=== PATIENT | female | born 1980 | race African-American/Black ===

== ENCOUNTER 2022-06-15 09:20 | Inpatient (IN) | payer BC, OTHER ==
[2022-06-15] MEDS ORDERED: ALBUTEROL 2.5 MG/3 ML NEB SOL ONE ×2 (09:37→11:26)
[2022-06-15] MEDS ORDERED: IPRATROPIUM BROM 0.5MG/2.5ML ONE (09:37)
[2022-06-15] MEDS ORDERED: MAGNESIUM SULFATE 1 gm IVPB 1 GM/100 ML BAG IV ONE (09:37)
[2022-06-15] MEDS ORDERED: METHYLPREDNISOLONE 125 MG INJ ONE (09:37)
--- OUTSIDE RECORDS SUMMARY | 2022-06-15 09:41 | XMS REPORT | Continuity of Care Document ---
:1980 Author Organization [facility] t Address [address] [place] [address] Care Team Providers Name Role Phone CHICHI SAUCEDO Primary Care Physician Unavailable CLARITA PEREZ Attending Clinician Unavailable Paola Crawford DO Attending Clinician Torey Zapata MD Attending Clinician Clarita Perez DO Attending Clinician PAOLA MEDEIROS Attending Clinician Unavailable Paola Navarrete Attending Clinician Andres Cortez Attending Clinician [phone] Roberto Hannon DO Attending Clinician Therapy, [facility] Covid Infusion Attending Clinician Unavailable Renetta Meza NP Attending Clinician RENETTA MEZA Attending Clinician Unavailable Doctor Unassigned, [place] Attending Clinician Unavailable Amber Romero Attending Clinician UNKNOWN, ATTENDING Attending Clinician Unavailable Unknown, Attending Attending Clinician Unavailable Stephen Ernst MD Attending Clinician Radiology Attending Clinician Unavailable RADIOLOGY Attending Clinician Unavailable 2, [facility] Attending Clinician Unavailable Anastacio Sibley MD Attending Clinician ANASTACIO SIBLEY Attending Clinician Unavailable ANASTACIO SIBLEY Attending Clinician Unavailable Lauren Hancock Attending Clinician CLARITA PEREZ Admitting Clinician Unavailable Clarita Perez DO Admitting Clinician RENETTA MEZA Admitting Clinician Unavailable MYA SYED Admitting Clinician Unavailable Payers Payer Name Policy Type Policy Number Effective Date Expiration Date John mortensen [facility] [id number] 2017 00:00:00 [facility] Problems Condition Condition Condition Status Onset Resolution Last Treating Co mments Source Name Details Category Date Date Treatment Clinician Date Asthma Asthma Disease Active 2020-06 Univers attacks attacks 1-21 ity of lasting lasting 00:00: [place] more than more than 00 [facility] 24 hours 24 hours Branch Obstructiv Obstructiv Disease Active U nivers e sleep e sleep 1-09 ity of apnea apnea 00:00: [place] syndrome syndrome 00 Medica l Branch Menorrhagi Menorrhagi Disease Active U nivers a with a with 7-31 ity of regular regular 00:00: [place] cycle cycle 00 Medical Branch Thyroid Thyroid Disease Active Univers nodule nodule 2-09 ity of 00:00: [place] 00 [facility] Branch Allergic Allergic Disease Active Unive rs rhinitis rhinitis 1-11 ity of 00:00: [place] 00 [facility] Branch Crohn's Crohn's Disease Active Univers disease of disease of 1-05 it y of small small 00:00: [place] intestine intestine 00 [facility] Branch Impaired Impaired Disease Active Unive rs fasting fasting 1-05 ity of glucose glucose 00:00: [place] 00 [facility] Branch Chiari I Chiari I Disease Active Unive rs malformati malformati 4-08 it y of on on 00:00: [place] 00 [facility] Branch 348.4 - 348.4 - Diagnosis Active 2013-01-04 Memoria COMPRESSIO COMPRESSIO 5-03 21:42:00 l N OF N OF 00:01: [place] Active 00 10/27/2012 OPID [place] STICHES STICHES Diagnosis Active 2011-062012-04-19 [facility] DRAINING DRAINING 0-17 16:30:00 l Active 00:00: [place] 04/12/2012 00 [facility] LEAKING LEAKING Diagnosis Active 2011-062012-04-05 Memoria FROM FROM 0-10 13:44:00 l SURGERY SURGERY 00:00: [place] SITE SITE 00 Active 04/05/2012 [facility] WOUND LEAK WOUND Diagnosis Active 2011-062012-04-06 Memoria LEAK 0-10 14:39:00 l Active 00:00: [place] 04/05/2012 00 [facility] CHIARI CHIARI Diagnosis Active 2012-03-28 Ny moria MALFORMATI MALFORMATI 9 09:43:00 l ON ON Active 00:00: [place] 02/29/2012 00 [facility] Asthma - Asthma - Problem Active 2012-12-06 Memoria currently currently 20:19:21 l dormant dormant [place] Active Problem 12/06/2012 [facility] SONIYA Fajardo Hiatal Hiatal Problem Active 2012-12-06 Mem oria hernia hernia 20:19:21 l Active [place] Problem 12/06/2012 [facility] SONIYA Fajardo Pain Pain Problem Active 2012-12-06 Memor ia Active 20:19:21 l Problem [place] 12/06/2012 [facility] SONIYA Fajardo COMPRESSIO COMPRESSI Diagnosis Active 2012-03-28 Memoria N OF BRAIN ON OF 09:43:00 l BRAIN [place] Active [facility] WOUND WOUND Diagnosis Active 2012-04-06 [place] DISRUPTION DISRUPTION 14:39:00 l NOS NOS Active Fly n [facility] CEREBROSPI CEREBROSP Diagnosis Active 2012-04-19 Memoria NAL INAL 16:30:00 l RHINORRHEA RHINORRHEA He rmann Active [facility] History of Past Illness Condition Condition Condition Status Onset Resolution Last Treating Co mments Source Name Details Category Date Date Treatment Clinician Date Headache Headache Problem 2016-11-15 2016-11-15 Memoria 11/12/201611-12 04:03:18 04:03:18 l 05:00: Fly [place] 7 Storm[facility] 00 [facility] Allergies, Adverse Reactions, Alerts Allergy Allergy Status Severity Reaction(s) Onset Inactive Treating Comm ents Source Name Type Date Date Clinician PSEUDOEP DRUG Active Anaphylaxis 2020-06 Uni vers HEDRINE- 07-17 ity of GUAIFENE 00:00: [place] SIN 00 Medical Branch Pseudoep Propensi Active Anaphylaxis 2020-06 U nivers hedrine- ty to 07-17 ity of Guaifene adverse 00:00: [place] sin reaction 00 Medical s Branch NO KNOWN Drug Active Univers ALLERGIE Class ity of S [facility] Social History Social Habit Start Date Stop Date Quantity Comments Source Exposure to Not sure [facility] SARS-CoV-2 [facility] (event) Branch Alcohol intake 2021-05-17 2021-05-17 Current University of 00:00:00 00:00:00 non-drinker of [facility] alcohol [place] (finding) Tobacco use and 2017-01-24 2017-01-24 Never used Universit y of exposure 00:00:00 00:00:00 [facility] Sex [birth year] Universit y of 00:00:00 00:00:00 [facility] Smoking Status Start Date Stop Date Source Social History [facility] Medications Ordered Filled Start Stop Current Ordering Indication Dosage Frequency Signature Comments Components Source Medication Medication Date Date Medication? Clinician (SIG) Name Name Ariane- 2020-06 Yes 1{capsu Take 1 U nivers Acetaminoph 07-19 le} capsule by it y of en-Caff 17:50: mouth as [place] (FIORICET) 46 needed. Medica l 50-300-40 Branch mg per capsule hydroxychlo 2020-06 Yes 400mg Take 400 U nivers roquine 1-23 mg by ity of sulfate 17:50: mouth. [place] (HYDROXYCHL 46 Medical OROQUINE Branch ORAL) SULFASALAZI 2020-06 Yes 200mg Take 200 U nivers NE ORAL 1-23 mg by ity of 17:50: mouth 2 [place] 46 (two) Medical times Branch daily. 2 tab SULFADIAZIN 2020-06 Take by Un anupama E ORAL 07-19 mouth. ity of 11:04: 00:00 [place] 23 :00 Medical Branch methylpredn 2020-06- No 4mg Take 4 mg Univers isolone 1-23 11-23 by mouth ity of (METHYLPRED 11:04: 00:00 as needed [place] ORAL) 23 :00 for Other Medical (for flare Branch ups). codeine-gua 2020-06 Yes 10mL Take 10 mL Univers ifenesin 23 by mouth ity of 10-100 mg/5 00:00: every 6 Maninder as mL oral 00 (six) Medical solution hours as Branch needed for Cough. Indication s: cough ipratropium 2020-06 Yes [id number] 3mL Inhale 3 Univers -albuteroL 1-23 mL every 4 ity of 0.5 mg-3 00:00: (four) [place] mg(2.5 mg 00 hours as Medica l base)/3 mL needed for Bra [facility] nebulizer Wheezing. solution sodium 2020-06 Yes [id number] 2{spray Use 2 Un anupama chloride 07-19 } Sprays in ity of 0.65 % 00:00: each [place] nasal spray 00 nostril as Me dical needed Branch (Nasal congestion ). predniSONE 2020-06- No [id number] Take 4 Univers 10 mg 07-19 12-06 tablets by ity of tablet 00:00: 05:59 mouth [place] 00 :00 daily for Medical 3 days, Branch THEN 3 tablets daily for 3 days, THEN 2 tablets daily for 3 days, THEN 1 tablet daily for 3 days. codeine-gua 2020-06 Yes 10mL 10 mL, Univ ers ifenesin 07-18 Oral, ity of (ROBITUSSIN 21:58: Q6HPRN, Maninder as AC) 10-100 32 Starting Medic al mg/5 mL on Tue Branch oral 05/18/21 solution 10 at 1558, mL Until Discontinu ed, Routine, Cough ketorolac 2020-06 Yes 30mg 30 mg, Univer s (TORADOL) 22 Intramuscu ity of injection 21:58: lar, [place] 30 mg 00 Q6HPRN, 4 Medical doses, Branch Starting on Tue05/18/21 at 1558, Until Discontinu ed, Routine, Pain (scale 4-6)
Fa culty member approving Restricted medication : TOREY ZAPATA hydrOXYchlo 2020-06 Yes 400mg 400 mg, Un anupama roQUINE 07-18 Oral, ity of (PLAQUENIL) 15:00: DAILY, [place] tablet 400 00 First dose Med ical mg on Tue Branch 05/18/21 at 0900, Until Discontinu ed
Roberta cation: Rheumatic disorder enoxaparin 2020-06 Yes 40mg 40 mg, Unive rs (LOVENOX) 07-18 Subcutaneo ity of injection 15:00: [place], [place]ILY, [place] 40 mg 00 First dose Medical on Tue Branch 05/18/21 at 0900, Until Discontinu ed, Routine sulfaSALAzi 2020-06 Yes 500mg 500 mg, Un anupama ne 07-18 Oral, BID, ity of (AZULFIDINE 14:00: First dose [place] ) tablet 00 on [facility] Medical 500 mg 05/18/21 Branch at 0800, Until Discontinu ed ondansetron 2020-06 Yes 4mg 4 mg, Slow Univers (ZOFRAN 07-18 IV Push, ity of (PF)) 07:11: Q6HPRN, [place] injection 4 05 Starting Medi jaya mg on Tue Branch 05/18/21 at 0111, Until Discontinu ed, Routine, Nausea and Vomiting (N/V) ALPRAZolam 2020-06 Yes .25mg 0.25 mg, Un anupama (XANAX) 07-18 Oral, ity of tablet 0.25 06:56: QHSPRN, Maninder as mg 18 Starting Medical on Tue Branch 05/18/21 at 0056, Until Discontinu ed, Routine, Insomnia azithromyci 2020-06 Yes 500mg 500 mg, IV Univers n 07-18 Piggyback, ity of (ZITHROMAX) 06:15: Q24H ABX, [place] 500 mg in 00 First dose Medi jaya NaCl 0.9% on Tue (NS) 250 mL 05/18/21 VIAL-MATE at 0015, IV Until piggyback Discontinu ed, Administer over 60 Minutes, 250 mL
Reas on for Anti-Infec tive: Empiric Therapy for Suspected Infection< br>Empiric Therapy Site: Respirator y
Durat ion of therapy: 72 hours methylpredn 2020-06 Yes 60mg 60 mg, Univ ers isolone sod 07-18 Slow IV ity o f succ 06:00: Push, Q6H, [place] (SOLU-MEDRO 00 First dose Me dical L) on Mon Branch injection 05/18/21 60 mg at 0000, Until Discontinu ed, Routine butalbital- 2020-06 Yes 1{tbl} 1 tablet, Univers acetaminoph 07-18 Oral, ity of en-caff 04:13: Q6HPRN, Adriel (ESGIC) 37 Starting Medical 50-325-40 on Sun Branch mg tablet 1 05/17/21 tablet at 2213, Until Discontinu ed, baig benzonatate 2020-06 Yes 100mg 100 mg, Un anupama (TESSALON 07-18 Oral, ity of PERLES) 04:13: TIDPRN, [place] capsule 100 12 Starting Medi jaya mg on Sun Branch 05/17/21 at 2213, Until Discontinu ed, Routine, Cough albuterol 2020-06 Yes 2.5mg 2.5 mg, Univ ers (PROVENTIL) 07-18 Inhalation it y of 2.5 mg /3 01:00: , Q4H, [place] mL (0.083 00 First dose Medi jaya %) (after Branch nebulizer last solution modificati 2.5 mg on) on 05/17/21 at 1900, Until Discontinu ed, HONG budesonide 2020-06 Yes .5mg 0.5 mg, [facility] ers (PULMICORT 07-18 Inhalation ity of RESPULE) 01:00: , BID, [place] nebulizer 00 First dose Medi jaya solution on Sun Branch 0.5 mg 05/17/21 at 1900, Until Discontinu ed, Routine
biology faculty member approving Restricted medication : TOREY ZAPATA ipratropium 2020-06 3mL 3 mL, Univ ers -albuteroL 07-18 Inhalation it y of (DUONEB) 00:46: 00:45 , Q2HPRN, Maninder as 0.5 mg-3 51 :51 Starting Medical mg(2.5 mg on Sun Branch base)/3 mL 05/17/21 nebulizer at 1846, solution 3 Until Mon mL 05/18/21 at 1845, Routine, Wheezing, Shortness of Breath acetaminoph 2020-06 Yes 650mg 650 mg, Un anupama en 07-18 Oral, ity of (TYLENOL) 00:46: Q6HPRN, [place]riel tablet 650 20 Starting Medic al mg on Sun Branch 05/17/21 at 1846, Until Discontinu ed, Routine, Pain (scale 1-3) albuterol 2020-06 No 5mg 5 mg, Univer s (PROVENTIL) 07-17 Inhalation i ty of 2.5 mg /3 23:45: 22:36 , ONCE, 1 [place] mL (0.083 00 :00 dose, On Medica l %) Sun Branch nebulizer 05/17/21 solution 5 at 1745, mg STAT magnesium 2020-06 No 2g 2 g, IV Univ ers sulfate in 07-17 Piggyback, it y of water 2 22:45: 23:06 ONCE, 1 [place] gram/50 mL 00 :00 dose, On Medic al (4 %) Sun Branch infusion 2 05/17/21 g at 1645, Routine albuterol 2020-06 No 5mg 5 mg, Univer s (PROVENTIL) 07-17 Inhalation i ty of 2.5 mg /3 22:30: 21:37 , ONCE, 1 [place] mL (0.083 00 :00 dose, On Medica l %) Sun Branch nebulizer 05/17/21 solution 5 at 1630, mg HONG methylpredn 2020-06 No [id number] 125mg Univers isolone sod 07-17 ity of succ 22:00: 21:36 [place] (SOLU-MEDRO 00 :00 Medical L) Branch injection 125 mg methylpredn 2020-06- No [id number] 125mg 125 mg, Univers isolone sod 07-17 Intramuscu i ty of succ 22:00: 21:36 lar, ONCE, [place] (SOLU-MEDRO 00 :00 1 dose, On Me dical L) Sun Branch injection 05/17/21 125 mg at 1600, Routine methylpredn 2020-06- No [id number] 125mg Univers isolone sod 07-17 ity of succ 22:00: 21:36 [place] (SOLU-MEDRO 00 :00 Medical L) Branch injection 125 mg bamlanivima 2020- No 700mg 700 mg, IV Univers b (EUA) 700 07-29 Infusion, it y of mg in NaCl 19:00: 20:10 ONCE, Tue [place] 0.9% (NS) 00 :00 07/29/20 at Medic al 270 mL 1300, For Branch infusion 1 dose
Ad event sales assistant as an IV infusion over 60 minutes through a PVC infusion set containing a 0.2 or 0.22 micron in-line polyethers ulfone filter.&nb sp; S low or stop infusion and treat as appropriat e if an infusion-r elated reaction occurs. Dilu toño infusion solution should be administer ed immediatel y. If immediate administra tion is not possible, store diluted bamlanivim ab infusion solution for up to 24 hours refrigerat ed at 2?C to 8?C (36?F to 46?F) or up to 7 hours at 20?C to 25?C (68?F to 77?F) including infusion time.<b r> bamlanivima 2020- No 700mg 700 mg, IV Univers b (EUA) 700 07-29 Infusion, it y of mg in NaCl 19:00: 20:10 ONCE, Tue [place] 0.9% (NS) 00 :00 07/29/20 at Medic al 270 mL 1300, For Branch infusion 1 dose
Ad event sales assistant as an IV infusion over 60 minutes through a PVC infusion set containing a 0.2 or 0.22 micron in-line polyethers ulfone filter.&nb sp; S low or stop infusion and treat as appropriat e if an infusion-r elated reaction occurs. Dilu toño infusion solution should be administer ed immediatel y. If immediate administra tion is not possible, store diluted bamlanivim ab infusion solution for up to 24 hours refrigerat ed at 2?C to 8?C (36?F to 46?F) or up to 7 hours at 20?C to 25?C (68?F to 77?F) including infusion time.<b r> NaCl 0.9% 2020- No 500mL at 999 Univ ers (NS) bolus 1-28 01-29 mL/hr, 500 it y of infusion 22:45: 00:45 mL, IV [place] 500 mL 00 :00 Infusion, Medical ONCE, 1 Branch dose, [place] 07/24/20 at 1645, STAT diphenhydrA 2020- No 25mg 25 mg, Uni vers MINE 07-24 Slow IV ity of (BENADRYL) 22:45: 22:03 Push, [place] injection 00 :00 ONCE, 1 Medical 25 mg dose, [facility] Branch 07/24/20 at 1645, STAT metoclopram 2020- No 10mg 10 mg, Uni vers joanna HCl 07-24 Slow IV ity of (REGLAN) 22:45: 22:03 Push, [place] injection 00 :00 ONCE, 1 Medical 10 mg dose, [facility] Branch 07/24/20 at 1645, HONG ketorolac 2020- No 30mg 30 mg, Unive rs (TORADOL) 07-24 Slow IV ity of injection 22:45: 22:03 Push, [place] 30 mg 00 :00 ONCE, 1 Medical dose, [facility] Branch 07/24/20 at 1645, Routine
biology faculty member approving Restricted medication : RENETTA MEZA ondansetron 2020- No 4mg Take 4 mg Univers (ZOFRAN) 4 07-24 by mouth ity of mg tablet 21:24: 00:00 every 8 [place] 45 :00 (eight) Medical hours as Branch needed. methocarbam 2020- No 500mg Take 500 Univers ol 07-24 mg by ity of (ROBAXIN) 21:24: 00:00 mouth as Man[place] as 500 mg 39 :00 needed. Medical tablet Branch acetaminoph 2020- No 1{tbl} Take 1 U nivers en-codeine 07-24 tablet by ity of 300-30 mg 21:24: 00:00 mouth [place] tablet 20 :00 every 4 Medical (four) Branch hours as needed. albuterol Yes [id number] 2{puff} Inhale 2-4 Univers 90 07-24 Puffs ity of mcg/actuati 00:00: every 4 [place] as on inhaler 00 (four) Medical hours as Branch needed for Wheezing or Shortness of Breath. benzonatate 2020-0 Yes [id number] 100mg Take 1 Univers 100 mg 1-28 capsule by ity of capsule 00:00: mouth 3 (three) Medical times Branch daily as needed for Cough. dexAMETHaso 2020-0 Yes [id number] 4mg Take 1 Univers ne 4 mg 1-28 tablet by ity of tablet 00:00: mouth [place] 00 daily. Medical Branch albuterol 2020-0 Yes [id number] 2{puff} Inhale 2-4 Univers 90 1-28 Puffs ity of mcg/actuati 00:00: every 4 Maninder as on inhaler 00 (four) Medical hours as Branch needed for Wheezing or Shortness of Breath. benzonatate 2020-0 Yes [id number] 100mg Take 1 Univers 100 mg 1-28 capsule by ity of capsule 00:00: mouth 3 (three) Medical times Branch daily as needed for Cough. dexAMETHaso 2020-0 Yes [id number] 4mg Take 1 Univers ne 4 mg 1-28 tablet by ity of tablet 00:00: mouth [place] 00 daily. Medical Branch albuterol 2020-0 Yes [id number] 2{puff} Inhale 2-4 Univers 90 1-28 Puffs ity of mcg/actuati 00:00: every 4 Maninder as on inhaler 00 (four) Medical hours as Branch needed for Wheezing or Shortness of Breath. benzonatate 2020-0 Yes [id number] 100mg Take 1 Univers 100 mg 1-28 capsule by ity of capsule 00:00: mouth 3 (three) Medical times Branch daily as needed for Cough. dexAMETHaso 2020-0 Yes [id number] 4mg Take 1 Univers ne 4 mg 1-28 tablet by ity of tablet 00:00: mouth [place] 00 daily. Medical Branch albuterol 2020-0 Yes [id number] 2{puff} Inhale 2-4 Univers 90 1-28 Puffs ity of mcg/actuati 00:00: every 4 Man[place] as on inhaler 00 (four) Medical hours as Branch needed for Wheezing or Shortness of Breath. benzonatate 2020-0 Yes [id number] 100mg Take 1 Univers 100 mg 1-28 capsule by ity of capsule 00:00: mouth 3 (three) Medical times Branch daily as needed for Cough. dexAMETHaso Yes [id number] 4mg Take 1 Univers ne 4 mg 1-28 tablet by ity of tablet 00:00: mouth [place] 00 daily. Medical Branch albuterol Yes [id number] 2{puff} Inhale 2-4 Univers 90 1-28 Puffs ity of mcg/actuati 00:00: every 4 Maninder as on inhaler 00 (four) Medical hours as Branch needed for Wheezing or Shortness of Breath. benzonatate Yes [id number] 100mg Take 1 Univers 100 mg 1-28 capsule by ity of capsule 00:00: mouth 3 (three) Medical times Branch daily as needed for Cough. dexAMETHaso Yes [id number] 4mg Take 1 Univers ne 4 mg 1-28 tablet by ity of tablet 00:00: mouth [place] 00 daily. Medical Branch benzonatate Yes [id number] 100mg Take 1 Univers 100 mg 1-28 capsule by ity of capsule 00:00: mouth 3 (three) Medical times Branch daily as needed for Cough. albuterol 2020- No [id number] 2{puff} Inhale 2-4 Univers 90 1-28 11-21 Puffs ity of mcg/actuati 00:00: 00:00 every 4 [place] on inhaler 00 :00 (four) Medical hours as Branch needed for Wheezing or Shortness of Breath. dexAMETHaso 2020- No [id number] 4mg Take 1 Univers ne 4 mg 1-28 11-21 tablet by ity of tablet 00:00: 00:00 mouth [place] 00 :00 daily. Medical Branch ketorolac 2020- No 30mg Univers (TORADOL) 07-06 ity of injection 00:30: 23:37 [place] 30 mg 00 :00 Medical Branch ketorolac 2020- No 30mg 30 mg, Unive rs (TORADOL) 07-06 Intramuscu ity of injection 00:30: 23:37 lar, ONCE, [place] 30 mg 00 :00 1 dose, Medical 1/9/21 Branch at 1830, Routine
biology faculty member approving Restricted medication : AMBER ZAVALETA Butalbital- Yes 1{capsu Take 1 U nivers Acetaminoph 1-09 le} capsule by it y of en-Caff 21:15: mouth as [place] (FIORICET) 51 needed. Medica l 50-300-40 Branch mg per capsule SULFADIAZIN 0 Yes Take by Uni vers E ORAL 1-09 mouth. ity of 21:15: [address] SULFASALAZI 0 Yes Take by Uni vers NE ORAL 1-09 mouth. ity of 21:15: [address] Butalbital- Yes 1{capsu Take 1 U nivers Acetaminoph 1-09 le} capsule by it y of en-Caff 21:15: mouth as [place] (FIORICET) 51 needed. Medica l 50-300-40 Branch mg per capsule SULFADIAZIN 0 Yes Take by Uni vers E ORAL 1-09 mouth. ity of 21:15: [address] SULFASALAZI 0 Yes Take by Uni vers NE ORAL 1-09 mouth. ity of 21:15: [address] Butalbital- 0 Yes 1{capsu Take 1 U nivers Acetaminoph 1-09 le} capsule by it y of en-Caff 21:15: mouth as [place] (FIORICET) 51 needed. Medica l 50-300-40 Branch mg per capsule SULFADIAZIN 0 Yes Take by Uni vers E ORAL 1-09 mouth. ity of 21:15: [address] SULFASALAZI 0 Yes Take by Uni vers NE ORAL 1-09 mouth. ity of 21:15: [address] Butalbital- 0 Yes 1{capsu Take 1 U nivers Acetaminoph 1-09 le} capsule by it y of en-Caff 21:15: mouth as [place] (FIORICET) 51 needed. Medica l 50-300-40 Branch mg per capsule SULFADIAZIN 2020-0 Yes Take by Uni vers E ORAL 1-09 mouth. ity of 21:15: [address] SULFASALAZI 0 Yes Take by Uni vers NE ORAL 1-09 mouth. ity of 21:15: [place] [address] Medical Branch Butalbital- 2020-0 Yes 1{capsu Take 1 U nivers Acetaminoph 07-05 le} capsule by it y of en-Caff 21:15: mouth as [place] (FIORICET) 51 needed. Medica l 50-300-40 Branch mg per capsule SULFADIAZIN 2020-0 Yes Take by Uni vers E ORAL -09 mouth. ity of 21:15: [place] [address] Medical Branch SULFASALAZI 2020-0 Yes Take by Uni vers NE ORAL -09 mouth. ity of 21:15: [place] [address] Medical Branch Butalbital- 2020-0 Yes 1{capsu Take 1 U nivers Acetaminoph 07-05 le} capsule by it y of en-Caff 21:15: mouth as [place] (FIORICET) 51 needed. Medica l 50-300-40 Branch mg per capsule SULFADIAZIN 2020-0 Yes Take by Uni vers E ORAL -09 mouth. ity of 21:15: [place] [address] Medical Branch SULFASALAZI 2020-0 Yes Take by Uni vers NE ORAL - mouth. ity of 21:15: [place] [address] Medical Branch Butalbital- 0 Yes 1{capsu Take 1 U nivers Acetaminoph 07-05 le} capsule by it y of en-Caff 21:15: mouth as [place] (FIORICET) 51 needed. Medica l 50-300-40 Branch mg per capsule SULFADIAZIN 2020-0 Yes Take by Uni vers E ORAL -09 mouth. ity of 21:15: [place] [address] Medical Branch SULFASALAZI 2020-0 Yes Take by Uni vers NE ORAL -09 mouth. ity of 21:15: [place] [address] Medical Branch hydroxychlo 2020-0 Yes Take by Uni vers roquine -09 mouth. ity of sulfate 21:14: [place] (HYDROXYCHL 52 Medical OROQUINE Branch ORAL) hydroxychlo 2020-0 Yes Take by Uni vers roquine 1-09 mouth. ity of sulfate 21:14: [place] (HYDROXYCHL 52 Medical OROQUINE Branch ORAL) hydroxychlo 2020-0 Yes Take by Uni vers roquine 1-09 mouth. ity of sulfate 21:14: [place] (HYDROXYCHL 52 Medical OROQUINE Branch ORAL) hydroxychlo 0 Yes Take by Uni vers roquine 1-09 mouth. ity of sulfate 21:14: [place] (HYDROXYCHL 52 Medical OROQUINE Branch ORAL) hydroxychlo 0 Yes Take by Uni vers roquine 1-09 mouth. ity of sulfate 21:14: [place] (HYDROXYCHL 52 Medical OROQUINE Branch ORAL) hydroxychlo 0 Yes Take by Uni vers roquine -09 mouth. ity of sulfate 21:14: [place] (HYDROXYCHL 52 Medical OROQUINE Branch ORAL) hydroxychlo 0 Yes Take by Uni vers roquine 1-09 mouth. ity of sulfate 21:14: [place] (HYDROXYCHL 52 Medical OROQUINE Branch ORAL) Butalbital- Yes 1{capsu Take 1 U nivers Acetaminoph 07-05 le} capsule by it y of en-Caff 15:15: mouth as [place] (FIORICET) needed. Medica l 50-300-40 Branch mg per capsule SULFADIAZIN Yes Take by Uni vers E ORAL - mouth. ity of 15:15: [place] [address] Medical Branch SULFASALAZI Yes Take by Uni vers NE ORAL - mouth. ity of 15:15: [place] [address] Medical Branch hydroxychlo Yes Take by Uni vers roquine -09 mouth. ity of sulfate 15:14: [place] (HYDROXYCHL 52 Medical OROQUINE Branch ORAL) azelastine- 2019-1 Yes SPRAY 1 Uni vers fluticasone 0-23 SPRAY IEN ity of 137-50 00:00: BID [place] mcg/spray 00 Medical nasal spray Branch azelastine- 2020-1 Yes SPRAY 1 Uni vers fluticasone 0-23 SPRAY IEN ity of 137-50 00:00: BID [place] mcg/spray 00 Medical nasal spray Branch azelastine- 2020-1 Yes SPRAY 1 Uni vers fluticasone 0-23 SPRAY IEN ity of 137-50 00:00: BID [place] mcg/spray 00 Medical nasal spray Branch azelastine- 2020-1 Yes SPRAY 1 Uni vers fluticasone 0-23 SPRAY IEN ity of 137-50 00:00: BID [place] mcg/spray 00 Medical nasal spray Branch azelastine- 2020-1 Yes SPRAY 1 Uni vers fluticasone 0-23 SPRAY IEN ity of 137-50 00:00: BID [place] mcg/spray 00 Medical nasal spray Branch azelastine- 2020-1 Yes SPRAY 1 Uni vers fluticasone 0-23 SPRAY IEN ity of 137-50 00:00: BID [place] mcg/spray 00 Medical nasal spray Branch azelastine- 2020-1 Yes SPRAY 1 Uni vers fluticasone 0-23 SPRAY IEN ity of 137-50 00:00: BID [place] mcg/spray 00 Medical nasal spray Branch azelastine- 2020-1 Yes SPRAY 1 Uni vers fluticasone 0-23 SPRAY IEN ity of 137-50 00:00: BID [place] mcg/spray 00 Medical nasal spray Branch azelastine- 2020-1 Yes SPRAY 1 Uni vers fluticasone 0-23 SPRAY IEN ity of 137-50 00:00: BID [place] mcg/spray 00 Medical nasal spray Branch diphenhydrA 2020- No 25mg 25 mg, [facility] vers MINE 11-11 Slow IV ity of (BENADRYL) 05:30: 04:28 [place], [place] injection 00 :00 ONCE, 1 Medical 25 mg dose, [facility] 11/12/19 at 0030, STAT famotidine 2019- No 20mg 20 mg, Univ ers (PEPCID 11-11 Slow IV ity of (PF)) 04:30: 03:29 [place], [place] injection 00 :00 ONCE, 1 Medical 20 mg dose, [facility] 11/11/19 at 2330, Routine methylpredn 2020- No 125mg 125 mg, IV [facility] isolone sod 11-11 Piggyback, i ty of succ 04:30: 03:30 ONCE, 1 [place] (SOLU-MEDRO 00 :00 dose, [facility]) 11/11/19 at Branch injection 2330, STAT 125 mg EPINEPHrine 2020- No .3mg 0.3 mg, [facility] [place] 1:1,000 (1 11-11 Intramuscu it y of mg/mL) 04:30: 03:23 [place] (ADRENALIN[place] 00 :00 1 dose, Medic al injection [facility] 0.3 mg 11/11/19 at 2330, STAT predniSONE 2020-0 Yes [id number] Take 40mg [facility] 20 mg 5-18 by mouth ity of tablet 00:00: daily for [place] 00 two days. Medical Branch predniSONE 2020-0 Yes [id number] Take 40mg [facility] 20 mg 5-18 by mouth ity of tablet 00:00: daily for [place] two days. Medical Branch predniSONE 2020-0 Yes [id number] Take 40mg [facility] 20 mg 5-18 by mouth ity of tablet 00:00: daily for [place] two days. Medical Branch predniSONE 2020-0 Yes [id number] Take 40mg [facility] 20 mg 5-18 by mouth ity of tablet 00:00: daily for [place] two days. Medical Branch predniSONE 2020-0 Yes [id number] Take 40mg [facility] 20 mg 5-18 by mouth ity of tablet 00:00: daily for [place] two days. Medical Branch predniSONE 2020-0 Yes [id number] Take 40mg [facility] 20 mg 5-18 by mouth ity of tablet 00:00: daily for [place] two days. Medical Branch predniSONE 2020-0 Yes [id number] Take 40mg [facility] 20 mg 5-18 by mouth ity of tablet 00:00: daily for [place] two days. Medical Branch predniSONE 2020-0 Yes [id number] Take 40mg [facility] 20 mg 5-18 by mouth ity of tablet 00:00: daily for [place] two days. Medical Branch predniSONE 2020-0 Yes [id number] Take 40mg [facility] 20 mg 5-18 by mouth ity of tablet 00:00: daily for [place] two days. Medical Branch predniSONE 2020-0 1- No [id number] Take 40mg [facility] 20 mg 5-18 11-21 by mouth ity of tablet 00:00: 00:00 daily for [place] 00 :00 two days. Medical Branch EPINEPHrine 2020-0 2020- No [id number] .3mg 0.3 mL by [facility] (EPIPEN) 5-18 05-19 Intramuscu ity of 0.3 mg/0.3 00:00: 04:59 lar route [place] mL 00 :00 once now Medical injection for 1 Branch dose. predniSONE 2020-0 Yes [id number] 2 PO q d. [facility] 10 mg 2-10 [id number] ity of tablet 00:00: [place] 00 Medical Branch predniSONE 2020-0 Yes [id number] 2 PO q d. [facility] 10 mg 2-10 [id number] ity of tablet 00:00: [place] 00 Medical Branch predniSONE 2020-0 Yes [id number] 2 PO q d. [facility] 10 mg 2-10 [id number] ity of tablet 00:00: [place] 00 Medical Branch predniSONE 2020-0 Yes [id number] 2 PO q d. [facility] 10 mg 2-10 [id number] ity of tablet 00:00: [place] 00 Medical Branch predniSONE 2020-0 Yes [id number] 2 PO q d. [facility] 10 mg 2-10 [id number] ity of tablet 00:00: [place] 00 Medical Branch predniSONE 2020-0 Yes [id number] 2 PO q d. [facility] 10 mg 2-10 [id number] ity of tablet 00:00: [place] 00 Medical Branch predniSONE 2020-0 Yes [id number] 2 PO q d. [facility] 10 mg 2-10 [id number] ity of tablet 00:00: [place] 00 Medical Branch predniSONE 2020-0 Yes [id number] 2 PO q d. [facility] 10 mg 2-10 [id number] ity of tablet 00:00: [place] 00 Medical Branch predniSONE 2020-0 Yes [id number] 2 PO q d. [facility] 10 mg 2-10 [id number] ity of tablet 00:00: [place] 00 Medical Branch predniSONE 2020-0 Yes [id number] 2 PO q d. [facility] 10 mg 2-10 [id number] ity of tablet 00:00: [place] 00 Medical Branch predniSONE 2020-0 Yes [id number] 2 PO q d. [facility] 10 mg 2-10 [id number] ity of tablet 00:00: [place] 00 Medical Branch predniSONE 2020-0 Yes [id number] 2 PO q d. [facility] 10 mg 2-10 [id number] ity of tablet 00:00: [place] 00 Medical Branch predniSONE 2020-0 Yes [id number] 2 PO q d. [facility] 10 mg 2-10 [id number] ity of tablet 00:00: [place] 00 Medical Branch predniSONE 2020-0 2020- No [id number] 2 PO q d. [facility] 10 mg 2-10 05-18 [id number] ity of tablet 00:00: 00:00 [place] 00 :00 Medical Branch ondansetron 2019-0 Yes 4mg Take 4 mg U nivers (ZOFRAN) 4 4-16 by mouth ity o f mg tablet 13:28: every 8 [place] 06 (eight) Medical hours as Branch needed. acetaminoph 2019-0 Yes 1{tbl} Take 1 [facility] [place] en-codeine 4-16 tablet by ity of 300-30 mg 13:28: mouth [place] tablet 06 every 4 Medical (four) Branch hours as needed. Butalbital- 2019-0 Yes 1{capsu Take 1 U nivers Acetaminoph 4-16 le} capsule by it y of en-Caff 13:28: mouth as [place] (FIORICET) 06 needed. Medica l 50-300-40 Branch mg per capsule methocarbam 2019-0 Yes 500mg Take 500 U nivers ol 4-16 mg by ity of (ROBAXIN) 13:28: mouth as [place] 500 mg 06 needed. Medical tablet Branch ondansetron 2019-0 Yes 4mg Take 4 mg U nivers (ZOFRAN) 4 4-16 by mouth ity o f mg tablet 13:28: every 8 [place] 06 (eight) Medical hours as Branch needed. ondansetron 2019-0 Yes 4mg Take 4 mg U nivers (ZOFRAN) 4 4-16 by mouth ity o f mg tablet 13:28: every 8 [place] 06 (eight) Medical hours as Branch needed. acetaminoph 2019-0 Yes 1{tbl} Take 1 [facility] [place] en-codeine 4-16 tablet by ity of 300-30 mg 13:28: mouth [place] tablet 06 every 4 Medical (four) Branch hours as needed. Butalbital- 2019-0 Yes 1{capsu Take 1 U nivers Acetaminoph 4-16 le} capsule by it y of en-Caff 13:28: mouth as [place] (FIORICET) 06 needed. Medica l 50-300-40 Branch mg per capsule methocarbam 2019-0 Yes 500mg Take 500 U nivers ol 4-16 mg by ity of (ROBAXIN) 13:28: mouth as [place] 500 mg 06 needed. Medical tablet Branch acetaminoph 2019-0 Yes 1{tbl} Take 1 [facility] [place] en-codeine 4-16 tablet by ity of 300-30 mg 13:28: mouth [place] tablet 06 every 4 Medical (four) Branch hours as needed. ondansetron 2019-0 Yes 4mg Take 4 mg U nivers (ZOFRAN) 4 4-16 by mouth ity o f mg tablet 13:28: every 8 [place] 06 (eight) Medical hours as Branch needed. acetaminoph 2019-0 Yes 1{tbl} Take 1 [facility] [place] en-codeine 4-16 tablet by ity of 300-30 mg 13:28: mouth [place] tablet 06 every 4 Medical (four) Branch hours as needed. Butalbital- 2019-0 Yes 1{capsu Take 1 U nivers Acetaminoph 4-16 le} capsule by it y of en-Caff 13:28: mouth as [place] (FIORICET) 06 needed. Medica l 50-300-40 Branch mg per capsule methocarbam [id number] Yes 500mg Take 500 U nivers ol 4-16 mg by ity of (ROBAXIN) 13:28: mouth as [place] 500 mg 06 needed. Medical tablet Branch ondansetron 2019-0 Yes 4mg Take 4 mg U nivers (ZOFRAN) 4 4-16 by mouth ity o f mg tablet 13:28: every 8 [place] 06 (eight) Medical hours as Branch needed. acetaminoph 2019-0 Yes 1{tbl} Take 1 [facility] [place] en-codeine 4-16 tablet by ity of 300-30 mg 13:28: mouth [place] tablet 06 every 4 Medical (four) Branch hours as needed. Butalbital- 0 Yes 1{capsu Take 1 U nivers Acetaminoph 4-16 le} capsule by it y of en-Caff 13:28: mouth as [place] (FIORICET) 06 needed. Medica l 50-300-40 Branch mg per capsule methocarbam [id number] Yes 500mg Take 500 U nivers ol 4-16 mg by ity of (ROBAXIN) 13:28: mouth as [place] 500 mg 06 needed. Medical tablet Branch ondansetron 2019-0 Yes 4mg Take 4 mg U nivers (ZOFRAN) 4 4-16 by mouth ity o f mg tablet 13:28: every 8 [place] 06 (eight) Medical hours as Branch needed. acetaminoph 2019-0 Yes 1{tbl} Take 1 [facility] [place] en-codeine 4-16 tablet by ity of 300-30 mg 13:28: mouth [place] tablet 06 every 4 Medical (four) Branch hours as needed. Butalbital- 2019-0 Yes 1{capsu Take 1 U nivers Acetaminoph 4-16 le} capsule by it y of en-Caff 13:28: mouth as [place] (FIORICET) 06 needed. Medica l 50-300-40 Branch mg per capsule Butalbital- 2019-0 Yes 1{capsu Take 1 U nivers Acetaminoph 4-16 le} capsule by it y of en-Caff 13:28: mouth as [place] (FIORICET) 06 needed. Medica l 50-300-40 Branch mg per capsule methocarbam [id number] Yes 500mg Take 500 U nivers ol 4-16 mg by ity of (ROBAXIN) 13:28: mouth as [place] 500 mg 06 needed. Medical tablet Branch methocarbam 20190 Yes 500mg Take 500 U nivers ol 4-16 mg by ity of (ROBAXIN) 13:28: mouth as [place] 500 mg 06 needed. Medical tablet Branch ondansetron 0 Yes 4mg Take 4 mg U nivers (ZOFRAN) 4 4-16 by mouth ity o f mg tablet 13:28: every 8 [place] 06 (eight) Medical hours as Branch needed. acetaminoph 2018-0 Yes 1{tbl} Take 1 Un [place] en-codeine 4-16 tablet by ity of 300-30 mg 13:28: mouth [place] tablet 06 every 4 Medical (four) Branch hours as needed. Butalbital- Yes 1{capsu Take 1 U nivers Acetaminoph 4-16 le} capsule by it y of en-Caff 13:28: mouth as [place] (FIORICET) 06 needed. Medica l 50-300-40 Branch mg per capsule methocarbam 20190 Yes 500mg Take 500 U nivers ol 4-16 mg by ity of (ROBAXIN) 13:28: mouth as [place] 500 mg 06 needed. Medical tablet Branch ondansetron 2019-0 Yes 4mg Take 4 mg U nivers (ZOFRAN) 4 4-16 by mouth ity o f mg tablet 13:28: every 8 [place] 06 (eight) Medical hours as Branch needed. acetaminoph 2019-0 Yes 1{tbl} Take 1 [facility] [place] en-codeine 4-16 tablet by ity of 300-30 mg 13:28: mouth [place] tablet 06 every 4 Medical (four) Branch hours as needed. Butalbital- 2018-0 Yes 1{capsu Take 1 U nivers Acetaminoph 4-16 le} capsule by it y of en-Caff 13:28: mouth as [place] (FIORICET) 06 needed. Medica l 50-300-40 Branch mg per capsule methocarbam 2019-0 Yes 500mg Take 500 U nivers ol 4-16 mg by ity of (ROBAXIN) 13:28: mouth as [place] 500 mg 06 needed. Medical tablet Branch ondansetron 2019-0 Yes 4mg Take 4 mg U nivers (ZOFRAN) 4 4-16 by mouth ity o f mg tablet 13:28: every 8 [place] 06 (eight) Medical hours as Branch needed. acetaminoph 2019-0 Yes 1{tbl} Take 1 [facility] [place] en-codeine 4-16 tablet by ity of 300-30 mg 13:28: mouth [place] tablet 06 every 4 Medical (four) Branch hours as needed. methocarbam 2019-0 Yes 500mg Take 500 U nivers ol 4-16 mg by ity of (ROBAXIN) 13:28: mouth as [place] 500 mg 06 needed. Medical tablet Branch ondansetron 2019-0 Yes 4mg Take 4 mg U nivers (ZOFRAN) 4 4-16 by mouth ity o f mg tablet 13:28: every 8 [place] 06 (eight) Medical hours as Branch needed. ondansetron 2019-0 Yes 4mg Take 4 mg U nivers (ZOFRAN) 4 4-16 by mouth ity o f mg tablet 13:28: every 8 [place] 06 (eight) Medical hours as Branch needed. acetaminoph 2019-0 Yes 1{tbl} Take 1 Un [place] en-codeine 4-16 tablet by ity of 300-30 mg 13:28: mouth [place] tablet 06 every 4 Medical (four) Branch hours as needed. acetaminoph 2019-0 Yes 1{tbl} Take 1 Un [place] en-codeine 4-16 tablet by ity of 300-30 mg 13:28: mouth [place] tablet 06 every 4 Medical (four) Branch hours as needed. methocarbam 2019-0 Yes 500mg Take 500 U nivers ol 4-16 mg by ity of (ROBAXIN) 13:28: mouth as [place] 500 mg 06 needed. Medical tablet Branch ondansetron 2019-0 Yes 4mg Take 4 mg U nivers (ZOFRAN) 4 4-16 by mouth ity o f mg tablet 13:28: every 8 [place] 06 (eight) Medical hours as Branch needed. acetaminoph 2019-0 Yes 1{tbl} Take 1 Un [place] en-codeine 4-16 tablet by ity of 300-30 mg 13:28: mouth [place] tablet 06 every 4 Medical (four) Branch hours as needed. methocarbam 2019-0 Yes 500mg Take 500 U nivers ol 4-16 mg by ity of (ROBAXIN) 13:28: mouth as [place] 500 mg 06 needed. Medical tablet Branch Butalbital- 20190 Yes 1{capsu Take 1 U nivers Acetaminoph 4-16 le} capsule by it y of en-Caff 13:28: mouth as [place] (FIORICET) 06 needed. Medica l 50-300-40 Branch mg per capsule methocarbam 2019-0 Yes 500mg Take 500 U nivers ol 4-16 mg by ity of (ROBAXIN) 13:28: mouth as [place] 500 mg 06 needed. Medical tablet Branch ondansetron 2018-0 Yes 4mg Take 4 mg U nivers (ZOFRAN) 4 4-16 by mouth ity o f mg tablet 13:28: every 8 [place] 06 (eight) Medical hours as Branch needed. acetaminoph 2018-0 Yes 1{tbl} Take 1 Un [place] en-codeine 4-16 tablet by ity of 300-30 mg 13:28: mouth [place] tablet 06 every 4 Medical (four) Branch hours as needed. Butalbital- 0 Yes 1{capsu Take 1 U nivers Acetaminoph 4-16 le} capsule by it y of en-Caff 13:28: mouth as [place] (FIORICET) 06 needed. Medica l 50-300-40 Branch mg per capsule methocarbam 2019-0 Yes 500mg Take 500 U nivers ol 4-16 mg by ity of (ROBAXIN) 13:28: mouth as [place] 500 mg 06 needed. Medical tablet Branch ondansetron 2019-0 Yes 4mg Take 4 mg U nivers (ZOFRAN) 4 4-16 by mouth ity o f mg tablet 13:28: every 8 [place] 06 (eight) Medical hours as Branch needed. acetaminoph 2019-0 Yes 1{tbl} Take 1 Un [place] en-codeine 4-16 tablet by ity of 300-30 mg 13:28: mouth [place] tablet 06 every 4 Medical (four) Branch hours as needed. Butalbital- 2019-0 Yes 1{capsu Take 1 U nivers Acetaminoph 4-16 le} capsule by it y of en-Caff 13:28: mouth as [place] (FIORICET) 06 needed. Medica l 50-300-40 Branch mg per capsule methocarbam 20190 Yes 500mg Take 500 U nivers ol 4-16 mg by ity of (ROBAXIN) 13:28: mouth as [place] 500 mg 06 needed. Medical tablet Branch ondansetron 2019-0 Yes 4mg Take 4 mg U nivers (ZOFRAN) 4 4-16 by mouth ity o f mg tablet 13:28: every 8 [place] 06 (eight) Medical hours as Branch needed. acetaminoph 2019-0 Yes 1{tbl} Take 1 Un [place] en-codeine 4-16 tablet by ity of 300-30 mg 13:28: mouth [place] tablet 06 every 4 Medical (four) Branch hours as needed. Butalbital- 0 Yes 1{capsu Take 1 U nivers Acetaminoph 4-16 le} capsule by it y of en-Caff 13:28: mouth as [place] (FIORICET) 06 needed. Medica l 50-300-40 Branch mg per capsule methocarbam 20190 Yes 500mg Take 500 U nivers ol 4-16 mg by ity of (ROBAXIN) 13:28: mouth as [place] 500 mg 06 needed. Medical tablet Branch ondansetron 2019-0 Yes 4mg Take 4 mg U nivers (ZOFRAN) 4 4-16 by mouth ity o f mg tablet 13:28: every 8 [place] 06 (eight) Medical hours as Branch needed. acetaminoph 2019-0 Yes 1{tbl} Take 1 [facility] [place] en-codeine 4-16 tablet by ity of 300-30 mg 13:28: mouth [place] tablet 06 every 4 Medical (four) Branch hours as needed. Butalbital- 2019-0 Yes 1{capsu Take 1 U nivers Acetaminoph 4-16 le} capsule by it y of en-Caff 13:28: mouth as [place] (FIORICET) 06 needed. Medica l 50-300-40 Branch mg per capsule methocarbam Yes 500mg Take 500 U nivers ol 4-16 mg by ity of (ROBAXIN) 13:28: mouth as [place] 500 mg 06 needed. Medical tablet Branch ondansetron Yes 4mg Take 4 mg U nivers (ZOFRAN) 4 4-16 by mouth ity o f mg tablet 13:28: every 8 [place] 06 (eight) Medical hours as Branch needed. acetaminoph Yes 1{tbl} Take 1 [facility] [place] en-codeine 4-16 tablet by ity of 300-30 mg 13:28: mouth [place] tablet 06 every 4 Medical (four) Branch hours as needed. Butalbital- Yes 1{capsu Take 1 U nivers Acetaminoph 4-16 le} capsule by it y of en-Caff 13:28: mouth as [place] (FIORICET) 06 needed. Medica l 50-300-40 Branch mg per capsule methocarbam Yes 500mg Take 500 U nivers ol 4-16 mg by ity of (ROBAXIN) 13:28: mouth as [place] 500 mg 06 needed. Medical tablet Branch ondansetron 2017-06 Yes 4mg Take 1 Univ ers (ZOFRAN) 4 2-18 tablet by ity of mg tablet 00:00: mouth [place] 00 every 8 Medical (eight) Branch hours as needed for Nausea and Vomiting (N/V). traMADOL 2017-06 Yes 50mg Take 1 [facility] (ULTRAM) 50 2-18 tablet by ity of mg tablet 00:00: mouth [place] 00 every 6 Medical (six) Branch hours as needed for Pain (scale 7-10). ondansetron 2017-06 Yes 4mg Take 1 Univ ers (ZOFRAN) 4 2-18 tablet by ity of mg tablet 00:00: mouth [place] 00 every 8 Medical (eight) Branch hours as needed for Nausea and Vomiting (N/V). traMADOL 2017- Yes 50mg Take 1 [facility] (ULTRAM) 50 2-18 tablet by ity of mg tablet 00:00: mouth [place] 00 every 6 Medical (six) Branch hours as needed for Pain (scale 7-10). ondansetron 2018- Yes 4mg Take 1 Univ ers (ZOFRAN) 4 2-18 tablet by ity of mg tablet 00:00: mouth [place] 00 every 8 Medical (eight) Branch hours as needed for Nausea and Vomiting (N/V). traMADOL 2017- Yes 50mg Take 1 [facility] (ULTRAM) 50 2-18 tablet by ity of mg tablet 00:00: mouth [place] 00 every 6 Medical (six) Branch hours as needed for Pain (scale 7-10). ondansetron 2017- Yes 4mg Take 1 Univ ers (ZOFRAN) 4 2-18 tablet by ity of mg tablet 00:00: mouth [place] 00 every 8 Medical (eight) Branch hours as needed for Nausea and Vomiting (N/V). ondansetron 2017- Yes 4mg Take 1 Univ ers (ZOFRAN) 4 2-18 tablet by ity of mg tablet 00:00: mouth [place] 00 every 8 Medical (eight) Branch hours as needed for Nausea and Vomiting (N/V). traMADOL 2017- Yes 50mg Take 1 [facility] (ULTRAM) 50 2-18 tablet by ity of mg tablet 00:00: mouth [place] 00 every 6 Medical (six) Branch hours as needed for Pain (scale 7-10). traMADOL 2017- Yes 50mg Take 1 [facility] (ULTRAM) 50 2-18 tablet by ity of mg tablet 00:00: mouth [place] 00 every 6 Medical (six) Branch hours as needed for Pain (scale 7-10). ondansetron 2017- Yes 4mg Take 1 Univ ers (ZOFRAN) 4 2-18 tablet by ity of mg tablet 00:00: mouth [place] 00 every 8 Medical (eight) Branch hours as needed for Nausea and Vomiting (N/V). traMADOL 2017- Yes 50mg Take 1 [facility] (ULTRAM) 50 2-18 tablet by ity of mg tablet 00:00: mouth [place] 00 every 6 Medical (six) Branch hours as needed for Pain (scale 7-10). ondansetron 2017- Yes 4mg Take 1 Univ ers (ZOFRAN) 4 2-18 tablet by ity of mg tablet 00:00: mouth [place] 00 every 8 Medical (eight) Branch hours as needed for Nausea and Vomiting (N/V). traMADOL 2017- Yes 50mg Take 1 [facility] (ULTRAM) 50 2-18 tablet by ity of mg tablet 00:00: mouth [place] 00 every 6 Medical (six) Branch hours as needed for Pain (scale 7-10). ondansetron 2018- Yes 4mg Take 1 Univ ers (ZOFRAN) 4 2-18 tablet by ity of mg tablet 00:00: mouth [place] 00 every 8 Medical (eight) Branch hours as needed for Nausea and Vomiting (N/V). traMADOL 2017- Yes 50mg Take 1 [facility] (ULTRAM) 50 2-18 tablet by ity of mg tablet 00:00: mouth [place] 00 every 6 Medical (six) Branch hours as needed for Pain (scale 7-10). ondansetron 2017- Yes 4mg Take 1 Univ ers (ZOFRAN) 4 2-18 tablet by ity of mg tablet 00:00: mouth [place] 00 every 8 Medical (eight) Branch hours as needed for Nausea and Vomiting (N/V). traMADOL 2017- Yes 50mg Take 1 [facility] (ULTRAM) 50 2-18 tablet by ity of mg tablet 00:00: mouth [place] 00 every 6 Medical (six) Branch hours as needed for Pain (scale 7-10). ondansetron 2017- Yes 4mg Take 1 Univ ers (ZOFRAN) 4 2-18 tablet by ity of mg tablet 00:00: mouth [place] 00 every 8 Medical (eight) Branch hours as needed for Nausea and Vomiting (N/V). traMADOL 2017- Yes 50mg Take 1 [facility] (ULTRAM) 50 2-18 tablet by ity of mg tablet 00:00: mouth [place] 00 every 6 Medical (six) Branch hours as needed for Pain (scale 7-10). ondansetron 2018- Yes 4mg Take 1 Univ ers (ZOFRAN) 4 2-18 tablet by ity of mg tablet 00:00: mouth [place] 00 every 8 Medical (eight) Branch hours as needed for Nausea and Vomiting (N/V). ondansetron 2018- Yes 4mg Take 1 Univ ers (ZOFRAN) 4 2-18 tablet by ity of mg tablet 00:00: mouth [place] 00 every 8 Medical (eight) Branch hours as needed for Nausea and Vomiting (N/V). traMADOL 2017- Yes 50mg Take 1 [facility] (ULTRAM) 50 2-18 tablet by ity of mg tablet 00:00: mouth [place] 00 every 6 Medical (six) Branch hours as needed for Pain (scale 7-10). traMADOL 2017- Yes 50mg Take 1 [facility] (ULTRAM) 50 2-18 tablet by ity of mg tablet 00:00: mouth [place] 00 every 6 Medical (six) Branch hours as needed for Pain (scale 7-10). traMADOL 2017- Yes 50mg Take 1 [facility] (ULTRAM) 50 2-18 tablet by ity of mg tablet 00:00: mouth [place] 00 every 6 Medical (six) Branch hours as needed for Pain (scale 7-10). traMADOL 2017- Yes 50mg Take 1 [facility] (ULTRAM) 50 2-18 tablet by ity of mg tablet 00:00: mouth [place] 00 every 6 Medical (six) Branch hours as needed for Pain (scale 7-10). traMADOL 2017- Yes 50mg Take 1 [facility] (ULTRAM) 50 2-18 tablet by ity of mg tablet 00:00: mouth [place] 00 every 6 Medical (six) Branch hours as needed for Pain (scale 7-10). traMADOL 2017-06 Yes 50mg Take 1 [facility] (ULTRAM) 50 2-18 tablet by ity of mg tablet 00:00: mouth [place] 00 every 6 Medical (six) Branch hours as needed for Pain (scale 7-10). ondansetron 2017-06 Yes 4mg Take 1 Univ ers (ZOFRAN) 4 2-18 tablet by ity of mg tablet 00:00: mouth [place] 00 every 8 Medical (eight) Branch hours as needed for Nausea and Vomiting (N/V). traMADOL 2017- Yes 50mg Take 1 [facility] (ULTRAM) 50 2-18 tablet by ity of mg tablet 00:00: mouth [place] 00 every 6 Medical (six) Branch hours as needed for Pain (scale 7-10). traMADOL 2017- Yes 50mg Take 1 [facility] (ULTRAM) 50 2-18 tablet by ity of mg tablet 00:00: mouth [place] 00 every 6 Medical (six) Branch hours as needed for Pain (scale 7-10). traMADOL 2018- Yes 50mg Take 1 [facility] (ULTRAM) 50 2-18 tablet by ity of mg tablet 00:00: mouth [place] 00 every 6 Medical (six) Branch hours as needed for Pain (scale 7-10). ondansetron 2017- Yes 4mg Take 1 Univ ers (ZOFRAN) 4 2-18 tablet by ity of mg tablet 00:00: mouth [place] 00 every 8 Medical (eight) Branch hours as needed for Nausea and Vomiting (N/V). traMADOL 2017-06 Yes 50mg Take 1 [facility] (ULTRAM) 50 2-18 tablet by ity of mg tablet 00:00: mouth [place] 00 every 6 Medical (six) Branch hours as needed for Pain (scale 7-10). ondansetron 2017-06 Yes 4mg Take 1 Univ ers (ZOFRAN) 4 2-18 tablet by ity of mg tablet 00:00: mouth [place] 00 every 8 Medical (eight) Branch hours as needed for Nausea and Vomiting (N/V). traMADOL 2017-06 Yes 50mg Take 1 [facility] (ULTRAM) 50 2-18 tablet by ity of mg tablet 00:00: mouth [place] 00 every 6 Medical (six) Branch hours as needed for Pain (scale 7-10). ondansetron 2017-06 Yes 4mg Take 1 Univ ers (ZOFRAN) 4 2-18 tablet by ity of mg tablet 00:00: mouth [place] 00 every 8 Medical (eight) Branch hours as needed for Nausea and Vomiting (N/V). traMADOL 2017-06 Yes 50mg Take 1 [facility] (ULTRAM) 50 2-18 tablet by ity of mg tablet 00:00: mouth [place] 00 every 6 Medical (six) Branch hours as needed for Pain (scale 7-10). ondansetron 2017-06 Yes 4mg Take 1 Univ ers (ZOFRAN) 4 2-18 tablet by ity of mg tablet 00:00: mouth [place] 00 every 8 Medical (eight) Branch hours as needed for Nausea and Vomiting (N/V). traMADOL 2017-06 Yes 50mg Take 1 [facility] (ULTRAM) 50 2-18 tablet by ity of mg tablet 00:00: mouth [place] 00 every 6 Medical (six) Branch hours as needed for Pain (scale 7-10). ondansetron 2017-06 No 4mg Take 1 Uni vers (ZOFRAN) 4 2-18 -28 tablet by ity of mg tablet 00:00: 00:00 mouth [place] 00 :00 every 8 Medical (eight) Branch hours as needed for Nausea and Vomiting (N/V). albuterol Yes [id number] 2{puff} Inhale 2 [facility] 90 1-13 Puffs ity of mcg/actuati 00:00: every 6 [place] as on inhaler 00 (six) Medical hours as Branch needed for Wheezing or Shortness of Breath. albuterol Yes [id number] 2.5mg Inhale 3 [facility] 2.5 mg /3 1-13 mL every 4 ity of mL (0.083 00:00: (four) [place] %) 00 hours as Medical nebulizer needed for Bran ch solution Wheezing or Shortness of Breath. albuterol Yes [id number] 2{puff} Inhale 2 [facility] 90 1-13 Puffs ity of mcg/actuati 00:00: every 6 [place] as on inhaler 00 (six) Medical hours as Branch needed for Wheezing or Shortness of Breath. albuterol Yes [id number] 2.5mg Inhale 3 [facility] 2.5 mg /3 1-13 mL every 4 ity of mL (0.083 00:00: (four) [place] %) 00 hours as Medical nebulizer needed for Bran ch solution Wheezing or Shortness of Breath. albuterol Yes [id number] 2{puff} Inhale 2 [facility] 90 1-13 Puffs ity of mcg/actuati 00:00: every 6 [place] as on inhaler 00 (six) Medical hours as Branch needed for Wheezing or Shortness of Breath. albuterol Yes [id number] 2.5mg Inhale 3 [facility] 2.5 mg /3 1-13 mL every 4 ity of mL (0.083 00:00: (four) [place] %) 00 hours as Medical nebulizer needed for Bran ch solution Wheezing or Shortness of Breath. albuterol Yes [id number] 2{puff} Inhale 2 [facility] 90 1-13 Puffs ity of mcg/actuati 00:00: every 6 [place] as on inhaler 00 (six) Medical hours as Branch needed for Wheezing or Shortness of Breath. albuterol Yes [id number] 2.5mg Inhale 3 [facility] 2.5 mg /3 1-13 mL every 4 ity of mL (0.083 00:00: (four) [place] %) 00 hours as Medical nebulizer needed for Bran ch solution Wheezing or Shortness of Breath. albuterol Yes [id number] 2{puff} Inhale 2 [facility] 90 1-13 Puffs ity of mcg/actuati 00:00: every 6 [place] as on inhaler 00 (six) Medical hours as Branch needed for Wheezing or Shortness of Breath. albuterol Yes [id number] 2.5mg Inhale 3 [facility] 2.5 mg /3 1-13 mL every 4 ity of mL (0.083 00:00: (four) [place] %) 00 hours as Medical nebulizer needed for Bran ch solution Wheezing or Shortness of Breath. albuterol Yes [id number] 2{puff} Inhale 2 [facility] 90 1-13 Puffs ity of mcg/actuati 00:00: every 6 [place] as on inhaler 00 (six) Medical hours as Branch needed for Wheezing or Shortness of Breath. albuterol Yes [id number] 2.5mg Inhale 3 [facility] 2.5 mg /3 1-13 mL every 4 ity of mL (0.083 00:00: (four) [place] %) 00 hours as Medical nebulizer needed for Bran ch solution Wheezing or Shortness of Breath. albuterol Yes [id number] 2{puff} Inhale 2 Univers 90 1-13 Puffs ity of mcg/actuati 00:00: every 6 Maninder as on inhaler 00 (six) Medical hours as Branch needed for Wheezing or Shortness of Breath. albuterol Yes [id number] 2.5mg Inhale 3 [facility] 2.5 mg /3 1-13 mL every 4 ity of mL (0.083 00:00: (four) [place] %) 00 hours as Medical nebulizer needed for Bran ch solution Wheezing or Shortness of Breath. albuterol Yes [id number] 2{puff} Inhale 2 Univers 90 1-13 Puffs ity of mcg/actuati 00:00: every 6 Maninder as on inhaler 00 (six) Medical hours as Branch needed for Wheezing or Shortness of Breath. albuterol Yes [id number] 2.5mg Inhale 3 [facility] 2.5 mg /3 1-13 mL every 4 ity of mL (0.083 00:00: (four) [place] %) 00 hours as Medical nebulizer needed for Bran ch solution Wheezing or Shortness of Breath. albuterol 2017- Yes [id number] 2{puff} Inhale 2 Univers 90 1-13 Puffs ity of mcg/actuati 00:00: every 6 Maninder as on inhaler 00 (six) Medical hours as Branch needed for Wheezing or Shortness of Breath. albuterol 2017- Yes [id number] 2.5mg Inhale 3 [facility] 2.5 mg /3 1-13 mL every 4 ity of mL (0.083 00:00: (four) [place] %) 00 hours as Medical nebulizer needed for Bran ch solution Wheezing or Shortness of Breath. albuterol 2017- Yes [id number] 2{puff} Inhale 2 Univers 90 1-13 Puffs ity of mcg/actuati 00:00: every 6 Maninder as on inhaler 00 (six) Medical hours as Branch needed for Wheezing or Shortness of Breath. albuterol 2017- Yes [id number] 2.5mg Inhale 3 [facility] 2.5 mg /3 1-13 mL every 4 ity of mL (0.083 00:00: (four) [place] %) 00 hours as Medical nebulizer needed for Bran ch solution Wheezing or Shortness of Breath. albuterol 2017- Yes [id number] 2{puff} Inhale 2 [facility] 90 1-13 Puffs ity of mcg/actuati 00:00: every 6 Maninder as on inhaler 00 (six) Medical hours as Branch needed for Wheezing or Shortness of Breath. albuterol 2017- Yes [id number] 2.5mg Inhale 3 [facility] 2.5 mg /3 1-13 mL every 4 ity of mL (0.083 00:00: (four) [place] %) 00 hours as Medical nebulizer needed for Bran ch solution Wheezing or Shortness of Breath. albuterol 2017- Yes [id number] 2{puff} Inhale 2 [facility] 90 1-13 Puffs ity of mcg/actuati 00:00: every 6 Maninder as on inhaler 00 (six) Medical hours as Branch needed for Wheezing or Shortness of Breath. albuterol 2017- Yes [id number] 2.5mg Inhale 3 [facility] 2.5 mg /3 1-13 mL every 4 ity of mL (0.083 00:00: (four) [place] %) 00 hours as Medical nebulizer needed for Bran ch solution Wheezing or Shortness of Breath. albuterol 2017- Yes [id number] 2{puff} Inhale 2 [facility] 90 1-13 Puffs ity of mcg/actuati 00:00: every 6 Maninder as on inhaler 00 (six) Medical hours as Branch needed for Wheezing or Shortness of Breath. albuterol 2017- Yes [id number] 2.5mg Inhale 3 [facility] 2.5 mg /3 1-13 mL every 4 ity of mL (0.083 00:00: (four) [place] %) 00 hours as Medical nebulizer needed for Bran ch solution Wheezing or Shortness of Breath. albuterol 2017- Yes [id number] 2.5mg Inhale 3 [facility] 2.5 mg /3 1-13 mL every 4 ity of mL (0.083 00:00: (four) [place] %) 00 hours as Medical nebulizer needed for Bran ch solution Wheezing or Shortness of Breath. albuterol 2017- Yes [id number] 2{puff} Inhale 2 [facility] 90 1-13 Puffs ity of mcg/actuati 00:00: every 6 Maninder as on inhaler 00 (six) Medical hours as Branch needed for Wheezing or Shortness of Breath. albuterol Yes [id number] 2{puff} Inhale 2 [facility] 90 1-13 Puffs ity of mcg/actuati 00:00: every 6 Maninder as on inhaler 00 (six) Medical hours as Branch needed for Wheezing or Shortness of Breath. albuterol Yes [id number] 2.5mg Inhale 3 [facility] 2.5 mg /3 1-13 mL every 4 ity of mL (0.083 00:00: (four) [place] %) 00 hours as Medical nebulizer needed for Bran ch solution Wheezing or Shortness of Breath. albuterol Yes [id number] 2{puff} Inhale 2 [facility] 90 1-13 Puffs ity of mcg/actuati 00:00: every 6 Maninder as on inhaler 00 (six) Medical hours as Branch needed for Wheezing or Shortness of Breath. albuterol 2017- Yes [id number] 2.5mg Inhale 3 [facility] 2.5 mg /3 1-13 mL every 4 ity of mL (0.083 00:00: (four) [place] %) 00 hours as Medical nebulizer needed for Bran ch solution Wheezing or Shortness of Breath. albuterol Yes [id number] 2{puff} Inhale 2 Univers 90 1-13 Puffs ity of mcg/actuati 00:00: every 6 Maninder as on inhaler 00 (six) Medical hours as Branch needed for Wheezing or Shortness of Breath. albuterol Yes [id number] 2.5mg Inhale 3 [facility] 2.5 mg /3 1-13 mL every 4 ity of mL (0.083 00:00: (four) [place] %) 00 hours as Medical nebulizer needed for Bran ch solution Wheezing or Shortness of Breath. albuterol Yes [id number] 2{puff} Inhale 2 Univers 90 1-13 Puffs ity of mcg/actuati 00:00: every 6 Mnainder as on inhaler 00 (six) Medical hours as Branch needed for Wheezing or Shortness of Breath. albuterol Yes [id number] 2.5mg Inhale 3 [facility] 2.5 mg /3 1-13 mL every 4 ity of mL (0.083 00:00: (four) [place] %) 00 hours as Medical nebulizer needed for Bran ch solution Wheezing or Shortness of Breath. albuterol Yes [id number] 2{puff} Inhale 2 [facility] 90 1-13 Puffs ity of mcg/actuati 00:00: every 6 Maninder as on inhaler 00 (six) Medical hours as Branch needed for Wheezing or Shortness of Breath. albuterol Yes [id number] 2.5mg Inhale 3 [facility] 2.5 mg /3 1-13 mL every 4 ity of mL (0.083 00:00: (four) [place] %) 00 hours as Medical nebulizer needed for Bran ch solution Wheezing or Shortness of Breath. albuterol Yes [id number] 2{puff} Inhale 2 [facility] 90 1-13 Puffs ity of mcg/actuati 00:00: every 6 Maninder as on inhaler 00 (six) Medical hours as Branch needed for Wheezing or Shortness of Breath. albuterol Yes [id number] 2.5mg Inhale 3 [facility] 2.5 mg /3 1-13 mL every 4 ity of mL (0.083 00:00: (four) [place] %) 00 hours as Medical nebulizer needed for Bran ch solution Wheezing or Shortness of Breath. albuterol Yes [id number] 2{puff} Inhale 2 [facility] 90 1-13 Puffs ity of mcg/actuati 00:00: every 6 Maninder as on inhaler 00 (six) Medical hours as Branch needed for Wheezing or Shortness of Breath. albuterol Yes [id number] 2.5mg Inhale 3 Univers 2.5 mg /3 1-13 mL every 4 ity of mL (0.083 00:00: (four) [place] %) 00 hours as Medical nebulizer needed for Bran ch solution Wheezing or Shortness of Breath. albuterol Yes [id number] 2{puff} Inhale 2 [facility] 90 1-13 Puffs ity of mcg/actuati 00:00: every 6 Maninder as on inhaler 00 (six) Medical hours as Branch needed for Wheezing or Shortness of Breath. albuterol Yes [id number] 2.5mg Inhale 3 [facility] 2.5 mg /3 1-13 mL every 4 ity of mL (0.083 00:00: (four) [place] %) 00 hours as Medical nebulizer needed for Bran ch solution Wheezing or Shortness of Breath. albuterol Yes [id number] 2{puff} Inhale 2 [facility] 90 1-13 Puffs ity of mcg/actuati 00:00: every 6 Maninder as on inhaler 00 (six) Medical hours as Branch needed for Wheezing or Shortness of Breath. albuterol Yes [id number] 2.5mg Inhale 3 [facility] 2.5 mg /3 1-13 mL every 4 ity of mL (0.083 00:00: (four) [place] %) 00 hours as Medical nebulizer needed for Bran ch solution Wheezing or Shortness of Breath. Acetaminoph Yes 1 cap, PO, Memoria en 300 MG / 5-19 TID, PRN l butalbital 21:34: Headache, He rmann 50 MG / 00 Do not Caffeine 40 exceed 6 MG / capsules Codeine in 24 Phosphate hours, X 5 30 MG Oral day, # 15 Capsule cap, 0 [Fioricet Refill(s) with Codeine] Acetaminoph 2017- Yes 1 cap, PO, Memoria en 300 MG / 5-19 TID, PRN l butalbital 21:34: Headache, He rmann 50 MG / 00 Do not Caffeine 40 exceed 6 MG / capsules Codeine in 24 Phosphate hours, X 5 30 MG Oral day, # 15 Capsule cap, 0 [Fioricet Refill(s) with Codeine] Reglan 2017-0 No 10 mg, Memoria 5-19 Route: l 19:07: IVP, Drug Irvin 00 form: INJ, ONCE, kg, Priority: STAT, Start date: 11/12/16 14:07:00 CDT, Stop date: 11/12/16 14:07:00 CDT Benadryl 2017-0 No 25 mg, Memoria 5-19 Route: l 19:07: IVP, ONCE, Irvin 00 kg, Priority: STAT, Start date: 11/12/16 14:07:00 CDT, Stop date: 11/12/16 14:07:00 CDT Reglan 2017-0 No 10 mg, Memoria 5 Route: l 19:07: IVP, Drug [place] 00 form: INJ, ONCE, kg, Priority: STAT, Start date: 11/12/16 14:07:00 CDT, Stop date: 11/12/16 14:07:00 CDT Benadryl 2017-0 No 25 mg, Memoria 5-19 Route: l 19:07: IVP, ONCE, Irvin 00 kg, Priority: STAT, Start date: 11/12/16 14:07:00 CDT, Stop date: 11/12/16 14:07:00 CDT Sodium 2017-0 No 1,000 mL, Memori a Chloride 5-19 1,000 l 0.154 19:06: ml/hr, Irvin MEQ/ML 00 Infuse Injectable Over: 1 Solution hr, Route: IV, ONCE, Priority: STAT, kg, Start date: 11/12/16 14:06:00 CDT, Duration: 1 doses or times, Stop date: 11/12/16 14:06:00 CDT Sodium 2017-0 No 1,000 mL, Memori a Chloride 5-19 1,000 l 0.154 19:06: ml/hr, Irvin MEQ/ML 00 Infuse Injectable Over: 1 Solution hr, Route: IV, ONCE, Priority: STAT, kg, Start date: 11/12/16 14:06:00 CDT, Duration: 1 doses or times, Stop date: 11/12/16 14:06:00 CDT dexamethaso 2011-06 No Mike 1 mg, 1 Me moria ne 0-25 Neil tab, l 02:00: Abdunnur Route: PO, Her leon 00 Drug form: TAB, Q12H, Dosing Weight 95.455, kg, Start date: 04/19/12 21:00:00, Duration: 30 day, Stop date: 05/19/12 9:00:00 dexamethaso 2011-06 No Mike 1 mg, 1 Me moria ne 0-25 Neil tab, l 02:00: Abdunnur Route: PO, Her leon 00 Drug form: TAB, Q12H, Dosing Weight 95.455, kg, Start date: 04/19/12 21:00:00, Duration: 30 day, Stop date: 05/19/12 9:00:00 lidocaine 2011-06 No Paola Route: Phong tali 1% 0-24 Prince Saunders SUB-Q, l injectable 16:22: Drug Form: H ermann solution 00 INJ, Dosing Weight 95.455, kg, ONCE, Start date: 04/19/12 11:22:00, Stop date: 04/19/12 11:22:00 lidocaine 2011-06 No Paola Route: Phong tali 1% 0-24 Prince Saunders SUB-Q, l injectable 16:22: Drug Form: H ermann solution 00 INJ, Dosing Weight 95.455, kg, ONCE, Start date: 04/19/12 11:22:00, Stop date: 04/19/12 11:22:00 docusate 2011-06 Yes Mike 100 mg, 0, Me moria sodium 100 0-23 Neil PO, BID, l mg oral 15:09: Abdunnur 20 cap, Her leon capsule 08 Substituti on Allowed docusate 2011-06 Yes Mike 100 mg, 0, Me moria sodium 100 0-23 Neil PO, BID, l mg oral 15:09: Abdunnur 20 cap, Her leon capsule 08 Substituti on Allowed Valium 10 2011-06 Yes Mike 10 mg, 1 Mem oria mg oral 0-23 Neil tab, PO, l tablet 15:09: Abdunnur TID, PRN, He rmann 05 60 tab, muscle spasm, Substituti on Allowed, TAB Valium 10 2011-06 Yes Mike 10 mg, 1 Mem oria mg oral 0-23 Neil tab, PO, l tablet 15:09: Abdunnur TID, PRN, He rmann 05 60 tab, muscle spasm, Substituti on Allowed, TAB Dexter 2011-06 Yes Mike 1 tab, PO, Memor ia 10/325 oral 0-23 Neil Q4H, PRN, l tablet 15:08: Abdunnur 30 tab, 2, H ermann 58 2, as needed for pain, Substituti on Allowed, Maintenanc e, TAB Dexter 2011-06 Yes Mike 1 tab, PO, Memor ia 10/325 oral 0-23 Neil Q4H, PRN, l tablet 15:08: Abdunnur 30 tab, 2, H ermann 58 2, as needed for pain, Substituti on Allowed, Maintenanc e, TAB dexamethaso 2011-06 No Mike 1 mg, 1 Me moria ne 0-23 Neil tab, l 14:00: Abdunnur Route: PO, Her leon 00 Drug form: TAB, QID, Dosing Weight 95.455, kg, Start date: 04/18/12 9:00:00, Duration: 30 day, Stop date: 05/17/12 21:00:00 dexamethaso 2011-06 No Mike 1 mg, 1 Me moria ne 0-23 Neil tab, l 14:00: Abdunnur Route: PO, Her leon 00 Drug form: TAB, QID, Dosing Weight 95.455, kg, Start date: 04/18/12 9:00:00, Duration: 30 day, Stop date: 05/17/12 21:00:00 Sodium 2011- No Mike 250 mL, Memoria Chloride 0-22 Neil Rate: On l 0.9% 11:56: Abdunnur call for Luci nn (titrate) 00 use with 250 mL blood product administra tion, Dosing Weight 95.455, kg, Route: IV, Total Volume: 250, Duration: 1 doses or times, Stop date: 04/18/12 6:55:00, Replace Every: 24 hr Sodium 2011-06 No Mike 250 mL, Memoria Chloride 0-22 Neil Rate: On l 0.9% 11:56: Abdunnur call for Luci nn (titrate) 00 use with 250 mL blood product administra tion, Dosing Weight 95.455, kg, Route: IV, Total Volume: 250, Duration: 1 doses or times, Stop date: 04/18/12 6:55:00, Replace Every: 24 hr NS 1,000 mL 2011-06 No Mike 1,000 mL, Memoria 0-22 Neil Rate: 150 l 11:55: Abdunnur ml/hr, [place] 00 Infuse over: 6.7 hr, Route: IV, kg, Total Volume: 1,000, Start date: 04/17/12 6:55:00, Duration: 30 day, Stop date: 05/17/12 6:54:00 NS 1,000 mL 2011-06 No Mike 1,000 mL, Memoria 0-22 Neil Rate: 150 l 11:55: Abdunnur ml/hr, Irvin 00 Infuse over: 6.7 hr, Route: IV, kg, Total Volume: 1,000, Start date: 04/17/12 6:55:00, Duration: 30 day, Stop date: 05/17/12 6:54:00 Dextrose 2011-06 No Neil 25 gm, 50 Me moria 50% Syringe 0-21 Ping-Villegas mL, Route: l 21:26: Lo IVP, Drug [place] 00 Form: INJ, Dosing Weight 95.455, kg, PRN, PRN Abnormal Lab Result, Start date: 04/16/12 16:26:00, Duration: 30 day, Stop date: 05/16/12 15:25:00 insulin 2011-06 No Neil 3 unit, Memor ia regular 0-21 Ping-Villegas 0.03 mL, l human 21:26: Lo Route: [place] recombinant 00 SUB-Q, 100 Drug form: units/mL SOLN, PRN, injectable Dosing solution Weight 95.455, kg, PRN Abnormal Lab Result, Start date: 04/16/12 16:26:00, Duration: 30 day, Stop date: 05/16/12 15:25:00 Dextrose 2011-06 No Neil 25 gm, 50 Me moria 50% Syringe 0-21 Ping-Villegas mL, Route: l 21:26: Lo IVP, Drug Irvin 00 Form: INJ, Dosing Weight 95.455, kg, PRN, PRN Abnormal Lab Result, Start date: 04/16/12 16:26:00, Duration: 30 day, Stop date: 05/16/12 15:25:00 insulin 2011-06 No Neil 3 unit, Memor ia regular 0-21 Ping-Villegas 0.03 mL, l human 21:26: Lo Route: [place] recombinant 00 SUB-Q, 100 Drug form: units/mL SOLN, PRN, injectable Dosing solution Weight 95.455, kg, PRN Abnormal Lab Result, Start date: 04/16/12 16:26:00, Duration: 30 day, Stop date: 05/16/12 15:25:00 vancomycin 2011-06 No Mike 1.25 gm, Me moria + Sodium 0-20 Neil Route: IV, l Chloride 14:30: Abdunnur ABXQ8H, He rmann 0.9% IV 250 00 Dosing mL Weight 95.455, kg, Start date: 04/15/12 9:30:00, Duration: 30 day, Stop date: 05/15/12 1:30:00 vancomycin 2011-06 No Mike 1.25 gm, Me moria + Sodium 0-20 Neil Route: IV, l Chloride 14:30: Abdunnur ABXQ8H, He rmann 0.9% IV 250 00 Dosing mL Weight 95.455, kg, Start date: 04/15/12 9:30:00, Duration: 30 day, Stop date: 05/15/12 1:30:00 Citrate of 2011-06 No Teresa 300 ml, Me moria Magnesia 0-19 Shaun Route: PO, l 18:30: Raymond Drug Form: Herm janine 00 LIQ, Dosing Weight 95.455, kg, ONCE, Start date: 04/14/12 13:30:00, Stop date: 04/14/12 13:30:00 Citrate of 2011-06 No Teresa 300 ml, Me moria Magnesia 0-19 Shaun Route: PO, l 18:30: Raymond Drug Form: Herm janine 00 LIQ, Dosing Weight 95.455, kg, ONCE, Start date: 04/14/12 13:30:00, Stop date: 04/14/12 13:30:00 Dilaudid 2011-06 No Saint-Aaro 0.5 mg, Memoria 0-19 n Chris 0.25 mL, l 05:50: Route: IV, [place] 00 Drug form: INJ, Q3H, Dosing Weight 95.455, kg, PRN Pain, Start date: 04/14/12 0:50:00, Duration: 30 day, Stop date: 05/14/12 0:49:00 Dilaudid 2011-06 No Saint-Aaro 0.5 mg, Memoria 0-19 n Chris 0.25 mL, l 05:50: Route: IV, [place] Drug form: INJ, Q3H, Dosing Weight 95.455, kg, PRN Pain, Start date: 04/14/12 0:50:00, Duration: 30 day, Stop date: 05/14/12 0:49:00 Fle 2011-06 No Teresa 1 supp, Memoria Glycerin 0-19 Shaun Route: CT, l Suppositori 03:13: Raymond Drug Form: Irvin es Adult 00 SUPP, Dosing Weight 95.455, kg, Daily, PRN as needed for constipati on, Start date: 04/13/12 22:13:00, Stop date: 05/13/12 22:12:00 Fleet 2011-06 No Teresa 1 supp, Memoria Glycerin 0-19 Shaun Route: CT, l Suppositori 03:13: Raymond Drug Form: [place] es Adult 00 SUPP, Dosing Weight 95.455, kg, Daily, PRN as needed for constipati on, Start date: 04/13/12 22:13:00, Stop date: 05/13/12 22:12:00 magnesium 2011-06 No Teresa 300 ml, Mem oria citrate 0-19 Shaun Route: PO, l 03:11: Raymond Drug Form: Herm janine 00 LIQ, Dosing Weight 95.455, kg, ONCE, Start date: 04/13/12 22:11:00, Stop date: 04/13/12 22:11:00 magnesium 2011-06 No Teresa 300 ml, Mem oria citrate 0-19 Shaun Route: PO, l 03:11: Raymond Drug Form: Herm janine 00 LIQ, Dosing Weight 95.455, kg, ONCE, Start date: 04/13/12 22:11:00, Stop date: 04/13/12 22:11:00 docusate 2011-06 No Teresa 100 mg, 1 Me moria 0-19 Shaun cap, l 03:10: Raymond Route: PO, Herm janine 00 Drug form: CAP, BID, Dosing Weight 95.455, kg, PRN Constipati on, Start date: 04/13/12 22:10:00, Duration: 30 day, Stop date: 05/13/12 22:09:00 docusate 2011-06 No Teresa 100 mg, 1 Me moria 0-19 Shaun cap, l 03:10: Raymond Route: PO, Herm janine 00 Drug form: CAP, BID, Dosing Weight 95.455, kg, PRN Constipati on, Start date: 04/13/12 22:10:00, Duration: 30 day, Stop date: 05/13/12 22:09:00 heparin 2011-06 No Mike 5,000 Memoria 0-18 Neil unit, 1 l 21:00: Abdunnur mL, Route: Her leon 00 SUB-Q, Drug form: INJ, Q8H, Dosing Weight 95.455, kg, Start date: 04/13/12 16:00:00, Duration: 30 day, Stop date: 05/13/12 8:00:00 heparin 2011-06 No Mike 5,000 Memoria 0-18 Neil unit, 1 l 21:00: Abdunnur mL, Route: Her leon 00 SUB-Q, Drug form: INJ, Q8H, Dosing Weight 95.455, kg, Start date: 04/13/12 16:00:00, Duration: 30 day, Stop date: 05/13/12 8:00:00 Valium 2011-06 No Mike 10 mg, 2 Memori a 0-18 Neil tab, l 19:38: Abdunnur Route: PO, Her leon 00 Drug form: TAB, TID, Dosing Weight 95.455, kg, PRN Muscle Spasms, Start date: 04/13/12 14:38:00, Duration: 30 day, Stop date: 05/13/12 14:37:00 Valium 2011-06 No Mike 10 mg, 2 Memori a 0-18 Neil tab, l 19:38: Abdunnur Route: PO, Her leon 00 Drug form: TAB, TID, Dosing Weight 95.455, kg, PRN Muscle Spasms, Start date: 04/13/12 14:38:00, Duration: 30 day, Stop date: 05/13/12 14:37:00 senna 8.6 2011-06 No Teresa 8.6 mg, 1 M emoria mg oral 0-18 Shaun tab, l tablet 14:00: Raymond Route: PO, He rm 00 Drug Form: TAB, Dosing Weight 95.455, kg, BID, Start date: 04/13/12 9:00:00, Duration: 30 day, Stop date: 05/12/12 17:00:00 Pepcid 20 2011-06 No Mike 20 mg, 1 Mem oria mg oral 0-18 Neil tab, l tablet 14:00: Abdunnur Route: PO, H ermann 00 Drug form: TAB, Q12H, Dosing Weight 95.455, kg, Start date: 04/13/12 9:00:00, Duration: 30 day, Stop date: 05/12/12 21:00:00 senna 8.6 2011-06 No Teresa 8.6 mg, 1 M emoria mg oral 0-18 Shaun tab, l tablet 14:00: Raymond Route: PO, He rmann 00 Drug Form: TAB, Dosing Weight 95.455, kg, BID, Start date: 04/13/12 9:00:00, Duration: 30 day, Stop date: 05/12/12 17:00:00 Pepcid 20 2011-06 No Mike 20 mg, 1 Mem oria mg oral 0-18 Neil tab, l tablet 14:00: Abdunnur Route: PO, H ermann 00 Drug form: TAB, Q12H, Dosing Weight 95.455, kg, Start date: 04/13/12 9:00:00, Duration: 30 day, Stop date: 05/12/12 21:00:00 dexamethaso 2011-06 No Mike 4 mg, 1 Me moria ne 0-18 Neil tab, l 11:00: Abdunnur Route: PO, Her leon 00 Drug form: TAB, Q6H, Dosing Weight 95.455, kg, Start date: 04/13/12 6:00:00, Duration: 30 day, Stop date: 05/12/12 22:00:00 dexamethaso 2011-06 No Mike 4 mg, 1 Me moria ne 0-18 Neil tab, l 11:00: Abdunnur Route: PO, Her leon 00 Drug form: TAB, Q6H, Dosing Weight 95.455, kg, Start date: 04/13/12 6:00:00, Duration: 30 day, Stop date: 05/12/12 22:00:00 vancomycin 2011-06 No Neil 1 gm, Phong tali 0-18 Ping-Villegas Route: l 08:43: Lo IVPB, Drug Irvin 00 form: INJ, Q12H, Dosing Weight 95.455, kg, Priority: STAT, Start date: 04/13/12 3:43:00, Duration: 30 day, Stop date: 05/12/12 21:00:00 cefepime 2011-06 No Mike 2 gm, Memoria 0-18 Neil Route: l 08:43: Abdunnur IVPB, Drug Her leon 00 form: INJ, [id number], Dosing Weight 95.455, kg, (CrCl 30 - 49 ml/min, 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), Priority: STAT, Start date: 04/13/12 3:43:00, Stop date: 05/12/12 15:43:00 vancomycin 2011-06 No Neil 1 gm, Phong tali 0-18 Ping-Villegas Route: l 08:43: Lo IVPB, Drug [place] 00 form: INJ, Q12H, Dosing Weight 95.455, kg, Priority: STAT, Start date: 04/13/12 3:43:00, Duration: 30 day, Stop date: 05/12/12 21:00:00 cefepime 2011-06 No Mike 2 gm, Memoria 0-18 Neil Route: l 08:43: Abdunnur IVPB, Drug Her leon 00 form: INJ, [id number], Dosing Weight 95.455, kg, (CrCl 30 - 49 ml/min, 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), Priority: STAT, Start date: 04/13/12 3:43:00, Stop date: 05/12/12 15:43:00 lidocaine 2011-06 No -Aaro 20 mL, Memoria 1% 0-18 n Chris Route: l 02:12: SUB-Q, [place] 00 Drug Form: INJ, Dosing Weight 95.455, kg, ONCE, Start date: 04/12/12 21:12:00, Stop date: 04/12/12 21:12:00 FENTanyl - 2011-06 No [facility] 50 M [facility] one time 0-18 n Chris microgram, l ICU bolus 02:12: 1 mL, Irvin dose 00 Route: IVP, Drug form: INJ, ONCE, Dosing Weight 95.455, kg, Start date: 04/12/12 21:12:00, Stop date: 04/12/12 21:12:00 lidocaine 2011-06 No -Therono 20 mL, Memoria 1% 0-18 n Chris Route: l 02:12: SUB-Q, Irvin 00 Drug Form: INJ, Dosing Weight 95.455, kg, ONCE, Start date: 04/12/12 21:12:00, Stop date: 04/12/12 21:12:00 FENTanyl - 2011-06 No Jin 50 M [facility] one time 0-18 n Chris microgram, l ICU bolus 02:12: 1 mL, Bramwell dose 00 Route: IVP, Drug form: INJ, ONCE, Dosing Weight 95.455, kg, Start date: 04/12/12 21:12:00, Stop date: 04/12/12 21:12:00 Ancef 2011-06 No -Therono 2 gm, 100 M [facility] 0-18 n Chris mL, Route: l 02:11: IVPB, Drug [place] 00 form: INJ, ONCE, Dosing Weight 95.455, kg, Start date: 04/12/12 21:11:00, Duration: 1 doses or times, Stop date: 04/12/12 21:11:00 Ancef 2011-06 No Saint-[facility]aro 2 gm, 100 M [facility] [place] 0[place] n Chris mL, Route: l 02:11: IVPB, Drug Irvin 00 form: INJ, ONCE, Dosing Weight 95.455, kg, Start date: 04/12/12 21:11:00, Duration: 1 doses or times, Stop date: 04/12/12 21:11:00 Saline 2011-06 No Etresa 5 ml, Memoria Flush 0.9% 0-18 Shaun Route: l 02:00: Raymond IVP, Drug Luci nn 00 Form: INJ, Dosing Weight 95.455, kg, Q12H, Start date: 04/12/12 21:00:00, Duration: 30 day, Stop date: 05/12/12 9:00:00 docusate 2011-06 No Saint-Aaro 100 mg, 1 Memoria 0-18 n Chris cap, l 02:00: Route: PO, Irvin 00 Drug form: CAP, Q12H, Dosing Weight 95.455, kg, Start date: 04/12/12 21:00:00, Duration: 30 day, Stop date: 05/12/12 9:00:00 Saline 2011-06 No Teresa 5 ml, Memoria Flush 0.9% 0-18 Shaun Route: l 02:00: Raymond IVP, Drug Luci nn 00 Form: INJ, Dosing Weight 95.455, kg, Q12H, Start date: 04/12/12 21:00:00, Duration: 30 day, Stop date: 05/12/12 9:00:00 docusate 2011-06 No Saint-Aaro 100 mg, 1 Memoria 0-18 n Chris cap, l 02:00: Route: PO, Irvin 00 Drug form: CAP, Q12H, Dosing Weight 95.455, kg, Start date: 04/12/12 21:00:00, Duration: 30 day, Stop date: 05/12/12 9:00:00 chlorhexidi 2011-06 No Saint-Aaro 15 mL, Memoria ne topical 0-18 n Chris Route: l 0.12% 01:00: Swab [place] liquid 00 Mouth, Q4H, Drug form: LIQ, Start date: 04/12/12 20:00:00, Duration: 30 day, Stop date: 05/12/12 16:00:00 chlorhexidi 2011-06 No [facility] 15 mL, Memoria ne topical 0-18 n Chris Route: l 0.12% 01:00: Swab Irvin liquid 00 Mouth, Q4H, Drug form: LIQ, Start date: 04/12/12 20:00:00, Duration: 30 day, Stop date: 05/12/12 16:00:00 Zofran 2011-06 No [facility] 4 mg, 2 Me moria 0-18 n Chris mL, Route: l 00:47: IVP, Drug [place] 00 form: INJ, Q8H, Dosing Weight 95.455, kg, PRN Nausea, Start date: 04/12/12 19:47:00, Duration: 30 day, Stop date: 05/12/12 19:46:00 Zofran 2011-06 No [facility] 4 mg, 2 Me moria 0-18 n Chris mL, Route: l 00:47: IVP, Drug [place] 00 form: INJ, Q8H, Dosing Weight 95.455, kg, PRN Nausea, Start date: 04/12/12 19:47:00, Duration: 30 day, Stop date: 05/12/12 19:46:00 Valium 10 2011-06 No 10 mg, 1 Phong tali mg oral 0-17 tab, PO, l tablet 23:29: TID, PRN, Fly n 12 muscle spasm, Substituti on Allowed, TAB Valium 10 2011-06 No 10 mg, 1 Phong tali mg oral 0-17 tab, PO, l tablet 23:29: TID, PRN, Fly n 12 muscle spasm, Substituti on Allowed, TAB Dexter 2011-06 No 1 tab, PO, Memori a 10/325 oral 0-17 Q4H, PRN, l tablet 23:29: 24 tab, [place] 03 for pain, Substituti on Allowed, Maintenanc e Dexter 2011-06 No 1 tab, PO, Memori a 10/325 oral 0-17 Q4H, PRN, l tablet 23:29: 24 tab, Irvin 03 for pain, Substituti on Allowed, Maintenanc e Dexter 2011-06 No Teresa 1 tab, Memoria 10/325 oral 0-17 Shaun Route: PO, l tablet 22:54: Raymond Drug Form: He rmann 00 TAB, Dosing Weight 95.455, kg, Q4H, PRN as needed for pain, Start date: 04/12/12 17:54:00, Duration: 30 day, Stop date: 05/12/12 17:53:00 Zofran 2011-06 No Teresa 8 mg, 4 Memori a 0-17 Shaun mL, Route: l 22:54: Raymond IV, Drug Fly n 00 form: INJ, Q8H, Dosing Weight 95.455, kg, PRN as needed for nausea/vom iting, Start date: 04/12/12 17:54:00, Duration: 30 day, Stop date: 05/12/12 17:53:00 Dexter 2011-06 No Teresa 1 tab, Memoria 10/325 oral 0-17 Shaun Route: PO, l tablet 22:54: Raymond Drug Form: He rmann 00 TAB, Dosing Weight 95.455, kg, Q4H, PRN as needed for pain, Start date: 04/12/12 17:54:00, Duration: 30 day, Stop date: 05/12/12 17:53:00 Zofran 2011-06 No Teresa 8 mg, 4 Memori a 0-17 Shaun mL, Route: l 22:54: Raymond IV, Drug Fly n 00 form: INJ, Q8H, Dosing Weight 95.455, kg, PRN as needed for nausea/vom iting, Start date: 04/12/12 17:54:00, Duration: 30 day, Stop date: 05/12/12 17:53:00 morphine 2011-06 No [place] 1 mg, 0.5 Memoria Sulfate 0-17 n Chris mL, Route: l 22:53: IV, Drug Bramwell 00 form: INJ, Q2H, Dosing Weight 95.455, kg, PRN as needed for pain, Start date: 04/12/12 17:53:00, Duration: 30 day, Stop date: 05/12/12 17:52:00 morphine 2011-06 No [place] 1 mg, 0.5 Memoria Sulfate 0-17 n Chris mL, Route: l 22:53: IV, Drug Irvin 00 form: INJ, Q2H, Dosing Weight 95.455, kg, PRN as needed for pain, Start date: 04/12/12 17:53:00, Duration: 30 day, Stop date: 05/12/12 17:52:00 Saline 2011- No Teresa 5 ml, Memoria Flush 0.9% 0-17 Shaun Route: l 22:49: Raymond IVP, Drug Luci nn 00 Form: INJ, Dosing Weight 95.455, kg, PRN, PRN Line Flush, Start date: 04/12/12 17:49:00, Duration: 30 day, Stop date: 05/12/12 16:48:00 Saline 2011-06 No Teresa 5 ml, Memoria Flush 0.9% 0-17 Shaun Route: l 22:49: Raymond IVP, Drug Luci nn 00 Form: INJ, Dosing Weight 95.455, kg, PRN, PRN Line Flush, Start date: 04/12/12 17:49:00, Duration: 30 day, Stop date: 05/12/12 16:48:00 vancomycin 2011-06 No Wilmer 1 gm, Phong tali 0-11 Chaitanya Route: l 11:00: Rios IVPB, Drug Fly n 00 form: INJ, [id number], Dosing Weight 97.727, kg, Start date: 04/06/12 6:00:00, Duration: 30 day, Stop date: 05/05/12 18:00:00 vancomycin 2011-06 No Wilmer 1 gm, Phong tali 0-11 Chaitanya Route: l 11:00: Rios IVPB, Drug Fly n 00 form: INJ, [id number], Dosing Weight 97.727, kg, Start date: 04/06/12 6:00:00, Duration: 30 day, Stop date: 05/05/12 18:00:00 Saline 2011-06 No Wilmer 5 ml, Memoria Flush 0.9% 0-11 Chaitanya Route: l 02:00: Gabriel IVP, Drug Irvin 00 Form: INJ, Dosing Weight 97.727, kg, Q12H, Start date: 04/05/12 21:00:00, Duration: 30 day, Stop date: 05/05/12 9:00:00 docusate 2011-06 No Wilmer 100 mg, 1 Me moria sodium 100 0-11 Chaitanya cap, l mg oral 02:00: Gabriel Route: PO, Her leon capsule 00 Drug form: CAP, Q12H, Dosing Weight 97.727, kg, Start date: 04/05/12 21:00:00, Duration: 30 day, Stop date: 05/05/12 9:00:00 famotidine 2011-06 No Wilmer 20 mg, 2 M emoria 0-11 Tavares mL, Route: l 02:00: Gabriel IVP, Drug Bramwell form: INJ, Q12H, Dosing Weight 97.727, kg, Start date: 04/05/12 21:00:00, Duration: 30 day, Stop date: 05/05/12 9:00:00 Saline 2011-06 No Wilmer 5 ml, Memoria Flush 0.9% 0-11 Tavares Route: l 02:00: Gabriel IVP, Drug Bramwell Form: INJ, Dosing Weight 97.727, kg, Q12H, Start date: 04/05/12 21:00:00, Duration: 30 day, Stop date: 05/05/12 9:00:00 docusate 2011-06 No Wilmer 100 mg, 1 Me moria sodium 100 0-11 Chaitanya cap, l mg oral 02:00: Gabriel Route: PO, Her leon capsule 00 Drug form: CAP, Q12H, Dosing Weight 97.727, kg, Start date: 04/05/12 21:00:00, Duration: 30 day, Stop date: 05/05/12 9:00:00 famotidine 2011-06 No Wilmer 20 mg, 2 M emoria 0-11 Tavares mL, Route: l 02:00: Gabriel IVP, Drug Bramwell 00 form: INJ, Q12H, Dosing Weight 97.727, kg, Start date: 04/05/12 21:00:00, Duration: 30 day, Stop date: 05/05/12 9:00:00 morphine 2011-06 No Kip De 2 mg, Mem oria Sulfate 0-10 [place] Route: l 22:04: IVP, ONCE, Bramwell Dosing Weight 97.727, kg, Start date: 04/05/12 17:04:00, Stop date: 04/05/12 17:04:00 morphine 2011-06 No Kip De 2 mg, Mem oria Sulfate 0-10 [place] Route: l 22:04: IVP, ONCE, Irvin 00 Dosing Weight 97.727, kg, Start date: 04/05/12 17:04:00, Stop date: 04/05/12 17:04:00 Valium 2011-06 No Wilmer 10 mg, 1 Memor ia 0-10 Tavares tab, l 19:31: Gabriel Route: PO, Fly n 00 Drug form: TAB, TID, Dosing Weight 97.727, kg, PRN Muscle Spasms, Start date: 04/05/12 14:31:00, Duration: 30 day, Stop date: 05/05/12 14:30:00 Valium 2011-06 No Wilmer 10 mg, 1 Memor ia 0-10 Tavares tab, l 19:31: Gabriel Route: PO, Fly n 00 Drug form: TAB, TID, Dosing Weight 97.727, kg, PRN Muscle Spasms, Start date: 04/05/12 14:31:00, Duration: 30 day, Stop date: 05/05/12 14:30:00 vancomycin 2011-06 No Wilmer 1 gm, Phong tali 0-10 Chaitanya Route: l 19:00: Rios IVPB, Bramwell 00 [id number], Dosing Weight 97.727, kg, For 65 - 90kg, Start date: 04/05/12 14:00:00, Duration: 30 day, Stop date: 05/04/12 14:00:00 cefepime 2011-06 No Wilmer 1 gm, Memori a 0-10 Chaitanya Route: l 19:00: Rios IVPB, Drug Fly n 00 form: INJ, [id number], Dosing Weight 97.727, kg, (CrCl >/= 50 ml/min), Start date: 04/05/12 14:00:00, Duration: 30 day, Stop date: 05/05/12 6:00:00 vancomycin 2011-06 No Wilmer 1 gm, Phong tali 0-10 Chaitanya Route: l 19:00: Rios IVPB, Bramwell 00 [id number], Dosing Weight 97.727, kg, For 65 - 90kg, Start date: 04/05/12 14:00:00, Duration: 30 day, Stop date: 05/04/12 14:00:00 cefepime 2011-06 No Wilmer 1 gm, Memori a 0-10 Chaitanya Route: l 19:00: Rios IVPB, Drug Fly n 00 form: INJ, [id number], Dosing Weight 97.727, kg, (CrCl >/= 50 ml/min), Start date: 04/05/12 14:00:00, Duration: 30 day, Stop date: 05/05/12 6:00:00 Saline 2011-06 No Wilmer 5 ml, Memoria Flush 0.9% 0-10 Tavares Route: l 18:37: Gabriel IVP, Drug Irvin 00 Form: INJ, Dosing Weight 97.727, kg, PRN, PRN Line Flush, Start date: 04/05/12 13:37:00, Duration: 30 day, Stop date: 05/05/12 12:36:00 ondansetron 2011-06 No Wilmer 4 mg, 2 M emoria 0-10 Tavares mL, Route: l 18:37: Gabriel IVP, Drug Irvin 00 form: INJ, Q8H, Dosing Weight 97.727, kg, PRN Nausea & Vomiting, Start date: 04/05/12 13:37:00, Duration: 30 day, Stop date: 05/05/12 13:36:00 vancomycin 2011-06 No Wilmer 2 gm, Phong tali + Sodium 0-10 Tavares Route: l Chloride 18:37: Gabriel IVPB, Irvin 0.9% IV 500 00 ONCE, mL Dosing Weight 97.727, kg, For 70 - 90kg., Start date: 04/05/12 13:37:00, Stop date: 04/05/12 13:37:00 labetalol 2011-06 No Wilmer 10 mg, 2 Me moria 0-10 Tavares mL, Route: l 18:37: Gabriel IVP, Drug Bramwell 00 form: INJ, Q15Min, Dosing Weight 97.727, kg, PRN Hypertensi on, Start date: 04/05/12 13:37:00, Duration: 3 doses or times, Stop date: 04/15/12 0:00:00 morphine 2011-06 No Wilmer 2 mg, 1 Phong tali Sulfate 0-10 Tavares mL, Route: l 18:37: Gabriel IVP, Drug Bramwell 00 form: INJ, Q1H, Dosing Weight 97.727, kg, PRN Pain Score 7-10, Start date: 04/05/12 13:37:00, Duration: 30 day, Stop date: 05/05/12 12:36:00 Saline 2011-06 No Wilmer 5 ml, Memoria Flush 0.9% 0-10 Tavares Route: l 18:37: Gabriel IVP, Drug Irvin 00 Form: INJ, Dosing Weight 97.727, kg, PRN, PRN Line Flush, Start date: 04/05/12 13:37:00, Duration: 30 day, Stop date: 05/05/12 12:36:00 ondansetron 2011-06 No Wilmer 4 mg, 2 M emoria 0-10 Tavares mL, Route: l 18:37: Gabriel IVP, Drug Irvin 00 form: INJ, Q8H, Dosing Weight 97.727, kg, PRN Nausea & Vomiting, Start date: 04/05/12 13:37:00, Duration: 30 day, Stop date: 05/05/12 13:36:00 vancomycin 2011-06 No Wilmer 2 gm, Phong tali + Sodium 0-10 Tavares Route: l Chloride 18:37: Gabriel IVPB, Bramwell 0.9% IV 500 00 ONCE, mL Dosing Weight 97.727, kg, For 70 - 90kg., Start date: 04/05/12 13:37:00, Stop date: 04/05/12 13:37:00 labetalol 2011-06 No Wilmer 10 mg, 2 Me moria 0-10 Tavares mL, Route: l 18:37: Gabriel IVP, Drug Irvin 00 form: INJ, Q15Min, Dosing Weight 97.727, kg, PRN Hypertensi on, Start date: 04/05/12 13:37:00, Duration: 3 doses or times, Stop date: 04/15/12 0:00:00 morphine 2011-06 No Wilmer 2 mg, 1 Phong tali Sulfate 0-10 Tavares mL, Route: l 18:37: Gabriel IVP, Drug Irvin 00 form: INJ, Q1H, Dosing Weight 97.727, kg, PRN Pain Score 7-10, Start date: 04/05/12 13:37:00, Duration: 30 day, Stop date: 05/05/12 12:36:00 lidocaine 2011-06 No Wilmer 20 mL, Phong tali 1% 0-10 Tavares Route: l injectable 18:36: Gabriel SUB-Q, Herm janine solution 00 Drug Form: INJ, Dosing Weight 97.727, kg, ONCE, Start date: 04/05/12 13:36:00, Stop date: 04/05/12 13:36:00 lidocaine 2011- No Wilmer 20 mL, Phong tali 1% 0-10 Tavares Route: l injectable 18:36: Rios SUB-Q, Herm janine solution 00 Drug Form: INJ, Dosing Weight 97.727, kg, ONCE, Start date: 04/05/12 13:36:00, Stop date: 04/05/12 13:36:00 dexamethaso 2011-06 No Mike 1 mg, 1 Me moria ne 0-03 Neil tab, l 23:00: Abdunnur Route: PO, Her leon 00 Drug form: TAB, Q12H, Dosing Weight 96.364, kg, Start date: 03/29/12 18:00:00, Duration: 2 doses or times, Stop date: 03/30/12 6:00:00 dexamethaso 2011-06 No Mike 1 mg, 1 Me moria ne 0-03 Neil tab, l 23:00: Abdunnur Route: PO, Her leon 00 Drug form: TAB, Q12H, Dosing Weight 96.364, kg, Start date: 03/29/12 18:00:00, Duration: 2 doses or times, Stop date: 03/30/12 6:00:00 Valium 10 2011-06 Yes Mike 10 mg, 1 Mem oria mg oral 0-03 Neil tab, PO, l tablet 11:35: Abdunnur TID, PRN, He rmann 48 60 tab, muscle spasm, Substituti on Allowed, TAB Valium 10 2011-06 Yes Mike 10 mg, 1 Mem oria mg oral 0-03 Neil tab, PO, l tablet 11:35: Abdunnur TID, PRN, He rmann 48 60 tab, muscle spasm, Substituti on Allowed, TAB magnesium 2011-06 Yes Mike 300 ml, Phong tali citrate 0-03 Neil Route: PO, l 11:06: Abdunnur Drug Form: Her leno 00 LIQ, Dosing Weight 96.364, kg, ONCE, Start date: 03/29/12 6:06:00, Stop date: 03/29/12 6:06:00 magnesium 2011-06 Yes Mike 300 ml, Phong tali citrate 0-03 Neil Route: PO, l 11:06: Abdunnur Drug Form: Her leon 00 LIQ, Dosing Weight 96.364, kg, ONCE, Start date: 03/29/12 6:06:00, Stop date: 03/29/12 6:06:00 Toradol 2011-06 No Mike 10 mg, 1 Me moria mg oral 0-03 Neil tab, l tablet 11:00: Abdunnur Route: PO, H ermann 00 Drug form: TAB, Q6H, Dosing Weight 96.364, kg, Start date: 03/29/12 6:00:00, Duration: 4 day, Stop date: 04/02/12 0:00:00 Toradol 10 2011-06 No Mike 10 mg, 1 Me moria mg oral 0-03 Neil tab, l tablet 11:00: Abdunnur Route: PO, H ermann 00 Drug form: TAB, Q6H, Dosing Weight 96.364, kg, Start date: 03/29/12 6:00:00, Duration: 4 day, Stop date: 04/02/12 0:00:00 Dilaudid 2011-06 No Mike 1 mg, 0.5 Mem oria 0-03 Neil mL, Route: l 10:56: Abdunnur IV, Drug Luci nn 00 form: INJ, ONCE, Dosing Weight 96.364, kg, Priority: STAT, Start date: 03/29/12 5:56:00, Stop date: 03/29/12 5:56:00 Dilaudid 2011-06 No Mike 1 mg, 0.5 Mem oria 0-03 Neil mL, Route: l 10:56: Abdunnur IV, Drug Luci nn 00 form: INJ, ONCE, Dosing Weight 96.364, kg, Priority: STAT, Start date: 03/29/12 5:56:00, Stop date: 03/29/12 5:56:00 heparin 2011-06 No Mike 5,000 Memoria 0-02 Neil unit, 1 l 21:00: Abdunnur mL, Route: Her leon 00 SUB-Q, Drug form: INJ, Q8H, Dosing Weight 96.364, kg, Start date: 03/28/12 16:00:00, Duration: 30 day, Stop date: 04/27/12 8:00:00 heparin 2011-06 No Mike 5,000 Memoria 0-02 Neil unit, 1 l 21:00: Abdunnur mL, Route: Her leon 00 SUB-Q, Drug form: INJ, Q8H, Dosing Weight 96.364, kg, Start date: 03/28/12 16:00:00, Duration: 30 day, Stop date: 04/27/12 8:00:00 dexamethaso 2011-06 No Mike 2 mg, 1 Me moria ne 0-02 Neil tab, l 17:00: Abdunnur Route: PO, Her leon 00 Drug form: TAB, Q6H, Dosing Weight 96.364, kg, Start date: 03/28/12 12:00:00, Duration: 4 doses or times, Stop date: 03/29/12 6:00:00 dexamethaso 2011-06 No Mike 2 mg, 1 Me moria ne 0-02 Neil tab, l 17:00: Abdunnur Route: PO, Her leon 00 Drug form: TAB, Q6H, Dosing Weight 96.364, kg, Start date: 03/28/12 12:00:00, Duration: 4 doses or times, Stop date: 03/29/12 6:00:00 influenza 2011-06 No SYSTEM 0.5 ml, Mem oria virus 0-02 SYSTEM Route: IM, l vaccine, 14:00: Drug Form: Her leon inactivated 00 INJ, Start date: 03/28/12 9:00:00, Stop date: 03/28/12 9:00:00 influenza 2011-06 No SYSTEM 0.5 ml, Mem oria virus 0-02 SYSTEM Route: IM, l vaccine, 14:00: Drug Form: Her leon inactivated 00 INJ, Start date: 03/28/12 9:00:00, Stop date: 03/28/12 9:00:00 docusate 2011-06 Yes Mike 100 mg, 0, Me moria sodium 100 0-02 Neil PO, BID, l mg oral 10:42: Abdunnur 20 cap, Her leon capsule 06 Substituti on Allowed docusate 2011-06 Yes Mike 100 mg, 0, Me moria sodium 100 0-02 Neil PO, BID, l mg oral 10:42: Abdunnur 20 cap, Her leon capsule 06 Substituti on Allowed Dexter 2011-06 Yes Mike 1 tab, PO, Memor ia 10/325 oral 0-02 Neil Q4H, PRN, l tablet 10:42: Abdunnur 30 tab, 2, H ermann 03 2, as needed for pain, Substituti on Allowed, Maintenanc e, TAB Dexter 2011-06 Yes Mike 1 tab, PO, Memor ia 10/325 oral 0-02 Neil Q4H, PRN, l tablet 10:42: Abdunnur 30 tab, 2, H ermann 03 2, as needed for pain, Substituti on Allowed, Maintenanc e, TAB labetalol 2011-06 No Kip 20 mg, 4 Me moria 0-01 Demetrius mL, Route: l 21:23: Jesus IVP, Drug Her leon 00 form: INJ, Q10Min, Dosing Weight 96.364, kg, PRN Other -See Comment, Start date: 03/27/12 16:23:00, Duration: 30 day, Stop date: 04/26/12 16:22:00 labetalol 2011-06 No Kip 20 mg, 4 Me moria 0-01 Demetrius mL, Route: l 21:23: Jesus IVP, Drug Her leon 00 form: INJ, Q10Min, Dosing Weight 96.364, kg, PRN Other -See Comment, Start date: 03/27/12 16:23:00, Duration: 30 day, Stop date: 04/26/12 16:22:00 NS 1,000 mL 2011-06 No Mike 1,000 mL, Memoria 0-01 Neil Rate: 75 l 20:21: Abdunnur ml/hr, Bram[place] 00 Infuse over: 13.3 hr, Route: IV, kg, Total Volume: 1,000, Start date: 03/27/12 15:21:00, Duration: 30 day, Stop date: 04/26/12 15:20:00 NS 1,000 mL 2011-06 No Mike 1,000 mL, Memoria 0-01 Neil Rate: 75 l 20:21: Abdunnur ml/hr, Bram[place] 00 Infuse over: 13.3 hr, Route: IV, kg, Total Volume: 1,000, Start date: 03/27/12 15:21:00, Duration: 30 day, Stop date: 04/26/12 15:20:00 hydrALAZINE 2011-06 No Kip 10 mg, Me moria 0-01 Demetrius Route: PO, l 20:11: Jesus Drug form: He rmann 00 TAB, Q6H, Dosing Weight 96.364, kg, PRN, Start date: 03/27/12 15:11:00, Duration: 30 day, Stop date: 04/26/12 15:10:00, SBP>150, HR<60 hydrALAZINE 2011-06 No Kip 10 mg, Me moria 0-01 Demetrius Route: PO, l 20:11: Jesus Drug form: He rmann 00 TAB, Q6H, Dosing Weight 96.364, kg, PRN, Start date: 03/27/12 15:11:00, Duration: 30 day, Stop date: 04/26/12 15:10:00, SBP>150, HR<60 labetalol 2011-06 No Kip 19.2728 Mem oria 0-01 Demetrius mg, Route: l 20:10: Jesus IVP, Drug Her leon 00 form: INJ, Q10Min, Dosing Weight 96.364, kg, PRN Other -See Comment, Start date: 03/27/12 15:10:00, Duration: 30 day, Stop date: 04/26/12 15:09:00 labetalol 2011-06 No Kip 19.2728 Mem oria 0-01 Demetrius mg, Route: l 20:10: Jesus IVP, Drug Her leon 00 form: INJ, Q10Min, Dosing Weight 96.364, kg, PRN Other -See Comment, Start date: 03/27/12 15:10:00, Duration: 30 day, Stop date: 04/26/12 15:09:00 dexamethaso 2011-06 No Mike 4 mg, 1 Me moria ne 0-01 Neil tab, l 17:00: Abdunnur Route: PO, Her leon 00 Drug form: TAB, Q6H, Dosing Weight 96.364, kg, Start date: 03/27/12 12:00:00, Duration: 4 doses or times, Stop date: 03/28/12 6:00:00 dexamethaso 2011-06 No Mike 4 mg, 1 Me moria ne 0-01 Neil tab, l 17:00: Abdunnur Route: PO, Drug form: TAB, Q6H, Dosing Weight 96.364, kg, Start date: 03/27/12 12:00:00, Duration: 4 doses or times, Stop date: 03/28/12 6:00:00 hydromorpho 2011-06 No Marcella 0.5 mg, Memoria ne 0-01 F Gomez 0.25 mL, l 16:05: Route: Irvin IVP, Drug form: INJ, Q5Min, Dosing Weight 96.364, kg, PRN Pain Score 4-6, Start date: 03/27/12 11:05:00, Duration: 5 doses or times, Stop date: 03/28/12 0:00:00 flumazenil 2011-06 No Marcella 0.2 mg, 2 Memoria 0-01 F Gomez mL, Route: l 16:05: IVP, Drug form: INJ, PRN, Dosing Weight 96.364, kg, PRN Benzodiaze pine Reversal, Initial dose, Start date: 03/27/12 11:05:00, Duration: 30 day, Stop date: 04/26/12 11:04:00 naloxone 2011-06 No Marcella 0.04 mg, Memoria 0-01 F Gomez 0.1 mL, l 16:05: Route: Irvin 00 IVP, Drug form: INJ, Q2MIN, Dosing Weight 96.364, kg, PRN Narcotic Reversal, Start date: 03/27/12 11:05:00, Duration: 8 doses or times, Stop date: 03/28/12 0:00:00 ondansetron 2011-06 No Marcella 4 mg, 2 Memoria 0-01 F Gomez mL, Route: l 16:05: IVP, Drug form: INJ, ONCE, Dosing Weight 96.364, kg, PRN Nausea & Vomiting, Start date: 03/27/12 11:05:00 hydromorpho 2011-06 No Marcella 0.5 mg, Memoria ne 0-01 F Gomez 0.25 mL, l 16:05: Route: Irvin IVP, Drug form: INJ, Q5Min, Dosing Weight 96.364, kg, PRN Pain Score 4-6, Start date: 03/27/12 11:05:00, Duration: 5 doses or times, Stop date: 03/28/12 0:00:00 flumazenil 2011- No Marcella 0.2 mg, 2 Memoria 0-01 F Gomez mL, Route: l 16:05: IVP, Drug Bram[place] 00 form: INJ, PRN, Dosing Weight 96.364, kg, PRN Benzodiaze pine Reversal, Initial dose, Start date: 03/27/12 11:05:00, Duration: 30 day, Stop date: 04/26/12 11:04:00 naloxone 2011-06 No Marcella 0.04 mg, Memoria 0-01 F Gomez 0.1 mL, l 16:05: Route: Irvin 00 IVP, Drug form: INJ, Q2MIN, Dosing Weight 96.364, kg, PRN Narcotic Reversal, Start date: 03/27/12 11:05:00, Duration: 8 doses or times, Stop date: 03/28/12 0:00:00 ondansetron 2011-06 No Marcella 4 mg, 2 Memoria 0-01 F Gomez mL, Route: l 16:05: IVP, Drug Bramwell 00 form: INJ, ONCE, Dosing Weight 96.364, kg, PRN Nausea & Vomiting, Start date: 03/27/12 11:05:00 Saline 2011-06 No Mike 5 ml, Memoria Flush 0.9% 0-01 Neil Route: l 14:00: Abdunnur IVP, Drug Herm janine 00 Form: INJ, Dosing Weight 96.364, kg, Q12H, Start date: 03/27/12 9:00:00, Duration: 30 day, Stop date: 04/25/12 21:00:00 docusate 2011-06 No Mike 100 mg, 1 Mem oria sodium 100 0-01 Neil cap, l mg oral 14:00: Abdunnur Route: PO, Irvin capsule 00 Drug form: CAP, Q12H, Dosing Weight 96.364, kg, Start date: 03/27/12 9:00:00, Duration: 30 day, Stop date: 04/25/12 21:00:00 senna 2011-06 No Mike 8.6 mg, 1 Memori a 0-01 Neil tab, l 14:00: Abdunnur Route: PO, Her leon 00 Drug Form: TAB, Dosing Weight 96.364, kg, Q12H, Start date: 03/27/12 9:00:00, Duration: 30 day, Stop date: 04/25/12 21:00:00 Saline 2011- No Mike 5 ml, Memoria Flush 0.9% 0-01 Neil Route: l 14:00: Abdunnur IVP, Drug Herm janine 00 Form: INJ, Dosing Weight 96.364, kg, Q12H, Start date: 03/27/12 9:00:00, Duration: 30 day, Stop date: 04/25/12 21:00:00 docusate 2011-06 No Mike 100 mg, 1 Mem oria sodium 100 0-01 Neil cap, l mg oral 14:00: Abdunnur Route: PO, Irvin capsule 00 Drug form: CAP, Q12H, Dosing Weight 96.364, kg, Start date: 03/27/12 9:00:00, Duration: 30 day, Stop date: 04/25/12 21:00:00 senna 2011-06 No Mike 8.6 mg, 1 Memori a 0-01 Neil tab, l 14:00: Abdunnur Route: PO, Her leon 00 Drug Form: TAB, Dosing Weight 96.364, kg, Q12H, Start date: 03/27/12 9:00:00, Duration: 30 day, Stop date: 04/25/12 21:00:00 cefazolin + 2011-06 No Mike 2 gm, Phong tali Sodium 0-01 Neil Route: l Chloride 13:00: Abdunnur IVPB, Drug Bram[place] 0.9% IV 100 00 form: INJ, mL Q8H, Dosing Weight 96.364, kg, Start date: 03/27/12 8:00:00, Duration: 3 doses or times, Stop date: 03/28/12 0:00:00 diazepam 2011- No Mike 5 mg, 1 Memor ia 0-01 Neil tab, l 13:00: Abdunnur Route: PO, Her leon 00 Drug form: TAB, Q8H, Dosing Weight 96.364, kg, Start date: 03/27/12 8:00:00, Duration: 30 day, Stop date: 04/26/12 0:00:00 Percocet 2011-06 No Asma 1 tab, Memoria 5/325 oral 0-01 Zakaria Route: PO, l tablet 13:00: Drug Form: Luci nn 00 TAB, Dosing Weight 96.364, kg, Q4H, Start date: 03/27/12 8:00:00, Duration: 30 day, Stop date: 04/26/12 4:00:00 cefazolin + 2011-06 No Mike 2 gm, Phong tali Sodium 0-01 Neil Route: l Chloride 13:00: Abdunnur IVPB, Drug Bram[place] 0.9% IV 100 00 form: INJ, mL Q8H, Dosing Weight 96.364, kg, Start date: 03/27/12 8:00:00, Duration: 3 doses or times, Stop date: 03/28/12 0:00:00 diazepam 2011-06 No Mike 5 mg, 1 Memor ia 0-01 Neil tab, l 13:00: Abdunnur Route: PO, Her leon 00 Drug form: TAB, Q8H, Dosing Weight 96.364, kg, Start date: 03/27/12 8:00:00, Duration: 30 day, Stop date: 04/26/12 0:00:00 Percocet 2011-06 No Asma 1 tab, Memoria 5/325 oral 0-01 Zakaria Route: PO, l tablet 13:00: Drug Form: Luci nn 00 TAB, Dosing Weight 96.364, kg, Q4H, Start date: 03/27/12 8:00:00, Duration: 30 day, Stop date: 04/26/12 4:00:00 insulin 2011-06 No Mike 7 unit, Memori a regular 0-01 Neil 0.07 mL, l human 11:08: Abdunnur Route: Fly n recombinant 00 SUB-Q, 100 Drug form: units/mL SOLN, PRN, injectable Dosing solution Weight 96.364, kg, PRN Abnormal Lab Result, Start date: 03/27/12 6:08:00, Duration: 30 day, Stop date: 04/26/12 6:07:00 Saline 2011-06 No Mike 5 ml, Memoria Flush 0.9% 0-01 Neil Route: l 11:08: Abdunnur IVP, Drug Herm janine 00 Form: INJ, Dosing Weight 96.364, kg, PRN, PRN Line Flush, Start date: 03/27/12 6:08:00, Duration: 30 day, Stop date: 04/26/12 6:07:00 ondansetron 2011-06 No Mike 4 mg, 2 Me moria 0-01 Neil mL, Route: l 11:08: Abdunnur IVP, Drug Herm janine 00 form: INJ, Q8H, Dosing Weight 96.364, kg, PRN Nausea & Vomiting, Start date: 03/27/12 6:08:00, Duration: 30 day, Stop date: 04/26/12 6:07:00 promethazin 2011-06 No Mike 12.5 mg, M emoria e 0-01 Neil 0.5 mL, l 11:08: Abdunnur Route: Irvin 00 IVPB, Drug form: INJ, Q6H, Dosing Weight 96.364, kg, PRN Nausea & Vomiting, Start date: 03/27/12 6:08:00, Duration: 30 day, Stop date: 04/26/12 6:07:00 Sodium 2011-06 No Mike 1,000 mL, Memor ia Chloride 0-01 Neil Rate: 75 l 0.9% IV 11:08: Abdunnur ml/hr, Herm janine 1,000 mL 00 Infuse over: 13.3 hr, Route: IV, kg, Total Volume: 1,000, Start date: 03/27/12 6:08:00, Duration: 30 day, Stop date: 04/26/12 6:07:00 Pepcid 20 2011-06 No Mike 20 mg, 1 Mem oria mg oral 0-01 Neil tab, l tablet 11:08: Abdunnur Route: PO, H ermann 00 Drug form: TAB, Q12H, Dosing Weight 96.364, kg, Start date: 03/27/12 6:08:00, Duration: 30 day, Stop date: 04/25/12 21:00:00 Dilaudid 2011-06 No Mike 1 mg, 0.5 Mem oria 0-01 Neil mL, Route: l 11:08: Abdunnur IV, Drug Luci nn 00 form: INJ, Q3H, Dosing Weight 96.364, kg, PRN Pain Score 6-10, Start date: 03/27/12 6:08:00, Duration: 30 day, Stop date: 04/26/12 6:07:00 Percocet 2011-06 No Mike 1 tab, Memori a 5/325 oral 0-01 Neil Route: PO, l tablet 11:08: Abdunnur Drug Form: H ermann 00 TAB, Dosing Weight 96.364, kg, Q4H, PRN Pain Score 1-5, Start date: 03/27/12 6:08:00, Duration: 30 day, Stop date: 04/26/12 6:07:00 Dextrose 2011-06 No Mike 6.25 gm, Phong tali 50% Syringe 0-01 Neil 12.5 mL, l 11:08: Abdunnur Route: Irvin 00 IVP, Drug Form: INJ, Dosing Weight 96.364, kg, PRN, PRN Abnormal Lab Result, Start date: 03/27/12 6:08:00, Duration: 30 day, Stop date: 04/26/12 6:07:00 Saline 2011-06 No Mike 5 ml, Memoria Flush 0.9% 0-01 Neil Route: l 11:08: Abdunnur IVP, Drug Herm janine 00 Form: INJ, Dosing Weight 96.364, kg, PRN, PRN Line Flush, Start date: 03/27/12 6:08:00, Duration: 30 day, Stop date: 04/26/12 6:07:00 ondansetron 2011-06 No Mike 4 mg, 2 Me moria 0-01 Neil mL, Route: l 11:08: Abdunnur IVP, Drug Herm janine 00 form: INJ, Q8H, Dosing Weight 96.364, kg, PRN Nausea & Vomiting, Start date: 03/27/12 6:08:00, Duration: 30 day, Stop date: 04/26/12 6:07:00 promethazin 2011-06 No Mike 12.5 mg, M emoria e 0-01 Neil 0.5 mL, l 11:08: Abdunnur Route: Bramwell 00 IVPB, Drug form: INJ, Q6H, Dosing Weight 96.364, kg, PRN Nausea & Vomiting, Start date: 03/27/12 6:08:00, Duration: 30 day, Stop date: 04/26/12 6:07:00 Sodium 2011-06 No Mike 1,000 mL, Memor ia Chloride 0-01 Neil Rate: 75 l 0.9% IV 11:08: Abdunnur ml/hr, Herm janine 1,000 mL 00 Infuse over: 13.3 hr, Route: IV, kg, Total Volume: 1,000, Start date: 03/27/12 6:08:00, Duration: 30 day, Stop date: 04/26/12 6:07:00 Pepcid 20 2011-06 No Mike 20 mg, 1 Mem oria mg oral 0-01 Neil tab, l tablet 11:08: Abdunnur Route: PO, H ermann 00 Drug form: TAB, Q12H, Dosing Weight 96.364, kg, Start date: 03/27/12 6:08:00, Duration: 30 day, Stop date: 04/25/12 21:00:00 Dilaudid 2011-06 No Mike 1 mg, 0.5 Mem oria 0-01 Neil mL, Route: l 11:08: Abdunnur IV, Drug Luci nn 00 form: INJ, Q3H, Dosing Weight 96.364, kg, PRN Pain Score 6-10, Start date: 03/27/12 6:08:00, Duration: 30 day, Stop date: 04/26/12 6:07:00 Percocet 2011-06 No Mike 1 tab, Memori a 5/325 oral 0-01 Neil Route: PO, l tablet 11:08: Abdunnur Drug Form: H ermann 00 TAB, Dosing Weight 96.364, kg, Q4H, PRN Pain Score 1-5, Start date: 03/27/12 6:08:00, Duration: 30 day, Stop date: 04/26/12 6:07:00 Dextrose 2011-06 No Mike 6.25 gm, Phong tali 50% Syringe 0-01 Neil 12.5 mL, l 11:08: Abdunnur Route: Bramwell 00 IVP, Drug Form: INJ, Dosing Weight 96.364, kg, PRN, PRN Abnormal Lab Result, Start date: 03/27/12 6:08:00, Duration: 30 day, Stop date: 04/26/12 6:07:00 insulin 2011-06 No Mike 7 unit, Memori a regular 0-01 Neil 0.07 mL, l human 11:08: Abdunnur Route: Fly n recombinant 00 SUB-Q, 100 Drug form: units/mL SOLN, PRN, injectable Dosing solution Weight 96.364, kg, PRN Abnormal Lab Result, Start date: 03/27/12 6:08:00, Duration: 30 day, Stop date: 04/26/12 6:07:00 Lactated 2011-06 No Mike 1,000 mL, Mem oria Ringers 0-01 Neil Rate: 70 l Injection 10:00: Abdunnur ml/hr, He rmann IV 1,000 mL 00 Infuse over: 14.3 hr, Route: IV, kg, Total Volume: 1,000, Start date: 03/27/12 5:00:00, Duration: 1 doses or times, Stop date: 03/27/12 19:17:00 Lactated 2011-06 No Mike 1,000 mL, Mem oria Ringers 0-01 Neil Rate: 70 l Injection 10:00: Abdunnur ml/hr, He rmann IV 1,000 mL 00 Infuse over: 14.3 hr, Route: IV, kg, Total Volume: 1,000, Start date: 03/27/12 5:00:00, Duration: 1 doses or times, Stop date: 03/27/12 19:17:00 cefazolin 2011-06 No Mike 2 gm, 100 Me moria 0-01 Neil mL, Route: l 06:00: Abdunnur IVPB, Drug Her leon 00 form: INJ, PRE OP, Start date: 03/27/12 1:00:00, Duration: 1 doses or times, Stop date: 03/28/12 0:00:00 cefazolin 2011-06 No Mike 2 gm, 100 Me moria 0-01 Neil mL, Route: l 06:00: Abdunnur IVPB, Drug Her leon 00 form: INJ, PRE OP, Start date: 03/27/12 1:00:00, Duration: 1 doses or times, Stop date: 03/28/12 0:00:00 Vicodin No 1 tab, PO, Phong tali 5/500 oral 9-25 Q4H, PRN, l tablet 19:55: for pain, Fly n 48 Substituti on Allowed, Maintenanc e, TAB Vicodin 2012-0 No 1 tab, PO, Phong tali 5/500 oral 9-25 Q4H, PRN, l tablet 19:55: for pain, Fly n 48 Substituti on Allowed, Maintenanc e, TAB Immunizations Ordered Immunization Filled Immunization Date Status Commen ts Source Name Name influenza virus 2012-03-28 Completed [facility] vaccine, inactivated 12:40:00 Herm janine influenza virus 2012-03-28 Completed [facility] vaccine, inactivated 12:40:00 Herm janine Vital Signs Vital Name Observation Time Observation Value Comments Source Systolic blood 2021-05-19 22:01:00 124 mm[Hg] [facility] Diastolic blood 2021-05-19 22:01:00 71 mm[Hg] [facility] Heart rate 2021-05-19 22:01:00 114 /min [facility] Body temperature 2021-05-19 22:01:00 36.78 Evelyn [facility] Respiratory rate 2021-05-19 22:01:00 18 /min [facility] Oxygen saturation in 2021-05-19 22:01:00 97 /min [facility] Arterial blood by [facility] Pulse oximetry Branch Body weight 2021-05-18 01:41:00 97.523 kg [facility] BMI 2021-05-18 01:41:00 39.32 kg/m2 [facility] Body height 2021-05-17 21:25:00 157.5 cm [facility] Systolic blood 2021-05-17 20:57:00 148 mm[Hg] [facility] Diastolic blood 2021-05-17 20:57:00 93 mm[Hg] [facility] Heart rate 2021-05-17 20:57:00 123 /min [facility] Body temperature 2021-05-17 20:57:00 36.28 Evelyn [facility] Respiratory rate 2021-05-17 20:57:00 32 /min [facility] Body height 2021-05-17 20:57:00 157.5 cm [facility] Body weight 2021-05-17 20:57:00 104.327 kg [facility] [place] [facility] BMI 2021-05-17 20:57:00 42.07 kg/m2 [facility] Oxygen saturation in 2021-05-17 20:57:00 92 /min [facility] Arterial blood by [facility] Pulse oximetry Branch Systolic blood 2020-07-29 20:28:00 132 mm[Hg] [facility]iver [facility] Diastolic blood 2020-07-29 20:28:00 80 mm[Hg] [facility]ive [facility] Heart rate 2020-07-29 20:28:00 100 /min [facility] [place] [facility] Body temperature 2020-07-29 20:28:00 36.17 Evelyn [facility] [place] [facility] Respiratory rate 2020-07-29 20:28:00 22 /min [facility] [place] [facility] Oxygen saturation in 2020-07-29 20:28:00 98 /min [facility] Arterial blood by [facility] Pulse oximetry Branch Body weight 2020-07-29 18:21:00 98.431 kg [facility] BMI 2020-07-29 18:21:00 39.69 kg/m2 [facility] [place] [facility] Systolic blood 2020-07-24 20:27:00 118 mm[Hg] [facility] Diastolic blood 2020-07-24 20:27:00 72 mm[Hg] [facility] Heart rate 2020-07-24 20:27:00 106 /min [facility] Body temperature 2020-07-24 20:27:00 36.72 Evelyn [facility] [place] [facility] Respiratory rate 2020-07-24 20:27:00 26 /min [facility] [place] [facility] Body height 2020-07-24 20:27:00 157.5 cm [facility] Body weight 2020-07-24 20:27:00 98.431 kg [facility] BMI 2020-07-24 20:27:00 39.69 kg/m2 [facility] [place] [facility] Oxygen saturation in 2020-07-24 20:27:00 100 /min University of Arterial blood by [facility] Pulse oximetry Branch Systolic blood 2020-07-05 21:11:00 112 mm[Hg] [facility] [place] [facility] Diastolic blood 2020-07-05 21:11:00 77 mm[Hg] [facility] [place] [facility] Heart rate 2020-07-05 21:11:00 98 /min [facility] [place] [facility] Body temperature 2020-07-05 21:11:00 36.5 Evelyn [facility] [place] [facility] Respiratory rate 2020-07-05 21:11:00 20 /min [facility] [place] [facility] Body height 2020-07-05 21:11:00 157.5 cm [facility] [place] [facility] Body weight 2020-07-05 21:11:00 100.245 kg [facility] [place] [facility] BMI 2020-07-05 21:11:00 40.42 kg/m2 [facility] [place] [facility] Oxygen saturation in 2020-07-05 21:11:00 98 /min [facility] of Arterial blood by [facility] Pulse oximetry Branch Systolic blood 2019-11-12 05:00:00 106 mm[Hg] [facility] [place] [facility] Diastolic blood 2019-11-12 05:00:00 47 mm[Hg] [facility] [place] [facility] Heart rate 2019-11-12 05:00:00 89 /min [facility] [place] [facility] Respiratory rate 2019-11-12 05:00:00 16 /min [facility] [place] [facility] Oxygen saturation in 2019-11-12 05:00:00 96 /min [facility] of Arterial blood by [facility] Pulse oximetry Branch Body weight 2019-11-12 03:24:00 117.935 kg [facility] [place] [facility] BMI 2019-11-12 03:24:00 47.55 kg/m2 [facility] [place] [facility] Systolic blood 2019-11-12 05:00:00 106 mm[Hg] [facility] [place] [facility] Diastolic blood 2019-11-12 05:00:00 47 mm[Hg] [facility] [place] [facility] Heart rate 2019-11-12 05:00:00 89 /min [facility] [place] [facility] Respiratory rate 2019-11-12 05:00:00 16 /min [facility] Oxygen saturation in 2019-11-12 05:00:00 96 /min [facility] Arterial blood by [facility] Pulse oximetry Branch Body weight 2019-11-12 03:24:00 117.935 kg [facility] BMI 2019-11-12 03:24:00 47.55 kg/m2 [facility] Systolic (mm Hg) 2016-11-12 21:42:00 Phong [facility] [place] Diastolic (mm Hg) 2016-11-12 21:42:00 Mem orial [facility] Heart Rate 2016-11-12 21:42:00 [facility] Systolic (mm Hg) 2016-11-12 21:23:00 Phong rial [facility] Diastolic (mm Hg) 2016-11-12 21:23:00 Mem orial [place] Heart Rate 2016-11-12 21:23:00 [facility] Weight 2016-11-12 19:15:00 [facility] Temperature Oral (F) 2016-11-12 19:15:00 98.1 F [facility] Systolic (mm Hg) 2016-11-12 19:15:00 Phong rial [place] Diastolic (mm Hg) 2016-11-12 19:15:00 Mem o[facility] [place] Respitory Rate 2016-11-12 19:15:00 Memori [facility] [place] Heart Rate 2016-11-12 19:15:00 [facility] Respitory Rate 2012-04-20 12:45:00 Memori al [facility] Heart Rate 2012-04-20 12:45:00 [facility] Systolic (mm Hg) 2012-04-20 12:45:00 Phong [facility] [place] Diastolic (mm Hg) 2012-04-20 12:45:00 Mem [facility] [place] Temperature Oral (F) 2012-04-20 12:45:00 98.4 F [facility] Diastolic (mm Hg) 2012-04-20 07:59:00 Mem orial [place] Systolic (mm Hg) 2012-04-20 07:59:00 Phong rial [place] Respitory Rate 2012-04-20 07:59:00 Memori al [facility] Systolic (mm Hg) 2012-04-20 04:32:00 Phong [facility] [place] Respitory Rate 2012-04-20 04:32:00 Memori [facility] [place] Diastolic (mm Hg) 2012-04-20 04:32:00 Mem orial [place] Temperature Oral (F) 2012-04-20 04:32:00 99.5 F [facility] Heart Rate 2012-04-19 21:35:00 [facility] Temperature Oral (F) 2012-04-19 21:35:00 97.1 F [facility] Weight 2012-04-12 22:15:00 [facility] Height 2012-04-12 22:15:00 157.48 cm [facility] Temperature Oral (F) 2012-04-06 12:00:00 97.8 F [facility] Respitory Rate 2012-04-06 12:00:00 Memori [facility] [place] Heart Rate 2012-04-06 12:00:00 [facility] Diastolic (mm Hg) 2012-04-06 12:00:00 Mem orial [place] Systolic (mm Hg) 2012-04-06 12:00:00 Phong rial [place] Heart Rate 2012-04-06 09:51:00 [facility] Diastolic (mm Hg) 2012-04-06 09:51:00 Mem o[facility] [place] Systolic (mm Hg) 2012-04-06 09:51:00 Phong rial [place] Respitory Rate 2012-04-06 09:51:00 Memori al [place] Temperature Oral (F) 2012-04-06 09:51:00 97.8 F [facility] Heart Rate 2012-04-06 04:00:00 [facility] Temperature Oral (F) 2012-04-06 04:00:00 96.9 F [facility] Systolic (mm Hg) 2012-04-06 04:00:00 Phong rial [place] Diastolic (mm Hg) 2012-04-06 04:00:00 Mem orial [place] Respitory Rate 2012-04-06 04:00:00 Memori [facility] [place] Weight 2012-04-05 16:44:00 [facility] Height 2012-04-05 16:44:00 157.48 cm [facility] Diastolic (mm Hg) 2012-03-29 13:22:00 Mem orial [facility] Heart Rate 2012-03-29 13:22:00 [facility] Systolic (mm Hg) 2012-03-29 13:22:00 Phong rial [place] Respitory Rate 2012-03-29 13:22:00 Memori al [place] Temperature Oral (F) 2012-03-29 13:22:00 96.8 F [facility] Temperature Oral (F) 2012-03-29 09:39:00 98.6 F [facility] Respitory Rate 2012-03-29 09:39:00 Memori al [place] Systolic (mm Hg) 2012-03-29 09:39:00 Phong rial [place] Diastolic (mm Hg) 2012-03-29 09:39:00 Mem orial [place] Heart Rate 2012-03-29 09:39:00 [facility] Diastolic (mm Hg) 2012-03-29 05:20:00 Mem o[facility] [place] Systolic (mm Hg) 2012-03-29 05:20:00 Phong rial [place] Temperature Oral (F) 2012-03-29 05:20:00 98.6 F [facility] Respitory Rate 2012-03-29 05:20:00 Memori al [place] Heart Rate 2012-03-29 05:20:00 [facility] Weight 2012-03-22 13:20:00 [facility] Height 2012-03-22 13:20:00 157.48 cm [facility] Procedures Procedure Date / Time Performing Clinician Source Performed BASIC METABOLIC PANEL 2021-05-18 10:46:00 [facility] Torey [facility] (NA, K, CL, CO2, GLUCOSE, Medica l Branch BUN, CREATININE, [place]) CBC WITH DIFF 2021-05-18 10:46:00 [facility] RESPIRATORY PANEL BY PCR 2021-05-18 04:59:[address] [facility] XR CHEST 1 VW 2021-05-17 21:45:56 Paola Crawford [facility] COMP. METABOLIC PANEL 2021-05-17 21:34:00 Paola Crawford [facility] ([id number]) [facility] Branch CBC WITH DIFF 2021-05-17 21:34:00 Paola Crawford [facility] COVID-19 (ID NOW RAPID 2021-05-17 21:34:00 Paola Crawford [facility] TESTING) Medical Branch LAB ONLY COVID 2021-05-17 21:34:00 Paola Crawford [facility] INTERPRETATION Medical Branch CONSENT/REFUSAL FOR 2021-05-17 21:27:54 Doctor [facility] DIAGNOSIS AND TREATMENT [place] [facility] XR CHEST 1 VW 2020-07-24 22:37:10 Renetta Meza [facility] BASIC METABOLIC PANEL 2020-07-24 22:01:00 Renetta Meza [facility] (NA, K, CL, CO2, GLUCOSE, Medica l Branch BUN, CREATININE, CA) CBC WITH DIFF 2020-07-24 22:01:00 Renetta Meza [facility] D-DIMER 2020-07-24 22:01:00 Renetta Meza [facility] ADC,CLC OR LCC ONLY - 2020-07-24 21:55:00 Renetta Meza [facility] INFLUENZA A & B DIRECT Medical [place] ANTIGEN POCT TEST 2020-07-24 21:55:00 Renetta Meza [facility] NOTICE OF PRIVACY 2020-07-24 20:19:40 Doctor Patricia, [facility] PRACTICES [place] [facility] CONSENT/REFUSAL FOR 2020-07-24 20:19:28 Doctor [facility] DIAGNOSIS AND TREATMENT [facility] XR FOOT <3 VW RIGHT 2020-07-05 23:12:53 Amber Zavaleta [facility] Medical Branch XR KNEE 3 VW LEFT 2019-09-13 16:20:00 Mya Syed [facility] XR LUMBAR SPINE 2 VW 2019-09-13 16:20:00 Mya Syed [facility] Medical [place] ASSIGNMENT OF BENEFITS 2019-09-13 15:19:29 Doctor Patricia, [facility] [place] [facility] AGREEMENTS AUTHORIZATIONS 2019-08-22 06:01:00 Doctor Patricia, [facility] AND IRREVOCABLE [place] ASSIGNMENTS (FORM 2000) AGREEMENTS AUTHORIZATIONS 2019-08-07 06:01:00 Doctor Patricia, [facility] AND IRREVOCABLE [place] ASSIGNMENTS (FORM 2001) Cranial decompression [facility] Encounters Start End Encounter Admission Attending Care Care Encounter Source Date/Time Date/Time Type Type Clinicians Facility Department ID 2022-06-15 OD BIJU IVY [id number] Ny moria 09:30:06 00 yaron Bryan 2021-07-28 OD BIJU IVY [id number] Ny moria 20:52:01 00 yaron Bryan 2021-04-23 Emergency [facility] [id number] Univers 21:16:01 ity [facility] 2021-05-17 2021-05-19 Outpatient X [facility] [id number] Univers 15:33:00 17:50:00 CLARITA lowry [facility] 2021-05-17 2021-05-19 Emergency Paola Crawford [facility] 1.2.8 40.114 [id number] Univers 15:33:00 17:50:00 Torey Zapata [id number] ity of Clarita Perez 4.2.7.2.686 [facility] [id number] [facility] [address] [place] 2021-05-17 2021-05-17 Outpatient R ADELIA [facility] [id number] Univers 14:45:00 15:02:52 PAOLA ramos [facility] 2021-05-17 2021-05-17 Nurse Paola Medeiros [facility] 1.2.840 .114 [id number] Univers 14:42:50 15:02:52 Visit Aleena [facility] 350.1.1 3.10 Nay[place] 4.2.7.2.686 Maninder as TUNG?BLEA [phone] [facility] [address] [place] MEDICAL OFFICE BUILDING 2020-09-15 2020-09-15 Patient Parvez [facility] 1.2.840.114 [id number] Univers 00:00:00 00:00:00 Outreach Roberto WILSON [id number] i ty of [facility] [id number] Felix MARQUEZ [id number] [address] 2020-07-29 2020-07-29 Nurse Therapy, [facility] Covid Infusion [facility] 1.2.840.114 [id number] Univers 08:22:15 18:54:25 Visit Drever, Renetta G SPECIALTY [id number] ity [id number] [id number] Ny vianca CRAVEN 0[address] [facility] 2020-07-29 2020-07-29 Outpatient R SUSANA, [facility] [id number] Univers 13:00:00 13:00:00 RENETTA ity [facility] 2020-07-24 2020-07-24 Emergency [facility] [id number] Univers 14:33:00 18:47:00 Renetta Freedton [id number] ity [place] [id number] [facility] 084 Branch 2020-07-24 2020-07-24 Emergency [facility] [id number] Univers 14:33:00 18:47:00 [facility] 2020-07-24 2020-07-24 Orders Doctor MCKEON 1.2.840.114 [id number] Univers 00:00:00 00:00:00 Only Unassigned, DIDIER [id number] ity of [facility] 4.2.7.2.686 Maninder as [phone] [facility] 009 Branch 2020-07-05 2020-07-05 Hospital Bret Zavaleta 1.2.840.114 [id number] Univers 15:51:19 23:59:00 Encounter Amber Diaz Pediatric [id number] ity of [place] [id number] [facility] Primary 808 Branch Care [facility] 2020-07-05 2020-07-05 Outpatient R UNKNOWN, [facility] [id number] Univers 16:15:00 16:15:00 ATTENDING itwally [facility] 2020-07-05 2020-07-05 Urgent Amber Zavaleta 1.2.840.114 [id number] Univers 15:03:33 15:18:33 Care Unknown, Attending Pediatric 350.1.13. 10 ity of [place] [id number] [facility] Primary [address] [place] [address] 2019-11-11 2019-11-12 Emergency Sujata, TRAUMA [id number] 22:23:46 02:31:00 Stephen Thacker CENTER 350.1.13.10 4.2.7.2.686 [id number] 014 2019-11-11 2019-11-12 Emergency Sujata, TRAUMA 1.2.215.938 [id number] Univers 22:23:46 02:31:00 Stephen Thacker CENTER [id number]2.7.[address] [facility] [id number] [address] 2019-09-13 2019-09-13 [facility] Radiology [place] 1.2.840.114 [id number] 10:25:00 23:59:00 Encounter [place] 350.1.13.10 [place] 4.2.7.2.686 [place] [id number] 2019-09-13 2019-09-13 [facility] Radiology [place] 1.2.840.114 [id number] Univers 10:25:00 23:59:00 Encounter [place] 350.1.13.10 ity of [place] 4.2.7.2.686 [facility] [id number] [address] 2019-09-13 2019-09-13 Outpatient R RADIOLOGY [facility] RAD [id number] Univers 10:24:31 10:24:00 ity of [facility] 2019-09-13 2019-09-13 Hospital Radiology [facility] 1.2.840.114 [id number] 10:24:00 10:24:00 Encounter [place] 350.1.13.10 [place] 4.2.7.2.686 [place] [id number] 807 2019-09-13 2019-09-13 [facility] Radiology [place] 1.2.840.114 [id number] Univers 10:24:00 10:24:00 Encounter [place] 350.1.13.10 ity of [place] 4.2.7.2.686 [facility] [id number] [address] 2019-09-13 2019-09-13 Orders Doctor LINDA 1.2.840.114 [id number] 00:00:00 00:00:00 Only Unassigned, DIDIER 350.1.13.10 [facility] 4.2.7.2.686 [id number] 2019-09-13 2019-09-13 Orders Doctor LINDA 1.2.840.114 [id number] Univers 00:00:00 00:00:00 Only Unassigned, DIDIER 350.1.13.10 ity [facility] 4.2.7.2.686 Maninder as [phone] [address] 2019-08-22 2019-08-22 Net Developer With Wcf 2, Adc Lab [facility] 1.2.840.114 [id number] Univers 15:01:15 15:16:15 Visit Anastacio Sibley 350.1.13 .10 it[place] [phone] [facility] 353 [facility] 2019-08-22 2019-08-22 Outpatient R ANASTACIO SIBLEY [facility] [id number] Univers 15:15:00 15:15:00 ANASTACIO SIBLEY itwally [facility] 2019-08-22 2019-08-22 Orders Doctor MCKEON 1.2.840.114 [id number] 00:00:00 00:00:00 Only Unassigned, DIDIER 350.1.13.10 [facility] 4.2.7.2.686 [id number] 2019-08-22 2019-08-22 Orders Doctor MCKEON 1.2.840.114 [id number] Univers 00:00:00 00:00:00 Only Unassigned, DIDIER 350.1.13.10 ity of [facility] 4.2.7.2.686 Maninder as [phone] [address] 2019-08-20 2019-08-20 Telephone Toñito [facility] 1.2.840.114 [id number] Univers 00:00:00 00:00:00 Anastacio Saldana 350.1.13.10 [place] [id number] [facility] 092 [facility] 2019-08-20 2019-08-20 Telephone Toñito [facility] 1.2.840.114 [id number] 00:00:00 00:00:00 Anastacio Zachary Sald[place] 350.1.13.10 [place] 4.2.7.2.686 Professio [id number] [facility] [address] [place] [address] 2019-08-08 2019-08-08 Telephone Toñito [facility] 1.2.840.114 [id number] Univers 00:00:00 00:00:00 Anastacio Zachary Shana 350.1.13.10 [place] [phone] [facility] 092 [facility] 2019-08-07 2019-08-07 Net Developer With Wcf 2, Adc Lab [facility] 1.2.840.114 [id number] Univers 11:16:18 11:31:18 Visit Toñito Anastacio Saldana 350.1.13 .10 ity of [place] 4[place]2.7.2.[place] [id number] [address] 2019-08-07 2019-08-07 Telephone Toñito [facility] 1.2.840.114 [id number] Univers 00:00:00 00:00:00 Anastacio Zachary Saldana 350.1.13.10 [place].2.[place] [id number] [facility] 092 [facility] 2019-08-07 2019-08-07 Orders Doctor LINDA 1.2.840.114 [id number] Univers 00:00:00 00:00:00 Only Unassigned, DIDIER 350.1.13.10 ity of [place] [facility] 4.2.7.2.686 Maninder as [phone] [address] 2019-08-06 2019-08-06 Net Developer With Wcf 2, Adc Lab [facility] 1.2.840.114 [id number] Univers 10:13:46 10:28:46 Visit ToñitoAnastacio 350.1.13 .10 [place]2.[place].2.[place] [phone] [address] 2019-08-06 2019-08-06 Letter Toñito [facility] 1.2.840.114 [id number] [facility] 00:00:00 00:00:00 (Out) Anastacio Saldana 350.1.13.10 [facility] [place] 4.2.7.2.686 Felix Arndtlaura [phone] Ny dical [facility] 092 [facility] 2016-11-12 2016-11-12 Emergency nullFlavo [facility] [id number] Memoria 18:43:00 21:48:00 [place] 00 [facility] 2016-11-12 2016-11-12 [facility] [id number] Memoria 18:43:00 21:48:00 [place] 00 [facility] 2016-11-12 2016-11-12 Outpatient Marcel[facility] [id number] 13:43:00 16:48:00 Lauren 00 Tasneem Ruiz 2012-04-12 2012-04-20 Inpatient nullFlavo [facility] [id number] Memoria 17:50:00 11:11:00 r Medical 02 [facility] 2012-04-12 2012-04-20 Inpatient nullFlavo [facility] [place] [id number] Memoria 17:50:00 11:11:00 r Medical 02 [facility] 2012-04-05 2012-04-06 OU nullFlavo [facility] [place] [id number] Memoria 13:36:00 10:45:00 r Medical 01 [facility] 2012-04-05 2012-04-06 OU nullFlavo [facility] [place] [id number] Memoria 13:36:00 10:45:00 r Medical 01 [facility] 2012-03-27 2012-03-29 Inpatient nullFlavo [facility] [place] [id number] Memoria 05:18:00 11:00:00 r Medical 00 [facility] 2012-03-27 2012-03-29 Inpatient nullFlavo [facility] [place] [id number] Memoria 05:18:00 11:00:00 r Medical 00 [facility] Results Test Description Test Time Test Comments Results Result Comments Source Basic Metabolic Panel (NA, K, CL, CO2, GLUCOSE, BUN, 2021-04 11:15:54 CREATININE, CA) Test Item Value Reference Range Interpretation Comme nts NA (test code = 7536105331) 137 mmol/L 135-145 K (test code = 0333390642) 4.4 mmol/L 3.5-5.0 CL (test code = 4031782323) 104 mmol/L 98-108 CO2 TOTAL (test code = 2926719130) 24 mmol/L 23-31 AGAP (test code = 4123862902) 2-16 BUN (test code = 8248315822) 8 mg/dL 7-23 GLUCOSE (test code = 2671837153) 184 mg/dL 70-110 H CREATININE (test code = 0.70 mg/dL 0.50-1.04 6779773603) CALCIUM (test code = 8201514318) 8.9 mg/dL 8.6-10.6 eGFR (test code = 3143099194) mL/min/1.73m2 GRAYSON (test code = GRAYSON) Association of Glomerular Filtration Rate (GFR) and Staging of Kidney Disease* + +-------- + ------+| GFR (mL/min/1.73 m2) ?| With Kidney Damage ?| ?Without Kidney Damage+ +-- + +| ?>90 ?| ?Stage one ?| ? Normal ?+ +------- + -------+| ?60-89 ?| ?Stage two ?| ? Decreased GFR ? + +-------- + ------+| ?30-59 ?| ?Stage three ?| ? Stage three ? + +-------- + ------+| ?15-29 ?| ?Stage four ? | ? Stage four ?+ +------- + -------+| ?<15 (or dialysis) ? ?| ?Stage five ? | ? Stage five ?+ +------- + -------+ *Each stage assumes the associated GFR level has been in effect for at least three months. ?Stages 1 to 5, with or without kidney disease, indicate chronic kidney disease. Notes: Determination of stages one and two (with eGFR >59mL/min/1.73 m2) requires estimation of kidney damage for at least three months as defined by structural or functional abnormalities of the kidney, manifested by either:Pathological abnormalities or Markers of kidney damage (including abnormalities in the composition of the blood or urine or abnormalities in imaging tests). Lab Interpretation (test code = Abnormal 44001-9) [facility] with [id number] 10:58:09 Test Item Value Reference Range Interpretation Comments WBC (test code = See_Comment [Automated 6690-2) message] The system which generated this result transmit toño reference range : 4.30 - 11.10 10*3/?L. The reference range was not used to interpret this result as normal/abnormal . RBC (test code = See_Comment [Automated 789-8) message] The system which generated this result transmit toño reference range : 3.93 - 5.25 10*6/?L. The reference range was not used to interpret this result as normal/abnormal . HGB (test code = 11.0 g/dL 11.6-15.0 L 718-7) HCT (test code = 35.7 % 35.7-45.2 4544-3) MCV (test code = 76.9 fL 80.6-95.5 L 787-2) MCH (test code = 23.7 pg 25.9-32.8 L 785-6) MCHC (test code = 30.8 g/dL 31.6-35.1 L 786-4) RDW-SD (test code = 44.3 fL 39.0-49.9 72584-3) RDW-CV (test code = 15.9 % 12.0-15.5 H 788-0) PLT (test code = See_Comment [Automated 777-3) message] The system which generated this result transmit toño reference range : 166 - 358 10*3/ ?L. The reference range was not u sed to interpret th is result as normal/abnormal . MPV (test code = 10.1 fL 9.5-12.9 95623-7) NRBC/100 WBC (test See_Comment [Automat ed code = 0539189140) message] The system which generated this result transmit toño reference range : 0.0 - 10.0 /100 WBCs. The reference range was not used to interpret this result as normal/abnormal . NRBC x10^3 (test code <0.01 See_Comment [Auto mated = 2739817259) message] The system which generated this result transmit toño reference range : 10*3/?L. The reference range was not used to interpret this result as normal/abnormal . GRAN MAT (NEUT) % 95.3 % (test code = 770-8) IMM GRAN % (test code 0.30 % = 9186666728) LYMPH % (test code = 3.5 % 736-9) MONO % (test code = 0.7 % 5905-5) EOS % (test code = 0.0 % 713-8) BASO % (test code = 0.2 % 706-2) GRAN MAT x10^3(ANC) 10.39 10*3/uL 1.88-7.09 H (test code = 5558845046) IMM GRAN x10^3 (test 0.03 10*3/uL 0.00-0.06 code = 2141846653) LYMPH x10^3 (test code 0.38 10*3/uL 1.32-3.29 L = 731-0) MONO x10^3 (test code 0.08 10*3/uL 0.33-0.92 L = 742-7) EOS x10^3 (test code = <0.03 0.03-0.39 L 711-2) BASO x10^3 (test code <0.03 0.01-0.07 = 704-7) Lab Interpretation Abnormal (test code = 11558-3) [facility]. METABOLIC PANEL (36670)2021-05-17 21:58:35 Test Item Value Reference Range Interpretation Comments NA (test code = 137 mmol/L 135-145 7187994093) K (test code = 3.9 mmol/L 3.5-5.0 0621066097) CL (test code = 103 mmol/L 98-108 6786616486) CO2 TOTAL (test code = 29 mmol/L 23-31 7664109024) AGAP (test code = 2-16 1566247294) BUN (test code = 7 mg/dL 7-23 7288185612) GLUCOSE (test code = 139 mg/dL 70-110 H 2415512620) CREATININE (test code = 0.82 mg/dL 0.50-1.04 6687411216) TOTAL BILI (test code = 0.3 mg/dL 0.1-1.9 5013623470) CALCIUM (test code = 9.0 mg/dL 8.6-10.6 6208368733) T PROTEIN (test code = 6.7 g/dL 6.3-8.2 8304805525) ALBUMIN (test code = 3.8 g/dL 3.5-5.0 2865510754) ALK PHOS (test code = 68 U/L 34-122 3282481292) ALTv (test code = 17 U/L 5-35 1742-6) AST(SGOT) (test code = 22 U/L 13-40 4032807747) eGFR (test code = mL/min/1.73m2 3465875424) GRAYSON (test code = GRAYSON) Association of Glomerular Filtration Rate (GFR) and Staging of Kidney Disease* + --+ --+ ------+| GFR (mL/min/1.73 m2) ?| With Kidney Damage ?| ?Without Kidney Damage+ --------+ --------+ +| ?>90 ?| ?Stage one ?| ? Normal ?+ ---+ ---+ -------+| ?60-89 ?| ?Stage two ?| ? Decreased GFR ? + --+ --+ ------+| ?30-59 ?| ?Stage three ?| ? Stage three ? + --+ --+ ------+| ?15-29 ?| ?Stage four ? | ? Stage four ?+ ---+ ---+ -------+| ?<15 (or dialysis) ? ?| ?Stage five ? | ? Stage five ?+ ---+ ---+ -------+ *Each stage assumes the associated GFR level has been in effect for at least three months. ?Stages 1 to 5, with or without kidney disease, indicate chronic kidney disease. Notes: Determination of stages one and two (with eGFR >59mL/min/1.73 m2) requires estimation of kidney damage for at least three months as defined by structural or functional abnormalities of the kidney, manifested by either:Pathological abnormalities or Markers of kidney damage (including abnormalities in the composition of the blood or urine or abnormalities in imaging tests). Lab Interpretation Abnormal (test code = 57471-2) [facility] WITH [id number] 21:43:54 Test Item Value Reference Range Interpretation Comments WBC (test code = See_Comment [Automated 9690-2) message] The sy stem which generated this result transmitted reference range : 4.30 - 11.10 10*3/?L. The reference range was not used to interpret this result as normal/abnormal . RBC (test code = See_Comment [Automated 789-8) message] The sy stem which generated this result transmitted reference range : 3.93 - 5.25 10*6/?L. The reference range was not used to interpret this result as normal/abnormal . HGB (test code = 11.1 g/dL 11.6-15.0 L 718-7) HCT (test code = 36.5 % 35.7-45.2 4544-3) MCV (test code = 77.3 fL 80.6-95.5 L 787-2) MCH (test code = 23.5 pg 25.9-32.8 L 785-6) MCHC (test code = 30.4 g/dL 31.6-35.1 L 786-4) RDW-SD (test code = 44.0 fL 39.0-49.9 65733-5) RDW-CV (test code = 15.8 % 12.0-15.5 H 788-0) PLT (test code = See_Comment [Automated 777-3) message] The sy stem which generated this result transmitted reference range : 166 - 358 10*3/ ?L. The reference r nan was not used to interpret this result as normal/abnormal . MPV (test code = 9.7 fL 9.5-12.9 76563-6) NRBC/100 WBC (test See_Comment [Automat ed code = 3881779303) message] The system which generated this result transmitted reference range : 0.0 - 10.0 /100 WBCs. The refer ence range was not u sed to interpret th is result as normal/abnormal . NRBC x10^3 (test code <0.01 See_Comment [Auto mated = 1219509960) message] The s ystem which generated this result transmitted reference range : 10*3/?L. The reference range was not used to interpret this result as normal/abnormal . GRAN MAT (NEUT) % 64.1 % (test code = 770-8) IMM GRAN % (test code 0.30 % = 2664629557) LYMPH % (test code = 21.7 % 736-9) MONO % (test code = 6.5 % 5905-5) EOS % (test code = 6.8 % 713-8) BASO % (test code = 0.6 % 706-2) GRAN MAT x10^3(ANC) 4.61 10*3/uL 1.88-7.09 (test code = 4431300192) IMM GRAN x10^3 (test <0.03 0.00-0.06 code = 5152820889) LYMPH x10^3 (test code 1.56 10*3/uL 1.32-3.29 = 731-0) MONO x10^3 (test code 0.47 10*3/uL 0.33-0.92 = 742-7) EOS x10^3 (test code = 0.49 10*3/uL 0.03-0.39 H 711-2) BASO x10^3 (test code 0.04 10*3/uL 0.01-0.07 = 704-7) Lab Interpretation Abnormal (test code = 47263-7) [facility] [id number] 00:07:25Impression: No acute abnormalities evident. RL: 460 End of Report Ordering Physician: TORIBIO MEZA History: ?Short of breath Technique: Chest, single view Comparison: None Findings: ? The lungs are clear. No pleural effusions are evident. Heart size isnormal. The superior mediastinal silhouette is unremarkable for age. Noacute bony abnormalities are evident. [facility], Radiant Results Inft User - 07/24/2020 6:08 PM CSTOrdering Physician:RENETTA MEZAHistory: Short of breathTechnique: Chest, single viewComparison: NoneFindings: The lungs are clear. No pleural effusions are evident. Heart size isnormal. The superior mediastinal silhouette is unremarkable for age. Noacute bony abnormalities are evident.IMPRESSIONImpression:No acute abnormalities evident.RL: 460End of Report [facility]-KFBPU1881-47-03 22:48:00 Test Item Value Reference Interpretation Comments Range D-DIMER (test code = <0.27 See_Comment [Autom ated 0778667432) message] The system which generated this result transmitted reference range : <0.41 ?g/mL (FEU). The reference range was not used to interpret this result as normal/abnormal . GRAYSON (test code = This test may be GRAYSON) used in conjunction with a clinical pretest probability (PTP) assessment model to exclude venous thromboembolism (VTE) in patients suspected of deep venous thrombosis (DVT) and pulmonary embolism (PE) A D-Dimer value less than 0.50 ?g/ml (FEU) has a negative predicative value of 96 to 100% (95% CI)and 97 to 100% (95% CI) as an aid in the diagnosis of deep vein thrombosis (DVT) and pulmonary embolism when there is low or moderate pretest probability of PE or DVT. D-Dimer values are expressed in initial fibrinogen equivalent units (FEU)" The assay results should be used with other information, including the clinical context, in forming a diagnosis. Lab Interpretation Normal (test code = 10756-3) [facility] (NA, K, CL, CO2, GLUCOSE, BUN, CREATININE, CA)2020-07-24 22:44:00 Test Item Value Reference Range Interpretation Comments NA (test code = 136 mmol/L 135-145 2181969742) K (test code = 4.2 mmol/L 3.5-5 6359731460) CL (test code = 100 mmol/L 98-108 4327092176) CO2 TOTAL (test code = 29 mmol/L 23-31 3418094292) AGAP (test code = 2-16 4493470029) BUN (test code = 12 mg/dL 7-23 4294954170) GLUCOSE (test code = 89 mg/dL 70-110 1956136771) CREATININE (test code 0.84 mg/dL 0.5-1.04 = 8069930624) CALCIUM (test code = 9.2 mg/dL 8.6-10.6 6590123689) eGFR Calculation mL/min/1.73m2 (Non-) (test code = 1663301465) eGFR Calculation mL/min/1.73m2 () (test code = 8020415000) GRAYSON (test code = GRAYSON) Association of Glomerular Filtration Rate (GFR) and Staging of Kidney Disease* + -+ + ---+| GFR (mL/min/1.73 m2) ?| With Kidney Damage ?| ?Without Kidney Damage+ -------+ ------+ ---------+| ?>90 ?| ?Stage one ?| ? Normal ?+ --+ -+ ----+| ?60-89 ?| ?Stage two ?| ? Decreased GFR ? + -+ + ---+| ?30-59 ?| ?Stage three ?| ? Stage three ? + -+ + ---+| ?15-29 ?| ?Stage four ? | ? Stage four ?+ --+ -+ ----+| ?<15 (or dialysis) ? ?| ?Stage five ? | ? Stage five ?+ --+ -+ ----+ *Each stage assumes the associated GFR level has been in effect for at least three months. ?Stages 1 to 5, with or without kidney disease, indicate chronic kidney disease. Notes: Determination of stages one and two (with eGFR >59mL/min/1.73 m2) requires estimation of kidney damage for at least three months as defined by structural or functional abnormalities of the kidney, manifested by either:Pathological abnormalities or Markers of kidney damage (including abnormalities in the composition of the blood or urine or abnormalities in imaging tests). [facility] OR [facility] ONLY - INFLUENZA A & B DIRECT [id number] 22:41:00 Test Item Value Reference Range Interpretation Comments Influenza A (test code = 51021-5) Negative Negative Influenza B (test code = 17480-0) Negative Negative Lab Interpretation (test code = Normal 72607-5) [facility] WITH [id number] 22:28:00 Test Item Value Reference Range Interpretation Comments WBC (test code = See_Comment [Automated 7924-2) message] The sy stem which generated this result transmitted reference range : 4.30 - 11.10 10*3/?L. The reference range was not used to interpret this result as normal/abnormal . RBC (test code = See_Comment [Automated 692-8) message] The sy stem which generated this result transmitted reference range : 3.93 - 5.25 10*6/?L. The reference range was not used to interpret this result as normal/abnormal . HGB (test code = 11.2 g/dL 11.6-15 L 718-7) HCT (test code = 36.9 % 35.7-45.2 4544-3) MCV (test code = 79.0 fL 80.6-95.5 L 787-2) MCH (test code = 24.0 pg 25.9-32.8 L 785-6) MCHC (test code = 30.4 g/dL 31.6-35.1 L 786-4) RDW-SD (test code = 45.0 fL 39-49.9 89252-7) RDW-CV (test code = 15.9 % 12-15.5 H 788-0) PLT (test code = See_Comment [Automated 777-3) message] The sy stem which generated this result transmitted reference range : 166 - 358 10*3/ ?L. The reference r nan was not used to interpret this result as normal/abnormal . MPV (test code = 10.5 fL 9.5-12.9 97726-5) NRBC/100 WBC (test See_Comment [Automat ed code = 4867649331) message] The system which generated this result transmitted reference range : 0.0 - 10.0 /100 WBCs. The refer ence range was not u sed to interpret th is result as normal/abnormal . NRBC x10^3 (test code <0.01 See_Comment [Auto mated = 6661443561) message] The s ystem which generated this result transmitted reference range : 10*3/?L. The reference range was not used to interpret this result as normal/abnormal . GRAN MAT (NEUT) % 52.0 % (test code = 770-8) IMM GRAN % (test code 0.30 % = 9990106405) LYMPH % (test code = 29.1 % 736-9) MONO % (test code = 8.0 % 5905-5) EOS % (test code = 9.6 % 713-8) BASO % (test code = 1.0 % 706-2) GRAN MAT x10^3(ANC) 2.97 10*3/uL 1.88-7.09 (test code = 3131254453) IMM GRAN x10^3 (test <0.03 0-0.06 code = 7685304524) LYMPH x10^3 (test code 1.67 10*3/uL 1.32-3.29 = 731-0) MONO x10^3 (test code 0.46 10*3/uL 0.33-0.92 = 742-7) EOS x10^3 (test code = 0.55 10*3/uL 0.03-0.39 H 711-2) BASO x10^3 (test code 0.06 10*3/uL 0.01-0.07 = 704-7) Lab Interpretation Abnormal (test code = 47319-6) [id number] 21:55:00 Test Item Value Reference Range Interpretation Comments POCT PREG (test code = 1605) negative On board controls acceptable with present C Line (test code = 3574) POCT PREG LOT # (test code = 3575) [id number] POCT PREG TEST DATE (test 02/24/22 code = 3576) Lab Interpretation (test code = Normal 22194-3) [facility] VW [id number] 16:39:25HISTORY: ?Pain. FINDINGS: AP, lateral, oblique views of left knee showed no acute fractureor dislocation. No significant changes of arthritis or aggressive bonelesions seen. No significant knee joint effusion. CONCLUSIONS: Normal study. [facility], Radiant Results Inft User - 09/13/2019 11:40 AM CDTHISTORY:Pain.FINDINGS: AP, lateral, oblique views of left knee showed no acute fractureor dislocation. No significant changes of arthritis or aggressive bonelesions seen. No significant knee joint effusion.CONCLUSIONS: Normal study.[facility] LUM[facility] 2 EH2006-09-23 16:38:38HISTORY: ?Low back pain. FINDINGS: AP and lateral views of the lumbar spines partially sacralizedL5.4 lumbar vertebral bodies showed no compression fracture ordislocation. No significant narrowing of the disc spaces or degenerativechanges detected. CONCLUSIONS: No fracture. [facility], Radiant Results InftUser - 09/13/2019 11:39 AM CDTHISTORY: Low back pain.FINDINGS: AP and lateral views of the lumbar spines partially sacralizedL5. 4 lumbar vertebral bodies showed no compression fracture ordislocation. No significant narrowing of the disc spaces or degenerativechanges detected.CONCLUSIONS: No fracture.[facility]2017-05-19 19:39:00 Test Item Value Reference Range Interpretation Comments Globulin (test code = Globulin) 4.2 2.7-4.2 [place] [id number] 19:39:00 Test Item Value Reference Range Interpretation Comments A/G Ratio (test code = A/G Ratio) 0.9 0.7-1.6 [place] [address]-05-19 19:39:00 Test Item Value Reference Range Interpretation Comments B/C Ratio (test code = B/C Ratio) 10 6-25 [place] [address]-05-19 19:39:00 Test Item Value Reference Range Interpretation Comments AGAP (test code = AGAP) 12.7 10.0-20.0 [place] 148647-05-19 19:39:00 Test Item Value Reference Range Interpretation Comments AST (test code = AST) 12 See_Comment [Auto mated message] The system which ge nerated this result transmit toño reference range : <=37. The reference range was not used to interpr et this result as alistair l/abnormal. [facility]2017-05-19 19:39:00 Test Item Value Reference Range Interpretation Comments Alk Phos (test code = Alk Phos) 94 39-136 [facility]2017-05-19 19:39:00 Test Item Value Reference Range Interpretation Comments Bili Total (test code = Bili Total) 0.3 0.2-1.3 [place] 148647-05-19 19:39:00 Test Item Value Reference Range Interpretation Comments eGFR (test code = eGFR) 72 [place] 148647-05-19 19:39:00 Test Item Value Reference Range Interpretation Comments Albumin Lvl (test code = Albumin Lvl) 3.6 3.5-5.0 [place] 148647-05-19 19:39:00 Test Item Value Reference Range Interpretation Comments ALT (test code = ALT) 28 See_Comment [Auto mated message] The system which ge nerated this result transmit toño reference range : <=65. The reference range was not used to interpr et this result as alistair l/abnormal. [facility]2017-05-19 19:39:00 Test Item Value Reference Range Interpretation Comments CO2 (test code = CO2) 29 24-32 [place] 148647-05-19 19:39:00 Test Item Value Reference Range Interpretation Comments Sodium Lvl (test code = Sodium Lvl) 140 135-145 [facility]2017-05-19 19:39:00 Test Item Value Reference Range Interpretation Comments Chloride Lvl (test code = Chloride Lvl) 102 95-109 [facility]2017-05-19 19:39:00 Test Item Value Reference Range Interpretation Comments Potassium Lvl (test code = Potassium 3.7 3.5-5.1 Lvl) [place] 148647-05-19 19:39:00 Test Item Value Reference Range Interpretation Comments BUN (test code = BUN) 10 7-22 [facility]2017-05-19 19:39:00 Test Item Value Reference Range Interpretation Comments Creatinine Lvl (test code = Creatinine 1.02 0.50-1.40 Lvl) [facility]2017-05-19 19:39:00 Test Item Value Reference Range Interpretation Comments Calcium Lvl (test code = Calcium Lvl) 9.2 8.5-10.5 [facility]2017-05-19 19:39:00 Test Item Value Reference Range Interpretation Comments Total Protein (test code = Total 7.8 6.4-8.4 Protein) [facility]2017-05-19 19:39:00 Test Item Value Reference Range Interpretation Comments Glucose Lvl (test code = Glucose Lvl) 137 70-99 [facility]XMKMXNSG4906[facility]77-31 19:39:00 Test Item Value Reference Range Interpretation Comments MCV (test code = MCV) 70.6 80.0-98.0 [facility]OulrjuwWWQSZTDPZB5800-02-93 19:39:00 Test Item Value Reference Range Interpretation Comments MCH (test code = MCH) 22.0 pg 27.0-31.0 [facility]EnapbqqYBVLTJYFRL3904-22-40 19:39:00 Test Item Value Reference Range Interpretation Comments Hct (test code = Hct) 37.5 36.0-48.0 [facility] HospitalIbrsoutRRYMLPSZJB2185-91-03 19:39:00 Test Item Value Reference Range Interpretation Comments MCHC (test code = MCHC) 31.2 32.0-36.0 [facility] HospitalIraorquDHBYNLWHRN3933-35-98 19:39:00 Test Item Value Reference Range Interpretation Comments RDW (test code = RDW) 16.6 11.5-14.5 [facility] HospitalTlohqdiCHSEZDWTCG3012-06-46 19:39:00 Test Item Value Reference Range Interpretation Comments RBC (test code = RBC) 5.31 4.20-5.40 [facility] HospitalXzcxcoxKPJWBWJSAF4900-21-62 19:39:00 Test Item Value Reference Range Interpretation Comments Hgb (test code = Hgb) 11.7 12.0-16.0 [facility] HospitalKvxpucfCDPVHZVDGK6485-65-57 19:39:00 Test Item Value Reference Range Interpretation Comments WBC (test code = WBC) 5.7 3.7-10.4 [facility] HospitalTrwupkeBHATIGPOIJ6208-06-47 19:39:00 Test Item Value Reference Range Interpretation Comments Platelet (test code = Platelet) 361 133-450 [facility] HospitalXlepwuyWWGDMXCNPV8563-40-16 19:39:00 Test Item Value Reference Range Interpretation Comments MPV (test code = MPV) 8.2 7.4-10.4 [facility] HospitalQzomcbgAVPFUGOBOI3249-63-00 19:39:00 Test Item Value Reference Range Interpretation Comments Monocytes # (test code 0.3 See_Comment [Aut omated message] The = Monocytes #) system which generated this result tra nsmitted reference range : <=0.8. The reference r nan was not used to int erpret this result as normal/abnormal . [facility] HospitalOjwjqsvVVNWZAMHUF6543-84-60 19:39:00 Test Item Value Reference Range Interpretation Comments Eosinophils # (test code 0.4 See_Comment [A utomated message] The = Eosinophils #) system whic h generated this result tra nsmitted reference range : <=0.5. The reference r nan was not used to int erpret this result as normal/abnormal . [facility] HospitalCtatjoySTGVNKMFHI1317-05-79 19:39:00 Test Item Value Reference Range Interpretation Comments Basophils # (test code 0.1 See_Comment [Aut omated message] The = Basophils #) system which generated this result tra nsmitted reference range : <=0.2. The reference r nan was not used to int erpret this result as normal/abnormal . [facility] HospitalUuhsohiKRVBBTQJBL4049-31-77 19:39:00 Test Item Value Reference Range Interpretation Comments Microcyte (test code = 2+ *ABN*(11/12/16 Microcyte) 2:39 PM) [facility] HospitalDxeloehDKCVNKGSJF7539-17-29 19:39:00 Test Item Value Reference Range Interpretation Comments Eosinophils (test code = 6.3 See_Comment [A utomated message] The Eosinophils) system which ge nerated this result tra nsmitted reference range : <=4.0. The reference r nan was not used to int erpret this result as normal/abnormal . [facility] HospitalGgkviqqTDMNRBPZKI6240-82-81 19:39:00 Test Item Value Reference Range Interpretation Comments Monocytes (test code = Monocytes) 6.0 2.0-12.0 [facility] HospitalKfbifuiJBSQRKBDFZ7348-68-09 19:39:00 Test Item Value Reference Range Interpretation Comments Basophils (test code = 1.3 See_Comment [Aut omated message] The Basophils) system which ge nerated this result tra nsmitted reference range : <=1.0. The reference r nan was not used to int erpret this result as normal/abnormal . [facility] HospitalSwewxxsDTKJVYTUAB9274-32-86 19:39:00 Test Item Value Reference Range Interpretation Comments Lymphocytes (test code = Lymphocytes) 30.6 20.0-40.0 [facility] HospitalLtowqeiGQOOQWSHVU6642-02-84 19:39:00 Test Item Value Reference Range Interpretation Comments Segs-Bands # (test code = Segs-Bands #) 3.2 1.5-8.1 [facility] HospitalFcnvhijTSCTHABIUM5267-73-83 19:39:00 Test Item Value Reference Range Interpretation Comments Lymphocytes # (test code = Lymphocytes 1.7 1.0-5.5 #) [facility] HospitalJdcfjvsIYJGGDKDJR0186-25-47 19:39:00 Test Item Value Reference Range Interpretation Comments Segs (test code = Segs) 55.8 45.0-75.0 [facility] YRZQE7911-19-56 19:39:00 Test Item Value Reference Range Interpretation Comments UA Mucus (test code = UA Mucus) Few /LPF [facility] AND [id number] 19:39:00 Test Item Value Reference Range Interpretation Comments UA Bacteria (test code = UA Occasional /HPF Bacteria) [facility] AND UVLXL9120-35-26 19:39:00 Test Item Value Reference Range Interpretation Comments UA RBC (test code = 3 See_Comment [Automa toño message] The UA RBC) system which ge nerated this result transmit toño reference range : <=2. The reference range was not used to interpr et this result as alistair l/abnormal. [facility] AND [id number] 19:39:00 Test Item Value Reference Range Interpretation Comments UA WBC (test code = 1 See_Comment [Automa toño message] The UA WBC) system which ge nerated this result transmit toño reference range : <=5. The reference range was not used to interpr et this result as alistair l/abnormal. [facility] AND CUCWO8561-72-01 19:39:00 Test Item Value Reference Range Interpretation Comments UA Urobilinogen (test code = UA <=1.0 mg/dL 0.1-1.0 Urobilinogen) [facility] AND [id number] 19:39:00 Test Item Value Reference Range Interpretation Comments UA Protein (test code = UA Negative mg/dL Protein) [facility] AND [id number] 19:39:00 Test Item Value Reference Range Interpretation Comments UA pH (test code = UA pH) 5.0 5.0-8.0 [facility] AND [id number] 19:39:00 Test Item Value Reference Range Interpretation Comments UA Spec Grav (test code = UA Spec Grav) 1.028 [facility] AND [id number] 19:39:00 Test Item Value Reference Range Interpretation Comments UA Color (test code = Yellow *NA*(11/12/16 UA Color) 2:39 PM) [facility] AND [id number] 19:39:00 Test Item Value Reference Range Interpretation Comments UA Turbidity (test code Slight *ABN*(11/12/16 = UA Turbidity) 2:39 PM) [facility] AND [id number] 19:39:00 Test Item Value Reference Range Interpretation Comments UA Sq Epi (test code = UA Sq Epi) Many /LPF [facility] AND [id number] 19:39:00 Test Item Value Reference Range Interpretation Comments UA Leuk Est (test Negative (11/12/16 2:39 code = UA Leuk Est) PM) [facility] AND [id number] 19:39:00 Test Item Value Reference Range Interpretation Comments UA Nitrite (test code Negative (11/12/16 2:39 = UA Nitrite) PM) [facility] AND [id number] 19:39:00 Test Item Value Reference Range Interpretation Comments UA Blood (test code = Negative (11/12/16 2:39 UA Blood) PM) [facility] AND [id number] 19:39:00 Test Item Value Reference Range Interpretation Comments UA Ketones (test code = UA Negative mg/dL Ketones) [facility] AND [id number] 19:39:00 Test Item Value Reference Range Interpretation Comments UA Glucose (test code = UA Negative mg/dL Glucose) [facility] AND [id number] 19:39:00 Test Item Value Reference Range Interpretation Comments UA Bili (test code = Negative *NA*(11/12/16 UA Bili) 2:39 PM) [facility]2017-05-19 19:39:00 Test Item Value Reference Range Interpretation Comments Globulin (test code = Globulin) 4.2 2.7-4.2 [facility]2017-05-19 19:39:00 Test Item Value Reference Range Interpretation Comments A/G Ratio (test code = A/G Ratio) 0.9 0.7-1.6 [facility]2017-05-19 19:39:00 Test Item Value Reference Range Interpretation Comments B/C Ratio (test code = B/C Ratio) 10 6-25 [facility]2017-05-19 19:39:00 Test Item Value Reference Range Interpretation Comments AGAP (test code = AGAP) 12.7 10.0-20.0 [facility]2017-05-19 19:39:00 Test Item Value Reference Range Interpretation Comments AST (test code = AST) 12 See_Comment [Auto mated message] The system which ge nerated this result transmit toño reference range : <=37. The reference range was not used to interpr et this result as alistair l/abnormal. [facility]2017-05-19 19:39:00 Test Item Value Reference Range Interpretation Comments Alk Phos (test code = Alk Phos) 94 39-136 [facility]2017-05-19 19:39:00 Test Item Value Reference Range Interpretation Comments Bili Total (test code = Bili Total) 0.3 0.2-1.3 [facility]2017-05-19 19:39:00 Test Item Value Reference Range Interpretation Comments eGFR (test code = eGFR) 72 [facility]2017-05-19 19:39:00 Test Item Value Reference Range Interpretation Comments Albumin Lvl (test code = Albumin Lvl) 3.6 3.5-5.0 [facility]2017-05-19 19:39:00 Test Item Value Reference Range Interpretation Comments ALT (test code = ALT) 28 See_Comment [Auto mated message] The system which ge nerated this result transmit toño reference range : <=65. The reference range was not used to interpr et this result as alistair l/abnormal. [facility]2017-05-19 19:39:00 Test Item Value Reference Range Interpretation Comments CO2 (test code = CO2) 29 24-32 [facility]2017-05-19 19:39:00 Test Item Value Reference Range Interpretation Comments Sodium Lvl (test code = Sodium Lvl) 140 135-145 [facility]2017-05-19 19:39:00 Test Item Value Reference Range Interpretation Comments Chloride Lvl (test code = Chloride Lvl) 102 95-109 [facility]2017-05-19 19:39:00 Test Item Value Reference Range Interpretation Comments Potassium Lvl (test code = Potassium 3.7 3.5-5.1 Lvl) [facility]2017-05-19 19:39:00 Test Item Value Reference Range Interpretation Comments BUN (test code = BUN) 10 7-22 [facility]2017-05-19 19:39:00 Test Item Value Reference Range Interpretation Comments Creatinine Lvl (test code = Creatinine 1.02 0.50-1.40 Lvl) [facility]2017-05-19 19:39:00 Test Item Value Reference Range Interpretation Comments Calcium Lvl (test code = Calcium Lvl) 9.2 8.5-10.5 [facility]2017-05-19 19:39:00 Test Item Value Reference Range Interpretation Comments Total Protein (test code = Total 7.8 6.4-8.4 Protein) [facility]2017-05-19 19:39:00 Test Item Value Reference Range Interpretation Comments Glucose Lvl (test code = Glucose Lvl) 137 70-99 [id number] 19:39:00 Test Item Value Reference Range Interpretation Comments MCV (test code = MCV) 70.6 80.0-98.0 [facility]ShgqkcoBWAVCVBTMD8864-07-10 19:39:00 Test Item Value Reference Range Interpretation Comments MCH (test code = MCH) 22.0 pg 27.0-31.0 [facility] HospitalFwqqdelBFKBDCBEAI7838-14-55 19:39:00 Test Item Value Reference Range Interpretation Comments Hct (test code = Hct) 37.5 36.0-48.0 [id number] 19:39:00 Test Item Value Reference Range Interpretation Comments MCHC (test code = MCHC) 31.2 32.0-36.0 [id number] 19:39:00 Test Item Value Reference Range Interpretation Comments RDW (test code = RDW) 16.6 11.5-14.5 [facility] Ho[id number] 19:39:00 Test Item Value Reference Range Interpretation Comments RBC (test code = RBC) 5.31 4.20-5.40 [facility] Hos[id number] 19:39:00 Test Item Value Reference Range Interpretation Comments Hgb (test code = Hgb) 11.7 12.0-16.0 [facility] Hospit[id number] 19:39:00 Test Item Value Reference Range Interpretation Comments WBC (test code = WBC) 5.7 3.7-10.4 [facility] Ho[id number] 19:39:00 Test Item Value Reference Range Interpretation Comments Platelet (test code = Platelet) 361 133-450 [facility] HospitalDysfllbFMDQHHNGFU4084-76-04 19:39:00 Test Item Value Reference Range Interpretation Comments MPV (test code = MPV) 8.2 7.4-10.4 [facility] Ho[id number] 19:39:00 Test Item Value Reference Range Interpretation Comments Monocytes # (test code 0.3 See_Comment [Aut omated message] The = Monocytes #) system which generated this result tra nsmitted reference range : <=0.8. The reference r nan was not used to int erpret this result as normal/abnormal . [facility] Ho[id number] 19:39:00 Test Item Value Reference Range Interpretation Comments Eosinophils # (test code 0.4 See_Comment [A utomated message] The = Eosinophils #) system whic h generated this result tra nsmitted reference range : <=0.5. The reference r nan was not used to int erpret this result as normal/abnormal . [facility] H[id number] 19:39:00 Test Item Value Reference Range Interpretation Comments Basophils # (test code 0.1 See_Comment [Aut omated message] The = Basophils #) system which generated this result tra nsmitted reference range : <=0.2. The reference r nan was not used to int erpret this result as normal/abnormal . [facility] HospitalZubxkbcVPKCTHLWUY8338-07-75 19:39:00 Test Item Value Reference Range Interpretation Comments Microcyte (test code = 2+ *ABN*(11/12/16 Microcyte) 2:39 PM) [facility] H[id number] 19:39:00 Test Item Value Reference Range Interpretation Comments Eosinophils (test code = 6.3 See_Comment [A utomated message] The Eosinophils) system which ge nerated this result tra nsmitted reference range : <=4.0. The reference r nan was not used to int erpret this result as normal/abnormal . [facility] HospitalRqyxrxbEKOGOKLCVO0627-05-52 19:39:00 Test Item Value Reference Range Interpretation Comments Monocytes (test code = Monocytes) 6.0 2.0-12.0 [facility] Hos[id number] 19:39:00 Test Item Value Reference Range Interpretation Comments Basophils (test code = 1.3 See_Comment [Aut omated message] The Basophils) system which ge nerated this result tra nsmitted reference range : <=1.0. The reference r nan was not used to int erpret this result as normal/abnormal . [facility] Hos[id number] 19:39:00 Test Item Value Reference Range Interpretation Comments Lymphocytes (test code = Lymphocytes) 30.6 20.0-40.0 [facility] H[id number] 19:39:00 Test Item Value Reference Range Interpretation Comments Segs-Bands # (test code = Segs-Bands #) 3.2 1.5-8.1 [facility] Ho[id number] 19:39:00 Test Item Value Reference Range Interpretation Comments Lymphocytes # (test code = Lymphocytes 1.7 1.0-5.5 #) [facility] HospitalSxpwxloVGAWWRDPUM9513-34-10 19:39:00 Test Item Value Reference Range Interpretation Comments Segs (test code = Segs) 55.8 45.0-75.0 [facility] AND [id number] 19:39:00 Test Item Value Reference Range Interpretation Comments UA Mucus (test code = UA Mucus) Few /LPF [facility] AND [id number] 19:39:00 Test Item Value Reference Range Interpretation Comments UA Bacteria (test code = UA Occasional /HPF Bacteria) [facility] AND [id number] 19:39:00 Test Item Value Reference Range Interpretation Comments UA RBC (test code = 3 See_Comment [Automa toño message] The UA RBC) system which ge nerated this result transmit toño reference range : <=2. The reference range was not used to interpr et this result as alistair l/abnormal. [facility] AND [id number] 19:39:00 Test Item Value Reference Range Interpretation Comments UA WBC (test code = 1 See_Comment [Automa toño message] The UA WBC) system which ge nerated this result transmit toño reference range : <=5. The reference range was not used to interpr et this result as alistair l/abnormal. [facility] AND [id number] 19:39:00 Test Item Value Reference Range Interpretation Comments UA Urobilinogen (test code = UA <=1.0 mg/dL 0.1-1.0 Urobilinogen) [facility] AND [id number] 19:39:00 Test Item Value Reference Range Interpretation Comments UA Protein (test code = UA Negative mg/dL Protein) [facility] AND [id number] 19:39:00 Test Item Value Reference Range Interpretation Comments UA pH (test code = UA pH) 5.0 5.0-8.0 [facility] AND [id number] 19:39:00 Test Item Value Reference Range Interpretation Comments UA Spec Grav (test code = UA Spec Grav) 1.028 [facility] AND [id number] 19:39:00 Test Item Value Reference Range Interpretation Comments UA Color (test code = Yellow *NA*(11/12/16 UA Color) 2:39 PM) [facility] AND [id number] 19:39:00 Test Item Value Reference Range Interpretation Comments UA Turbidity (test code Slight *ABN*(11/12/16 = UA Turbidity) 2:39 PM) [facility] AND [id number] 19:39:00 Test Item Value Reference Range Interpretation Comments UA Sq Epi (test code = UA Sq Epi) Many /LPF [facility] AND [id number] 19:39:00 Test Item Value Reference Range Interpretation Comments UA Leuk Est (test Negative (11/12/16 2:39 code = UA Leuk Est) PM) [facility] AND [id number] 19:39:00 Test Item Value Reference Range Interpretation Comments UA Nitrite (test code Negative (11/12/16 2:39 = UA Nitrite) PM) [facility] AND [id number] 19:39:00 Test Item Value Reference Range Interpretation Comments UA Blood (test code = Negative (11/12/16 2:39 UA Blood) PM) [facility] AND [id number] 19:39:00 Test Item Value Reference Range Interpretation Comments UA Ketones (test code = UA Negative mg/dL Ketones) [facility] AND [id number] 19:39:00 Test Item Value Reference Range Interpretation Comments UA Glucose (test code = UA Negative mg/dL Glucose) [facility] AND [id number] 19:39:00 Test Item Value Reference Range Interpretation Comments UA Bili (test code = Negative *NA*(11/12/16 UA Bili) 2:39 PM) [facility] [id number] 11:29:00 Test Item Value Reference Range Interpretation Comments Gluc POC Lifscn (test code = Gluc POC 111 70-99 H Lifscn) [facility] GLUCOSE [id number] 11:29:00 Test Item Value Reference Range Interpretation Comments Gluc POC Lifscn (test code = Gluc POC 111 70-99 H Lifscn) [facility] GLUCOSE [id number] 02:06:00 Test Item Value Reference Range Interpretation Comments Gluc POC Lifscn (test code = Gluc POC 139 70-99 H Lifscn) [facility] GLUCOSE [id number] 02:06:00 Test Item Value Reference Range Interpretation Comments Gluc POC Lifscn (test code = Gluc POC 139 70-99 H Lifscn) [facility] GLUCOSE [id number] 20:18:00 Test Item Value Reference Range Interpretation Comments Comment1 (test code = Comment1) Notify RN/MD [facility] GLUCOSE [id number] 20:18:00 Test Item Value Reference Range Interpretation Comments Gluc POC Lifscn (test code = Gluc POC 135 70-99 H Lifscn) [facility] GLUCOSE [id number] 20:18:00 Test Item Value Reference Range Interpretation Comments Comment1 (test code = Comment1) Notify RN/MD [facility] GLUCOSE [id number] 20:18:00 Test Item Value Reference Range Interpretation Comments Gluc POC Lifscn (test code = Gluc POC 135 70-99 H Lifscn) [facility] GLUCOSE [id number] 17:44:00 Test Item Value Reference Range Interpretation Comments Comment1 (test code = Comment1) Notify RN/MD [facility] GLUCOSE [id number] 17:44:00 Test Item Value Reference Range Interpretation Comments Comment1 (test code = Comment1) [id number] 17:30:00 Test Item Value Reference Range Interpretation Comments Monocyte CSF (test code = Monocyte CSF) 7 15-[address] [facility] [id number] 17:30:00 Test Item Value Reference Range Interpretation Comments Eos CSF (test code = Eos CSF) [address] [facility] [id number] 17:30:00 Test Item Value Reference Range Interpretation Comments RBC CSF (test code = 44 See_Comment H [Autom ated message] The RBC CSF) system which ge nerated this result transmit toño reference range : <=0. The reference range was not used to interpr et this result as alistair l/abnormal. [id number] 17:30:00 Test Item Value Reference Range Interpretation Comments Lymph CSF (test code = Lymph CSF) 9 40-80 L [id number] 17:30:00 Test Item Value Reference Range Interpretation Comments Segs CSF (test code = 79 See_Comment H [Auto mated message] The Segs CSF) system which ge nerated this result transmit toño reference range : <=6. The reference range was not used to interpr et this result as alistair l/abnormal. [id number] 17:30:00 Test Item Value Reference Range Interpretation Comments Tube Num CSF (test xxxxxxx (04/19/2012 N code = Tube Num CSF) 12:30:00) [facility] [id number] 17:30:00 Test Item Value Reference Range Interpretation Comments Supernat CSF (test Colorless (04/19/2012 N code = Supernat CSF) 12:30:00) [facility] [id number] 17:30:00 Test Item Value Reference Range Interpretation Comments Color CSF (test code Colorless (04/19/2012 N = Color CSF) 12:30:00) [facility] [id number] 17:30:00 Test Item Value Reference Range Interpretation Comments Clarity CSF (test code Slight A = Clarity CSF) *ABN*(04/19/2012 12:30:00) [id number] 17:30:00 Test Item Value Reference Range Interpretation Comments WBC CSF (test code = 288 See_Comment H [Autom ated message] The WBC CSF) system which ge nerated this result transmit toño reference range : <=5. The reference range was not used to interpr et this result as alistair l/abnormal. [id number] 17:30:00 Test Item Value Reference Range Interpretation Comments Glucose CSF (test code = Glucose CSF) 27 45-80 L [id number] 17:30:00 Test Item Value Reference Range Interpretation Comments Protein CSF (test code = Protein CSF) 68 15-[address] [facility] [id number] 17:30:00 Test Item Value Reference Range Interpretation Comments Monocyte CSF (test code = Monocyte CSF) 7 15-45 L [facility]2012-10-24 17:30:00 Test Item Value Reference Range Interpretation Comments Eos CSF (test code = Eos CSF) 5 [facility]2012-10-24 17:30:00 Test Item Value Reference Range Interpretation Comments RBC CSF (test code = 44 See_Comment H [Autom ated message] The RBC CSF) system which ge nerated this result transmit toño reference range : <=0. The reference range was not used to interpr et this result as alistair l/abnormal. [facility] [id number] 17:30:00 Test Item Value Reference Range Interpretation Comments Lymph CSF (test code = Lymph CSF) 9 40-80 L [facility]2012-10-24 17:30:00 Test Item Value Reference Range Interpretation Comments Segs CSF (test code = 79 See_Comment H [Auto mated message] The Segs CSF) system which ge nerated this result transmit toño reference range : <=6. The reference range was not used to interpr et this result as alistair l/abnormal. [facility] [id number] 17:30:00 Test Item Value Reference Range Interpretation Comments Tube Num CSF (test xxxxxxx (04/19/2012 N code = Tube Num CSF) 12:30:00) [facility]2012-10-24 17:30:00 Test Item Value Reference Range Interpretation Comments Supernat CSF (test Colorless (04/19/2012 N code = Supernat CSF) 12:30:00) [facility]2012-10-24 17:30:00 Test Item Value Reference Range Interpretation Comments Color CSF (test code Colorless (04/19/2012 N = Color CSF) 12:30:00) [facility] [id number] 17:30:00 Test Item Value Reference Range Interpretation Comments Clarity CSF (test code Slight A = Clarity CSF) *ABN*(04/19/2012 12:30:00) [facility] [id number] 17:30:00 Test Item Value Reference Range Interpretation Comments WBC CSF (test code = 288 See_Comment H [Autom ated message] The WBC CSF) system which ge nerated this result transmit toño reference range : <=5. The reference range was not used to interpr et this result as alistair l/abnormal. [facility]2012-10-24 17:30:00 Test Item Value Reference Range Interpretation Comments Glucose CSF (test code = Glucose CSF) 27 45-80 L [facility]2012-10-24 17:30:00 Test Item Value Reference Range Interpretation Comments Protein CSF (test code = Protein CSF) 68 15-45 H [facility] GLUCOSE [id number] 12:52:00 Test Item Value Reference Range Interpretation Comments Comment1 (test code = Comment1) Notify RN/MD [facility] GLUCOSE [id number] 12:52:00 Test Item Value Reference Range Interpretation Comments Comment1 (test code = Comment1) Notify RN/MD [facility]2012-10-23 10:00:00 Test Item Value Reference Range Interpretation Comments WBC CSF (test code = 250 See_Comment H [Autom ated message] The WBC CSF) system which ge nerated this result transmit toño reference range : <=5. The reference range was not used to interpr et this result as alistair l/abnormal. [facility]2012-10-23 10:00:00 Test Item Value Reference Range Interpretation Comments RBC CSF (test code = 360 See_Comment H [Autom ated message] The RBC CSF) system which ge nerated this result transmit toño reference range : <=0. The reference range was not used to interpr et this result as alistair l/abnormal. [facility]2012-10-23 10:00:00 Test Item Value Reference Range Interpretation Comments Segs CSF (test code = 69 See_Comment H [Auto mated message] The Segs CSF) system which ge nerated this result transmit toño reference range : <=6. The reference range was not used to interpr et this result as alistair l/abnormal. [facility]2012-10-23 10:00:00 Test Item Value Reference Range Interpretation Comments Clarity CSF (test code Slight A = Clarity CSF) *ABN*(04/18/2012 05:00:00) [facility]2012-10-23 10:00:00 Test Item Value Reference Range Interpretation Comments Tube Num CSF (test xxxxxxx (04/18/2012 N code = Tube Num CSF) 05:00:00) [facility] [id number] 10:00:00 Test Item Value Reference Range Interpretation Comments Color CSF (test code Xanthoch A = Color CSF) 3*ABN*(04/18/2012 05:00:00) [facility]2012-10-23 10:00:00 Test Item Value Reference Range Interpretation Comments Protein CSF (test code = Protein CSF) 96 15-45 H [facility]2012-10-23 10:00:00 Test Item Value Reference Range Interpretation Comments Glucose CSF (test code = Glucose CSF) 40 45-80 L [facility]2012-10-23 10:00:00 Test Item Value Reference Range Interpretation Comments Monocyte CSF (test code = Monocyte CSF) 13 15-45 L [facility]2012-10-23 10:00:00 Test Item Value Reference Range Interpretation Comments Eos CSF (test code = Eos CSF) 1 [facility]2012-10-23 10:00:00 Test Item Value Reference Range Interpretation Comments Lymph CSF (test code = Lymph CSF) 17 40-[address] [facility] [id number] 10:00:00 Test Item Value Reference Range Interpretation Comments Supernat CSF (test code Xanthoch A = Supernat CSF) 4*ABN*(04/18/2012 05:00:00) [facility] [id number] 10:00:00 Test Item Value Reference Range Interpretation Comments WBC CSF (test code = 250 See_Comment H [Autom ated message] The WBC CSF) system which ge nerated this result transmit toño reference range : <=5. The reference range was not used to interpr et this result as alistair l/abnormal. [facility] [id number] 10:00:00 Test Item Value Reference Range Interpretation Comments RBC CSF (test code = 360 See_Comment H [Autom ated message] The RBC CSF) system which ge nerated this result transmit toño reference range : <=0. The reference range was not used to interpr et this result as alistair l/abnormal. [facility] [id number] 10:00:00 Test Item Value Reference Range Interpretation Comments Segs CSF (test code = 69 See_Comment H [Auto mated message] The Segs CSF) system which ge nerated this result transmit toño reference range : <=6. The reference range was not used to interpr et this result as alistair l/abnormal. [facility]2012-10-23 10:00:00 Test Item Value Reference Range Interpretation Comments Clarity CSF (test code Slight A = Clarity CSF) *ABN*(04/18/2012 05:00:00) [facility]2012-10-23 10:00:00 Test Item Value Reference Range Interpretation Comments Tube Num CSF (test xxxxxxx (04/18/2012 N code = Tube Num CSF) 05:00:00) [facility]2012-10-23 10:00:00 Test Item Value Reference Range Interpretation Comments Color CSF (test code Xanthoch A = Color CSF) 3*ABN*(04/18/2012 05:00:00) [facility]2012-10-23 10:00:00 Test Item Value Reference Range Interpretation Comments Protein CSF (test code = Protein CSF) 96 15-45 H [facility]2012-10-23 10:00:00 Test Item Value Reference Range Interpretation Comments Glucose CSF (test code = Glucose CSF) 40 45-80 L [facility]2012-10-23 10:00:00 Test Item Value Reference Range Interpretation Comments Monocyte CSF (test code = Monocyte CSF) 13 15-45 L [facility]2012-10-23 10:00:00 Test Item Value Reference Range Interpretation Comments Eos CSF (test code = Eos CSF) 1 [facility]2012-10-23 10:00:00 Test Item Value Reference Range Interpretation Comments Lymph CSF (test code = Lymph CSF) 17 40-80 L [facility]2012-10-23 10:00:00 Test Item Value Reference Range Interpretation Comments Supernat CSF (test code Xanthoch A = Supernat CSF) 4*ABN*(04/18/2012 05:00:00) [facility]jglqbjUDRIZUMIWR3420-62-65 12:35:00 Test Item Value Reference Range Interpretation Comments PTT (test code = PTT) 29.0 s 22.9-35.8 N [facility]GzfwlfsJUUQDZJJFH9602-43-88 12:35:00 Test Item Value Reference Range Interpretation Comments PT (test code = PT) 14.1 s 12.0-14.7 N [facility] WczbzcoVRVGUZZWWJ4226-25-01 12:35:00 Test Item Value Reference Range Interpretation Comments INR (test code = INR) 1.07 0.85-1.17 N [facility] SbsqvalCCDPLTXSUJ9606-54-74 12:35:00 Test Item Value Reference Range Interpretation Comments PTT (test code = PTT) 29.0 s 22.9-35.8 N [facility] NegsqdcKQODBTDJKO4781-66-82 12:35:00 Test Item Value Reference Range Interpretation Comments PT (test code = PT) 14.1 s 12.0-14.7 N [facility] OzdkqlePUVVWQVOZL6363-93-09 12:35:00 Test Item Value Reference Range Interpretation Comments INR (test code = INR) 1.07 0.85-1.17 N [facility] [employer] [id number] 12:30:00 Test Item Value Reference Range Interpretation Comments Antibody Scrn (test Negative (04/17/2012 N code = Antibody Scrn) 07:30:00) [employer] [id number] 12:30:00 Test Item Value Reference Range Interpretation Comments ABO/Rh (test code = ABO/Rh) A NEG [employer] [id number] 12:30:00 Test Item Value Reference Range Interpretation Comments Antibody Scrn (test Negative (04/17/2012 N code = Antibody Scrn) 07:30:00) [employer] [id number] 12:30:00 Test Item Value Reference Range Interpretation Comments ABO/Rh (test code = ABO/Rh) A NEG [facility] [employer]2012-10-22 11:25:00 Test Item Value Reference Range Interpretation Comments Glucose CSF (test code = Glucose CSF) 99 45-80 H [employer]2012-10-22 11:25:00 Test Item Value Reference Range Interpretation Comments Lymph CSF (test code = Lymph CSF) 77 40-80 N [employer]2012-10-22 11:25:00 Test Item Value Reference Range Interpretation Comments Monocyte CSF (test code = Monocyte CSF) 13 15-45 L [facility] [employer]2012-10-22 11:25:00 Test Item Value Reference Range Interpretation Comments Segs CSF (test code = 8 See_Comment H [Auto mated message] The Segs CSF) system which ge nerated this result transmit toño reference range : <=6. The reference range was not used to interpr et this result as alistair l/abnormal. [facility] [id number] 11:25:00 Test Item Value Reference Range Interpretation Comments Eos CSF (test code = Eos CSF) [address] [facility] [id number] 11:25:00 Test Item Value Reference Range Interpretation Comments Color CSF (test code Colorless (04/17/2012 N = Color CSF) 06:25:00) [facility] [id number] 11:25:00 Test Item Value Reference Range Interpretation Comments RBC CSF (test code = 22 See_Comment H [Autom ated message] The RBC CSF) system which ge nerated this result transmit toño reference range : <=0. The reference range was not used to interpr et this result as alistair l/abnormal. [facility] [id number] 11:25:00 Test Item Value Reference Range Interpretation Comments Clarity CSF (test code = Clear (04/17/2012 N Clarity CSF) 06:25:00) [facility] [id number] 11:25:00 Test Item Value Reference Range Interpretation Comments Supernat CSF (test Colorless (04/17/2012 N code = Supernat CSF) 06:25:00) [facility] [id number] 11:25:00 Test Item Value Reference Range Interpretation Comments WBC CSF (test code = 105 See_Comment H [Autom ated message] The WBC CSF) system which ge nerated this result transmit toño reference range : <=5. The reference range was not used to interpr et this result as alistair l/abnormal. [facility] [id number] 11:25:00 Test Item Value Reference Range Interpretation Comments Tube Num CSF (test xxxxxxx (04/17/2012 N code = Tube Num CSF) 06:25:00) [facility] [id number] 11:25:00 Test Item Value Reference Range Interpretation Comments Protein CSF (test code = Protein CSF) 58 15-[address] [facility] [id number] 11:25:00 Test Item Value Reference Range Interpretation Comments Glucose CSF (test code = Glucose CSF) 99 45-[address] [facility] [id number] 11:25:00 Test Item Value Reference Range Interpretation Comments Lymph CSF (test code = Lymph CSF) 77 40-80 N [facility]2012-10-22 11:25:00 Test Item Value Reference Range Interpretation Comments Monocyte CSF (test code = Monocyte CSF) 13 15-45 L [facility]2012-10-22 11:25:00 Test Item Value Reference Range Interpretation Comments Segs CSF (test code = 8 See_Comment H [Auto mated message] The Segs CSF) system which ge nerated this result transmit toño reference range : <=6. The reference range was not used to interpr et this result as alistair l/abnormal. [facility] [id number] 11:25:00 Test Item Value Reference Range Interpretation Comments Eos CSF (test code = Eos CSF) 2 [facility]2012-10-22 11:25:00 Test Item Value Reference Range Interpretation Comments Color CSF (test code Colorless (04/17/2012 N = Color CSF) 06:25:00) [facility] [id number] 11:25:00 Test Item Value Reference Range Interpretation Comments RBC CSF (test code = 22 See_Comment H [Autom ated message] The RBC CSF) system which ge nerated this result transmit toño reference range : <=0. The reference range was not used to interpr et this result as alistair l/abnormal. [facility]2012-10-22 11:25:00 Test Item Value Reference Range Interpretation Comments Clarity CSF (test code = Clear (04/17/2012 N Clarity CSF) 06:25:00) [facility]2012-10-22 11:25:00 Test Item Value Reference Range Interpretation Comments Supernat CSF (test Colorless (04/17/2012 N code = Supernat CSF) 06:25:00) [facility] [id number] 11:25:00 Test Item Value Reference Range Interpretation Comments WBC CSF (test code = 105 See_Comment H [Autom ated message] The WBC CSF) system which ge nerated this result transmit toño reference range : <=5. The reference range was not used to interpr et this result as alistair l/abnormal. [facility]HomeMFCDSN2810-[facility] 11:25:00 Test Item Value Reference Range Interpretation Comments Tube Num CSF (test xxxxxxx (04/17/2012 N code = Tube Num CSF) 06:25:00) [facility]man[facility] [id number] 11:25:00 Test Item Value Reference Range Interpretation Comments Protein CSF (test code = Protein CSF) 58 15-45 H [facility]manXoamzzsZMYNLJAXW6150-01-05 05:01:00 Test Item Value Reference Range Interpretation Comments Sodium Lvl (test code = Sodium Lvl) 137 135-145 N [facility]manIxiccbgAWULXRWZG0473-09-66 05:01:00 Test Item Value Reference Range Interpretation Comments Creatinine Lvl (test code = Creatinine 0.9 0.5-1.4 N Lvl) [facility]DvfnncbWHITSQCRD8315-53-97 05:01:00 Test Item Value Reference Range Interpretation Comments Potassium Lvl (test code = Potassium 4.8 3.5-5.1 N Lvl) [facility]iscoHyeoarpBUGDHXINZ9413-18-99 05:01:00 Test Item Value Reference Range Interpretation Comments Sodium Lvl (test code = Sodium Lvl) 137 135-145 N [facility] FriscoXrfygmsEUFCSAVST1201-88-09 05:01:00 Test Item Value Reference Range Interpretation Comments Creatinine Lvl (test code = Creatinine 0.9 0.5-1.4 N Lvl) [facility] SouthDfixcqrMISCIUQGB0074-68-38 05:01:00 Test Item Value Reference Range Interpretation Comments Potassium Lvl (test code = Potassium 4.8 3.5-5.1 N Lvl) [facility]manKhyxbiaCPWXZYGMV7582-57-99 05:01:00 Test Item Value Reference Range Interpretation Comments Glucose Lvl (test code = Glucose Lvl) 249 70-99 H [facility] SouthKwzfxmqXBCZIEAGY7793-94-19 05:01:00 Test Item Value Reference Range Interpretation Comments BUN (test code = BUN) 12 7-22 N [facility] SouthLkiovkvYRLIYHAYA0871-59-53 05:01:00 Test Item Value Reference Range Interpretation Comments eGFR (test code = eGFR) 99 [facility] SouthJukwdxrQDYJVKRWM4007-76-93 05:01:00 Test Item Value Reference Range Interpretation Comments AGAP (test code = AGAP) 14.8 10.0-20.0 N [facility] SouthDhznyxqOLLDGFYFM1527-21-13 05:01:00 Test Item Value Reference Range Interpretation Comments Calcium Lvl (test code = Calcium Lvl) 8.6 8.5-10.5 N [facility] SouthIktafpnLZCTTNFFD2898-31-59 05:01:00 Test Item Value Reference Range Interpretation Comments CO2 (test code = CO2) 26 24-32 N [facility] SouthNivaljfYLOWENYAW6478-26-04 05:01:00 Test Item Value Reference Range Interpretation Comments Chloride Lvl (test code = Chloride Lvl) 101 95-109 N [facility] SouthHosskawMFAHZXCFW6028-54-53 05:01:00 Test Item Value Reference Range Interpretation Comments Glucose Lvl (test code = Glucose Lvl) 249 70-99 H [facility] SouthXfhqgnvQNBOGUXGG1178-52-54 05:01:00 Test Item Value Reference Range Interpretation Comments BUN (test code = BUN) 12 7-22 N [facility] SouthCkwlbkgPXGPVBSGG5196-76-75 05:01:00 Test Item Value Reference Range Interpretation Comments eGFR (test code = eGFR) 99 [facility] SouthYhixebiLOKAJQMYE5184-73-61 05:01:00 Test Item Value Reference Range Interpretation Comments AGAP (test code = AGAP) 14.8 10.0-20.0 N [facility] SouthEouwlhlAAPSYCUUR2264-61-73 05:01:00 Test Item Value Reference Range Interpretation Comments Calcium Lvl (test code = Calcium Lvl) 8.6 8.5-10.5 N [facility] SouthMqgqdubODVMTXZAM0739-26-28 05:01:00 Test Item Value Reference Range Interpretation Comments CO2 (test code = CO2) 26 24-32 N [facility] SouthBafsatoHZFBAXNGJ3395-13-57 05:01:00 Test Item Value Reference Range Interpretation Comments Chloride Lvl (test code = Chloride Lvl) 101 95-109 N [facility] SouthIogsdzjJYSMWANJV0748-30-54 22:30:00 Test Item Value Reference Range Interpretation Comments Vanco Tr TND (test code = Vanco Tr TND) 1730 [facility] SouthBfsmxamUCXYXOMDC9568-18-56 22:30:00 Test Item Value Reference Range Interpretation Comments Vanco Tr (test code = Vanco Tr) 18.4 [facility] SouthYzhntsgEPJKNCREJ0275-68-18 22:30:00 Test Item Value Reference Range Interpretation Comments Vanco Tr TND (test code = Vanco Tr TND) 1730 [facility] SouthNrvnppwWHENDWOIG8274-20-92 22:30:00 Test Item Value Reference Range Interpretation Comments Vanco Tr (test code = Vanco Tr) 18.4 [facility] SouthPgjararHISLYBFMC8218-59-65 05:26:00 Test Item Value Reference Range Interpretation Comments eGFR (test code = eGFR) 99 [facility] SouthIuopihyYODFKWFYT3321-50-13 05:26:00 Test Item Value Reference Range Interpretation Comments AGAP (test code = AGAP) 12.8 10.0-20.0 N [facility] SouthTrimpdtCZAIMZMOJ2396-26-32 05:26:00 Test Item Value Reference Range Interpretation Comments Calcium Lvl (test code = Calcium Lvl) 8.9 8.5-10.5 N [facility] SouthUbvoarfHLLJLYAHI1734-88-28 05:26:00 Test Item Value Reference Range Interpretation Comments CO2 (test code = CO2) 28 24-32 N [facility] SouthPymdervNKJUOGMVO7102-81-57 05:26:00 Test Item Value Reference Range Interpretation Comments Sodium Lvl (test code = Sodium Lvl) 138 135-145 N [facility] SouthSyqjylgIWSEYBIVL0020-84-18 05:26:00 Test Item Value Reference Range Interpretation Comments Chloride Lvl (test code = Chloride Lvl) 102 95-109 N [facility] SouthQtqgyizDUDDSQJPH4354-05-96 05:26:00 Test Item Value Reference Range Interpretation Comments Potassium Lvl (test code = Potassium 4.8 3.5-5.1 N Lvl) [facility] SouthKcjuecmMVCIVTWDS8939-86-06 05:26:00 Test Item Value Reference Range Interpretation Comments Glucose Lvl (test code = Glucose Lvl) 230 70-99 H [facility] SouthZublxsfCBKQWMHEE6866-10-99 05:26:00 Test Item Value Reference Range Interpretation Comments BUN (test code = BUN) 13 7-22 N [facility] SouthHusjehuJCREUKLQK7567-21-32 05:26:00 Test Item Value Reference Range Interpretation Comments Creatinine Lvl (test code = Creatinine 0.9 0.5-1.4 N Lvl) [facility] HospitalYpxctoeHDBQSNJRCV5771-34-28 05:26:00 Test Item Value Reference Range Interpretation Comments Hgb (test code = Hgb) 10.8 12.0-16.0 L [facility] HospitalSlxbfznLLDBVOPTDK4686-11-53 05:26:00 Test Item Value Reference Range Interpretation Comments WBC (test code = WBC) 8.8 3.7-10.4 N [facility] HospitalGqzcfogHIPIXZFDPD4243-13-35 05:26:00 Test Item Value Reference Range Interpretation Comments RBC (test code = RBC) 4.31 4.20-5.40 N [facility] HospitalWralcjhJCFMSZJONG5578-58-55 05:26:00 Test Item Value Reference Range Interpretation Comments MCHC (test code = MCHC) 31.8 32.0-36.0 L [facility] HospitalVplcdlePNOCETBLXP9261-47-54 05:26:00 Test Item Value Reference Range Interpretation Comments RDW (test code = RDW) 15.5 11.5-14.5 H [facility] HospitalSjjkyyyZPRAYBDVRI6094-00-31 05:26:00 Test Item Value Reference Range Interpretation Comments Platelet (test code = Platelet) 303 133-450 N [facility] HospitalSzzuxkrBWAZRDCKWN3784-55-54 05:26:00 Test Item Value Reference Range Interpretation Comments MPV (test code = MPV) 9.3 7.4-10.4 N [facility] HospitalXzhwibzTHXSHKXOVF3996-07-18 05:26:00 Test Item Value Reference Range Interpretation Comments Hct (test code = Hct) 33.9 36.0-48.0 L [facility] HospitalUipujrvEUOKUMQIFF7355-53-05 05:26:00 Test Item Value Reference Range Interpretation Comments MCV (test code = MCV) 78.6 81.0-99.0 L [facility] HospitalQipqmmkZFXOIXKHPQ0787-98-65 05:26:00 Test Item Value Reference Range Interpretation Comments MCH (test code = MCH) 25.0 pg 27.0-31.0 L [facility] HospitalPiuxkqoPGSUYSHQDE1817-56-76 05:26:00 Test Item Value Reference Range Interpretation Comments Basophils # (test code 0.0 See_Comment N [Aut omated message] The = Basophils #) system which generated this result tra nsmitted reference range : <=0.2. The reference r nan was not used to int erpret this result as normal/abnormal . [facility] HospitalPynkiwcQYESPJJLEM1187-93-14 05:26:00 Test Item Value Reference Range Interpretation Comments Microcyte (test code = 1+ *ABN*(04/16/2012 A [employer]) 00:26:00) [facility] HospitalFhcgfpjJFTAKKYDFL7940-13-28 05:26:00 Test Item Value Reference Range Interpretation Comments Monocytes # (test code 0.4 See_Comment N [Aut omated message] The = Monocytes #) system which generated this result tra nsmitted reference range : <=0.8. The reference r nan was not used to int erpret this result as normal/abnormal . [facility] HospitalMrbtqycKKAFTWPUQU7977-21-27 05:26:00 Test Item Value Reference Range Interpretation Comments Eosinophils # (test code 0.0 See_Comment N [A utomated message] The = Eosinophils #) system whic h generated this result tra nsmitted reference range : <=0.5. The reference r nan was not used to int erpret this result as normal/abnormal . [facility] HospitalUsutvkmDOYXGYITLF0817-98-48 05:26:00 Test Item Value Reference Range Interpretation Comments Eosinophils (test code = 0.1 See_Comment N [A utomated message] The Eosinophils) system which ge nerated this result tra nsmitted reference range : <=4.0. The reference r nan was not used to int erpret this result as normal/abnormal . [facility] HospitalNjwtzhbJDSJHIIWUE1325-83-62 05:26:00 Test Item Value Reference Range Interpretation Comments Basophils (test code = 0.0 See_Comment N [Aut omated message] The Basophils) system which ge nerated this result tra nsmitted reference range : <=1.0. The reference r nan was not used to int erpret this result as normal/abnormal . [facility] HospitalZtvnxqeANXMICYZHL9625-08-85 05:26:00 Test Item Value Reference Range Interpretation Comments Segs-Bands # (test code = Segs-Bands #) 7.3 1.5-8.1 N [facility] HospitalZvmonhsKVUPQUXRIR7183-27-05 05:26:00 Test Item Value Reference Range Interpretation Comments Lymphocytes # (test code = Lymphocytes 1.2 1.0-5.5 N #) [facility] HospitalRoyjtenGZYJCBYSJC8702-49-18 05:26:00 Test Item Value Reference Range Interpretation Comments Lymphocytes (test code = Lymphocytes) 13.4 20.0-40.0 L [facility] HospitalUtjtnobQOTPRYYNJQ7395-46-08 05:26:00 Test Item Value Reference Range Interpretation Comments Monocytes (test code = Monocytes) 4.1 2.0-12.0 N [facility] HospitalLixixvtMBAKLGFDTB1442-49-82 05:26:00 Test Item Value Reference Range Interpretation Comments Segs (test code = Segs) 82.4 45.0-75.0 H [facility] SouthOmgypryVZFXPDJIV4121-65-22 05:26:00 Test Item Value Reference Range Interpretation Comments eGFR (test code = eGFR) 99 [facility] SouthArghzaaYZMCYPAZP6541-41-54 05:26:00 Test Item Value Reference Range Interpretation Comments AGAP (test code = AGAP) 12.8 10.0-20.0 N [facility] SouthNdpeowkYEBQETBFU2391-75-30 05:26:00 Test Item Value Reference Range Interpretation Comments Calcium Lvl (test code = Calcium Lvl) 8.9 8.5-10.5 N [facility] SouthNzevddtZWBWIYIZN1932-43-01 05:26:00 Test Item Value Reference Range Interpretation Comments CO2 (test code = CO2) 28 24-32 N [facility] SouthNbmsajtGMEZCPLOA5002-70-54 05:26:00 Test Item Value Reference Range Interpretation Comments Sodium Lvl (test code = Sodium Lvl) 138 135-145 N [facility] SouthEicqdfpEWWMTTCMF9023-51-11 05:26:00 Test Item Value Reference Range Interpretation Comments Chloride Lvl (test code = Chloride Lvl) 102 95-109 N [facility] SouthAzgotwwARWQSTYEW8234-42-66 05:26:00 Test Item Value Reference Range Interpretation Comments Potassium Lvl (test code = Potassium 4.8 3.5-5.1 N Lvl) [facility] SouthQeggeycOUYXFHJEU6955-90-29 05:26:00 Test Item Value Reference Range Interpretation Comments Glucose Lvl (test code = Glucose Lvl) 230 70-99 H [facility] SouthBaiuxqgZRGHLWHUH5877-27-16 05:26:00 Test Item Value Reference Range Interpretation Comments BUN (test code = BUN) 13 7-22 N [facility] SouthRpdrgtrQEDVDKOMM6031-15-28 05:26:00 Test Item Value Reference Range Interpretation Comments Creatinine Lvl (test code = Creatinine 0.9 0.5-1.4 N Lvl) [facility] HospitalFdigtysRHKECHOYTT0649-99-53 05:26:00 Test Item Value Reference Range Interpretation Comments Hgb (test code = Hgb) 10.8 12.0-16.0 L [facility] HospitalSmpqxiwMHQYDKUESP7970-00-32 05:26:00 Test Item Value Reference Range Interpretation Comments WBC (test code = WBC) 8.8 3.7-10.4 N [facility] HospitalQilspvzBQVPFTQTMP2332-57-40 05:26:00 Test Item Value Reference Range Interpretation Comments RBC (test code = RBC) 4.31 4.20-5.40 N [facility] HospitalYatunsaTARIMCEHEK5619-00-65 05:26:00 Test Item Value Reference Range Interpretation Comments MCHC (test code = MCHC) 31.8 32.0-36.0 L [facility] HospitalQcoylytSINLTTWVJH7472-32-54 05:26:00 Test Item Value Reference Range Interpretation Comments RDW (test code = RDW) 15.5 11.5-14.5 H [facility] HospitalKejxufcAWLZXNRJBC7961-02-90 05:26:00 Test Item Value Reference Range Interpretation Comments Platelet (test code = Platelet) 303 133-450 N [facility] HospitalCruiawgABRNPCMROG3594-30-18 05:26:00 Test Item Value Reference Range Interpretation Comments MPV (test code = MPV) 9.3 7.4-10.4 N [facility] HospitalLmvfhzsQVMLDQYZOG6000-27-97 05:26:00 Test Item Value Reference Range Interpretation Comments Hct (test code = Hct) 33.9 36.0-48.0 L [facility] HospitalSuuiuwbOTBBBDGGFQ4876-39-45 05:26:00 Test Item Value Reference Range Interpretation Comments MCV (test code = MCV) 78.6 81.0-99.0 L [facility] HospitalFqyclfiTPGUXFUEID9327-87-50 05:26:00 Test Item Value Reference Range Interpretation Comments MCH (test code = MCH) 25.0 pg 27.0-31.0 L [facility] HospitalHqyrqtdKGUPHXFTPE9098-73-53 05:26:00 Test Item Value Reference Range Interpretation Comments Basophils # (test code 0.0 See_Comment N [Aut omated message] The = Basophils #) system which generated this result tra nsmitted reference range : <=0.2. The reference r nan was not used to int erpret this result as normal/abnormal . [facility] HospitalCqzrblnKBSEHOMJYZ3001-98-47 05:26:00 Test Item Value Reference Range Interpretation Comments Microcyte (test code = 1+ *ABN*(04/16/2012 A Microcyte) 00:26:00) [facility] HospitalGyqoxwyWBRKMGWDGY1329-77-00 05:26:00 Test Item Value Reference Range Interpretation Comments Monocytes # (test code 0.4 See_Comment N [Aut omated message] The = Monocytes #) system which generated this result tra nsmitted reference range : <=0.8. The reference r nan was not used to int erpret this result as normal/abnormal . [facility] HospitalIjktuwpXMCRXNKGFY6983-38-82 05:26:00 Test Item Value Reference Range Interpretation Comments Eosinophils # (test code 0.0 See_Comment N [A utomated message] The = Eosinophils #) system whic h generated this result tra nsmitted reference range : <=0.5. The reference r nan was not used to int erpret this result as normal/abnormal . [facility] HospitalDaeawwaNTVQUCLNDM8146-41-02 05:26:00 Test Item Value Reference Range Interpretation Comments Eosinophils (test code = 0.1 See_Comment N [A utomated message] The Eosinophils) system which ge nerated this result tra nsmitted reference range : <=4.0. The reference r nan was not used to int erpret this result as normal/abnormal . [facility] HospitalUlyazptKRHXQTVHIB7634-43-55 05:26:00 Test Item Value Reference Range Interpretation Comments Basophils (test code = 0.0 See_Comment N [Aut omated message] The Basophils) system which ge nerated this result tra nsmitted reference range : <=1.0. The reference r nan was not used to int erpret this result as normal/abnormal . [facility] HospitalKzqteemGUMRPWRQWS1057-67-16 05:26:00 Test Item Value Reference Range Interpretation Comments Segs-Bands # (test code = Segs-Bands #) 7.3 1.5-8.1 N [facility] HospitalAaqfnmfSGIEDLOFIX5628-34-77 05:26:00 Test Item Value Reference Range Interpretation Comments Lymphocytes # (test code = Lymphocytes 1.2 1.0-5.5 N #) [facility] HospitalOlasngkNDIXABJSRQ9148-08-42 05:26:00 Test Item Value Reference Range Interpretation Comments Lymphocytes (test code = Lymphocytes) 13.4 20.0-40.0 L [facility] HospitalIyuzwikCZCRUKLWPF8962-31-18 05:26:00 Test Item Value Reference Range Interpretation Comments Monocytes (test code = Monocytes) 4.1 2.0-12.0 N [facility] HospitalCeumdrsHAXFBWCDFH4334-36-57 05:26:00 Test Item Value Reference Range Interpretation Comments Segs (test code = Segs) 82.4 45.0-75.0 H [facility] SouthMjigfsuPCVZPABQQ4356-96-30 08:06:00 Test Item Value Reference Range Interpretation Comments eGFR (test code = eGFR) 114 [facility] SouthYzkccmsEONMJXZRK8623-00-53 08:06:00 Test Item Value Reference Range Interpretation Comments CO2 (test code = CO2) 27 24-32 N [facility] SouthApbdfzyPMXZFYWBG5887-48-14 08:06:00 Test Item Value Reference Range Interpretation Comments Potassium Lvl (test code = Potassium 4.9 3.5-5.1 N Lvl) [facility]CelicwyBFGGHKJCU3297-19-40 08:06:00 Test Item Value Reference Range Interpretation Comments Calcium Lvl (test code = Calcium Lvl) 8.9 8.5-10.5 N [facility] SouthYmfjhmlGDXNZIWME5468-06-24 08:06:00 Test Item Value Reference Range Interpretation Comments Chloride Lvl (test code = Chloride Lvl) 103 95-109 N [facility] SouthTaaiurdZNCMTOJIB6814-43-82 08:06:00 Test Item Value Reference Range Interpretation Comments Glucose Lvl (test code = Glucose Lvl) 159 70-99 H [facility] SouthRbmniufNSJDFSRDA4183-68-95 08:06:00 Test Item Value Reference Range Interpretation Comments BUN (test code = BUN) 11 7-22 N [facility] SouthAprvxrvBZSLCAHOV8909-30-44 08:06:00 Test Item Value Reference Range Interpretation Comments Creatinine Lvl (test code = Creatinine 0.8 0.5-1.4 N Lvl) [facility] SouthStmtvqlHXNZBHGBH8200-12-76 08:06:00 Test Item Value Reference Range Interpretation Comments Sodium Lvl (test code = Sodium Lvl) 138 135-145 N [facility] SouthOtoazwqKQVSJPEHS9875-45-88 08:06:00 Test Item Value Reference Range Interpretation Comments AGAP (test code = AGAP) 12.9 10.0-20.0 N [facility] HospitalLbxcxvyPIHJXAOZQX5130-64-17 08:06:00 Test Item Value Reference Range Interpretation Comments MPV (test code = MPV) 9.6 7.4-10.4 N [facility] HospitalRvodhaiMGVHBWGOFT6664-83-36 08:06:00 Test Item Value Reference Range Interpretation Comments WBC (test code = WBC) 8.4 3.7-10.4 N [facility] HospitalQvbitirWQYYBXHTQU3427-99-14 08:06:00 Test Item Value Reference Range Interpretation Comments Platelet (test code = Platelet) 304 133-450 N [facility] HospitalPemnryoKNOKIFFUOF8623-99-14 08:06:00 Test Item Value Reference Range Interpretation Comments Hct (test code = Hct) 33.8 36.0-48.0 L [facility] HospitalNyzhsgzIXKWVOIUKC4072-62-55 08:06:00 Test Item Value Reference Range Interpretation Comments Hgb (test code = Hgb) 10.9 12.0-16.0 L [facility] HospitalLksqxglERTHUNSAFL0638-63-80 08:06:00 Test Item Value Reference Range Interpretation Comments RBC (test code = RBC) 4.28 4.20-5.40 N [facility] HospitalAtdearyNDNANZHJXS5136-47-40 08:06:00 Test Item Value Reference Range Interpretation Comments RDW (test code = RDW) 15.5 11.5-14.5 H [facility] HospitalPhbnoqpXZJDBILMMR1283-71-28 08:06:00 Test Item Value Reference Range Interpretation Comments MCHC (test code = MCHC) 32.2 32.0-36.0 N [facility] HospitalLqxghxoQKSTIBDSMB9991-11-96 08:06:00 Test Item Value Reference Range Interpretation Comments MCH (test code = MCH) 25.4 pg 27.0-31.0 L [facility] HospitalUyhqxvrKEPBBJPWOO1218-64-36 08:06:00 Test Item Value Reference Range Interpretation Comments MCV (test code = MCV) 79.0 81.0-99.0 L [facility] HospitalCsuopauJOICDARSAJ5938-73-03 08:06:00 Test Item Value Reference Range Interpretation Comments Segs-Bands # (test code = Segs-Bands #) 7.5 1.5-8.1 N [facility] HospitalQuunwdkQOVOWRGYCS4665-19-11 08:06:00 Test Item Value Reference Range Interpretation Comments Basophils (test code = 0.7 See_Comment N [Aut omated message] The Basophils) system which ge nerated this result tra nsmitted reference range : <=1.0. The reference r nan was not used to int erpret this result as normal/abnormal . [facility] HospitalRthsrqtGXYURPBKEV2877-46-14 08:06:00 Test Item Value Reference Range Interpretation Comments Lymphocytes # (test code = Lymphocytes 0.7 1.0-5.5 L #) [facility] HospitalFbqucztIUMABVZRNM6028-87-20 08:06:00 Test Item Value Reference Range Interpretation Comments Monocytes # (test code 0.2 See_Comment N [Aut omated message] The = Monocytes #) system which generated this result tra nsmitted reference range : <=0.8. The reference r nan was not used to int erpret this result as normal/abnormal . [facility] HospitalQvckwmeELOPQVRJDE9055-40-52 08:06:00 Test Item Value Reference Range Interpretation Comments Eosinophils # (test code 0.0 See_Comment N [A utomated message] The = Eosinophils #) system whic h generated this result tra nsmitted reference range : <=0.5. The reference r nan was not used to int erpret this result as normal/abnormal . [facility] HospitalChjoolzLENUAHLAFH0217-96-08 08:06:00 Test Item Value Reference Range Interpretation Comments Basophils # (test code 0.1 See_Comment N [Aut omated message] The = Basophils #) system which generated this result tra nsmitted reference range : <=0.2. The reference r nan was not used to int erpret this result as normal/abnormal . [facility] HospitalWppwxycSIBHLPYGCA2593-65-64 08:06:00 Test Item Value Reference Range Interpretation Comments Eosinophils (test code = 0.0 See_Comment N [A utomated message] The Eosinophils) system which ge nerated this result tra nsmitted reference range : <=4.0. The reference r nan was not used to int erpret this result as normal/abnormal . [facility] HospitalBqbrggyUOPDVNNVNO1312-08-68 08:06:00 Test Item Value Reference Range Interpretation Comments Monocytes (test code = Monocytes) 2.4 2.0-12.0 N [facility] HospitalXarlfkzDVXIBUAYDF8267-33-32 08:06:00 Test Item Value Reference Range Interpretation Comments Lymphocytes (test code = Lymphocytes) 7.8 20.0-40.0 L [facility] HospitalToqpscvAESKMHFPEK7511-10-98 08:06:00 Test Item Value Reference Range Interpretation Comments Segs (test code = Segs) 89.1 45.0-75.0 H [facility] SouthMxipkeyJUOKSRMUI2507-00-78 08:06:00 Test Item Value Reference Range Interpretation Comments eGFR (test code = eGFR) 114 [facility] SouthIpxpphkORFXDDNTF7077-76-20 08:06:00 Test Item Value Reference Range Interpretation Comments CO2 (test code = CO2) 27 24-32 N [facility] SouthComzhmkTZPEUJWQE9021-64-24 08:06:00 Test Item Value Reference Range Interpretation Comments Potassium Lvl (test code = Potassium 4.9 3.5-5.1 N Lvl) [facility] SouthLvkbgfwVXGRTPKJV1188-24-96 08:06:00 Test Item Value Reference Range Interpretation Comments Calcium Lvl (test code = Calcium Lvl) 8.9 8.5-10.5 N [facility] SouthKcfzaahQBQGEZEGM5628-47-37 08:06:00 Test Item Value Reference Range Interpretation Comments Chloride Lvl (test code = Chloride Lvl) 103 95-109 N [facility] SouthHxexdpkSWVMUYXTH2188-38-26 08:06:00 Test Item Value Reference Range Interpretation Comments Glucose Lvl (test code = Glucose Lvl) 159 70-99 H [facility] SouthEixvscyCIYAJTRYV4520-42-41 08:06:00 Test Item Value Reference Range Interpretation Comments BUN (test code = BUN) 11 7-22 N [facility] SouthQnlyuvpDLEALZJTE2442-63-17 08:06:00 Test Item Value Reference Range Interpretation Comments Creatinine Lvl (test code = Creatinine 0.8 0.5-1.4 N Lvl) [facility] SouthOlponkaCNTONHTPW5880-98-27 08:06:00 Test Item Value Reference Range Interpretation Comments Sodium Lvl (test code = Sodium Lvl) 138 135-145 N [facility] SouthRmdfjrhCYXVKQUJB1645-53-26 08:06:00 Test Item Value Reference Range Interpretation Comments AGAP (test code = AGAP) 12.9 10.0-20.0 N [facility] HospitalWcxjgdiLQTXCHWHVG4971-19-53 08:06:00 Test Item Value Reference Range Interpretation Comments MPV (test code = MPV) 9.6 7.4-10.4 N [facility] HospitalFoypasjVVYHTSZAXX9191-93-79 08:06:00 Test Item Value Reference Range Interpretation Comments WBC (test code = WBC) 8.4 3.7-10.4 N [facility] HospitalAtxpcawJWBSXZNOHO9887-09-09 08:06:00 Test Item Value Reference Range Interpretation Comments Platelet (test code = Platelet) 304 133-450 N [facility] HospitalUbsrqdrHRAETACPHB4752-23-97 08:06:00 Test Item Value Reference Range Interpretation Comments Hct (test code = Hct) 33.8 36.0-48.0 L [facility] HospitalZjetqfaMEVYQVWVBM9258-77-62 08:06:00 Test Item Value Reference Range Interpretation Comments Hgb (test code = Hgb) 10.9 12.0-16.0 L [facility] HospitalRxuxnjxGDDYQWUMLP0479-84-90 08:06:00 Test Item Value Reference Range Interpretation Comments RBC (test code = RBC) 4.28 4.20-5.40 N [facility] HospitalUmbxyiaYUZYQXGZPP7985-88-08 08:06:00 Test Item Value Reference Range Interpretation Comments RDW (test code = RDW) 15.5 11.5-14.5 H [facility] HospitalPrhacqfEVELHHXNWP3994-04-58 08:06:00 Test Item Value Reference Range Interpretation Comments MCHC (test code = MCHC) 32.2 32.0-36.0 N [facility] HospitalFzbejshBTIOFVBWXW1849-79-53 08:06:00 Test Item Value Reference Range Interpretation Comments MCH (test code = MCH) 25.4 pg 27.0-31.0 L [facility] HospitalDrwfgzlNXGUPZJFIN9176-76-62 08:06:00 Test Item Value Reference Range Interpretation Comments MCV (test code = MCV) 79.0 81.0-99.0 L [facility] HospitalVcznonrISOSOLXKOV9019-71-56 08:06:00 Test Item Value Reference Range Interpretation Comments Segs-Bands # (test code = Segs-Bands #) 7.5 1.5-8.1 N [facility] HospitalDqzixqxSKHQEPKYDF8149-46-57 08:06:00 Test Item Value Reference Range Interpretation Comments Basophils (test code = 0.7 See_Comment N [Aut omated message] The Basophils) system which ge nerated this result tra nsmitted reference range : <=1.0. The reference r nan was not used to int erpret this result as normal/abnormal . [facility] HospitalWfimotcNWVQZYKQQY2615-63-53 08:06:00 Test Item Value Reference Range Interpretation Comments Lymphocytes # (test code = Lymphocytes 0.7 1.0-5.5 L #) [facility] HospitalEhsopwrLZZWLYMBVQ7272-03-76 08:06:00 Test Item Value Reference Range Interpretation Comments Monocytes # (test code 0.2 See_Comment N [Aut omated message] The = Monocytes #) system which generated this result tra nsmitted reference range : <=0.8. The reference r nan was not used to int erpret this result as normal/abnormal . [facility] HospitalFfebvfhGBSRRAPMQP1834-11-35 08:06:00 Test Item Value Reference Range Interpretation Comments Eosinophils # (test code 0.0 See_Comment N [A utomated message] The = Eosinophils #) system whic h generated this result tra nsmitted reference range : <=0.5. The reference r nan was not used to int erpret this result as normal/abnormal . [facility] HospitalGpayapnKQASJKVQOQ5997-48-31 08:06:00 Test Item Value Reference Range Interpretation Comments Basophils # (test code 0.1 See_Comment N [Aut omated message] The = Basophils #) system which generated this result tra nsmitted reference range : <=0.2. The reference r nan was not used to int erpret this result as normal/abnormal . [facility] HospitalVvhobjvUYRYLKLRIP1979-67-79 08:06:00 Test Item Value Reference Range Interpretation Comments Eosinophils (test code = 0.0 See_Comment N [A utomated message] The Eosinophils) system which ge nerated this result tra nsmitted reference range : <=4.0. The reference r nan was not used to int erpret this result as normal/abnormal . [facility] HospitalUqltjytXGLDUFUTIC3370-39-99 08:06:00 Test Item Value Reference Range Interpretation Comments Monocytes (test code = Monocytes) 2.4 2.0-12.0 N [facility] HospitalZjwnhbvZJOZQXOZIE5724-72-79 08:06:00 Test Item Value Reference Range Interpretation Comments Lymphocytes (test code = Lymphocytes) 7.8 20.0-40.0 L [facility] HospitalQwyakglKEBAXQANQN9536-89-83 08:06:00 Test Item Value Reference Range Interpretation Comments Segs (test code = Segs) 89.1 45.0-75.0 H [facility] SouthYybegatFFICAEFQF8164-08-51 02:41:00 Test Item Value Reference Range Interpretation Comments Vanco Tr (test code = Vanco Tr) 7.1 [facility] SouthQhodzkuTJRSXGLTO7904-74-46 02:41:00 Test Item Value Reference Range Interpretation Comments Vanco Tr TND (test code = Vanco Tr TND) * [facility] SouthCjxeytgRGZDMDJMG8445-94-69 02:41:00 Test Item Value Reference Range Interpretation Comments Vanco Tr (test code = Vanco Tr) 7.1 [facility] SouthNgchjczHRFRKGWQZ4323-87-81 02:41:00 Test Item Value Reference Range Interpretation Comments Vanco Tr TND (test code = Vanco Tr TND) * [facility]YowgjotJlguhxloyerf5205-56-86 08:15:00 Test Item Value Reference Range Interpretation Comments Culture: CSF w/Gram Stain (test code = Culture: CSF w/Gram Stain) [facility] CenterJntegbeFhhmlbkhkvqu8185-37-52 08:15:00 Test Item Value Reference Range Interpretation Comments Culture: CSF w/Gram Stain (test code = Culture: CSF w/Gram Stain) [facility] HospitalVdlskwhQKKUJYVFGP8358-38-04 00:00:00 Test Item Value Reference Range Interpretation Comments INR (test code = INR) 0.97 0.85-1.17 N [facility] HospitalBuodxazNRIHXLIMJB3610-43-63 00:00:00 Test Item Value Reference Range Interpretation Comments PTT (test code = PTT) 33.2 s 22.9-35.8 N [facility] HospitalGcdmztfUZZLVSBNSI3207-29-90 00:00:00 Test Item Value Reference Range Interpretation Comments PT (test code = PT) 13.1 s 12.0-14.7 N [facility] HospitalMclcarzOEAXOKFWUM2586-85-91 00:00:00 Test Item Value Reference Range Interpretation Comments WBC (test code = WBC) 6.5 3.7-10.4 N [facility] HospitalYmtoszjGPNWRMGZEM0356-42-33 00:00:00 Test Item Value Reference Range Interpretation Comments RBC (test code = RBC) 4.68 4.20-5.40 N [facility] HospitalNrrlqctHSBUAFXRDN3046-88-72 00:00:00 Test Item Value Reference Range Interpretation Comments Hct (test code = Hct) 36.6 36.0-48.0 N [facility] HospitalHzsuyocKJMDVFXQOP8426-87-46 00:00:00 Test Item Value Reference Range Interpretation Comments Hgb (test code = Hgb) 11.7 12.0-16.0 L [facility] HospitalKsbnkgmOVHIBKDBBL9180-77-66 00:00:00 Test Item Value Reference Range Interpretation Comments MCH (test code = MCH) 25.0 pg 27.0-31.0 L [facility] HospitalTmaujltCHPOEQUIPZ9195-99-96 00:00:00 Test Item Value Reference Range Interpretation Comments MCV (test code = MCV) 78.3 81.0-99.0 L [facility] HospitalMnodpihYRGPQPCDYC1452-69-04 00:00:00 Test Item Value Reference Range Interpretation Comments MCHC (test code = MCHC) 31.9 32.0-36.0 L [facility] HospitalJslpycpNIWQGNZUEW7582-93-64 00:00:00 Test Item Value Reference Range Interpretation Comments RDW (test code = RDW) 14.3 11.5-14.5 N [facility] HospitalKiaofmsHIGOMOLNKP1522-50-76 00:00:00 Test Item Value Reference Range Interpretation Comments MPV (test code = MPV) 8.3 7.4-10.4 N [facility] HospitalHtqegpyQBONDUFDIC0505-75-75 00:00:00 Test Item Value Reference Range Interpretation Comments Platelet (test code = Platelet) 278 133-450 N [facility] HospitalYqrdfulMSARFVESBK2051-73-34 00:00:00 Test Item Value Reference Range Interpretation Comments Segs-Bands # (test code = Segs-Bands #) 4.1 1.5-8.1 N [facility] HospitalVvxjwxuSYEQAZQEQX8849-63-98 00:00:00 Test Item Value Reference Range Interpretation Comments Lymphocytes # (test code = Lymphocytes 1.4 1.0-5.5 N #) [facility] HospitalChkmdwpLZILPGYCZQ6024-70-50 00:00:00 Test Item Value Reference Range Interpretation Comments Monocytes (test code = Monocytes) 8.0 2.0-12.0 N [facility] HospitalPrkudmzAZPMQYFZID6464-94-46 00:00:00 Test Item Value Reference Range Interpretation Comments Eosinophils (test code = 6.0 See_Comment H [A utomated message] The Eosinophils) system which ge nerated this result tra nsmitted reference range : <=4.0. The reference r nan was not used to int erpret this result as normal/abnormal . [facility] HospitalOfplxgbWSUWHPNDDT7507-56-60 00:00:00 Test Item Value Reference Range Interpretation Comments Lymphocytes (test code = Lymphocytes) 22.0 20.0-40.0 N [facility] HospitalLspxgboBDCHDHNARQ7634-34-28 00:00:00 Test Item Value Reference Range Interpretation Comments Segs (test code = Segs) 63.0 45.0-75.0 N [facility] HospitalGubyojtKBHNCSWPPK8626-58-81 00:00:00 Test Item Value Reference Range Interpretation Comments Bands (test code = 0.0 See_Comment N [Automat ed message] The Bands) system which ge nerated this result transmit toño reference range : <=11.0. The reference r nan was not used to interpr et this result as alistair l/abnormal. [facility] HospitalPjabcuqJDTMYBPGVH5420-85-66 00:00:00 Test Item Value Reference Range Interpretation Comments Eosinophils # (test code 0.4 See_Comment N [A utomated message] The = Eosinophils #) system whic h generated this result tra nsmitted reference range : <=0.5. The reference r nan was not used to int erpret this result as normal/abnormal . [facility] HospitalZwdtweuKWBMBIVIVR8867-43-78 00:00:00 Test Item Value Reference Range Interpretation Comments Monocytes # (test code 0.5 See_Comment N [Aut omated message] The = Monocytes #) system which generated this result tra nsmitted reference range : <=0.8. The reference r nan was not used to int erpret this result as normal/abnormal . [facility] HospitalLpojzajMEITWXPDPA8464-49-30 00:00:00 Test Item Value Reference Range Interpretation Comments Basophils # (test code 0.1 See_Comment N [Aut omated message] The = Basophils #) system which generated this result tra nsmitted reference range : <=0.2. The reference r nan was not used to int erpret this result as normal/abnormal . [facility] HospitalPvvmoyjDCMMOICXCH3496-06-25 00:00:00 Test Item Value Reference Range Interpretation Comments Anisocyte (test code = 1+ *ABN*(04/12/2012 A Anisocyte) 19:00:00) [facility] HospitalKavsfncARRBVOBZSH1060-08-88 00:00:00 Test Item Value Reference Range Interpretation Comments Microcyte (test code = 1+ *ABN*(04/12/2012 A Microcyte) 19:00:00) [facility] HospitalKiwgpskOIKYJEFAMR8741-72-30 00:00:00 Test Item Value Reference Range Interpretation Comments Plt Morph (test code = Normal (04/12/2012 N Plt Morph) 19:00:00) [facility] HospitalRsgiqbtTFNHBPGDXF6957-62-65 00:00:00 Test Item Value Reference Range Interpretation Comments Atypical Lymphs (test code = Atypical 0.0 N Lymphs) [facility] HospitalDtotsknMNMQMEMHOQ5154-82-01 00:00:00 Test Item Value Reference Range Interpretation Comments Basophils (test code = 1.0 See_Comment N [Aut omated message] The Basophils) system which ge nerated this result tra nsmitted reference range : <=1.0. The reference r nan was not used to int erpret this result as normal/abnormal . [facility] HospitalChtnbwtCGYNYEFGHE6063-20-24 00:00:00 Test Item Value Reference Range Interpretation Comments Hypochrom (test code = Slight (04/12/2012 N Hypochrom) 19:00:00) [facility] HospitalKyvjpsoFBSGMHJXAM7913-98-41 00:00:00 Test Item Value Reference Range Interpretation Comments Polychrom (test code = Slight (04/12/2012 N Polychrom) 19:00:00) [facility] HospitalAgwrjcqIUOGADUMLS9070-33-73 00:00:00 Test Item Value Reference Range Interpretation Comments INR (test code = INR) 0.97 0.85-1.17 N [facility] HospitalFzkyrwcSJZIMKDHGC1090-44-12 00:00:00 Test Item Value Reference Range Interpretation Comments PTT (test code = PTT) 33.2 s 22.9-35.8 N [facility] HospitalPshhxxgSGUTBDTIWU5878-35-77 00:00:00 Test Item Value Reference Range Interpretation Comments PT (test code = PT) 13.1 s 12.0-14.7 N [facility] HospitalDkmoqwaXOZDBPJSWV5652-77-91 00:00:00 Test Item Value Reference Range Interpretation Comments WBC (test code = WBC) 6.5 3.7-10.4 N [facility] HospitalBpvfxhkXTGSOENKWO0574-39-88 00:00:00 Test Item Value Reference Range Interpretation Comments RBC (test code = RBC) 4.68 4.20-5.40 N [facility] HospitalWwqbeuuTQWALKQVCE6436-74-00 00:00:00 Test Item Value Reference Range Interpretation Comments Hct (test code = Hct) 36.6 36.0-48.0 N [facility] HospitalUjumnwaVTYMYLYBDI0408-60-84 00:00:00 Test Item Value Reference Range Interpretation Comments Hgb (test code = Hgb) 11.7 12.0-16.0 L [facility] HospitalOvcgpkjIJNKBZMYZX6294-88-85 00:00:00 Test Item Value Reference Range Interpretation Comments MCH (test code = MCH) 25.0 pg 27.0-31.0 L [facility] HospitalDsvottdTPQHRSSPKV5639-33-27 00:00:00 Test Item Value Reference Range Interpretation Comments MCV (test code = MCV) 78.3 81.0-99.0 L [facility] HospitalVdhgeiqUPZDFWMFBS3179-68-14 00:00:00 Test Item Value Reference Range Interpretation Comments MCHC (test code = MCHC) 31.9 32.0-36.0 L [facility] HospitalAekhdrcWICHLZHPOA1410-94-26 00:00:00 Test Item Value Reference Range Interpretation Comments RDW (test code = RDW) 14.3 11.5-14.5 N [facility] HospitalEruvvdkEAKPLJXXYQ8355-81-72 00:00:00 Test Item Value Reference Range Interpretation Comments MPV (test code = MPV) 8.3 7.4-10.4 N [facility] HospitalEkynxabOWZSATAXJC7741-66-63 00:00:00 Test Item Value Reference Range Interpretation Comments Platelet (test code = Platelet) 278 133-450 N [facility] HospitalBuhdlfbHJBMYHMNLR2397-31-49 00:00:00 Test Item Value Reference Range Interpretation Comments Segs-Bands # (test code = Segs-Bands #) 4.1 1.5-8.1 N [facility] HospitalCjeisqpKFCFJVIEDF6052-02-62 00:00:00 Test Item Value Reference Range Interpretation Comments Lymphocytes # (test code = Lymphocytes 1.4 1.0-5.5 N #) [facility] HospitalZsntylzDHESOARDJK6179-09-94 00:00:00 Test Item Value Reference Range Interpretation Comments Monocytes (test code = Monocytes) 8.0 2.0-12.0 N [facility] HospitalEpugbkhXPZATADSQP9926-45-95 00:00:00 Test Item Value Reference Range Interpretation Comments Eosinophils (test code = 6.0 See_Comment H [A utomated message] The Eosinophils) system which ge nerated this result tra nsmitted reference range : <=4.0. The reference r nan was not used to int erpret this result as normal/abnormal . [facility] HospitalGamhfslSFJVKKNWGJ9401-03-31 00:00:00 Test Item Value Reference Range Interpretation Comments Lymphocytes (test code = Lymphocytes) 22.0 20.0-40.0 N [facility] HospitalYuhihlrISTOYNZSZI6642-05-32 00:00:00 Test Item Value Reference Range Interpretation Comments Segs (test code = Segs) 63.0 45.0-75.0 N [facility] HospitalUyjarzrRMSCMZXHHD7011-04-36 00:00:00 Test Item Value Reference Range Interpretation Comments Bands (test code = 0.0 See_Comment N [Automat ed message] The Bands) system which ge nerated this result transmit toño reference range : <=11.0. The reference r nan was not used to interpr et this result as alistair l/abnormal. [facility] HospitalXzvskfzFQRJCRGHQR4986-05-67 00:00:00 Test Item Value Reference Range Interpretation Comments Eosinophils # (test code 0.4 See_Comment N [A utomated message] The = Eosinophils #) system whic h generated this result tra nsmitted reference range : <=0.5. The reference r nan was not used to int erpret this result as normal/abnormal . [facility] HospitalTxkfmzeXAGAXJEZVZ6859-07-37 00:00:00 Test Item Value Reference Range Interpretation Comments Monocytes # (test code 0.5 See_Comment N [Aut omated message] The = Monocytes #) system which generated this result tra nsmitted reference range : <=0.8. The reference r nan was not used to int erpret this result as normal/abnormal . [facility] HospitalRubsfouQUHGTJJHGK1414-12-31 00:00:00 Test Item Value Reference Range Interpretation Comments Basophils # (test code 0.1 See_Comment N [Aut omated message] The = Basophils #) system which generated this result tra nsmitted reference range : <=0.2. The reference r nan was not used to int erpret this result as normal/abnormal . [facility] HospitalCkfpnlbYJILNWRRIF4265-49-22 00:00:00 Test Item Value Reference Range Interpretation Comments Anisocyte (test code = 1+ *ABN*(04/12/2012 A Anisocyte) 19:00:00) [facility] HospitalYuwkdkjIVQFUGXWHY9061-98-19 00:00:00 Test Item Value Reference Range Interpretation Comments Microcyte (test code = 1+ *ABN*(04/12/2012 A Microcyte) 19:00:00) [facility] HospitalItydcjhZJUINZEXJA1273-43-41 00:00:00 Test Item Value Reference Range Interpretation Comments Plt Morph (test code = Normal (04/12/2012 N Plt Morph) 19:00:00) [facility] HospitalBqciddaBYIADDRDTZ8164-71-36 00:00:00 Test Item Value Reference Range Interpretation Comments Atypical Lymphs (test code = Atypical 0.0 N Lymphs) [facility]NhllaxlSZKWSRNMYB0933-44-79 00:00:00 Test Item Value Reference Range Interpretation Comments Basophils (test code = 1.0 See_Comment N [Aut omated message] The Basophils) system which ge nerated this result tra nsmitted reference range : <=1.0. The reference r nan was not used to int erpret this result as normal/abnormal . [facility] HospitalEmkgggbUDITDZEKZS3361-64-12 00:00:00 Test Item Value Reference Range Interpretation Comments Hypochrom (test code = Slight (04/12/2012 N Hypochrom) 19:00:00) [facility] HospitalOtwzwiuKRAWCAGWCK0583-36-11 00:00:00 Test Item Value Reference Range Interpretation Comments Polychrom (test code = Slight (04/12/2012 N Polychrom) 19:00:00) [facility]UyaoxmbNDYNLVFNQ6608-35-75 18:50:00 Test Item Value Reference Range Interpretation Comments AGAP (test code = AGAP) 11.3 10.0-20.0 N [facility] SouthFimclniBQHDPFBLX1419-25-62 18:50:00 Test Item Value Reference Range Interpretation Comments eGFR (test code = eGFR) 87 [facility] SouthLyjordyKHHOLWWAM5576-61-06 18:50:00 Test Item Value Reference Range Interpretation Comments Chloride Lvl (test code = Chloride Lvl) 102 95-109 N [facility] SouthNgbqlepCUEGOWUBF3074-69-71 18:50:00 Test Item Value Reference Range Interpretation Comments Sodium Lvl (test code = Sodium Lvl) 139 135-145 N [facility] SouthLgjgpzmNPVABDWSZ0461-77-52 18:50:00 Test Item Value Reference Range Interpretation Comments Potassium Lvl (test code = Potassium 4.3 3.5-5.1 N Lvl) [facility] SouthYgfdaydGBCUEXCEK4382-68-99 18:50:00 Test Item Value Reference Range Interpretation Comments BUN (test code = BUN) 10 7-22 N [facility] SouthJwrhnbmTPTYQMFDL8791-84-59 18:50:00 Test Item Value Reference Range Interpretation Comments Creatinine Lvl (test code = Creatinine 1.0 0.5-1.4 N Lvl) [facility] SouthHbdwtrbEXYOMYYTN0539-24-31 18:50:00 Test Item Value Reference Range Interpretation Comments Glucose Lvl (test code = Glucose Lvl) 113 70-99 H [facility] SouthXxyruamSJTUGVAXE5056-95-67 18:50:00 Test Item Value Reference Range Interpretation Comments CO2 (test code = CO2) 30 24-32 N [facility] SouthDzlopynXPJIWTCVJ0030-71-00 18:50:00 Test Item Value Reference Range Interpretation Comments Calcium Lvl (test code = Calcium Lvl) 9.1 8.5-10.5 N [facility] HospitalRhghxlqUTYQFAKEUH7996-00-05 18:50:00 Test Item Value Reference Range Interpretation Comments INR (test code = INR) 0.97 0.85-1.17 N [facility] HospitalXdvroyfEVMKXGMFNU3111-11-90 18:50:00 Test Item Value Reference Range Interpretation Comments PT (test code = PT) 13.1 s 12.0-14.7 N [facility] HospitalXzxowxiZUUSCQDCBX0480-07-16 18:50:00 Test Item Value Reference Range Interpretation Comments PTT (test code = PTT) 33.1 s 22.9-35.8 N [facility] HospitalKtmwfsxSQUWXCGLOO7634-31-66 18:50:00 Test Item Value Reference Range Interpretation Comments Hgb (test code = Hgb) 11.8 12.0-16.0 L [facility] HospitalBkvtoclARNUJHMBSZ8255-02-98 18:50:00 Test Item Value Reference Range Interpretation Comments Hct (test code = Hct) 36.4 36.0-48.0 N [facility] HospitalGnrjsrfAQMNHWORHU6092-69-80 18:50:00 Test Item Value Reference Range Interpretation Comments RBC (test code = RBC) 4.70 4.20-5.40 N [facility] HospitalLliwsxeZBGPNFSTZZ2838-62-64 18:50:00 Test Item Value Reference Range Interpretation Comments WBC (test code = WBC) 5.1 3.7-10.4 N [facility] HospitalPqztzzcCYZVWAJMUV5488-38-59 18:50:00 Test Item Value Reference Range Interpretation Comments Platelet (test code = Platelet) 301 133-450 N [facility] HospitalWshterjUBCPGBDPAH3565-21-51 18:50:00 Test Item Value Reference Range Interpretation Comments MPV (test code = MPV) 8.5 7.4-10.4 N [facility] HospitalNwhgzzcEQNQDEZVAO3197-39-22 18:50:00 Test Item Value Reference Range Interpretation Comments MCHC (test code = MCHC) 32.5 32.0-36.0 N [facility] HospitalQpwhxirONXASSRIRF7708-75-46 18:50:00 Test Item Value Reference Range Interpretation Comments MCH (test code = MCH) 25.1 pg 27.0-31.0 L [facility] HospitalZwcjssrAXKVBYJZOE8688-46-43 18:50:00 Test Item Value Reference Range Interpretation Comments RDW (test code = RDW) 14.4 11.5-14.5 N [facility] HospitalWmyhcepWKMGZXLGUW1214-07-40 18:50:00 Test Item Value Reference Range Interpretation Comments MCV (test code = MCV) 77.4 81.0-99.0 L [facility] HospitalJvmaqezTTIAPZHDUN7790-53-14 18:50:00 Test Item Value Reference Range Interpretation Comments Basophils # (test code 0.0 See_Comment N [Aut omated message] The = Basophils #) system which generated this result tra nsmitted reference range : <=0.2. The reference r nan was not used to int erpret this result as normal/abnormal . [facility] HospitalMtmzfwtMABRYDTNZI6401-95-21 18:50:00 Test Item Value Reference Range Interpretation Comments Elliptocyte (test code = Slight A Elliptocyte) *ABN*(04/05/2012 13:50:00) [facility] HospitalDofoureVWXWOOVEYF0516-71-81 18:50:00 Test Item Value Reference Range Interpretation Comments Microcyte (test code = 1+ *ABN*(04/05/2012 A Microcyte) 13:50:00) [facility] HospitalJbkyojaQCCDOXPTLB8785-42-85 18:50:00 Test Item Value Reference Range Interpretation Comments Monocytes # (test code 0.2 See_Comment N [Aut omated message] The = Monocytes #) system which generated this result tra nsmitted reference range : <=0.8. The reference r nan was not used to int erpret this result as normal/abnormal . [facility] HospitalHikxhcvSCYAZWSVNH3762-81-02 18:50:00 Test Item Value Reference Range Interpretation Comments Eosinophils # (test code 0.3 See_Comment N [A utomated message] The = Eosinophils #) system whic h generated this result tra nsmitted reference range : <=0.5. The reference r nan was not used to int erpret this result as normal/abnormal . [facility] HospitalBdkjybuUILPHKKWYS0251-23-07 18:50:00 Test Item Value Reference Range Interpretation Comments Eosinophils (test code = 5.6 See_Comment H [A utomated message] The Eosinophils) system which ge nerated this result tra nsmitted reference range : <=4.0. The reference r nan was not used to int erpret this result as normal/abnormal . [facility] HospitalGsjhunrDKYDAGFBPN3426-50-96 18:50:00 Test Item Value Reference Range Interpretation Comments Plt Morph (test code = Normal (04/05/2012 N Plt Morph) 13:50:00) [facility] HospitalZznvjpvJUZBZMUGBC5987-88-52 18:50:00 Test Item Value Reference Range Interpretation Comments Basophils (test code = 0.7 See_Comment N [Aut omated message] The Basophils) system which ge nerated this result tra nsmitted reference range : <=1.0. The reference r nan was not used to int erpret this result as normal/abnormal . [facility] HospitalOrmbhqcDYDPVICBON9820-95-80 18:50:00 Test Item Value Reference Range Interpretation Comments Segs-Bands # (test code = Segs-Bands #) 3.7 1.5-8.1 N [facility] HospitalQfoxdbdJUASFGUCCI5816-14-23 18:50:00 Test Item Value Reference Range Interpretation Comments Lymphocytes # (test code = Lymphocytes 0.9 1.0-5.5 L #) [facility] HospitalRopnlrjYELDMWBFHG3911-37-09 18:50:00 Test Item Value Reference Range Interpretation Comments Segs (test code = Segs) 72.7 45.0-75.0 N [facility] HospitalSgvqtwnEZKPNBUWYC5501-79-97 18:50:00 Test Item Value Reference Range Interpretation Comments Lymphocytes (test code = Lymphocytes) 17.4 20.0-40.0 L [facility] HospitalMvyovauBHMTFRNQZL6475-28-51 18:50:00 Test Item Value Reference Range Interpretation Comments Monocytes (test code = Monocytes) 3.6 2.0-12.0 N [facility] SouthEzcdajrHPFKKEMOS8232-32-36 18:50:00 Test Item Value Reference Range Interpretation Comments AGAP (test code = AGAP) 11.3 10.0-20.0 N [facility] SouthSbpesmsPRHVTHZSK1180-71-48 18:50:00 Test Item Value Reference Range Interpretation Comments eGFR (test code = eGFR) 87 [facility] SouthCxlfnacFVKANZKSH9858-65-41 18:50:00 Test Item Value Reference Range Interpretation Comments Chloride Lvl (test code = Chloride Lvl) 102 95-109 N [facility] SouthLgfzzpySGBBDWGDJ8101-49-43 18:50:00 Test Item Value Reference Range Interpretation Comments Sodium Lvl (test code = Sodium Lvl) 139 135-145 N [facility] SouthAbmolmoBWISMCFNS2828-26-70 18:50:00 Test Item Value Reference Range Interpretation Comments Potassium Lvl (test code = Potassium 4.3 3.5-5.1 N Lvl) [facility] SouthWugtjnoDSZACABUD7253-22-26 18:50:00 Test Item Value Reference Range Interpretation Comments BUN (test code = BUN) 10 7-22 N [facility] SouthDgfpycvDQVEAJFSR9180-19-69 18:50:00 Test Item Value Reference Range Interpretation Comments Creatinine Lvl (test code = Creatinine 1.0 0.5-1.4 N Lvl) [facility] SouthAzoygdpFRQGBJWEI9239-31-99 18:50:00 Test Item Value Reference Range Interpretation Comments Glucose Lvl (test code = Glucose Lvl) 113 70-99 H [facility] SouthQyxerhbPSDKFZEJA8204-54-39 18:50:00 Test Item Value Reference Range Interpretation Comments CO2 (test code = CO2) 30 24-32 N [facility] SouthJyajrbfBFCHCVNSX0486-42-84 18:50:00 Test Item Value Reference Range Interpretation Comments Calcium Lvl (test code = Calcium Lvl) 9.1 8.5-10.5 N [facility] HospitalVztpdvcLHMUBTWLEQ5413-26-89 18:50:00 Test Item Value Reference Range Interpretation Comments INR (test code = INR) 0.97 0.85-1.17 N [facility] HospitalZtfywlhJLFEIGPWWZ5296-93-39 18:50:00 Test Item Value Reference Range Interpretation Comments PT (test code = PT) 13.1 s 12.0-14.7 N [facility] HospitalUzhfopuJEXKZWIYWQ2560-62-67 18:50:00 Test Item Value Reference Range Interpretation Comments PTT (test code = PTT) 33.1 s 22.9-35.8 N [facility] HospitalPyupmfsZMQWPZBTDV3961-76-78 18:50:00 Test Item Value Reference Range Interpretation Comments Hgb (test code = Hgb) 11.8 12.0-16.0 L [facility] HospitalBjwwfgxGFQMRPVPXX9188-99-59 18:50:00 Test Item Value Reference Range Interpretation Comments Hct (test code = Hct) 36.4 36.0-48.0 N [facility] HospitalIeftwtkIWKVTXYKPA9334-92-07 18:50:00 Test Item Value Reference Range Interpretation Comments RBC (test code = RBC) 4.70 4.20-5.40 N [facility] HospitalTkwllxiQNHPYSUHJO7359-97-29 18:50:00 Test Item Value Reference Range Interpretation Comments WBC (test code = WBC) 5.1 3.7-10.4 N [facility] HospitalKcezragANESSWJTDL3393-65-28 18:50:00 Test Item Value Reference Range Interpretation Comments Platelet (test code = Platelet) 301 133-450 N [facility] HospitalPluisoaVIBTBVXFRR6755-16-83 18:50:00 Test Item Value Reference Range Interpretation Comments MPV (test code = MPV) 8.5 7.4-10.4 N [facility] HospitalTgxxpxqFLVEXKDZZW9815-49-46 18:50:00 Test Item Value Reference Range Interpretation Comments MCHC (test code = MCHC) 32.5 32.0-36.0 N [facility] HospitalYrohycpUDAGWANUPD6648-36-15 18:50:00 Test Item Value Reference Range Interpretation Comments MCH (test code = MCH) 25.1 pg 27.0-31.0 L [facility] HospitalBjhsklyYSVHCVVOKF6395-51-21 18:50:00 Test Item Value Reference Range Interpretation Comments RDW (test code = RDW) 14.4 11.5-14.5 N [facility] HospitalUmyphqsWLIQXFGHTH8201-26-28 18:50:00 Test Item Value Reference Range Interpretation Comments MCV (test code = MCV) 77.4 81.0-99.0 L [facility] HospitalYpnuuzgUGYNRSQWZG1506-47-17 18:50:00 Test Item Value Reference Range Interpretation Comments Basophils # (test code 0.0 See_Comment N [Aut omated message] The = Basophils #) system which generated this result tra nsmitted reference range : <=0.2. The reference r nan was not used to int erpret this result as normal/abnormal . [facility] HospitalAulpazhCWRTDFLRIG7966-35-23 18:50:00 Test Item Value Reference Range Interpretation Comments Elliptocyte (test code = Slight A Elliptocyte) *ABN*(04/05/2012 13:50:00) [facility] HospitalVdfvmetOVFTJMLTXP3975-00-44 18:50:00 Test Item Value Reference Range Interpretation Comments Microcyte (test code = 1+ *ABN*(04/05/2012 A Microcyte) 13:50:00) [facility] HospitalMdbtihnKLSIGRTRIX8005-98-26 18:50:00 Test Item Value Reference Range Interpretation Comments Monocytes # (test code 0.2 See_Comment N [Aut omated message] The = Monocytes #) system which generated this result tra nsmitted reference range : <=0.8. The reference r nan was not used to int erpret this result as normal/abnormal . [facility] HospitalSzydeehMXZONNIKYG1830-20-76 18:50:00 Test Item Value Reference Range Interpretation Comments Eosinophils # (test code 0.3 See_Comment N [A utomated message] The = Eosinophils #) system whic h generated this result tra nsmitted reference range : <=0.5. The reference r nan was not used to int erpret this result as normal/abnormal . [facility] HospitalXntogvbCAAMZGUDYL1260-85-13 18:50:00 Test Item Value Reference Range Interpretation Comments Eosinophils (test code = 5.6 See_Comment H [A utomated message] The Eosinophils) system which ge nerated this result tra nsmitted reference range : <=4.0. The reference r nan was not used to int erpret this result as normal/abnormal . [facility] HospitalEgtdqnrFUIHHLDCFJ1039-14-35 18:50:00 Test Item Value Reference Range Interpretation Comments Plt Morph (test code = Normal (04/05/2012 N Plt Morph) 13:50:00) [facility] HospitalDoiawqhCAQRQUIRCL8602-26-85 18:50:00 Test Item Value Reference Range Interpretation Comments Basophils (test code = 0.7 See_Comment N [Aut omated message] The Basophils) system which ge nerated this result tra nsmitted reference range : <=1.0. The reference r nan was not used to int erpret this result as normal/abnormal . [facility] HospitalXchuxozMPRPBIYLYS9038-30-49 18:50:00 Test Item Value Reference Range Interpretation Comments Segs-Bands # (test code = Segs-Bands #) 3.7 1.5-8.1 N [facility] HospitalSethgyqSSZECEEZOJ5373-85-65 18:50:00 Test Item Value Reference Range Interpretation Comments Lymphocytes # (test code = Lymphocytes 0.9 1.0-5.5 L #) [facility] HospitalFzpxahoDROFPVJCTX5976-05-23 18:50:00 Test Item Value Reference Range Interpretation Comments Segs (test code = Segs) 72.7 45.0-75.0 N [facility] HospitalUjlehbuXZPHFGFZGT5251-78-73 18:50:00 Test Item Value Reference Range Interpretation Comments Lymphocytes (test code = Lymphocytes) 17.4 20.0-40.0 L [facility] HospitalXcbqeopGWCZLLVSWN3110-21-32 18:50:00 Test Item Value Reference Range Interpretation Comments Monocytes (test code = Monocytes) 3.6 2.0-12.0 N [facility]EnpfplvGFJFFCEKGX5524-90-00 17:53:00 Test Item Value Reference Range Interpretation Comments CDC-HIV 1/2 Ab (test Negative *NA*(04/05/2012 code = CDC-HIV 1/2 12:53:00) Ab) [facility] CenterVzsvquwWDBTMIHHJY9897-92-92 17:53:00 Test Item Value Reference Range Interpretation Comments CDC-HIV 1/2 Ab (test Negative *NA*(04/05/2012 code = CDC-HIV 1/2 12:53:00) Ab) [facility] GLUCOSE ZNHGNRD4373-49-75 11:21:00 Test Item Value Reference Range Interpretation Comments Gluc POC Lifscn (test code = Gluc POC 143 70-99 H Lifscn) [facility] GLUCOSE XBKXNRE9810-65-79 11:21:00 Test Item Value Reference Range Interpretation Comments Gluc POC Lifscn (test code = Gluc POC 143 70-99 H Lifscn) [facility] GLUCOSE RULZZLT0061-27-12 02:00:00 Test Item Value Reference Range Interpretation Comments Gluc POC Lifscn (test code = Gluc POC 151 70-99 H Lifscn) [facility] GLUCOSE JPXRKKB1341-81-06 02:00:00 Test Item Value Reference Range Interpretation Comments Gluc POC Lifscn (test code = Gluc POC 151 70-99 H Lifscn) [facility] GLUCOSE WHUMFDQ3506-90-78 16:07:00 Test Item Value Reference Range Interpretation Comments Gluc POC Lifscn (test code = Gluc POC 136 70-99 H Lifscn) [facility] GLUCOSE LQFXYFS8055-56-79 16:07:00 Test Item Value Reference Range Interpretation Comments Gluc POC Lifscn (test code = Gluc POC 136 70-99 H Lifscn) [facility] GLUCOSE RZSLDYV0674-58-68 09:21:00 Test Item Value Reference Range Interpretation Comments Comment1 (test code = Comment1) Notify RN/ [facility] GLUCOSE [id number] 09:21:00 Test Item Value Reference Range Interpretation Comments Comment1 (test code = Comment1) Not[facility] RN/ [facility]YyjnrosOVCMHSNKE4093-32-93 07:39:00 Test Item Value Reference Range Interpretation Comments Ca Norm mgdL (test code = Ca Norm mgdL) 4.76 4.65-5.20 N [facility] SouthXrdhoilQFMAGJNCS0912-26-82 07:39:00 Test Item Value Reference Range Interpretation Comments Ca Ion mgdL (test code = Ca Ion mgdL) 4.60 4.65-5.20 L [facility] SouthHegzjxsGHDJIYTSG1798-89-13 07:39:00 Test Item Value Reference Range Interpretation Comments Ca Ion (test code = Ca Ion) 1.15 1.16-1.30 L [facility] SouthIulbctkOIRPSZTHG7584-06-82 07:39:00 Test Item Value Reference Range Interpretation Comments Ca Norm (test code = Ca Norm) 1.19 1.16-1.30 N [facility] SouthHamjuglTRLFXKQDK4617-62-95 07:39:00 Test Item Value Reference Range Interpretation Comments Phosphorus (test code = Phosphorus) 2.8 2.5-4.5 N [facility] SouthPqfdazsLNRMYDBBF3615-46-00 07:39:00 Test Item Value Reference Range Interpretation Comments Magnesium Lvl (test code = Magnesium 1.6 1.8-2.4 L Lvl) [facility] SouthDnhvpycELCSMETIY7064-88-11 07:39:00 Test Item Value Reference Range Interpretation Comments AGAP (test code = AGAP) 15.9 10.0-20.0 N [facility] SouthGvqhipyKFVCHUYPR4971-84-80 07:39:00 Test Item Value Reference Range Interpretation Comments Calcium Lvl (test code = Calcium Lvl) 7.9 8.5-10.5 L [facility] SouthMnrxpjgLDIKDMJZQ9977-38-70 07:39:00 Test Item Value Reference Range Interpretation Comments Potassium Lvl (test code = Potassium 4.9 3.5-5.1 N Lvl) [facility] SouthBpbjtgnBYVPUFIGY0437-26-35 07:39:00 Test Item Value Reference Range Interpretation Comments Sodium Lvl (test code = Sodium Lvl) 139 135-145 N [facility] SouthPfaqehgNBVBNJABH6515-74-12 07:39:00 Test Item Value Reference Range Interpretation Comments Creatinine Lvl (test code = Creatinine 0.9 0.5-1.4 N Lvl) [facility] SouthHmcsbsuWPXYIWXON7932-91-83 07:39:00 Test Item Value Reference Range Interpretation Comments Chloride Lvl (test code = Chloride Lvl) 106 95-109 N [facility] SouthWrzzefbQHPNELBZL6933-95-80 07:39:00 Test Item Value Reference Range Interpretation Comments CO2 (test code = CO2) 22 24-32 L [facility] SouthDrwubmcJTPBNCFAZ0679-46-33 07:39:00 Test Item Value Reference Range Interpretation Comments Glucose Lvl (test code = Glucose Lvl) 127 70-99 H [facility] SouthPdtznaeHCSTLFLGG6482-99-66 07:39:00 Test Item Value Reference Range Interpretation Comments BUN (test code = BUN) 8 7-22 N [facility] HospitalOakjynuTQRQZTRXIT1936-98-78 07:39:00 Test Item Value Reference Range Interpretation Comments Monocytes # (test code 0.1 See_Comment N [Aut omated message] The = Monocytes #) system which generated this result tra nsmitted reference range : <=0.8. The reference r nan was not used to int erpret this result as normal/abnormal . [facility] HospitalFiwqknvMRJDSQFQDW8717-46-85 07:39:00 Test Item Value Reference Range Interpretation Comments Eosinophils # (test code 0.0 See_Comment N [A utomated message] The = Eosinophils #) system whic h generated this result tra nsmitted reference range : <=0.5. The reference r nan was not used to int erpret this result as normal/abnormal . [facility] HospitalHezglqgULZUUXOMMP2721-32-69 07:39:00 Test Item Value Reference Range Interpretation Comments Basophils # (test code 0.0 See_Comment N [Aut omated message] The = Basophils #) system which generated this result tra nsmitted reference range : <=0.2. The reference r nan was not used to int erpret this result as normal/abnormal . [facility] HospitalBaxxkzqMODSGRNNQW2583-06-25 07:39:00 Test Item Value Reference Range Interpretation Comments Microcyte (test code = 1+ *ABN*(03/28/2012 A Microcyte) 02:39:00) [facility] HospitalXvxoqqiFHXEFLWJIP8259-89-02 07:39:00 Test Item Value Reference Range Interpretation Comments Lymphocytes # (test code = Lymphocytes 0.5 1.0-5.5 L #) [facility] HospitalEstamwnSEXBCRKZVH8154-90-76 07:39:00 Test Item Value Reference Range Interpretation Comments Monocytes (test code = Monocytes) 1.3 2.0-12.0 L [facility] HospitalCvudpkvOMVHUHSBZG9150-62-34 07:39:00 Test Item Value Reference Range Interpretation Comments Eosinophils (test code = 0.1 See_Comment N [A utomated message] The Eosinophils) system which ge nerated this result tra nsmitted reference range : <=4.0. The reference r nan was not used to int erpret this result as normal/abnormal . [facility] HospitalXyvcamlGTTBWOZACI2167-25-22 07:39:00 Test Item Value Reference Range Interpretation Comments Basophils (test code = 0.0 See_Comment N [Aut omated message] The Basophils) system which ge nerated this result tra nsmitted reference range : <=1.0. The reference r nan was not used to int erpret this result as normal/abnormal . [facility] HospitalTeqfbqdZLFPXAGGFC0399-70-58 07:39:00 Test Item Value Reference Range Interpretation Comments Segs-Bands # (test code = Segs-Bands #) 7.4 1.5-8.1 N [facility] HospitalOrozrllMHHGLBRQNF1641-67-61 07:39:00 Test Item Value Reference Range Interpretation Comments Segs (test code = Segs) 92.3 45.0-75.0 H [facility] HospitalUlpuazvQFQTBGSLSG9094-91-08 07:39:00 Test Item Value Reference Range Interpretation Comments Lymphocytes (test code = Lymphocytes) 6.3 20.0-40.0 L [facility] HospitalNbzpxzoFRJFYBIQMM3675-00-46 07:39:00 Test Item Value Reference Range Interpretation Comments PTT (test code = PTT) 29.3 s 22.9-35.8 N [facility] HospitalAvndffpDZMJXHBQNO0739-19-93 07:39:00 Test Item Value Reference Range Interpretation Comments PT (test code = PT) 14.7 s 12.0-14.7 N [facility] HospitalJtpzyluHEHNAYQTPT7585-41-01 07:39:00 Test Item Value Reference Range Interpretation Comments INR (test code = INR) 1.13 0.85-1.17 N [facility] HospitalPvqmnknYLFKTIXTLS0504-74-44 07:39:00 Test Item Value Reference Range Interpretation Comments MCV (test code = MCV) 78.8 81.0-99.0 L [facility] HospitalVqnugcdLQWQTUQVOF6302-51-11 07:39:00 Test Item Value Reference Range Interpretation Comments MCH (test code = MCH) 25.4 pg 27.0-31.0 L [facility] HospitalOoxnnjdQRGNPXFRVD2474-13-99 07:39:00 Test Item Value Reference Range Interpretation Comments MCHC (test code = MCHC) 32.3 32.0-36.0 N [facility] HospitalXfjskzjPSGROBHRLP1486-99-38 07:39:00 Test Item Value Reference Range Interpretation Comments RDW (test code = RDW) 15.7 11.5-14.5 H [facility] HospitalYrnttfdBCHDSRZHHB8205-57-28 07:39:00 Test Item Value Reference Range Interpretation Comments Platelet (test code = Platelet) 288 133-450 N [facility] HospitalMhklhbhBAFWYLKEDZ0067-85-06 07:39:00 Test Item Value Reference Range Interpretation Comments MPV (test code = MPV) 9.4 7.4-10.4 N [facility] HospitalMacjomlVLEBXMCFJZ2025-49-43 07:39:00 Test Item Value Reference Range Interpretation Comments Hct (test code = Hct) 33.0 36.0-48.0 L [facility] HospitalEcvzfikNVHBYYNJVY5410-01-60 07:39:00 Test Item Value Reference Range Interpretation Comments WBC (test code = WBC) 8.0 3.7-10.4 N [facility] HospitalYgoakrnBQAXASXTSD1614-37-01 07:39:00 Test Item Value Reference Range Interpretation Comments RBC (test code = RBC) 4.19 4.20-5.40 L [facility] HospitalZjmxcgeBEYPCUTEEV8291-31-23 07:39:00 Test Item Value Reference Range Interpretation Comments Hgb (test code = Hgb) 10.6 12.0-16.0 L [facility]BiaxoslLFQVUBRBT1121-21-04 07:39:00 Test Item Value Reference Range Interpretation Comments Ca Norm mgdL (test code = Ca Norm mgdL) 4.76 4.65-5.20 N [facility] SouthNpvnegrSYTPIBIJZ2521-43-23 07:39:00 Test Item Value Reference Range Interpretation Comments Ca Ion mgdL (test code = Ca Ion mgdL) 4.60 4.65-5.20 L [facility] SouthWcskcelXAGWQQSCP5853-44-89 07:39:00 Test Item Value Reference Range Interpretation Comments Ca Ion (test code = Ca Ion) 1.15 1.16-1.30 L [facility] SouthFnbsswnVZMPFHGOI6270-65-51 07:39:00 Test Item Value Reference Range Interpretation Comments Ca Norm (test code = Ca Norm) 1.19 1.16-1.30 N [facility] SouthEatszlsCQJBNIYMJ5683-21-51 07:39:00 Test Item Value Reference Range Interpretation Comments Phosphorus (test code = Phosphorus) 2.8 2.5-4.5 N [facility] SouthFrshpfuNMNHGNQKW9501-68-91 07:39:00 Test Item Value Reference Range Interpretation Comments Magnesium Lvl (test code = Magnesium 1.6 1.8-2.4 L Lvl) [facility] SouthXkeebtbBEDVEBGWL2827-46-50 07:39:00 Test Item Value Reference Range Interpretation Comments AGAP (test code = AGAP) 15.9 10.0-20.0 N [facility] SouthZoeuaccGMCGWMZWQ7001-88-20 07:39:00 Test Item Value Reference Range Interpretation Comments Calcium Lvl (test code = Calcium Lvl) 7.9 8.5-10.5 L [facility] SouthJtffihbFMDJOQWKY9504-31-90 07:39:00 Test Item Value Reference Range Interpretation Comments Potassium Lvl (test code = Potassium 4.9 3.5-5.1 N Lvl) [facility] SouthJozuzbvXUQXOBSWP5914-76-17 07:39:00 Test Item Value Reference Range Interpretation Comments Sodium Lvl (test code = Sodium Lvl) 139 135-145 N [facility] SouthSgiknmxEOMBOEXTG6607-00-81 07:39:00 Test Item Value Reference Range Interpretation Comments Creatinine Lvl (test code = Creatinine 0.9 0.5-1.4 N Lvl) [facility] SouthLlfwdnyQTUFJESPL4104-84-90 07:39:00 Test Item Value Reference Range Interpretation Comments Chloride Lvl (test code = Chloride Lvl) 106 95-109 N [facility] SouthIgwrnnzMAXPWEVOX7804-14-51 07:39:00 Test Item Value Reference Range Interpretation Comments CO2 (test code = CO2) 22 24-32 L [facility] SouthMqgjgzoVJIEGCRCX0371-55-90 07:39:00 Test Item Value Reference Range Interpretation Comments Glucose Lvl (test code = Glucose Lvl) 127 70-99 H [facility] SouthRwdcbcdKBRMXAEOT0524-55-70 07:39:00 Test Item Value Reference Range Interpretation Comments BUN (test code = BUN) 8 7-22 N [facility] HospitalAgysxrsXREUAVHHJP2397-71-35 07:39:00 Test Item Value Reference Range Interpretation Comments Monocytes # (test code 0.1 See_Comment N [Aut omated message] The = Monocytes #) system which generated this result tra nsmitted reference range : <=0.8. The reference r nan was not used to int erpret this result as normal/abnormal . [facility] HospitalAmrvsqvCKTNCXCMXG4684-51-28 07:39:00 Test Item Value Reference Range Interpretation Comments Eosinophils # (test code 0.0 See_Comment N [A utomated message] The = Eosinophils #) system whic h generated this result tra nsmitted reference range : <=0.5. The reference r nan was not used to int erpret this result as normal/abnormal . [facility] HospitalJqpzdidAUVFYQPESX2204-39-17 07:39:00 Test Item Value Reference Range Interpretation Comments Basophils # (test code 0.0 See_Comment N [Aut omated message] The = Basophils #) system which generated this result tra nsmitted reference range : <=0.2. The reference r nan was not used to int erpret this result as normal/abnormal . [facility] HospitalAkaxlbhZZHDTXDROG0674-61-66 07:39:00 Test Item Value Reference Range Interpretation Comments Microcyte (test code = 1+ *ABN*(03/28/2012 A Microcyte) 02:39:00) [facility] HospitalEoutqxaHPESQNZTMH1340-34-33 07:39:00 Test Item Value Reference Range Interpretation Comments Lymphocytes # (test code = Lymphocytes 0.5 1.0-5.5 L #) [facility] HospitalGxfvjyxXMUTMQJJVT3672-95-16 07:39:00 Test Item Value Reference Range Interpretation Comments Monocytes (test code = Monocytes) 1.3 2.0-12.0 L [facility] HospitalMcurjgqZROWWUBHPP3478-81-06 07:39:00 Test Item Value Reference Range Interpretation Comments Eosinophils (test code = 0.1 See_Comment N [A utomated message] The Eosinophils) system which ge nerated this result tra nsmitted reference range : <=4.0. The reference r nan was not used to int erpret this result as normal/abnormal . [facility] HospitalApclcksSDEBUYZCFE2179-41-68 07:39:00 Test Item Value Reference Range Interpretation Comments Basophils (test code = 0.0 See_Comment N [Aut omated message] The Basophils) system which ge nerated this result tra nsmitted reference range : <=1.0. The reference r nan was not used to int erpret this result as normal/abnormal . [facility] HospitalGnoflnqNVBDIVLUNY2816-27-82 07:39:00 Test Item Value Reference Range Interpretation Comments Segs-Bands # (test code = Segs-Bands #) 7.4 1.5-8.1 N [facility] HospitalNurqmbuZJYOIVHEVU6411-11-66 07:39:00 Test Item Value Reference Range Interpretation Comments Segs (test code = Segs) 92.3 45.0-75.0 H [facility] HospitalAyzuteyZEGBJJSGCT7760-50-66 07:39:00 Test Item Value Reference Range Interpretation Comments Lymphocytes (test code = Lymphocytes) 6.3 20.0-40.0 L [facility] HospitalXvhlowiFHUREUAGUW4843-30-34 07:39:00 Test Item Value Reference Range Interpretation Comments PTT (test code = PTT) 29.3 s 22.9-35.8 N [facility] HospitalSlaggkdTSZSBKSSEX4822-73-46 07:39:00 Test Item Value Reference Range Interpretation Comments PT (test code = PT) 14.7 s 12.0-14.7 N [facility] HospitalLlvcntfUGVLYAYPQD7132-62-26 07:39:00 Test Item Value Reference Range Interpretation Comments INR (test code = INR) 1.13 0.85-1.17 N [facility] HospitalLgbrzwvJCJNTHIZHZ7271-31-05 07:39:00 Test Item Value Reference Range Interpretation Comments MCV (test code = MCV) 78.8 81.0-99.0 L [facility] HospitalUmupfnoMJNJKRLQBO5172-69-42 07:39:00 Test Item Value Reference Range Interpretation Comments MCH (test code = MCH) 25.4 pg 27.0-31.0 L [facility] HospitalOxwdydxSIUYSSTPAO1967-45-28 07:39:00 Test Item Value Reference Range Interpretation Comments MCHC (test code = MCHC) 32.3 32.0-36.0 N [facility] HospitalWufhgjkZYJPTYEBRB5447-54-97 07:39:00 Test Item Value Reference Range Interpretation Comments RDW (test code = RDW) 15.7 11.5-14.5 H [facility] HospitalFssjdjaPGSIZDFDLL5503-84-80 07:39:00 Test Item Value Reference Range Interpretation Comments Platelet (test code = Platelet) 288 133-450 N [facility] HospitalIvoxlijWQQYCMGRJC0032-43-33 07:39:00 Test Item Value Reference Range Interpretation Comments MPV (test code = MPV) 9.4 7.4-10.4 N [facility] HospitalAbkuqxrVWBZPLVZUU9629-21-00 07:39:00 Test Item Value Reference Range Interpretation Comments Hct (test code = Hct) 33.0 36.0-48.0 L [facility] HospitalPgrvqtcEUXYGAARXU3748-21-64 07:39:00 Test Item Value Reference Range Interpretation Comments WBC (test code = WBC) 8.0 3.7-10.4 N [facility] HospitalRgsxklgHFFGPUANIW7780-42-52 07:39:00 Test Item Value Reference Range Interpretation Comments RBC (test code = RBC) 4.19 4.20-5.40 L [facility] HospitalIyweifzHCDZWDGFIR1814-59-24 07:39:00 Test Item Value Reference Range Interpretation Comments Hgb (test code = Hgb) 10.6 12.0-16.0 L [facility] GLUCOSE DAMXADZ3833-22-67 04:52:00 Test Item Value Reference Range Interpretation Comments Comment1 (test code = Comment1) Notify NAILA/ [facility] GLUCOSE CRVZXMR6260-78-11 04:52:00 Test Item Value Reference Range Interpretation Comments Comment1 (test code = Comment1) Notify NAILA/ [facility] GLUCOSE EWAFUKJ2876-83-32 00:39:00 Test Item Value Reference Range Interpretation Comments Comment1 (test code = Comment1) Notify NAILA/ [facility] GLUCOSE RAYLVHP7166-40-18 00:39:00 Test Item Value Reference Range Interpretation Comments Comment1 (test code = Comment1) Notify NAILA/ [facility] SouthLbqfqifYZWOKNLDG0360-71-63 13:59:00 Test Item Value Reference Range Interpretation Comments POC A Glu (test code = POC A Glu) 97 70-99 N [facility] SouthUoxwosmMISVNSVGX2176-41-90 13:59:00 Test Item Value Reference Range Interpretation Comments POC A LA (test code = POC A LA) 0.6 0.5-2.2 N [facility] SouthZsiosdtUQBWDZWIN2538-48-87 13:59:00 Test Item Value Reference Range Interpretation Comments POC A HCO3 (test code = POC A HCO3) 28 22-26 H [facility] SouthCcwxtimHZXGDDTHA1652-32-07 13:59:00 Test Item Value Reference Range Interpretation Comments POC A PCO2 (test code = POC A PCO2) 40 35-45 N [facility] SouthPoqvnndPWRCKDACI1818-80-25 13:59:00 Test Item Value Reference Range Interpretation Comments POC A O2 Sat (test code = POC A O2 Sat) 100.0 95.0-100.0 N [facility] SouthYosdtocFCTWRQWTG9319-21-06 13:59:00 Test Item Value Reference Range Interpretation Comments POC A BE (test code = 4 See_Comment H [Auto mated message] The POC A BE) system which ge nerated this result transmit toño reference range : <=2. The reference range was not used to interpr et this result as alistair l/abnormal. [facility] SouthBdegbsaJATUJRTFH9195-94-95 13:59:00 Test Item Value Reference Range Interpretation Comments POC A Ca Ion (test code = POC A Ca Ion) 1.08 1.16-1.30 L [facility] SouthGxqzqulGGJQANHJA3421-95-43 13:59:00 Test Item Value Reference Range Interpretation Comments POC A K (test code = POC A K) 4.4 3.5-5.1 N [facility] SouthWbjxsquAYAZIVTWW3681-78-04 13:59:00 Test Item Value Reference Range Interpretation Comments POC A Source (test code = POC A Source) ART [facility] SouthJpfykguTHDYFROJU4334-44-69 13:59:00 Test Item Value Reference Range Interpretation Comments POC A Temp (test code = POC A Temp) 37.0 [facility] SouthAhpsldrAFJTCFGQJ2608-86-26 13:59:00 Test Item Value Reference Range Interpretation Comments POC A Na (test code = POC A Na) 134 135-145 L [facility] SouthYnkmpwwPVBRBICPT4115-14-02 13:59:00 Test Item Value Reference Range Interpretation Comments POC A Hct (test code = POC A Hct) 34.0 36.0-48.0 L [facility] SouthXzynsivRTWWDIJJK1067-84-77 13:59:00 Test Item Value Reference Range Interpretation Comments POC A PO2 (test code = POC A PO2) 317 80-100 H [facility] SouthLckyhdiUZEKTXWSI1720-20-38 13:59:00 Test Item Value Reference Range Interpretation Comments POC A pH (test code = POC A pH) 7.45 7.35-7.45 N [facility] SouthPbybitvGHVSNPERQ7941-23-38 13:59:00 Test Item Value Reference Range Interpretation Comments POC A Glu (test code = POC A Glu) 97 70-99 N [facility] SouthQokoxezYCERSZIZC9744-30-16 13:59:00 Test Item Value Reference Range Interpretation Comments POC A LA (test code = POC A LA) 0.6 0.5-2.2 N [facility] SouthEnnoavgBPOTUZOLS6919-28-14 13:59:00 Test Item Value Reference Range Interpretation Comments POC A HCO3 (test code = POC A HCO3) 28 22-26 H [facility] SouthEfmomnfIKCHFBUCE8345-86-73 13:59:00 Test Item Value Reference Range Interpretation Comments POC A PCO2 (test code = POC A PCO2) 40 35-45 N [facility] SouthGoetdonIMKPSWKFC9441-43-40 13:59:00 Test Item Value Reference Range Interpretation Comments POC A O2 Sat (test code = POC A O2 Sat) 100.0 95.0-100.0 N [facility] SouthJhtmimeMGBBSKJOI9839-75-58 13:59:00 Test Item Value Reference Range Interpretation Comments POC A BE (test code = 4 See_Comment H [Auto mated message] The POC A BE) system which ge nerated this result transmit toño reference range : <=2. The reference range was not used to interpr et this result as alistair l/abnormal. [facility] SouthAxkxvloHZDXQGTZQ9944-04-64 13:59:00 Test Item Value Reference Range Interpretation Comments POC A Ca Ion (test code = POC A Ca Ion) 1.08 1.16-1.30 L [facility] SouthCyhodxrLVFLUDCLE7155-30-31 13:59:00 Test Item Value Reference Range Interpretation Comments POC A K (test code = POC A K) 4.4 3.5-5.1 N [facility] SouthFewaceeLCNTMEMJO6465-20-60 13:59:00 Test Item Value Reference Range Interpretation Comments POC A Source (test code = POC A Source) ART [facility] SouthSugzbvgJKJRBTRJH7448-72-23 13:59:00 Test Item Value Reference Range Interpretation Comments POC A Temp (test code = POC A Temp) 37.0 [facility] QewgkcwVDQRXBZTQ3216-82-79 13:59:00 Test Item Value Reference Range Interpretation Comments POC A Na (test code = POC A Na) 134 135-145 L [facility] BkmkmsuPGPZSTQUI3501-91-11 13:59:00 Test Item Value Reference Range Interpretation Comments POC A Hct (test code = POC A Hct) 34.0 36.0-48.0 L [facility] MsromjlEJMGDAMGE2369-50-62 13:59:00 Test Item Value Reference Range Interpretation Comments POC A PO2 (test code = POC A PO2) 317 80-100 H [facility] FowpoatZMQILDUMF2868-68-50 13:59:00 Test Item Value Reference Range Interpretation Comments POC A pH (test code = POC A pH) 7.45 7.35-7.45 N [facility] [employer] KRPLLDL7449-14-40 11:15:00 Test Item Value Reference Range Interpretation Comments Antibody Scrn (test Negative (03/27/2012 N code = Antibody Scrn) 06:15:00) [facility] [employer] LYMXLFJ3702-03-57 11:15:00 Test Item Value Reference Range Interpretation Comments ABO/Rh (test code = ABO/Rh) A NEG [facility] [employer] KORTDGF3021-29-04 11:15:00 Test Item Value Reference Range Interpretation Comments Antibody Scrn (test Negative (03/27/2012 N code = Antibody Scrn) 06:15:00) [facility] [employer] EDINKTD2196-92-20 11:15:00 Test Item Value Reference Range Interpretation Comments ABO/Rh (test code = ABO/Rh) A NEG [facility] VeifgduDJHTJSQHH0261-46-12 10:39:00 Test Item Value Reference Range Interpretation Comments U Preg (test code = U Negative (03/27/2012 N Preg) 05:39:00) [facility] DtfyqciVZMAYLQAD1229-21-23 10:39:00 Test Item Value Reference Range Interpretation Comments U Preg (test code = U Negative (03/27/2012 N Preg) 05:39:00) [facility]FQDEDWTCV8069-44-86 19:55:00 Test Item Value Reference Range Interpretation Comments AGAP (test code = AGAP) 14.5 10.0-20.0 N [facility] UnderjuJHPEEZJNL8789-74-98 19:55:00 Test Item Value Reference Range Interpretation Comments BUN (test code = BUN) 9 7-22 N [facility] SouthQlqoquaCOFYEDQCG5890-23-29 19:55:00 Test Item Value Reference Range Interpretation Comments Glucose Lvl (test code = Glucose Lvl) 83 70-99 N [facility] SouthQantbrrLOSRTFBVT3120-46-14 19:55:00 Test Item Value Reference Range Interpretation Comments Creatinine Lvl (test code = Creatinine 1.1 0.5-1.4 N Lvl) [facility] SouthRcinrleHXQSTKYUN3599-97-73 19:55:00 Test Item Value Reference Range Interpretation Comments Potassium Lvl (test code = Potassium 4.5 3.5-5.1 N Lvl) [facility] SouthLnyobmpCDMVPQRHU9460-58-79 19:55:00 Test Item Value Reference Range Interpretation Comments Sodium Lvl (test code = Sodium Lvl) 143 135-145 N [facility] SouthYdfkpneKGNLDAEZZ2120-47-54 19:55:00 Test Item Value Reference Range Interpretation Comments Chloride Lvl (test code = Chloride Lvl) 104 95-109 N [facility] SouthOzafrvuPEFVGZPSJ1472-77-73 19:55:00 Test Item Value Reference Range Interpretation Comments Calcium Lvl (test code = Calcium Lvl) 9.2 8.5-10.5 N [facility] SouthNyfxpztETJNRBVWW1102-47-46 19:55:00 Test Item Value Reference Range Interpretation Comments CO2 (test code = CO2) 29 24-32 N [facility] HospitalQigllbmEMHWVSKLUT4885-31-91 19:55:00 Test Item Value Reference Range Interpretation Comments Platelet (test code = Platelet) 286 133-450 N [facility] HospitalTffmnvmAMJCMIDQED3770-23-93 19:55:00 Test Item Value Reference Range Interpretation Comments MPV (test code = MPV) 8.9 7.4-10.4 N [facility] HospitalLqwshfxMGJKZQVAHR3602-17-67 19:55:00 Test Item Value Reference Range Interpretation Comments MCHC (test code = MCHC) 31.3 32.0-36.0 L [facility] HospitalJtvbgrzTGNURKUVQZ0578-65-84 19:55:00 Test Item Value Reference Range Interpretation Comments MCH (test code = MCH) 24.8 pg 27.0-31.0 L [facility] HospitalSenxcmmXEWXIOHJJP3045-12-24 19:55:00 Test Item Value Reference Range Interpretation Comments Hct (test code = Hct) 39.3 36.0-48.0 N [facility] HospitalGrxzcpeBYKRCILDQC8957-04-02 19:55:00 Test Item Value Reference Range Interpretation Comments Hgb (test code = Hgb) 12.3 12.0-16.0 N [facility] HospitalRkppvetRRBPUXGHPC9929-61-39 19:55:00 Test Item Value Reference Range Interpretation Comments MCV (test code = MCV) 79.2 81.0-99.0 L [facility] HospitalFgtvwvwRCNPLXDBEK0944-27-99 19:55:00 Test Item Value Reference Range Interpretation Comments RDW (test code = RDW) 15.7 11.5-14.5 H [facility] HospitalUiulabzGWVBZBCKVH4141-43-81 19:55:00 Test Item Value Reference Range Interpretation Comments WBC (test code = WBC) 5.8 3.7-10.4 N [facility] HospitalTbwoksqTZFXIOIPYU6259-74-96 19:55:00 Test Item Value Reference Range Interpretation Comments RBC (test code = RBC) 4.96 4.20-5.40 N [facility] HospitalQxnfignTRSOQCIFXU3170-93-85 19:55:00 Test Item Value Reference Range Interpretation Comments INR (test code = INR) 1.10 0.85-1.17 N [facility] HospitalAcgizmwONYSDXBIHI4606-75-18 19:55:00 Test Item Value Reference Range Interpretation Comments PT (test code = PT) 14.4 s 12.0-14.7 N [facility] HospitalXglpbpqPPYLVSIYBY2701-61-10 19:55:00 Test Item Value Reference Range Interpretation Comments PTT (test code = PTT) 32.3 s 22.9-35.8 N [facility] HospitalLdhgknxJUADWESPJA1758-14-87 19:55:00 Test Item Value Reference Range Interpretation Comments Segs-Bands # (test code = Segs-Bands #) 3.2 1.5-8.1 N [facility] HospitalKbuikonDUFAUEBMVT6354-18-14 19:55:00 Test Item Value Reference Range Interpretation Comments Basophils (test code = 0.9 See_Comment N [Aut omated message] The Basophils) system which ge nerated this result tra nsmitted reference range : <=1.0. The reference r nan was not used to int erpret this result as normal/abnormal . [facility] HospitalMirvzqnWIBEKFGYIL5549-62-17 19:55:00 Test Item Value Reference Range Interpretation Comments Eosinophils # (test code 0.3 See_Comment N [A utomated message] The = Eosinophils #) system whic h generated this result tra nsmitted reference range : <=0.5. The reference r nan was not used to int erpret this result as normal/abnormal . [facility] HospitalNjpcobnGKUPZXBBDP2113-68-80 19:55:00 Test Item Value Reference Range Interpretation Comments Basophils # (test code 0.1 See_Comment N [Aut omated message] The = Basophils #) system which generated this result tra nsmitted reference range : <=0.2. The reference r nan was not used to int erpret this result as normal/abnormal . [facility] HospitalTonqhmxFBVVIWYAWT5279-93-77 19:55:00 Test Item Value Reference Range Interpretation Comments Lymphocytes # (test code = Lymphocytes 1.8 1.0-5.5 N #) [facility] HospitalMjphamgNNSXFFCBQB6076-03-11 19:55:00 Test Item Value Reference Range Interpretation Comments Monocytes # (test code 0.4 See_Comment N [Aut omated message] The = Monocytes #) system which generated this result tra nsmitted reference range : <=0.8. The reference r nan was not used to int erpret this result as normal/abnormal . [facility] HospitalBvuzqchKSCDOTETYN9059-20-99 19:55:00 Test Item Value Reference Range Interpretation Comments Segs (test code = Segs) 55.4 45.0-75.0 N [facility] HospitalKjchuunJDMAHZJJWK6587-46-52 19:55:00 Test Item Value Reference Range Interpretation Comments Monocytes (test code = Monocytes) 7.2 2.0-12.0 N [facility] HospitalSkcsznyEJDPFPKOLR9116-91-22 19:55:00 Test Item Value Reference Range Interpretation Comments Lymphocytes (test code = Lymphocytes) 30.5 20.0-40.0 N [facility] HospitalMzrgjrnQGZBFOMMXB1995-53-57 19:55:00 Test Item Value Reference Range Interpretation Comments Eosinophils (test code = 6.0 See_Comment H [A utomated message] The Eosinophils) system which ge nerated this result tra nsmitted reference range : <=4.0. The reference r nan was not used to int erpret this result as normal/abnormal . [facility] SouthNtrcgayQQBSWQECW9925-20-98 19:55:00 Test Item Value Reference Range Interpretation Comments AGAP (test code = AGAP) 14.5 10.0-20.0 N [facility] SouthIypjcshNLEVNNOPB1824-19-03 19:55:00 Test Item Value Reference Range Interpretation Comments BUN (test code = BUN) 9 7-22 N [facility] SouthAxifiigLKZJGSDTR1124-38-82 19:55:00 Test Item Value Reference Range Interpretation Comments Glucose Lvl (test code = Glucose Lvl) 83 70-99 N [facility] SouthQmwxymbBPTNSVTXI9286-39-86 19:55:00 Test Item Value Reference Range Interpretation Comments Creatinine Lvl (test code = Creatinine 1.1 0.5-1.4 N Lvl) [facility] SouthCobomyxDERMKWDEI2446-04-20 19:55:00 Test Item Value Reference Range Interpretation Comments Potassium Lvl (test code = Potassium 4.5 3.5-5.1 N Lvl) [facility] SouthQgkcwswICWRPFPVB5032-24-34 19:55:00 Test Item Value Reference Range Interpretation Comments Sodium Lvl (test code = Sodium Lvl) 143 135-145 N [facility] SouthCykypriQJFFTSKML3304-49-98 19:55:00 Test Item Value Reference Range Interpretation Comments Chloride Lvl (test code = Chloride Lvl) 104 95-109 N [facility] SouthSsqrktrOYUTIDOTK1019-37-46 19:55:00 Test Item Value Reference Range Interpretation Comments Calcium Lvl (test code = Calcium Lvl) 9.2 8.5-10.5 N [facility] SouthLdcorniFRJLSNYGE6369-23-53 19:55:00 Test Item Value Reference Range Interpretation Comments CO2 (test code = CO2) 29 24-32 N [facility] HospitalQvxlyvpHCKPVTXOQH0925-82-19 19:55:00 Test Item Value Reference Range Interpretation Comments Platelet (test code = Platelet) 286 133-450 N [facility] HospitalYmmiyjzMHWPUTGMRW5977-76-58 19:55:00 Test Item Value Reference Range Interpretation Comments MPV (test code = MPV) 8.9 7.4-10.4 N [facility] HospitalVnvuuomIJXKTZEEBB2294-82-65 19:55:00 Test Item Value Reference Range Interpretation Comments MCHC (test code = MCHC) 31.3 32.0-36.0 L [facility] HospitalXoepdpdNOUPGDPHIV7990-26-66 19:55:00 Test Item Value Reference Range Interpretation Comments MCH (test code = MCH) 24.8 pg 27.0-31.0 L [facility] HospitalNywremtHVXJQYNZML5924-99-10 19:55:00 Test Item Value Reference Range Interpretation Comments Hct (test code = Hct) 39.3 36.0-48.0 N [facility] HospitalEtvlalmCQDRZZUYLZ2781-49-10 19:55:00 Test Item Value Reference Range Interpretation Comments Hgb (test code = Hgb) 12.3 12.0-16.0 [id number] 19:55:00 Test Item Value Reference Range Interpretation Comments MCV (test code = MCV) 79.2 81.0-99.0 L [id number] 19:55:00 Test Item Value Reference Range Interpretation Comments RDW (test code = RDW) 15.7 11.5-14.5 H [facility] H[id number] 19:55:00 Test Item Value Reference Range Interpretation Comments WBC (test code = WBC) 5.8 3.7-10.4 N [facility] H[id number] 19:55:00 Test Item Value Reference Range Interpretation Comments RBC (test code = RBC) 4.96 4.20-5.40 N [facility] H[id number] 19:55:00 Test Item Value Reference Range Interpretation Comments INR (test code = INR) 1.10 0.85-1.17 N [facility] Hospit[id number] 19:55:00 Test Item Value Reference Range Interpretation Comments PT (test code = PT) 14.4 s 12.0-14.7 N [facility] H[id number] 19:55:00 Test Item Value Reference Range Interpretation Comments PTT (test code = PTT) 32.3 s 22.9-35.8 N [facility] H[id number] 19:55:00 Test Item Value Reference Range Interpretation Comments Segs-Bands # (test code = Segs-Bands #) 3.2 1.5-8.1 N [facility] H[id number] 19:55:00 Test Item Value Reference Range Interpretation Comments Basophils (test code = 0.9 See_Comment N [Aut omated message] The Basophils) system which ge nerated this result tra nsmitted reference range : <=1.0. The reference r nan was not used to int erpret this result as normal/abnormal . [facility] Hos[id number] 19:55:00 Test Item Value Reference Range Interpretation Comments Eosinophils # (test code 0.3 See_Comment N [A utomated message] The = Eosinophils #) system whic h generated this result tra nsmitted reference range : <=0.5. The reference r nan was not used to int erpret this result as normal/abnormal . [facility] H[id number] 19:55:00 Test Item Value Reference Range Interpretation Comments Basophils # (test code 0.1 See_Comment N [Aut omated message] The = Basophils #) system which generated this result tra nsmitted reference range : <=0.2. The reference r nan was not used to int erpret this result as normal/abnormal . [facility] H[id number] 19:55:00 Test Item Value Reference Range Interpretation Comments Lymphocytes # (test code = Lymphocytes 1.8 1.0-5.5 N #) [facility] H[id number] 19:55:00 Test Item Value Reference Range Interpretation Comments Monocytes # (test code 0.4 See_Comment N [Aut omated message] The = Monocytes #) system which generated this result tra nsmitted reference range : <=0.8. The reference r nan was not used to int erpret this result as normal/abnormal . [facility] Hospit[id number] 19:55:00 Test Item Value Reference Range Interpretation Comments Segs (test code = Segs) 55.4 45.0-75.0 N [facility] Hospit[id number] 19:55:00 Test Item Value Reference Range Interpretation Comments Monocytes (test code = Monocytes) 7.2 2.0-12.0 N [facility] H[id number] 19:55:00 Test Item Value Reference Range Interpretation Comments Lymphocytes (test code = Lymphocytes) 30.5 20.0-40.0 N [facility] H[id number] 19:55:00 Test Item Value Reference Range Interpretation Comments Eosinophils (test code = 6.0 See_Comment H [A utomated message] The Eosinophils) system which ge nerated this result tra nsmitted reference range : <=4.0. The reference r nan was not used to int erpret this result as normal/abnormal . [facility]
[2022-06-15 10:14] LABS: Absolute Lymphocytes (CBC) 1.4 K/uL (0.7-4.9); Hematocrit 35.1 % (36.0-45.0); Lymphocytes % 17.9 % (15.3-44.8); MPV 7.8 fL (7.6-11.3); RBC Red Blood Cell Count 4.95 M/uL (3.86-4.86)
[2022-06-15 10:24] LABS: Magnesium 1.9 mg/dL (1.6-2.4); Potassium 4.2 mmol/L (3.5-5.1); Troponin High Sensitivity 18.4 pg/mL (<58.9)
[2022-06-15] MEDS ORDERED: DIPHENHYDRAMINE 50 MG/ML VIAL ONE (10:46)
--- NOTE | 2022-06-15 11:11 | RAD REPORT ---
EXAM DESCRIPTION: [facility] Single View06/15/2022 10:09 am CLINICAL HISTORY: Shortness of breath COMPARISON: 2010 FINDINGS: The lungs appear clear of acute infiltrate. The heart is normal size IMPRESSION: No acute abnormalities displayed
--- NOTE | 2022-06-15 11:21 | EDPHYS ---
Physician Documentation [facility] Name: Blaze Aragon Age: 41 yrs Sex: Female : 1980 Arrival Date: 06/15/2022 Time: 09:21 Bed 6 Private MD: Hilario Camarena ED Physician Alf Mora HPI: 06/15 09:33 This 41 yrs old Black Female presents to ER via Wheelchair with complaints of Shortness ms3 Of Breath. 09:33 The patient has shortness of breath at rest. Onset: The symptoms/episode began/occurred ms3 1 week(s) ago. Duration: The symptoms are continuous, and are steadily getting worse. The patient's shortness of breath is aggravated by exertion, is alleviated by nothing. Associated signs and symptoms: Pertinent positives: non-productive cough, Pertinent negatives: chest pain, diaphoresis, dizziness, fever, vomiting. Severity of symptoms: At their worst the symptoms were severe today, in the emergency department the symptoms are unchanged. Historical: - Allergies: 09:31 No Known Allergies; iw - PMHx: 09:31 Asthma; Chiari malformation; connective tissue disorder; iw - Immunization history:: Client reports receiving the 2nd dose of the Covid vaccine, Flu vaccine is not up to date. - Social history:: Smoking status: Patient denies any tobacco usage or history of. ROS: 09:33 Constitutional: Negative for fever, and chills. Neck: Negative for injury, pain, and ms3 swelling, Cardiovascular: Negative for chest pain, and palpitations. 09:33 MS/Extremity: Negative for injury and deformity, Skin: Negative for injury, rash, and discoloration. 09:33 Respiratory: Positive for shortness of breath. 09:33 All other systems are negative. Exam: 09:33 Constitutional: This is a well developed, well nourished patient who is awake, alert, ms3 and in no acute distress. Head/Face: Normocephalic, atraumatic. Neck: Trachea midline, no cervical lymphadenopathy. Supple, full range of motion without nuchal rigidity, or vertebral point tenderness. No Meningismus. Chest/axilla: Normal chest wall appearance and motion. Nontender with no deformity. Cardiovascular: Regular rate and rhythm with a normal S1 and S2. No gallops, murmurs, or rubs. Normal PMI, no JVD. No pulse deficits. Abdomen/GI: Soft, non-tender, with normal bowel sounds. No distension or tympany. No guarding or rebound. No evidence of tenderness throughout. 09:33 Respiratory: moderate respiratory distress is noted, Respirations: labored breathing, that is moderate, Breath sounds: wheezing: expiratory that is moderate, is heard diffusely, Respiratory rate: 30 09:44 ECG was reviewed by the Attending Physician. ms3 Vital Signs: 09:30 BP 137 / 82; Pulse 124; Resp 30 S; Temp 97.9(O); Pulse Ox 99% on R/A; iw 10:36 BP 137 / 72; Pulse 114; Resp 27 S; Pulse Ox 99% on R/A; kc6 12:34 BP 176 / 81; Pulse 90; Resp 20 S; Pulse Ox 93% on R/A; Pain 0/10; kc6 13:37 BP 135 / 75; Pulse 117; Resp 19 S; Temp 97.8(O); Pulse Ox 90% on R/A; Pain 0/10; kc6 MDM: 09:32 Patient medically screened. ms3 09:33 Differential diagnosis: asthma, pneumonia, reactive airway disease. ms3 11:21 Data reviewed: vital signs, nurses notes, lab test result(s), EKG, radiologic studies, ms3 and as a result, I will admit patient. Counseling: I had a detailed discussion with the patient and/or guardian regarding: the historical points, exam findings, and any diagnostic results supporting the discharge/admit diagnosis, lab results, radiology results, the need for further work-up and treatment in the hospital. ED course: Discussed case with Hospitalist and Dr Sumner accepts patient. Patient with continued wheezing and SOB. RA O2 saturation 98% at this time. . 06/15 09:33 Order name: Basic Metabolic Panel; Complete Time: 10:25 ms3 06/15 09:33 Order name: CBC with Diff; Complete Time: 13:33 ms3 06/15 09:33 Order name: Magnesium; Complete Time: 10:25 ms3 06/15 09:33 Order name: NT PRO-BNP; Complete Time: 10:25 ms3 06/15 09:33 Order name: Troponin HS; Complete Time: 10:25 ms3 06/15 10:36 Order name: SARS RAPID; Complete Time: 11:52 ms3 06/15 09:33 Order name: XRAY Chest (1 view); Complete Time: 11:18 ms3 06/15 09:33 Order name: EKG; Complete Time: 09:33 ms3 06/15 12:02 Order name: CBC Smear Scan; Complete Time: 13:33 EDMS 06/15 09:33 Order name: Cardiac monitoring; Complete Time: 09:43 ms3 06/15 09:33 Order name: EKG - Nurse/Tech; Complete Time: 09:43 ms3 06/15 09:33 Order name: IV Saline Lock; Complete Time: 09:33 ms3 06/15 09:33 Order name: Labs collected and sent; Complete Time: 09:33 ms3 06/15 09:33 Order name: O2 Per Protocol; Complete Time: 09:41 ms3 06/15 09:33 Order name: O2 Sat Monitoring; Complete Time: 09:41 ms3 06/15 13:21 Order name: CONS Physician Consult EDMS EC:44 Rate is 123 beats/min. Rhythm is regular. QRS [place] is Normal. MI interval is normal. ms3 QRS interval is normal. Clinical impression: Sinus tachycardia. Interpreted by me. Reviewed by me. Administered Medications: 09:41 Drug: Albuterol - atroVENT (ipratropium) (3:1) (2.5 mg - 0.5 mg) 3 ml Route: Nebulizer; ld1 11:28 Follow up: Response: No adverse reaction; Wheezing unchanged kc6 09:41 Drug: SOLU-Medrol (methylPrednisoLONE) 125 mg Route: IVP; Site: right antecubital; ld1 11:28 Follow up: Response: No adverse reaction kc6 09:41 Drug: Magnesium Sulfate 1 grams Route: IVPB; Infused Over: 1 hrs; Site: right wrist; ld1 11:28 Follow up: Response: No adverse reaction; IV Status: Completed infusion kc6 10:50 Drug: Benadryl (diphenhydrAMINE) 25 mg Route: IVP; Site: right antecubital; kc6 11:28 Follow up: Response: No adverse reaction kc6 11:28 Drug: Albuterol 2.5 mg Route: Inhalation; kc6 Disposition: 11:21 Critical Care:. ms3 Disposition Summary: 06/15/22 11:20 Hospitalization Ordered Hospitalization Status: Inpatient Admission ms3 Provider: Matt Sumner ms3 Location: Telemetry/MedSurg (Inpatient) ms3 Condition: Stable ms3 Problem: new ms3 Symptoms: are unchanged ms3 Bed/Room Type: Standard ms3 Room Assignment: 221(06/15/22 13:26) dw Diagnosis - Unspecified asthma with (acute) exacerbation ms3 - Tachypnea, not elsewhere classified ms3 - Elevated blood-pressure reading, without diagnosis of hypertension ms3 Forms: - Medication Reconciliation Form ms3 - SBAR form ms3 Critical care time excluding procedures: 11:21 Critical care time: Bedside Care: 35 minutes, Consultation: 10 minutes, Family ms3 Intervention: 10 minutes. Total time: 55 minutes Signatures: Dispatcher [employer] Susan Anderson RN Nicolasa Palm RN Alf Yeboah, DO ms3 Johanne Macias RN RN ld1 Ciara Martinez RN RN kc6 Corrections: (The following items were deleted from the chart) 13:26 11:20 ms3 dw
--- NOTE | 2022-06-15 11:21 | ER ---
Nurse's Notes [facility] Name: Blaze Aragon Age: 41 yrs Sex: Female : 1980 Arrival Date: 06/15/2022 Time: 09:21 Bed 6 Private MD: Hilario Camarena Diagnosis: Unspecified asthma with (acute) exacerbation;Tachypnea, not elsewhere classified;Elevated blood-pressure reading, without diagnosis of hypertension Presentation: 06/15 09:28 Chief complaint: Patient states: all night, hx of asthma, has been doing her iw breathing treatments every couple hours, no improvement , c/o pain in her ribs and cough/congestion, had a cold two weeks ago. Coronavirus screen: Client presents with at least one sign or symptom that may indicate coronavirus-19. Ebola Screen: Patient negative for fever greater than or equal to 101.5 degrees Fahrenheit, and additional compatible Ebola Virus Disease symptoms Patient denies exposure to infectious person. Patient denies travel to an Ebola-affected area in the 21 days before illness onset. No symptoms or risks identified at this time. Initial Sepsis Screen: Does the patient meet any 2 criteria? No. Patient's initial sepsis screen is negative. Does the patient have a suspected source of infection? No. Patient's initial sepsis screen is negative. Risk Assessment: Do you want to hurt yourself or someone else? Patient reports no desire to harm self or others. Onset of symptoms was June 15, 2022. 09:28 Method Of Arrival: Wheelchair iw 09:28 Acuity: INDU 3 iw Triage Assessment: 09:49 Respiratory: kc6 14:01 Respiratory: Onset: The symptoms/episode began/occurred yesterday. kc6 Historical: - Allergies: 09:31 No Known Allergies; iw - PMHx: :31 Asthma; Chiari malformation; connective tissue disorder; iw - Immunization history:: Client reports receiving the 2nd dose of the Covid vaccine, Flu vaccine is not up to date. - Social history:: Smoking status: Patient denies any tobacco usage or history of. Screenin:45 [facility] ED Fall Risk Assessment (Adult) History of falling in the last 3 months, kc6 including since admission No falls in past 3 months (0 pts) Confusion or Disorientation No (0 pts) Intoxicated or Sedated No (0 pts) Impaired Gait No (0 pts) Mobility Assist Device Used No (0 pt) Altered Elimination No (0 pt) Score/Fall Risk Level 0 - 2 = Low Risk. Abuse screen: Denies threats or abuse. Denies injuries from another. Nutritional screening: No deficits noted. Tuberculosis screening: No symptoms or risk factors identified. Assessment: 09:46 General: Appears distressed, uncomfortable, Behavior is calm, cooperative, appropriate kc6 for age. Pain: Denies pain. Neuro: Fajardo Agitation-Sedation Scale (RASS): 0 - Alert and Calm Level of Consciousness is awake, alert, obeys commands, Oriented to person, place, time, situation, Appropriate for age. Cardiovascular: Heart tones S1 S2 present Capillary refill < 3 seconds Rhythm is sinus rhythm with PACs. Respiratory: Reports shortness of breath cough that is productive, labored breathing Airway is patent Trachea midline Respiratory effort is even, labored, Respiratory pattern is symmetrical, tachypnea Breath sounds with wheezes bilaterally. GI: No signs and/or symptoms were reported involving the gastrointestinal system. : No signs and/or symptoms were reported regarding the genitourinary system. EENT: No signs and/or symptoms were reported regarding the EENT system. Derm: No signs and/or symptoms reported regarding the dermatologic system. Skin is intact, Skin is pink, warm \T\ dry. Musculoskeletal: No signs and/or symptoms reported regarding the musculoskeletal system. Circulation, motion, and sensation intact. Capillary refill < 3 seconds, Range of motion: intact in all extremities. 10:36 Reassessment: Patient appears in no apparent distress at this time. No changes from kc6 previously documented assessment. Patient and/or family updated on plan of care and expected duration. Pain level reassessed. Patient is alert, oriented x 3, equal unlabored respirations, skin warm/dry/pink. Patient denies pain at this time. 11:13 Reassessment: Patient appears in no apparent distress at this time. No changes from kc6 previously documented assessment. Patient and/or family updated on plan of care and expected duration. Pain level reassessed. Patient is alert, oriented x 3, equal unlabored respirations, skin warm/dry/pink. expiratory wheezes audible without stethescope. Patient denies pain at this time. 12:13 Reassessment: Patient appears in no apparent distress at this time. No changes from kc6 previously documented assessment. Patient and/or family updated on plan of care and expected duration. Pain level reassessed. Patient is alert, oriented x 3, equal unlabored respirations, skin warm/dry/pink. Patient denies pain at this time. 13:13 Reassessment: Patient appears in no apparent distress at this time. No changes from kc6 previously documented assessment. Patient and/or family updated on plan of care and expected duration. Pain level reassessed. Patient is alert, oriented x 3, equal unlabored respirations, skin warm/dry/pink. attempted to call report to second floor. stated the nurse is at lunch and will call me back in 15min. Patient denies pain at this time. Vital Signs: 09:30 BP 137 / 82; Pulse 124; Resp 30 S; Temp 97.9(O); Pulse Ox 99% on R/A; iw 10:36 BP 137 / 72; Pulse 114; Resp 27 S; Pulse Ox 99% on R/A; kc6 12:34 BP 176 / 81; Pulse 90; Resp 20 S; Pulse Ox 93% on R/A; Pain 0/10; kc6 13:37 BP 135 / 75; Pulse 117; Resp 19 S; Temp 97.8(O); Pulse Ox 90% on R/A; Pain 0/10; kc6 ED Course: 09:21 Patient arrived in ED. mr 09:21 Hilario Camarena MD is Private Physician. mr 09:28 Alf Mora DO is Attending Physician. ms3 09:30 Triage completed. iw 09:31 Arm band placed on. iw 09:33 Inserted saline lock: 20 gauge in right antecubital area, using aseptic technique. ld1 Blood collected. 09:34 Ciara Martinez, NAILA is Primary Nurse. kc6 09:47 Patient has correct armband on for positive identification. Placed in gown. Bed in low kc6 position. Call light in reach. Side rails up X2. 10:11 XRAY Chest (1 view) In Process Unspecified. EDMS 11:20 Matt Sumner MD is Hospitalizing Provider. ms3 14:00 No provider procedures requiring assistance completed. Patient admitted, IV remains in kc6 place. Administered Medications: 09:41 Drug: Albuterol - atroVENT (ipratropium) (3:1) (2.5 mg - 0.5 mg) 3 ml Route: Nebulizer; ld1 11:28 Follow up: Response: No adverse reaction; Wheezing unchanged kc6 09:41 Drug: SOLU-Medrol (methylPrednisoLONE) 125 mg Route: IVP; Site: right antecubital; ld1 11:28 Follow up: Response: No adverse reaction kc6 09:41 Drug: Magnesium Sulfate 1 grams Route: IVPB; Infused Over: 1 hrs; Site: right wrist; ld1 11:28 Follow up: Response: No adverse reaction; IV Status: Completed infusion kc6 10:50 Drug: Benadryl (diphenhydrAMINE) 25 mg Route: IVP; Site: right antecubital; kc6 11:28 Follow up: Response: No adverse reaction kc6 11:28 Drug: Albuterol 2.5 mg Route: Inhalation; kc6 Medication: 14:01 VIS not applicable for this client. kc6 Outcome: 11:20 Decision to Hospitalize by Provider. ms3 14:00 Admitted to Med/surg accompanied by tech, family with patient, via wheelchair, room kc6 221, with oxygen, with chart, Report called to NAILA Bazan 14:00 Condition: stable 14:00 Instructed on the need for admit. 14:38 Patient left the ED. jd3 Signatures: Dispatcher [employer] Johana Husain Irene RN Nahun Garcia RN RN jd3 Alf Mora DO DO ms3 Johanne Macias RN RN ld1 Ciara Martinez RN RN kc6 Corrections: (The following items were deleted from the chart) 09:41 09:30 BP 137 / 82; Pulse 124bpm; Resp 30bpm; Spontaneous; Pulse Ox 99% RA; iw iw
[2022-06-15 11:44] LABS: SARS-CoV-2 Antigen Rapid Res Negative (Negative)
[2022-06-15 12:02] LABS: Anisocytosis SLIGHT; Blood Morphology Comment NOTED (NOT SEEN); Hypochromasia 1+; Platelet Estimate ADEQ; Poikilocytosis SLIGHT; White Blood Cell Scan OK (OK)
[2022-06-15] MEDS ORDERED: ACETAMINOPHEN 325 MG TABLET PO PRN (13:20)
[2022-06-15] MEDS ORDERED: ONDANSETRON 4 MG/2 ML VIAL IV PRN (13:22)
--- NOTE | 2022-06-15 13:55 | P.HP ---
Certification for Inpatient Patient admitted to: Inpatient With expected LOS: >2 Midnights Patient will require the following post-hospital care: None Practitioner: I am a practitioner with admitting privileges, knowledge of patient current condition, hospital course, and medical plan of care. Services: Services provided to patient in accordance with Admission requirements found in Title 42 Section 412.3 of the Code of Federal Regulations Patient History Date of Service: 06/15/22 Reason for admission: SOB History of Present Illness: Patient is a 41-year-old female with a past medical history significant for asthma, Chiari malformation, connective tissue disorder, morbid obesity who presents with complaint of shortness of breath that has been ongoing for the past 3 weeks but became worse yesterday Patient reported associated signs and symptoms of cough, chest tightness and wheezing. Patient denies any other signs and symptoms. Symptoms are aggravated by exertion and relieved by nothing.. Patient decided to present to the hospital due to worsening symptoms. Allergies No Known Allergies Allergy (Unverified 06/15/22 13:35) - Past Medical/Surgical History -: Asthma -: Chiari malformation. -: Connective tissue disease. -: Morbid obesity Past Surgical History: Reviewed- Non-Contributory - Family History Family History: Reviewed- Non-Contributory - Social History Smoking Status: Never smoker Alcohol use: No CD- Drugs: No Caffeine use: Yes Place of Residence: Home (We will) Review of Systems General: Unremarkable Eyes: Unremarkable ENT: Unremarkable Respiratory: Cough, Shortness of Breath, SOB with Excertion, Wheezing, Other (Chest tightness) Cardiovascular: Unremarkable Gastrointestinal: Unremarkable Genitourinary: Unremarkable Integumentary: Unremarkable Lymphatics: Unremarkable Physical Examination - Physical Exam General: Alert, In no apparent distress, Oriented x3 HEENT: Atraumatic, PERRLA, Mucous membr. moist/pink, EOMI, Sclerae nonicteric Neck: Supple, 2+ carotid pulse no bruit, No LAD, Without JVD or thyroid abnormality Respiratory: Diminished, Expiratory wheezes, Inspiratory wheezes Cardiovascular: No edema, Regular rate/rhythm, Normal S1 S2 Capillary refill: <2 Seconds Gastrointestinal: Normal bowel sounds, Non-distended, Tenderness Musculoskeletal: No clubbing, No swelling, No contractures, No tenderness Integumentary: No rashes, No breakdown, No significant lesion, No erythema, No warmth Neurological: Normal speech, Normal tone, Normal affect Lymphatics: No axilla or inguinal lymphadenopathy - Studies Laboratory Data (last 24 hrs) 06/15/22 09:43: WBC 7.90, Hgb 10.9 L, Hct 35.1 L, Plt Count 342 06/15/22 09:43: Sodium 136, Potassium 4.2, BUN 11, Creatinine 1.02, Glucose 199 H, Magnesium 1.9 Assessment and Plan - Plan --Severe persistent asthma with exacerbation. Pulmonology consulted. Patient placed on steroids, neb treatment with albuterol\Atrovent. Continue O2 therapy. We will further recommendation from physicist acoustics. CTA PE protocol to rule out PE. Continue supportive care --History of Chiari malformation\connective tissue disorder. Continue sup portive care. --Morbid obesity. Likely secondary to excess calories and sedentary lifestyle. Patient counseled on weight reduction, diet and excise therapy. --Anemia of chronic disease. H&H stable. Continue to monitor hemoglobin and transfuse if less than 7.0. --Prediabetes. Patient counseled on diet and excise therapy. --CKD 2. Stable. Continue to monitor renal functions. --UTI POA. Patient placed on antibiotics. Urine cultures pending. --DVT prophylaxis with Lovenox subQ.- Discharge Plan: Home Plan to discharge in: Greater than 2 days - Advance Directives Does patient have a Living Will: No Does patient have a Durable POA for Healthcare: No - Code Status/Comfort Care Code Status Assessed: Yes Physician Review: Patient Assessed, Agree with Above Assessment and Plan Critical Care: No
[2022-06-15] MEDS: IPRATROPIUM BROM 0.5MG/2.5ML NEB SCH ×2 (14:49→20:40)
[2022-06-15] MEDS: ALBUTEROL 2.5 MG/3 ML NEB SOL NEB SCH ×2 (14:49→20:00)
--- NOTE | 2022-06-15 15:14 | EKG ---
Test Date: 2022-06-15 Test Time: 09:39:56 Yard Person: JUSTINA MEASUREMENT RESULTS: Intervals: Rate: 123 WV: 136 QRSD: 70 QT: 282 QTc: 403 [place]: P: 74 WV: 136 QRS: 72 T: -5 INTERPRETIVE STATEMENTS: Sinus tachycardia with occasional premature ventricular complexes Nonspecific T wave abnormality Abnormal ECG Compared to ECG 08/12/2010 11:23:35 Ventricular premature complex(es) now present T-wave abnormality now present Sinus rhythm no longer present Electronically Signed On 06-15-22 15:14:18 DOUBLE BACK OPERATOR by De Slaughter
[2022-06-15 15:38] VITALS: BMI 40.9
[2022-06-15 15:54] LABS: Phosphorus 1.7 mg/dL (2.5-4.9); Thyroid Stimulating Hormone 0.607 uIU/mL (0.358-3.740)
[2022-06-15] MEDS: METHYLPREDNISOLONE 40 MG INJ IV SCH (16:58)
[2022-06-15] MEDS: HYDROCODONE/APAP 5/325 MG TAB PO PRN (16:58)
[2022-06-15 17:55] LABS: Specific Gravity 1.029 (1.005-1.030); Urine Bacteria None Seen /HPF (<20); Urine Bilirubin NEGATIVE (Negative); Urine Blood Negative (Negative); Urine Clarity Clear (Clear); Urine Color Light-Yellow (Yellow); Urine Glucose 4+ (Over) (Negative); Urine Protein TRACE (Negative); Urine Urobilinogen Normal (Normal)
[2022-06-15] MEDS ORDERED: CEFTRIAXONE 1000 MG/VIAL ONE (21:14)
[2022-06-15] MEDS: ENOXAPARIN 40 MG/0.4 ML SQ SCH (21:16)
[2022-06-15] MEDS ORDERED: NA CHLORIDE 0.9% 100 ML ONE (21:16)
[2022-06-15] MEDS: CEFTRIAXONE 1,000 MG in NA CHLORIDE 0.9% 50 ML IVPB SCH (21:17)
[2022-06-15] MEDS: BENZONATATE 100 MG CAP PO PRN (22:06)
[2022-06-16] MEDS: METHYLPREDNISOLONE 40 MG INJ IV SCH ×3 (01:11→17:00)
[2022-06-16] MEDS: ALBUTEROL 2.5 MG/3 ML NEB SOL NEB SCH ×4 (02:15→21:15)
[2022-06-16] MEDS: IPRATROPIUM BROM 0.5MG/2.5ML NEB SCH ×4 (02:15→21:15)
[2022-06-16 03:59] LABS: Absolute Lymphocytes (CBC) 0.5 K/uL (0.7-4.9); Lymphocytes % 3.7 % (15.3-44.8); MCV 70.6 fL (80-100); MPV 8.3 fL (7.6-11.3); RBC Red Blood Cell Count 4.82 M/uL (3.86-4.86)
[2022-06-16 04:08] LABS: Potassium 4.8 mmol/L (3.5-5.1)
[2022-06-16 04:38] LABS: Phosphorus 2.3 mg/dL (2.5-4.9)
[2022-06-16 05:07] LABS: Blood Morphology Comment NOT SEEN (NOT SEEN); Platelet Estimate ADEQ
[2022-06-16] MEDS: POTASS/SODIUM PHOSPHATE 1 PKT POWD.PACK PO SCH ×3 (06:53→09:22)
[2022-06-16] MEDS ORDERED: INFLUENZA VACCINE (for 6+ mo) 0.5 ML DOSE IMVAC ONE (08:00)
[2022-06-16] MEDS: ENOXAPARIN 40 MG/0.4 ML SQ SCH (09:21)
[2022-06-16] MEDS: ASPIRIN 81 MG CHEWABLE TABLET PO SCH (09:22)
[2022-06-16 15:12] LABS: RBC Red Blood Cell Count 5.11 M/uL (3.86-4.86)
[2022-06-16] MEDS: CETIRIZINE HCL 5 MG TABLET PO SCH (16:59)
[2022-06-16] MEDS: SOD FERRIC GLUC COMPLX/SUCROSE 125 MG in NA CHLORIDE 0.9% 100 ML IV SCH (16:59)
[2022-06-16] MEDS: CEFTRIAXONE 1,000 MG in NA CHLORIDE 0.9% 50 ML IVPB SCH (17:00)
[2022-06-16] MEDS: FLUTICASONE 50MCG NASAL SPRAY NAS SCH (17:00)
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
[2022-06-16] MEDS: SULFASALAZINE 500 MG E.C. TAB PO SCH (20:12)
[2022-06-16] MEDS: HYDROCODONE/APAP 5/325 MG TAB PO PRN (20:13)
[2022-06-16] MEDS: DULOXETINE 30 MG CAP PO SCH (20:13)
[2022-06-16] MEDS: BENZONATATE 100 MG CAP PO PRN (20:13)
[2022-06-16] MEDS: HYDROXYCHLOROQUINE 200MG TAB PO SCH (20:56)
[2022-06-16] MEDS: HYDROXYZINE HCL 10 MG PO SCH (20:57)
[2022-06-17] MEDS: METHYLPREDNISOLONE 40 MG INJ IV SCH ×2 (00:07→09:52)
[2022-06-17] MEDS: IPRATROPIUM BROM 0.5MG/2.5ML NEB SCH ×4 (02:10→19:30)
[2022-06-17] MEDS: ALBUTEROL 2.5 MG/3 ML NEB SOL NEB SCH ×4 (02:10→19:30)
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
[2022-06-17] MEDS: FLUTICASONE 50MCG NASAL SPRAY NAS SCH ×2 (08:47→22:32)
[2022-06-17] MEDS: POTASS/SODIUM PHOSPHATE 1 PKT POWD.PACK PO SCH ×3 (08:48→10:44)
[2022-06-17] MEDS: MONTELUKAST 10 MG TAB PO SCH (08:49)
[2022-06-17] MEDS: CETIRIZINE HCL 5 MG TABLET PO SCH (08:49)
[2022-06-17] MEDS: DULOXETINE 30 MG CAP PO SCH ×2 (08:49→22:33)
[2022-06-17] MEDS: ASPIRIN 81 MG CHEWABLE TABLET PO SCH (08:49)
[2022-06-17] MEDS: SULFASALAZINE 500 MG E.C. TAB PO SCH ×2 (08:50→22:34)
[2022-06-17] MEDS: ENOXAPARIN 40 MG/0.4 ML SQ SCH (08:50)
[2022-06-17] MEDS: HYDROXYCHLOROQUINE 200MG TAB PO SCH ×2 (08:50→22:34)
[2022-06-17] MEDS: SOD FERRIC GLUC COMPLX/SUCROSE 125 MG in NA CHLORIDE 0.9% 100 ML IV SCH (10:44)
[2022-06-17 11:28] LABS: Hematocrit 33.9 % (36.0-45.0); Lymphocytes % 5.4 % (15.3-44.8); MCV 70.4 fL (80-100); MPV 7.7 fL (7.6-11.3); RBC Red Blood Cell Count 4.81 M/uL (3.86-4.86)
[2022-06-17] MEDS: BENZONATATE 100 MG CAP PO PRN ×2 (12:28→22:33)
--- NOTE | 2022-06-17 13:41 | P.CNS ---
Date of Consult: 06/17/22 Reason for Consult: Asthma exacerbation Chief Complaint: SOB History of Present Illness: Patient is 41 years of age has been sick for about 3 weeks history of asthma mated with cough shortness of breath hypoxemia wheezing prior to this she has had asthma mostly exercise-induced using short acting bronchodilators on a as needed basis usually asthma is aggravated by cold weather less of dyspnea on exertion is not feeling any better Allergies No Known Allergies Allergy (Unverified 06/15/22 13:35) Home Medications: Duloxetine HCl [Cymbalta] 30 mg PO BID 06/16/22 Hydroxychloroquine [Plaquenil*] 200 mg PO BID 06/16/22 Hydroxyzine HCl [Atarax] 10 mg PO BEDTIME 06/16/22 Montelukast Sodium [Singulair] 10 mg PO DAILY 06/16/22 sulfaSALAzine [Azulfidine] 3 tab PO BID 06/16/22 - Past Medical/Surgical History Diabetic: No -: Asthma -: Chiari malformation. -: Connective tissue disease. -: Morbid obesity -: X2 -: fibroma -: decompression/ revision surgery - Social History Alcohol use: No CD- Drugs: No Caffeine use: Yes Place of Residence: Home (We will) Review of Systems 10-point ROS is otherwise unremarkable Physical Examination Temp Pulse Resp BP Pulse Ox 97.1 F 100 H 16 108/52 L 96 06/17/22 12:00 06/17/22 12:00 06/17/22 12:00 06/17/22 12:00 06/17/22 12:00 General: Alert, In no apparent distress Neck: Supple, JVD not distended Respiratory: Clear to auscultation bilaterally, Normal air movement Cardiovascular: No edema, Regular rate/rhythm, Normal S1 S2 Gastrointestinal: Normal bowel sounds, Soft and benign - Problems (1) Asthma exacerbation Current Visit: Yes Status: Acute Plan: Patient is 41 years of age with a history of mild intermittent asthma precipitated by cold weather and exertion she does use a short acting bronchodilator on a as needed basis has been sick for about 3 weeks nocturnal sleep disturbance associated with significant desat. To the hospital she is currently stable and experiencing desaturation on mild exertion globe changer to p.o. Zithromax for his anti-inflammatory properties globe changer to p.o. prednisone new with bronchodilators of also added Dulera evaluate daily room air saturation possible discharge tomorrow Qualifiers: Asthma severity: severe
[2022-06-17] MEDS: DULERA 200/5 (MOMETASONE/FORMOTEROL) INHALER IH SCH ×2 (14:23→22:33)
[2022-06-17] MEDS: AZITHROMYCIN 250 MG TAB PO SCH (14:24)
[2022-06-17] MEDS: HYDROXYZINE HCL 10 MG PO SCH (21:00)
[2022-06-17] MEDS: predniSONE 20 MG TAB PO SCH (22:33)
[2022-06-17] MEDS: HYDROCODONE/APAP 5/325 MG TAB PO PRN (22:34)
[2022-06-18] MEDS: IPRATROPIUM BROM 0.5MG/2.5ML NEB SCH ×2 (00:20→08:15)
[2022-06-18] MEDS: ALBUTEROL 2.5 MG/3 ML NEB SOL NEB SCH ×2 (00:20→08:15)
[2022-06-18 00:56] VITALS: TEMP 97
[2022-06-18 03:59] LABS: Absolute Lymphocytes (CBC) 1.4 K/uL (0.7-4.9); Lymphocytes % 9.2 % (15.3-44.8); MCV 70.5 fL (80-100); MPV 8.2 fL (7.6-11.3); RBC Red Blood Cell Count 4.69 M/uL (3.86-4.86)
[2022-06-18 04:12] LABS: C-Reactive Protein 4.23 mg/L (<3.00); Potassium 5.2 mmol/L (3.5-5.1)
--- NOTE | 2022-06-18 07:45 | RAD REPORT ---
EXAM DESCRIPTION: RAD - Chest Single View - 06/18/2022 5:24 am CLINICAL HISTORY: SOB COMPARISON: Chest Single View dated 06/15/2022; CHEST SINGLE VIEW dated 06/13/2011; CHEST PA AND LAT 2 VIEW dated 06/12/2008; CHEST PA AND LAT 2 VIEW dated 04/08/2004 FINDINGS: Lines: None. Lungs: No evidence of edema or pneumonia. Pleural: No significant pleural effusions or pneumothorax. Cardiac: The heart size is within normal limits. Mediastinum: Within normal limits. Bones: No acute fractures. Other: None IMPRESSION: No acute cardiopulmonary disease.
[2022-06-18 08:14] VITALS: BP 138/66
[2022-06-18] MEDS: DULERA 200/5 (MOMETASONE/FORMOTEROL) INHALER IH SCH (08:45)
[2022-06-18] MEDS: FLUTICASONE 50MCG NASAL SPRAY NAS SCH (08:45)
[2022-06-18] MEDS: SULFASALAZINE 500 MG E.C. TAB PO SCH (08:46)
[2022-06-18] MEDS: HYDROXYCHLOROQUINE 200MG TAB PO SCH (08:46)
[2022-06-18] MEDS: ENOXAPARIN 40 MG/0.4 ML SQ SCH (08:47)
[2022-06-18] MEDS: CETIRIZINE HCL 5 MG TABLET PO SCH (08:47)
[2022-06-18] MEDS: DULOXETINE 30 MG CAP PO SCH (08:47)
[2022-06-18] MEDS: ASPIRIN 81 MG CHEWABLE TABLET PO SCH (08:47)
[2022-06-18] MEDS: AZITHROMYCIN 250 MG TAB PO SCH (08:47)
[2022-06-18] MEDS: predniSONE 20 MG TAB PO SCH (08:47)
[2022-06-18] MEDS: MONTELUKAST 10 MG TAB PO SCH (08:47)
[2022-06-18] MEDS ORDERED: INFLUENZA VACCINE (for 6+ mo) 0.5 ML DOSE IMVAC ONE (09:00)
[2022-06-18 09:30] VITALS: O2SAT 95
--- NOTE | 2022-06-28 23:16 | P.DS ---
Admission Date: 06/15/22 Discharge Date: 06/18/22 Disposition: ROUTINE DISCHARGE Discharge Condition: GOOD Reason for Admission: VLADIMIR Consultations: Nikko Lu Brief History of Present Illness: 41-year-old female with a past medical history significant for asthma, Chiari malformation, connective tissue disorder, morbid obesity who presents with complaint of shortness of breath that has been ongoing for the past 3 weeks but became worse yesterday Patient reported associated signs and symptoms of cough, chest tightness and wheezing. Patient denies any other signs and symptoms. Symptoms are aggravated by exertion and relieved by nothing.. Patient decided to present to the hospital due to worsening symptoms. Hospital Course: Problem List Acute hypoxemic respiratory failure secondary to severe persistent asthma with exacerbation History of Chiari malformation, connective tissue disorder/autoimmune disorder Morbid obesity Anemia chronic disease, iron deficiency Prediabetic Improved with nebulizer treatments and steroids. Pulmonology evaluated the patient. CTA was negative for PE. Slept well with CPAP, which she was previously treated with for ANIYAH, however her home machine broke. Pulmonology started patient on a maintenance inhaler, and nebulizer medications and machine were prescribed. She was also noted to have iron deficiency anemia and received a few doses of IV iron while she was hospitalized. Discussed consideration for colonoscopy. Follow up with PCP to further discuss. She also reported heavy periods and GI issues which may contribute to lack of absorption. Vital Signs/Physical Exam: Temp Pulse Resp BP Pulse Ox 97.0 F 84 20 138/66 98 06/18/22 08:00 06/18/22 08:00 06/18/22 08:00 06/18/22 08:00 06/18/22 08:00 Physical exam GEN: Alert, oriented HEENT: Normal conjunctiva, sclera anicteric CV: intermittent sinus tachycardia, no edema Pulm: non-labored respirations; on room air ABD: Soft, nontender, nondistended Neuro: Normal speech, normal affect Laboratory Data at Discharge: WBC 15.00 K/uL (4.3-10.9) H 06/18/22 03:27 Hgb 10.3 g/dL (12.0-15.0) L 06/18/22 03:27 Hct 33.0 % (36.0-45.0) L 06/18/22 03:27 Plt Count 334 K/uL (152-406) 06/18/22 03:27 Sodium 133 mmol/L (136-145) L 06/18/22 03:27 Potassium 5.2 mmol/L (3.5-5.1) H 06/18/22 03:27 BUN 18 mg/dL (7-18) 06/18/22 03:27 Creatinine 1.02 mg/dL (0.55-1.02) 06/18/22 03:27 Glucose 287 mg/dL (74-106) H 06/18/22 03:27 Phosphorus 2.3 mg/dL (2.5-4.9) L 06/16/22 02:55 Magnesium 2.0 mg/dL (1.6-2.4) 06/15/22 14:56 Triglycerides 33 mg/dL (<150) 06/16/22 02:55 Cholesterol 174 mg/dL (<200) 06/16/22 02:55 HDL Cholesterol 74 mg/dL (40-60) H 06/16/22 02:55 Cholesterol/HDL Ratio 2.35 06/16/22 02:55 Home Medications: Duloxetine HCl [Cymbalta] 30 mg PO BID 06/16/22 Hydroxychloroquine [Plaquenil*] 200 mg PO BID 06/16/22 Hydroxyzine HCl [Atarax] 10 mg PO BEDTIME 06/16/22 Montelukast Sodium [Singulair] 10 mg PO DAILY 06/16/22 sulfaSALAzine [Azulfidine] 3 tab PO BID 06/16/22 Albuterol Neb [Proventil 0.083% Neb Soln] 1 vial IH Q8H PRN 30 Days #60 vial 06/18/22 Azithromycin 250 mg PO DAILY 4 Days #4 tab 06/18/22 Ipratropium Neb [Atrovent*] 1 vial IH Q8H PRN 30 Days #60 vial 06/18/22 Nebulizer [Truneb Nebulizer] 1 each MC DAILY PRN 90 Days #1 unit 06/18/22 predniSONE [Prednisone*] 20 mg PO SEECOM 7 Days #10 tab 06/18/22 New Medications: Ipratropium Neb [Atrovent*] 1 vial IH Q8H PRN 30 Days #60 vial PRN Reason: Shortness Of Breath Azithromycin 250 mg PO DAILY 4 Days #4 tab predniSONE [Prednisone*] 20 mg PO SEECOM 7 Days #10 tab Albuterol Neb [Proventil 0.083% Neb Soln] 1 vial IH Q8H PRN 30 Days #60 vial PRN Reason: Shortness Of Breath Nebulizer [Truneb Nebulizer] 1 each MC DAILY PRN 90 Days #1 unit PRN Reason: Shortness Of Breath Followup: Hilario Camarena MD [Primary Care Provider] - Time spent managing pt's care (in minutes): 45
== END 2022-06-18 10:57 | disposition home or self-care (01) | DRG 202 ==
LOC: ER 09:20 → ERHOLD 13:16 → 2ND 14:00
PROVIDERS: ADMIT Hospitalist; ATTEND Hospitalist
PROC: 5A09457 Assistance with Respiratory Ventilation, 24-96 Consecutive Hours, Continuous Positive Airway Pressure (ICD-10-PCS; principal; 2022-06-15)
DX: J45.51 Severe persistent asthma with (acute) exacerbation (principal); J96.01 Acute respiratory failure with hypoxia; Z68.41 Body mass index [BMI] 40.0-44.9, adult; N39.0 Urinary tract infection, site not specified; E66.01 Morbid (severe) obesity due to excess calories; D63.8 Anemia in other chronic diseases classified elsewhere; D50.9 Iron deficiency anemia, unspecified; N18.2 Chronic kidney disease, stage 2 (mild); D63.1 Anemia in chronic kidney disease; R73.03 Prediabetes; Z23 Encounter for immunization; Z79.52 Long term (current) use of systemic steroids; Z79.899 Other long term (current) drug therapy; Z20.822 Contact with and (suspected) exposure to COVID-19
CPT/HCPCS: 36415; 71045; 80048; 80061; 81001; 82607; 83036; 83540; 83735; 83880; 84100; 84145; 84439; 84443; 84466; 84484; 85025; 85044; 86140; 87811; 90471; 93005; 94640; 94660; 94760; 96365; 96366; 96375; 99285; J1200; J1650; J2916; J2920; J2930; J3475; J3535; J7512; J7613; J7644; Q0144; Q2035

== ENCOUNTER 2022-07-02 20:23 | Emergency (ER) | payer OTHER ==
--- OUTSIDE RECORDS SUMMARY | 2022-07-02 20:50 | XMS REPORT | Continuity of Care Document ---
:1980 Author Organization [facility] t Address [address] [place] [address] Care Team Providers Name Role Phone EBEN GUERRERO JR Primary Care Physician Unavailable UNKNOWN, ATTENDING Attending Clinician Unavailable CLARITA PEREZ Attending Clinician Unavailable Paola Crawford DO Attending Clinician Torey Zapata MD Attending Clinician Clarita Perez DO Attending Clinician PAOLA MEDEIROS Attending Clinician Unavailable Paola Naavrrete Attending Clinician Andres Cortez Attending Clinician Roberto Hannon DO Attending Clinician Therapy, [facility] Covid Infusion Attending Clinician Unavailable Renetta Meza NP Attending Clinician RENETTA MEZA Attending Clinician Unavailable Doctor Unassigned, [place] Attending Clinician Unavailable Amber Romero Attending Clinician Unknown, Attending Attending Clinician Unavailable Stephen Ernst [...] Number Effective Date Expiration Date John mortensen [facility] [id number] 2017 00:00:00 SELECT Problems Condition Condition Condition Status Onset Resolution Last Treating Co mments Source Name Details Category Date Date Treatment Clinician Date Asthma Asthma Disease Active 2020-06 Univers attacks attacks 1-21 ity of lasting lasting 00:00: [place] more than more than 00 [facility] 24 hours 24 hours Branch Obstructiv [...] nodule 2-09 ity of 00:00: [place] 00 [facility] Branch Allergic Allergic Disease Active Unive rs rhinitis rhinitis 1-11 ity of 00:00: [place] 00 [facility] Branch Crohn's Crohn's Disease Active Univers disease of disease of 1-05 it y of small small 00:00: [place] intestine intestine 00 [facility] Branch Impaired Impaired Disease Active Unive rs fasting fasting 1-05 ity of glucose glucose 00:00: [place] 00 [facility] Branch Chiari I Chiari I Disease Active Unive rs malformati malformati 4-08 it y of on on 00:00: [place] 00 [facility] Branch 348.4 - 348.4 - Diagnosis Active 2013-01-04 Memoria COMPRESSIO COMPRESSIO 5-03 21:42:00 l N OF N OF 00:01: [place] Active 00 10/27/2012 OPID [place] STICHES STICHES Diagnosis Active 2011-062012-04-19 Memoria DRAINING DRAINING 0-17 16:30:00 l Active 00:00: [place] 04/12/2012 00 [facility] LEAKING LEAKING Diagnosis Active 2011-062012-04-05 Memoria FROM FROM 0-10 13:44:00 l SURGERY SURGERY 00:00: [place] SITE SITE 00 Active 04/05/2012 [facility] WOUND LEAK WOUND Diagnosis Active 2011-062012-04-06 Memoria LEAK 0-10 14:39:00 l Active 00:00: [place] 04/05/2012 00 [facility] CHIARI CHIARI Diagnosis Active 2012-03-28 Ne moria MALFORMATI MALFORMATI 9- 09:43:00 l ON ON Active 00:00: [place] 02/29/2012 00 [facility] Asthma - Asthma - Problem Active 2012-12-06 Memoria currently currently 20:19:21 l dormant dormant [place] Active Problem 12/06/2012 [facility] SONIYA Fajardo Hiatal Hiatal Problem Active 2012-12-06 Mem oria hernia hernia 20:19:21 l Active [place] Problem 12/06/2012 [facility] SONIYA Fajardo Pain Pain Problem Active 2012-12-06 Memor ia Active 20:19:21 l Problem Irvin 12/06/2012 [facility] SONIYA Fajardo COMPRESSIO COMPRESSI Diagnosis Active 2012-03-28 Memoria N OF BRAIN ON OF 09:43:00 l BRAIN [place] Active [facility] WOUND WOUND Diagnosis Active 2012-04-06 Ne moria DISRUPTION DISRUPTION 14:39:00 l NOS NOS Active Fly n [facility] CEREBROSPI CEREBROSP Diagnosis Active 2012-04-19 Memoria NAL INAL 16:30:00 l RHINORRHEA RHINORRHEA He rmann Active [facility] History of Past Illness Condition Condition Condition Status Onset Resolution Last Treating Co mments Source Name Details Category Date Date Treatment Clinician Date Headache Headache Problem 2016-11-15 2016-11-15 Memoria 11/12/201611-12 04:03:18 04:03:18 l 11/15/2016 05:00: Fly plunkett Stormy 00 [facility] Allergies, Adverse Reactions, Alerts [...] Active Univers ALLERGIE Class ity of S [facility] [place] Social History Social Habit Start Date Stop Date Quantity Comments Source Exposure to Not sure [facility] SARS-CoV-2 [facility] (event) Branch Alcohol intake 2021-05-17 2021-05-17 Current University of 00:00:00 00:00:00 non-drinker of [facility] alcohol [place] (finding) Tobacco use and 2017-01-24 2017-01-24 Never used Universit y of exposure 00:00:00 00:00:00 [facility] [place] Sex Ass[birth year] At [birth year] Universit y of 00:00:00 00:00:00 [facility] [place] Smoking Status Start Date Stop Date Source Social History [facility] Medications Ordered Filled Start Stop Current Ordering Indication Dosage Frequency Signature Comments Components Source Medication Medication Date Date Medication? Clinician (SIG) Name Name Ariane- 2020-06 Yes 1{capsu Take 1 U nivers Acetaminoph 07-19 le} capsule by it y of en-Caff 17:50: mouth as [place] (FIORICET) 46 needed. Medica l 50-300-40 Branch mg per capsule hydroxychlo 2020-06 Yes 400mg Take 400 U nivers roquine 1-23 mg by ity of sulfate 17:50: mouth. [place] (HYDROXYCHL 46 Medical OROQUINE Branch ORAL) SULFASALAZI 2020-06 Yes 200mg Take 200 U nivers NE ORAL 1-23 mg by ity of 17:50: mouth 2 [place] 46 (two) Medical times Branch daily. 2 tab SULFADIAZIN 2020-06- Take by Un anupama E ORAL 07-19 [...] Cough. Indication s: cough ipratropium 2020-06 Yes [id number] 3mL Inhale 3 Univers -albuteroL 1-23 mL every 4 ity of 0.5 mg-3 00:00: (four) [place] mg(2.5 mg 00 hours as Medica l base)/3 mL needed for [facility] nebulizer Wheezing. solution sodium 2020-06 Yes [id number] 2{spray Use 2 Un anupama chloride 07-19 } Sprays in ity of 0.65 % 00:00: each [place] nasal spray 00 nostril as Me dical needed Branch (Nasal congestion ). predniSONE 2020-06- No [id number] Take 4 Univers 10 mg 07-19 12-06 [...] First dose [place] ) tablet [address] [facility] Medical 500 mg 05/18/21 Branch at 0800, Until Discontinu ed ondansetron 2020-06 Yes 4mg 4 mg, Slow Univers (ZOFRAN 07-18 IV Push, ity of (PF)) 07:11: Q6HPRN, [place] injection 4 05 Starting Medi jaya mg [...] dose Medi jaya NaCl 0.9% on Tue Branch (NS) 250 mL 05/18/21 VIAL-MATE at 0015, [...] 07-18 Oral, ity of PERLES) 04:13: TIDPRN, [place] capsule 100 12 Starting Medi jaya mg on Sun Branch 05/17/21 at 2213, Until Discontinu ed, Routine, Cough albuterol 2020-06 Yes 2.5mg 2.5 mg, Univ ers (PROVENTIL) 07-18 Inhalation it y of 2.5 mg /3 01:00: , Q4H, [place] mL (0.083 00 First dose Medi jaya %) (after Branch nebulizer last solution modificati 2.5 mg on) on 05/17/21 at 1900, Until Discontinu ed, HONG budesonide 2020-06 Yes .5mg 0.5 mg, [facility] ers (PULMICORT 07-18 Inhalation ity of RESPULE) 01:00: , BID, [place] nebulizer 00 First dose Medi jaya solution on Sun Branch 0.5 mg 05/17/21 at 1900, Until Discontinu ed, Routine
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 Restricted medication : TOREY ZAPATA ipratropium 2020-06 3mL 3 mL, Univ ers -albuteroL 07-1823 Inhalation it y of (DUONEB) 00:46: 00:45 [...] at 1630, mg HONG methylpredn 2020-06 No [id number] 125mg Univers isolone sod 07-17 ity of succ 22:00: 21:36 [place] (SOLU-MEDRO 00 :00 Medical L) Branch injection 125 mg methylpredn 2020-06- No [id number] 125mg 125 mg, Univers isolone sod 07-17 Intramuscu i ty of succ 22:00: 21:36 lar, ONCE, [place] (SOLU-MEDRO 00 :00 1 dose, On Me dical L) Sun Branch injection 05/17/21 125 mg at 1600, Routine methylpredn 2020-06- No [id number] 125mg Univers isolone sod 07-17 ity of succ 22:00: 21:36 [place] (SOLU-MEDRO 00 :00 Medical L) Branch injection 125 mg bamlanivima 2020- No 700mg 700 mg, IV Univers b (EUA) 700 07-29 Infusion, it y of mg in NaCl 19:00: 20:10 ONCE, [place] 0.9% (NS) 00 :00 07/29/20 at Medic al 270 mL 1300, For Branch infusion 1 dose
Ad director of materials as an IV infusion over 60 minutes [...] 1300, For Branch infusion 1 dose
Ad director of materials as an IV infusion over 60 minutes [...] :00 Infusion, Medical ONCE, 1 Branch dose, [facility] 07/24/20 at 1645, STAT diphenhydrA 2020- No 25mg 25 mg, Uni vers MINE 07-24 Slow IV ity of (BENADRYL) 22:45: 22:03 Push, [place] injection 00 :00 ONCE, 1 Medical 25 mg dose, [facility] Branch 07/24/20 at 1645, STAT metoclopram 2020- No 10mg 10 mg, Uni vers joanna HCl 07-24 Slow IV ity of (REGLAN) 22:45: 22:03 Push, [place] injection 00 :00 ONCE, 1 Medical 10 mg dose, [facility] Branch 07/24/20 at 1645, HONG ketorolac 2020- No 30mg 30 mg, Unive rs (TORADOL) 07-24 Slow IV ity of injection 22:45: 22:03 Push, [place] 30 mg 00 :00 ONCE, 1 Medical dose, [facility] Branch 07/24/20 at 1645, Routine
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 albuterol Yes [id number] 2{puff} Inhale 2-4 Univers 90 07-24 Puffs ity of mcg/actuati 00:00: every 4 Maninder as on inhaler 00 (four) Medical hours as Branch needed for Wheezing or Shortness of Breath. benzonatate 2020-0 Yes [id number] 100mg Take 1 Univers 100 mg 1-28 capsule by ity of capsule 00:00: mouth 3 (three) Medical times Branch daily as needed for Cough. dexAMETHaso 2020-0 Yes [id number] 4mg Take 1 Univers ne 4 mg 1-28 tablet by ity of tablet 00:00: mouth [place] 00 daily. Medical Branch albuterol 2020-0 Yes [id number] 2{puff} Inhale 2-4 Univers 90 1-28 Puffs ity of mcg/actuati 00:00: every 4 Maninder as on inhaler 00 (four) Medical hours as Branch needed for Wheezing or Shortness of Breath. benzonatate 2020-0 Yes [id number] 100mg Take 1 Univers 100 mg 1-28 capsule by ity of capsule 00:00: mouth 3 (three) Medical times Branch daily as needed for Cough. dexAMETHaso 2020-0 Yes [id number] 4mg Take 1 Univers ne 4 mg 1-28 tablet by ity of tablet 00:00: mouth [place] 00 daily. Medical Branch albuterol 2020-0 Yes [id number] 2{puff} Inhale 2-4 Univers 90 1-28 Puffs ity of mcg/actuati 00:00: every 4 Maninder as on inhaler 00 (four) Medical hours as Branch needed for Wheezing or Shortness of Breath. benzonatate 2020-0 Yes [id number] 100mg Take 1 Univers 100 mg 1-28 capsule by ity of capsule 00:00: mouth 3 (three) Medical times Branch daily as needed for Cough. dexAMETHaso 2020-0 Yes [id number] 4mg Take 1 Univers ne 4 mg 1-28 tablet by ity of tablet 00:00: mouth [place] 00 daily. Medical Branch albuterol 2020-0 Yes [id number] 2{puff} Inhale 2-4 Univers 90 1-28 Puffs ity of mcg/actuati 00:00: every 4 Maninder as on inhaler 00 (four) Medical hours as Branch needed for Wheezing or Shortness of Breath. benzonatate 2020-0 Yes [id number] 100mg Take 1 Univers 100 mg 1-28 capsule by ity of capsule 00:00: mouth 3 (three) Medical times Branch daily as needed for Cough. dexAMETHaso Yes [id number] 4mg Take 1 Univers ne 4 mg 1-28 tablet by ity of tablet 00:00: mouth [place] 00 daily. Medical Branch albuterol Yes [id number] 2{puff} Inhale 2-4 Univers 90 1-28 Puffs ity of mcg/actuati 00:00: every 4 Maninder as on inhaler 00 (four) Medical hours as Branch needed for Wheezing or Shortness of Breath. benzonatate Yes [id number] 100mg Take 1 Univers 100 mg 1-28 capsule by ity of capsule 00:00: mouth 3 00 (three) Medical times Branch daily as needed for Cough. dexAMETHaso Yes [id number] 4mg Take 1 Univers ne 4 mg 1-28 tablet by ity of tablet 00:00: mouth [place] 00 daily. Medical Branch benzonatate Yes [id number] 100mg Take 1 Univers 100 mg 1-28 capsule by ity of capsule 00:00: mouth 3 (three) Medical times Branch daily as needed for Cough. albuterol 2020- No [id number] 2{puff} Inhale 2-4 Univers 90 1-28 11-21 Puffs ity of mcg/actuati 00:00: 00:00 every 4 [place] on inhaler 00 :00 (four) Medical hours as Branch needed for Wheezing or Shortness of Breath. dexAMETHaso 2020- No [id number] 4mg Take 1 Univers ne 4 mg [...] 30 mg 00 :00 1 dose, Medical 07/05/20 Branch at 1830, Routine
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 Medica l 50-300-40 Branch mg per capsule SULFADIAZIN 0 Yes Take by Uni vers E ORAL 1-09 mouth. ity of 21:15: [address] SULFASALAZI 0 Yes Take by Uni vers NE ORAL 1-09 mouth. ity of 21:15: [address] Butalbital- Yes 1{capsu Take 1 U nivers Acetaminoph 1-09 le} capsule by it y of en-Caff 21:15: mouth as [place] (FIORICET) 51 needed. Medica l 50-300-40 Branch mg per capsule SULFADIAZIN 0 Yes Take by Uni vers E ORAL 1-09 mouth. ity of 21:15: [address] SULFASALAZI 0 Yes Take by Uni vers NE ORAL 1-09 mouth. ity of 21:15: [address] Butalbital- 0 Yes 1{capsu Take 1 U nivers Acetaminoph 1-09 le} capsule by it y of en-Caff 21:15: mouth as [place] (FIORICET) 51 needed. Medica l 50-300-40 Branch mg per capsule SULFADIAZIN 0 Yes Take by Uni vers E ORAL 1-09 mouth. ity of 21:15: [address] SULFASALAZI 0 Yes Take by Uni vers NE ORAL 1-09 mouth. ity of 21:15: [address] Butalbital- 0 Yes 1{capsu Take 1 U nivers Acetaminoph 1-09 le} capsule by it y of en-Caff 21:15: mouth as [place] (FIORICET) 51 needed. Medica l 50-300-40 Branch mg per capsule SULFADIAZIN 2020-0 Yes Take by Uni vers E ORAL 1-09 mouth. ity of 21:15: [address] SULFASALAZI 0 Yes Take by Uni vers NE ORAL 1-09 mouth. ity of 21:15: [place] [address] Medical Branch Butalbital- 2020-0 Yes 1{capsu Take 1 U nivers Acetaminoph 07-05 le} capsule by it y of en-Caff 21:15: mouth as [place] (FIORICET) 51 needed. Medica l 50-300-40 Branch mg per capsule SULFADIAZIN 2020-0 Yes Take by Uni vers E ORAL -09 mouth. ity of 21:15: [place] [address] Medical Branch SULFASALAZI 2020-0 Yes Take by Uni vers NE ORAL -09 mouth. ity of 21:15: [place] [address] Medical Branch Butalbital- 2020-0 Yes 1{capsu Take 1 U nivers Acetaminoph 07-05 le} capsule by it y of en-Caff 21:15: mouth as [place] (FIORICET) 51 needed. Medica l 50-300-40 Branch mg per capsule SULFADIAZIN 2020-0 Yes Take by Uni vers E ORAL -09 mouth. ity of 21:15: [place] [address] Medical Branch SULFASALAZI 2020-0 Yes Take by Uni vers NE ORAL - mouth. ity of 21:15: [place] [address] Medical Branch Butalbital- 0 Yes 1{capsu Take 1 U nivers Acetaminoph 07-05 le} capsule by it y of en-Caff 21:15: mouth as [place] (FIORICET) 51 needed. Medica l 50-300-40 Branch mg per capsule SULFADIAZIN 2020-0 Yes Take by Uni vers E ORAL -09 mouth. ity of 21:15: [place] [address] Medical Branch SULFASALAZI 2020-0 Yes Take by Uni vers NE ORAL -09 mouth. ity of 21:15: [place] [address] Medical Branch hydroxychlo 2020-0 Yes Take by Uni vers roquine -09 mouth. ity of sulfate 21:14: [place] (HYDROXYCHL 52 Medical OROQUINE Branch ORAL) hydroxychlo 2020-0 Yes Take by Uni vers roquine -09 mouth. ity of sulfate 21:14: [place] (HYDROXYCHL 52 Medical OROQUINE Branch ORAL) hydroxychlo 2020-0 Yes Take by Uni vers roquine -09 mouth. ity of sulfate 21:14: [place] (HYDROXYCHL 52 Medical OROQUINE Branch ORAL) hydroxychlo 0 Yes Take by Uni vers roquine 1-09 mouth. ity of sulfate 21:14: [place] (HYDROXYCHL 52 Medical OROQUINE Branch ORAL) hydroxychlo 0 Yes Take by Uni vers roquine -09 mouth. ity of sulfate 21:14: [place] (HYDROXYCHL 52 Medical OROQUINE Branch ORAL) hydroxychlo 0 Yes Take by Uni vers roquine -09 mouth. ity of sulfate 21:14: [place] (HYDROXYCHL 52 Medical OROQUINE Branch ORAL) hydroxychlo 0 Yes Take by Uni vers roquine -09 mouth. ity of sulfate 21:14: [place] (HYDROXYCHL 52 Medical OROQUINE Branch ORAL) Butalbital- Yes 1{capsu Take 1 U nivers Acetaminoph 07-05 le} capsule by it y of en-Caff 15:15: mouth as [place] (FIORICET) needed. Medica l 50-300-40 Branch mg per capsule SULFADIAZIN Yes Take by Uni vers E ORAL 07-05 mouth. ity of 15:15: [place] [address] Medical Branch SULFASALAZI Yes Take by Uni vers NE ORAL - mouth. ity of 15:15: [place] [address] Medical Branch hydroxychlo Yes Take by Uni vers roquine -09 mouth. ity of sulfate 15:14: [place] (HYDROXYCHL 52 Medical OROQUINE Branch ORAL) azelastine- [...] mcg/spray 00 Medical nasal spray Branch diphenhydrA 0 2020- No 25mg 25 mg, Uni vers MINE 11-11 Slow IV ity of (BENADRYL) 05:30: 04:28 Push, [place] injection 00 :00 ONCE, 1 Medical 25 mg dose, [facility] 11/12/19 at 0030, STAT famotidine 2020- No 20mg 20 mg, Univ ers (PEPCID 11-11 Slow IV ity of (PF)) 04:30: 03:29 Push, [place] injection 00 :00 ONCE, 1 Medical 20 mg dose, [facility] 11/11/19 at 2330, Routine methylpredn 0 2020- No 125mg 125 mg, IV Univers isolone sod 11-11 Piggyback, i ty of succ 04:30: 03:30 ONCE, 1 [place] (SOLU-MEDRO 00 :00 dose, Sun Med ical L) 11/11/19 at Branch injection 2330, STAT 125 mg EPINEPHrine 0 2020- No .3mg 0.3 mg, Un anupama 1:1,000 (1 11-11 Intramuscu it y of mg/mL) 04:30: 03:23 [place], ONCE, [place] (ADRENALIN) 00 :00 1 dose, Medic al injection [facility] 0.3 mg 11/11/19 at 2330, STAT predniSONE 2020-0 Yes [id number] Take 40mg Univers 20 mg 5-18 by mouth ity of tablet 00:00: daily for [place] 00 two days. Medical Branch predniSONE 2020-0 Yes [id number] Take 40mg Univers 20 mg 5-18 by mouth ity of tablet 00:00: daily for [place] 00 two days. Medical Branch predniSONE 2020-0 Yes [id number] Take 40mg Univers 20 mg 5-18 by mouth ity of tablet 00:00: daily for [place] two days. Medical Branch predniSONE 2020-0 Yes [id number] Take 40mg Univers 20 mg 5-18 by mouth ity of tablet 00:00: daily for [place] 00 two days. Medical Branch predniSONE 2020-0 Yes [id number] Take 40mg Univers 20 mg 5-18 by mouth ity of tablet 00:00: daily for [place] two days. Medical Branch predniSONE 2020-0 Yes [id number] Take 40mg Univers 20 mg 5-18 by mouth ity of tablet 00:00: daily for [place] two days. Medical Branch predniSONE 2020-0 Yes [id number] Take 40mg Univers 20 mg 5-18 by mouth ity of tablet 00:00: daily for [place] two days. Medical Branch predniSONE 2020-0 Yes [id number] Take 40mg Univers 20 mg 5-18 by mouth ity of tablet 00:00: daily for [place] two days. Medical Branch predniSONE 2020-0 Yes [id number] Take 40mg Univers 20 mg 5-18 by mouth ity of tablet 00:00: daily for [place] two days. Medical Branch predniSONE 2020-0 1- No [id number] Take 40mg Univers 20 mg 5-18 11-21 by mouth ity of tablet 00:00: 00:00 daily for [place] 00 :00 two days. Medical Branch EPINEPHrine 2020-0 2020- No [id number] .3mg 0.3 mL by Univers (EPIPEN) 5-18 05-19 Intramuscu ity of 0.3 mg/0.3 00:00: 04:59 lar route [place] mL 00 :00 once now Medical injection for 1 Branch dose. predniSONE 2020-0 Yes [id number] 2 PO q d. Univers 10 mg 2-10 [id number] ity of tablet 00:00: [place] 00 Medical Branch predniSONE 2020-0 Yes [id number] 2 PO q d. Univers 10 mg 2-10 [id number] ity of tablet 00:00: [place] 00 Medical Branch predniSONE 2020-0 Yes [id number] 2 PO q d. Univers 10 mg 2-10 [id number] ity of tablet 00:00: [place] 00 Medical Branch predniSONE 2020-0 Yes [id number] 2 PO q d. Univers 10 mg 2-10 [id number] ity of tablet 00:00: [place] 00 Medical Branch predniSONE 2020-0 Yes [id number] 2 PO q d. Univers 10 mg 2-10 [id number] ity of tablet 00:00: [place] 00 Medical Branch predniSONE 2020-0 Yes [id number] 2 PO q d. Univers 10 mg 2-10 [id number] ity of tablet 00:00: [place] 00 Medical Branch predniSONE 2020-0 Yes [id number] 2 PO q d. Univers 10 mg 2-10 [id number] ity of tablet 00:00: [place] 00 Medical Branch predniSONE 2020-0 Yes [id number] 2 PO q d. Univers 10 mg 2-10 [id number] ity of tablet 00:00: [place] 00 Medical Branch predniSONE 2020-0 Yes [id number] 2 PO q d. Univers 10 mg 2-10 [id number] ity of tablet 00:00: [place] 00 Medical Branch predniSONE 2020-0 Yes [id number] 2 PO q d. Univers 10 mg 2-10 [id number] ity of tablet 00:00: [place] 00 Medical Branch predniSONE 2020-0 Yes [id number] 2 PO q d. Univers 10 mg 2-10 [id number] ity of tablet 00:00: [place] 00 Medical Branch predniSONE 2020-0 Yes [id number] 2 PO q d. Univers 10 mg 2-10 [id number] ity of tablet 00:00: [place] 00 Medical Branch predniSONE 2020-0 Yes [id number] 2 PO q d. Univers 10 mg 2-10 [id number] ity of tablet 00:00: [place] 00 Medical Branch predniSONE 2020-0 2020- No [id number] 2 PO q d. Univers 10 mg 2-10 05-18 [id number] ity of tablet 00:00: 00:00 [place] 00 :00 Medical Branch ondansetron 2019-0 Yes 4mg Take 4 mg U nivers (ZOFRAN) 4 4-16 by mouth ity o f mg tablet 13:28: every 8 [place] 06 (eight) Medical hours as Branch needed. [...] l 50-300-40 Branch mg per capsule methocarbam 0 Yes 500mg Take 500 U nivers ol [...] mg 06 needed. Medical tablet Branch Butalbital- 0 Yes 1{capsu Take 1 [...] needed for Nausea and Vomiting (N/V). traMADOL 2018- Yes 50mg Take 1 Univers [...] needed for Nausea and Vomiting (N/V). traMADOL 2018- Yes 50mg Take 1 Univers [...] needed for Nausea and Vomiting (N/V). traMADOL 2018- Yes 50mg Take 1 Univers [...] needed for Nausea and Vomiting (N/V). traMADOL 2018-1 Yes 50mg Take 1 Univers (ULTRAM) 50 [...] needed for Nausea and Vomiting (N/V). traMADOL 2018- Yes 50mg Take 1 Univers [...] as needed for Pain (scale 7-10). ondansetron 2017-06- No 4mg Take 1 Uni vers (ZOFRAN) 4 2-18 -28 tablet by ity of mg tablet 00:00: 00:00 mouth [place] 00 :00 every 8 Medical (eight) Branch hours as needed for Nausea and Vomiting (N/V). albuterol Yes [id number] 2{puff} Inhale 2 Univers 90 1-13 Puffs ity of mcg/actuati 00:00: every 6 Man[place] as on inhaler 00 (six) Medical hours as Branch needed for Wheezing or Shortness of Breath. albuterol Yes [id number] 2.5mg Inhale 3 Univers 2.5 mg /3 1-13 mL every 4 ity of mL (0.083 00:00: (four) [place] %) 00 hours as Medical nebulizer needed for Bran ch solution Wheezing or Shortness of Breath. albuterol Yes [id number] 2{puff} Inhale 2 Univers 90 1-13 Puffs ity of mcg/actuati 00:00: every 6 Man[place] as on inhaler 00 (six) Medical hours as Branch needed for Wheezing or Shortness of Breath. albuterol Yes [id number] 2.5mg Inhale 3 Univers 2.5 mg /3 1-13 mL every 4 ity of mL (0.083 00:00: (four) [place] %) 00 hours as Medical nebulizer needed for Bran ch solution Wheezing or Shortness of Breath. albuterol Yes [id number] 2{puff} Inhale 2 Univers 90 1-13 Puffs ity of mcg/actuati 00:00: every 6 Man[place] as on inhaler 00 (six) Medical hours as Branch needed for Wheezing or Shortness of Breath. albuterol Yes [id number] 2.5mg Inhale 3 Univers 2.5 mg /3 1-13 mL every 4 ity of mL (0.083 00:00: (four) [place] %) 00 hours as Medical nebulizer needed for Bran ch solution Wheezing or Shortness of Breath. albuterol Yes [id number] 2{puff} Inhale 2 Univers 90 1-13 Puffs ity of mcg/actuati 00:00: every 6 [place] as on inhaler 00 (six) Medical hours as Branch needed for Wheezing or Shortness of Breath. albuterol Yes [id number] 2.5mg Inhale 3 Univers 2.5 mg /3 1-13 mL every 4 ity of mL (0.083 00:00: (four) [place] %) 00 hours as Medical nebulizer needed for Bran ch solution Wheezing or Shortness of Breath. albuterol 2017- Yes [id number] 2{puff} Inhale 2 Univers 90 1-13 Puffs ity of mcg/actuati 00:00: every 6 [place] as on inhaler 00 (six) Medical hours as Branch needed for Wheezing or Shortness of Breath. albuterol 2017- Yes [id number] 2.5mg Inhale 3 Univers 2.5 mg /3 1-13 mL every 4 ity of mL (0.083 00:00: (four) [place] %) 00 hours as Medical nebulizer needed for Bran ch solution Wheezing or Shortness of Breath. albuterol 2017- Yes [id number] 2{puff} Inhale 2 Univers 90 1-13 Puffs ity of mcg/actuati 00:00: every 6 [place] as on inhaler 00 (six) Medical hours as Branch needed for Wheezing or Shortness of Breath. albuterol 2017- Yes [id number] 2.5mg Inhale 3 Univers 2.5 mg /3 1-13 mL every 4 ity of mL (0.083 00:00: (four) [place] %) 00 hours as Medical nebulizer needed for Bran ch solution Wheezing or Shortness of Breath. albuterol 2017- Yes [id number] 2{puff} Inhale 2 Univers 90 1-13 Puffs ity of mcg/actuati 00:00: every 6 Man[place] as on inhaler 00 (six) Medical hours as Branch needed for Wheezing or Shortness of Breath. albuterol 2017- Yes [id number] 2.5mg Inhale 3 Univers 2.5 mg /3 1-13 mL every 4 ity of mL (0.083 00:00: (four) [place] %) 00 hours as Medical nebulizer needed for Bran ch solution Wheezing or Shortness of Breath. albuterol 2017- Yes [id number] 2{puff} Inhale 2 [facility] 90 1-13 Puffs ity of mcg/actuati 00:00: every 6 Maninder as on inhaler 00 (six) Medical hours as Branch needed for Wheezing or Shortness of Breath. albuterol 2017- Yes [id number] 2.5mg Inhale 3 [facility] 2.5 mg /3 1-13 mL every 4 ity of mL (0.083 00:00: (four) [place] %) 00 hours as Medical nebulizer needed for Bran ch solution Wheezing or Shortness of Breath. albuterol 2017- Yes [id number] 2{puff} Inhale 2 [facility] 90 1-13 Puffs ity of mcg/actuati 00:00: every 6 Maninder as on inhaler 00 (six) Medical hours as Branch needed for Wheezing or Shortness of Breath. albuterol 2017- Yes [id number] 2.5mg Inhale 3 [facility] 2.5 mg /3 1-13 mL every 4 ity of mL (0.083 00:00: (four) [place] %) 00 hours as Medical nebulizer needed for Bran ch solution Wheezing or Shortness of Breath. albuterol 2017- Yes [id number] 2{puff} Inhale 2 [facility] 90 1-13 Puffs ity of mcg/actuati 00:00: every 6 Maninder as on inhaler 00 (six) Medical hours as Branch needed for Wheezing or Shortness of Breath. albuterol 2017- Yes [id number] 2.5mg Inhale 3 [facility] 2.5 mg /3 1-13 mL every 4 ity of mL (0.083 00:00: (four) [place] %) 00 hours as Medical nebulizer needed for Bran ch solution Wheezing or Shortness of Breath. albuterol 2017- Yes [id number] 2{puff} Inhale 2 [facility] 90 1-13 Puffs ity of mcg/actuati 00:00: every 6 Maninder as on inhaler 00 (six) Medical hours as Branch needed for Wheezing or Shortness of Breath. albuterol 2017- Yes [id number] 2.5mg Inhale 3 [facility] 2.5 mg /3 1-13 mL every 4 ity of mL (0.083 00:00: (four) [place] %) 00 hours as Medical nebulizer needed for Bran ch solution Wheezing or Shortness of Breath. albuterol 2017- Yes [id number] 2{puff} Inhale 2 [facility] 90 1-13 Puffs ity of mcg/actuati 00:00: every 6 Maninder as on inhaler 00 (six) Medical hours as Branch needed for Wheezing or Shortness of Breath. albuterol 2017-0 Yes [id number] 2.5mg Inhale 3 [facility] 2.5 mg /3 1-13 mL every 4 ity of mL (0.083 00:00: (four) [place] %) 00 hours as Medical nebulizer needed for Bran ch solution Wheezing or Shortness of Breath. albuterol 2017- Yes [id number] 2{puff} Inhale 2 [facility] 90 1-13 Puffs ity of mcg/actuati 00:00: every 6 Maninder as on inhaler 00 (six) Medical hours as Branch needed for Wheezing or Shortness of Breath. albuterol 2017- Yes [id number] 2.5mg Inhale 3 [facility] 2.5 mg /3 1-13 mL every 4 ity of mL (0.083 00:00: (four) [place] %) 00 hours as Medical nebulizer needed for Bran ch solution Wheezing or Shortness of Breath. albuterol 2017- Yes [id number] 2{puff} Inhale 2 [facility] 90 1-13 Puffs ity of mcg/actuati 00:00: every 6 Maninder as on inhaler 00 (six) Medical hours as Branch needed for Wheezing or Shortness of Breath. albuterol 2017- Yes [id number] 2.5mg Inhale 3 [facility] 2.5 mg /3 1-13 mL every 4 ity of mL (0.083 00:00: (four) [place] %) 00 hours as Medical nebulizer needed for Bran ch solution Wheezing or Shortness of Breath. albuterol 2017- Yes [id number] 2.5mg Inhale 3 [facility] 2.5 mg /3 1-13 mL every 4 ity of mL (0.083 00:00: (four) [place] %) 00 hours as Medical nebulizer needed for Bran ch solution Wheezing or Shortness of Breath. albuterol Yes [id number] 2{puff} Inhale 2 [facility] 90 1-13 Puffs ity of mcg/actuati 00:00: every 6 Maninder as on inhaler 00 (six) Medical hours as Branch needed for Wheezing or Shortness of Breath. albuterol 2017- Yes [id number] 2{puff} Inhale 2 [facility] 90 1-13 Puffs ity of mcg/actuati 00:00: every 6 Maninder as on inhaler 00 (six) Medical hours as Branch needed for Wheezing or Shortness of Breath. albuterol 2017- Yes [id number] 2.5mg Inhale 3 [facility] 2.5 mg /3 1-13 mL every 4 ity of mL (0.083 00:00: (four) [place] %) 00 hours as Medical nebulizer needed for Bran ch solution Wheezing or Shortness of Breath. albuterol Yes [id number] 2{puff} Inhale 2 [facility] 90 1-13 Puffs ity of mcg/actuati 00:00: every 6 Maninder as on inhaler 00 (six) Medical hours as Branch needed for Wheezing or Shortness of Breath. albuterol Yes [id number] 2.5mg Inhale 3 [facility] 2.5 mg /3 1-13 mL every 4 ity of mL (0.083 00:00: (four) [place] %) 00 hours as Medical nebulizer needed for Bran ch solution Wheezing or Shortness of Breath. albuterol Yes [id number] 2{puff} Inhale 2 [facility] 90 1-13 Puffs ity of mcg/actuati 00:00: every 6 Maninder as on inhaler 00 (six) Medical hours as Branch needed for Wheezing or Shortness of Breath. albuterol Yes [id number] 2.5mg Inhale 3 [facility] 2.5 mg /3 1-13 mL every 4 ity of mL (0.083 00:00: (four) [place] %) 00 hours as Medical nebulizer needed for Bran ch solution Wheezing or Shortness of Breath. albuterol Yes [id number] 2{puff} Inhale 2 [facility] 90 1-13 Puffs ity of mcg/actuati 00:00: every 6 Maninder as on inhaler 00 (six) Medical hours as Branch needed for Wheezing or Shortness of Breath. albuterol Yes [id number] 2.5mg Inhale 3 [facility] 2.5 mg /3 1-13 mL every 4 ity of mL (0.083 00:00: (four) [place] %) 00 hours as Medical nebulizer needed for Bran ch solution Wheezing or Shortness of Breath. albuterol Yes [id number] 2{puff} Inhale 2 [facility] 90 1-13 Puffs ity of mcg/actuati 00:00: every 6 Maninder as on inhaler 00 (six) Medical hours as Branch needed for Wheezing or Shortness of Breath. albuterol Yes [id number] 2.5mg Inhale 3 [facility] 2.5 mg /3 1-13 mL every 4 ity of mL (0.083 00:00: (four) [place] %) 00 hours as Medical nebulizer needed for Bran ch solution Wheezing or Shortness of Breath. albuterol Yes [id number] 2{puff} Inhale 2 [facility] 90 1-13 Puffs ity of mcg/actuati 00:00: every 6 Maninder as on inhaler 00 (six) Medical hours as Branch needed for Wheezing or Shortness of Breath. albuterol Yes [id number] 2.5mg Inhale 3 [facility] 2.5 mg /3 1-13 mL every 4 ity of mL (0.083 00:00: (four) [place] %) 00 hours as Medical nebulizer needed for Bran ch solution Wheezing or Shortness of Breath. albuterol Yes [id number] 2{puff} Inhale 2 [facility] 90 1-13 Puffs ity of mcg/actuati 00:00: every 6 Maninder as on inhaler 00 (six) Medical hours as Branch needed for Wheezing or Shortness of Breath. albuterol Yes [id number] 2.5mg Inhale 3 [facility] 2.5 mg /3 1-13 mL every 4 ity of mL (0.083 00:00: (four) [place] %) 00 hours as Medical nebulizer needed for Bran ch solution Wheezing or Shortness of Breath. albuterol Yes [id number] 2{puff} Inhale 2 [facility] 90 1-13 Puffs ity of mcg/actuati 00:00: every 6 Maninder as on inhaler 00 (six) Medical hours as Branch needed for Wheezing or Shortness of Breath. albuterol Yes [id number] 2.5mg Inhale 3 [facility] 2.5 mg /3 [...] cap, 0 [Fioricet Refill(s) with Codeine] Acetaminoph Yes 1 cap, PO, Memoria en 300 MG / 5-19 TID, PRN l butalbital 21:34: Headache, He rmann 50 MG / 00 Do not Caffeine 40 exceed 6 MG / capsules Codeine in 24 Phosphate hours, X 5 30 MG Oral day, # 15 Capsule cap, 0 [Fioricet Refill(s) with Codeine] Acetaminoph Yes 1 cap, PO, Memoria en 300 MG / 5-19 TID, PRN l butalbital 21:34: Headache, He rmann 50 MG / 00 Do not Caffeine 40 exceed 6 MG / capsules Codeine in 24 Phosphate hours, X 5 30 MG Oral day, # 15 Capsule cap, 0 [Fioricet Refill(s) with Codeine] Acetaminoph Yes 1 cap, PO, Memoria en 300 MG / 5-19 TID, PRN l butalbital 21:34: Headache, He rmann 50 MG / 00 Do not Caffeine 40 exceed 6 MG / capsules Codeine in 24 Phosphate hours, X 5 30 MG Oral day, # 15 Capsule cap, 0 [Fioricet Refill(s) with Codeine] Reglan 0 No 10 mg, Memoria 5 Route: l 19:07: IVP, Drug [place] form: INJ, ONCE, kg, Priority: STAT, Start date: 11/12/16 14:07:00 CDT, Stop date: 11/12/16 14:07:00 CDT Benadryl 2016-0 No 25 mg, Memoria 5 Route: l 19:07: IVP, ONCE, Irvin 00 kg, Priority: STAT, Start date: 11/12/16 14:07:00 CDT, Stop date: 11/12/16 14:07:00 CDT Reglan 2016-0 No 10 mg, Memoria 5 Route: l 19:07: IVP, Drug [place] form: INJ, ONCE, kg, Priority: STAT, Start date: 11/12/16 14:07:00 CDT, Stop date: 11/12/16 14:07:00 CDT Benadryl 2016-0 No 25 mg, Memoria 5-19 Route: l 19:07: IVP, ONCE, Irvin 00 kg, Priority: STAT, Start date: 11/12/16 14:07:00 CDT, Stop date: 11/12/16 14:07:00 CDT Reglan 2016-0 No 10 mg, Memoria 11-12 Route: l 19:07: IVP, Drug [place] 00 form: INJ, ONCE, kg, Priority: STAT, Start date: 11/12/16 14:07:00 CDT, Stop date: 11/12/16 14:07:00 CDT Benadryl 2017-0 No 25 mg, Memoria 11-12 Route: l 19:07: IVP, ONCE, [place] 00 kg, Priority: STAT, Start date: 11/12/16 14:07:00 CDT, Stop date: 11/12/16 14:07:00 CDT Reglan 2016-0 No 10 mg, Memoria 11-12 Route: l 19:07: IVP, Drug [place] 00 form: INJ, ONCE, kg, Priority: STAT, Start date: 11/12/16 14:07:00 CDT, Stop date: 11/12/16 14:07:00 CDT Benadryl 2016-0 No 25 mg, Memoria 11-12 Route: l 19:07: IVP, ONCE, [place] 00 kg, Priority: STAT, Start date: 11/12/16 [...] Chloride 5-19 1,000 l 0.154 19:06: ml/hr, [place] MEQ/ML 00 Infuse Injectable Over: 1 Solution hr, Route: IV, ONCE, Priority: STAT, kg, Start date: 11/12/16 14:06:00 CDT, Duration: 1 doses or times, Stop date: 11/12/16 14:06:00 CDT Sodium 2017-0 No 1,000 mL, Memori a Chloride 5-19 1,000 l 0.154 19:06: ml/hr, [place] MEQ/ML 00 Infuse Injectable Over: 1 Solution hr, Route: IV, ONCE, Priority: STAT, kg, Start date: 11/12/16 14:06:00 CDT, Duration: 1 doses or times, Stop date: 11/12/16 14:06:00 CDT dexamethaso 2011- No Mike 1 mg, 1 Me moria ne 0-25 Neil tab, l 02:00: Abdunnur Route: PO, Her banner 00 Drug form: TAB, Q12H, Dosing Weight 95.455, kg, Start date: 04/19/12 21:00:00, Duration: 30 day, Stop date: 05/19/12 9:00:00 dexamethaso 2011- No Mike 1 mg, 1 Me moria ne 0-25 Neil tab, l 02:00: Abdunnur Route: PO, Her leon 00 Drug form: TAB, Q12H, Dosing Weight 95.455, kg, Start date: 04/19/12 21:00:00, Duration: 30 day, Stop date: 05/19/12 9:00:00 dexamethaso 2011-1 No Mike 1 mg, 1 Me moria ne 0-25 Neil tab, l 02:00: Abdunnur Route: PO, Her leon 00 Drug form: TAB, Q12H, Dosing Weight 95.455, kg, Start date: 04/19/12 21:00:00, Duration: 30 day, Stop date: 05/19/12 9:00:00 dexamethaso 2011-1 No Mike 1 mg, 1 Me moria [...] leon capsule 08 Substituti on Allowed Valium 2011-06 Yes Mike 10 mg, 1 Mem oria mg oral 0-23 Neil tab, PO, l tablet 15:09: Abdunnur TID, PRN, He rmann 05 60 tab, muscle spasm, Substituti on Allowed, TAB Valium 2011-06 Yes Mike 10 mg, 1 Mem oria mg oral 0-23 Neil tab, PO, l tablet 15:09: Abdunnur TID, PRN, He rmann 05 60 tab, muscle spasm, Substituti on Allowed, TAB Valium 2011-06 Yes Mike 10 mg, 1 Mem oria mg oral 0-23 Neil tab, PO, l tablet 15:09: Abdunnur TID, PRN, He rmann 05 60 tab, muscle spasm, Substituti on Allowed, TAB Valium 2011-06 Yes Mike 10 mg, 1 Mem oria mg oral 0-23 Neil tab, PO, l tablet 15:09: Abdunnur TID, PRN, He rmann 05 60 tab, muscle spasm, Substituti on Allowed, TAB [place] 2011-06 Yes Mike 1 tab, PO, Memor ia 10/325 oral 0-23 Neil Q4H, PRN, l tablet 15:08: Abdunnur 30 tab, 2, H ermann 58 2, as needed for pain, Substituti on Allowed, Maintenanc e, TAB [place] 2011-06 Yes Mike 1 tab, PO, Memor ia 10/325 oral 0-23 Neil Q4H, PRN, l tablet 15:08: Abdunnur 30 tab, 2, H ermann 58 2, as needed for pain, Substituti on Allowed, Maintenanc e, TAB [place] 2011-06 Yes Mike 1 tab, PO, Memor ia 10/325 oral 0-23 Neil Q4H, PRN, l tablet 15:08: Abdunnur 30 tab, 2, H ermann 58 2, as needed for pain, Substituti on Allowed, Maintenanc e, TAB [place] 2011-06 Yes Mike 1 tab, PO, Memor [...] tab, l 14:00: Abdunnur Route: PO, Her banner 00 Drug form: TAB, QID, Dosing Weight 95.455, kg, Start date: 04/18/12 9:00:00, Duration: 30 day, Stop date: 05/17/12 21:00:00 dexamethaso 2011-06 No Mike 1 mg, 1 Me moria ne 0-23 Neil tab, l 14:00: Abdunnur Route: PO, [facility] 00 Drug form: TAB, QID, Dosing Weight 95.455, kg, Start date: 04/18/12 9:00:00, Duration: 30 day, Stop date: 05/17/12 21:00:00 Sodium 2011-1 No Mike 250 mL, Memoria Chloride 0-22 [...] Neil Rate: 150 l 11:55: Abdunnur ml/hr, [place] 00 Infuse over: 6.7 hr, Route: IV, [...] Neil Rate: 150 l 11:55: Abdunnur ml/hr, [place] 00 Infuse over: 6.7 hr, Route: IV, [...] 0.03 mL, l human 21:26: Lo Route: [place] recombinant 00 SUB-Q, 100 Drug form: units/mL SOLN, PRN, injectable Dosing solution Weight 95.455, kg, PRN Abnormal Lab Result, Start date: 04/16/12 16:26:00, Duration: 30 day, Stop date: 05/16/12 15:25:00 Dextrose 2011-06 No Neil 25 gm, 50 Me moria 50% Syringe 0-21 Ping-Villegas mL, Route: l 21:26: Lo IVP, Drug [place] 00 Form: INJ, Dosing Weight 95.455, kg, PRN, PRN Abnormal Lab Result, Start date: 04/16/12 16:26:00, Duration: 30 day, Stop date: 05/16/12 15:25:00 insulin 2011-06 No Neil 3 unit, Memor ia regular 0-21 Ping-Villegas 0.03 mL, l human 21:26: Lo Route: Irvin recombinant 00 SUB-Q, 100 Drug form: units/mL SOLN, PRN, injectable Dosing solution Weight 95.455, kg, PRN Abnormal Lab Result, Start date: 04/16/12 16:26:00, Duration: 30 day, Stop date: 05/16/12 15:25:00 Dextrose 2011-06 No Neil 25 gm, 50 Me moria 50% Syringe 0-21 Ping-Villegas mL, Route: l 21:26: Lo IVP, Drug [place] 00 Form: INJ, Dosing Weight 95.455, kg, PRN, PRN Abnormal Lab Result, Start date: 04/16/12 16:26:00, Duration: 30 day, Stop date: 05/16/12 15:25:00 insulin 2011-06 No Neil 3 unit, Memor ia regular 0-21 Ping-Villegas 0.03 mL, l human 21:26: Lo Route: Irvin recombinant 00 SUB-Q, 100 Drug form: units/mL SOLN, PRN, injectable Dosing solution Weight 95.455, kg, PRN Abnormal Lab Result, Start date: 04/16/12 16:26:00, Duration: 30 day, Stop date: 05/16/12 15:25:00 Dextrose 2011-06 No Neil 25 gm, 50 Me moria 50% Syringe 0-21 Ping-Villegas mL, Route: l 21:26: Lo IVP, Drug [place] 00 Form: INJ, Dosing Weight 95.455, kg, PRN, PRN Abnormal Lab Result, Start date: 04/16/12 16:26:00, Duration: 30 day, Stop date: 05/16/12 15:25:00 insulin 2011-06 No Neil 3 unit, Memor ia regular 0-21 Ping-Villegas 0.03 mL, l human 21:26: Lo Route: Irvin recombinant 00 SUB-Q, 100 Drug form: units/mL [...] of 2011-06 No Teresa 300 ml, Me delfinoa Magnesia 0-19 Shaun Route: PO, l 18:30: Raymond Drug Form: Herm janine 00 LIQ, Dosing Weight 95.455, kg, ONCE, Start date: 04/14/12 13:30:00, Stop date: 04/14/12 13:30:00 Dilaudid 2011-06 No [facility] 0.5 mg, Memoria 0-19 n Chris 0.25 mL, l 05:50: Route: IV, Irvin 00 Drug form: INJ, Q3H, Dosing Weight 95.455, kg, PRN Pain, Start date: 04/14/12 0:50:00, Duration: 30 day, Stop date: 05/14/12 0:49:00 Dilaudid 2011-06 No [facility] 0.5 mg, Memoria 0-19 n Chris 0.25 mL, l 05:50: Route: IV, Irvin 00 Drug form: INJ, Q3H, Dosing Weight 95.455, kg, PRN Pain, Start date: 04/14/12 0:50:00, Duration: 30 day, Stop date: 05/14/12 0:49:00 Dilaudid 2011-06 No [facility] 0.5 mg, Memoria 0-19 n Chris 0.25 mL, l 05:50: Route: IV, [place] 00 Drug form: INJ, Q3H, Dosing Weight 95.455, kg, PRN Pain, Start date: 04/14/12 0:50:00, Duration: 30 day, Stop date: 05/14/12 0:49:00 Dilaudid 2011-06 No [facility] 0.5 mg, Memoria 0-19 n Chris 0.25 mL, l 05:50: Route: IV, [place] 00 Drug form: INJ, Q3H, Dosing Weight 95.455, kg, PRN Pain, Start date: 04/14/12 0:50:00, Duration: 30 day, Stop date: 05/14/12 0:49:00 [facility] 2011-06 No Teresa 1 supp, Memoria Glycerin 0-19 Shaun Route: MT, l Suppositori 03:13: Raymond Drug Form: Irvin villalobos Adult 00 SUPP, Dosing Weight 95.455, kg, Daily, PRN as needed for constipati on, Start date: 04/13/12 22:13:00, Stop date: 05/13/12 22:12:00 [facility] 2011-06 No Teresa 1 supp, Memoria Glycerin 0-19 Shaun Route: MT, l Suppositori 03:13: Raymond Drug Form: Irvin villalobos Adult 00 SUPP, Dosing Weight 95.455, kg, Daily, PRN as needed for constipati on, Start date: 04/13/12 22:13:00, Stop date: 05/13/12 22:12:00 [facility] 2011-06 No Teresa 1 supp, Memoria Glycerin 0-19 Shaun Route: MT, l Suppositori 03:13: Raymond Drug Form: Irvin Siu 00 SUPP, Dosing Weight 95.455, kg, Daily, PRN as needed for constipati on, Start date: 04/13/12 22:13:00, Stop date: 05/13/12 22:12:00 [facility] 2011-06 No Teresa 1 supp, Memoria Glycerin 0-19 Shaun Route: MT, l Suppositori 03:13: Raymond Drug Form: Irvin Siu 00 SUPP, Dosing Weight 95.455, kg, Daily, [...] 1 l 21:00: Abdunnur mL, Route: Her banner 00 SUB-Q, Drug form: INJ, Q8H, Dosing Weight 95.455, kg, Start date: 04/13/12 16:00:00, Duration: 30 day, Stop date: 05/13/12 8:00:00 heparin 2011-06 No Mike 5,000 Memoria 0-18 Neil unit, 1 l 21:00: Abdunnur mL, Route: Her banner 00 SUB-Q, Drug form: INJ, Q8H, Dosing [...] 30 day, Stop date: 05/13/12 14:37:00 Valium 2011- No Mike 10 mg, 2 Memori a 0-18 Neil tab, l 19:38: Abdunnur Route: PO, Her leon 00 Drug form: TAB, TID, Dosing Weight 95.455, kg, PRN Muscle Spasms, Start date: 04/13/12 14:38:00, Duration: 30 day, Stop date: 05/13/12 14:37:00 senna 8.6 2011-06 No Teresa 8.6 mg, 1 M emoria mg oral 0-18 Shaun tab, l tablet 14:00: Raymond Route: PO, He rm Drug Form: TAB, Dosing Weight 95.455, kg, BID, Start date: 04/13/12 9:00:00, Duration: 30 day, Stop date: 05/12/12 17:00:00 Pepcid 20 2011-06 No Mike 20 mg, 1 Mem oria mg oral 0-18 Neil tab, l tablet 14:00: Abdunnur Route: PO, erm Drug form: TAB, Q12H, Dosing Weight 95.455, kg, Start date: 04/13/12 9:00:00, Duration: 30 day, Stop date: 05/12/12 21:00:00 senna 8.6 2011-06 No Teresa 8.6 mg, 1 M emoria mg oral 0-18 Shaun tab, l tablet 14:00: Raymond Route: PO, He rm Drug Form: TAB, Dosing Weight 95.455, kg, [...] tablet 14:00: Raymond Route: PO, He rm Drug Form: TAB, Dosing Weight 95.455, kg, BID, Start date: 04/13/12 9:00:00, Duration: 30 day, Stop date: 05/12/12 17:00:00 Pepcid 20 2011-06 No Mike 20 mg, 1 Mem oria mg oral 0-18 Neil tab, l tablet 14:00: Abdunnur Route: PO, H erm Drug form: TAB, Q12H, Dosing Weight 95.455, kg, Start date: 04/13/12 9:00:00, Duration: 30 day, Stop date: 05/12/12 21:00:00 senna 8.6 2011-06 No Teresa 8.6 mg, 1 M emoria mg oral 0-18 Shaun tab, l tablet 14:00: Raymond Route: PO, He rm Drug Form: TAB, Dosing Weight 95.455, kg, BID, Start date: 04/13/12 9:00:00, Duration: 30 day, Stop date: 05/12/12 17:00:00 Pepcid 20 2011-06 No Mike 20 mg, 1 Mem oria mg oral 0-18 Neil tab, l tablet 14:00: Abdunnur Route: PO, H erm 00 Drug form: TAB, Q12H, Dosing Weight [...] 2011-06 No Mike 4 mg, 1 Me saleha ne 0-18 Neil tab, l 11:00: Abdunnur Route: PO, Her leon 00 Drug form: TAB, Q6H, Dosing Weight 95.455, kg, Start date: 04/13/12 6:00:00, Duration: 30 day, Stop date: 05/12/12 22:00:00 dexamethaso 2011-06 No Mike 4 mg, 1 Me saleha ne 0-18 Neil tab, l 11:00: Abdunnur Route: PO, Her leon 00 Drug form: TAB, Q6H, Dosing Weight 95.455, kg, Start date: 04/13/12 6:00:00, Duration: 30 day, Stop date: 05/12/12 22:00:00 dexamethaso 2011-06 No Mike 4 mg, 1 Me galvan ne 0-18 Neil tab, l 11:00: Abdunnur Route: PO, Her leon 00 Drug form: TAB, Q6H, Dosing Weight 95.455, kg, Start date: 04/13/12 6:00:00, Duration: 30 day, Stop date: 05/12/12 22:00:00 vancomycin 2011- No Neil 1 gm, Phong tali 0-18 Megan-Bakari Route: l 08:43: Lo IVPB, Drug [place] 00 form: INJ, Q12H, Dosing Weight 95.455, kg, Priority: STAT, Start date: 04/13/12 3:43:00, Duration: 30 day, Stop date: 05/12/12 21:00:00 cefepime 2011-06 No Mike 2 gm, Memoria 0-18 Neil Route: l 08:43: Abdunnur IVPB, Drug Her leon 00 form: INJ, [id number], Dosing Weight 95.455, kg, (CrCl 30 - 49 ml/min, 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), Priority: STAT, Start date: 04/13/12 3:43:00, Stop date: 05/12/12 15:43:00 vancomycin 2011-06 No Neil 1 gm, Phong tali 0-18 Ping-Villegas Route: l 08:43: Lo IVPB, Drug [place] 00 form: INJ, Q12H, Dosing Weight 95.455, kg, Priority: STAT, Start date: 04/13/12 3:43:00, Duration: 30 day, Stop date: 05/12/12 21:00:00 cefepime 2011-06 No Mike 2 gm, Memoria 0-18 Neil Route: l 08:43: Abdunnur IVPB, Drug Her leon 00 form: INJ, [id number], Dosing Weight 95.455, kg, (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 30 - 49 ml/min, 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), Priority: STAT, Start date: 04/13/12 3:43:00, Stop date: 05/12/12 15:43:00 vancomycin 2011-06 No Neil 1 gm, Phong tali 0-18 Ping-Villegas Route: l 08:43: Lo IVPB, Drug [place] 00 form: INJ, Q12H, Dosing Weight 95.455, kg, Priority: STAT, Start date: 04/13/12 3:43:00, Duration: 30 day, Stop date: 05/12/12 21:00:00 cefepime 2011-06 No Mike 2 gm, Memoria 0-18 Neil Route: l 08:43: Abdunnur IVPB, Drug Her leon 00 form: INJ, [id number], Dosing Weight 95.455, kg, (CrCl 30 - 49 ml/min, 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), Priority: STAT, [...] IVPB, Drug Her leon 00 form: INJ, [id number], Dosing Weight 95.455, kg, (CrCl 30 - 49 ml/min, 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), Priority: STAT, Start date: 04/13/12 3:43:00, Stop date: 05/12/12 15:43:00 lidocaine 2011-06 No [facility] 20 mL, Memoria 1% 0-18 n Chris Route: l 02:12: SUB-Q, [place] 00 Drug Form: INJ, Dosing Weight 95.455, kg, ONCE, Start date: 04/12/12 21:12:00, Stop date: 04/12/12 21:12:00 FENTanyl - 2011-[address] one time 0-18 n Chris microgram, l ICU bolus 02:12: 1 mL, Irvin dose 00 Route: IVP, Drug form: INJ, ONCE, Dosing Weight 95.455, kg, Start date: 04/12/12 21:12:00, Stop date: 04/12/12 21:12:00 lidocaine 2011-06 No [facility] 20 mL, Memoria 1% 0-18 n Chris Route: l 02:12: SUB-Q, Ir[place] 00 Drug Form: INJ, Dosing Weight 95.455, kg, ONCE, Start date: 04/12/12 21:12:00, Stop date: 04/12/12 21:12:00 FENTanyl - 2011-[address] one time 0-18 n Chris microgram, l ICU bolus 02:12: 1 mL, Irvin dose 00 Route: IVP, Drug form: INJ, ONCE, Dosing Weight 95.455, kg, Start date: 04/12/12 21:12:00, Stop date: 04/12/12 21:12:00 lidocaine 2011-06 No [facility] 20 mL, Memoria 1% 0-18 n Chris Route: l 02:12: SUB-Q, [place] 00 Drug Form: INJ, Dosing Weight 95.455, kg, ONCE, Start date: 04/12/12 21:12:00, Stop date: 04/12/12 21:12:00 FENTanyl - 2011-[address] one time 0-18 n Chris microgram, l ICU bolus 02:12: 1 mL, [place] dose 00 Route: IVP, Drug form: INJ, ONCE, Dosing Weight 95.455, kg, Start date: 04/12/12 21:12:00, Stop date: 04/12/12 21:12:00 lidocaine 2011- No Jin 20 mL, Memoria 1% 0-18 n Chris Route: l 02:12: SUB-Q, [place] 00 Drug Form: INJ, Dosing Weight 95.455, kg, ONCE, Start date: 04/12/12 21:12:00, Stop date: 04/12/12 21:12:00 FENTanyl - 2011-06 No Jin 50 M [facility] one time 0-18 n Chris microgram, l ICU bolus 02:12: 1 mL, Irvin dose 00 Route: IVP, Drug form: INJ, ONCE, Dosing Weight 95.455, kg, Start date: 04/12/12 21:12:00, Stop date: 04/12/12 21:12:00 Ancef 2011-06 No -Therono 2 gm, 100 M emoria 0-18 n Chris mL, Route: l 02:11: IVPB, Drug [place] 00 form: INJ, ONCE, Dosing Weight 95.455, kg, Start date: 04/12/12 21:11:00, Duration: 1 doses or times, Stop date: 04/12/12 21:11:00 Ancef 2011-06 No Florenciao 2 gm, 100 M emoria 0-18 n Chris mL, Route: l 02:11: IVPB, Drug Irvin 00 form: INJ, ONCE, Dosing Weight 95.455, kg, Start date: 04/12/12 21:11:00, Duration: 1 doses or times, Stop date: 04/12/12 21:11:00 Ancef 2011-06 No -Therono 2 gm, 100 M emoria 0-18 n Chris mL, Route: l 02:11: IVPB, Drug [place] 00 form: INJ, ONCE, Dosing Weight 95.455, kg, Start date: 04/12/12 21:11:00, Duration: 1 doses or times, Stop date: 04/12/12 21:11:00 Ancef 2011-06 No [facility]-[place] 2 gm, 100 M emoria 0-18 n Chris mL, Route: l 02:11: IVPB, Drug [place] 00 form: INJ, ONCE, Dosing Weight 95.455, kg, Start date: 04/12/12 21:11:00, Duration: 1 doses or times, Stop date: 04/12/12 21:11:00 Saline 2011-06 No Teresa 5 ml, Memoria [...] n Chris Route: l 0.12% 01:00: Swab [place] liquid 00 Mouth, Q4H, Drug form: LIQ, [...] n Chris Route: l 0.12% 01:00: Swab [place] liquid 00 Mouth, Q4H, Drug form: LIQ, Start date: 04/12/12 20:00:00, Duration: 30 day, Stop date: 05/12/12 16:00:00 Zofran 2011-06 No [facility] 4 mg, 2 Me moria 0-18 n Chris mL, Route: l 00:47: IVP, Drug Irvin 00 form: INJ, Q8H, Dosing Weight 95.455, kg, PRN Nausea, Start date: 04/12/12 19:47:00, Duration: 30 day, Stop date: 05/12/12 19:46:00 Zofran 2011-06 No [facility] 4 mg, 2 Me moria 0-18 n Chris mL, Route: l 00:47: IVP, Drug [place] 00 form: INJ, Q8H, Dosing Weight 95.455, kg, PRN Nausea, Start date: 04/12/12 19:47:00, Duration: 30 day, Stop date: 05/12/12 19:46:00 Zofran 2011-06 No [facility] 4 mg, 2 Me moria 0-18 n Chris mL, Route: l 00:47: IVP, Drug Irvin 00 form: INJ, Q8H, Dosing Weight 95.455, kg, PRN Nausea, Start date: 04/12/12 19:47:00, Duration: 30 day, Stop date: 05/12/12 19:46:00 Zofran 2011-06 No [facility]-[place] 4 mg, 2 Me moria 0-18 n Chris mL, Route: l 00:47: IVP, Drug [place] 00 form: INJ, Q8H, Dosing Weight 95.455, kg, PRN Nausea, Start date: 04/12/12 19:47:00, Duration: 30 day, Stop date: 05/12/12 19:46:00 Valium 10 2011-06 No 10 mg, 1 Phong tali mg oral 0-17 tab, PO, l tablet 23:29: TID, PRN, Fly n 12 muscle spasm, Substituti on Allowed, TAB Valium 2011-06 No 10 mg, 1 Phong tali mg oral 0-17 tab, PO, l tablet 23:29: TID, PRN, Fly n 12 muscle spasm, Substituti on Allowed, TAB Valium 2011-06 No 10 mg, 1 Phong tali mg oral 0-17 tab, PO, l tablet 23:29: TID, PRN, Fly n 12 muscle spasm, Substituti on Allowed, TAB Valium 2011-06 No 10 mg, 1 Phong tali mg oral 0-17 tab, PO, l tablet 23:29: TID, PRN, Fly n 12 muscle spasm, Substituti on Allowed, TAB [place] 2011-06 No 1 tab, PO, Memori a 10/325 oral 0-17 Q4H, PRN, l tablet 23:29: 24 tab, Irvin 03 for pain, Substituti on Allowed, Maintenanc e [place] 2011-06 No 1 tab, PO, Memori a 10/325 oral 0-17 Q4H, PRN, l tablet 23:29: 24 tab, [place] 03 for pain, Substituti on Allowed, Maintenanc e [place] 2011-06 No 1 tab, PO, Memori a 10/325 oral 0-17 Q4H, PRN, l tablet 23:29: 24 tab, Irvin 03 for pain, Substituti on Allowed, Maintenanc e [place] 2011-06 No 1 tab, PO, Memori a 10/325 oral 0-17 Q4H, PRN, l tablet 23:29: 24 tab, Irvin 03 for pain, Substituti on Allowed, Maintenanc e [place] 2011-06 No Teresa 1 tab, Memoria 10/325 oral 0-17 Shaun Route: PO, l tablet 22:54: Raymond Drug Form: He rmann 00 TAB, Dosing Weight 95.455, kg, Q4H, PRN as needed for pain, Start date: 04/12/12 17:54:00, Duration: 30 day, Stop date: 05/12/12 17:53:00 [place] 2011-06 No Teresa 1 tab, Memoria 10/325 oral 0-17 Shaun Route: PO, l tablet 22:54: Raymond Drug Form: Ravindra rmann 00 TAB, Dosing Weight 95.455, kg, Q4H, PRN as needed for pain, Start date: 04/12/12 17:54:00, Duration: 30 day, Stop date: 05/12/12 17:53:00 [facility] 2011-06 No Teresa 8 mg, 4 Memori a 0-17 Shaun mL, Route: l 22:54: Raymond IV, Drug Fly n 00 form: INJ, Q8H, Dosing Weight 95.455, kg, PRN as needed for nausea/vom iting, Start date: 04/12/12 17:54:00, Duration: 30 day, Stop date: 05/12/12 17:53:00 [facility] 2011-06 No Teresa 8 mg, 4 Memori a 0-17 Shaun mL, Route: l 22:54: Raymond IV, Drug Fly n 00 form: INJ, Q8H, Dosing Weight 95.455, kg, PRN as needed for nausea/vom iting, Start date: 04/12/12 17:54:00, Duration: 30 day, Stop date: 05/12/12 17:53:00 [place] 2011-06 No Teresa 1 tab, Memoria 10/325 oral 0-17 Shaun Route: PO, l tablet 22:54: Raymond Drug Form: Ravindra rmann 00 TAB, Dosing Weight 95.455, kg, Q4H, PRN as needed for pain, Start date: 04/12/12 17:54:00, Duration: 30 day, Stop date: 05/12/12 17:53:00 [facility] 2011-06 No Teresa 8 mg, 4 Memori a 0-17 Shaun mL, Route: l 22:54: Raymond IV, Drug Fly n 00 form: INJ, Q8H, Dosing Weight 95.455, kg, PRN as needed for nausea/vom iting, Start date: 04/12/12 17:54:00, Duration: 30 day, Stop date: 05/12/12 17:53:00 [place] 2011-06 No Teresa 1 tab, Memoria 10/325 oral 0-17 Shaun Route: PO, l tablet 22:54: Raymond Drug Form: Ravindra rmann 00 TAB, Dosing Weight 95.455, kg, Q4H, PRN as needed for pain, Start date: 04/12/12 17:54:00, Duration: 30 day, Stop date: 05/12/12 17:53:00 Idaniafran 2011- No Teresa 8 mg, 4 Memori a 0-17 Shaun mL, Route: l 22:54: Raymond IV, Drug Fly n 00 form: INJ, Q8H, Dosing Weight 95.455, kg, PRN as needed for nausea/vom iting, Start date: 04/12/12 17:54:00, Duration: 30 day, Stop date: 05/12/12 17:53:00 morphine 2011- No [place] 1 mg, 0.5 Memoria Sulfate 0-17 n Chris mL, Route: l 22:53: IV, Drug [place] 00 form: INJ, Q2H, Dosing Weight 95.455, kg, PRN as needed for pain, Start date: 04/12/12 17:53:00, Duration: 30 day, Stop date: 05/12/12 17:52:00 morphine 2011- No [place] 1 mg, 0.5 Memoria Sulfate 0-17 n Chris mL, Route: l 22:53: IV, Drug Irvin 00 form: INJ, Q2H, Dosing Weight 95.455, kg, PRN as needed for pain, Start date: 04/12/12 17:53:00, Duration: 30 day, Stop date: 05/12/12 17:52:00 morphine 2011- No [place] 1 mg, 0.5 Memoria Sulfate 0-17 n Chris mL, Route: l 22:53: IV, Drug Irvin 00 form: INJ, Q2H, Dosing Weight 95.455, kg, PRN as needed for pain, Start date: 04/12/12 17:53:00, Duration: 30 day, Stop date: 05/12/12 17:52:00 morphine 2011- No [place] 1 mg, 0.5 Memoria Sulfate 0-17 n Chris mL, Route: l 22:53: IV, Drug [place] 00 form: INJ, Q2H, Dosing Weight 95.455, kg, PRN as needed for pain, Start date: 04/12/12 17:53:00, Duration: 30 day, Stop date: 05/12/12 17:52:00 Saline 2011-06 No Teresa 5 ml, Memoria Flush 0.9% 0-17 Shaun Route: l 22:49: Raymond IVP, Drug Luci nn 00 Form: INJ, Dosing Weight 95.455, kg, PRN, PRN Line Flush, Start date: 04/12/12 17:49:00, Duration: 30 day, Stop date: 05/12/12 16:48:00 Saline 2011-06 No Teresa 5 ml, Memoria Flush 0.9% 0-17 Shaun Route: l 22:49: Raymond IVP, Drug Luic nn 00 Form: INJ, Dosing Weight 95.455, [...] IVPB, Drug Fly n 00 form: INJ, [id number], Dosing Weight 97.727, kg, Start date: 04/06/12 6:00:00, Duration: 30 day, Stop date: 05/05/12 18:00:00 vancomycin 2011-06 No Wilmer 1 gm, Phong tali 0-11 Chaitanya Route: l 11:00: Rios IVPB, Drug Fly n 00 form: INJ, [id number], Dosing Weight 97.727, kg, Start date: 04/06/12 6:00:00, Duration: 30 day, Stop date: 05/05/12 18:00:00 vancomycin 2011-06 No Wilmer 1 gm, Phong tali 0-11 Chaitanya Route: l 11:00: Rios IVPB, Drug Fly n 00 form: INJ, [id number], Dosing Weight 97.727, kg, Start date: 04/06/12 6:00:00, Duration: 30 day, Stop date: 05/05/12 18:00:00 vancomycin 2011-06 No Wilmer 1 gm, Phong tali 0-11 [place] Route: l 11:00: Gabriel IVPB, Drug Fly n 00 form: INJ, [id number], Dosing Weight 97.727, kg, Start date: 04/06/12 6:00:00, Duration: 30 day, Stop date: 05/05/12 18:00:00 Saline 2011-06 No Wilmer 5 ml, Memoria Flush 0.9% 0-11 Chaitanya Route: l 02:00: Gabriel IVP, Drug [place] 00 Form: INJ, Dosing Weight 97.727, kg, [...] Wilmer 20 mg, 2 M emoria 0-11 Chaitanya mL, Route: l 02:00: Gabriel IVP, Drug [place] 00 form: INJ, Q12H, Dosing Weight 97.727, kg, Start date: 04/05/12 21:00:00, Duration: 30 day, Stop date: 05/05/12 9:00:00 Saline 2011-06 No Wilmer 5 ml, Memoria Flush 0.9% 0-11 [place] Route: l 02:00: Gabriel IVP, Drug Irvin 00 Form: INJ, Dosing Weight 97.727, kg, Q12H, Start date: 04/05/12 21:00:00, Duration: 30 day, Stop date: 05/05/12 9:00:00 docusate 2011-06 No Wilmer 100 mg, 1 Me moria sodium 100 0-11 [place] cap, l mg oral 02:00: Gabriel Route: PO, Her leon capsule 00 Drug form: CAP, Q12H, Dosing Weight 97.727, kg, Start date: 04/05/12 21:00:00, Duration: 30 day, Stop date: 05/05/12 9:00:00 famotidine 2011-06 No Wilmer 20 mg, 2 M emoria 0-11 [place]ava[place] mL, Route: l 02:00: Gabriel IVP, Drug [place] 00 form: INJ, Q12H, Dosing Weight 97.727, kg, Start date: 04/05/12 21:00:00, Duration: 30 day, Stop date: 05/05/12 9:00:00 Saline 2011- No Wilmer 5 ml, Memoria Flush 0.9% 0-11 [place] Route: l 02:00: Gabriel IVP, Drug Irvin Form: INJ, Dosing Weight 97.727, kg, Q12H, Start date: 04/05/12 21:00:00, Duration: 30 day, Stop date: 05/05/12 9:00:00 docusate 2011-06 No Wilmer 100 mg, 1 Me moria sodium 100 0-11 [place] cap, l mg oral 02:00: Gabriel Route: PO, Her leon capsule 00 Drug form: CAP, Q12H, Dosing Weight 97.727, kg, Start date: 04/05/12 21:00:00, Duration: 30 day, Stop date: 05/05/12 9:00:00 famotidine 2011-06 No Wilmer 20 mg, 2 M emoria 0-11 [place]ava[place] mL, Route: l 02:00: Gabriel IVP, Drug [place] 00 form: INJ, Q12H, Dosing Weight 97.727, kg, Start date: 04/05/12 21:00:00, Duration: 30 day, Stop date: 05/05/12 9:00:00 Saline 2011-06 No Wilmer 5 ml, Memoria Flush 0.9% 0-11 [place] Route: l 02:00: Gabriel IVP, Drug Irvin 00 Form: INJ, Dosing Weight 97.727, kg, Q12H, Start date: 04/05/12 21:00:00, Duration: 30 day, Stop date: 05/05/12 9:00:00 docusate 2011- No Wilmer 100 mg, 1 Me moria sodium 100 0-11 [place] cap, l mg oral 02:00: Gabriel Route: PO, Her leon capsule Drug form: CAP, Q12H, Dosing Weight 97.727, kg, Start date: 04/05/12 21:00:00, Duration: 30 day, Stop date: 05/05/12 9:00:00 famotidine 2011-06 No Wilmer 20 mg, 2 M emoria 0-11 [place]ava[place] mL, Route: l 02:00: Gabriel IVP, Drug Irvin 00 form: INJ, Q12H, Dosing Weight 97.727, kg, Start date: 04/05/12 21:00:00, Duration: 30 day, Stop date: 05/05/12 9:00:00 morphine 2011-06 No Kip De 2 mg, Mem oria Sulfate 0-10 [place] Route: l 22:04: IVP, ONCE, [place] 00 Dosing Weight 97.727, kg, Start date: [...] 04/05/12 17:04:00, Stop date: 04/05/12 17:04:00 morphine 2012-1 No Kip De 2 mg, Mem oria Sulfate 0-10 [place] Route: l 22:04: IVP, ONCE, Dosing Weight 97.727, kg, Start date: 04/05/12 [...] Wilmer 10 mg, 1 Memor ia 0-10 [place]av[place] tab, l 19:31: Gabriel Route: PO, Fly n 00 Drug form: TAB, TID, Dosing Weight 97.727, kg, PRN Muscle Spasms, Start date: 04/05/12 14:31:00, Duration: 30 day, Stop date: 05/05/12 14:30:00 vancomycin 2011-06 No Wilmer 1 gm, Phong tali 0-10 Chaitanya Route: l 19:00: Gabriel IVPB, [place] 00 [id number], Dosing Weight 97.727, kg, For 65 - 90kg, Start date: 04/05/12 14:00:00, Duration: 30 day, Stop date: 05/04/12 14:00:00 cefepime 2011-06 No Wilmer 1 gm, Memori a 0-10 [place] Route: l 19:00: Rios IVPB, Drug Fly n 00 form: INJ, [id number], Dosing Weight 97.727, kg, (CrCl >/= 50 ml/min), Start date: 04/05/12 14:00:00, Duration: 30 day, Stop date: 05/05/12 6:00:00 vancomycin 2011-06 No Wilmer 1 gm, Phong tali 0-10 [place] Route: l 19:00: Rios IVPB, [place] 00 [id number], Dosing Weight 97.727, kg, For 65 - 90kg, Start date: 04/05/12 14:00:00, Duration: 30 day, Stop date: 05/04/12 14:00:00 cefepime 2011-06 No Wilmer 1 gm, Memori a 0-10 [place] Route: l 19:00: Rios IVPB, Drug Fly n 00 form: INJ, [id number], Dosing Weight 97.727, kg, (CrCl >/= 50 ml/min), Start date: 04/05/12 14:00:00, Duration: 30 day, Stop date: 05/05/12 6:00:00 vancomycin 2011-06 No Wilmer 1 gm, Phong tali 0-10 [place] Route: l 19:00: Rios IVPB, Irvin 00 [id number], Dosing Weight 97.727, kg, For 65 - 90kg, Start date: 04/05/12 14:00:00, Duration: 30 day, Stop date: 05/04/12 14:00:00 cefepime 2011-06 No Wilmer 1 gm, Memori a 0-10 [place] Route: l 19:00: Rios IVPB, Drug Fly n 00 form: INJ, ABXQ8H, Dosing Weight 97.727, kg, (CrCl >/= 50 ml/min), Start date: 04/05/12 14:00:00, Duration: 30 day, Stop date: 05/05/12 6:00:00 vancomycin 2011-06 No Wilmer 1 gm, Phong tali 0-10 [place] Route: l 19:00: Rios IVPB, Irvin 00 [id number], Dosing Weight 97.727, kg, For 65 - 90kg, Start date: 04/05/12 14:00:00, Duration: 30 day, Stop date: 05/04/12 14:00:00 cefepime 2011-06 No Wilmer 1 gm, Memori a 0-10 Chaitanya Route: l 19:00: Gabriel IVPB, Drug Fly n 00 form: INJ, [id number], Dosing Weight 97.727, kg, (CrCl >/= 50 ml/min), Start date: 04/05/12 14:00:00, Duration: 30 day, Stop date: 05/05/12 6:00:00 morphine 2011-06 No Wilmer 2 mg, 1 Phong tali Sulfate 0-10 Chaitanya mL, Route: l 18:37: Gabriel IVP, Drug [place] 00 form: INJ, Q1H, Dosing Weight 97.727, kg, PRN Pain Score 7-10, Start date: 04/05/12 13:37:00, Duration: 30 day, Stop date: 05/05/12 12:36:00 Saline 2011-06 No Wilmer 5 ml, Memoria Flush 0.9% 0-10 Chaitanya Route: l 18:37: Gabriel IVP, Drug [place] 00 Form: INJ, Dosing Weight 97.727, kg, PRN, PRN Line Flush, Start date: 04/05/12 13:37:00, Duration: 30 day, Stop date: 05/05/12 12:36:00 ondansetron 2011-06 No Wilmer 4 mg, 2 M emoria 0-10 Chaitanya mL, Route: l 18:37: Gabriel IVP, Drug [place] 00 form: INJ, Q8H, Dosing Weight 97.727, kg, PRN Nausea & Vomiting, Start date: 04/05/12 13:37:00, Duration: 30 day, Stop date: 05/05/12 13:36:00 vancomycin 2011-06 No Wilmer 2 gm, Phong tali + Sodium 0-10 Chaitanya Route: l Chloride 18:37: Gabriel IVPB, Irvin 0.9% IV 500 00 ONCE, mL Dosing Weight 97.727, kg, For 70 - 90kg., Start date: 04/05/12 13:37:00, Stop date: 04/05/12 13:37:00 labetalol 2011-06 No Wilmer 10 mg, 2 Me moria 0-10 [place] mL, Route: l 18:37: Gabriel IVP, Drug [place] 00 form: INJ, Q15Min, Dosing Weight 97.727, kg, PRN Hypertensi on, Start date: 04/05/12 13:37:00, Duration: 3 doses or times, Stop date: 04/15/12 0:00:00 morphine 2011-06 No Wilmer 2 mg, 1 Phong tali Sulfate 0-10 [place] mL, Route: l 18:37: Gabriel IVP, Drug [place] 00 form: INJ, Q1H, Dosing Weight 97.727, kg, PRN Pain Score 7-10, Start date: 04/05/12 13:37:00, Duration: 30 day, Stop date: 05/05/12 12:36:00 Saline 2011-06 No Wilmer 5 ml, Memoria Flush 0.9% 0-10 [place] Route: l 18:37: Gabriel IVP, Drug [place] 00 Form: INJ, Dosing Weight 97.727, kg, [...] [place] Route: l Chloride 18:37: Gabriel IVPB, [place] 0.9% IV 500 00 ONCE, mL Dosing Weight 97.727, kg, For 70 - 90kg., Start date: 04/05/12 13:37:00, Stop date: 04/05/12 13:37:00 labetalol 2011-06 No Wilmer 10 mg, 2 Me moria 0-10 [place] mL, Route: l 18:37: Gabriel IVP, Drug [place] 00 form: INJ, Q15Min, Dosing Weight 97.727, kg, PRN Hypertensi on, Start date: 04/05/12 13:37:00, Duration: 3 doses or times, Stop date: 04/15/12 0:00:00 morphine 2011-06 No Wilmer 2 mg, 1 Phong tali Sulfate 0-10 [place] mL, Route: l 18:37: Gabriel IVP, Drug [place] 00 form: INJ, Q1H, Dosing Weight 97.727, kg, PRN Pain Score 7-10, Start date: 04/05/12 13:37:00, Duration: 30 day, Stop date: 05/05/12 12:36:00 Saline 2011-06 No Wilmer 5 ml, Memoria Flush 0.9% 0-10 [place] Route: l 18:37: Gabriel IVP, Drug [place] 00 Form: INJ, Dosing Weight 97.727, kg, PRN, PRN Line Flush, Start date: 04/05/12 13:37:00, Duration: 30 day, Stop date: 05/05/12 12:36:00 ondansetron 2011-06 No Wilmer 4 mg, 2 M emoria 0-10 [place] mL, Route: l 18:37: Gabriel IVP, Drug [place] 00 form: INJ, Q8H, Dosing Weight 97.727, kg, PRN Nausea & Vomiting, Start date: 04/05/12 13:37:00, Duration: 30 day, Stop date: 05/05/12 13:36:00 vancomycin 2011-06 No Wilmer 2 gm, Phong tali + Sodium 0-10 [place] Route: l Chloride 18:37: Gabriel IVPB, [place] 0.9% IV 500 00 ONCE, mL Dosing [...] doses or times, Stop date: 04/15/12 0:00:00 Saline 2011-06 No Wilmer 5 ml, Memoria Flush 0.9% 0-10 [place] Route: l 18:37: Gabriel IVP, Drug [place] 00 Form: INJ, Dosing Weight 97.727, kg, PRN, PRN Line Flush, Start date: 04/05/12 13:37:00, Duration: 30 day, Stop date: 05/05/12 12:36:00 ondansetron 2011-06 No Wilmer 4 mg, 2 M emoria 0-10 [place] mL, Route: l 18:37: Gabriel IVP, Drug [place] 00 form: INJ, Q8H, Dosing Weight 97.727, [...] mL, Route: l 18:37: Gabriel IVP, Drug [place] 00 form: INJ, Q15Min, Dosing Weight 97.727, kg, PRN Hypertensi on, Start date: 04/05/12 13:37:00, Duration: 3 doses or times, Stop date: 04/15/12 0:00:00 morphine 2011-06 No Wilmer 2 mg, 1 Phong tali Sulfate 0-10 [place] mL, Route: l 18:37: Rios IVP, Drug Irvin 00 form: INJ, Q1H, [...] 04/05/12 13:36:00, Stop date: 04/05/12 13:36:00 lidocaine 2011-06 No Wilmer 20 mL, Phong tali 1% 0-10 Chaitanya Route: l injectable 18:36: Rios SUB-Q, Herm janine solution 00 Drug Form: INJ, Dosing Weight 97.727, kg, ONCE, Start date: 04/05/12 13:36:00, Stop date: 04/05/12 13:36:00 lidocaine 2011-06 No Wilmer 20 mL, Phong tali 1% 0-10 Chaitanya Route: l injectable 18:36: Rios SUB-Q, Herm janine solution 00 Drug Form: INJ, Dosing Weight 97.727, kg, ONCE, Start date: 04/05/12 13:36:00, Stop date: 04/05/12 13:36:00 lidocaine 2011-06 No Wilmer 20 mL, Phong tali 1% 0-10 Chaitanya Route: l injectable 18:36: Rios SUB-Q, Herm [...] or times, Stop date: 03/30/12 6:00:00 dexamethaso 2011- No Mike 1 mg, 1 Me moria ne 0-03 Neil tab, l 23:00: Abdunnur Route: PO, Her leon 00 Drug form: TAB, Q12H, Dosing Weight 96.364, kg, Start date: 03/29/12 18:00:00, Duration: 2 doses or times, Stop date: 03/30/12 6:00:00 dexamethaso 2011- No Mike 1 mg, 1 Me moria [...] or times, Stop date: 03/30/12 6:00:00 Valium 2011-06 Yes Mike 10 mg, 1 Mem oria mg oral 0-03 Neil tab, PO, l tablet 11:35: Abdunnur TID, PRN, He rmann 48 60 tab, muscle spasm, Substituti on Allowed, TAB Valium 2011-06 Yes Mike 10 mg, 1 Mem oria mg oral 0-03 Neil tab, PO, l tablet 11:35: Abdunnur TID, PRN, He rmann 48 60 tab, muscle spasm, Substituti on Allowed, TAB Valium 2011-06 Yes Mike 10 mg, 1 Mem oria mg oral 0-03 Neil tab, PO, l tablet 11:35: Abdunnur TID, PRN, He rmann 48 60 tab, muscle spasm, Substituti on Allowed, TAB Valium 2011-06 Yes Mike 10 mg, 1 Mem [...] l 11:06: Abdunnur Drug Form: Her leon LIQ, Dosing Weight 96.364, kg, ONCE, Start date: 03/29/12 6:06:00, Stop date: 03/29/12 6:06:00 magnesium 2011-06 Yes Mike 300 ml, Phong tali citrate 0-03 Neil Route: PO, l 11:06: Abdunnur Drug Form: Her leon 00 LIQ, Dosing Weight 96.364, kg, ONCE, Start date: 03/29/12 6:06:00, Stop date: 03/29/12 6:06:00 magnesium 2011- Yes Mike 300 ml, Phong tali citrate [...] 4 day, Stop date: 04/02/12 0:00:00 Toradol 2011-06 No Mike 10 mg, 1 Me moria mg oral 0-03 Neil tab, l tablet 11:00: Abdunnur Route: PO, H ermann 00 Drug form: TAB, Q6H, Dosing Weight 96.364, kg, Start date: 03/29/12 6:00:00, Duration: 4 day, Stop date: 04/02/12 0:00:00 Toradol 2011-06 No Mike 10 mg, 1 Me moria mg oral 0-03 Neil tab, l tablet 11:00: Abdunnur Route: PO, H ermann 00 Drug form: TAB, Q6H, Dosing Weight 96.364, kg, Start date: 03/29/12 6:00:00, Duration: 4 day, Stop date: 04/02/12 0:00:00 Toradol 2011-06 No Mike 10 mg, 1 [...] 30 day, Stop date: 04/27/12 8:00:00 heparin 2011- No Mike 5,000 Memoria 0-02 Neil unit, 1 l 21:00: Abdunnur mL, Route: Her leon 00 SUB-Q, Drug form: INJ, Q8H, Dosing Weight 96.364, kg, Start date: 03/28/12 16:00:00, Duration: 30 day, Stop date: 04/27/12 8:00:00 heparin 2011- No Mike 5,000 Memoria 0-02 Neil unit, [...] or times, Stop date: 03/29/12 6:00:00 dexamethaso 2011- No Mike 2 mg, 1 Me moria [...] Her leon capsule 06 Substituti on Allowed [place] 2011-06 Yes Mike 1 tab, PO, Memor ia 10/325 oral 0-02 Neil Q4H, PRN, l tablet 10:42: Abdunnur 30 tab, 2, H ermann 03 2, as needed for pain, Substituti on Allowed, Maintenanc e, TAB [place] 2011-06 Yes Mike 1 tab, PO, Memor ia 10/325 oral 0-02 Neil Q4H, PRN, l tablet 10:42: Abdunnur 30 tab, 2, H ermann 03 2, as needed for pain, Substituti on Allowed, Maintenanc e, TAB [place] 2011-06 Yes Mike 1 tab, PO, Memor ia 10/325 oral 0-02 Neil Q4H, PRN, l tablet 10:42: Abdunnur 30 tab, 2, H ermann 03 2, as needed for pain, Substituti on Allowed, Maintenanc e, TAB [place] 2011-06 Yes Mike 1 tab, PO, Memor [...] Neil Rate: 75 l 20:21: Abdunnur ml/hr, Irvin 00 Infuse over: 13.3 hr, Route: IV, kg, Total Volume: 1,000, Start date: 03/27/12 15:21:00, Duration: 30 day, Stop date: 04/26/12 15:20:00 NS 1,000 mL 2011-06 No Mike 1,000 mL, Memoria 0-01 Neil Rate: 75 l 20:21: Abdunnur ml/hr, [place] 00 Infuse over: 13.3 hr, Route: IV, kg, Total Volume: 1,000, Start date: 03/27/12 15:21:00, Duration: 30 day, Stop date: 04/26/12 15:20:00 NS 1,000 mL 2011-06 No Mike 1,000 mL, Memoria 0-01 Neil Rate: 75 l 20:21: Abdunnur ml/hr, [place] 00 Infuse over: 13.3 hr, Route: IV, kg, Total Volume: 1,000, Start date: 03/27/12 15:21:00, Duration: 30 day, Stop date: 04/26/12 15:20:00 NS 1,000 mL 2011-06 No Mike 1,000 mL, Memoria 0-01 Neil Rate: 75 l 20:21: Abdunnur ml/hr, [place] 00 Infuse over: 13.3 hr, Route: IV, [...] 30 day, Stop date: 04/26/12 15:09:00 dexamethaso 2011- No Mike 4 mg, 1 Me moria ne 0-01 Neil tab, l 17:00: Abdunnur Route: PO, Her leon 00 Drug form: TAB, Q6H, Dosing Weight 96.364, kg, Start date: 03/27/12 12:00:00, Duration: 4 doses or times, Stop date: 03/28/12 6:00:00 dexamethaso 2011- No Mike 4 mg, 1 Me moria ne 0-01 Neil tab, l 17:00: Abdunnur Route: PO, Her leon 00 Drug form: TAB, Q6H, Dosing Weight 96.364, kg, Start date: 03/27/12 12:00:00, Duration: 4 doses or times, Stop date: 03/28/12 6:00:00 dexamethaso 2011- No Mike 4 mg, 1 Me moria ne 0-01 Neil tab, l 17:00: Abdunnur Route: PO, Her leon 00 Drug form: TAB, Q6H, Dosing Weight 96.364, kg, Start date: 03/27/12 12:00:00, Duration: 4 doses or times, Stop date: 03/28/12 6:00:00 dexamethaso 2011- No Mike 4 mg, 1 Me moria ne 0-01 Neil tab, l 17:00: Abdunnur Route: PO, Her leon 00 Drug form: TAB, Q6H, Dosing Weight 96.364, kg, Start date: 03/27/12 12:00:00, Duration: 4 doses or times, Stop date: 03/28/12 6:00:00 hydromorpho 2011- No Marcella 0.5 mg, Memoria ne 0-01 F Gomez 0.25 mL, l 16:05: Route: Irvin 00 IVP, Drug form: INJ, Q5Min, Dosing Weight [...] 30 day, Stop date: 04/26/12 11:04:00 naloxone 2011- No Marcella 0.04 mg, Memoria 0-01 F [...] F Gomez 0.25 mL, l 16:05: Route: [place] IVP, Drug form: INJ, Q5Min, Dosing Weight [...] 30 day, Stop date: 04/26/12 11:04:00 naloxone 2011- No Marcella 0.04 mg, Memoria 0-01 F [...] F Gomez 0.25 mL, l 16:05: Route: [place] IVP, Drug form: INJ, Q5Min, Dosing Weight [...] F Gomez 0.1 mL, l 16:05: Route: [place] 00 IVP, Drug form: INJ, Q2MIN, Dosing [...] F Gomez 0.25 mL, l 16:05: Route: [place] IVP, Drug form: INJ, Q5Min, Dosing Weight [...] 30 day, Stop date: 04/26/12 11:04:00 naloxone 2011- No Marcella 0.04 mg, Memoria 0-01 F Gomez 0.1 mL, l 16:05: Route: Irvin 00 IVP, Drug form: INJ, Q2MIN, Dosing Weight 96.364, kg, PRN Narcotic Reversal, Start date: 03/27/12 11:05:00, Duration: 8 doses or times, Stop date: 03/28/12 0:00:00 ondansetron 2011-06 No Marcella 4 mg, 2 Memoria 0-01 F Gomez mL, Route: l 16:05: IVP, Drug Irvin 00 form: INJ, ONCE, Dosing Weight 96.364, [...] 30 day, Stop date: 04/25/12 21:00:00 Saline 2011-06 No Mike 5 ml, Memoria Flush 0.9% 0-01 Neil Route: l 14:00: Abdunnur IVP, Drug Herm janine 00 Form: INJ, Dosing Weight 96.364, kg, Q12H, Start date: 03/27/12 9:00:00, Duration: 30 day, Stop date: 04/25/12 21:00:00 docusate 2011-06 No Mike 100 mg, 1 Mem oria sodium 100 0-01 Neil cap, l mg oral 14:00: Abdunnur Route: PO, [place] capsule 00 Drug form: CAP, Q12H, Dosing Weight 96.364, kg, Start date: 03/27/12 9:00:00, Duration: 30 day, Stop date: 04/25/12 21:00:00 senna 2011-06 No Mike 8.6 mg, 1 Memori a 0-01 Neil tab, l 14:00: Abdunnur Route: PO, Her leon 00 Drug Form: TAB, Dosing Weight 96.364, kg, Q12H, Start date: 03/27/12 9:00:00, Duration: 30 day, Stop date: 04/25/12 21:00:00 Saline 2011-06 No Mike 5 ml, Memoria Flush 0.9% 0-01 Neil Route: l 14:00: Abdunnur IVP, Drug Herm janine 00 Form: INJ, Dosing Weight 96.364, kg, Q12H, Start date: 03/27/12 9:00:00, Duration: 30 day, Stop date: 04/25/12 21:00:00 docusate 2011-06 No Mike 100 mg, 1 Mem oria sodium 100 0-01 Neil cap, l mg oral 14:00: Abdunnur Route: PO, [place] capsule 00 Drug form: CAP, Q12H, Dosing Weight 96.364, kg, Start date: 03/27/12 9:00:00, Duration: 30 day, Stop date: 04/25/12 21:00:00 senna 2011-06 No Mike 8.6 mg, 1 Memori a 0-01 Neil tab, l 14:00: Abdunnur Route: PO, Her leon 00 Drug Form: TAB, Dosing Weight 96.364, kg, Q12H, Start date: 03/27/12 9:00:00, Duration: 30 day, Stop date: 04/25/12 21:00:00 Saline 2011-06 No Mike 5 ml, Memoria [...] Route: l Chloride 13:00: Abdunnur IVPB, Drug [place] 0.9% IV 100 00 form: INJ, mL [...] Route: l Chloride 13:00: Abdunnur IVPB, Drug Irvin 0.9% IV 100 00 form: INJ, mL [...] Route: l Chloride 13:00: Abdunnur IVPB, Drug Irvin 0.9% IV 100 00 form: INJ, mL [...] Route: l Chloride 13:00: Abdunnur IVPB, Drug Irvin 0.9% IV 100 00 form: INJ, mL [...] Duration: 30 day, Stop date: 04/26/12 4:00:00 Saline 2011-06 No Mike 5 ml, Memoria [...] 30 day, Stop date: 04/26/12 6:07:00 Dextrose 2011- No Mike 6.25 gm, Phong tali 50% [...] Neil 0.5 mL, l 11:08: Abdunnur Route: [place] 00 IVPB, Drug form: INJ, Q6H, Dosing [...] l tablet 11:08: Abdunnur Route: PO, H erm 00 Drug form: TAB, Q12H, Dosing Weight [...] l tablet 11:08: Abdunnur Route: PO, H erm Drug form: TAB, Q12H, Dosing Weight 96.364, [...] l tablet 11:08: Abdunnur Drug Form: H erm TAB, Dosing Weight 96.364, kg, Q4H, PRN Pain Score 1-5, Start date: 03/27/12 6:08:00, Duration: 30 day, Stop date: 04/26/12 6:07:00 Dextrose 2011-06 No Mike 6.25 gm, Phong tali 50% Syringe 0-01 Neil 12.5 mL, l 11:08: Abdunnur Route: [place] 00 IVP, Drug Form: INJ, Dosing Weight [...] 30 day, Stop date: 04/26/12 6:07:00 Percocet 2011- No Mike 1 tab, Memori a 5/325 oral 0-01 Neil Route: PO, l tablet 11:08: Drug Form: H ermann 00 TAB, Dosing [...] Neil 0.5 mL, l 11:08: Abdunnur Route: [place] 00 IVPB, Drug form: INJ, Q6H, Dosing [...] or times, Stop date: 03/27/12 19:17:00 Lactated 2011- No Mike 1,000 mL, Mem oria Ringers [...] PRN, l tablet 19:55: for pain, Fly plunkett 48 Substituti on Allowed, Maintenanc e, TAB Vicodin No 1 tab, PO, Phong tali 5/500 oral 9-25 Q4H, PRN, l tablet 19:55: for pain, Fly pl[place]ett 48 Substituti on Allowed, Maintenanc e, TAB Vicodin No 1 tab, PO, Phong tali 5/500 oral 9-25 Q4H, PRN, l tablet 19:55: for pain, Fly plunkett 48 Substituti on Allowed, Maintenanc e, TAB Vicodin No 1 tab, PO, Phong tali 5/500 oral 9-25 Q4H, PRN, l tablet 19:55: for pain, Fly plunkett 48 Substituti on Allowed, Maintenanc e, TAB Immunizations Ordered Immunization Filled Immunization Date Status Commen ts Source Name Name influenza virus 2012-03-28 Completed [facility], inactivated 12:40:00 [facility] janine influenza virus 2012-03-28 Completed [facility] vaccine, inactivated 12:40:00 [facility] janine influenza virus 2012-03-28 Completed [facility] vaccine, inactivated 12:40:00 [facility] janine influenza virus 2012-03-28 Completed [facility] vaccine, inactivated 12:40:00 [facility] janine Vital Signs Vital Name Observation Time Observation Value Comments Source Systolic blood 2021-05-19 22:01:00 124 mm[Hg] Univer sity of pressure [facility] Diastolic blood 2021-05-19 22:01:00 71 mm[Hg] [facility] Heart rate 2021-05-19 22:01:00 114 /min [facility] Body temperature 2021-05-19 22:01:00 36.78 Evelyn [facility] Respiratory rate 2021-05-19 22:01:00 18 /min [facility] Oxygen saturation in 2021-05-19 22:01:00 97 /min [facility] blood by [facility] Pulse oximetry Branch Body weight 2021-05-18 01:41:00 97.523 kg [facility] Branch BMI 2021-05-18 01:41:00 39.32 kg/m2 [facility] Body height 2021-05-17 21:25:00 157.5 cm [facility] Systolic blood 2021-05-17 20:57:00 148 mm[Hg] Univer sity of pressure [facility] Diastolic blood 2021-05-17 20:57:00 93 mm[Hg] Unive rsity of [facility] Heart rate 2021-05-17 20:57:00 123 /min [facility] Body temperature 2021-05-17 20:57:00 36.28 Evelyn [facility] Respiratory rate 2021-05-17 20:57:00 32 /min [facility] Body height 2021-05-17 20:57:00 157.5 cm [facility] Body weight 2021-05-17 20:57:00 104.327 kg [facility] BMI 2021-05-17 20:57:00 42.07 kg/m2 [facility] Oxygen saturation in 2021-05-17 20:57:00 92 /min [facility] Arterial blood by [facility] Pulse oximetry Branch Systolic blood 2020-07-29 20:28:00 132 mm[Hg] Univer [facility]ity [facility] Diastolic blood 2020-07-29 20:28:00 80 mm[Hg] Unive rsity of pressure [facility] Heart rate 2020-07-29 20:28:00 100 /min [facility] Body temperature 2020-07-29 20:28:00 36.17 Evelyn [facility] Respiratory rate 2020-07-29 20:28:00 22 /min [facility] Oxygen saturation in 2020-07-29 20:28:00 98 /min [facility] Arterial blood by [facility] Pulse oximetry Branch Body weight 2020-07-29 18:21:00 98.431 kg [facility] BMI 2020-07-29 18:21:00 39.69 kg/m2 [facility] Systolic blood 2020-07-24 20:27:00 118 mm[Hg] [facility] Diastolic blood 2020-07-24 20:27:00 72 mm[Hg] Unive rsity of [facility] Heart rate 2020-07-24 20:27:00 106 /min [facility] Body temperature 2020-07-24 20:27:00 36.72 Evelyn [facility] Respiratory rate 2020-07-24 20:27:00 26 /min [facility] Body height 2020-07-24 20:27:00 157.5 cm [facility] Body weight 2020-07-24 20:27:00 98.431 kg [facility] BMI 2020-07-24 20:27:00 39.69 kg/m2 [facility] Oxygen saturation in 2020-07-24 20:27:00 100 /min [facility] Arterial blood by [place] [employer] [facility] Pulse oximetry Branch Systolic blood 2020-07-05 21:11:00 112 mm[Hg] [facility] Diastolic blood 2020-07-05 21:11:00 77 mm[Hg] Unive rsity of [facility] Heart rate 2020-07-05 21:11:00 98 /min [facility] Body temperature 2020-07-05 21:11:00 36.5 Evelyn [facility] Respiratory rate 2020-07-05 21:11:00 20 /min [facility] Body height 2020-07-05 21:11:00 157.5 cm [facility] Body weight 2020-07-05 21:11:00 100.245 kg [facility] BMI 2020-07-05 21:11:00 40.42 kg/m2 [facility] Oxygen saturation in 2020-07-05 21:11:00 98 /min [facility] Arterial blood by [employer] Pulse oximetry Branch Systolic blood 2019-11-12 05:00:00 106 mm[Hg] Univer [facility] Diastolic blood 2019-11-12 05:00:00 47 mm[Hg] Unive rsity of pressure [facility] Heart rate 2019-11-12 05:00:00 89 /min [facility] ty [facility] Respiratory rate 2019-11-12 05:00:00 16 /min Univ ersity of [facility] Oxygen saturation in 2019-11-12 05:00:00 96 /min [facility] Arterial blood by [facility] Pulse oximetry Branch Body weight 2019-11-12 03:24:00 117.935 kg [facility] BMI 2019-11-12 03:24:00 47.55 kg/m2 [facility] Systolic blood 2019-11-12 05:00:00 106 mm[Hg] Univer sity of pressure [facility] Diastolic blood 2019-11-12 05:00:00 47 mm[Hg] Unive rsity of pressure [facility] Heart rate 2019-11-12 05:00:00 89 /min Universi [facility] Respiratory rate 2019-11-12 05:00:00 16 /min [facility] Oxygen saturation in 2019-11-12 05:00:00 96 /min [facility] Arterial blood by [facility] Pulse oximetry Branch Body weight 2019-11-12 03:24:00 117.935 kg [facility] BMI 2019-11-12 03:24:00 47.55 kg/m2 [facility] Systolic (mm Hg) 2016-11-12 21:42:00 Phong rial [place] Diastolic (mm Hg) 2016-11-12 21:42:00 Mem orial [place] Heart Rate 2016-11-12 21:42:00 [facility] Systolic (mm Hg) 2016-11-12 21:23:00 Phong rial [place] Diastolic (mm Hg) 2016-11-12 21:23:00 Mem orial [place] Heart Rate 2016-11-12 21:23:00 [facility] [place] Weight 2016-11-12 19:15:00 [facility] Temperature Oral (F) 2016-11-12 19:15:00 98.1 F [facility] [place] Systolic (mm Hg) 2016-11-12 19:15:00 Phong rial [place] Diastolic (mm Hg) 2016-11-12 19:15:00 Mem orial [place] Respitory Rate 2016-11-12 19:15:00 Memori al [place] Heart Rate 2016-11-12 19:15:00 [facility] [place] Respitory Rate 2012-04-20 12:45:00 Memori al [place] Heart Rate 2012-04-20 12:45:00 [facility] [place] Systolic (mm Hg) 2012-04-20 12:45:00 Phong rial [place] Diastolic (mm Hg) 2012-04-20 12:45:00 Mem orial [place] Temperature Oral (F) 2012-04-20 12:45:00 98.4 F [facility] [place] Diastolic (mm Hg) 2012-04-20 07:59:00 Mem orial [place] Systolic (mm Hg) 2012-04-20 07:59:00 Phong rial [place] Respitory Rate 2012-04-20 07:59:00 Memori al [place] Systolic (mm Hg) 2012-04-20 04:32:00 Phong rial [place] Respitory Rate 2012-04-20 04:32:00 Memori [facility] [place] Diastolic (mm Hg) 2012-04-20 04:32:00 Mem [facility] [place] Temperature Oral (F) 2012-04-20 04:32:00 99.5 F [facility] [place] Heart Rate 2012-04-19 21:35:00 [facility] [place] Temperature Oral (F) 2012-04-19 21:35:00 97.1 F [facility] [place] Weight 2012-04-12 22:15:00 [facility] [place] Height 2012-04-12 22:15:00 157.48 cm [facility] [place] Temperature Oral (F) 2012-04-06 12:00:00 97.8 F [facility] [place] Respitory Rate 2012-04-06 12:00:00 Mem[facility] [place] Heart Rate 2012-04-06 12:00:00 [facility] [place] Diastolic (mm Hg) 2012-04-06 12:00:00 Mem orial [place] Systolic (mm Hg) 2012-04-06 12:00:00 Phong rial [place] Heart Rate 2012-04-06 09:51:00 [facility] [place] Diastolic (mm Hg) 2012-04-06 09:51:00 Mem o[facility] [place] Systolic (mm Hg) 2012-04-06 09:51:00 Phong rial [place] Respitory Rate 2012-04-06 09:51:00 Memori al [place] Temperature Oral (F) 2012-04-06 09:51:00 97.8 F [facility] [place] Heart Rate 2012-04-06 04:00:00 [facility] [place] Temperature Oral (F) 2012-04-06 04:00:00 96.9 F [facility] [place] Systolic (mm Hg) 2012-04-06 04:00:00 Phong rial [place] Diastolic (mm Hg) 2012-04-06 04:00:00 Mem orial [place] Respitory Rate 2012-04-06 04:00:00 Memori al [place] Weight 2012-04-05 16:44:00 [facility] [place] Height 2012-04-05 16:44:00 157.48 cm [facility] [place] Diastolic (mm Hg) 2012-03-29 13:22:00 Mem orial [place] Heart Rate 2012-03-29 13:22:00 [facility] [place] Systolic (mm Hg) 2012-03-29 13:22:00 Phong rial [place] Respitory Rate 2012-03-29 13:22:00 Memori al [place] Temperature Oral (F) 2012-03-29 13:22:00 96.8 F [facility] [place] Temperature Oral (F) 2012-03-29 09:39:00 98.6 F [facility] [place] Respitory Rate 2012-03-29 09:39:00 Memori al [place] Systolic (mm Hg) 2012-03-29 09:39:00 Phong rial [place] Diastolic (mm Hg) 2012-03-29 09:39:00 Mem orial [place] Heart Rate 2012-03-29 09:39:00 [facility] [place] Diastolic (mm Hg) 2012-03-29 05:20:00 Mem orial [place] Systolic (mm Hg) 2012-03-29 05:20:00 Phong rial [place] Temperature Oral (F) 2012-03-29 05:20:00 98.6 F [facility] [place] Respitory Rate 2012-03-29 05:20:00 Memori al [place] Heart Rate 2012-03-29 05:20:00 [facility] [place] Weight 2012-03-22 13:20:00 [facility] [place] Height 2012-03-22 13:20:00 157.48 cm [facility] [place] Procedures Procedure Date / Time Performing Clinician Source Performed BASIC METABOLIC PANEL 2021-05-18 10:46:00 Torey Zapata [facility] (NA, K, CL, CO2, GLUCOSE, Medica l Branch BUN, CREATININE, CA) CBC WITH DIFF 2021-05-18 10:46:00 [facility] Torey [place] o f [facility] RESPIRATORY PANEL BY PCR 2021-05-18 04:59:00 Clarita Perez [facility] XR CHEST 1 VW 2021-05-17 21:45:56 Paola Crawford [facility] COMP. METABOLIC PANEL 2021-05-17 21:34:00 Paola Crawford [facility] ([id number]) Medical Branch CBC WITH DIFF 2021-05-17 21:34:00 Paola Crawford [facility] COVID-19 (ID NOW RAPID 2021-05-17 21:34:00 Paola Crawford Un [facility] TESTING) Medical Branch LAB ONLY COVID 2021-05-17 21:34:00 Paola Crawford [facility] INTERPRETATION [facility] CONSENT/REFUSAL FOR 2021-05-17 21:27:54 Doctor Unadaniella, [facility] DIAGNOSIS AND TREATMENT [facility] [place] XR CHEST 1 VW 2020-07-24 22:37:10 Renetta Meza [facility] BASIC METABOLIC PANEL 2020-07-24 22:01:00 Renetta Meza [facility] (NA, K, CL, CO2, GLUCOSE, Medica l Branch BUN, CREATININE, CA) CBC WITH DIFF 2020-07-24 22:01:00 Renetta Meza [facility] D-DIMER 2020-07-24 22:01:00 Renetta Meza [facility] ADC,CLC OR LCC ONLY - 2020-07-24 21:55:00 Renetta Meza [facility] INFLUENZA A & B DIRECT Medical [place] ANTIGEN POCT TEST 2020-07-24 21:55:00 Renetta Meza [facility] NOTICE OF PRIVACY 2020-07-24 20:19:40 Doctor Patricia, [facility] PRACTICES [facility] CONSENT/REFUSAL FOR 2020-07-24 20:19:28 Doctor Patricia [facility] DIAGNOSIS AND TREATMENT [facility] XR FOOT <3 VW RIGHT 2020-07-05 23:12:53 [facility] 3 VW LEFT 2019-09-13 16:20:00 Mya Syed [facility] XR LUMBAR SPINE 2 VW 2019-09-13 16:20:00 Mya Syed [facility] hospital ASSIGNMENT OF BENEFITS 2019-09-13 15:19:29 Doctor Unassigned, [facility] AGREEMENTS AUTHORIZATIONS 2019-08-22 06:01:00 Doctor Unassigned, [facility] AND IRREVOCABLE [facility] ASSIGNMENTS (FORM 2001) AGREEMENTS AUTHORIZATIONS 2019-08-07 06:01:00 Doctor Unassigned, [facility] AND IRREVOCABLE [facility] ASSIGNMENTS (FORM 2001) Cranial decompression [facility] Encounters Start End Encounter Admission Attending Care Care Encounter Source Date/Time Date/Time Type Type Clinicians Facility Department ID 2022-07-02 OD BIJU IVY [id number] Me moria 20:26:56 00 yaron Bryan 2021-07-28 OD BIJU IVY [id number] Me moria 20:52:01 00 yaron Bryan 2021-04-23 Emergency [facility] [id number] Univers 21:16:01 [facility] 2022-07-02 2022-07-02 Outpatient R UNKNOWN, [facility] [id number] Univers 20:00:00 20:00:00 ATTENDING [facility] 2021-05-17 2021-05-19 Outpatient X CHRIS [facility] [id number] Univers 15:33:00 17:50:00 CLARITA [facility] 2021-05-17 2021-05-19 Emergency Paola Crawford [facility] 1.2.8 40.114 [id number] Univers 15:33:00 17:50:00 Torey Zapata [id number] [facility] Clarita Perez 4.2.7.2.686 [facility] [id number] [place] [address] Branch 2021-05-17 2021-05-17 Outpatient R ADELIA, [facility] [id number] Univers 14:45:00 15:02:52 PAOLA lowry o f [facility] 2021-05-17 2021-05-17 Nurse Paola Medeiros [facility] 1.2.840 .114 [id number] Univers 14:42:50 15:02:[address] [facility] 350.1.1 3.10 ity of [place] 4.2.7.2.686 Maninder as TUNG?BLEA [phone] Ne vianca MAN [address] [place] [facility] 2020-09-15 2020-09-15 Patient Parvez [facility] 1.2.840.114 [id number] Univers 00:00:00 00:00:00 Outreach Roberto PRIMARY 350.1.13.10 i ty of [facility] [place].2.[place] [id number] Ne vianca [address] [place] 2020-07-29 2020-07-29 Nurse Therapy, c Covid Infusion [facility] 1.2.840.114 [id number] Univers 08:22:15 18:54:25 Visit Renetta Meza 350.1.13.10 ity of [place] AT [phone] Ne kartiknarcisa CRAVEN 053 [facility] 2020-07-29 2020-07-29 Outpatient R SUSANA [facility] [id number] Univers 13:00:00 13:00:00 RENETTA itwally of [facility] 2020-07-24 2020-07-24 [facility] 1.2.076.323 [id number] Univers 14:33:00 18:47:00 Renetta Saldana 350.1.13.10 ity of [place] [id number] [facility] 084 [place] 2020-07-24 2020-07-24 Emergency X [facility] ERT [id number] Univers 14:33:00 18:47:00 RENETTA lowry of [facility] 2020-07-24 2020-07-24 Orders Doctor MCKEON 1.2.840.114 [id number] Univers 00:00:00 00:00:00 Only Unassigned, DIDIER 350.1.13.10 ity of [place] [facility] 4.2.7.2.686 Maninder as [phone] [facility] 009 Branch 2020-07-05 2020-07-05 Hospital Bret Zavaleta 1.2.840.114 [id number] Univers 15:51:19 23:59:00 Encounter Amber A Pediatric 350.1.13.10 ity of [place] [id number] [facility] Primary 808 Branch [facility] 2020-07-05 2020-07-05 Outpatient R UNKNOWN, [facility] [id number] Univers 16:15:00 16:15:00 ATTENDING ity of [facility] 2020-07-05 2020-07-05 Urgent Amber Zavaleta 1.2.840.114 [id number] Univers 15:03:33 15:18:33 Care Unknown, Attending Pediatric 350.1.13. 10 ity of [place] [id number] [facility] Primary 370 [facility] 2019-11-11 2019-11-12 Emergency Sujata, TRAUMA 1.2.398.136 [id number] 22:23:46 02:31:00 Stephen E CENTER 350.1.13.10 4.2.7.2.686 [id number] [facility] 2019-11-11 2019-11-12 Emergency Sujata, TRAUMA 1.2.233.630 [id number] Univers 22:23:46 02:31:00 Stephen E CENTER 350.1.13.10 [place] [id number] [facility] 014 Branch 2019-09-13 2019-09-13 [facility] Radiology [facility] 1.2.840.114 [id number] 10:25:00 23:59:00 Encounter Rosie 350.1.13.10 [place] 4.2.7.2.686 [place] [id number] [id number] 2019-09-13 2019-09-13 [facility] Radiology [facility] 1.2.840.114 [id number] Univers 10:25:00 23:59:00 Encounter Rosie 350.1.13.10 ity of [place].7.2.[place] [id number] [address] 2019-09-13 2019-09-13 Outpatient R RADIOLOGY [facility] RAD [id number] Univers 10:24:31 10:24:00 ity of [facility] 2019-09-13 2019-09-13 Hospital Radiology [facility] 1.2.840.114 [id number] 10:24:00 10:24:00 Encounter Rosie 350.1.13.10 [place] 4.2.7.2.686 [place] [id number] 80 2019-09-13 2019-09-13 [facility] Radiology [facility] 1.2.840.114 [id number] Univers 10:24:00 10:24:00 Encounter Rosie 350.1.13.10 ity of [place] 4.2.7.2.686 [facility] [phone] [address] 2019-09-13 2019-09-13 Orders Doctor MCKEON 1.2.840.114 [id number] 00:00:00 00:00:00 Only Unassigned, DIDIER 350.1.13.10 [place] [facility] 4.2.7.2.686 [id number] [facility] 2019-09-13 2019-09-13 Orders Doctor MCKEON 1.2.840.114 [id number] Univers 00:00:00 00:00:00 Only Unassigned, DIDIER 350.1.13.10 ity of [place] [facility] 4.2.7.2.686 Maninder as [id number] [address] 2019-08-22 2019-08-22 Managed Services Consultant 2, Adc Lab [facility] 1.2.840.114 [id number] Univers 15:01:15 15:16:15 Visit Anastacio Sibley 350.1.13 .10 ity of [place] 4.2.7.2.686 [facility] Professio [id number] Ne dical [address] 2019-08-22 2019-08-22 Outpatient R ANASTACIO SIBLEY [facility] [id number] Univers 15:15:00 15:15:00 ANASTACIO SIBLEY ity [facility] 2019-08-22 2019-08-22 Orders Doctor LINDA Smith2.840.114 [id number] Univers 00:00:00 00:00:00 Only Unassigned, DIDIER 350.1.13.10 ity of [place] [facility] 4.2.7.2.686 Maninder as [phone] [address] 2019-08-22 2019-08-22 Orders Doctor LINDA 1.2.840.114 [id number] 00:00:00 00:00:00 Only Unassigned, DIDIER 350.1.13.10 [facility] 4.2.7.2.686 [id number] [facility] 2019-08-20 2019-08-20 [facility] 1.2.840.114 [id number] [facility] 00:00:00 00:00:00 Anastacio Saldana 350.1.13.10 ity of [place] [phone] [facility] [address] [place] [facility] 2019-08-20 2019-08-20 Telephone [facility] 1.2.840.114 [id number] 00:00:00 00:00:00 Anastacio Saldana 350.1.13.10 [place] 4.2.7.2.686 Professio [phone] [address] 2019-08-08 2019-08-08 [facility] 1.2.840.114 [id number] [facility] 00:00:00 00:00:00 Anastacio Saldana 350.1.13.10 ity of [place].7.2.[place] Profess[place] [phone] [facility] 0[address] [place] [facility] 2019-08-07 2019-08-07 Managed Services Consultant 2, Adc Lab [facility] 1.2.840.114 [id number] [facility] 11:16:18 11:31:18 Visit Anastacio Sibley 350.1.13 .10 ity of [place] 4[place]2.[place].2.[place] [phone] [facility] [address] [facility] 2019-08-07 2019-08-07 Telephone [facility] 1.2.840.114 [id number] [facility] 00:00:00 00:00:00 Anastacio Saldana 350.1.13.10 ity of [place] 4.2.7.2.[place] [phone] Ne dical nal 0[address] [place] [facility] 2019-08-07 2019-08-07 Orders Doctor LINDA 1.2.840.114 [id number] Univers 00:00:00 00:00:00 Only Unassigned, DIDIER 350.1.13.10 [facility] 4.2.7.2.686 Maninder as [phone] [facility] jaya [address] [place] 2019-08-06 2019-08-06 Managed Services Consultant 2, Adc Lab [facility] 1.2.840.114 [id number] Univers 10:13:46 10:28:46 Visit Anastacio Sibley 350.1.13 .10 ity of [place] 4.2.7.2.[place] [phone] Ne dical nal [address] [place] [facility] 2019-08-06 2019-08-06 Letter Toñito [facility] 1.2.840.114 [id number] Univers 00:00:00 00:00:00 (Out) Anastacio Saldana 350.1.13.10 ity of [place] 4[place].7.2.[place] [phone] Ne dical nal [address] [place] [facility] 2016-11-12 2016-11-12 Emergency nullFlavo [facility] [id number] Memoria 18:43:00 21:48:00 r [place] 00 [facility] 2016-11-12 2016-11-12 Emergency nullFlavo [facility] [id number] Memoria 18:43:00 21:48:00 r [place] 00 [facility] 2016-11-12 2016-11-12 Outpatient Karissa, 9 [facility] [id number] 13:43:00 16:48:00 Lauren 00 Tasneem Ruiz 2012-04-12 2012-04-20 Inpatient nullFlavo [facility] [id number] Memoria 17:50:00 11:11:00 r Medical 02 l [facility] 2012-04-12 2012-04-20 Inpatient nullFlavo [facility] [id number] Memoria 17:50:00 11:11:00 r Medical 02 l [facility] 2012-04-05 2012-04-06 OU nullFlavo [facility] [id number] Memoria 13:36:00 10:45:00 r Medical [facility] 2012-04-05 2012-04-06 OU nullFlavo [facility] [id number] Memoria 13:36:00 10:45:00 r Medical 01 [facility] 2012-03-27 2012-03-29 Inpatient nullFlavo [facility] [id number] Memoria 05:18:00 11:00:00 r Medical [facility] 2012-03-27 2012-03-29 Inpatient nullFlavo [facility] [id number] Memoria 05:18:00 11:00:00 r Medical [facility] Results Test Description Test Time Test Comments Results Result Comments Source Basic Metabolic Panel (NA, K, CL, CO2, GLUCOSE, BUN, 2021-04 11:15:54 CREATININE, CA) Test Item Value Reference Range Interpretation Comme nts NA (test code = 9726408338) 137 mmol/L 135-145 K (test code = 8713632546) 4.4 mmol/L 3.5-5.0 CL (test code = 1863041096) 104 mmol/L 98-108 CO2 TOTAL (test code = 5148815863) 24 mmol/L 23-31 AGAP (test code = 4458046321) 2-16 BUN (test code = 9233892546) 8 mg/dL 7-23 GLUCOSE (test code = 2417993008) 184 mg/dL 70-110 H CREATININE (test code = 0.70 mg/dL 0.50-1.04 1302847669) CALCIUM (test code = 0456863261) 8.9 mg/dL 8.6-10.6 eGFR (test code = 0426050715) mL/min/1.73m2 GRAYSON (test code = GRAYSON) Association [...] tests). Lab Interpretation (test code = Abnormal 56253-7) [facility] with [id number] 10:58:09 Test Item Value Reference Range Interpretation Comments WBC (test code = See_Comment [Automated 5190-2) message] The system which generated this result transmit toño reference range : 4.30 - 11.10 10*3/?L. The reference range was not used to interpret this result as normal/abnormal . RBC (test code = See_Comment [Automated 539-8) message] The system which generated this result [...] RDW-SD (test code = 44.3 fL 39.0-49.9 13424-5) RDW-CV (test code = 15.9 % 12.0-15.5 H 788-0) PLT (test code = See_Comment [Automated 777-3) message] The system which generated this result transmit toño reference range : 166 - 358 10*3/ ?L. The reference range was not u sed to interpret th is result as normal/abnormal . MPV (test code = 10.1 fL 9.5-12.9 01163-9) NRBC/100 WBC (test See_Comment [Automat ed code = 4554127351) message] The system which generated this result transmit toño reference range : 0.0 - 10.0 /100 WBCs. The reference range was not used to interpret this result as normal/abnormal . NRBC x10^3 (test code <0.01 See_Comment [Auto mated = 6089937921) message] The system which generated this result transmit toño reference range : 10*3/?L. The reference range was not used to interpret this result as normal/abnormal . GRAN MAT (NEUT) % 95.3 % (test code = 770-8) IMM GRAN % (test code 0.30 % = 7576973725) LYMPH % (test code = 3.5 % 736-9) MONO % (test code = 0.7 % 5905-5) EOS % (test code = 0.0 % 713-8) BASO % (test code = 0.2 % 706-2) GRAN MAT x10^3(ANC) 10.39 10*3/uL 1.88-7.09 H (test code = 4751771764) IMM GRAN x10^3 (test 0.03 10*3/uL 0.00-0.06 code = 2381963102) LYMPH x10^3 (test code 0.38 10*3/uL 1.32-3.29 L = 731-0) MONO x10^3 (test code 0.08 10*3/uL 0.33-0.92 L = 742-7) EOS x10^3 (test code = <0.03 0.03-0.39 L 711-2) BASO x10^3 (test code <0.03 0.01-0.07 = 704-7) Lab Interpretation Abnormal (test code = 20480-8) [facility]. METABOLIC PANEL (80218)2021-05-17 21:58:35 Test Item Value Reference Range Interpretation Comments NA (test code = 137 mmol/L 135-145 0767929903) K (test code = 3.9 mmol/L 3.5-5.0 9849085000) CL (test code = 103 mmol/L 98-108 4815380298) CO2 TOTAL (test code = 29 mmol/L 23-31 2139125299) AGAP (test code = 2-16 1839621754) BUN (test code = 7 mg/dL 7-23 8423002853) GLUCOSE (test code = 139 mg/dL 70-110 H 6910224506) CREATININE (test code = 0.82 mg/dL 0.50-1.04 1107139454) TOTAL BILI (test code = 0.3 mg/dL 0.1-1.2 7632080391) CALCIUM (test code = 9.0 mg/dL 8.6-10.6 4530696541) T PROTEIN (test code = 6.7 g/dL 6.3-8.2 0988408315) ALBUMIN (test code = 3.8 g/dL 3.5-5.0 9183900750) ALK PHOS (test code = 68 U/L 34-122 5393002702) ALTv (test code = 17 U/L 5-35 1742-6) AST(SGOT) (test code = 22 U/L 13-40 2327531969) eGFR (test code = mL/min/1.73m2 8191481124) GRAYSON (test code = GRAYSON) Association of [...] tests). Lab Interpretation Abnormal (test code = 47553-9) [facility] WITH [id number] 21:43:54 Test Item Value Reference Range Interpretation Comments WBC (test code = See_Comment [Automated 1116-2) message] The sy stem which generated this result transmitted reference range : 4.30 - 11.10 10*3/?L. The reference range was not used to interpret this result as normal/abnormal . RBC (test code = See_Comment [Automated 9-8) message] The sy stem which generated this [...] RDW-SD (test code = 44.0 fL 39.0-49.9 71629-5) RDW-CV (test code = 15.8 % 12.0-15.5 H 788-0) PLT (test code = See_Comment [Automated 677-3) message] The sy stem which generated this result transmitted reference range : 166 - 358 10*3/ ?L. The reference r nan was not used to interpret this result as normal/abnormal . MPV (test code = 9.7 fL 9.5-12.9 42508-5) NRBC/100 WBC (test See_Comment [Automat ed code = 3766221916) message] The system which generated this result transmitted reference range : 0.0 - 10.0 /100 WBCs. The refer ence range was not u sed to interpret th is result as normal/abnormal . NRBC x10^3 (test code <0.01 See_Comment [Auto mated = 2228883146) message] The s ystem which generated this result transmitted reference range : 10*3/?L. The reference range was not used to interpret this result as normal/abnormal . GRAN MAT (NEUT) % 64.1 % (test code = 770-8) IMM GRAN % (test code 0.30 % = 3372142700) LYMPH % (test code = 21.7 % 736-9) MONO % (test code = 6.5 % 5905-5) EOS % (test code = 6.8 % 713-8) BASO % (test code = 0.6 % 706-2) GRAN MAT x10^3(ANC) 4.61 10*3/uL 1.88-7.09 (test code = 9588018198) IMM GRAN x10^3 (test <0.03 0.00-0.06 code = 8203458598) LYMPH x10^3 (test code 1.56 10*3/uL 1.32-3.29 = 731-0) MONO x10^3 (test code 0.47 10*3/uL 0.33-0.92 = 742-7) EOS x10^3 (test code = 0.49 10*3/uL 0.03-0.39 H 711-2) BASO x10^3 (test code 0.04 10*3/uL 0.01-0.07 = 704-7) Lab Interpretation Abnormal (test code = 03293-7) [facility] [id number] 00:07:25Impression: No acute abnormalities evident. RL: 460 End of Report Ordering Physician: TORIBIO MEZA History: ?Short of breath Technique: Chest, single view Comparison: None Findings: ? The lungs are clear. No pleural effusions are evident. Heart size isnormal. The superior mediastinal silhouette is unremarkable for age. Noacute bony abnormalities are evident. [facility], Radiant Results Inft User - 07/24/2020 6:08 PM CSTOrdering Physician:RENETTA Gomez DREVERHistory: Short of breathTechnique: Chest, single viewComparison: NoneFindings: The lungs are clear. No pleural effusions are evident. Heart size isnormal. The superior mediastinal silhouette is unremarkable for age. Noacute bony abnormalities are evident.IMPRESSIONImpression:No acute abnormalities evident.RL: 460End of Report [facility]-[id number] 22:48:00 Test Item Value Reference Interpretation Comments Range D-DIMER (test code = <0.27 See_Comment [Autom ated 6704025895) message] The system which generated this result [...] diagnosis. Lab Interpretation Normal (test code = 74428-1) [facility] METABOLIC PANEL (NA, K, CL, CO2, GLUCOSE, BUN, CREATININE, CA)2020-07-24 22:44:00 Test Item Value Reference Range Interpretation Comments NA (test code = 136 mmol/L 135-145 7091412123) K (test code = 4.2 mmol/L 3.5-5 2434858356) CL (test code = 100 mmol/L 98-108 5260433961) CO2 TOTAL (test code = 29 mmol/L 23-31 1559775006) AGAP (test code = 2-16 0522522431) BUN (test code = 12 mg/dL 7-23 0137453238) GLUCOSE (test code = 89 mg/dL 70-110 4981534834) CREATININE (test code 0.84 mg/dL 0.5-1.04 = 6556600051) CALCIUM (test code = 9.2 mg/dL 8.6-10.6 3706001270) eGFR Calculation mL/min/1.73m2 (Non-) (test code = 1162698226) eGFR Calculation mL/min/1.73m2 () (test code = 8875313417) GRAYSON (test code = GARYSON) Association of Glomerular Filtration Rate (GFR) and [...] or urine or abnormalities in imaging tests). [facility] ONLY - INFLUENZA A & B DIRECT [id number] 22:41:00 Test Item Value Reference Range Interpretation Comments Influenza A (test code = 09259-0) Negative Negative Influenza B (test code = 10244-9) Negative Negative Lab Interpretation (test code = Normal 80129-7) [facility] WITH [id number] 22:28:00 Test Item Value Reference Range Interpretation Comments WBC (test code = See_Comment [Automated 9290-2) message] The sy stem which generated this [...] RDW-SD (test code = 45.0 fL 39-49.9 31244-1) RDW-CV (test code = 15.9 % 12-15.5 H 788-0) PLT (test code = See_Comment [Automated 777-3) message] The sy stem which generated this result transmitted reference range : 166 - 358 10*3/ ?L. The reference r nan was not used to interpret this result as normal/abnormal . MPV (test code = 10.5 fL 9.5-12.9 45335-9) NRBC/100 WBC (test See_Comment [Automat ed code = 4051868175) message] The system which generated this result transmitted reference range : 0.0 - 10.0 /100 WBCs. The refer ence range was not u sed to interpret th is result as normal/abnormal . NRBC x10^3 (test code <0.01 See_Comment [Auto mated = 3096056183) message] The s ystem which generated this result transmitted reference range : 10*3/?L. The reference range was not used to interpret this result as normal/abnormal . GRAN MAT (NEUT) % 52.0 % (test code = 770-8) IMM GRAN % (test code 0.30 % = 7200326147) LYMPH % (test code = 29.1 % 736-9) MONO % (test code = 8.0 % 5905-5) EOS % (test code = 9.6 % 713-8) BASO % (test code = 1.0 % 706-2) GRAN MAT x10^3(ANC) 2.97 10*3/uL 1.88-7.09 (test code = 1464327293) IMM GRAN x10^3 (test <0.03 0-0.06 code = 1160612212) LYMPH x10^3 (test code 1.67 10*3/uL 1.32-3.29 = 731-0) MONO x10^3 (test code 0.46 10*3/uL 0.33-0.92 = 742-7) EOS x10^3 (test code = 0.55 10*3/uL 0.03-0.39 H 711-2) BASO x10^3 (test code 0.06 10*3/uL 0.01-0.07 = 704-7) Lab Interpretation Abnormal (test code = 37631-4) [facility] [id number] 21:55:00 Test Item Value Reference Range Interpretation Comments POCT PREG (test code = 1605) negative On board controls acceptable with present C Line (test code = 3574) POCT PREG LOT # (test code = 3575) [id number] POCT PREG TEST DATE (test 02/24/22 code = 3576) Lab Interpretation (test code = Normal 60220-8) [facility] 3 VW [id number] 16:39:25HISTORY: ?Pain. FINDINGS: AP, lateral, oblique views of left knee showed no acute fractureor dislocation. No significant changes of arthritis or aggressive bonelesions seen. No significant knee joint effusion. CONCLUSIONS: Normal study. [facility], Radiant Results Inft User - 09/13/2019 11:40 AM CDTHISTORY:Pain.FINDINGS: AP, lateral, oblique views of left knee showed no acute fractureor dislocation. No significant changes of arthritis or aggressive bonelesions seen. No significant knee joint effusion.CONCLUSIONS: Normal study.[facility] L[facility] 2 [id number] 16:38:38HISTORY: ?Low back pain. FINDINGS: AP and lateral views of the lumbar spines partially sacralizedL5.4 lumbar vertebral bodies showed no compression fracture ordislocation. No significant narrowing of the disc spaces or degenerativechanges detected. CONCLUSIONS: No fracture. [facility], Radiant Results InftUser - 09/13/2019 11:39 AM CDTHISTORY: Low back pain.FINDINGS: AP and lateral views of the lumbar spines partially sacralizedL5. 4 lumbar vertebral bodies showed no compression fracture ordislocation. No significant narrowing of the disc spaces or degenerativechanges detected.CONCLUSIONS: No fracture.[facility]2017-[facility]-19 19:39:00 Test Item Value Reference Range Interpretation Comments RBC (test code = RBC) 5.31 4.20-5.40 [facility] HospitalWjkgoflEMPMJLRHDG6545-33-60 19:39:00 Test Item Value Reference Range Interpretation Comments Hgb (test code = Hgb) 11.7 12.0-16.0 [facility] HospitalTnycyidLRDIVJLEDJ1954-71-00 19:39:00 Test Item Value Reference Range Interpretation Comments WBC (test code = WBC) 5.7 3.7-10.4 [facility] HospitalFhelanoDALXSUGCAL1677-05-46 19:39:00 Test Item Value Reference Range Interpretation Comments Platelet (test code = Platelet) 361 491-450 [facility] HospitalCgehpabVYJJUIFUQI8944-88-15 19:39:00 Test Item Value Reference Range Interpretation Comments MPV (test code = MPV) 8.2 7.4-10.4 [facility] HospitalOkjefnyXMHJUSIZLB6365-49-30 19:39:00 Test Item Value Reference Range Interpretation Comments Monocytes # (test code 0.3 See_Comment [Aut omated message] The = Monocytes #) system which generated this result tra nsmitted reference range : <=0.8. The reference r nan was not used to int erpret this result as normal/abnormal . [facility] HospitalDdmahlyQQVDSZUBXC0983-67-05 19:39:00 Test Item Value Reference Range Interpretation Comments Eosinophils # (test code 0.4 See_Comment [A utomated message] The = Eosinophils #) system whic h generated this result tra nsmitted reference range : <=0.5. The reference r nan was not used to int erpret this result as normal/abnormal . [facility] HospitalXpemhsxBCUJQFOOVY0296-07-24 19:39:00 Test Item Value Reference Range Interpretation Comments Basophils # (test code 0.1 See_Comment [Aut omated message] The = Basophils #) system which generated this result tra nsmitted reference range : <=0.2. The reference r nan was not used to int erpret this result as normal/abnormal . [facility] HospitalInzgjsgMYFWRYTFXH7734-23-83 19:39:00 Test Item Value Reference Range Interpretation Comments Microcyte (test code = 2+ *ABN*(11/12/16 Microcyte) 2:39 PM) [facility] HospitalYaggfxbIDZKYVPKNT6446-39-28 19:39:00 Test Item Value Reference Range Interpretation Comments Eosinophils (test code = 6.3 See_Comment [A utomated message] The Eosinophils) system which ge nerated this result tra nsmitted reference range : <=4.0. The reference r nan was not used to int erpret this result as normal/abnormal . [facility] HospitalAditicjYISECEBQHD2637-79-03 19:39:00 Test Item Value Reference Range Interpretation Comments Monocytes (test code = Monocytes) 6.0 2.0-12.0 [facility] HospitalIfbceaiZZHRASOKUB6284-22-08 19:39:00 Test Item Value Reference Range Interpretation Comments Basophils (test code = 1.3 See_Comment [Aut omated message] The Basophils) system which ge nerated this result tra nsmitted reference range : <=1.0. The reference r nan was not used to int erpret this result as normal/abnormal . [facility] HospitalTxzmdfsJZPLFPJHSB8389-24-59 19:39:00 Test Item Value Reference Range Interpretation Comments Lymphocytes (test code = Lymphocytes) 30.6 20.0-40.0 [facility] HospitalSlxurkvDRDMBUCAXZ3619-90-89 19:39:00 Test Item Value Reference Range Interpretation Comments Segs-Bands # (test code = Segs-Bands #) 3.2 1.5-8.1 [facility] HospitalObxovvaYJVMYBEEKI9947-41-82 19:39:00 Test Item Value Reference Range Interpretation Comments Lymphocytes # (test code = Lymphocytes 1.7 1.0-5.5 #) [facility] HospitalKjwkjgfDUVBPPXERI2347-59-68 19:39:00 Test Item Value Reference Range Interpretation Comments Segs (test code = Segs) 55.8 45.0-75.0 [facility] AND [id number] 19:39:00 Test Item Value Reference Range Interpretation Comments UA Mucus (test code = UA Mucus) Few /LPF [facility] AND [id number] 19:39:00 Test Item Value Reference Range Interpretation Comments UA Bacteria (test code = UA Occasional /HPF Bacteria) [facility] AND [id number] 19:39:00 Test Item Value Reference Range Interpretation Comments UA RBC (test code = 3 See_Comment [Automa toño message] The UA RBC) system which ge nerated this result transmit toño reference range : <=2. The reference range was not used to interpr et this result as alistair l/abnormal. [facility] AND [id number] 19:39:00 Test Item Value Reference Range Interpretation Comments UA WBC (test code = 1 See_Comment [Automa toño message] The UA WBC) system which ge nerated this result transmit toño reference range : <=5. The reference range was not used to interpr et this result as alistair l/abnormal. [facility] AND [id number] 19:39:00 Test Item Value Reference Range Interpretation Comments UA Urobilinogen (test code = UA <=1.0 mg/dL 0.1-1.0 Urobilinogen) [facility] AND [id number] 19:39:00 Test Item Value Reference Range Interpretation Comments UA Protein (test code = UA Negative mg/dL Protein) [facility] AND [id number] 19:39:00 Test Item Value Reference Range Interpretation Comments UA pH (test code = UA pH) 5.0 5.0-8.0 [facility] AND [id number] 19:39:00 Test Item Value Reference Range Interpretation Comments UA Spec Grav (test code = UA Spec Grav) 1.028 [facility] AND [id number] 19:39:00 Test Item Value Reference Range Interpretation Comments UA Color (test code = Yellow *NA*(11/12/16 UA Color) 2:39 PM) [facility] AND [id number] 19:39:00 Test Item Value Reference Range Interpretation Comments UA Turbidity (test code Slight *ABN*(11/12/16 = UA Turbidity) 2:39 PM) [facility] AND [id number] 19:39:00 Test Item Value Reference Range Interpretation Comments UA Sq Epi (test code = UA Sq Epi) Many /LPF [facility] AND [id number] 19:39:00 Test Item Value Reference Range Interpretation Comments UA Leuk Est (test Negative (11/12/16 2:39 code = UA Leuk Est) PM) [facility] AND [id number] 19:39:00 Test Item Value Reference Range Interpretation Comments UA Nitrite (test code Negative (11/12/16 2:39 = UA Nitrite) PM) [facility] AND [id number] 19:39:00 Test Item Value Reference Range Interpretation Comments UA Blood (test code = Negative (11/12/16 2:39 UA Blood) PM) [facility] AND [id number] 19:39:00 Test Item Value Reference Range Interpretation Comments UA Ketones (test code = UA Negative mg/dL Ketones) [facility] AND [id number] 19:39:00 Test Item Value Reference Range Interpretation Comments UA Glucose (test code = UA Negative mg/dL Glucose) [facility] AND [id number] 19:39:00 Test Item Value Reference Range Interpretation Comments UA Bili (test code = Negative *NA*(11/12/16 UA Bili) 2:39 PM) [facility] [id number] 19:39:00 Test Item Value Reference Range Interpretation Comments Globulin (test code = Globulin) 4.2 2.7-4.2 [place] 622847-05-19 19:39:00 Test Item Value Reference Range Interpretation Comments A/G Ratio (test code = A/G Ratio) 0.9 0.7-1.6 [place] 622847-05-19 19:39:00 Test Item Value Reference Range Interpretation Comments B/C Ratio (test code = B/C Ratio) 10 6-25 [place] 622847-05-19 19:39:00 Test Item Value Reference Range Interpretation Comments AGAP (test code = AGAP) 12.7 10.0-20.0 [place] 622847-05-19 19:39:00 Test Item Value Reference Range Interpretation Comments AST (test code = AST) 12 See_Comment [Auto mated message] The system which ge nerated this result transmit toño reference range : <=37. The reference range was not used to interpr et this result as alistair l/abnormal. [place] 622847-05-19 19:39:00 Test Item Value Reference Range Interpretation Comments Alk Phos (test code = Alk Phos) 94 39-136 [facility]2017-05-19 19:39:00 Test Item Value Reference Range Interpretation Comments Bili Total (test code = Bili Total) 0.3 0.2-1.3 [facility]2017-05-19 19:39:00 Test Item Value Reference Range Interpretation Comments eGFR (test code = eGFR) 72 [facility]2017-05-19 19:39:00 Test Item Value Reference Range Interpretation Comments Albumin Lvl (test code = Albumin Lvl) 3.6 3.5-5.0 [place] 622847-05-19 19:39:00 Test Item Value Reference Range Interpretation Comments ALT (test code = ALT) 28 See_Comment [Auto mated message] The system which ge nerated this result transmit toño reference range : <=65. The reference range was not used to interpr et this result as alistair l/abnormal. [facility]2017-05-19 19:39:00 Test Item Value Reference Range Interpretation Comments CO2 (test code = CO2) 29 24-32 [place] 622847-05-19 19:39:00 Test Item Value Reference Range Interpretation Comments Sodium Lvl (test code = Sodium Lvl) 140 135-145 [facility]2017-05-19 19:39:00 Test Item Value Reference Range Interpretation Comments Chloride Lvl (test code = Chloride Lvl) 102 95-109 [facility]2017-05-19 19:39:00 Test Item Value Reference Range Interpretation Comments Potassium Lvl (test code = Potassium 3.7 3.5-5.1 Lvl) [facility]2017-05-19 19:39:00 Test Item Value Reference Range Interpretation Comments BUN (test code = BUN) 10 7-22 [place] [address]-05-19 19:39:00 Test Item Value Reference Range Interpretation Comments Creatinine Lvl (test code = Creatinine 1.02 0.50-1.40 Lvl) [facility]2017-05-19 19:39:00 Test Item Value Reference Range Interpretation Comments Calcium Lvl (test code = Calcium Lvl) 9.2 8.5-10.5 [facility]2017-05-19 19:39:00 Test Item Value Reference Range Interpretation Comments Total Protein (test code = Total 7.8 6.4-8.4 Protein) [facility]2017-05-19 19:39:00 Test Item Value Reference Range Interpretation Comments Glucose Lvl (test code = Glucose Lvl) 137 70-99 [facility] HospitalSijlqirYURFYVTGHR7320-85-40 19:39:00 Test Item Value Reference Range Interpretation Comments MCV (test code = MCV) 70.6 80.0-98.0 [facility] HospitalGfmgnyrHHGWKWBXGU5298-10-75 19:39:00 Test Item Value Reference Range Interpretation Comments MCH (test code = MCH) 22.0 pg 27.0-31.0 [facility] HospitalCcdyzopYXXMHKLXPF4352-44-32 19:39:00 Test Item Value Reference Range Interpretation Comments Hct (test code = Hct) 37.5 36.0-48.0 [facility] HospitalLgioymwXXRLASAJTX1041-90-32 19:39:00 Test Item Value Reference Range Interpretation Comments MCHC (test code = MCHC) 31.2 32.0-36.0 [facility] HospitalYrhbegcUJZIRWGMVP3729-28-89 19:39:00 Test Item Value Reference Range Interpretation Comments RDW (test code = RDW) 16.6 11.5-14.5 [place] 967967-05-19 19:39:00 Test Item Value Reference Range Interpretation Comments RBC (test code = RBC) 5.31 4.20-5.40 [facility] HospitalPofqazjSPNVLZGCHC3989-71-67 19:39:00 Test Item Value Reference Range Interpretation Comments Hgb (test code = Hgb) 11.7 12.0-16.0 [facility] HospitalFfgfjbaCKHVWOQMGV3520-21-66 19:39:00 Test Item Value Reference Range Interpretation Comments WBC (test code = WBC) 5.7 3.7-10.4 [facility] HospitalNuppztrOKBHYTFCFC4075-41-59 19:39:00 Test Item Value Reference Range Interpretation Comments Platelet (test code = Platelet) 361 133-450 [facility] HospitalBguysseLRKMYDISOD1381-49-34 19:39:00 Test Item Value Reference Range Interpretation Comments MPV (test code = MPV) 8.2 7.4-10.4 [facility] HospitalPlzivdfHYUPTRALRR6374-04-72 19:39:00 Test Item Value Reference Range Interpretation Comments Monocytes # (test code 0.3 See_Comment [Aut omated message] The = Monocytes #) system which generated this result tra nsmitted reference range : <=0.8. The reference r nan was not used to int erpret this result as normal/abnormal . [facility] HospitalCosfwnoZOZUAXIYEC1588-98-17 19:39:00 Test Item Value Reference Range Interpretation Comments Eosinophils # (test code 0.4 See_Comment [A utomated message] The = Eosinophils #) system whic h generated this result tra nsmitted reference range : <=0.5. The reference r nan was not used to int erpret this result as normal/abnormal . [facility] HospitalNocsccnCZRHRBHTNK6430-00-90 19:39:00 Test Item Value Reference Range Interpretation Comments Basophils # (test code 0.1 See_Comment [Aut omated message] The = Basophils #) system which generated this result tra nsmitted reference range : <=0.2. The reference r nan was not used to int erpret this result as normal/abnormal . [facility] HospitalMjsuubkGHWHRHHINK4736-13-56 19:39:00 Test Item Value Reference Range Interpretation Comments Microcyte (test code = 2+ *ABN*(11/12/16 Microcyte) 2:39 PM) [facility] HospitalFzmystpBIBXWPPZXA4472-52-19 19:39:00 Test Item Value Reference Range Interpretation Comments Eosinophils (test code = 6.3 See_Comment [A utomated message] The Eosinophils) system which ge nerated this result tra nsmitted reference range : <=4.0. The reference r nan was not used to int erpret this result as normal/abnormal . [facility] HospitalLxnwxgnLXFBDSVWPT9836-71-37 19:39:00 Test Item Value Reference Range Interpretation Comments Monocytes (test code = Monocytes) 6.0 2.0-12.0 [facility] HospitalHgazajgZJGZUXZXWG7890-46-03 19:39:00 Test Item Value Reference Range Interpretation Comments Basophils (test code = 1.3 See_Comment [Aut omated message] The Basophils) system which ge nerated this result tra nsmitted reference range : <=1.0. The reference r nan was not used to int erpret this result as normal/abnormal . [facility] HospitalOuruoraFNQDYIOWOG1366-81-13 19:39:00 Test Item Value Reference Range Interpretation Comments Lymphocytes (test code = Lymphocytes) 30.6 20.0-40.0 [facility] HospitalHeynpddMXRUZAXRGW3305-12-78 19:39:00 Test Item Value Reference Range Interpretation Comments Segs-Bands # (test code = Segs-Bands #) 3.2 1.5-8.1 [facility] HospitalFyiytasTFPHMRBAOO2480-75-23 19:39:00 Test Item Value Reference Range Interpretation Comments Lymphocytes # (test code = Lymphocytes 1.7 1.0-5.5 #) [facility] HospitalKqkitvtHKCZFNCNTB2564-88-19 19:39:00 Test Item Value Reference Range Interpretation Comments Segs (test code = Segs) 55.8 45.0-75.0 [facility] [id number] 19:39:00 Test Item Value Reference Range Interpretation Comments UA Mucus (test code = UA Mucus) Few /LPF [facility] AND RKDKT3056-06-01 19:39:00 Test Item Value Reference Range Interpretation Comments UA Bacteria (test code = UA Occasional /HPF Bacteria) [facility] AND [id number] 19:39:00 Test Item Value Reference Range Interpretation Comments UA RBC (test code = 3 See_Comment [Automa toño message] The UA RBC) system which ge nerated this result transmit toño reference range : <=2. The reference range was not used to interpr et this result as alistair l/abnormal. [facility] [id number] 19:39:00 Test Item Value Reference Range Interpretation Comments UA WBC (test code = 1 See_Comment [Automa toño message] The UA WBC) system which ge nerated this result transmit toño reference range : <=5. The reference range was not used to interpr et this result as alistair l/abnormal. [facility] AND [id number] 19:39:00 Test Item Value Reference Range Interpretation Comments UA Urobilinogen (test code = UA <=1.0 mg/dL 0.1-1.0 Urobilinogen) [facility] AND [id number] 19:39:00 Test Item Value Reference Range Interpretation Comments UA Protein (test code = UA Negative mg/dL Protein) [facility] AND [id number] 19:39:00 Test Item Value Reference Range Interpretation Comments UA pH (test code = UA pH) 5.0 5.0-8.0 [facility] AND [id number] 19:39:00 Test Item Value Reference Range Interpretation Comments UA Spec Grav (test code = UA Spec Grav) 1.028 [facility] AND [id number] 19:39:00 Test Item Value Reference Range Interpretation Comments UA Color (test code = Yellow *NA*(11/12/16 UA Color) 2:39 PM) [facility] AND [id number] 19:39:00 Test Item Value Reference Range Interpretation Comments UA Turbidity (test code Slight *ABN*(11/12/16 = UA Turbidity) 2:39 PM) [facility] AND [id number] 19:39:00 Test Item Value Reference Range Interpretation Comments UA Sq Epi (test code = UA Sq Epi) Many /LPF [facility] AND [id number] 19:39:00 Test Item Value Reference Range Interpretation Comments UA Leuk Est (test Negative (11/12/16 2:39 code = UA Leuk Est) PM) [facility] AND [id number] 19:39:00 Test Item Value Reference Range Interpretation Comments UA Nitrite (test code Negative (11/12/16 2:39 = UA Nitrite) PM) [facility] AND [id number] 19:39:00 Test Item Value Reference Range Interpretation Comments UA Blood (test code = Negative (11/12/16 2:39 UA Blood) PM) [facility] AND [id number] 19:39:00 Test Item Value Reference Range Interpretation Comments UA Ketones (test code = UA Negative mg/dL Ketones) [facility] AND [id number] 19:39:00 Test Item Value Reference Range Interpretation Comments UA Glucose (test code = UA Negative mg/dL Glucose) [facility] AND [id number] 19:39:00 Test Item Value Reference Range Interpretation Comments UA Bili (test code = Negative *NA*(11/12/16 UA Bili) 2:39 PM) [facility]2017-05-19 19:39:00 Test Item Value Reference Range Interpretation Comments Globulin (test code = Globulin) 4.2 2.7-4.2 [facility]2017-05-19 19:39:00 Test Item Value Reference Range Interpretation Comments A/G Ratio (test code = A/G Ratio) 0.9 0.7-1.6 [facility]2017-05-19 19:39:00 Test Item Value Reference Range Interpretation Comments Globulin (test code = Globulin) 4.2 2.7-4.2 [facility]2017-05-19 19:39:00 Test Item Value Reference Range Interpretation Comments A/G Ratio (test code = A/G Ratio) 0.9 0.7-1.6 [facility]2017-05-19 19:39:00 Test Item Value Reference Range Interpretation Comments B/C Ratio (test code = B/C Ratio) 10 6-25 [facility]2017-05-19 19:39:00 Test Item Value Reference Range Interpretation Comments AGAP (test code = AGAP) 12.7 10.0-20.0 [facility]2017-05-19 19:39:00 Test Item Value Reference Range Interpretation Comments AST (test code = AST) 12 See_Comment [Auto mated message] The system which ge nerated this result transmit toño reference range : <=37. The reference range was not used to interpr et this result as alistair l/abnormal. [facility]2017-05-19 19:39:00 Test Item Value Reference Range Interpretation Comments Alk Phos (test code = Alk Phos) 94 39-136 [facility]2017-05-19 19:39:00 Test Item Value Reference Range Interpretation Comments Bili Total (test code = Bili Total) 0.3 0.2-1.3 [facility]2017-05-19 19:39:00 Test Item Value Reference Range Interpretation Comments eGFR (test code = eGFR) 72 [facility]2017-05-19 19:39:00 Test Item Value Reference Range Interpretation Comments Albumin Lvl (test code = Albumin Lvl) 3.6 3.5-5.0 [facility]2017-05-19 19:39:00 Test Item Value Reference Range Interpretation Comments ALT (test code = ALT) 28 See_Comment [Auto mated message] The system which ge nerated this result transmit toño reference range : <=65. The reference range was not used to interpr et this result as alistair l/abnormal. [facility]2017-05-19 19:39:00 Test Item Value Reference Range Interpretation Comments CO2 (test code = CO2) 29 24-32 [facility]2017-05-19 19:39:00 Test Item Value Reference Range Interpretation Comments Sodium Lvl (test code = Sodium Lvl) 140 135-145 [facility]2017-05-19 19:39:00 Test Item Value Reference Range Interpretation Comments Chloride Lvl (test code = Chloride Lvl) 102 95-109 [facility]2017-05-19 19:39:00 Test Item Value Reference Range Interpretation Comments Potassium Lvl (test code = Potassium 3.7 3.5-5.1 Lvl) [facility]2017-05-19 19:39:00 Test Item Value Reference Range Interpretation Comments BUN (test code = BUN) 10 7-22 [facility]2017-05-19 19:39:00 Test Item Value Reference Range Interpretation Comments Creatinine Lvl (test code = Creatinine 1.02 0.50-1.40 Lvl) [facility]2017-05-19 19:39:00 Test Item Value Reference Range Interpretation Comments Calcium Lvl (test code = Calcium Lvl) 9.2 8.5-10.5 [place] [id number] 19:39:00 Test Item Value Reference Range Interpretation Comments Total Protein (test code = Total 7.8 6.4-8.4 Protein) [facility]2017-05-19 19:39:00 Test Item Value Reference Range Interpretation Comments Glucose Lvl (test code = Glucose Lvl) 137 70-99 [facility] HospitalNaxpavpZAVUQQOMYU3892-58-44 19:39:00 Test Item Value Reference Range Interpretation Comments MCV (test code = MCV) 70.6 80.0-98.0 [facility] HospitalZwrenthTHHQBCLVWH5433-32-97 19:39:00 Test Item Value Reference Range Interpretation Comments MCH (test code = MCH) 22.0 pg 27.0-31.0 [facility] HospitalUfmszvnKPWLPRZEBQ8359-34-48 19:39:00 Test Item Value Reference Range Interpretation Comments Hct (test code = Hct) 37.5 36.0-48.0 [facility] HospitalTkrwewuAJNBDRSEYN8413-32-46 19:39:00 Test Item Value Reference Range Interpretation Comments MCHC (test code = MCHC) 31.2 32.0-36.0 [facility] Hospit[id number] 19:39:00 Test Item Value Reference Range Interpretation Comments RDW (test code = RDW) 16.6 11.5-14.5 [facility] HospitalPffrcmtVQSRNCAPLG8188-10-48 19:39:00 Test Item Value Reference Range Interpretation Comments RBC (test code = RBC) 5.31 4.20-5.40 [facility] Hospit[id number] 19:39:00 Test Item Value Reference Range Interpretation Comments Hgb (test code = Hgb) 11.7 12.0-16.0 [facility] HospitalCooahvuWRIHTGOYMP9414-42-08 19:39:00 Test Item Value Reference Range Interpretation Comments WBC (test code = WBC) 5.7 3.7-10.4 [facility] HospitalYwtdwwgEQSFNTJLLW9539-90-48 19:39:00 Test Item Value Reference Range Interpretation Comments Platelet (test code = Platelet) 361 133-450 [facility] HospitalPjxhbqlMPZMSSUCDJ7937-83-09 19:39:00 Test Item Value Reference Range Interpretation Comments MPV (test code = MPV) 8.2 7.4-10.4 [facility] HospitalKesyfkrGGFEEGXCYS3405-04-70 19:39:00 Test Item Value Reference Range Interpretation Comments Monocytes # (test code 0.3 See_Comment [Aut omated message] The = Monocytes #) system which generated this result tra nsmitted reference range : <=0.8. The reference r nan was not used to int erpret this result as normal/abnormal . [facility] HospitalEmudljlOSWHSACOSB5099-97-05 19:39:00 Test Item Value Reference Range Interpretation Comments Eosinophils # (test code 0.4 See_Comment [A utomated message] The = Eosinophils #) system whic h generated this result tra nsmitted reference range : <=0.5. The reference r nan was not used to int erpret this result as normal/abnormal . [facility] HospitalOuokxcaEWWAHBWQHR4030-71-79 19:39:00 Test Item Value Reference Range Interpretation Comments Basophils # (test code 0.1 See_Comment [Aut omated message] The = Basophils #) system which generated this result tra nsmitted reference range : <=0.2. The reference r nan was not used to int erpret this result as normal/abnormal . [facility] HospitalRvqslwgJFECRZYPMR3861-81-00 19:39:00 Test Item Value Reference Range Interpretation Comments Microcyte (test code = 2+ *ABN*(11/12/16 Microcyte) 2:39 PM) [facility] HospitalTtptodaVQPHRSLUXI9353-67-29 19:39:00 Test Item Value Reference Range Interpretation Comments Eosinophils (test code = 6.3 See_Comment [A utomated message] The Eosinophils) system which ge nerated this result tra nsmitted reference range : <=4.0. The reference r nan was not used to int erpret this result as normal/abnormal . [facility] HospitalXubtasfGIGJDXJVSC5003-59-64 19:39:00 Test Item Value Reference Range Interpretation Comments Monocytes (test code = Monocytes) 6.0 2.0-12.0 [facility] HospitalCcludhvYEYOADRTXZ0783-01-39 19:39:00 Test Item Value Reference Range Interpretation Comments Basophils (test code = 1.3 See_Comment [Aut omated message] The Basophils) system which ge nerated this result tra nsmitted reference range : <=1.0. The reference r nan was not used to int erpret this result as normal/abnormal . [facility] HospitalUsslmtcLCZHEDMPGD5364-89-53 19:39:00 Test Item Value Reference Range Interpretation Comments Lymphocytes (test code = Lymphocytes) 30.6 20.0-40.0 [facility] HospitalGvdljqpOYFHZBVMKK0984-21-34 19:39:00 Test Item Value Reference Range Interpretation Comments Segs-Bands # (test code = Segs-Bands #) 3.2 1.5-8.1 [facility] HospitalRnacuwpATQJTZTIPJ1901-77-72 19:39:00 Test Item Value Reference Range Interpretation Comments Lymphocytes # (test code = Lymphocytes 1.7 1.0-5.5 #) [facility] HospitalJdwryrzFHDKAAKHUR5922-85-02 19:39:00 Test Item Value Reference Range Interpretation Comments Segs (test code = Segs) 55.8 45.0-75.0 [facility] AND [id number] 19:39:00 Test Item Value Reference Range Interpretation Comments UA Mucus (test code = UA Mucus) Few /LPF [facility] AND [id number] 19:39:00 Test Item Value Reference Range Interpretation Comments UA Bacteria (test code = UA Occasional /HPF Bacteria) [facility] AND [id number] 19:39:00 Test Item Value Reference Range Interpretation Comments UA RBC (test code = 3 See_Comment [Automa tooñ message] The UA RBC) system which ge nerated this result transmit toño reference range : <=2. The reference range was not used to interpr et this result as alistair l/abnormal. [facility] AND [id number] 19:39:00 Test Item Value Reference Range Interpretation Comments UA WBC (test code = 1 See_Comment [Automa toño message] The UA WBC) system which ge nerated this result transmit toño reference range : <=5. The reference range was not used to interpr et this result as alistair l/abnormal. [facility] AND [id number] 19:39:00 Test Item Value Reference Range Interpretation Comments UA Urobilinogen (test code = UA <=1.0 mg/dL 0.1-1.0 Urobilinogen) [facility] AND [id number] 19:39:00 Test Item Value Reference Range Interpretation Comments UA Protein (test code = UA Negative mg/dL Protein) [facility] AND [id number] 19:39:00 Test Item Value Reference Range Interpretation Comments UA pH (test code = UA pH) 5.0 5.0-8.0 [facility] AND [id number] 19:39:00 Test Item Value Reference Range Interpretation Comments UA Spec Grav (test code = UA Spec Grav) 1.028 [facility] AND [id number] 19:39:00 Test Item Value Reference Range Interpretation Comments UA Color (test code = Yellow *NA*(11/12/16 UA Color) 2:39 PM) [facility] AND [id number] 19:39:00 Test Item Value Reference Range Interpretation Comments UA Turbidity (test code Slight *ABN*(11/12/16 = UA Turbidity) 2:39 PM) [facility] AND [id number] 19:39:00 Test Item Value Reference Range Interpretation Comments UA Sq Epi (test code = UA Sq Epi) Many /LPF [facility] AND [id number] 19:39:00 Test Item Value Reference Range Interpretation Comments UA Leuk Est (test Negative (11/12/16 2:39 code = UA Leuk Est) PM) [facility] AND [id number] 19:39:00 Test Item Value Reference Range Interpretation Comments UA Nitrite (test code Negative (11/12/16 2:39 = UA Nitrite) PM) [facility] AND [id number] 19:39:00 Test Item Value Reference Range Interpretation Comments UA Blood (test code = Negative (11/12/16 2:39 UA Blood) PM) [facility] AND [id number] 19:39:00 Test Item Value Reference Range Interpretation Comments UA Ketones (test code = UA Negative mg/dL Ketones) [facility] AND [id number] 19:39:00 Test Item Value Reference Range Interpretation Comments UA Glucose (test code = UA Negative mg/dL Glucose) [facility] AND [id number] 19:39:00 Test Item Value Reference Range Interpretation Comments UA Bili (test code = Negative *NA*(11/12/16 UA Bili) 2:39 PM) [facility] [id number] 19:39:00 Test Item Value Reference Range Interpretation Comments B/C Ratio (test code = B/C Ratio) 10 6-25 [facility] [id number] 19:39:00 Test Item Value Reference Range Interpretation Comments AGAP (test code = AGAP) 12.7 10.0-20.0 [facility]2017-05-19 19:39:00 Test Item Value Reference Range Interpretation Comments AST (test code = AST) 12 See_Comment [Auto mated message] The system which ge nerated this result transmit toño reference range : <=37. The reference range was not used to interpr et this result as alistair l/abnormal. [facility]2017-05-19 19:39:00 Test Item Value Reference Range Interpretation Comments Alk Phos (test code = Alk Phos) 94 39-136 [facility]2017-05-19 19:39:00 Test Item Value Reference Range Interpretation Comments Bili Total (test code = Bili Total) 0.3 0.2-1.3 [facility]2017-05-19 19:39:00 Test Item Value Reference Range Interpretation Comments eGFR (test code = eGFR) 72 [facility]2017-05-19 19:39:00 Test Item Value Reference Range Interpretation Comments Albumin Lvl (test code = Albumin Lvl) 3.6 3.5-5.0 [facility]2017-05-19 19:39:00 Test Item Value Reference Range Interpretation Comments ALT (test code = ALT) 28 See_Comment [Auto mated message] The system which ge nerated this result transmit toño reference range : <=65. The reference range was not used to interpr et this result as alistair l/abnormal. [facility]2017-05-19 19:39:00 Test Item Value Reference Range Interpretation Comments CO2 (test code = CO2) 29 24-32 [facility]2017-05-19 19:39:00 Test Item Value Reference Range Interpretation Comments Sodium Lvl (test code = Sodium Lvl) 140 135-145 [facility]2017-05-19 19:39:00 Test Item Value Reference Range Interpretation Comments Chloride Lvl (test code = Chloride Lvl) 102 95-109 [facility]2017-05-19 19:39:00 Test Item Value Reference Range Interpretation Comments Potassium Lvl (test code = Potassium 3.7 3.5-5.1 Lvl) [place] 622847-05-19 19:39:00 Test Item Value Reference Range Interpretation Comments BUN (test code = BUN) 10 7-22 [facility]2017-05-19 19:39:00 Test Item Value Reference Range Interpretation Comments Creatinine Lvl (test code = Creatinine 1.02 0.50-1.40 Lvl) [facility]2017-05-19 19:39:00 Test Item Value Reference Range Interpretation Comments Calcium Lvl (test code = Calcium Lvl) 9.2 8.5-10.5 [facility]2017-05-19 19:39:00 Test Item Value Reference Range Interpretation Comments Total Protein (test code = Total 7.8 6.4-8.4 Protein) [facility]2017-05-19 19:39:00 Test Item Value Reference Range Interpretation Comments Glucose Lvl (test code = Glucose Lvl) 137 70-99 [facility] HospitalKtisvjyWMGRXJJVCY9215-37-14 19:39:00 Test Item Value Reference Range Interpretation Comments MCV (test code = MCV) 70.6 80.0-98.0 [facility] HospitalXeigbhtYPIHKMTVGJ1716-36-01 19:39:00 Test Item Value Reference Range Interpretation Comments MCH (test code = MCH) 22.0 pg 27.0-31.0 [facility] HospitalSqesxkzTJELOFFNHV4062-93-01 19:39:00 Test Item Value Reference Range Interpretation Comments Hct (test code = Hct) 37.5 36.0-48.0 [facility] HospitalLywnafcMYYHVAELHC8491-05-68 19:39:00 Test Item Value Reference Range Interpretation Comments MCHC (test code = MCHC) 31.2 32.0-36.0 [facility] Ho[id number] 19:39:00 Test Item Value Reference Range Interpretation Comments RDW (test code = RDW) 16.6 11.5-14.5 [place] [id number] 19:39:00 Test Item Value Reference Range Interpretation Comments RBC (test code = RBC) 5.31 4.20-5.40 [place] [id number] 19:39:00 Test Item Value Reference Range Interpretation Comments Hgb (test code = Hgb) 11.7 12.0-16.0 [place] [id number] 19:39:00 Test Item Value Reference Range Interpretation Comments WBC (test code = WBC) 5.7 3.7-10.4 [facility] HospitalVrcdflbCIQWBZWYAU2792-21-40 19:39:00 Test Item Value Reference Range Interpretation Comments Platelet (test code = Platelet) 361 133-450 [facility] Hospit[id number] 19:39:00 Test Item Value Reference Range Interpretation Comments MPV (test code = MPV) 8.2 7.4-10.4 [facility] HospitalGsxqifdANVEXTYNYH0682-04-33 19:39:00 Test Item Value Reference Range Interpretation Comments Monocytes # (test code 0.3 See_Comment [Aut omated message] The = Monocytes #) system which generated this result tra nsmitted reference range : <=0.8. The reference r nan was not used to int erpret this result as normal/abnormal . [facility] HospitalPnnxpnlZFETSYWUPD8428-35-23 19:39:00 Test Item Value Reference Range Interpretation Comments Eosinophils # (test code 0.4 See_Comment [A utomated message] The = Eosinophils #) system whic h generated this result tra nsmitted reference range : <=0.5. The reference r nan was not used to int erpret this result as normal/abnormal . [facility] HospitalTftneotNGLBAXTUCP9783-85-57 19:39:00 Test Item Value Reference Range Interpretation Comments Basophils # (test code 0.1 See_Comment [Aut omated message] The = Basophils #) system which generated this result tra nsmitted reference range : <=0.2. The reference r nan was not used to int erpret this result as normal/abnormal . [facility] HospitalGzjwvoiQELLQPTBEY0704-03-75 19:39:00 Test Item Value Reference Range Interpretation Comments Microcyte (test code = 2+ *ABN*(11/12/16 Microcyte) 2:39 PM) [facility] HospitalXdxfsarIJEMXOVRFN6431-29-89 19:39:00 Test Item Value Reference Range Interpretation Comments Eosinophils (test code = 6.3 See_Comment [A utomated message] The Eosinophils) system which ge nerated this result tra nsmitted reference range : <=4.0. The reference r nan was not used to int erpret this result as normal/abnormal . [facility] HospitalKiatvtkNUVBXYJGCX9464-94-08 19:39:00 Test Item Value Reference Range Interpretation Comments Monocytes (test code = Monocytes) 6.0 2.0-12.0 [facility] HospitalRupgswaLMAPHGLWJH9933-03-11 19:39:00 Test Item Value Reference Range Interpretation Comments Basophils (test code = 1.3 See_Comment [Aut omated message] The Basophils) system which ge nerated this result tra nsmitted reference range : <=1.0. The reference r nan was not used to int erpret this result as normal/abnormal . [facility] HospitalBwpavusOVKQAAYKVN8557-05-21 19:39:00 Test Item Value Reference Range Interpretation Comments Lymphocytes (test code = Lymphocytes) 30.6 20.0-40.0 [facility] HospitalFnpnpixPURWZMWPJM4345-57-79 19:39:00 Test Item Value Reference Range Interpretation Comments Segs-Bands # (test code = Segs-Bands #) 3.2 1.5-8.1 [facility] HospitalEyvhedoZDOZICDDEX9697-61-45 19:39:00 Test Item Value Reference Range Interpretation Comments Lymphocytes # (test code = Lymphocytes 1.7 1.0-5.5 #) [facility] HospitalUxlktykHELKDUWRKX5681-24-85 19:39:00 Test Item Value Reference Range Interpretation Comments Segs (test code = Segs) 55.8 45.0-75.0 [facility] AND [id number] 19:39:00 Test Item Value Reference Range Interpretation Comments UA Mucus (test code = UA Mucus) Few /LPF [facility] AND [id number] 19:39:00 Test Item Value Reference Range Interpretation Comments UA Bacteria (test code = UA Occasional /HPF Bacteria) [facility] AND [id number] 19:39:00 Test Item Value Reference Range Interpretation Comments UA RBC (test code = 3 See_Comment [Automa toño message] The UA RBC) system which ge nerated this result transmit toño reference range : <=2. The reference range was not used to interpr et this result as alistair l/abnormal. [facility] AND [id number] 19:39:00 Test Item Value Reference Range Interpretation Comments UA WBC (test code = 1 See_Comment [Automa toño message] The UA WBC) system which ge nerated this result transmit toño reference range : <=5. The reference range was not used to interpr et this result as alistair l/abnormal. [facility] AND [id number] 19:39:00 Test Item Value Reference Range Interpretation Comments UA Urobilinogen (test code = UA <=1.0 mg/dL 0.1-1.0 Urobilinogen) [facility] AND [id number] 19:39:00 Test Item Value Reference Range Interpretation Comments UA Protein (test code = UA Negative mg/dL Protein) [facility] AND [id number] 19:39:00 Test Item Value Reference Range Interpretation Comments UA pH (test code = UA pH) 5.0 5.0-8.0 [facility] AND [id number] 19:39:00 Test Item Value Reference Range Interpretation Comments UA Spec Grav (test code = UA Spec Grav) 1.028 [facility] AND [id number] 19:39:00 Test Item Value Reference Range Interpretation Comments UA Color (test code = Yellow *NA*(11/12/16 UA Color) 2:39 PM) [facility] AND [id number] 19:39:00 Test Item Value Reference Range Interpretation Comments UA Turbidity (test code Slight *ABN*(11/12/16 = UA Turbidity) 2:39 PM) [facility] AND [id number] 19:39:00 Test Item Value Reference Range Interpretation Comments UA Sq Epi (test code = UA Sq Epi) Many /LPF [facility] AND [id number] 19:39:00 Test Item Value Reference Range Interpretation Comments UA Leuk Est (test Negative (11/12/16 2:39 code = UA Leuk Est) PM) [facility] AND [id number] 19:39:00 Test Item Value Reference Range Interpretation Comments UA Nitrite (test code Negative (11/12/16 2:39 = UA Nitrite) PM) [facility] AND [id number] 19:39:00 Test Item Value Reference Range Interpretation Comments UA Blood (test code = Negative (11/12/16 2:39 UA Blood) PM) [facility] AND [id number] 19:39:00 Test Item Value Reference Range Interpretation Comments UA Ketones (test code = UA Negative mg/dL Ketones) [facility] AND [id number] 19:39:00 Test Item Value Reference Range Interpretation Comments UA Glucose (test code = UA Negative mg/dL Glucose) [facility] AND [id number] 19:39:00 Test Item Value Reference Range Interpretation Comments UA Bili (test code = Negative *NA*(11/12/16 UA Bili) 2:39 PM) [facility]2017-05-19 19:39:00 Test Item Value Reference Range Interpretation Comments Globulin (test code = Globulin) 4.2 2.7-4.2 [facility]2017-05-19 19:39:00 Test Item Value Reference Range Interpretation Comments A/G Ratio (test code = A/G Ratio) 0.9 0.7-1.6 [facility]2017-05-19 19:39:00 Test Item Value Reference Range Interpretation Comments B/C Ratio (test code = B/C Ratio) 10 6-25 [facility]2017-05-19 19:39:00 Test Item Value Reference Range Interpretation Comments AGAP (test code = AGAP) 12.7 10.0-20.0 [facility]2017-05-19 19:39:00 Test Item Value Reference Range Interpretation Comments AST (test code = AST) 12 See_Comment [Auto mated message] The system which ge nerated this result transmit toño reference range : <=37. The reference range was not used to interpr et this result as alistair l/abnormal. [facility]2017-05-19 19:39:00 Test Item Value Reference Range Interpretation Comments Alk Phos (test code = Alk Phos) 94 39-136 [facility]2017-05-19 19:39:00 Test Item Value Reference Range Interpretation Comments Bili Total (test code = Bili Total) 0.3 0.2-1.3 [facility]2017-05-19 19:39:00 Test Item Value Reference Range Interpretation Comments eGFR (test code = eGFR) 72 [facility]2017-05-19 19:39:00 Test Item Value Reference Range Interpretation Comments Albumin Lvl (test code = Albumin Lvl) 3.6 3.5-5.0 [facility]2017-05-19 19:39:00 Test Item Value Reference Range Interpretation Comments ALT (test code = ALT) 28 See_Comment [Auto mated message] The system which ge nerated this result transmit toño reference range : <=65. The reference range was not used to interpr et this result as alistair l/abnormal. [facility]2017-05-19 19:39:00 Test Item Value Reference Range Interpretation Comments CO2 (test code = CO2) 29 24-32 [facility]2017-05-19 19:39:00 Test Item Value Reference Range Interpretation Comments Sodium Lvl (test code = Sodium Lvl) 140 135-145 [facility]2017-05-19 19:39:00 Test Item Value Reference Range Interpretation Comments Chloride Lvl (test code = Chloride Lvl) 102 95-109 [facility]2017-05-19 19:39:00 Test Item Value Reference Range Interpretation Comments Potassium Lvl (test code = Potassium 3.7 3.5-5.1 Lvl) [facility]2017-05-19 19:39:00 Test Item Value Reference Range Interpretation Comments BUN (test code = BUN) 10 7-22 [facility]2017-05-19 19:39:00 Test Item Value Reference Range Interpretation Comments Creatinine Lvl (test code = Creatinine 1.02 0.50-1.40 Lvl) [facility]2017-05-19 19:39:00 Test Item Value Reference Range Interpretation Comments Calcium Lvl (test code = Calcium Lvl) 9.2 8.5-10.5 [facility]2017-05-19 19:39:00 Test Item Value Reference Range Interpretation Comments Total Protein (test code = Total 7.8 6.4-8.4 Protein) [facility]2017-05-19 19:39:00 Test Item Value Reference Range Interpretation Comments Glucose Lvl (test code = Glucose Lvl) 137 70-99 [id number] 19:39:00 Test Item Value Reference Range Interpretation Comments MCV (test code = MCV) 70.6 80.0-98.0 [place] [id number] 19:39:00 Test Item Value Reference Range Interpretation Comments MCH (test code = MCH) 22.0 pg 27.0-31.0 [id number] 19:39:00 Test Item Value Reference Range Interpretation Comments Hct (test code = Hct) 37.5 36.0-48.0 [id number] 19:39:00 Test Item Value Reference Range Interpretation Comments MCHC (test code = MCHC) 31.2 32.0-36.0 [facility] Hospit[id number] 19:39:00 Test Item Value Reference Range Interpretation Comments RDW (test code = RDW) 16.6 11.5-14.[address] [facility] GLUCOSE [id number] 11:29:00 Test Item Value Reference Range Interpretation Comments Gluc POC Lifscn (test code = Gluc POC 111 70-99 H Lifscn) [facility] GLUCOSE [id number] 11:29:00 Test Item Value Reference Range Interpretation Comments Gluc POC Lifscn (test code = Gluc POC 111 70-99 H Lifscn) [facility] GLUCOSE [id number] 11:29:00 Test Item Value Reference Range Interpretation Comments Gluc POC Lifscn (test code = Gluc POC 111 70-99 H Lifscn) [facility] GLUCOSE [id number] 11:29:00 Test Item Value Reference Range Interpretation Comments Gluc POC Lifscn (test code = Gluc POC 111 70-99 H Lifscn) [facility] GLUCOSE [id number] 02:06:00 Test Item Value Reference Range Interpretation Comments Gluc POC Lifscn (test code = Gluc POC 139 70-99 H Lifscn) [facility] GLUCOSE [id number] 02:06:00 Test Item Value Reference Range Interpretation Comments Gluc POC Lifscn (test code = Gluc POC 139 70-99 H Lifscn) [facility] GLUCOSE [id number] 02:06:00 Test Item Value Reference Range Interpretation Comments Gluc POC Lifscn (test code = Gluc POC 139 70-99 H Lifscn) [facility] GLUCOSE [id number] 02:06:00 Test Item Value Reference Range Interpretation Comments Gluc POC Lifscn (test code = Gluc POC 139 70-99 H Lifscn) [facility] GLUCOSE [id number] 20:18:00 Test Item Value Reference Range Interpretation Comments Comment1 (test code = Comment1) Notify RN/MD [facility] GLUCOSE [id number] 20:18:00 Test Item Value Reference Range Interpretation Comments Gluc POC Lifscn (test code = Gluc POC 135 70-99 H Lifscn) [facility] GLUCOSE [id number] 20:18:00 Test Item Value Reference Range Interpretation Comments Comment1 (test code = Comment1) Notify RN/ [facility] GLUCOSE [id number] 20:18:00 Test Item Value Reference Range Interpretation Comments Gluc POC Lifscn (test code = Gluc POC 135 70-99 H Lifscn) [facility] GLUCOSE [id number] 20:18:00 Test Item Value Reference Range Interpretation Comments Comment1 (test code = Comment1) Notify RN/ [facility] GLUCOSE [id number] 20:18:00 Test Item Value Reference Range Interpretation Comments Gluc POC Lifscn (test code = Gluc POC 135 70-99 H Lifscn) [facility] GLUCOSE [id number] 20:18:00 Test Item Value Reference Range Interpretation Comments Comment1 (test code = Comment1) Notify RN/ [facility] GLUCOSE [id number] 20:18:00 Test Item Value Reference Range Interpretation Comments Gluc POC Lifscn (test code = Gluc POC 135 70-99 H Lifscn) [facility] GLUCOSE [id number] 17:44:00 Test Item Value Reference Range Interpretation Comments Comment1 (test code = Comment1) Notify RN/ [facility] GLUCOSE [id number] 17:44:00 Test Item Value Reference Range Interpretation Comments Comment1 (test code = Comment1) Notify RN/ [facility] GLUCOSE [id number] 17:44:00 Test Item Value Reference Range Interpretation Comments Comment1 (test code = Comment1) Notify RN/ [facility] GLUCOSE [id number] 17:44:00 Test Item Value Reference Range Interpretation Comments Comment1 (test code = Comment1) Notify RN/ [facility] [id number] 17:30:00 Test Item Value Reference Range Interpretation Comments Monocyte CSF (test code = Monocyte CSF) 7 15-45 L [facility] [id number] 17:30:00 Test Item Value Reference Range Interpretation Comments Eos CSF (test code = Eos CSF) 5 [facility] [id number] 17:30:00 Test Item Value Reference Range Interpretation Comments RBC CSF (test code = 44 See_Comment H [Autom ated message] The RBC CSF) system which ge nerated this result transmit toño reference range : <=0. The reference range was not used to interpr et this result as alistair l/abnormal. [facility] [id number] 17:30:00 Test Item Value Reference Range Interpretation Comments Lymph CSF (test code = Lymph CSF) 9 40-80 L [facility]2012-10-24 17:30:00 Test Item Value Reference Range Interpretation Comments Segs CSF (test code = 79 See_Comment H [Auto mated message] The Segs CSF) system which ge nerated this result transmit toño reference range : <=6. The reference range was not used to interpr et this result as alistair l/abnormal. [facility] [id number] 17:30:00 Test Item Value Reference Range Interpretation Comments Tube Num CSF (test xxxxxxx (04/19/2012 N code = Tube Num CSF) 12:30:00) [facility] [id number] 17:30:00 Test Item Value Reference Range Interpretation Comments Supernat CSF (test Colorless (04/19/2012 N code = Supernat CSF) 12:30:00) [facility]2012-10-24 17:30:00 Test Item Value Reference Range Interpretation Comments Color CSF (test code Colorless (04/19/2012 N = Color CSF) 12:30:00) [facility]2012-10-24 17:30:00 Test Item Value Reference Range Interpretation Comments Clarity CSF (test code Slight A = Clarity CSF) *ABN*(04/19/2012 12:30:00) [facility]2012-10-24 17:30:00 Test Item Value Reference Range Interpretation Comments Monocyte CSF (test code = Monocyte CSF) 7 15-45 L [facility] [id number] 17:30:00 Test Item Value Reference Range Interpretation Comments Eos CSF (test code = Eos CSF) 5 [facility] [id number] 17:30:00 Test Item Value Reference Range Interpretation Comments RBC CSF (test code = 44 See_Comment H [Autom ated message] The RBC CSF) system which ge nerated this result transmit toño reference range : <=0. The reference range was not used to interpr et this result as alistair l/abnormal. [facility] [id number] 17:30:00 Test Item Value Reference Range Interpretation Comments WBC CSF (test code = 288 See_Comment H [Autom ated message] The WBC CSF) system which ge nerated this result transmit toño reference range : <=5. The reference range was not used to interpr et this result as alistair l/abnormal. [facility] [id number] 17:30:00 Test Item Value Reference Range Interpretation Comments Lymph CSF (test code = Lymph CSF) 9 40-80 L [facility]2012-10-24 17:30:00 Test Item Value Reference Range Interpretation Comments Segs CSF (test code = 79 See_Comment H [Auto mated message] The Segs CSF) system which ge nerated this result transmit toño reference range : <=6. The reference range was not used to interpr et this result as alistair l/abnormal. [facility] [id number] 17:30:00 Test Item Value Reference Range Interpretation Comments Tube Num CSF (test xxxxxxx (04/19/2012 N code = Tube Num CSF) 12:30:00) [facility] [id number] 17:30:00 Test Item Value Reference Range Interpretation Comments Supernat CSF (test Colorless (04/19/2012 N code = Supernat CSF) 12:30:00) [facility] [id number] 17:30:00 Test Item Value Reference Range Interpretation Comments Color CSF (test code Colorless (04/19/2012 N = Color CSF) 12:30:00) [facility] [id number] 17:30:00 Test Item Value Reference Range Interpretation Comments Clarity CSF (test code Slight A = Clarity CSF) *ABN*(04/19/2012 12:30:00) [facility] [id number] 17:30:00 Test Item Value Reference Range Interpretation Comments WBC CSF (test code = 288 See_Comment H [Autom ated message] The WBC CSF) system which ge nerated this result transmit toño reference range : <=5. The reference range was not used to interpr et this result as alistair l/abnormal. [id number] 17:30:00 Test Item Value Reference Range Interpretation Comments Glucose CSF (test code = Glucose CSF) 27 45-80 L [facility]2012-10-24 17:30:00 Test Item Value Reference Range Interpretation Comments Protein CSF (test code = Protein CSF) 68 15-45 H [facility] [id number] 17:30:00 Test Item Value Reference Range Interpretation Comments Glucose CSF (test code = Glucose CSF) 27 45-80 L [facility]2012-10-24 17:30:00 Test Item Value Reference Range Interpretation Comments Protein CSF (test code = Protein CSF) 68 15-45 H [facility] [id number] 17:30:00 Test Item Value Reference Range Interpretation Comments Monocyte CSF (test code = Monocyte CSF) 7 15-45 L [facility] [id number] 17:30:00 Test Item Value Reference Range Interpretation Comments Eos CSF (test code = Eos CSF) 5 [facility] [id number] 17:30:00 Test Item Value Reference Range Interpretation Comments RBC CSF (test code = 44 See_Comment H [Autom ated message] The RBC CSF) system which ge nerated this result transmit toño reference range : <=0. The reference range was not used to interpr et this result as alistair l/abnormal. [facility] [id number] 17:30:00 Test Item Value Reference Range Interpretation Comments Lymph CSF (test code = Lymph CSF) 9 40-80 L [facility] [id number] 17:30:00 Test Item Value Reference Range Interpretation Comments Segs CSF (test code = 79 See_Comment H [Auto mated message] The Segs CSF) system which ge nerated this result transmit toño reference range : <=6. The reference range was not used to interpr et this result as alistair l/abnormal. [facility] [id number] 17:30:00 Test Item Value Reference Range Interpretation Comments Tube Num CSF (test xxxxxxx (04/19/2012 N code = Tube Num CSF) 12:30:00) [facility] [id number] 17:30:00 Test Item Value Reference Range Interpretation Comments Supernat CSF (test Colorless (04/19/2012 N code = Supernat CSF) 12:30:00) [facility]2012-10-24 17:30:00 Test Item Value Reference Range Interpretation Comments Color CSF (test code Colorless (04/19/2012 N = Color CSF) 12:30:00) [facility]2012-10-24 17:30:00 Test Item Value Reference Range Interpretation Comments Clarity CSF (test code Slight A = Clarity CSF) *ABN*(04/19/2012 12:30:00) [facility]2012-10-24 17:30:00 Test Item Value Reference Range Interpretation Comments WBC CSF (test code = 288 See_Comment H [Autom ated message] The WBC CSF) system which ge nerated this result transmit toño reference range : <=5. The reference range was not used to interpr et this result as alistair l/abnormal. [facility]2012-10-24 17:30:00 Test Item Value Reference Range Interpretation Comments Glucose CSF (test code = Glucose CSF) 27 45-80 L [facility]2012-10-24 17:30:00 Test Item Value Reference Range Interpretation Comments Protein CSF (test code = Protein CSF) 68 15-45 H [facility]2012-10-24 17:30:00 Test Item Value Reference Range Interpretation Comments Monocyte CSF (test code = Monocyte CSF) 7 15-45 L [facility]2012-10-24 17:30:00 Test Item Value Reference Range Interpretation Comments Eos CSF (test code = Eos CSF) 5 [facility]2012-10-24 17:30:00 Test Item Value Reference Range Interpretation Comments RBC CSF (test code = 44 See_Comment H [Autom ated message] The RBC CSF) system which ge nerated this result transmit toño reference range : <=0. The reference range was not used to interpr et this result as alistair l/abnormal. [facility] [id number] 17:30:00 Test Item Value Reference Range Interpretation Comments Lymph CSF (test code = Lymph CSF) 9 40-80 L [id number] 17:30:00 Test Item Value Reference Range Interpretation Comments Segs CSF (test code = 79 See_Comment H [Auto mated message] The Segs CSF) system which ge nerated this result transmit toño reference range : <=6. The reference range was not used to interpr et this result as alistair l/abnormal. [facility]2012-10-24 17:30:00 Test Item Value Reference Range Interpretation Comments Tube Num CSF (test xxxxxxx (04/19/2012 N code = Tube Num CSF) 12:30:00) [facility]2012-10-24 17:30:00 Test Item Value Reference Range Interpretation Comments Supernat CSF (test Colorless (04/19/2012 N code = Supernat CSF) 12:30:00) [facility]2012-10-24 17:30:00 Test Item Value Reference Range Interpretation Comments Color CSF (test code Colorless (04/19/2012 N = Color CSF) 12:30:00) [facility]2012-10-24 17:30:00 Test Item Value Reference Range Interpretation Comments Clarity CSF (test code Slight A = Clarity CSF) *ABN*(04/19/2012 12:30:00) [facility]2012-10-24 17:30:00 Test Item Value Reference Range Interpretation Comments WBC CSF (test code = 288 See_Comment H [Autom ated message] The WBC CSF) system which ge nerated this result transmit toño reference range : <=5. The reference range was not used to interpr et this result as alistair l/abnormal. [facility]2012-10-24 17:30:00 Test Item Value Reference Range Interpretation Comments Glucose CSF (test code = Glucose CSF) 27 45-80 L [facility]2012-10-24 17:30:00 Test Item Value Reference Range Interpretation Comments Protein CSF (test code = Protein CSF) 68 15-[address] [facility] GLUCOSE [id number] 12:52:00 Test Item Value Reference Range Interpretation Comments Comment1 (test code = Comment1) Notify NAILA/ [facility] GLUCOSE [id number] 12:52:00 Test Item Value Reference Range Interpretation Comments Comment1 (test code = Comment1) Notify NAILA/ [facility] GLUCOSE [id number] 12:52:00 Test Item Value Reference Range Interpretation Comments Comment1 (test code = Comment1) Notify RN/MD [facility] GLUCOSE [id number] 12:52:00 Test Item Value Reference Range Interpretation Comments Comment1 (test code = Comment1) Notify RN/MD [facility]2012-10-23 10:00:00 Test Item Value Reference Range Interpretation Comments Protein CSF (test code = Protein CSF) 96 15-45 H [facility]2012-10-23 10:00:00 Test Item Value Reference Range Interpretation Comments Glucose CSF (test code = Glucose CSF) 40 45-80 L [facility]2012-10-23 10:00:00 Test Item Value Reference Range Interpretation Comments Monocyte CSF (test code = Monocyte CSF) 13 15-45 L [facility]2012-10-23 10:00:00 Test Item Value Reference Range Interpretation Comments Eos CSF (test code = Eos CSF) 1 [facility]2012-10-23 10:00:00 Test Item Value Reference Range Interpretation Comments Lymph CSF (test code = Lymph CSF) 17 40-80 L [facility]2012-10-23 10:00:00 Test Item Value Reference Range Interpretation Comments Supernat CSF (test code Xanthoch A = Supernat CSF) 4*ABN*(04/18/2012 05:00:00) [facility]2012-10-23 10:00:00 Test Item Value Reference Range Interpretation Comments WBC CSF (test code = 250 See_Comment H [Autom ated message] The WBC CSF) system which ge nerated this result transmit toño reference range : <=5. The reference range was not used to interpr et this result as alistair l/abnormal. [facility]2012-10-23 10:00:00 Test Item Value Reference Range Interpretation Comments RBC CSF (test code = 360 See_Comment H [Autom ated message] The RBC CSF) system which ge nerated this result transmit toño reference range : <=0. The reference range was not used to interpr et this result as alistair l/abnormal. [facility]2012-10-23 10:00:00 Test Item Value Reference Range Interpretation Comments Segs CSF (test code = 69 See_Comment H [Auto mated message] The Segs CSF) system which ge nerated this result transmit toño reference range : <=6. The reference range was not used to interpr et this result as alistair l/abnormal. [facility] [id number] 10:00:00 Test Item Value Reference Range Interpretation Comments Clarity CSF (test code Slight A = Clarity CSF) *ABN*(04/18/2012 05:00:00) [facility]2012-10-23 10:00:00 Test Item Value Reference Range Interpretation Comments Tube Num CSF (test xxxxxxx (04/18/2012 N code = Tube Num CSF) 05:00:00) [facility]2012-10-23 10:00:00 Test Item Value Reference Range Interpretation Comments Color CSF (test code Xanthoch A = Color CSF) 3*ABN*(04/18/2012 05:00:00) [facility]2012-10-23 10:00:00 Test Item Value Reference Range Interpretation Comments Protein CSF (test code = Protein CSF) 96 15-45 H [facility]2012-10-23 10:00:00 Test Item Value Reference Range Interpretation Comments Glucose CSF (test code = Glucose CSF) 40 45-80 L [facility]2012-10-23 10:00:00 Test Item Value Reference Range Interpretation Comments Monocyte CSF (test code = Monocyte CSF) 13 15-45 L [facility]2012-10-23 10:00:00 Test Item Value Reference Range Interpretation Comments Eos CSF (test code = Eos CSF) 1 [facility]2012-10-23 10:00:00 Test Item Value Reference Range Interpretation Comments Lymph CSF (test code = Lymph CSF) 17 40-80 L [facility]2012-10-23 10:00:00 Test Item Value Reference Range Interpretation Comments Supernat CSF (test code Xanthoch A = Supernat CSF) 4*ABN*(04/18/2012 05:00:00) [facility] [id number] 10:00:00 Test Item Value Reference Range Interpretation Comments WBC CSF (test code = 250 See_Comment H [Autom ated message] The WBC CSF) system which ge nerated this result transmit toño reference range : <=5. The reference range was not used to interpr et this result as alistair l/abnormal. [facility] [id number] 10:00:00 Test Item Value Reference Range Interpretation Comments RBC CSF (test code = 360 See_Comment H [Autom ated message] The RBC CSF) system which ge nerated this result transmit toño reference range : <=0. The reference range was not used to interpr et this result as alistair l/abnormal. [facility] [id number] 10:00:00 Test Item Value Reference Range Interpretation Comments Segs CSF (test code = 69 See_Comment H [Auto mated message] The Segs CSF) system which ge nerated this result transmit toño reference range : <=6. The reference range was not used to interpr et this result as alistair l/abnormal. [facility] [id number] 10:00:00 Test Item Value Reference Range Interpretation Comments Clarity CSF (test code Slight A = Clarity CSF) *ABN*(04/18/2012 05:00:00) [facility] [id number] 10:00:00 Test Item Value Reference Range Interpretation Comments Tube Num CSF (test xxxxxxx (04/18/2012 N code = Tube Num CSF) 05:00:00) [facility] [id number] 10:00:00 Test Item Value Reference Range Interpretation Comments Color CSF (test code Xanthoch A = Color CSF) 3*ABN*(04/18/2012 05:00:00) [facility] [id number] 10:00:00 Test Item Value Reference Range Interpretation Comments Protein CSF (test code = Protein CSF) 96 15-45 H [facility] [id number] 10:00:00 Test Item Value Reference Range Interpretation Comments Glucose CSF (test code = Glucose CSF) 40 45-80 L [facility] [id number] 10:00:00 Test Item Value Reference Range Interpretation Comments Monocyte CSF (test code = Monocyte CSF) 13 15-45 L [facility]entisEGMITI1451-35-55 10:00:00 Test Item Value Reference Range Interpretation Comments Eos CSF (test code = Eos CSF) 1 [facility] [id number] 10:00:00 Test Item Value Reference Range Interpretation Comments Lymph CSF (test code = Lymph CSF) 17 40-80 L [facility] [id number] 10:00:00 Test Item Value Reference Range Interpretation Comments Supernat CSF (test code Xanthoch A = Supernat CSF) 4*ABN*(04/18/2012 05:00:00) [facility] [id number] 10:00:00 Test Item Value Reference Range Interpretation Comments WBC CSF (test code = 250 See_Comment H [Autom ated message] The WBC CSF) system which ge nerated this result transmit toño reference range : <=5. The reference range was not used to interpr et this result as alistair l/abnormal. [facility] [id number] 10:00:00 Test Item Value Reference Range Interpretation Comments RBC CSF (test code = 360 See_Comment H [Autom ated message] The RBC CSF) system which ge nerated this result transmit toño reference range : <=0. The reference range was not used to interpr et this result as alistair l/abnormal. [facility] [id number] 10:00:00 Test Item Value Reference Range Interpretation Comments Segs CSF (test code = 69 See_Comment H [Auto mated message] The Segs CSF) system which ge nerated this result transmit toño reference range : <=6. The reference range was not used to interpr et this result as alistair l/abnormal. [facility] [id number] 10:00:00 Test Item Value Reference Range Interpretation Comments Clarity CSF (test code Slight A = Clarity CSF) *ABN*(04/18/2012 05:00:00) [facility]2012-10-23 10:00:00 Test Item Value Reference Range Interpretation Comments Tube Num CSF (test xxxxxxx (04/18/2012 N code = Tube Num CSF) 05:00:00) [facility]2012-10-23 10:00:00 Test Item Value Reference Range Interpretation Comments Color CSF (test code Xanthoch A = Color CSF) 3*ABN*(04/18/2012 05:00:00) [facility] [id number] 10:00:00 Test Item Value Reference Range Interpretation Comments Protein CSF (test code = Protein CSF) 96 15-45 H [facility] [id number] 10:00:00 Test Item Value Reference Range Interpretation Comments Glucose CSF (test code = Glucose CSF) 40 45-80 L [facility]2012-10-23 10:00:00 Test Item Value Reference Range Interpretation Comments Monocyte CSF (test code = Monocyte CSF) 13 15-45 L [facility]2012-10-23 10:00:00 Test Item Value Reference Range Interpretation Comments Eos CSF (test code = Eos CSF) 1 [facility]2012-10-23 10:00:00 Test Item Value Reference Range Interpretation Comments Lymph CSF (test code = Lymph CSF) 17 40-80 L [facility]2012-10-23 10:00:00 Test Item Value Reference Range Interpretation Comments Supernat CSF (test code Xanthoch A = Supernat CSF) 4*ABN*(04/18/2012 05:00:00) [facility]2012-10-23 10:00:00 Test Item Value Reference Range Interpretation Comments WBC CSF (test code = 250 See_Comment H [Autom ated message] The WBC CSF) system which ge nerated this result transmit toño reference range : <=5. The reference range was not used to interpr et this result as alistair l/abnormal. [facility]2012-10-23 10:00:00 Test Item Value Reference Range Interpretation Comments RBC CSF (test code = 360 See_Comment H [Autom ated message] The RBC CSF) system which ge nerated this result transmit toño reference range : <=0. The reference range was not used to interpr et this result as alistair l/abnormal. [facility]2012-10-23 10:00:00 Test Item Value Reference Range Interpretation Comments Segs CSF (test code = 69 See_Comment H [Auto mated message] The Segs CSF) system which ge nerated this result transmit toño reference range : <=6. The reference range was not used to interpr et this result as alistair l/abnormal. [facility]2012-10-23 10:00:00 Test Item Value Reference Range Interpretation Comments Clarity CSF (test code Slight A = Clarity CSF) *ABN*(04/18/2012 05:00:00) [facility]2012-10-23 10:00:00 Test Item Value Reference Range Interpretation Comments Tube Num CSF (test xxxxxxx (04/18/2012 N code = Tube Num CSF) 05:00:00) [facility]2012-10-23 10:00:00 Test Item Value Reference Range Interpretation Comments Color CSF (test code Xanthoch A = Color CSF) 3*ABN*(04/18/2012 05:00:00) [id number] 12:35:00 Test Item Value Reference Range Interpretation Comments PTT (test code = PTT) 29.0 s 22.9-35.8 N [facility] HospitalHhbotmjVIUIOZPISK4681-52-71 12:35:00 Test Item Value Reference Range Interpretation Comments PT (test code = PT) 14.1 s 12.0-14.7 N [facility] HospitalNnhffifNPJYHPVENH2493-53-54 12:35:00 Test Item Value Reference Range Interpretation Comments INR (test code = INR) 1.07 0.85-1.17 N [facility] HospitalQiszblaDDAMSHXFVT6951-44-80 12:35:00 Test Item Value Reference Range Interpretation Comments PTT (test code = PTT) 29.0 s 22.9-35.8 N [facility] HospitalTgdrlshRJIYVXMGDK2148-71-29 12:35:00 Test Item Value Reference Range Interpretation Comments PT (test code = PT) 14.1 s 12.0-14.7 N [facility] HospitalRshrvvwEVRFVWLWSP3055-19-53 12:35:00 Test Item Value Reference Range Interpretation Comments INR (test code = INR) 1.07 0.85-1.17 N [facility] HospitalIomnkbaSBWOKQFYGA6823-40-48 12:35:00 Test Item Value Reference Range Interpretation Comments PTT (test code = PTT) 29.0 s 22.9-35.8 N [facility] HospitalWsykfrtUHEVRKNNWH3882-81-06 12:35:00 Test Item Value Reference Range Interpretation Comments PT (test code = PT) 14.1 s 12.0-14.7 N [facility] HospitalEktnbelTQOFORVZNV6570-17-27 12:35:00 Test Item Value Reference Range Interpretation Comments INR (test code = INR) 1.07 0.85-1.17 N [facility] HospitalYqvbycyVEAMLXIVOO2804-64-47 12:35:00 Test Item Value Reference Range Interpretation Comments PTT (test code = PTT) 29.0 s 22.9-35.8 N [facility] HospitalTkibhtbAQWNAGRUFW2662-29-26 12:35:00 Test Item Value Reference Range Interpretation Comments PT (test code = PT) 14.1 s 12.0-14.7 N [facility] HospitalCsojaerGXAPLBQXJD0346-68-72 12:35:00 Test Item Value Reference Range Interpretation Comments INR (test code = INR) 1.07 0.85-1.17 N [facility] [employer] [id number] 12:30:00 Test Item Value Reference Range Interpretation Comments Antibody Scrn (test Negative (04/17/2012 N code = Antibody Scrn) 07:30:00) [facility] [id number] 12:30:00 Test Item Value Reference Range Interpretation Comments ABO/Rh (test code = ABO/Rh) A NEG [facility] [employer] [id number] 12:30:00 Test Item Value Reference Range Interpretation Comments Antibody Scrn (test Negative (04/17/2012 N code = Antibody Scrn) 07:30:00) [facility] [id number] 12:30:00 Test Item Value Reference Range Interpretation Comments ABO/Rh (test code = ABO/Rh) A NEG [facility]lake[facility] [id number] 12:30:00 Test Item Value Reference Range Interpretation Comments Antibody Scrn (test Negative (04/17/2012 N code = Antibody Scrn) 07:30:00) [facility] [id number] 12:30:00 Test Item Value Reference Range Interpretation Comments ABO/Rh (test code = ABO/Rh) A [facility] [employer] [id number] 12:30:00 Test Item Value Reference Range Interpretation Comments Antibody Scrn (test Negative (04/17/2012 N code = Antibody Scrn) 07:30:00) [facility] [id number] 12:30:00 Test Item Value Reference Range Interpretation Comments ABO/Rh (test code = ABO/Rh) A NEG [facility] [employer]2012-10-22 11:25:00 Test Item Value Reference Range Interpretation Comments Glucose CSF (test code = Glucose CSF) 99 45-80 H [facility] SouthlakeSMRxTIFXHJD8514-16-45 11:25:00 Test Item Value Reference Range Interpretation Comments Lymph CSF (test code = Lymph CSF) 77 40-80 N [facility] [employer]2012-10-22 11:25:00 Test Item Value Reference Range Interpretation Comments Monocyte CSF (test code = Monocyte CSF) 13 15-45 L [facility] CenterKayentisLNOJUJ4531-69-79 11:25:00 Test Item Value Reference Range Interpretation Comments Segs CSF (test code = 8 See_Comment H [Auto mated message] The Segs CSF) system which ge nerated this result transmit toño reference range : <=6. The reference range was not used to interpr et this result as alistair l/abnormal. [facility] CenterKayentisWUYXVX3153-75-97 11:25:00 Test Item Value Reference Range Interpretation Comments Eos CSF (test code = Eos CSF) 2 [facility] [id number] 11:25:00 Test Item Value Reference Range Interpretation Comments Color CSF (test code Colorless (04/17/2012 N = Color CSF) 06:25:00) [facility] [id number] 11:25:00 Test Item Value Reference Range Interpretation Comments RBC CSF (test code = 22 See_Comment H [Autom ated message] The RBC CSF) system which ge nerated this result transmit toño reference range : <=0. The reference range was not used to interpr et this result as alistair l/abnormal. [facility] CenterKayentisVEHEDB0898-14-80 11:25:00 Test Item Value Reference Range Interpretation Comments Clarity CSF (test code = Clear (04/17/2012 N Clarity CSF) 06:25:00) [facility] [id number] 11:25:00 Test Item Value Reference Range Interpretation Comments Supernat CSF (test Colorless (04/17/2012 N code = Supernat CSF) 06:25:00) [facility] [id number] 11:25:00 Test Item Value Reference Range Interpretation Comments WBC CSF (test code = 105 See_Comment H [Autom ated message] The WBC CSF) system which ge nerated this result transmit toño reference range : <=5. The reference range was not used to interpr et this result as alistair l/abnormal. [facility] CenterKayentisKYINJC6073-13-33 11:25:00 Test Item Value Reference Range Interpretation Comments Tube Num CSF (test xxxxxxx (04/17/2012 N code = Tube Num CSF) 06:25:00) [facility] [id number] 11:25:00 Test Item Value Reference Range Interpretation Comments Protein CSF (test code = Protein CSF) 58 15-45 H [facility]2012-10-22 11:25:00 Test Item Value Reference Range Interpretation Comments Glucose CSF (test code = Glucose CSF) 99 45-80 H [facility]2012-10-22 11:25:00 Test Item Value Reference Range Interpretation Comments Lymph CSF (test code = Lymph CSF) 77 40-80 N [facility]2012-10-22 11:25:00 Test Item Value Reference Range Interpretation Comments Monocyte CSF (test code = Monocyte CSF) 13 15-45 L [facility]2012-10-22 11:25:00 Test Item Value Reference Range Interpretation Comments Segs CSF (test code = 8 See_Comment H [Auto mated message] The Segs CSF) system which ge nerated this result transmit toño reference range : <=6. The reference range was not used to interpr et this result as alistair l/abnormal. [facility]2012-10-22 11:25:00 Test Item Value Reference Range Interpretation Comments Eos CSF (test code = Eos CSF) 2 [facility]2012-10-22 11:25:00 Test Item Value Reference Range Interpretation Comments Color CSF (test code Colorless (04/17/2012 N = Color CSF) 06:25:00) [facility]2012-10-22 11:25:00 Test Item Value Reference Range Interpretation Comments RBC CSF (test code = 22 See_Comment H [Autom ated message] The RBC CSF) system which ge nerated this result transmit toño reference range : <=0. The reference range was not used to interpr et this result as alistair l/abnormal. [facility]2012-10-22 11:25:00 Test Item Value Reference Range Interpretation Comments Clarity CSF (test code = Clear (04/17/2012 N Clarity CSF) 06:25:00) [facility]2012-10-22 11:25:00 Test Item Value Reference Range Interpretation Comments Supernat CSF (test Colorless (04/17/2012 N code = Supernat CSF) 06:25:00) [facility]2012-10-22 11:25:00 Test Item Value Reference Range Interpretation Comments WBC CSF (test code = 105 See_Comment H [Autom ated message] The WBC CSF) system which ge nerated this result transmit toño reference range : <=5. The reference range was not used to interpr et this result as alistair l/abnormal. [facility]2012-10-22 11:25:00 Test Item Value Reference Range Interpretation Comments Tube Num CSF (test xxxxxxx (04/17/2012 N code = Tube Num CSF) 06:25:00) [facility]2012-10-22 11:25:00 Test Item Value Reference Range Interpretation Comments Protein CSF (test code = Protein CSF) 58 15-45 H [facility]2012-10-22 11:25:00 Test Item Value Reference Range Interpretation Comments Glucose CSF (test code = Glucose CSF) 99 45-80 H [facility]2012-10-22 11:25:00 Test Item Value Reference Range Interpretation Comments Lymph CSF (test code = Lymph CSF) 77 40-80 N [facility]2012-10-22 11:25:00 Test Item Value Reference Range Interpretation Comments Monocyte CSF (test code = Monocyte CSF) 13 15-45 L [facility]2012-10-22 11:25:00 Test Item Value Reference Range Interpretation Comments Segs CSF (test code = 8 See_Comment H [Auto mated message] The Segs CSF) system which ge nerated this result transmit toño reference range : <=6. The reference range was not used to interpr et this result as alistair l/abnormal. [facility]2012-10-22 11:25:00 Test Item Value Reference Range Interpretation Comments Eos CSF (test code = Eos CSF) 2 [facility]2012-10-22 11:25:00 Test Item Value Reference Range Interpretation Comments Color CSF (test code Colorless (04/17/2012 N = Color CSF) 06:25:00) [facility]2012-10-22 11:25:00 Test Item Value Reference Range Interpretation Comments RBC CSF (test code = 22 See_Comment H [Autom ated message] The RBC CSF) system which ge nerated this result transmit toño reference range : <=0. The reference range was not used to interpr et this result as alistair l/abnormal. [facility]2012-10-22 11:25:00 Test Item Value Reference Range Interpretation Comments Clarity CSF (test code = Clear (04/17/2012 N Clarity CSF) 06:25:00) [facility] [id number] 11:25:00 Test Item Value Reference Range Interpretation Comments Supernat CSF (test Colorless (04/17/2012 N code = Supernat CSF) 06:25:00) [facility] [id number] 11:25:00 Test Item Value Reference Range Interpretation Comments WBC CSF (test code = 105 See_Comment H [Autom ated message] The WBC CSF) system which ge nerated this result transmit toño reference range : <=5. The reference range was not used to interpr et this result as alistair l/abnormal. [facility] [id number] 11:25:00 Test Item Value Reference Range Interpretation Comments Tube Num CSF (test xxxxxxx (04/17/2012 N code = Tube Num CSF) 06:25:00) [facility] [id number] 11:25:00 Test Item Value Reference Range Interpretation Comments Protein CSF (test code = Protein CSF) 58 15-45 H [facility] [id number] 11:25:00 Test Item Value Reference Range Interpretation Comments Glucose CSF (test code = Glucose CSF) 99 45-80 H [facility] [id number] 11:25:00 Test Item Value Reference Range Interpretation Comments Lymph CSF (test code = Lymph CSF) 77 40-80 N [facility] [id number] 11:25:00 Test Item Value Reference Range Interpretation Comments Monocyte CSF (test code = Monocyte CSF) 13 15-45 L [facility] [id number] 11:25:00 Test Item Value Reference Range Interpretation Comments Segs CSF (test code = 8 See_Comment H [Auto mated message] The Segs CSF) system which ge nerated this result transmit toño reference range : <=6. The reference range was not used to interpr et this result as alistair l/abnormal. [facility] [id number] 11:25:00 Test Item Value Reference Range Interpretation Comments Eos CSF (test code = Eos CSF) 2 [facility] [id number] 11:25:00 Test Item Value Reference Range Interpretation Comments Color CSF (test code Colorless (04/17/2012 N = Color CSF) 06:25:00) [facility] [id number] 11:25:00 Test Item Value Reference Range Interpretation Comments RBC CSF (test code = 22 See_Comment H [Autom ated message] The RBC CSF) system which ge nerated this result transmit toño reference range : <=0. The reference range was not used to interpr et this result as alistair l/abnormal. [facility] CenterKayentisSXAEKI4701-81-84 11:25:00 Test Item Value Reference Range Interpretation Comments Clarity CSF (test code = Clear (04/17/2012 N Clarity CSF) 06:25:00) [facility] [id number] 11:25:00 Test Item Value Reference Range Interpretation Comments Supernat CSF (test Colorless (04/17/2012 N code = Supernat CSF) 06:25:00) [facility] [id number] 11:25:00 Test Item Value Reference Range Interpretation Comments WBC CSF (test code = 105 See_Comment H [Autom ated message] The WBC CSF) system which ge nerated this result transmit toño reference range : <=5. The reference range was not used to interpr et this result as alistair l/abnormal. [facility] [id number] 11:25:00 Test Item Value Reference Range Interpretation Comments Tube Num CSF (test xxxxxxx (04/17/2012 N code = Tube Num CSF) 06:25:00) [facility] [id number] 11:25:00 Test Item Value Reference Range Interpretation Comments Protein CSF (test code = Protein CSF) 58 15-45 H [facility]lakeXabheqpDGEMYAETQ9098-83-80 05:01:00 Test Item Value Reference Range Interpretation Comments Sodium Lvl (test code = Sodium Lvl) 137 135-145 N [facility] SouthlakeBffopiiBBLIDDBPA2081-27-02 05:01:00 Test Item Value Reference Range Interpretation Comments Creatinine Lvl (test code = Creatinine 0.9 0.5-1.4 N Lvl) [facility]lakeTxbvaasMSZJCBUIY1550-69-26 05:01:00 Test Item Value Reference Range Interpretation Comments Potassium Lvl (test code = Potassium 4.8 3.5-5.1 N Lvl) [facility] CenterMnzohgqBHRRFTGHQ0921-00-24 05:01:00 Test Item Value Reference Range Interpretation Comments Glucose Lvl (test code = Glucose Lvl) 249 70-99 [facility]tawvnbAWMYTWDYT1885-38-42 05:01:00 Test Item Value Reference Range Interpretation Comments BUN (test code = BUN) 12 7-22 N [facility]TjgaqwiLUQNYWVCO8633-50-78 05:01:00 Test Item Value Reference Range Interpretation Comments eGFR (test code = eGFR) 99 [facility] CenterBgchezsWLUCSUHYP0946-11-78 05:01:00 Test Item Value Reference Range Interpretation Comments AGAP (test code = AGAP) 14.8 10.0-20.0 N [facility] CenterGoogqpfXDSHEVROQ8766-13-95 05:01:00 Test Item Value Reference Range Interpretation Comments Calcium Lvl (test code = Calcium Lvl) 8.6 8.5-10.5 N [facility] CenterRxchkkjXJOCCDLFX3566-05-76 05:01:00 Test Item Value Reference Range Interpretation Comments CO2 (test code = CO2) 26 24-32 N [facility] CenterPctusrdLCXPVNAIJ7577-04-02 05:01:00 Test Item Value Reference Range Interpretation Comments Chloride Lvl (test code = Chloride Lvl) 101 95-109 N [facility] CenterNzmkrzbBSWLIJMUW4320-34-70 05:01:00 Test Item Value Reference Range Interpretation Comments Sodium Lvl (test code = Sodium Lvl) 137 135-145 N [facility] CenterOwbuymbUUOFOPQHE2824-58-22 05:01:00 Test Item Value Reference Range Interpretation Comments Creatinine Lvl (test code = Creatinine 0.9 0.5-1.4 N Lvl) [facility] CenterCbroozzHAWEQSPQW9564-24-02 05:01:00 Test Item Value Reference Range Interpretation Comments Potassium Lvl (test code = Potassium 4.8 3.5-5.1 N Lvl) [facility] CenterHmgcudbMBXUXEOVR0114-64-21 05:01:00 Test Item Value Reference Range Interpretation Comments Glucose Lvl (test code = Glucose Lvl) 249 70-99 H [facility] CenterXljfloyJDVXXWIUH0332-55-77 05:01:00 Test Item Value Reference Range Interpretation Comments BUN (test code = BUN) 12 7-22 N [facility] CenterEbonuhuDVFYYQCEH6013-71-60 05:01:00 Test Item Value Reference Range Interpretation Comments eGFR (test code = eGFR) 99 [facility] CenterEvaxzhjJZZMZUTPY1816-77-13 05:01:00 Test Item Value Reference Range Interpretation Comments AGAP (test code = AGAP) 14.8 10.0-20.0 N [facility] CenterHvhumtyXGWTGNQWB4382-11-75 05:01:00 Test Item Value Reference Range Interpretation Comments Calcium Lvl (test code = Calcium Lvl) 8.6 8.5-10.5 N [facility] CenterVesqgoaMRDICCSSM4229-53-89 05:01:00 Test Item Value Reference Range Interpretation Comments CO2 (test code = CO2) 26 24-32 N [facility] CenterPnpsdpwSIGXZCRFH9429-73-18 05:01:00 Test Item Value Reference Range Interpretation Comments Chloride Lvl (test code = Chloride Lvl) 101 95-109 N [facility] CenterUvygczyFVSAMWRJZ5609-02-36 05:01:00 Test Item Value Reference Range Interpretation Comments Sodium Lvl (test code = Sodium Lvl) 137 135-145 N [facility] CenterCvtmxciGSCILZGXF0892-11-67 05:01:00 Test Item Value Reference Range Interpretation Comments Creatinine Lvl (test code = Creatinine 0.9 0.5-1.4 N Lvl) [facility] CenterOngzbliYXINROYLZ8897-54-50 05:01:00 Test Item Value Reference Range Interpretation Comments Potassium Lvl (test code = Potassium 4.8 3.5-5.1 N Lvl) [facility] CenterRxohbuaZLGSILQOJ3122-21-63 05:01:00 Test Item Value Reference Range Interpretation Comments Glucose Lvl (test code = Glucose Lvl) 249 70-99 H [facility] CenterJlyodpbOWKUHGFXF3243-52-25 05:01:00 Test Item Value Reference Range Interpretation Comments BUN (test code = BUN) 12 7-22 N [facility] CenterZcelllxRFPIFIFKC6144-38-60 05:01:00 Test Item Value Reference Range Interpretation Comments eGFR (test code = eGFR) 99 [facility] CenterPgvqjozQIXMCGRIB7543-33-73 05:01:00 Test Item Value Reference Range Interpretation Comments AGAP (test code = AGAP) 14.8 10.0-20.0 N [facility] CenterPcfbtefIULJRKBSH3780-59-63 05:01:00 Test Item Value Reference Range Interpretation Comments Calcium Lvl (test code = Calcium Lvl) 8.6 8.5-10.5 N [facility] CenterHydfwtpETUHYMTNZ7622-57-29 05:01:00 Test Item Value Reference Range Interpretation Comments CO2 (test code = CO2) 26 24-32 N [facility] CenterWhnmcbwRVPRSSLIK7813-29-69 05:01:00 Test Item Value Reference Range Interpretation Comments Chloride Lvl (test code = Chloride Lvl) 101 95-109 [facility]EcsleyuBOUFGJOWC2182-49-64 05:01:00 Test Item Value Reference Range Interpretation Comments Sodium Lvl (test code = Sodium Lvl) 137 135-145 N [facility] CenterZuielmnVCIIMEFDQ1937-04-28 05:01:00 Test Item Value Reference Range Interpretation Comments Creatinine Lvl (test code = Creatinine 0.9 0.5-1.4 N Lvl) [facility] CenterAoluespZNTQBBPRA7059-67-62 05:01:00 Test Item Value Reference Range Interpretation Comments Potassium Lvl (test code = Potassium 4.8 3.5-5.1 N Lvl) [facility] CenterVlqcglhCUQOVMALN2559-74-24 05:01:00 Test Item Value Reference Range Interpretation Comments Glucose Lvl (test code = Glucose Lvl) 249 70-99 H [facility] CenterUdxdvykEARNFCSET7340-63-14 05:01:00 Test Item Value Reference Range Interpretation Comments BUN (test code = BUN) 12 7-22 N [facility] CenterQndpfcpKLKTSBJPZ6850-34-65 05:01:00 Test Item Value Reference Range Interpretation Comments eGFR (test code = eGFR) 99 [facility] CenterOnfyiuhTCRUUXAZQ6884-74-42 05:01:00 Test Item Value Reference Range Interpretation Comments AGAP (test code = AGAP) 14.8 10.0-20.0 N [facility] CenterTlaclbjFSBXBWHGC6515-50-97 05:01:00 Test Item Value Reference Range Interpretation Comments Calcium Lvl (test code = Calcium Lvl) 8.6 8.5-10.5 N [facility] CenterTtjvtahSLRHHTOAX3709-98-40 05:01:00 Test Item Value Reference Range Interpretation Comments CO2 (test code = CO2) 26 24-32 N [facility] CenterGfeqjnoPOXSSPMXY2212-61-12 05:01:00 Test Item Value Reference Range Interpretation Comments Chloride Lvl (test code = Chloride Lvl) 101 95-109 N [facility] CenterItxiagkAULQGOTPC8292-00-51 22:30:00 Test Item Value Reference Range Interpretation Comments Natalie Gore TND (test code = Vanco Tr TND) 1730 [facility] CenterZathftnQJFQGQVVA5375-72-59 22:30:00 Test Item Value Reference Range Interpretation Comments Natalie Tr (test code = Soraidao Tr) 18.4 [facility] CenterKwhbtgqQUQZVWTGT0739-78-66 22:30:00 Test Item Value Reference Range Interpretation Comments Vanco Tr TND (test code = Vanco Tr TND) 1730 [facility] CenterNhyvkxmNHJPNPCQE4809-29-52 22:30:00 Test Item Value Reference Range Interpretation Comments Vanco Tr (test code = Vanco Tr) 18.4 [facility] CenterLirdxslJEWNZLSKH9940-27-46 22:30:00 Test Item Value Reference Range Interpretation Comments Vanco Tr TND (test code = Vanco Tr TND) 1730 [facility] CenterPvvjyjaAOMHHVRZE5971-25-18 22:30:00 Test Item Value Reference Range Interpretation Comments Vanco Tr (test code = Vanco Tr) 18.4 [facility] CenterOlyzdvfMNDYPHYNN4026-76-02 22:30:00 Test Item Value Reference Range Interpretation Comments Vanco Tr TND (test code = Vanco Tr TND) 1730 [facility] CenterQtfxtlzTMKAVYCQD9116-89-44 22:30:00 Test Item Value Reference Range Interpretation Comments Vanco Tr (test code = Vanco Tr) 18.4 [facility] CenterYmjrkavKNPTBSWSN5773-29-89 05:26:00 Test Item Value Reference Range Interpretation Comments eGFR (test code = eGFR) 99 [facility] CenterXqkyfrbWWFXTRNHK4881-23-14 05:26:00 Test Item Value Reference Range Interpretation Comments AGAP (test code = AGAP) 12.8 10.0-20.0 N [facility] CenterQsartvnJIIETBQJJ2032-66-26 05:26:00 Test Item Value Reference Range Interpretation Comments Calcium Lvl (test code = Calcium Lvl) 8.9 8.5-10.5 N [facility] CenterSzvfosoCHBOEVTMB6691-01-75 05:26:00 Test Item Value Reference Range Interpretation Comments CO2 (test code = CO2) 28 24-32 N [facility] CenterEyiywneQLPYMWNEC3805-90-92 05:26:00 Test Item Value Reference Range Interpretation Comments Sodium Lvl (test code = Sodium Lvl) 138 135-145 N [facility] CenterWcagjwkELMXDPDTN7915-19-86 05:26:00 Test Item Value Reference Range Interpretation Comments Chloride Lvl (test code = Chloride Lvl) 102 95-109 N [facility] CenterGnitoitCHEKPEVHR4798-45-91 05:26:00 Test Item Value Reference Range Interpretation Comments Potassium Lvl (test code = Potassium 4.8 3.5-5.1 N Lvl) [facility] CenterMcyffuqKAMPLFLPN5346-72-82 05:26:00 Test Item Value Reference Range Interpretation Comments Glucose Lvl (test code = Glucose Lvl) 230 70-99 H [facility] CenterTsppwlzCUHENVFLC0219-52-54 05:26:00 Test Item Value Reference Range Interpretation Comments BUN (test code = BUN) 13 7-22 N [facility] CenterTbxqswmIVIDACHNF9435-32-49 05:26:00 Test Item Value Reference Range Interpretation Comments Creatinine Lvl (test code = Creatinine 0.9 0.5-1.4 N Lvl) [facility] HospitalGeqbaauPPHZCLIFLQ3892-56-58 05:26:00 Test Item Value Reference Range Interpretation Comments Hgb (test code = Hgb) 10.8 12.0-16.0 L [facility] HospitalJqmeqifEJPUMWLATZ8482-97-54 05:26:00 Test Item Value Reference Range Interpretation Comments WBC (test code = WBC) 8.8 3.7-10.4 N [facility] HospitalQygsjvzAZNIJKUJBR6378-28-71 05:26:00 Test Item Value Reference Range Interpretation Comments RBC (test code = RBC) 4.31 4.20-5.40 N [facility] HospitalBdftnhcWCBDWKIJRD8426-25-55 05:26:00 Test Item Value Reference Range Interpretation Comments MCHC (test code = MCHC) 31.8 32.0-36.0 L [facility] HospitalLsvridfWZGZXROEVL7086-49-50 05:26:00 Test Item Value Reference Range Interpretation Comments RDW (test code = RDW) 15.5 11.5-14.5 H [facility] HospitalAbdwbkwCTXNBYHKWK3344-55-15 05:26:00 Test Item Value Reference Range Interpretation Comments Platelet (test code = Platelet) 303 133-450 N [facility] HospitalEswzrfxUOEGHHOFED4329-24-93 05:26:00 Test Item Value Reference Range Interpretation Comments MPV (test code = MPV) 9.3 7.4-10.4 N [facility] HospitalUfkyiyxDRQPCSXOPR9257-55-28 05:26:00 Test Item Value Reference Range Interpretation Comments Hct (test code = Hct) 33.9 36.0-48.0 L [facility] HospitalQnbxzjoIAQNUMWXNS2111-03-87 05:26:00 Test Item Value Reference Range Interpretation Comments MCV (test code = MCV) 78.6 81.0-99.0 L [facility] HospitalJnpmlimAIYISSMCOO6537-38-59 05:26:00 Test Item Value Reference Range Interpretation Comments MCH (test code = MCH) 25.0 pg 27.0-31.0 L [facility] HospitalVyhasqeCQYQWEZJDG5138-34-48 05:26:00 Test Item Value Reference Range Interpretation Comments Basophils # (test code 0.0 See_Comment N [Aut omated message] The = Basophils #) system which generated this result tra nsmitted reference range : <=0.2. The reference r nan was not used to int erpret this result as normal/abnormal . [facility] HospitalHscjlrtBRZPAUVZDW4062-16-46 05:26:00 Test Item Value Reference Range Interpretation Comments Microcyte (test code = 1+ *ABN*(04/16/2012 A Microcyte) 00:26:00) [facility] HospitalHjsxrukGBMBOIUHBF3826-13-35 05:26:00 Test Item Value Reference Range Interpretation Comments Monocytes # (test code 0.4 See_Comment N [Aut omated message] The = Monocytes #) system which generated this result tra nsmitted reference range : <=0.8. The reference r nan was not used to int erpret this result as normal/abnormal . [facility] HospitalOaaaxfiFUARXWUMZF1084-88-46 05:26:00 Test Item Value Reference Range Interpretation Comments Eosinophils # (test code 0.0 See_Comment N [A utomated message] The = Eosinophils #) system psychiatric h generated this result tra nsmitted reference range : <=0.5. The reference r nan was not used to int erpret this result as normal/abnormal . [facility] HospitalBxvllevYIWCAUWSOV3968-86-97 05:26:00 Test Item Value Reference Range Interpretation Comments Eosinophils (test code = 0.1 See_Comment N [A utomated message] The Eosinophils) system which ge nerated this result tra nsmitted reference range : <=4.0. The reference r nan was not used to int erpret this result as normal/abnormal . [facility] HospitalYarjczlIEWFDEPRPD8381-78-71 05:26:00 Test Item Value Reference Range Interpretation Comments Basophils (test code = 0.0 See_Comment N [Aut omated message] The Basophils) system which ge nerated this result tra nsmitted reference range : <=1.0. The reference r nan was not used to int erpret this result as normal/abnormal . [facility] HospitalCypmyntVMOVTWMDAT5963-98-48 05:26:00 Test Item Value Reference Range Interpretation Comments Segs-Bands # (test code = Segs-Bands #) 7.3 1.5-8.1 N [facility] HospitalLfuhiagKRLUICHTPO5075-08-32 05:26:00 Test Item Value Reference Range Interpretation Comments Lymphocytes # (test code = Lymphocytes 1.2 1.0-5.5 N #) [facility] HospitalThlcdmbUIUZUQTOIO3511-66-27 05:26:00 Test Item Value Reference Range Interpretation Comments Lymphocytes (test code = Lymphocytes) 13.4 20.0-40.0 L [facility] HospitalLubzphiRNVTDKGVWQ1872-31-88 05:26:00 Test Item Value Reference Range Interpretation Comments Monocytes (test code = Monocytes) 4.1 2.0-12.0 N [facility] HospitalAuvbnkoNOEVIUDNGT8925-32-39 05:26:00 Test Item Value Reference Range Interpretation Comments Segs (test code = Segs) 82.4 45.0-75.0 H [facility] CenterVamkojgMVHJRRPBL3283-41-36 05:26:00 Test Item Value Reference Range Interpretation Comments eGFR (test code = eGFR) 99 [facility] CenterPorfmcfZOJUQKTHZ4418-94-92 05:26:00 Test Item Value Reference Range Interpretation Comments AGAP (test code = AGAP) 12.8 10.0-20.0 N [facility] CenterOgvuyrtGFEOUTQWO8903-93-91 05:26:00 Test Item Value Reference Range Interpretation Comments Calcium Lvl (test code = Calcium Lvl) 8.9 8.5-10.5 N [facility] CenterLcfsicvNQJRQTMMB6062-80-56 05:26:00 Test Item Value Reference Range Interpretation Comments CO2 (test code = CO2) 28 24-32 N [facility] CenterMcpxdxoTWRSQRCCB7577-64-66 05:26:00 Test Item Value Reference Range Interpretation Comments Sodium Lvl (test code = Sodium Lvl) 138 135-145 N [facility] CenterEnivsbjFBSZLIAMW4482-50-72 05:26:00 Test Item Value Reference Range Interpretation Comments Chloride Lvl (test code = Chloride Lvl) 102 95-109 N [facility] CenterUlnzzchWGTVEFVMO0148-34-94 05:26:00 Test Item Value Reference Range Interpretation Comments Potassium Lvl (test code = Potassium 4.8 3.5-5.1 N Lvl) [facility] CenterXnkbebeWYUPEFZEP0385-90-02 05:26:00 Test Item Value Reference Range Interpretation Comments Glucose Lvl (test code = Glucose Lvl) 230 70-99 H [facility] CenterCvfkktsMAEMQFUVX4517-34-99 05:26:00 Test Item Value Reference Range Interpretation Comments BUN (test code = BUN) 13 7-22 N [facility] CenterPcrxtkvHYBQJHDAJ6572-33-70 05:26:00 Test Item Value Reference Range Interpretation Comments Creatinine Lvl (test code = Creatinine 0.9 0.5-1.4 N Lvl) [facility] HospitalKuzdgcaTLBNXKAKBR2305-17-38 05:26:00 Test Item Value Reference Range Interpretation Comments Hgb (test code = Hgb) 10.8 12.0-16.0 L [facility] HospitalWpqcczqLIXQKDRBQQ3824-29-43 05:26:00 Test Item Value Reference Range Interpretation Comments WBC (test code = WBC) 8.8 3.7-10.4 N [facility] HospitalJyqnuffMMYXJZTPKM6448-23-06 05:26:00 Test Item Value Reference Range Interpretation Comments RBC (test code = RBC) 4.31 4.20-5.40 N [facility] HospitalSwulpwrPFPWQRIGRU6383-44-72 05:26:00 Test Item Value Reference Range Interpretation Comments MCHC (test code = MCHC) 31.8 32.0-36.0 L [facility] HospitalYfleuioLLVLPMNIHZ6199-01-58 05:26:00 Test Item Value Reference Range Interpretation Comments RDW (test code = RDW) 15.5 11.5-14.5 H [facility] HospitalUwapkwaKWKJUGZOWF9066-37-19 05:26:00 Test Item Value Reference Range Interpretation Comments Platelet (test code = Platelet) 303 133-450 N [facility] HospitalGsveeacLVCXXXQYPR2577-23-82 05:26:00 Test Item Value Reference Range Interpretation Comments MPV (test code = MPV) 9.3 7.4-10.4 N [facility] HospitalTykuyitMSRSPYMSMM2698-40-86 05:26:00 Test Item Value Reference Range Interpretation Comments Hct (test code = Hct) 33.9 36.0-48.0 L [facility] HospitalRhjvqwfRWKKOWHOUT4650-33-93 05:26:00 Test Item Value Reference Range Interpretation Comments MCV (test code = MCV) 78.6 81.0-99.0 L [facility] HospitalAznrrbjTOXZLHRLNQ5543-51-35 05:26:00 Test Item Value Reference Range Interpretation Comments MCH (test code = MCH) 25.0 pg 27.0-31.0 L [facility] HospitalNaptwvdBADOLTQEFF4862-24-61 05:26:00 Test Item Value Reference Range Interpretation Comments Basophils # (test code 0.0 See_Comment N [Aut omated message] The = Basophils #) system which generated this result tra nsmitted reference range : <=0.2. The reference r nan was not used to int erpret this result as normal/abnormal . [facility] HospitalGagssukSTWTWYXBLO3983-83-55 05:26:00 Test Item Value Reference Range Interpretation Comments Microcyte (test code = 1+ *ABN*(04/16/2012 A Microcyte) 00:26:00) [facility] HospitalEkmepdaSLUSPKRXNU3844-36-78 05:26:00 Test Item Value Reference Range Interpretation Comments Monocytes # (test code 0.4 See_Comment N [Aut omated message] The = Monocytes #) system which generated this result tra nsmitted reference range : <=0.8. The reference r nan was not used to int erpret this result as normal/abnormal . [facility] HospitalEdozqnoBKCSXQEPDS2169-59-29 05:26:00 Test Item Value Reference Range Interpretation Comments Eosinophils # (test code 0.0 See_Comment N [A utomated message] The = Eosinophils #) system whic h generated this result tra nsmitted reference range : <=0.5. The reference r nan was not used to int erpret this result as normal/abnormal . [facility] HospitalRmobiqiAIVBWNVGWZ5917-37-19 05:26:00 Test Item Value Reference Range Interpretation Comments Eosinophils (test code = 0.1 See_Comment N [A utomated message] The Eosinophils) system which ge nerated this result tra nsmitted reference range : <=4.0. The reference r nan was not used to int erpret this result as normal/abnormal . [facility] HospitalWbooaiiRHEXYUUJEZ5042-23-41 05:26:00 Test Item Value Reference Range Interpretation Comments Basophils (test code = 0.0 See_Comment N [Aut omated message] The Basophils) system which ge nerated this result tra nsmitted reference range : <=1.0. The reference r nan was not used to int erpret this result as normal/abnormal . [facility] HospitalJsufqpoCECXRAYCUY0506-25-00 05:26:00 Test Item Value Reference Range Interpretation Comments Segs-Bands # (test code = Segs-Bands #) 7.3 1.5-8.1 N [facility] HospitalFwdzrklYUPSNZVQWJ5021-80-59 05:26:00 Test Item Value Reference Range Interpretation Comments Lymphocytes # (test code = Lymphocytes 1.2 1.0-5.5 N #) [facility] HospitalBsnxzfwICERGCBLSP0257-46-83 05:26:00 Test Item Value Reference Range Interpretation Comments Lymphocytes (test code = Lymphocytes) 13.4 20.0-40.0 L [facility] HospitalRltsoqiWJPYABAMIC0545-87-84 05:26:00 Test Item Value Reference Range Interpretation Comments Monocytes (test code = Monocytes) 4.1 2.0-12.0 N [facility] HospitalEuyhifrYJLRHKDIXB5310-40-81 05:26:00 Test Item Value Reference Range Interpretation Comments Segs (test code = Segs) 82.4 45.0-75.0 H [facility] CenterOciifvfTRAOKDRHG7780-22-11 05:26:00 Test Item Value Reference Range Interpretation Comments eGFR (test code = eGFR) 99 [facility] CenterLnrjykfJVIIZPZVM5341-75-99 05:26:00 Test Item Value Reference Range Interpretation Comments AGAP (test code = AGAP) 12.8 10.0-20.0 N [facility] CenterAaetnjuMLKRSRJSO0340-21-77 05:26:00 Test Item Value Reference Range Interpretation Comments Calcium Lvl (test code = Calcium Lvl) 8.9 8.5-10.5 N [facility] CenterXhvlxrsEGEQNFMRH6123-94-84 05:26:00 Test Item Value Reference Range Interpretation Comments CO2 (test code = CO2) 28 24-32 N [facility] CenterIimdthsSKYYESGWZ1044-51-71 05:26:00 Test Item Value Reference Range Interpretation Comments Sodium Lvl (test code = Sodium Lvl) 138 135-145 N [facility] CenterKvzzoioUKJGESOTL5259-11-43 05:26:00 Test Item Value Reference Range Interpretation Comments Chloride Lvl (test code = Chloride Lvl) 102 95-109 N [facility] CenterQqpxqumIZKCYVCEP8715-75-34 05:26:00 Test Item Value Reference Range Interpretation Comments Potassium Lvl (test code = Potassium 4.8 3.5-5.1 N Lvl) [facility] CenterFvoncreODIGEQDKX5347-73-28 05:26:00 Test Item Value Reference Range Interpretation Comments Glucose Lvl (test code = Glucose Lvl) 230 70-99 H [facility] CenterSblgyguTJJKBFEKL0345-87-63 05:26:00 Test Item Value Reference Range Interpretation Comments BUN (test code = BUN) 13 7-22 N [facility] CenterWcwkwqsJYFIGDZPY8550-13-18 05:26:00 Test Item Value Reference Range Interpretation Comments Creatinine Lvl (test code = Creatinine 0.9 0.5-1.4 N Lvl) [facility] HospitalRkcnkunMNBXYAWIEX7273-29-91 05:26:00 Test Item Value Reference Range Interpretation Comments Hgb (test code = Hgb) 10.8 12.0-16.0 L [facility] HospitalSoynbpqOLJVESBEBX7607-70-82 05:26:00 Test Item Value Reference Range Interpretation Comments WBC (test code = WBC) 8.8 3.7-10.4 N [facility] HospitalVyxrmfmQLXCBHWBYF7863-77-82 05:26:00 Test Item Value Reference Range Interpretation Comments RBC (test code = RBC) 4.31 4.20-5.40 N [facility] HospitalJuenfxgGYLDJMRUVA0018-98-99 05:26:00 Test Item Value Reference Range Interpretation Comments MCHC (test code = MCHC) 31.8 32.0-36.0 L [facility] HospitalKicebwoQEBSCOFOGH1454-43-74 05:26:00 Test Item Value Reference Range Interpretation Comments RDW (test code = RDW) 15.5 11.5-14.5 H [facility] HospitalUsbuhjjQSMKTCWOCH1818-74-16 05:26:00 Test Item Value Reference Range Interpretation Comments Platelet (test code = Platelet) 303 133-450 N [facility] HospitalGdtqwdiCQNGEWZKDJ1959-23-35 05:26:00 Test Item Value Reference Range Interpretation Comments MPV (test code = MPV) 9.3 7.4-10.4 N [facility] HospitalKrfkfffUUIBZAMGSM4062-40-24 05:26:00 Test Item Value Reference Range Interpretation Comments Hct (test code = Hct) 33.9 36.0-48.0 L [facility] HospitalWdacahnKIFQJDEHIM1413-11-08 05:26:00 Test Item Value Reference Range Interpretation Comments MCV (test code = MCV) 78.6 81.0-99.0 L [facility] HospitalTjideiuOPIVPSBPHP4284-22-29 05:26:00 Test Item Value Reference Range Interpretation Comments MCH (test code = MCH) 25.0 pg 27.0-31.0 L [facility] HospitalVixkypcNTHLIEBETG1961-03-15 05:26:00 Test Item Value Reference Range Interpretation Comments Basophils # (test code 0.0 See_Comment N [Aut omated message] The = Basophils #) system which generated this result tra nsmitted reference range : <=0.2. The reference r nan was not used to int erpret this result as normal/abnormal . [facility] HospitalXvzmgorNDNXUJFOJT8844-32-86 05:26:00 Test Item Value Reference Range Interpretation Comments Microcyte (test code = 1+ *ABN*(04/16/2012 A Microcyte) 00:26:00) [facility] HospitalZodfblzGYXMLHPNNF5406-26-31 05:26:00 Test Item Value Reference Range Interpretation Comments Monocytes # (test code 0.4 See_Comment N [Aut omated message] The = Monocytes #) system which generated this result tra nsmitted reference range : <=0.8. The reference r nan was not used to int erpret this result as normal/abnormal . [facility] HospitalWsblaheFKFNCKAWNN0878-25-62 05:26:00 Test Item Value Reference Range Interpretation Comments Eosinophils # (test code 0.0 See_Comment N [A utomated message] The = Eosinophils #) system whic h generated this result tra nsmitted reference range : <=0.5. The reference r nan was not used to int erpret this result as normal/abnormal . [facility] HospitalGbhyjelJIYSPYSBHN1240-28-91 05:26:00 Test Item Value Reference Range Interpretation Comments Eosinophils (test code = 0.1 See_Comment N [A utomated message] The Eosinophils) system which ge nerated this result tra nsmitted reference range : <=4.0. The reference r nan was not used to int erpret this result as normal/abnormal . [facility] HospitalBqdgsuuONWFISQCAB9213-80-07 05:26:00 Test Item Value Reference Range Interpretation Comments Basophils (test code = 0.0 See_Comment N [Aut omated message] The Basophils) system which ge nerated this result tra nsmitted reference range : <=1.0. The reference r nan was not used to int erpret this result as normal/abnormal . [facility] HospitalCcqvxrnQCYCCIFEZG7245-21-32 05:26:00 Test Item Value Reference Range Interpretation Comments Segs-Bands # (test code = Segs-Bands #) 7.3 1.5-8.1 N [facility] HospitalBwzseujKQLVEIWHBT2017-63-22 05:26:00 Test Item Value Reference Range Interpretation Comments Lymphocytes # (test code = Lymphocytes 1.2 1.0-5.5 N #) [facility] HospitalNbnhrgqPVZTHHAOSF2730-84-17 05:26:00 Test Item Value Reference Range Interpretation Comments Lymphocytes (test code = Lymphocytes) 13.4 20.0-40.0 L [facility] HospitalActwntsVRSSTUZWWN4016-77-72 05:26:00 Test Item Value Reference Range Interpretation Comments Monocytes (test code = Monocytes) 4.1 2.0-12.0 N [facility] HospitalIcdbdcwZYCMBFARDI0695-45-95 05:26:00 Test Item Value Reference Range Interpretation Comments Segs (test code = Segs) 82.4 45.0-75.0 H [facility] CenterLoryxnpSBAHNQSTX4174-18-82 05:26:00 Test Item Value Reference Range Interpretation Comments eGFR (test code = eGFR) 99 [facility] CenterTrzehyiCPAATUWGJ7946-70-26 05:26:00 Test Item Value Reference Range Interpretation Comments AGAP (test code = AGAP) 12.8 10.0-20.0 N [facility] CenterSefemuvCVLDWYTUZ3959-19-30 05:26:00 Test Item Value Reference Range Interpretation Comments Calcium Lvl (test code = Calcium Lvl) 8.9 8.5-10.5 N [facility] CenterTkqpquhZJJWVJNUH6164-79-07 05:26:00 Test Item Value Reference Range Interpretation Comments CO2 (test code = CO2) 28 24-32 N [facility] CenterDcjsctcABRJGHLZK0347-43-19 05:26:00 Test Item Value Reference Range Interpretation Comments Sodium Lvl (test code = Sodium Lvl) 138 135-145 N [facility] CenterPkefnknCJIOZCKNN0336-96-84 05:26:00 Test Item Value Reference Range Interpretation Comments Chloride Lvl (test code = Chloride Lvl) 102 95-109 N [facility] CenterZxsoireVSKJZVBHS1539-96-45 05:26:00 Test Item Value Reference Range Interpretation Comments Potassium Lvl (test code = Potassium 4.8 3.5-5.1 N Lvl) [facility] CenterYixtvziWIJGEFUGK1517-64-97 05:26:00 Test Item Value Reference Range Interpretation Comments Glucose Lvl (test code = Glucose Lvl) 230 70-99 H [facility] CenterKzmjfzmJJEWSTRZL6478-07-93 05:26:00 Test Item Value Reference Range Interpretation Comments BUN (test code = BUN) 13 7-22 N [facility] CenterRtcgpeePUBLWCENA0903-75-26 05:26:00 Test Item Value Reference Range Interpretation Comments Creatinine Lvl (test code = Creatinine 0.9 0.5-1.4 N Lvl) [facility] HospitalCzxsbxsNDWNTKGJKX7397-90-46 05:26:00 Test Item Value Reference Range Interpretation Comments Hgb (test code = Hgb) 10.8 12.0-16.0 L [facility] HospitalQypzddxNJUCDHBQTD0488-36-12 05:26:00 Test Item Value Reference Range Interpretation Comments WBC (test code = WBC) 8.8 3.7-10.4 N [facility] HospitalHnyjqorVVAYVDQGGS9861-24-96 05:26:00 Test Item Value Reference Range Interpretation Comments RBC (test code = RBC) 4.31 4.20-5.40 N [facility] HospitalXfkotznQHLHFJNJUR1609-49-26 05:26:00 Test Item Value Reference Range Interpretation Comments MCHC (test code = MCHC) 31.8 32.0-36.0 L [facility] HospitalNnckiqtZXMSGLFOVQ5837-74-56 05:26:00 Test Item Value Reference Range Interpretation Comments RDW (test code = RDW) 15.5 11.5-14.5 H [facility] HospitalSvclyhjVZYQGDYWGF1269-78-97 05:26:00 Test Item Value Reference Range Interpretation Comments Platelet (test code = Platelet) 303 133-450 N [facility] HospitalRcnxrzrTCZDSTUMTX5708-10-95 05:26:00 Test Item Value Reference Range Interpretation Comments MPV (test code = MPV) 9.3 7.4-10.4 N [facility] HospitalHrqjpikGOCTXAVJLW7397-76-83 05:26:00 Test Item Value Reference Range Interpretation Comments Hct (test code = Hct) 33.9 36.0-48.0 L [facility] HospitalPnqvbkgCVYVJSAZIU9825-40-23 05:26:00 Test Item Value Reference Range Interpretation Comments MCV (test code = MCV) 78.6 81.0-99.0 L [facility] HospitalGlmhteqNMZCRWKJJO5108-62-41 05:26:00 Test Item Value Reference Range Interpretation Comments MCH (test code = MCH) 25.0 pg 27.0-31.0 L [facility] HospitalObnnwwbSMPJJTSIAG9440-32-82 05:26:00 Test Item Value Reference Range Interpretation Comments Basophils # (test code 0.0 See_Comment N [Aut omated message] The = Basophils #) system which generated this result tra nsmitted reference range : <=0.2. The reference r nan was not used to int erpret this result as normal/abnormal . [facility] HospitalZtaffepCSGFNIVEXO4724-58-93 05:26:00 Test Item Value Reference Range Interpretation Comments Microcyte (test code = 1+ *ABN*(04/16/2012 A Microcyte) 00:26:00) [facility] HospitalEmgovsyRLJSCLJMSS9990-31-97 05:26:00 Test Item Value Reference Range Interpretation Comments Monocytes # (test code 0.4 See_Comment N [Aut omated message] The = Monocytes #) system which generated this result tra nsmitted reference range : <=0.8. The reference r nan was not used to int erpret this result as normal/abnormal . [facility] HospitalVohpfllSREIGLYPJR9065-03-80 05:26:00 Test Item Value Reference Range Interpretation Comments Eosinophils # (test code 0.0 See_Comment N [A utomated message] The = Eosinophils #) system whic h generated this result tra nsmitted reference range : <=0.5. The reference r nan was not used to int erpret this result as normal/abnormal . [facility] HospitalBfnulfrUSADKOPUXU2237-34-66 05:26:00 Test Item Value Reference Range Interpretation Comments Eosinophils (test code = 0.1 See_Comment N [A utomated message] The Eosinophils) system which ge nerated this result tra nsmitted reference range : <=4.0. The reference r nan was not used to int erpret this result as normal/abnormal . [facility] HospitalTabofgxBCXTXDPXYG1559-84-39 05:26:00 Test Item Value Reference Range Interpretation Comments Basophils (test code = 0.0 See_Comment N [Aut omated message] The Basophils) system which ge nerated this result tra nsmitted reference range : <=1.0. The reference r nan was not used to int erpret this result as normal/abnormal . [facility] HospitalZdvvposOPFRDUMGCE7624-09-35 05:26:00 Test Item Value Reference Range Interpretation Comments Segs-Bands # (test code = Segs-Bands #) 7.3 1.5-8.1 N [facility] HospitalMdprwyaZUBWDIZWPK3476-47-99 05:26:00 Test Item Value Reference Range Interpretation Comments Lymphocytes # (test code = Lymphocytes 1.2 1.0-5.5 N #) [facility] HospitalFozakhjRQHXRWVEEN2354-50-82 05:26:00 Test Item Value Reference Range Interpretation Comments Lymphocytes (test code = Lymphocytes) 13.4 20.0-40.0 L [facility] HospitalKoqaainQSYLCJTVIC1418-20-34 05:26:00 Test Item Value Reference Range Interpretation Comments Monocytes (test code = Monocytes) 4.1 2.0-12.0 N [facility] HospitalYpjdncjIAZUFXRRCO7265-79-23 05:26:00 Test Item Value Reference Range Interpretation Comments Segs (test code = Segs) 82.4 45.0-75.0 [facility]IapogqwEDHLFDOZQ5154-91-39 08:06:00 Test Item Value Reference Range Interpretation Comments eGFR (test code = eGFR) 114 [facility] CenterQrwjghkXHJXKIKNQ9106-62-06 08:06:00 Test Item Value Reference Range Interpretation Comments CO2 (test code = CO2) 27 24-32 N [facility] CenterAwnubkqITRFTZKNK4604-19-09 08:06:00 Test Item Value Reference Range Interpretation Comments Potassium Lvl (test code = Potassium 4.9 3.5-5.1 N Lvl) [facility] CenterLmtcwceMMPRVFUHS8263-06-86 08:06:00 Test Item Value Reference Range Interpretation Comments Calcium Lvl (test code = Calcium Lvl) 8.9 8.5-10.5 N [facility] CenterRghzdytQYEGKIMPL4979-62-34 08:06:00 Test Item Value Reference Range Interpretation Comments Chloride Lvl (test code = Chloride Lvl) 103 95-109 N [facility] CenterLmkruflXTVCHBLBU8012-06-99 08:06:00 Test Item Value Reference Range Interpretation Comments Glucose Lvl (test code = Glucose Lvl) 159 70-99 H [facility] CenterFfrlyduNNIIAFDXF2431-86-46 08:06:00 Test Item Value Reference Range Interpretation Comments BUN (test code = BUN) 11 7-22 N [facility] CenterYpdpopzQYCAGTNII4691-32-49 08:06:00 Test Item Value Reference Range Interpretation Comments Creatinine Lvl (test code = Creatinine 0.8 0.5-1.4 N Lvl) [facility] CenterUuflftsTSQLKSTGL8570-72-00 08:06:00 Test Item Value Reference Range Interpretation Comments Sodium Lvl (test code = Sodium Lvl) 138 135-145 N [facility] CenterPgarcalIWCASEOYP9269-89-41 08:06:00 Test Item Value Reference Range Interpretation Comments AGAP (test code = AGAP) 12.9 10.0-20.0 N [facility] HospitalIdiyytgYZDCJBHZUL3978-99-38 08:06:00 Test Item Value Reference Range Interpretation Comments MPV (test code = MPV) 9.6 7.4-10.4 N [facility] HospitalWnxjzulPLSLBOGMJM6924-43-37 08:06:00 Test Item Value Reference Range Interpretation Comments WBC (test code = WBC) 8.4 3.7-10.4 N [facility] HospitalMdlmlhxAUONDSYJMT7554-38-61 08:06:00 Test Item Value Reference Range Interpretation Comments Platelet (test code = Platelet) 304 133-450 N [facility] HospitalFoovoadJVKXNZIADE0399-09-32 08:06:00 Test Item Value Reference Range Interpretation Comments Hct (test code = Hct) 33.8 36.0-48.0 L [facility] HospitalSubqwscIGYWLEPIIU8006-96-84 08:06:00 Test Item Value Reference Range Interpretation Comments Hgb (test code = Hgb) 10.9 12.0-16.0 L [facility] HospitalTyomlhqUIBXJGGFYG2342-04-62 08:06:00 Test Item Value Reference Range Interpretation Comments RBC (test code = RBC) 4.28 4.20-5.40 N [facility] HospitalQwhadfaDXZZYLVGDA7928-89-26 08:06:00 Test Item Value Reference Range Interpretation Comments RDW (test code = RDW) 15.5 11.5-14.5 H [facility] HospitalRqdprlaZBHYAJQHYA6551-72-34 08:06:00 Test Item Value Reference Range Interpretation Comments MCHC (test code = MCHC) 32.2 32.0-36.0 N [facility] HospitalBukllklMSWGYDMEFP5441-65-98 08:06:00 Test Item Value Reference Range Interpretation Comments MCH (test code = MCH) 25.4 pg 27.0-31.0 L [facility] HospitalVwygipbKAUYYZAJJC9491-92-64 08:06:00 Test Item Value Reference Range Interpretation Comments MCV (test code = MCV) 79.0 81.0-99.0 L [facility] HospitalKknlxzoJUTXTNACFN6539-56-66 08:06:00 Test Item Value Reference Range Interpretation Comments Segs-Bands # (test code = Segs-Bands #) 7.5 1.5-8.1 N [facility] HospitalNreappgTWWBFJRYVS7556-62-22 08:06:00 Test Item Value Reference Range Interpretation Comments Basophils (test code = 0.7 See_Comment N [Aut omated message] The Basophils) system which ge nerated this result tra nsmitted reference range : <=1.0. The reference r nan was not used to int erpret this result as normal/abnormal . [facility] HospitalJukquyoBYMXYXAGWE5395-53-51 08:06:00 Test Item Value Reference Range Interpretation Comments Lymphocytes # (test code = Lymphocytes 0.7 1.0-5.5 L #) [facility] HospitalZopcpboTMUSKMGEZE5628-95-35 08:06:00 Test Item Value Reference Range Interpretation Comments Monocytes # (test code 0.2 See_Comment N [Aut omated message] The = Monocytes #) system which generated this result tra nsmitted reference range : <=0.8. The reference r nan was not used to int erpret this result as normal/abnormal . [facility] HospitalRyhvrbpWZZHWUUOVP4048-39-70 08:06:00 Test Item Value Reference Range Interpretation Comments Eosinophils # (test code 0.0 See_Comment N [A utomated message] The = Eosinophils #) system wh h generated this result tra nsmitted reference range : <=0.5. The reference r nan was not used to int erpret this result as normal/abnormal . [facility] HospitalSpcwmulKUNVPEBIGJ0179-50-22 08:06:00 Test Item Value Reference Range Interpretation Comments Basophils # (test code 0.1 See_Comment N [Aut omated message] The = Basophils #) system which generated this result tra nsmitted reference range : <=0.2. The reference r nan was not used to int erpret this result as normal/abnormal . [facility] HospitalFqsuawcJWWEFLRQJH6666-14-25 08:06:00 Test Item Value Reference Range Interpretation Comments Eosinophils (test code = 0.0 See_Comment N [A utomated message] The Eosinophils) system which ge nerated this result tra nsmitted reference range : <=4.0. The reference r nan was not used to int erpret this result as normal/abnormal . [facility] HospitalFsegtucICYVHSWKTK8684-60-22 08:06:00 Test Item Value Reference Range Interpretation Comments Monocytes (test code = Monocytes) 2.4 2.0-12.0 N [facility] HospitalVuzkgjmQPTTFUTVXL8188-46-09 08:06:00 Test Item Value Reference Range Interpretation Comments Lymphocytes (test code = Lymphocytes) 7.8 20.0-40.0 L [facility] HospitalKjxuaixOPQHLWNNDU0480-34-69 08:06:00 Test Item Value Reference Range Interpretation Comments Segs (test code = Segs) 89.1 45.0-75.0 H [facility] CenterBkxxchrSZFVVPYJF1462-23-57 08:06:00 Test Item Value Reference Range Interpretation Comments eGFR (test code = eGFR) 114 [facility] CenterVnhbaotEUGNTAEYQ7756-14-49 08:06:00 Test Item Value Reference Range Interpretation Comments CO2 (test code = CO2) 27 24-32 N [facility] CenterSxvysscTNSGLASSS8955-78-95 08:06:00 Test Item Value Reference Range Interpretation Comments Potassium Lvl (test code = Potassium 4.9 3.5-5.1 N Lvl) [facility] CenterQzapsxoXJWYGOBAG1971-93-47 08:06:00 Test Item Value Reference Range Interpretation Comments Calcium Lvl (test code = Calcium Lvl) 8.9 8.5-10.5 N [facility] CenterSfjjzujVCIQKUZUL1308-81-57 08:06:00 Test Item Value Reference Range Interpretation Comments Chloride Lvl (test code = Chloride Lvl) 103 95-109 N [facility] CenterPedaazwTSQKUXNYF0769-65-24 08:06:00 Test Item Value Reference Range Interpretation Comments Glucose Lvl (test code = Glucose Lvl) 159 70-99 H [facility] CenterYehphorZOCYZQJOE4580-38-99 08:06:00 Test Item Value Reference Range Interpretation Comments BUN (test code = BUN) 11 7-22 N [facility] CenterMeboeswWHBWWVQWZ4948-28-53 08:06:00 Test Item Value Reference Range Interpretation Comments Creatinine Lvl (test code = Creatinine 0.8 0.5-1.4 N Lvl) [facility] CenterRdtvnsiENCOFQHMQ6219-03-71 08:06:00 Test Item Value Reference Range Interpretation Comments Sodium Lvl (test code = Sodium Lvl) 138 135-145 N [facility] CenterRnqtzigGZECGKGDS0901-46-69 08:06:00 Test Item Value Reference Range Interpretation Comments AGAP (test code = AGAP) 12.9 10.0-20.0 N [facility] HospitalIdnwuyiYYSSGIJNHR0986-64-29 08:06:00 Test Item Value Reference Range Interpretation Comments MPV (test code = MPV) 9.6 7.4-10.4 N [facility] HospitalQzqoseoWOQPCWDIRF0778-77-33 08:06:00 Test Item Value Reference Range Interpretation Comments WBC (test code = WBC) 8.4 3.7-10.4 N [facility] HospitalYvgtgwgUBTKDCAPUB9950-99-77 08:06:00 Test Item Value Reference Range Interpretation Comments Platelet (test code = Platelet) 304 133-450 N [facility] HospitalBplxmcoCPEUDIMPMW0606-06-82 08:06:00 Test Item Value Reference Range Interpretation Comments Hct (test code = Hct) 33.8 36.0-48.0 L [facility] HospitalTgrffdrFFVELXBESR3069-34-56 08:06:00 Test Item Value Reference Range Interpretation Comments Hgb (test code = Hgb) 10.9 12.0-16.0 L [facility] HospitalBrozscqDCWXXLWOLS8123-40-22 08:06:00 Test Item Value Reference Range Interpretation Comments RBC (test code = RBC) 4.28 4.20-5.40 N [facility] HospitalYgcvexyQYEUBMJHLH7826-68-58 08:06:00 Test Item Value Reference Range Interpretation Comments RDW (test code = RDW) 15.5 11.5-14.5 H [facility] HospitalPrbtopzNELQLCEVGO8261-06-77 08:06:00 Test Item Value Reference Range Interpretation Comments MCHC (test code = MCHC) 32.2 32.0-36.0 N [facility] HospitalDcagfuyGYAVDAZIOD2106-68-70 08:06:00 Test Item Value Reference Range Interpretation Comments MCH (test code = MCH) 25.4 pg 27.0-31.0 L [facility] HospitalYruuyfxVEEMOVHLNK5230-24-83 08:06:00 Test Item Value Reference Range Interpretation Comments MCV (test code = MCV) 79.0 81.0-99.0 L [facility] HospitalNfmgdiiSWKEXYPNUN6053-55-97 08:06:00 Test Item Value Reference Range Interpretation Comments Segs-Bands # (test code = Segs-Bands #) 7.5 1.5-8.1 N [facility] HospitalDcnzgwqZWEZBBKRMY9782-00-41 08:06:00 Test Item Value Reference Range Interpretation Comments Basophils (test code = 0.7 See_Comment N [Aut omated message] The Basophils) system which ge nerated this result tra nsmitted reference range : <=1.0. The reference r nan was not used to int erpret this result as normal/abnormal . [facility] HospitalLecgbxrOAEZLUDRLG2231-32-41 08:06:00 Test Item Value Reference Range Interpretation Comments Lymphocytes # (test code = Lymphocytes 0.7 1.0-5.5 L #) [facility] HospitalEvgkfxaARFHYOMNPD1248-36-85 08:06:00 Test Item Value Reference Range Interpretation Comments Monocytes # (test code 0.2 See_Comment N [Aut omated message] The = Monocytes #) system which generated this result tra nsmitted reference range : <=0.8. The reference r nan was not used to int erpret this result as normal/abnormal . [facility] HospitalDphgmsbPMRNSQVNAO0099-00-74 08:06:00 Test Item Value Reference Range Interpretation Comments Eosinophils # (test code 0.0 See_Comment N [A utomated message] The = Eosinophils #) system wh h generated this result tra nsmitted reference range : <=0.5. The reference r nan was not used to int erpret this result as normal/abnormal . [facility] HospitalRopzcurIODLSRPIAS3308-21-51 08:06:00 Test Item Value Reference Range Interpretation Comments Basophils # (test code 0.1 See_Comment N [Aut omated message] The = Basophils #) system which generated this result tra nsmitted reference range : <=0.2. The reference r nan was not used to int erpret this result as normal/abnormal . [facility] HospitalCjkiukuTKJGHKWMZN4672-88-36 08:06:00 Test Item Value Reference Range Interpretation Comments Eosinophils (test code = 0.0 See_Comment N [A utomated message] The Eosinophils) system which ge nerated this result tra nsmitted reference range : <=4.0. The reference r nan was not used to int erpret this result as normal/abnormal . [facility] HospitalZtgoigrCKLFVGHKZL1185-50-75 08:06:00 Test Item Value Reference Range Interpretation Comments Monocytes (test code = Monocytes) 2.4 2.0-12.0 N [facility] HospitalFemcdnmNNGAXHKMDL1296-97-11 08:06:00 Test Item Value Reference Range Interpretation Comments Lymphocytes (test code = Lymphocytes) 7.8 20.0-40.0 L [facility] HospitalKpbzssfYEGWHUJRET4789-14-47 08:06:00 Test Item Value Reference Range Interpretation Comments Segs (test code = Segs) 89.1 45.0-75.0 H [facility] CenterFotiylaNMTPKUAYL2261-35-13 08:06:00 Test Item Value Reference Range Interpretation Comments eGFR (test code = eGFR) 114 [facility] CenterTstfnolLIZITBFWE7507-89-06 08:06:00 Test Item Value Reference Range Interpretation Comments CO2 (test code = CO2) 27 24-32 N [facility] CenterCfzfllbONWDYBCNK9898-96-82 08:06:00 Test Item Value Reference Range Interpretation Comments Potassium Lvl (test code = Potassium 4.9 3.5-5.1 N Lvl) [facility] CenterFzitpdgITQOVEFPE9363-08-63 08:06:00 Test Item Value Reference Range Interpretation Comments Calcium Lvl (test code = Calcium Lvl) 8.9 8.5-10.5 N [facility] CenterMdwnlxqCJOALHURZ3424-60-15 08:06:00 Test Item Value Reference Range Interpretation Comments Chloride Lvl (test code = Chloride Lvl) 103 95-109 N [facility] CenterBxagyseXHLEFMKSC2480-37-55 08:06:00 Test Item Value Reference Range Interpretation Comments Glucose Lvl (test code = Glucose Lvl) 159 70-99 H [facility] CenterGkuxmgxVSBMDJKTQ3345-07-02 08:06:00 Test Item Value Reference Range Interpretation Comments BUN (test code = BUN) 11 7-22 N [facility] CenterIvcmaizZQYPRCLQF2262-71-13 08:06:00 Test Item Value Reference Range Interpretation Comments Creatinine Lvl (test code = Creatinine 0.8 0.5-1.4 N Lvl) [facility] CenterBfywqmvAEBZIANPY6204-65-53 08:06:00 Test Item Value Reference Range Interpretation Comments Sodium Lvl (test code = Sodium Lvl) 138 135-145 N [facility] CenterDgnynftEMCPBBDGB2348-81-22 08:06:00 Test Item Value Reference Range Interpretation Comments AGAP (test code = AGAP) 12.9 10.0-20.0 N [facility] HospitalDbjqjmzHLUAEOPWST4237-06-17 08:06:00 Test Item Value Reference Range Interpretation Comments MPV (test code = MPV) 9.6 7.4-10.4 N [facility] HospitalSvbioskTKVVXZEBTT7455-27-52 08:06:00 Test Item Value Reference Range Interpretation Comments WBC (test code = WBC) 8.4 3.7-10.4 N [facility] HospitalGkkbdcdJULFPXMQJV4447-48-63 08:06:00 Test Item Value Reference Range Interpretation Comments Platelet (test code = Platelet) 304 133-450 N [facility] HospitalWjrlnumLSBUGAFMMQ0538-43-20 08:06:00 Test Item Value Reference Range Interpretation Comments Hct (test code = Hct) 33.8 36.0-48.0 L [facility] HospitalBtxhougYFKOBWOBBH8009-08-02 08:06:00 Test Item Value Reference Range Interpretation Comments Hgb (test code = Hgb) 10.9 12.0-16.0 L [facility] HospitalIoyathrIDBIVNZFIJ9091-77-05 08:06:00 Test Item Value Reference Range Interpretation Comments RBC (test code = RBC) 4.28 4.20-5.40 N [facility] HospitalVxpfwtnXRCMWERJCF2396-65-86 08:06:00 Test Item Value Reference Range Interpretation Comments RDW (test code = RDW) 15.5 11.5-14.5 H [facility] HospitalCfwudcyCVJLDUFYJH6675-05-35 08:06:00 Test Item Value Reference Range Interpretation Comments MCHC (test code = MCHC) 32.2 32.0-36.0 N [facility] HospitalAokfzjfFBFODFMONM3714-24-06 08:06:00 Test Item Value Reference Range Interpretation Comments MCH (test code = MCH) 25.4 pg 27.0-31.0 L [facility] HospitalVcqccmgLSBRGZRRYD7104-28-80 08:06:00 Test Item Value Reference Range Interpretation Comments MCV (test code = MCV) 79.0 81.0-99.0 L [facility] HospitalAvandzwALNHOIWZDL5902-51-22 08:06:00 Test Item Value Reference Range Interpretation Comments Segs-Bands # (test code = Segs-Bands #) 7.5 1.5-8.1 N [facility] HospitalDkiqyjdKZROQSJGAO3101-02-53 08:06:00 Test Item Value Reference Range Interpretation Comments Basophils (test code = 0.7 See_Comment N [Aut omated message] The Basophils) system which ge nerated this result tra nsmitted reference range : <=1.0. The reference r nan was not used to int erpret this result as normal/abnormal . [facility] HospitalMxzpunaIJKWUHHBUA2741-72-77 08:06:00 Test Item Value Reference Range Interpretation Comments Lymphocytes # (test code = Lymphocytes 0.7 1.0-5.5 L #) [facility] HospitalLtjpegrDXOOMQLHXK4764-44-35 08:06:00 Test Item Value Reference Range Interpretation Comments Monocytes # (test code 0.2 See_Comment N [Aut omated message] The = Monocytes #) system which generated this result tra nsmitted reference range : <=0.8. The reference r nan was not used to int erpret this result as normal/abnormal . [facility] HospitalZajzuerJNGKLPELEX2140-80-09 08:06:00 Test Item Value Reference Range Interpretation Comments Eosinophils # (test code 0.0 See_Comment N [A utomated message] The = Eosinophils #) system whic h generated this result tra nsmitted reference range : <=0.5. The reference r nan was not used to int erpret this result as normal/abnormal . [facility] HospitalYqbsusfLXXAEIDNGM5644-48-88 08:06:00 Test Item Value Reference Range Interpretation Comments Basophils # (test code 0.1 See_Comment N [Aut omated message] The = Basophils #) system which generated this result tra nsmitted reference range : <=0.2. The reference r nan was not used to int erpret this result as normal/abnormal . [facility] HospitalJqckyvnTACMVWRYMA3094-89-57 08:06:00 Test Item Value Reference Range Interpretation Comments Eosinophils (test code = 0.0 See_Comment N [A utomated message] The Eosinophils) system which ge nerated this result tra nsmitted reference range : <=4.0. The reference r nan was not used to int erpret this result as normal/abnormal . [facility] HospitalNalolroGEIAAACDUI9056-13-12 08:06:00 Test Item Value Reference Range Interpretation Comments Monocytes (test code = Monocytes) 2.4 2.0-12.0 N [facility] HospitalAswdhqkCITXQJGYSD4367-23-18 08:06:00 Test Item Value Reference Range Interpretation Comments Lymphocytes (test code = Lymphocytes) 7.8 20.0-40.0 L [facility] HospitalTeukemjKBVCDJJZOU8820-29-74 08:06:00 Test Item Value Reference Range Interpretation Comments Segs (test code = Segs) 89.1 45.0-75.0 H [place] 287812-10-20 08:06:00 Test Item Value Reference Range Interpretation Comments eGFR (test code = eGFR) 114 [facility] CenterVdxdgweMHNPFLDGW7300-34-65 08:06:00 Test Item Value Reference Range Interpretation Comments CO2 (test code = CO2) 27 24-32 N [facility] CenterLyzxzdyLMXPNIRPE7265-88-65 08:06:00 Test Item Value Reference Range Interpretation Comments Potassium Lvl (test code = Potassium 4.9 3.5-5.1 N Lvl) [facility] CenterAawnquqKXVOKKICZ8854-01-15 08:06:00 Test Item Value Reference Range Interpretation Comments Calcium Lvl (test code = Calcium Lvl) 8.9 8.5-10.5 N [facility] CenterQpaioiwWPVZTRLHC0448-31-52 08:06:00 Test Item Value Reference Range Interpretation Comments Chloride Lvl (test code = Chloride Lvl) 103 95-109 N [facility] CenterFjkwpbaREJXIINFR5534-32-19 08:06:00 Test Item Value Reference Range Interpretation Comments Glucose Lvl (test code = Glucose Lvl) 159 70-99 H [facility] CenterTlevbewFSAALDAFA2646-02-99 08:06:00 Test Item Value Reference Range Interpretation Comments BUN (test code = BUN) 11 7-22 N [facility] CenterVbgucbxBOTYQYLKQ1022-86-52 08:06:00 Test Item Value Reference Range Interpretation Comments Creatinine Lvl (test code = Creatinine 0.8 0.5-1.4 N Lvl) [facility] CenterEipsmjwNOHUCUUHF4852-14-27 08:06:00 Test Item Value Reference Range Interpretation Comments Sodium Lvl (test code = Sodium Lvl) 138 135-145 N [facility] CenterAxdstdmKSEMOHYNT5114-79-90 08:06:00 Test Item Value Reference Range Interpretation Comments AGAP (test code = AGAP) 12.9 10.0-20.0 N [facility] HospitalKhccuhvAAEAAYNQZD8768-90-72 08:06:00 Test Item Value Reference Range Interpretation Comments MPV (test code = MPV) 9.6 7.4-10.4 N [facility] HospitalLlfrblyYBCCFEWRWV5445-77-01 08:06:00 Test Item Value Reference Range Interpretation Comments WBC (test code = WBC) 8.4 3.7-10.4 N [facility] HospitalYyebnzeIBGLWVIQWA7834-47-66 08:06:00 Test Item Value Reference Range Interpretation Comments Platelet (test code = Platelet) 304 133-450 N [facility] HospitalYwafixgGUVHKLIZRN4427-75-21 08:06:00 Test Item Value Reference Range Interpretation Comments Hct (test code = Hct) 33.8 36.0-48.0 L [facility] HospitalDxrloxtMWJXUUVVXC3527-18-28 08:06:00 Test Item Value Reference Range Interpretation Comments Hgb (test code = Hgb) 10.9 12.0-16.0 L [facility] HospitalOpgfbzxYISTCELYGE6891-30-49 08:06:00 Test Item Value Reference Range Interpretation Comments RBC (test code = RBC) 4.28 4.20-5.40 N [facility] HospitalXsheqreXBSGLYHOIA9191-06-63 08:06:00 Test Item Value Reference Range Interpretation Comments RDW (test code = RDW) 15.5 11.5-14.5 H [facility] HospitalJisokxfRMSTXJUTUY7391-47-55 08:06:00 Test Item Value Reference Range Interpretation Comments MCHC (test code = MCHC) 32.2 32.0-36.0 N [facility] HospitalUkhnmutHSQPEYZDHI8584-52-55 08:06:00 Test Item Value Reference Range Interpretation Comments MCH (test code = MCH) 25.4 pg 27.0-31.0 L [facility] HospitalZemubrsWJOHEZXDAE4703-33-75 08:06:00 Test Item Value Reference Range Interpretation Comments MCV (test code = MCV) 79.0 81.0-99.0 L [facility] HospitalYnjgpumIEHBVBONLM3103-60-78 08:06:00 Test Item Value Reference Range Interpretation Comments Segs-Bands # (test code = Segs-Bands #) 7.5 1.5-8.1 N [facility] HospitalMxmamodWOBQWAXYKT2924-79-31 08:06:00 Test Item Value Reference Range Interpretation Comments Basophils (test code = 0.7 See_Comment N [Aut omated message] The Basophils) system which ge nerated this result tra nsmitted reference range : <=1.0. The reference r nan was not used to int erpret this result as normal/abnormal . [facility] HospitalKnjomwgTQVLNDWWDB8621-14-06 08:06:00 Test Item Value Reference Range Interpretation Comments Lymphocytes # (test code = Lymphocytes 0.7 1.0-5.5 L #) [facility] HospitalUqqzbogENOABCCGSJ9726-26-71 08:06:00 Test Item Value Reference Range Interpretation Comments Monocytes # (test code 0.2 See_Comment N [Aut omated message] The = Monocytes #) system which generated this result tra nsmitted reference range : <=0.8. The reference r nan was not used to int erpret this result as normal/abnormal . [facility] HospitalQjgxawbWKHGNAFBVU9001-36-12 08:06:00 Test Item Value Reference Range Interpretation Comments Eosinophils # (test code 0.0 See_Comment N [A utomated message] The = Eosinophils #) system whic h generated this result tra nsmitted reference range : <=0.5. The reference r nan was not used to int erpret this result as normal/abnormal . [facility] HospitalVgrnavhHJOEZGGPXK8183-61-82 08:06:00 Test Item Value Reference Range Interpretation Comments Basophils # (test code 0.1 See_Comment N [Aut omated message] The = Basophils #) system which generated this result tra nsmitted reference range : <=0.2. The reference r nan was not used to int erpret this result as normal/abnormal . [facility] HospitalIodeziyWFHAHDEUQO0915-46-22 08:06:00 Test Item Value Reference Range Interpretation Comments Eosinophils (test code = 0.0 See_Comment N [A utomated message] The Eosinophils) system which ge nerated this result tra nsmitted reference range : <=4.0. The reference r nan was not used to int erpret this result as normal/abnormal . [facility] HospitalPhtckdvYDBQIUAMPV2671-96-04 08:06:00 Test Item Value Reference Range Interpretation Comments Monocytes (test code = Monocytes) 2.4 2.0-12.0 N [facility] HospitalPneizphTAGFJRGDYM6790-21-17 08:06:00 Test Item Value Reference Range Interpretation Comments Lymphocytes (test code = Lymphocytes) 7.8 20.0-40.0 L [facility] HospitalSsbuiywXVNHMDSBNE3742-54-28 08:06:00 Test Item Value Reference Range Interpretation Comments Segs (test code = Segs) 89.1 45.0-75.0 [facility]JptogjqYSCIFVCEK9443-22-61 02:41:00 Test Item Value Reference Range Interpretation Comments Vanco Tr (test code = Vanco Tr) 7.1 [facility]HgstqfjGDVWAITDU8369-89-35 02:41:00 Test Item Value Reference Range Interpretation Comments Vanco Tr TND (test code = Vanco Tr TND) * [facility] CenterGzuwebpFPVMYPPPX7403-70-33 02:41:00 Test Item Value Reference Range Interpretation Comments Vanco Tr (test code = Vanco Tr) 7.1 [facility] CenterAxvcuvfUYDQIRSZJ9439-15-10 02:41:00 Test Item Value Reference Range Interpretation Comments Vanco Tr TND (test code = Vanco Tr TND) * [facility] CenterEypvuxdMBYDPNPWQ7169-97-50 02:41:00 Test Item Value Reference Range Interpretation Comments Vanco Tr (test code = Vanco Tr) 7.1 [facility] CenterMubuclaRKGOTQDFD4194-44-36 02:41:00 Test Item Value Reference Range Interpretation Comments Vanco Tr TND (test code = Vanco Tr TND) * [facility] CenterMwquuylUDPRDZXPF7790-40-17 02:41:00 Test Item Value Reference Range Interpretation Comments Vanco Tr (test code = Vanco Tr) 7.1 [facility] CenterHfsujbdYDWUUXZEN8818-75-30 02:41:00 Test Item Value Reference Range Interpretation Comments Vanco Tr TND (test code = Vanco Tr TND) * [facility] CenterRbhgpwbHlgalbpnbncp8271-49-45 08:15:00 Test Item Value Reference Range Interpretation Comments Culture: CSF w/Gram Stain (test code = Culture: CSF w/Gram Stain) [facility] CenterKdkiedrVunqmemrsysw1164-50-72 08:15:00 Test Item Value Reference Range Interpretation Comments Culture: CSF w/Gram Stain (test code = Culture: CSF w/Gram Stain) [facility] CenterPexgiodLusdoclcnxng4603-24-46 08:15:00 Test Item Value Reference Range Interpretation Comments Culture: CSF w/Gram Stain (test code = Culture: CSF w/Gram Stain) [facility] CenterPtixcccUhlqmsaxiepm1679-33-96 08:15:00 Test Item Value Reference Range Interpretation Comments Culture: CSF w/Gram Stain (test code = Culture: CSF w/Gram Stain) [facility] HospitalTisdjccSTLEFKLARE0385-78-24 00:00:00 Test Item Value Reference Range Interpretation Comments INR (test code = INR) 0.97 0.85-1.17 N [facility] HospitalCnfcmcgDNRNBYFKAA8022-69-53 00:00:00 Test Item Value Reference Range Interpretation Comments PTT (test code = PTT) 33.2 s 22.9-35.8 N [facility] HospitalHtikdwlMMJYBJTBGW7301-45-54 00:00:00 Test Item Value Reference Range Interpretation Comments PT (test code = PT) 13.1 s 12.0-14.7 N [facility] HospitalMmbjsxhKUWZDJIBVR2957-59-00 00:00:00 Test Item Value Reference Range Interpretation Comments WBC (test code = WBC) 6.5 3.7-10.4 N [facility] HospitalFpkkvohODWBQPETBQ7573-35-42 00:00:00 Test Item Value Reference Range Interpretation Comments RBC (test code = RBC) 4.68 4.20-5.40 N [facility] HospitalJbnwpmrCDNGQEYSPR3735-39-68 00:00:00 Test Item Value Reference Range Interpretation Comments Hct (test code = Hct) 36.6 36.0-48.0 N [facility] HospitalQplqqtcVYNHOEKOXD2065-58-23 00:00:00 Test Item Value Reference Range Interpretation Comments Hgb (test code = Hgb) 11.7 12.0-16.0 L [facility] HospitalAzykuviUUYMWWQNAX4290-11-59 00:00:00 Test Item Value Reference Range Interpretation Comments MCH (test code = MCH) 25.0 pg 27.0-31.0 L [facility] HospitalFsdhepfKKYDGSKQGM2123-41-80 00:00:00 Test Item Value Reference Range Interpretation Comments MCV (test code = MCV) 78.3 81.0-99.0 L [facility] HospitalYpizxseEJYPPXBCLP5058-89-04 00:00:00 Test Item Value Reference Range Interpretation Comments MCHC (test code = MCHC) 31.9 32.0-36.0 L [facility] HospitalPboghmoTWZRFYRSUK4949-36-61 00:00:00 Test Item Value Reference Range Interpretation Comments RDW (test code = RDW) 14.3 11.5-14.5 N [facility] HospitalNpjdslhIWGQNIBXAJ0952-65-75 00:00:00 Test Item Value Reference Range Interpretation Comments MPV (test code = MPV) 8.3 7.4-10.4 N [facility] HospitalXaytrolIAHLHYRDIM7560-15-62 00:00:00 Test Item Value Reference Range Interpretation Comments Platelet (test code = Platelet) 278 133-450 N [facility] HospitalGkgbfgvRBQAIJXHCE2453-36-30 00:00:00 Test Item Value Reference Range Interpretation Comments Segs-Bands # (test code = Segs-Bands #) 4.1 1.5-8.1 N [facility] HospitalTdrlvgaZORZRZPCRC5343-17-20 00:00:00 Test Item Value Reference Range Interpretation Comments Lymphocytes # (test code = Lymphocytes 1.4 1.0-5.5 N #) [facility] HospitalOafdjncABCWBQLNJL4684-55-42 00:00:00 Test Item Value Reference Range Interpretation Comments Monocytes (test code = Monocytes) 8.0 2.0-12.0 N [facility] HospitalYrwfgxaEHEIPFUJCJ2916-17-83 00:00:00 Test Item Value Reference Range Interpretation Comments Eosinophils (test code = 6.0 See_Comment H [A utomated message] The Eosinophils) system which ge nerated this result tra nsmitted reference range : <=4.0. The reference r nan was not used to int erpret this result as normal/abnormal . [facility] HospitalAojxlcrDKIJOXMPQL6555-77-11 00:00:00 Test Item Value Reference Range Interpretation Comments Lymphocytes (test code = Lymphocytes) 22.0 20.0-40.0 N [facility] HospitalGdtirbhITNWAIPEMT7271-45-67 00:00:00 Test Item Value Reference Range Interpretation Comments Segs (test code = Segs) 63.0 45.0-75.0 N [facility] HospitalAkvbkmdFPWGWHVGHL1085-22-04 00:00:00 Test Item Value Reference Range Interpretation Comments Bands (test code = 0.0 See_Comment N [Automat ed message] The Bands) system which ge nerated this result transmit toño reference range : <=11.0. The reference r nan was not used to interpr et this result as alistair l/abnormal. [facility] HospitalPqfrwvvRNEHOTOPKB7459-44-60 00:00:00 Test Item Value Reference Range Interpretation Comments Eosinophils # (test code 0.4 See_Comment N [A utomated message] The = Eosinophils #) system psychiatric h generated this result tra nsmitted reference range : <=0.5. The reference r nan was not used to int erpret this result as normal/abnormal . [facility] HospitalKoetzllZBWEEODBPH1490-35-82 00:00:00 Test Item Value Reference Range Interpretation Comments Monocytes # (test code 0.5 See_Comment N [Aut omated message] The = Monocytes #) system which generated this result tra nsmitted reference range : <=0.8. The reference r nan was not used to int erpret this result as normal/abnormal . [facility] HospitalUizvrncIXDUNKDYPQ2101-87-02 00:00:00 Test Item Value Reference Range Interpretation Comments Basophils # (test code 0.1 See_Comment N [Aut omated message] The = Basophils #) system which generated this result tra nsmitted reference range : <=0.2. The reference r nan was not used to int erpret this result as normal/abnormal . [facility] HospitalJstoxnnZLIDYZHUSN6892-33-53 00:00:00 Test Item Value Reference Range Interpretation Comments Anisocyte (test code = 1+ *ABN*(04/12/2012 A Anisocyte) 19:00:00) [facility] HospitalBpjdtdaSASRRXJGDO7799-02-51 00:00:00 Test Item Value Reference Range Interpretation Comments Microcyte (test code = 1+ *ABN*(04/12/2012 A Microcyte) 19:00:00) [facility] HospitalEpmgewjTCKROGSVXZ2373-78-97 00:00:00 Test Item Value Reference Range Interpretation Comments Plt Morph (test code = Normal (04/12/2012 N Plt Morph) 19:00:00) [facility] HospitalJqzztdyWLGNAHELXB5380-80-14 00:00:00 Test Item Value Reference Range Interpretation Comments Atypical Lymphs (test code = Atypical 0.0 N Lymphs) [facility] HospitalEtkyxsbCEGURJZWYM4803-08-87 00:00:00 Test Item Value Reference Range Interpretation Comments Basophils (test code = 1.0 See_Comment N [Aut omated message] The Basophils) system which ge nerated this result tra nsmitted reference range : <=1.0. The reference r nan was not used to int erpret this result as normal/abnormal . [facility] HospitalDdvrspxQMNIOGHXOK4524-88-63 00:00:00 Test Item Value Reference Range Interpretation Comments Hypochrom (test code = Slight (04/12/2012 N Hypochrom) 19:00:00) [facility] HospitalOlpengzLPHCZFJHLI3472-05-81 00:00:00 Test Item Value Reference Range Interpretation Comments Polychrom (test code = Slight (04/12/2012 N Polychrom) 19:00:00) [facility] HospitalTeemzpsZWSLCBDBEY1654-02-08 00:00:00 Test Item Value Reference Range Interpretation Comments INR (test code = INR) 0.97 0.85-1.17 N [facility] HospitalSrmcswhOBFGQCGHUR2806-71-09 00:00:00 Test Item Value Reference Range Interpretation Comments PTT (test code = PTT) 33.2 s 22.9-35.8 N [facility] HospitalKckyuvkENAAHLOUXA0921-01-82 00:00:00 Test Item Value Reference Range Interpretation Comments PT (test code = PT) 13.1 s 12.0-14.7 N [facility] HospitalEepekxrUXXHQAYBVB2742-31-49 00:00:00 Test Item Value Reference Range Interpretation Comments WBC (test code = WBC) 6.5 3.7-10.4 N [facility] HospitalArrymfhXBUEZUBVVP6879-60-85 00:00:00 Test Item Value Reference Range Interpretation Comments RBC (test code = RBC) 4.68 4.20-5.40 N [facility] HospitalDcvthovBJGPSOZBLW3429-64-94 00:00:00 Test Item Value Reference Range Interpretation Comments Hct (test code = Hct) 36.6 36.0-48.0 N [facility] HospitalKgkolphEHURPFMPRN6179-07-26 00:00:00 Test Item Value Reference Range Interpretation Comments Hgb (test code = Hgb) 11.7 12.0-16.0 L [facility] HospitalAdddonsXQTGNNYUNW3989-88-67 00:00:00 Test Item Value Reference Range Interpretation Comments MCH (test code = MCH) 25.0 pg 27.0-31.0 L [facility] HospitalQziolgtYWZWKMLULT9912-63-82 00:00:00 Test Item Value Reference Range Interpretation Comments MCV (test code = MCV) 78.3 81.0-99.0 L [facility] HospitalAfvgfexDLQOGGPTSV9338-97-77 00:00:00 Test Item Value Reference Range Interpretation Comments MCHC (test code = MCHC) 31.9 32.0-36.0 L [facility] HospitalPrajhlbDDHKCHKZYH0980-02-24 00:00:00 Test Item Value Reference Range Interpretation Comments RDW (test code = RDW) 14.3 11.5-14.5 N [facility] HospitalPwflpfvRGTSKYPFSW5430-44-80 00:00:00 Test Item Value Reference Range Interpretation Comments MPV (test code = MPV) 8.3 7.4-10.4 N [facility] HospitalVlnzmfmRSHWRCWANR3171-88-55 00:00:00 Test Item Value Reference Range Interpretation Comments Platelet (test code = Platelet) 278 133-450 N [facility] HospitalTkyvieiCZOSBYIHFZ3238-49-32 00:00:00 Test Item Value Reference Range Interpretation Comments Segs-Bands # (test code = Segs-Bands #) 4.1 1.5-8.1 N [facility] HospitalYamlkweXCLYNYSZNY6262-53-16 00:00:00 Test Item Value Reference Range Interpretation Comments Lymphocytes # (test code = Lymphocytes 1.4 1.0-5.5 N #) [facility] HospitalSkdddlrFUHEJUNYIL0158-70-92 00:00:00 Test Item Value Reference Range Interpretation Comments Monocytes (test code = Monocytes) 8.0 2.0-12.0 N [facility] HospitalUtnothqHPYELAMHWS0374-10-05 00:00:00 Test Item Value Reference Range Interpretation Comments Eosinophils (test code = 6.0 See_Comment H [A utomated message] The Eosinophils) system which ge nerated this result tra nsmitted reference range : <=4.0. The reference r nan was not used to int erpret this result as normal/abnormal . [facility] HospitalPvubyqkEIVZGZMWES2206-39-37 00:00:00 Test Item Value Reference Range Interpretation Comments Lymphocytes (test code = Lymphocytes) 22.0 20.0-40.0 N [facility] HospitalOkpeivrBOZPWBTBWX8096-94-57 00:00:00 Test Item Value Reference Range Interpretation Comments Segs (test code = Segs) 63.0 45.0-75.0 N [facility] HospitalIalucdzBHHNRUFPUP9751-96-30 00:00:00 Test Item Value Reference Range Interpretation Comments Bands (test code = 0.0 See_Comment N [Automat ed message] The Bands) system which ge nerated this result transmit toño reference range : <=11.0. The reference r nan was not used to interpr et this result as alistair l/abnormal. [facility] HospitalDnziwztASPFALCXFM5895-54-85 00:00:00 Test Item Value Reference Range Interpretation Comments Eosinophils # (test code 0.4 See_Comment N [A utomated message] The = Eosinophils #) system psychiatric h generated this result tra nsmitted reference range : <=0.5. The reference r nan was not used to int erpret this result as normal/abnormal . [facility] HospitalGkyyctiZYVKOHYWJO4674-96-08 00:00:00 Test Item Value Reference Range Interpretation Comments Monocytes # (test code 0.5 See_Comment N [Aut omated message] The = Monocytes #) system which generated this result tra nsmitted reference range : <=0.8. The reference r nan was not used to int erpret this result as normal/abnormal . [facility] HospitalJpncbsqIRXITZCIRU2449-21-12 00:00:00 Test Item Value Reference Range Interpretation Comments Basophils # (test code 0.1 See_Comment N [Aut omated message] The = Basophils #) system which generated this result tra nsmitted reference range : <=0.2. The reference r nan was not used to int erpret this result as normal/abnormal . [facility] HospitalZupwjtaJVVXJZOALZ8430-20-96 00:00:00 Test Item Value Reference Range Interpretation Comments Anisocyte (test code = 1+ *ABN*(04/12/2012 A Anisocyte) 19:00:00) [facility] HospitalPezpphcUUTDFALUSK7934-26-09 00:00:00 Test Item Value Reference Range Interpretation Comments Microcyte (test code = 1+ *ABN*(04/12/2012 A Microcyte) 19:00:00) [facility] HospitalMxktodqAOJEDVENDF3105-40-54 00:00:00 Test Item Value Reference Range Interpretation Comments Plt Morph (test code = Normal (04/12/2012 N Plt Morph) 19:00:00) [facility] HospitalFgadesyNCSDCOMKCP2140-17-93 00:00:00 Test Item Value Reference Range Interpretation Comments Atypical Lymphs (test code = Atypical 0.0 N Lymphs) [facility] HospitalDawhetjTRRUXKAARM4590-12-84 00:00:00 Test Item Value Reference Range Interpretation Comments Basophils (test code = 1.0 See_Comment N [Aut omated message] The Basophils) system which ge nerated this result tra nsmitted reference range : <=1.0. The reference r nan was not used to int erpret this result as normal/abnormal . [facility] HospitalSerliwiQEBXCRSGWZ5193-49-26 00:00:00 Test Item Value Reference Range Interpretation Comments Hypochrom (test code = Slight (04/12/2012 N Hypochrom) 19:00:00) [facility] HospitalZzbjyefNRLVSZZVZR9581-32-24 00:00:00 Test Item Value Reference Range Interpretation Comments Polychrom (test code = Slight (04/12/2012 N Polychrom) 19:00:00) [facility] HospitalVhmrmjsIWZJXOGGYA6254-41-08 00:00:00 Test Item Value Reference Range Interpretation Comments INR (test code = INR) 0.97 0.85-1.17 N [facility] HospitalKppcapkQYWSIPNDQB1721-48-89 00:00:00 Test Item Value Reference Range Interpretation Comments PTT (test code = PTT) 33.2 s 22.9-35.8 N [facility] HospitalOtnsruoERAOVDZBUV0565-73-87 00:00:00 Test Item Value Reference Range Interpretation Comments PT (test code = PT) 13.1 s 12.0-14.7 N [facility] HospitalAzxrefkCFSEJQUYWB3922-19-15 00:00:00 Test Item Value Reference Range Interpretation Comments WBC (test code = WBC) 6.5 3.7-10.4 N [facility] HospitalNlzgpnxFBANYRDDJI9390-77-02 00:00:00 Test Item Value Reference Range Interpretation Comments RBC (test code = RBC) 4.68 4.20-5.40 N [facility] HospitalLtjnrybNCCZFBHSUY7550-25-97 00:00:00 Test Item Value Reference Range Interpretation Comments Hct (test code = Hct) 36.6 36.0-48.0 N [facility] HospitalOjvvksdKIRLSJVUIA7830-62-24 00:00:00 Test Item Value Reference Range Interpretation Comments Hgb (test code = Hgb) 11.7 12.0-16.0 L [facility] HospitalXmfevktFBHAZDOXKO4952-62-12 00:00:00 Test Item Value Reference Range Interpretation Comments MCH (test code = MCH) 25.0 pg 27.0-31.0 L [facility] HospitalCijhitySBVJLPRQFM2410-70-67 00:00:00 Test Item Value Reference Range Interpretation Comments MCV (test code = MCV) 78.3 81.0-99.0 L [facility] HospitalOftvignSLLQCMEYXS1990-74-68 00:00:00 Test Item Value Reference Range Interpretation Comments MCHC (test code = MCHC) 31.9 32.0-36.0 L [facility] HospitalZfayosjEFZBMHYTXP7935-00-81 00:00:00 Test Item Value Reference Range Interpretation Comments RDW (test code = RDW) 14.3 11.5-14.5 N [facility] HospitalGkfcuybFCVBNNJYNU2380-10-03 00:00:00 Test Item Value Reference Range Interpretation Comments MPV (test code = MPV) 8.3 7.4-10.4 N [facility] HospitalUmxmbiwENZWRVLCXU4233-95-26 00:00:00 Test Item Value Reference Range Interpretation Comments Platelet (test code = Platelet) 278 133-450 N [facility] HospitalMjvtmgiAQDJUPFEUJ6148-19-82 00:00:00 Test Item Value Reference Range Interpretation Comments Segs-Bands # (test code = Segs-Bands #) 4.1 1.5-8.1 N [facility] HospitalZlptatiOMSFMVWYBN0679-71-58 00:00:00 Test Item Value Reference Range Interpretation Comments Lymphocytes # (test code = Lymphocytes 1.4 1.0-5.5 N #) [facility] HospitalMnlsdkyEWIKLGOIFD1212-17-81 00:00:00 Test Item Value Reference Range Interpretation Comments Monocytes (test code = Monocytes) 8.0 2.0-12.0 N [facility] HospitalGrpxoikCMYFNPHAHT3502-17-55 00:00:00 Test Item Value Reference Range Interpretation Comments Eosinophils (test code = 6.0 See_Comment H [A utomated message] The Eosinophils) system which ge nerated this result tra nsmitted reference range : <=4.0. The reference r nan was not used to int erpret this result as normal/abnormal . [facility] HospitalCjiowkpHXERXYLQJO9522-44-02 00:00:00 Test Item Value Reference Range Interpretation Comments Lymphocytes (test code = Lymphocytes) 22.0 20.0-40.0 N [facility] HospitalJulgxvjXTSQHSBSCO0994-68-80 00:00:00 Test Item Value Reference Range Interpretation Comments Segs (test code = Segs) 63.0 45.0-75.0 N [facility] HospitalSwsejtpIRZUXMMQOB1303-00-83 00:00:00 Test Item Value Reference Range Interpretation Comments Bands (test code = 0.0 See_Comment N [Automat ed message] The Bands) system which ge nerated this result transmit toño reference range : <=11.0. The reference r nan was not used to interpr et this result as alistair l/abnormal. [facility] HospitalHredtwiNSZZDTAIWP6876-13-22 00:00:00 Test Item Value Reference Range Interpretation Comments Eosinophils # (test code 0.4 See_Comment N [A utomated message] The = Eosinophils #) system psychiatric h generated this result tra nsmitted reference range : <=0.5. The reference r nan was not used to int erpret this result as normal/abnormal . [facility] HospitalLrkevyuUDSNUECFUI9696-83-88 00:00:00 Test Item Value Reference Range Interpretation Comments Monocytes # (test code 0.5 See_Comment N [Aut omated message] The = Monocytes #) system which generated this result tra nsmitted reference range : <=0.8. The reference r nan was not used to int erpret this result as normal/abnormal . [facility] HospitalPuakgkoDOFZWXLQQF7927-70-86 00:00:00 Test Item Value Reference Range Interpretation Comments Basophils # (test code 0.1 See_Comment N [Aut omated message] The = Basophils #) system which generated this result tra nsmitted reference range : <=0.2. The reference r nan was not used to int erpret this result as normal/abnormal . [facility] HospitalFswxjscFHSQIRQWZG6191-57-48 00:00:00 Test Item Value Reference Range Interpretation Comments Anisocyte (test code = 1+ *ABN*(04/12/2012 A Anisocyte) 19:00:00) [facility] HospitalAjotoonAIJRSADRIN4586-04-20 00:00:00 Test Item Value Reference Range Interpretation Comments Microcyte (test code = 1+ *ABN*(04/12/2012 A Microcyte) 19:00:00) [facility] HospitalBrmxxzyNQLZODJQSC0908-42-12 00:00:00 Test Item Value Reference Range Interpretation Comments Plt Morph (test code = Normal (04/12/2012 N Plt Morph) 19:00:00) [facility] HospitalJtcrotuYDEEQGBWDQ5435-49-17 00:00:00 Test Item Value Reference Range Interpretation Comments Atypical Lymphs (test code = Atypical 0.0 N Lymphs) [facility] HospitalWiuoexlYKNBSBGQMR8127-59-90 00:00:00 Test Item Value Reference Range Interpretation Comments Basophils (test code = 1.0 See_Comment N [Aut omated message] The Basophils) system which ge nerated this result tra nsmitted reference range : <=1.0. The reference r nan was not used to int erpret this result as normal/abnormal . [facility] HospitalNdjvgdnGUVNGZWENO3225-67-61 00:00:00 Test Item Value Reference Range Interpretation Comments Hypochrom (test code = Slight (04/12/2012 N Hypochrom) 19:00:00) [facility] HospitalDuoluyaXIKOPOWANV9345-37-82 00:00:00 Test Item Value Reference Range Interpretation Comments Polychrom (test code = Slight (04/12/2012 N Polychrom) 19:00:00) [facility] HospitalAcnfecsEAUWZJBTTD2023-15-33 00:00:00 Test Item Value Reference Range Interpretation Comments INR (test code = INR) 0.97 0.85-1.17 N [facility] HospitalLxlodkcQCIANEVBAE9915-88-32 00:00:00 Test Item Value Reference Range Interpretation Comments PTT (test code = PTT) 33.2 s 22.9-35.8 N [facility] HospitalPkhxicpGVYHXGYBXC2249-10-10 00:00:00 Test Item Value Reference Range Interpretation Comments PT (test code = PT) 13.1 s 12.0-14.7 N [facility] HospitalJnpitxaXUPISKFQGK6122-88-94 00:00:00 Test Item Value Reference Range Interpretation Comments WBC (test code = WBC) 6.5 3.7-10.4 N [facility] HospitalMbfaeeaBNBWTSEJQC3437-10-59 00:00:00 Test Item Value Reference Range Interpretation Comments RBC (test code = RBC) 4.68 4.20-5.40 N [facility] HospitalOzrizqdKCQRDBXNFF6740-55-14 00:00:00 Test Item Value Reference Range Interpretation Comments Hct (test code = Hct) 36.6 36.0-48.0 N [facility] HospitalQtlzjgqCNDTZRLCXR1228-50-49 00:00:00 Test Item Value Reference Range Interpretation Comments Hgb (test code = Hgb) 11.7 12.0-16.0 L [facility] HospitalQuxusyxTLHRWWWJEX7709-80-25 00:00:00 Test Item Value Reference Range Interpretation Comments MCH (test code = MCH) 25.0 pg 27.0-31.0 L [facility] HospitalOodyjuxULQPYFHWXO2491-78-32 00:00:00 Test Item Value Reference Range Interpretation Comments MCV (test code = MCV) 78.3 81.0-99.0 L [facility] HospitalKmpiidfUJGNLJYEDO7877-27-66 00:00:00 Test Item Value Reference Range Interpretation Comments MCHC (test code = MCHC) 31.9 32.0-36.0 L [facility] HospitalVcayycsCRUDYEJJHV2743-40-41 00:00:00 Test Item Value Reference Range Interpretation Comments RDW (test code = RDW) 14.3 11.5-14.5 N [facility] HospitalAgtthmoGPCCJACNOL9764-29-84 00:00:00 Test Item Value Reference Range Interpretation Comments MPV (test code = MPV) 8.3 7.4-10.4 N [facility] HospitalOgkqwmhYSCHRXVAVZ1469-40-53 00:00:00 Test Item Value Reference Range Interpretation Comments Platelet (test code = Platelet) 278 133-450 N [facility] HospitalOvornxhFNGDCBJUCW1320-15-21 00:00:00 Test Item Value Reference Range Interpretation Comments Segs-Bands # (test code = Segs-Bands #) 4.1 1.5-8.1 N [facility] HospitalCmqqepfMURMIUVJLP5841-87-82 00:00:00 Test Item Value Reference Range Interpretation Comments Lymphocytes # (test code = Lymphocytes 1.4 1.0-5.5 N #) [facility] HospitalEfwsavvQMKRSMPRVD3224-42-47 00:00:00 Test Item Value Reference Range Interpretation Comments Monocytes (test code = Monocytes) 8.0 2.0-12.0 N [facility] HospitalPlysbrvIXUSOPWPGD5150-95-68 00:00:00 Test Item Value Reference Range Interpretation Comments Eosinophils (test code = 6.0 See_Comment H [A utomated message] The Eosinophils) system which ge nerated this result tra nsmitted reference range : <=4.0. The reference r nan was not used to int erpret this result as normal/abnormal . [facility] HospitalGlhueepYKASXZFTFP1572-98-62 00:00:00 Test Item Value Reference Range Interpretation Comments Lymphocytes (test code = Lymphocytes) 22.0 20.0-40.0 N [facility] HospitalWhpoihpFJPZAQADCF7979-63-56 00:00:00 Test Item Value Reference Range Interpretation Comments Segs (test code = Segs) 63.0 45.0-75.0 N [facility] HospitalZddfehuFEULGMZRZH8671-63-12 00:00:00 Test Item Value Reference Range Interpretation Comments Bands (test code = 0.0 See_Comment N [Automat ed message] The Bands) system which ge nerated this result transmit toño reference range : <=11.0. The reference r nan was not used to interpr et this result as alistair l/abnormal. [facility] HospitalFjjguqqPTZUATAFHS9365-86-82 00:00:00 Test Item Value Reference Range Interpretation Comments Eosinophils # (test code 0.4 See_Comment N [A utomated message] The = Eosinophils #) system psychiatric h generated this result tra nsmitted reference range : <=0.5. The reference r nan was not used to int erpret this result as normal/abnormal . [facility] HospitalNbkuactPQQJTEUKHI4766-06-82 00:00:00 Test Item Value Reference Range Interpretation Comments Monocytes # (test code 0.5 See_Comment N [Aut omated message] The = Monocytes #) system which generated this result tra nsmitted reference range : <=0.8. The reference r nan was not used to int erpret this result as normal/abnormal . [facility] HospitalDbwjfwiDVLEUURGHH7999-62-11 00:00:00 Test Item Value Reference Range Interpretation Comments Basophils # (test code 0.1 See_Comment N [Aut omated message] The = Basophils #) system which generated this result tra nsmitted reference range : <=0.2. The reference r nan was not used to int erpret this result as normal/abnormal . [facility] HospitalShoqgevDIBQZUVYQZ9294-19-81 00:00:00 Test Item Value Reference Range Interpretation Comments Anisocyte (test code = 1+ *ABN*(04/12/2012 A Anisocyte) 19:00:00) [facility] HospitalBvojkqfTEUZEEJJWG5550-25-26 00:00:00 Test Item Value Reference Range Interpretation Comments Microcyte (test code = 1+ *ABN*(04/12/2012 A Microcyte) 19:00:00) [facility] HospitalEjdvbauTIDQNAYOXZ9587-10-10 00:00:00 Test Item Value Reference Range Interpretation Comments Plt Morph (test code = Normal (04/12/2012 N Plt Morph) 19:00:00) [facility] HospitalTgaxmneBIGRQRSBUG6055-57-73 00:00:00 Test Item Value Reference Range Interpretation Comments Atypical Lymphs (test code = Atypical 0.0 N Lymphs) [facility] HospitalRxtakcoLYDVZGFCEZ1826-05-22 00:00:00 Test Item Value Reference Range Interpretation Comments Basophils (test code = 1.0 See_Comment N [Aut omated message] The Basophils) system which ge nerated this result tra nsmitted reference range : <=1.0. The reference r nan was not used to int erpret this result as normal/abnormal . [facility] HospitalIkegjuaBMBYTAEPSA1724-92-66 00:00:00 Test Item Value Reference Range Interpretation Comments Hypochrom (test code = Slight (04/12/2012 N Hypochrom) 19:00:00) [facility] HospitalJxppxnlUADZEPEXCC4536-03-60 00:00:00 Test Item Value Reference Range Interpretation Comments Polychrom (test code = Slight (04/12/2012 N Polychrom) 19:00:00) [facility]MpdupglQJTIAQNML7057-92-97 18:50:00 Test Item Value Reference Range Interpretation Comments BUN (test code = BUN) 10 7-22 N [facility] CenterEnycnxlJTCIJDEPB8512-53-66 18:50:00 Test Item Value Reference Range Interpretation Comments Creatinine Lvl (test code = Creatinine 1.0 0.5-1.4 N Lvl) [facility] CenterDfsgjkvELWBAAZXW8373-41-66 18:50:00 Test Item Value Reference Range Interpretation Comments Glucose Lvl (test code = Glucose Lvl) 113 70-99 H [facility] CenterIghkzmhEEHDEXEWH0808-27-56 18:50:00 Test Item Value Reference Range Interpretation Comments CO2 (test code = CO2) 30 24-32 N [facility] CenterRynmpcbGBHPNNSTN3667-04-68 18:50:00 Test Item Value Reference Range Interpretation Comments Calcium Lvl (test code = Calcium Lvl) 9.1 8.5-10.5 N [facility] HospitalHjuypadSKTEJNSSDI9639-96-93 18:50:00 Test Item Value Reference Range Interpretation Comments INR (test code = INR) 0.97 0.85-1.17 N [facility] HospitalAwmavlkXWDSEWPTMA6957-20-58 18:50:00 Test Item Value Reference Range Interpretation Comments PT (test code = PT) 13.1 s 12.0-14.7 N [facility] HospitalDfyrxsrRLBLMOOSIR3828-89-76 18:50:00 Test Item Value Reference Range Interpretation Comments PTT (test code = PTT) 33.1 s 22.9-35.8 N [facility] HospitalLyofsitWLADCROLEJ4031-65-85 18:50:00 Test Item Value Reference Range Interpretation Comments Hgb (test code = Hgb) 11.8 12.0-16.0 L [facility] HospitalIkohjiiXEXDDOAHAX6483-59-29 18:50:00 Test Item Value Reference Range Interpretation Comments Hct (test code = Hct) 36.4 36.0-48.0 N [facility] HospitalYbuxiqbKXYHIXXOYV6775-31-03 18:50:00 Test Item Value Reference Range Interpretation Comments RBC (test code = RBC) 4.70 4.20-5.40 N [facility] HospitalRvpcncaQTUFYPCYBS8886-30-72 18:50:00 Test Item Value Reference Range Interpretation Comments WBC (test code = WBC) 5.1 3.7-10.4 N [facility] HospitalTkdfazjUCKXRUPHYW6867-01-83 18:50:00 Test Item Value Reference Range Interpretation Comments Platelet (test code = Platelet) 301 133-450 N [facility] HospitalOnntrjaEEYODURSZI0236-48-29 18:50:00 Test Item Value Reference Range Interpretation Comments MPV (test code = MPV) 8.5 7.4-10.4 N [facility] HospitalXpjgbqeQNVHTLBEZB4859-10-74 18:50:00 Test Item Value Reference Range Interpretation Comments MCHC (test code = MCHC) 32.5 32.0-36.0 N [facility] HospitalFaufxhzTFIPDSNUTR3585-24-99 18:50:00 Test Item Value Reference Range Interpretation Comments MCH (test code = MCH) 25.1 pg 27.0-31.0 L [facility] HospitalTskeijnMJFCIDZNAK4250-85-87 18:50:00 Test Item Value Reference Range Interpretation Comments RDW (test code = RDW) 14.4 11.5-14.5 N [facility] HospitalHhtntwwDPOVXZAHZH5611-02-14 18:50:00 Test Item Value Reference Range Interpretation Comments MCV (test code = MCV) 77.4 81.0-99.0 L [facility] HospitalDxiwudgDLZBCTAIXK1990-52-77 18:50:00 Test Item Value Reference Range Interpretation Comments Basophils # (test code 0.0 See_Comment N [Aut omated message] The = Basophils #) system which generated this result tra nsmitted reference range : <=0.2. The reference r nan was not used to int erpret this result as normal/abnormal . [facility] HospitalYumbdlkJLNCCPOWVS8457-91-21 18:50:00 Test Item Value Reference Range Interpretation Comments Elliptocyte (test code = Slight A Elliptocyte) *ABN*(04/05/2012 13:50:00) [facility] HospitalYlbipiuUUIKXRHABR4189-94-68 18:50:00 Test Item Value Reference Range Interpretation Comments Microcyte (test code = 1+ *ABN*(04/05/2012 A Microcyte) 13:50:00) [facility] HospitalTqcsukrWQTEFFATNV3187-33-63 18:50:00 Test Item Value Reference Range Interpretation Comments Monocytes # (test code 0.2 See_Comment N [Aut omated message] The = Monocytes #) system which generated this result tra nsmitted reference range : <=0.8. The reference r nan was not used to int erpret this result as normal/abnormal . [facility] HospitalXvltwtvDZODPWYMWZ3366-37-83 18:50:00 Test Item Value Reference Range Interpretation Comments Eosinophils # (test code 0.3 See_Comment N [A utomated message] The = Eosinophils #) system whic h generated this result tra nsmitted reference range : <=0.5. The reference r nan was not used to int erpret this result as normal/abnormal . [facility] HospitalHmlomlgSJYLGCGKJW7018-46-05 18:50:00 Test Item Value Reference Range Interpretation Comments Eosinophils (test code = 5.6 See_Comment H [A utomated message] The Eosinophils) system which ge nerated this result tra nsmitted reference range : <=4.0. The reference r nan was not used to int erpret this result as normal/abnormal . [facility] HospitalIzpiqdyJKRCORGKJF4352-29-69 18:50:00 Test Item Value Reference Range Interpretation Comments Plt Morph (test code = Normal (04/05/2012 N Plt Morph) 13:50:00) [facility] HospitalPpdrcleTZDYGITFCY0050-49-52 18:50:00 Test Item Value Reference Range Interpretation Comments Basophils (test code = 0.7 See_Comment N [Aut omated message] The Basophils) system which ge nerated this result tra nsmitted reference range : <=1.0. The reference r nan was not used to int erpret this result as normal/abnormal . [facility] HospitalAxamwjbZDHDHHGKEA4405-61-33 18:50:00 Test Item Value Reference Range Interpretation Comments Segs-Bands # (test code = Segs-Bands #) 3.7 1.5-8.1 N [facility] HospitalHbrrcsbYFTMDXRVYA7362-18-54 18:50:00 Test Item Value Reference Range Interpretation Comments Lymphocytes # (test code = Lymphocytes 0.9 1.0-5.5 L #) [facility] HospitalAbpzunlLWEMCEFEIZ4208-61-52 18:50:00 Test Item Value Reference Range Interpretation Comments Segs (test code = Segs) 72.7 45.0-75.0 N [facility] HospitalFldpekeVPGTPHTYJL7789-01-80 18:50:00 Test Item Value Reference Range Interpretation Comments Lymphocytes (test code = Lymphocytes) 17.4 20.0-40.0 L [facility] HospitalYwqifjkJSHEZUKSRF6296-39-47 18:50:00 Test Item Value Reference Range Interpretation Comments Monocytes (test code = Monocytes) 3.6 2.0-12.0 N [facility] CenterMsssbxuAQJAMFLZM1246-80-85 18:50:00 Test Item Value Reference Range Interpretation Comments AGAP (test code = AGAP) 11.3 10.0-20.0 N [facility] CenterApjwbtwYEXVMQHLY7448-01-89 18:50:00 Test Item Value Reference Range Interpretation Comments eGFR (test code = eGFR) 87 [facility] CenterErsfxheQVSPJOSRP1313-60-04 18:50:00 Test Item Value Reference Range Interpretation Comments Chloride Lvl (test code = Chloride Lvl) 102 95-109 N [facility] CenterFycubmrVURLRQDPU9174-72-90 18:50:00 Test Item Value Reference Range Interpretation Comments Sodium Lvl (test code = Sodium Lvl) 139 135-145 N [facility] CenterXtvfwekHVUJBQOZF4137-14-44 18:50:00 Test Item Value Reference Range Interpretation Comments Potassium Lvl (test code = Potassium 4.3 3.5-5.1 N Lvl) [facility] CenterWstwdqpNKLIMSAVN6523-96-91 18:50:00 Test Item Value Reference Range Interpretation Comments BUN (test code = BUN) 10 7-22 N [facility] CenterXxtwzthPCRZWEQTA5314-68-04 18:50:00 Test Item Value Reference Range Interpretation Comments Creatinine Lvl (test code = Creatinine 1.0 0.5-1.4 N Lvl) [facility] CenterIskvmkgNTPBYHPFX7252-02-26 18:50:00 Test Item Value Reference Range Interpretation Comments Glucose Lvl (test code = Glucose Lvl) 113 70-99 H [facility] CenterYnoqpbaMYCMOEFDI6573-21-62 18:50:00 Test Item Value Reference Range Interpretation Comments CO2 (test code = CO2) 30 24-32 N [facility] CenterEgrwenbOGIVDPVOX4333-08-02 18:50:00 Test Item Value Reference Range Interpretation Comments Calcium Lvl (test code = Calcium Lvl) 9.1 8.5-10.5 N [facility] HospitalYzdqyzbJWOGONHMCI4949-32-76 18:50:00 Test Item Value Reference Range Interpretation Comments INR (test code = INR) 0.97 0.85-1.17 N [facility] HospitalRuehqhaQXSVHXQSAW8048-80-46 18:50:00 Test Item Value Reference Range Interpretation Comments PT (test code = PT) 13.1 s 12.0-14.7 N [facility] HospitalMpmbomzWJWAETVCDR7086-00-42 18:50:00 Test Item Value Reference Range Interpretation Comments PTT (test code = PTT) 33.1 s 22.9-35.8 N [facility] HospitalXvkfkuxICBOHXFVQZ1290-82-53 18:50:00 Test Item Value Reference Range Interpretation Comments Hgb (test code = Hgb) 11.8 12.0-16.0 L [facility] HospitalKvmeiwtADJJOXEBAE2066-62-99 18:50:00 Test Item Value Reference Range Interpretation Comments Hct (test code = Hct) 36.4 36.0-48.0 N [facility] HospitalDbibimmEUHYLXBVAY0732-28-59 18:50:00 Test Item Value Reference Range Interpretation Comments RBC (test code = RBC) 4.70 4.20-5.40 N [facility] HospitalVeudmncYAWRIJZPAA6088-81-95 18:50:00 Test Item Value Reference Range Interpretation Comments WBC (test code = WBC) 5.1 3.7-10.4 N [facility] HospitalNfqeqyoGMYQBMSEDM3727-65-49 18:50:00 Test Item Value Reference Range Interpretation Comments Platelet (test code = Platelet) 301 133-450 N [facility] HospitalIgbrzqqWBNZLEKBUH7103-52-61 18:50:00 Test Item Value Reference Range Interpretation Comments MPV (test code = MPV) 8.5 7.4-10.4 N [facility] HospitalIgzzksyPHAIILJDUK7513-92-07 18:50:00 Test Item Value Reference Range Interpretation Comments MCHC (test code = MCHC) 32.5 32.0-36.0 N [facility] HospitalToennesAOAGCCLPEF9961-69-33 18:50:00 Test Item Value Reference Range Interpretation Comments MCH (test code = MCH) 25.1 pg 27.0-31.0 L [facility] HospitalVbgraeoIWUXELYGJZ7207-81-77 18:50:00 Test Item Value Reference Range Interpretation Comments RDW (test code = RDW) 14.4 11.5-14.5 N [facility] HospitalHwdaywqEQUWCPHLSP6178-43-42 18:50:00 Test Item Value Reference Range Interpretation Comments MCV (test code = MCV) 77.4 81.0-99.0 L [facility] HospitalGrcxeevXZHSPYJFPX6389-40-40 18:50:00 Test Item Value Reference Range Interpretation Comments Basophils # (test code 0.0 See_Comment N [Aut omated message] The = Basophils #) system which generated this result tra nsmitted reference range : <=0.2. The reference r nan was not used to int erpret this result as normal/abnormal . [facility] HospitalQjmdmkaFRWETVUJSU9336-19-13 18:50:00 Test Item Value Reference Range Interpretation Comments Elliptocyte (test code = Slight A Elliptocyte) *ABN*(04/05/2012 13:50:00) [facility] HospitalAayokdpLLHCRMXHKT7788-47-16 18:50:00 Test Item Value Reference Range Interpretation Comments Microcyte (test code = 1+ *ABN*(04/05/2012 A Microcyte) 13:50:00) [facility] HospitalEpdvizzHRXKFCROZY5887-34-56 18:50:00 Test Item Value Reference Range Interpretation Comments Monocytes # (test code 0.2 See_Comment N [Aut omated message] The = Monocytes #) system which generated this result tra nsmitted reference range : <=0.8. The reference r nan was not used to int erpret this result as normal/abnormal . [facility] HospitalLjuaqlrBIBWKXXRXE5168-12-70 18:50:00 Test Item Value Reference Range Interpretation Comments Eosinophils # (test code 0.3 See_Comment N [A utomated message] The = Eosinophils #) system whic h generated this result tra nsmitted reference range : <=0.5. The reference r nan was not used to int erpret this result as normal/abnormal . [facility] HospitalKyeqwosOTAFQSYQTB4444-15-10 18:50:00 Test Item Value Reference Range Interpretation Comments Eosinophils (test code = 5.6 See_Comment H [A utomated message] The Eosinophils) system which ge nerated this result tra nsmitted reference range : <=4.0. The reference r nan was not used to int erpret this result as normal/abnormal . [facility] HospitalJazicziTXISYFGWGX6339-10-23 18:50:00 Test Item Value Reference Range Interpretation Comments Plt Morph (test code = Normal (04/05/2012 N Plt Morph) 13:50:00) [facility] HospitalOgydcxtBCMOPCCADY8117-01-02 18:50:00 Test Item Value Reference Range Interpretation Comments Basophils (test code = 0.7 See_Comment N [Aut omated message] The Basophils) system which ge nerated this result tra nsmitted reference range : <=1.0. The reference r nan was not used to int erpret this result as normal/abnormal . [facility] HospitalJeoghxiNFFTUHFVDT5171-09-43 18:50:00 Test Item Value Reference Range Interpretation Comments Segs-Bands # (test code = Segs-Bands #) 3.7 1.5-8.1 N [facility] HospitalBdfepdkKPDYVMCEFM1464-70-06 18:50:00 Test Item Value Reference Range Interpretation Comments Lymphocytes # (test code = Lymphocytes 0.9 1.0-5.5 L #) [facility] HospitalVgebdykLDWBTUUTLQ3962-21-84 18:50:00 Test Item Value Reference Range Interpretation Comments Segs (test code = Segs) 72.7 45.0-75.0 N [facility] HospitalUpwvlcxALWEMSPNWP2071-05-31 18:50:00 Test Item Value Reference Range Interpretation Comments Lymphocytes (test code = Lymphocytes) 17.4 20.0-40.0 L [facility] HospitalWotuduvWUDXQLPRFX1482-20-69 18:50:00 Test Item Value Reference Range Interpretation Comments Monocytes (test code = Monocytes) 3.6 2.0-12.0 N [facility] CenterHggmbgtVKUKKMLMW9223-17-85 18:50:00 Test Item Value Reference Range Interpretation Comments AGAP (test code = AGAP) 11.3 10.0-20.0 N [facility] CenterXezdbchURZWHSTIL0062-57-04 18:50:00 Test Item Value Reference Range Interpretation Comments eGFR (test code = eGFR) 87 [facility] CenterJtnprfyMUPOPYUMS7009-41-39 18:50:00 Test Item Value Reference Range Interpretation Comments Chloride Lvl (test code = Chloride Lvl) 102 95-109 N [facility] CenterYclumlaNMRCKNZPZ9439-55-96 18:50:00 Test Item Value Reference Range Interpretation Comments Sodium Lvl (test code = Sodium Lvl) 139 135-145 N [facility] CenterYbknyatCDLCQQSSA1834-14-91 18:50:00 Test Item Value Reference Range Interpretation Comments Potassium Lvl (test code = Potassium 4.3 3.5-5.1 N Lvl) [facility] CenterFtsakquQJNUWJPXM4019-05-68 18:50:00 Test Item Value Reference Range Interpretation Comments BUN (test code = BUN) 10 7-22 N [facility] CenterTbzgxjsJYATFXYBL6628-57-98 18:50:00 Test Item Value Reference Range Interpretation Comments Creatinine Lvl (test code = Creatinine 1.0 0.5-1.4 N Lvl) [facility] CenterEnvwgnwJUOGHJUKW4911-53-70 18:50:00 Test Item Value Reference Range Interpretation Comments Glucose Lvl (test code = Glucose Lvl) 113 70-99 H [facility] CenterZxhreocUOAYHFGDR6196-09-30 18:50:00 Test Item Value Reference Range Interpretation Comments CO2 (test code = CO2) 30 24-32 N [facility] CenterPxgxqrtAOVSZHMVD4824-62-55 18:50:00 Test Item Value Reference Range Interpretation Comments Calcium Lvl (test code = Calcium Lvl) 9.1 8.5-10.5 N [facility] HospitalNezwhdnGWDNPPOOJK8255-65-33 18:50:00 Test Item Value Reference Range Interpretation Comments INR (test code = INR) 0.97 0.85-1.17 N [facility] HospitalYydsdmpODUGTDZJYZ7022-19-35 18:50:00 Test Item Value Reference Range Interpretation Comments PT (test code = PT) 13.1 s 12.0-14.7 N [facility] HospitalObnueepGUPZUZFOKK4142-96-47 18:50:00 Test Item Value Reference Range Interpretation Comments PTT (test code = PTT) 33.1 s 22.9-35.8 N [facility] HospitalIhsjvdrATQIWFTBEL5852-30-34 18:50:00 Test Item Value Reference Range Interpretation Comments Hgb (test code = Hgb) 11.8 12.0-16.0 L [facility] HospitalBqhtfnfEFBHJWTCPA1736-47-47 18:50:00 Test Item Value Reference Range Interpretation Comments Hct (test code = Hct) 36.4 36.0-48.0 N [facility] HospitalGfmnflmSEIRLVHTVV1744-35-30 18:50:00 Test Item Value Reference Range Interpretation Comments RBC (test code = RBC) 4.70 4.20-5.40 N [facility] HospitalUtobzrdZMEAHVZBHR4557-68-69 18:50:00 Test Item Value Reference Range Interpretation Comments WBC (test code = WBC) 5.1 3.7-10.4 N [facility] HospitalZzfzzgiDZUDJMDNUO3704-50-69 18:50:00 Test Item Value Reference Range Interpretation Comments Platelet (test code = Platelet) 301 133-450 N [facility] HospitalCsvpwirAOADTXJBQD1222-65-06 18:50:00 Test Item Value Reference Range Interpretation Comments MPV (test code = MPV) 8.5 7.4-10.4 N [facility] HospitalOgnaxuxSQMQYODVVD5646-10-52 18:50:00 Test Item Value Reference Range Interpretation Comments MCHC (test code = MCHC) 32.5 32.0-36.0 N [facility] HospitalYdqzsatYEFTJANJOK4306-08-44 18:50:00 Test Item Value Reference Range Interpretation Comments MCH (test code = MCH) 25.1 pg 27.0-31.0 L [facility] HospitalUiephppDCCMJUGZBM0533-96-10 18:50:00 Test Item Value Reference Range Interpretation Comments RDW (test code = RDW) 14.4 11.5-14.5 N [facility] HospitalQjlvoltNCYOWEIOXR5784-50-94 18:50:00 Test Item Value Reference Range Interpretation Comments MCV (test code = MCV) 77.4 81.0-99.0 L [facility] HospitalDncpkkkTVXXUEXLMY6301-82-05 18:50:00 Test Item Value Reference Range Interpretation Comments Basophils # (test code 0.0 See_Comment N [Aut omated message] The = Basophils #) system which generated this result tra nsmitted reference range : <=0.2. The reference r nan was not used to int erpret this result as normal/abnormal . [facility] HospitalSookmijJKAXETIZCR4572-65-17 18:50:00 Test Item Value Reference Range Interpretation Comments Elliptocyte (test code = Slight A Elliptocyte) *ABN*(04/05/2012 13:50:00) [facility] HospitalTxtozabSKASTRVURB5647-54-05 18:50:00 Test Item Value Reference Range Interpretation Comments Microcyte (test code = 1+ *ABN*(04/05/2012 A Microcyte) 13:50:00) [facility] HospitalCzxjoweHOWBDTAGZN4510-49-32 18:50:00 Test Item Value Reference Range Interpretation Comments Monocytes # (test code 0.2 See_Comment N [Aut omated message] The = Monocytes #) system which generated this result tra nsmitted reference range : <=0.8. The reference r nan was not used to int erpret this result as normal/abnormal . [facility] HospitalLhjuhogIUFBIIUDFU2777-17-51 18:50:00 Test Item Value Reference Range Interpretation Comments Eosinophils # (test code 0.3 See_Comment N [A utomated message] The = Eosinophils #) system whic h generated this result tra nsmitted reference range : <=0.5. The reference r nan was not used to int erpret this result as normal/abnormal . [facility] HospitalLdvlsocCHYMMRGGPL6524-11-09 18:50:00 Test Item Value Reference Range Interpretation Comments Eosinophils (test code = 5.6 See_Comment H [A utomated message] The Eosinophils) system which ge nerated this result tra nsmitted reference range : <=4.0. The reference r nan was not used to int erpret this result as normal/abnormal . [facility] HospitalHcmmfpjNDVUGYPSFG9069-42-76 18:50:00 Test Item Value Reference Range Interpretation Comments Plt Morph (test code = Normal (04/05/2012 N Plt Morph) 13:50:00) [facility] HospitalSppegbqFEXUEBZZKM0326-27-23 18:50:00 Test Item Value Reference Range Interpretation Comments Basophils (test code = 0.7 See_Comment N [Aut omated message] The Basophils) system which ge nerated this result tra nsmitted reference range : <=1.0. The reference r nan was not used to int erpret this result as normal/abnormal . [facility] HospitalPlwrdwdEMUTVPHSJX1371-73-93 18:50:00 Test Item Value Reference Range Interpretation Comments Segs-Bands # (test code = Segs-Bands #) 3.7 1.5-8.1 N [facility] HospitalDuadzfdMVZUQKDJRH8085-27-05 18:50:00 Test Item Value Reference Range Interpretation Comments Lymphocytes # (test code = Lymphocytes 0.9 1.0-5.5 L #) [facility] HospitalZxpztuiRJNRRSTHJL7317-50-21 18:50:00 Test Item Value Reference Range Interpretation Comments Segs (test code = Segs) 72.7 45.0-75.0 N [facility] HospitalZpcorooJSYGTDUJWX0043-35-37 18:50:00 Test Item Value Reference Range Interpretation Comments Lymphocytes (test code = Lymphocytes) 17.4 20.0-40.0 L [facility] HospitalDskpsgpVSDRFEDQAF6257-78-33 18:50:00 Test Item Value Reference Range Interpretation Comments Monocytes (test code = Monocytes) 3.6 2.0-12.0 N [facility]DqyfsatPVYLGXARD9883-39-97 18:50:00 Test Item Value Reference Range Interpretation Comments AGAP (test code = AGAP) 11.3 10.0-20.0 N [facility] CenterRelchvqODYJFCGOK7137-90-31 18:50:00 Test Item Value Reference Range Interpretation Comments eGFR (test code = eGFR) 87 [facility] CenterFqkhdrrPHVFPOLIC8030-36-98 18:50:00 Test Item Value Reference Range Interpretation Comments Chloride Lvl (test code = Chloride Lvl) 102 95-109 N [facility] CenterOwbppjnLAYDNIVIQ0368-59-69 18:50:00 Test Item Value Reference Range Interpretation Comments Sodium Lvl (test code = Sodium Lvl) 139 135-145 N [facility] CenterFusknqiNFUBEIPIR2774-01-46 18:50:00 Test Item Value Reference Range Interpretation Comments Potassium Lvl (test code = Potassium 4.3 3.5-5.1 N Lvl) [facility] CenterTpfugwjGONHOKYXJ6182-96-16 18:50:00 Test Item Value Reference Range Interpretation Comments BUN (test code = BUN) 10 7-22 N [facility] CenterEjvznexEUDBTIARA5865-33-67 18:50:00 Test Item Value Reference Range Interpretation Comments Creatinine Lvl (test code = Creatinine 1.0 0.5-1.4 N Lvl) [facility] CenterFkefxbfEEUVWJWRU4603-03-89 18:50:00 Test Item Value Reference Range Interpretation Comments Glucose Lvl (test code = Glucose Lvl) 113 70-99 H [facility] CenterVyjimpmSCXRPATQC3825-77-13 18:50:00 Test Item Value Reference Range Interpretation Comments CO2 (test code = CO2) 30 24-32 N [facility] CenterBagrthzXYOOIFWKR2002-36-15 18:50:00 Test Item Value Reference Range Interpretation Comments Calcium Lvl (test code = Calcium Lvl) 9.1 8.5-10.5 N [facility] HospitalMqqahqlSTOKZFDFYA8498-67-75 18:50:00 Test Item Value Reference Range Interpretation Comments INR (test code = INR) 0.97 0.85-1.17 N [facility] HospitalYxdaufyKUZVCECPWK5199-37-88 18:50:00 Test Item Value Reference Range Interpretation Comments PT (test code = PT) 13.1 s 12.0-14.7 N [facility] HospitalNcnkydkNVGMIZARRQ9885-01-79 18:50:00 Test Item Value Reference Range Interpretation Comments PTT (test code = PTT) 33.1 s 22.9-35.8 N [facility] HospitalJdzcvfoHCIXJKJOVH4954-31-00 18:50:00 Test Item Value Reference Range Interpretation Comments Hgb (test code = Hgb) 11.8 12.0-16.0 L [facility] HospitalYtcasgjZFCSMFRRBX3370-26-47 18:50:00 Test Item Value Reference Range Interpretation Comments Hct (test code = Hct) 36.4 36.0-48.0 N [facility] HospitalGnbkahaWRPSNKXCAK6535-39-06 18:50:00 Test Item Value Reference Range Interpretation Comments RBC (test code = RBC) 4.70 4.20-5.40 N [facility] HospitalSjfruiiQLKETXMEIS6908-69-99 18:50:00 Test Item Value Reference Range Interpretation Comments WBC (test code = WBC) 5.1 3.7-10.4 N [facility] HospitalUidobmqVFJCVFHHGM3203-39-35 18:50:00 Test Item Value Reference Range Interpretation Comments Platelet (test code = Platelet) 301 133-450 N [facility] HospitalQfljbugGIZQDRISRW3452-74-29 18:50:00 Test Item Value Reference Range Interpretation Comments MPV (test code = MPV) 8.5 7.4-10.4 N [facility] HospitalEsfibqzWBNSXKLBVT2154-22-63 18:50:00 Test Item Value Reference Range Interpretation Comments MCHC (test code = MCHC) 32.5 32.0-36.0 N [facility] HospitalLtuhodaKNPEPUJDXR2512-84-35 18:50:00 Test Item Value Reference Range Interpretation Comments MCH (test code = MCH) 25.1 pg 27.0-31.0 L [facility] HospitalEsodmmnLBWONLPNGS8807-20-17 18:50:00 Test Item Value Reference Range Interpretation Comments RDW (test code = RDW) 14.4 11.5-14.5 N [facility] HospitalTzahzgsBVXYWAIBEF7086-19-39 18:50:00 Test Item Value Reference Range Interpretation Comments MCV (test code = MCV) 77.4 81.0-99.0 L [facility] HospitalYgexkspPDYGSEWPWW4566-33-18 18:50:00 Test Item Value Reference Range Interpretation Comments Basophils # (test code 0.0 See_Comment N [Aut omated message] The = Basophils #) system which generated this result tra nsmitted reference range : <=0.2. The reference r nan was not used to int erpret this result as normal/abnormal . [facility] HospitalCrpurmlUVWJEQFQOP9882-49-31 18:50:00 Test Item Value Reference Range Interpretation Comments Elliptocyte (test code = Slight A Elliptocyte) *ABN*(04/05/2012 13:50:00) [facility] HospitalXyqrwcxABIKLTTMRP3613-89-04 18:50:00 Test Item Value Reference Range Interpretation Comments Microcyte (test code = 1+ *ABN*(04/05/2012 A Microcyte) 13:50:00) [facility] HospitalJdphqaoGIJCLBURZN6498-84-80 18:50:00 Test Item Value Reference Range Interpretation Comments Monocytes # (test code 0.2 See_Comment N [Aut omated message] The = Monocytes #) system which generated this result tra nsmitted reference range : <=0.8. The reference r nan was not used to int erpret this result as normal/abnormal . [facility] HospitalTsnrmstOTJDWDLUSH6934-14-59 18:50:00 Test Item Value Reference Range Interpretation Comments Eosinophils # (test code 0.3 See_Comment N [A utomated message] The = Eosinophils #) system whic h generated this result tra nsmitted reference range : <=0.5. The reference r nan was not used to int erpret this result as normal/abnormal . [facility] HospitalAssfglnIYLEEVHYTV7990-62-45 18:50:00 Test Item Value Reference Range Interpretation Comments Eosinophils (test code = 5.6 See_Comment H [A utomated message] The Eosinophils) system which ge nerated this result tra nsmitted reference range : <=4.0. The reference r nan was not used to int erpret this result as normal/abnormal . [facility] HospitalSgbgdhgDZUZPOYEES0776-77-19 18:50:00 Test Item Value Reference Range Interpretation Comments Plt Morph (test code = Normal (04/05/2012 N Plt Morph) 13:50:00) [facility] HospitalVsrkjmxYWMBXFAZJP2800-33-30 18:50:00 Test Item Value Reference Range Interpretation Comments Basophils (test code = 0.7 See_Comment N [Aut omated message] The Basophils) system which ge nerated this result tra nsmitted reference range : <=1.0. The reference r nan was not used to int erpret this result as normal/abnormal . [facility] HospitalVpoyefuWXDOZRCZUO8236-52-59 18:50:00 Test Item Value Reference Range Interpretation Comments Segs-Bands # (test code = Segs-Bands #) 3.7 1.5-8.1 N [facility] HospitalXheywtpMCNNRRWVDD1512-87-33 18:50:00 Test Item Value Reference Range Interpretation Comments Lymphocytes # (test code = Lymphocytes 0.9 1.0-5.5 L #) [facility] HospitalExmmoouWNREADRJNQ0952-96-50 18:50:00 Test Item Value Reference Range Interpretation Comments Segs (test code = Segs) 72.7 45.0-75.0 N [facility] HospitalXhjkggcAZCBHMHALN3434-69-19 18:50:00 Test Item Value Reference Range Interpretation Comments Lymphocytes (test code = Lymphocytes) 17.4 20.0-40.0 L [facility] HospitalSkaiyapMNXODRKBIE2763-76-77 18:50:00 Test Item Value Reference Range Interpretation Comments Monocytes (test code = Monocytes) 3.6 2.0-12.0 N [facility] CenterAqwgszdWECOKEHNR7342-87-66 18:50:00 Test Item Value Reference Range Interpretation Comments AGAP (test code = AGAP) 11.3 10.0-20.0 N [facility] CenterGwthyspMMUJJXWXZ1645-79-86 18:50:00 Test Item Value Reference Range Interpretation Comments eGFR (test code = eGFR) 87 [facility] CenterSukupulDCMGCWMVR6200-30-66 18:50:00 Test Item Value Reference Range Interpretation Comments Chloride Lvl (test code = Chloride Lvl) 102 95-109 N [facility] CenterVsiyoajKSTONDJJR7094-71-57 18:50:00 Test Item Value Reference Range Interpretation Comments Sodium Lvl (test code = Sodium Lvl) 139 135-145 N [facility] CenterDncwjzoWHOANZFYB3534-10-48 18:50:00 Test Item Value Reference Range Interpretation Comments Potassium Lvl (test code = Potassium 4.3 3.5-5.1 N Lvl) [facility]hqhvvoDCQFSUKSDP0616-45-08 17:53:00 Test Item Value Reference Range Interpretation Comments CDC-HIV 1/2 Ab (test Negative *NA*(04/05/2012 code = CDC-HIV 1/2 12:53:00) Ab) [facility]PvmtmocBGYXCAYXSF5674-02-59 17:53:00 Test Item Value Reference Range Interpretation Comments CDC-HIV 1/2 Ab (test Negative *NA*(04/05/2012 code = CDC-HIV 1/2 12:53:00) Ab) [facility]QkhizpsRBTQQAXYNU1652-55-58 17:53:00 Test Item Value Reference Range Interpretation Comments CDC-HIV 1/2 Ab (test Negative *NA*(04/05/2012 code = CDC-HIV 1/2 12:53:00) Ab) [facility] CenterMbttwfaKQQUNBYRTJ5806-05-97 17:53:00 Test Item Value Reference Range Interpretation Comments CDC-HIV 1/2 Ab (test Negative *NA*(04/05/2012 code = CDC-HIV 1/2 12:53:00) Ab) [facility] GLUCOSE [id number] 11:21:00 Test Item Value Reference Range Interpretation Comments Gluc POC Lifscn (test code = Gluc POC 143 70-99 H Lifscn) [facility] GLUCOSE [id number] 11:21:00 Test Item Value Reference Range Interpretation Comments Gluc POC Lifscn (test code = Gluc POC 143 70-99 H Lifscn) [facility] GLUCOSE OOWCHSZ4712-61-20 11:21:00 Test Item Value Reference Range Interpretation Comments Gluc POC Lifscn (test code = Gluc POC 143 70-99 H Lifscn) [facility] GLUCOSE FYGPCUR8524-84-76 11:21:00 Test Item Value Reference Range Interpretation Comments Gluc POC Lifscn (test code = Gluc POC 143 70-99 H Lifscn) [facility] GLUCOSE [id number] 02:00:00 Test Item Value Reference Range Interpretation Comments Gluc POC Lifscn (test code = Gluc POC 151 70-99 H Lifscn) [facility] GLUCOSE IZYRPMP4266-29-24 02:00:00 Test Item Value Reference Range Interpretation Comments Gluc POC Lifscn (test code = Gluc POC 151 70-99 H Lif[facility]n) [facility] GLUCOSE [id number] 02:00:00 Test Item Value Reference Range Interpretation Comments Gluc POC Lifscn (test code = Gluc POC 151 70-99 H Lif[facility]n) [facility] GLUCOSE AIZYBNH4567-55-70 02:00:00 Test Item Value Reference Range Interpretation Comments Gluc POC Lifscn (test code = Gluc POC 151 70-99 H Lif[facility]n) [facility] GLUCOSE [id number] 16:07:00 Test Item Value Reference Range Interpretation Comments Gluc POC Lifscn (test code = Gluc POC 136 70-99 H Lifscn) [facility] GLUCOSE [id number] 16:07:00 Test Item Value Reference Range Interpretation Comments Gluc POC Lifscn (test code = Gluc POC 136 70-99 H Lif[facility]n) [facility] GLUCOSE [id number] 16:07:00 Test Item Value Reference Range Interpretation Comments Gluc POC Lifscn (test code = Gluc POC 136 70-99 H [facility]) [facility] GLUCOSE [id number] 16:07:00 Test Item Value Reference Range Interpretation Comments Gluc POC Lifscn (test code = Gluc POC 136 70-99 H Lifscn) [facility] GLUCOSE [id number] 09:21:00 Test Item Value Reference Range Interpretation Comments Comment1 (test code = Comment1) Notify RN/ [facility] GLUCOSE OCXGJJJ1441-42-19 09:21:00 Test Item Value Reference Range Interpretation Comments Comment1 (test code = Comment1) Notify RN/ [facility] GLUCOSE [id number] 09:21:00 Test Item Value Reference Range Interpretation Comments Comment1 (test code = Comment1) Notify RN/ [facility] GLUCOSE [id number] 09:21:00 Test Item Value Reference Range Interpretation Comments Comment1 (test code = Comment1) [facility]JitxjghZZZJMWWTU7421-08-76 07:39:00 Test Item Value Reference Range Interpretation Comments Ca Norm mgdL (test code = Ca Norm mgdL) 4.76 4.65-5.20 N [facility] CenterQwmeoqpVRNDGVNTR7433-91-23 07:39:00 Test Item Value Reference Range Interpretation Comments Ca Ion mgdL (test code = Ca Ion mgdL) 4.60 4.65-5.20 L [facility] CenterLiqjuxuQWBYXPBBC4260-52-65 07:39:00 Test Item Value Reference Range Interpretation Comments Ca Ion (test code = Ca Ion) 1.15 1.16-1.30 L [facility] CenterWsaplatXZRAJPIWI8195-50-21 07:39:00 Test Item Value Reference Range Interpretation Comments Ca Norm (test code = Ca Norm) 1.19 1.16-1.30 N [facility] CenterXpmdxiuFMLGVWCRM1943-38-42 07:39:00 Test Item Value Reference Range Interpretation Comments Phosphorus (test code = Phosphorus) 2.8 2.5-4.5 N [facility] CenterMqeejpzTLUVGSHIZ7614-52-20 07:39:00 Test Item Value Reference Range Interpretation Comments Magnesium Lvl (test code = Magnesium 1.6 1.8-2.4 L Lvl) [facility] CenterAqsyimdROJIMWIPI4647-17-82 07:39:00 Test Item Value Reference Range Interpretation Comments AGAP (test code = AGAP) 15.9 10.0-20.0 N [facility] CenterBbhgqcuKHEVSSQIZ8516-66-25 07:39:00 Test Item Value Reference Range Interpretation Comments Calcium Lvl (test code = Calcium Lvl) 7.9 8.5-10.5 L [facility] CenterZzfffyzKKKQQGTTF0153-05-32 07:39:00 Test Item Value Reference Range Interpretation Comments Potassium Lvl (test code = Potassium 4.9 3.5-5.1 N Lvl) [facility] CenterQaosqkoTAJMAYXTF5332-22-58 07:39:00 Test Item Value Reference Range Interpretation Comments Sodium Lvl (test code = Sodium Lvl) 139 135-145 N [facility] CenterTrtvzkdJORGGXFHE4750-23-22 07:39:00 Test Item Value Reference Range Interpretation Comments Creatinine Lvl (test code = Creatinine 0.9 0.5-1.4 N Lvl) [facility] CenterBqeoiceBKMEJDBDA8515-68-14 07:39:00 Test Item Value Reference Range Interpretation Comments Chloride Lvl (test code = Chloride Lvl) 106 95-109 N [facility] CenterNkqckloUKLUVANTU3169-27-08 07:39:00 Test Item Value Reference Range Interpretation Comments CO2 (test code = CO2) 22 24-32 L [facility] CenterZgtqldsSNNLTWRNU2846-05-07 07:39:00 Test Item Value Reference Range Interpretation Comments Glucose Lvl (test code = Glucose Lvl) 127 70-99 H [facility] CenterUeugiftGMLNRDBUW9067-49-79 07:39:00 Test Item Value Reference Range Interpretation Comments BUN (test code = BUN) 8 7-22 N [facility] HospitalPjtyjjnUSJZEWRJUV5500-57-34 07:39:00 Test Item Value Reference Range Interpretation Comments Monocytes # (test code 0.1 See_Comment N [Aut omated message] The = Monocytes #) system which generated this result tra nsmitted reference range : <=0.8. The reference r nan was not used to int erpret this result as normal/abnormal . [facility] HospitalCnwkfpsIBWPFZIBOR7097-68-37 07:39:00 Test Item Value Reference Range Interpretation Comments Eosinophils # (test code 0.0 See_Comment N [A utomated message] The = Eosinophils #) system whic h generated this result tra nsmitted reference range : <=0.5. The reference r nan was not used to int erpret this result as normal/abnormal . [facility] HospitalPzhxouyGARITEIEFH8973-96-84 07:39:00 Test Item Value Reference Range Interpretation Comments Basophils # (test code 0.0 See_Comment N [Aut omated message] The = Basophils #) system which generated this result tra nsmitted reference range : <=0.2. The reference r nan was not used to int erpret this result as normal/abnormal . [facility] HospitalIepufjsTEASGYSEXC4662-90-53 07:39:00 Test Item Value Reference Range Interpretation Comments Microcyte (test code = 1+ *ABN*(03/28/2012 A Microcyte) 02:39:00) [facility] HospitalSeqlzwpBMGFHSFSPW0881-50-70 07:39:00 Test Item Value Reference Range Interpretation Comments Lymphocytes # (test code = Lymphocytes 0.5 1.0-5.5 L #) [facility] HospitalItuuinwSOJLQWROJM8485-00-11 07:39:00 Test Item Value Reference Range Interpretation Comments Monocytes (test code = Monocytes) 1.3 2.0-12.0 L [facility] HospitalIyxyxxxWICVTDNCVI9722-00-03 07:39:00 Test Item Value Reference Range Interpretation Comments Eosinophils (test code = 0.1 See_Comment N [A utomated message] The Eosinophils) system which ge nerated this result tra nsmitted reference range : <=4.0. The reference r nan was not used to int erpret this result as normal/abnormal . [facility] HospitalCsbdoffEYZDHLPSDY6938-04-49 07:39:00 Test Item Value Reference Range Interpretation Comments Basophils (test code = 0.0 See_Comment N [Aut omated message] The Basophils) system which ge nerated this result tra nsmitted reference range : <=1.0. The reference r nan was not used to int erpret this result as normal/abnormal . [facility] HospitalLzbexzmCUTCEKIEKV7212-47-68 07:39:00 Test Item Value Reference Range Interpretation Comments Segs-Bands # (test code = Segs-Bands #) 7.4 1.5-8.1 N [facility] HospitalNrlbqyjDPHKSKQYTX7590-82-89 07:39:00 Test Item Value Reference Range Interpretation Comments Segs (test code = Segs) 92.3 45.0-75.0 H [facility] HospitalRglbrrkHEJEXXSNDI0352-88-05 07:39:00 Test Item Value Reference Range Interpretation Comments Lymphocytes (test code = Lymphocytes) 6.3 20.0-40.0 L [facility] HospitalIasityvXZJTYPBSXR8209-70-25 07:39:00 Test Item Value Reference Range Interpretation Comments PTT (test code = PTT) 29.3 s 22.9-35.8 N [facility] HospitalMkrzztzJKWOVOYTAQ3172-27-48 07:39:00 Test Item Value Reference Range Interpretation Comments PT (test code = PT) 14.7 s 12.0-14.7 N [facility] HospitalQxywlvaQVWFLJPNTS9316-18-41 07:39:00 Test Item Value Reference Range Interpretation Comments INR (test code = INR) 1.13 0.85-1.17 N [facility] HospitalHwnioxzFRLLEZPPFV4598-92-77 07:39:00 Test Item Value Reference Range Interpretation Comments MCV (test code = MCV) 78.8 81.0-99.0 L [facility] HospitalXtgrbqnDXKUAHKPZR2512-40-92 07:39:00 Test Item Value Reference Range Interpretation Comments MCH (test code = MCH) 25.4 pg 27.0-31.0 L [facility] HospitalWrktwgwLMXPKNVHFL1334-14-46 07:39:00 Test Item Value Reference Range Interpretation Comments MCHC (test code = MCHC) 32.3 32.0-36.0 N [facility] HospitalTzryiolRHLTVGDANH8589-85-38 07:39:00 Test Item Value Reference Range Interpretation Comments RDW (test code = RDW) 15.7 11.5-14.5 H [facility] HospitalTopxzhqDUITUJBVYD7791-47-13 07:39:00 Test Item Value Reference Range Interpretation Comments Platelet (test code = Platelet) 288 133-450 N [facility] HospitalYvrnujvEAYVZFREZG0671-66-32 07:39:00 Test Item Value Reference Range Interpretation Comments MPV (test code = MPV) 9.4 7.4-10.4 N [facility] HospitalNigfalgNLWDWQMDXC4637-75-21 07:39:00 Test Item Value Reference Range Interpretation Comments Hct (test code = Hct) 33.0 36.0-48.0 L [facility] HospitalCaegurgHOFZOWARNY5596-50-93 07:39:00 Test Item Value Reference Range Interpretation Comments WBC (test code = WBC) 8.0 3.7-10.4 N [facility] HospitalFrntxkiORMZYCAQKC1382-53-21 07:39:00 Test Item Value Reference Range Interpretation Comments RBC (test code = RBC) 4.19 4.20-5.40 L [facility] HospitalAxoccqqJQZXOPAVAS7264-53-08 07:39:00 Test Item Value Reference Range Interpretation Comments Hgb (test code = Hgb) 10.6 12.0-16.0 L [facility] CenterSuctczjQECPPFMAN9701-11-81 07:39:00 Test Item Value Reference Range Interpretation Comments Ca Norm mgdL (test code = Ca Norm mgdL) 4.76 4.65-5.20 N [facility] CenterGzpeekkGMVZSLATZ3788-32-75 07:39:00 Test Item Value Reference Range Interpretation Comments Ca Ion mgdL (test code = Ca Ion mgdL) 4.60 4.65-5.20 L [facility] CenterSppggblFSGYISCWU6527-55-71 07:39:00 Test Item Value Reference Range Interpretation Comments Ca Ion (test code = Ca Ion) 1.15 1.16-1.30 L [facility] CenterBdghttsTRBJYODJD4166-29-40 07:39:00 Test Item Value Reference Range Interpretation Comments Ca Norm (test code = Ca Norm) 1.19 1.16-1.30 N [facility] CenterWpnmezdMHRPSFWXO6653-19-14 07:39:00 Test Item Value Reference Range Interpretation Comments Phosphorus (test code = Phosphorus) 2.8 2.5-4.5 N [facility] CenterYbdetacVRVHMOWID8964-00-90 07:39:00 Test Item Value Reference Range Interpretation Comments Magnesium Lvl (test code = Magnesium 1.6 1.8-2.4 L Lvl) [facility] CenterTbishmyZYQUWNOZD9698-14-72 07:39:00 Test Item Value Reference Range Interpretation Comments AGAP (test code = AGAP) 15.9 10.0-20.0 N [facility] CenterBwdlkyjINUATYHVN3174-95-52 07:39:00 Test Item Value Reference Range Interpretation Comments Calcium Lvl (test code = Calcium Lvl) 7.9 8.5-10.5 L [facility] CenterYeczacfSHDADQMOA5390-99-88 07:39:00 Test Item Value Reference Range Interpretation Comments Potassium Lvl (test code = Potassium 4.9 3.5-5.1 N Lvl) [facility] CenterZyoytyfERLIUMUCS5808-84-25 07:39:00 Test Item Value Reference Range Interpretation Comments Sodium Lvl (test code = Sodium Lvl) 139 135-145 N [facility] CenterXnqalueDCFLJZGAU3430-32-89 07:39:00 Test Item Value Reference Range Interpretation Comments Creatinine Lvl (test code = Creatinine 0.9 0.5-1.4 N Lvl) [facility] CenterKoblxkxWIALQLGRC5516-74-57 07:39:00 Test Item Value Reference Range Interpretation Comments Chloride Lvl (test code = Chloride Lvl) 106 95-109 N [facility] CenterYzlpukaUAONCQALK3058-55-85 07:39:00 Test Item Value Reference Range Interpretation Comments CO2 (test code = CO2) 22 24-32 L [facility] CenterLunypixPQBYIFSBE2692-92-44 07:39:00 Test Item Value Reference Range Interpretation Comments Glucose Lvl (test code = Glucose Lvl) 127 70-99 H [facility] CenterCmdtrpcRJTJRKKHL2121-58-51 07:39:00 Test Item Value Reference Range Interpretation Comments BUN (test code = BUN) 8 7-22 N [facility] HospitalNukalziBLEEVDEVZX2635-42-09 07:39:00 Test Item Value Reference Range Interpretation Comments Monocytes # (test code 0.1 See_Comment N [Aut omated message] The = Monocytes #) system which generated this result tra nsmitted reference range : <=0.8. The reference r nan was not used to int erpret this result as normal/abnormal . [facility] HospitalGatbiqlLOAXSJIJIY2366-91-98 07:39:00 Test Item Value Reference Range Interpretation Comments Eosinophils # (test code 0.0 See_Comment N [A utomated message] The = Eosinophils #) system whic h generated this result tra nsmitted reference range : <=0.5. The reference r nan was not used to int erpret this result as normal/abnormal . [facility] HospitalRmekyrsPWTIBAAAMF2931-93-68 07:39:00 Test Item Value Reference Range Interpretation Comments Basophils # (test code 0.0 See_Comment N [Aut omated message] The = Basophils #) system which generated this result tra nsmitted reference range : <=0.2. The reference r nan was not used to int erpret this result as normal/abnormal . [facility] HospitalAqoeniiWZISHUZQLS3684-24-89 07:39:00 Test Item Value Reference Range Interpretation Comments Microcyte (test code = 1+ *ABN*(03/28/2012 A Microcyte) 02:39:00) [facility] HospitalFhbeaejDWPTXQLOZW4637-91-64 07:39:00 Test Item Value Reference Range Interpretation Comments Lymphocytes # (test code = Lymphocytes 0.5 1.0-5.5 L #) [facility] HospitalMjiqwmxCFTZFJXOBN8815-36-33 07:39:00 Test Item Value Reference Range Interpretation Comments Monocytes (test code = Monocytes) 1.3 2.0-12.0 L [facility] HospitalNhtpmrbBGKRMIERFM9925-81-27 07:39:00 Test Item Value Reference Range Interpretation Comments Eosinophils (test code = 0.1 See_Comment N [A utomated message] The Eosinophils) system which ge nerated this result tra nsmitted reference range : <=4.0. The reference r nan was not used to int erpret this result as normal/abnormal . [facility] HospitalAgvrxyjJQKBRCIBAV6815-12-56 07:39:00 Test Item Value Reference Range Interpretation Comments Basophils (test code = 0.0 See_Comment N [Aut omated message] The Basophils) system which ge nerated this result tra nsmitted reference range : <=1.0. The reference r nan was not used to int erpret this result as normal/abnormal . [facility] HospitalKfhnbssYGMPRKBGXR4651-42-82 07:39:00 Test Item Value Reference Range Interpretation Comments Segs-Bands # (test code = Segs-Bands #) 7.4 1.5-8.1 N [facility] HospitalLiklvtfZUYBWWAKZH4564-27-03 07:39:00 Test Item Value Reference Range Interpretation Comments Segs (test code = Segs) 92.3 45.0-75.0 H [facility] HospitalYundiguXBFPFYIHBB9475-37-35 07:39:00 Test Item Value Reference Range Interpretation Comments Lymphocytes (test code = Lymphocytes) 6.3 20.0-40.0 L [facility] HospitalEzaptedQVBGQPDJCN3121-19-85 07:39:00 Test Item Value Reference Range Interpretation Comments PTT (test code = PTT) 29.3 s 22.9-35.8 N [facility] HospitalPiwdtldCCMOKCPLDP9588-37-94 07:39:00 Test Item Value Reference Range Interpretation Comments PT (test code = PT) 14.7 s 12.0-14.7 N [facility] HospitalDcipqocKYEZZRBJTX4270-35-61 07:39:00 Test Item Value Reference Range Interpretation Comments INR (test code = INR) 1.13 0.85-1.17 N [facility] HospitalYmxukrtJGQDRBKJNR8079-21-62 07:39:00 Test Item Value Reference Range Interpretation Comments MCV (test code = MCV) 78.8 81.0-99.0 L [facility] HospitalSrchisnUEMLXUKLGU7122-65-42 07:39:00 Test Item Value Reference Range Interpretation Comments MCH (test code = MCH) 25.4 pg 27.0-31.0 L [facility] HospitalWggvwcyEBZKUHKGWH6378-53-48 07:39:00 Test Item Value Reference Range Interpretation Comments MCHC (test code = MCHC) 32.3 32.0-36.0 N [facility] HospitalIysgcmhKZGYNCFLYM4563-72-88 07:39:00 Test Item Value Reference Range Interpretation Comments RDW (test code = RDW) 15.7 11.5-14.5 H [facility] HospitalKxhvphtFQSUTUWETL6751-38-91 07:39:00 Test Item Value Reference Range Interpretation Comments Platelet (test code = Platelet) 288 133-450 N [facility] HospitalLxahctkJRIAYILBKD6827-07-26 07:39:00 Test Item Value Reference Range Interpretation Comments MPV (test code = MPV) 9.4 7.4-10.4 N [facility] HospitalAskktjnKYHDCEIYCS9550-60-34 07:39:00 Test Item Value Reference Range Interpretation Comments Hct (test code = Hct) 33.0 36.0-48.0 L [facility] HospitalFdfauriMAFWEDCGCT8946-16-95 07:39:00 Test Item Value Reference Range Interpretation Comments WBC (test code = WBC) 8.0 3.7-10.4 N [facility] HospitalZsewwzbHEMSNYLORC8872-85-66 07:39:00 Test Item Value Reference Range Interpretation Comments RBC (test code = RBC) 4.19 4.20-5.40 L [facility] HospitalSnfykinETRLQMGSEH6894-29-30 07:39:00 Test Item Value Reference Range Interpretation Comments Hgb (test code = Hgb) 10.6 12.0-16.0 L [facility] CenterDhsvoagHUVNZNABR3314-15-21 07:39:00 Test Item Value Reference Range Interpretation Comments Ca Norm mgdL (test code = Ca Norm mgdL) 4.76 4.65-5.20 N [facility] CenterNnhxyhsELFPEZVFT8999-84-87 07:39:00 Test Item Value Reference Range Interpretation Comments Ca Ion mgdL (test code = Ca Ion mgdL) 4.60 4.65-5.20 L [facility] CenterBwmyjmiIUWDJNUUZ4188-59-49 07:39:00 Test Item Value Reference Range Interpretation Comments Ca Ion (test code = Ca Ion) 1.15 1.16-1.30 L [facility] CenterYhxdegxJSICTODTV6751-55-97 07:39:00 Test Item Value Reference Range Interpretation Comments Ca Norm (test code = Ca Norm) 1.19 1.16-1.30 N [facility] CenterJccfhjrTJQBOLKNR2743-93-10 07:39:00 Test Item Value Reference Range Interpretation Comments Phosphorus (test code = Phosphorus) 2.8 2.5-4.5 N [facility] CenterMpchihnLBMXRETEM2637-43-09 07:39:00 Test Item Value Reference Range Interpretation Comments Magnesium Lvl (test code = Magnesium 1.6 1.8-2.4 L Lvl) [facility] CenterOlmopjiDDGVNVDUW4377-44-90 07:39:00 Test Item Value Reference Range Interpretation Comments AGAP (test code = AGAP) 15.9 10.0-20.0 N [facility] CenterOncwmjkDKHCLZKLW8719-75-98 07:39:00 Test Item Value Reference Range Interpretation Comments Calcium Lvl (test code = Calcium Lvl) 7.9 8.5-10.5 L [facility] CenterEoxdpyrRWUYOTTSP2895-35-52 07:39:00 Test Item Value Reference Range Interpretation Comments Potassium Lvl (test code = Potassium 4.9 3.5-5.1 N Lvl) [facility] CenterRpridreQRYRNVIVF9717-33-57 07:39:00 Test Item Value Reference Range Interpretation Comments Sodium Lvl (test code = Sodium Lvl) 139 135-145 N [facility] CenterJfqezaiTZTTRMWPQ2973-62-56 07:39:00 Test Item Value Reference Range Interpretation Comments Creatinine Lvl (test code = Creatinine 0.9 0.5-1.4 N Lvl) [facility] CenterQshgkkvVFTDJONTS6186-94-25 07:39:00 Test Item Value Reference Range Interpretation Comments Chloride Lvl (test code = Chloride Lvl) 106 95-109 N [facility] CenterAkvcoxwFZQVXENOZ2262-38-95 07:39:00 Test Item Value Reference Range Interpretation Comments CO2 (test code = CO2) 22 24-32 L [facility] CenterYttexxqDMEMCRNYN4484-52-76 07:39:00 Test Item Value Reference Range Interpretation Comments Glucose Lvl (test code = Glucose Lvl) 127 70-99 H [facility] CenterOqxqyvqMIHEXDLKV5392-02-46 07:39:00 Test Item Value Reference Range Interpretation Comments BUN (test code = BUN) 8 7-22 N [facility] HospitalVfklnkgTVNQWJWRMD6370-10-25 07:39:00 Test Item Value Reference Range Interpretation Comments Monocytes # (test code 0.1 See_Comment N [Aut omated message] The = Monocytes #) system which generated this result tra nsmitted reference range : <=0.8. The reference r nan was not used to int erpret this result as normal/abnormal . [facility] HospitalOnsftcuQROYTECNIX7220-47-35 07:39:00 Test Item Value Reference Range Interpretation Comments Eosinophils # (test code 0.0 See_Comment N [A utomated message] The = Eosinophils #) system whic h generated this result tra nsmitted reference range : <=0.5. The reference r nan was not used to int erpret this result as normal/abnormal . [facility] HospitalQheiciiJRCVYJVCZL7802-04-58 07:39:00 Test Item Value Reference Range Interpretation Comments Basophils # (test code 0.0 See_Comment N [Aut omated message] The = Basophils #) system which generated this result tra nsmitted reference range : <=0.2. The reference r nan was not used to int erpret this result as normal/abnormal . [facility] HospitalRhtvkzwXAWSAXAOMM3523-31-61 07:39:00 Test Item Value Reference Range Interpretation Comments Microcyte (test code = 1+ *ABN*(03/28/2012 A Microcyte) 02:39:00) [facility] HospitalVkwzogeAVIRTINKQU4696-56-55 07:39:00 Test Item Value Reference Range Interpretation Comments Lymphocytes # (test code = Lymphocytes 0.5 1.0-5.5 L #) [facility] HospitalZpgbnqdHZDWBIPYNE1715-98-84 07:39:00 Test Item Value Reference Range Interpretation Comments Monocytes (test code = Monocytes) 1.3 2.0-12.0 L [facility] HospitalIdmpnzwIGXTITJASG1530-67-60 07:39:00 Test Item Value Reference Range Interpretation Comments Eosinophils (test code = 0.1 See_Comment N [A utomated message] The Eosinophils) system which ge nerated this result tra nsmitted reference range : <=4.0. The reference r nan was not used to int erpret this result as normal/abnormal . [facility] HospitalDqmdnaeHUWQQGPFTA8160-85-43 07:39:00 Test Item Value Reference Range Interpretation Comments Basophils (test code = 0.0 See_Comment N [Aut omated message] The Basophils) system which ge nerated this result tra nsmitted reference range : <=1.0. The reference r nan was not used to int erpret this result as normal/abnormal . [facility] HospitalLqsvdstYZHNYYFGVN3955-69-34 07:39:00 Test Item Value Reference Range Interpretation Comments Segs-Bands # (test code = Segs-Bands #) 7.4 1.5-8.1 N [facility] HospitalSeaisjlANFBZOBWKC7045-06-71 07:39:00 Test Item Value Reference Range Interpretation Comments Segs (test code = Segs) 92.3 45.0-75.0 H [facility] HospitalXttzhceDUEVIPBPDM3873-86-67 07:39:00 Test Item Value Reference Range Interpretation Comments Lymphocytes (test code = Lymphocytes) 6.3 20.0-40.0 L [facility] HospitalWzoatkwBRXOTKZZZT1786-41-20 07:39:00 Test Item Value Reference Range Interpretation Comments PTT (test code = PTT) 29.3 s 22.9-35.8 N [facility] HospitalHrtpxqvEUXZFBOFAH9567-55-85 07:39:00 Test Item Value Reference Range Interpretation Comments PT (test code = PT) 14.7 s 12.0-14.7 N [facility] HospitalZpfbkjhNIGMXIPJNI3355-64-75 07:39:00 Test Item Value Reference Range Interpretation Comments INR (test code = INR) 1.13 0.85-1.17 N [facility] HospitalQaitdrcNFJYFJXPVJ9181-99-43 07:39:00 Test Item Value Reference Range Interpretation Comments MCV (test code = MCV) 78.8 81.0-99.0 L [facility] HospitalGotfihcCBNPEWHIUV7997-83-54 07:39:00 Test Item Value Reference Range Interpretation Comments MCH (test code = MCH) 25.4 pg 27.0-31.0 L [facility] HospitalIthsljyMSHOESYLAO6858-44-29 07:39:00 Test Item Value Reference Range Interpretation Comments MCHC (test code = MCHC) 32.3 32.0-36.0 N [facility] HospitalQxrdlwxIKBPYLOICN7613-21-02 07:39:00 Test Item Value Reference Range Interpretation Comments RDW (test code = RDW) 15.7 11.5-14.5 H [facility] HospitalQftxuawTOLRPYLNGC2452-06-89 07:39:00 Test Item Value Reference Range Interpretation Comments Platelet (test code = Platelet) 288 133-450 N [facility] HospitalLmuccwgSKNLESRPWQ0602-04-41 07:39:00 Test Item Value Reference Range Interpretation Comments MPV (test code = MPV) 9.4 7.4-10.4 N [facility] HospitalBayxbrxZBCCCJXJDU4055-98-39 07:39:00 Test Item Value Reference Range Interpretation Comments Hct (test code = Hct) 33.0 36.0-48.0 [facility]2012-10-02 07:39:00 Test Item Value Reference Range Interpretation Comments WBC (test code = WBC) 8.0 3.7-10.4 N [facility] HospitalYmoxdznARPTKYKAQV6294-84-87 07:39:00 Test Item Value Reference Range Interpretation Comments RBC (test code = RBC) 4.19 4.20-5.40 L [facility] HospitalQpnfnqgRJJANUFIVK3763-29-87 07:39:00 Test Item Value Reference Range Interpretation Comments Hgb (test code = Hgb) 10.6 12.0-16.0 [facility]2012-10-02 07:39:00 Test Item Value Reference Range Interpretation Comments Ca Norm mgdL (test code = Ca Norm mgdL) 4.76 4.65-5.20 N [facility] CenterTdtmpwuJYLAALRRU2535-94-07 07:39:00 Test Item Value Reference Range Interpretation Comments Ca Ion mgdL (test code = Ca Ion mgdL) 4.60 4.65-5.20 L [facility] CenterBinhmbaMLNMIZWTS8563-93-01 07:39:00 Test Item Value Reference Range Interpretation Comments Ca Ion (test code = Ca Ion) 1.15 1.16-1.30 L [facility] CenterPuqrzuuFVDXDTXDM8837-94-05 07:39:00 Test Item Value Reference Range Interpretation Comments Ca Norm (test code = Ca Norm) 1.19 1.16-1.30 N [facility] CenterNiwurmtCPNRYDOCS8347-58-10 07:39:00 Test Item Value Reference Range Interpretation Comments Phosphorus (test code = Phosphorus) 2.8 2.5-4.5 N [facility] CenterIolnccbXWNWAGJDN5420-03-71 07:39:00 Test Item Value Reference Range Interpretation Comments Magnesium Lvl (test code = Magnesium 1.6 1.8-2.4 L Lvl) [facility] CenterGvprfawYCWCCQZVV9680-53-58 07:39:00 Test Item Value Reference Range Interpretation Comments AGAP (test code = AGAP) 15.9 10.0-20.0 N [facility] CenterRflfkqpMIAONRWDC3400-26-58 07:39:00 Test Item Value Reference Range Interpretation Comments Calcium Lvl (test code = Calcium Lvl) 7.9 8.5-10.5 L [facility] CenterWmqkavwBVDTHOHFI0168-58-19 07:39:00 Test Item Value Reference Range Interpretation Comments Potassium Lvl (test code = Potassium 4.9 3.5-5.1 N Lvl) [facility] CenterIqjqiwqPIRPTPAWM2747-09-79 07:39:00 Test Item Value Reference Range Interpretation Comments Sodium Lvl (test code = Sodium Lvl) 139 135-145 N [facility] CenterVarbwvmPBRJCQFQP6845-03-44 07:39:00 Test Item Value Reference Range Interpretation Comments Creatinine Lvl (test code = Creatinine 0.9 0.5-1.4 N Lvl) [facility] CenterSqovzkfZERBFEYGI0031-66-95 07:39:00 Test Item Value Reference Range Interpretation Comments Chloride Lvl (test code = Chloride Lvl) 106 95-109 N [facility] CenterFiwgeiyPRPMMZRGP6870-59-85 07:39:00 Test Item Value Reference Range Interpretation Comments CO2 (test code = CO2) 22 24-32 L [facility] CenterNtkqnsyDSVPOWRUR5763-87-65 07:39:00 Test Item Value Reference Range Interpretation Comments Glucose Lvl (test code = Glucose Lvl) 127 70-99 H [facility] CenterPqiwwxgHTTWBVPRS5546-60-50 07:39:00 Test Item Value Reference Range Interpretation Comments BUN (test code = BUN) 8 7-22 N [facility] HospitalKeqmzekZZLITIWUEV8237-79-00 07:39:00 Test Item Value Reference Range Interpretation Comments Monocytes # (test code 0.1 See_Comment N [Aut omated message] The = Monocytes #) system which generated this result tra nsmitted reference range : <=0.8. The reference r nan was not used to int erpret this result as normal/abnormal . [facility] HospitalQrhfmsmRGVGHTMWOY7565-17-90 07:39:00 Test Item Value Reference Range Interpretation Comments Eosinophils # (test code 0.0 See_Comment N [A utomated message] The = Eosinophils #) system whic h generated this result tra nsmitted reference range : <=0.5. The reference r nan was not used to int erpret this result as normal/abnormal . [facility] HospitalEuqhuaoTLONEAJQEQ9321-54-84 07:39:00 Test Item Value Reference Range Interpretation Comments Basophils # (test code 0.0 See_Comment N [Aut omated message] The = Basophils #) system which generated this result tra nsmitted reference range : <=0.2. The reference r nna was not used to int erpret this result as normal/abnormal . [facility] HospitalYyqoepgPHJXZLIZQD0558-57-17 07:39:00 Test Item Value Reference Range Interpretation Comments Microcyte (test code = 1+ *ABN*(03/28/2012 A Microcyte) 02:39:00) [facility] HospitalMirhhkxYGOAGUIWKD6152-27-02 07:39:00 Test Item Value Reference Range Interpretation Comments Lymphocytes # (test code = Lymphocytes 0.5 1.0-5.5 L #) [facility] HospitalLwnoiplFMGAFGDOHI1192-31-07 07:39:00 Test Item Value Reference Range Interpretation Comments Monocytes (test code = Monocytes) 1.3 2.0-12.0 L [facility] HospitalRbmsuhmLZQAGJNRFD4124-18-39 07:39:00 Test Item Value Reference Range Interpretation Comments Eosinophils (test code = 0.1 See_Comment N [A utomated message] The Eosinophils) system which ge nerated this result tra nsmitted reference range : <=4.0. The reference r nan was not used to int erpret this result as normal/abnormal . [facility] HospitalRdrjjdaGJPBRKOXSJ6108-40-14 07:39:00 Test Item Value Reference Range Interpretation Comments Basophils (test code = 0.0 See_Comment N [Aut omated message] The Basophils) system which ge nerated this result tra nsmitted reference range : <=1.0. The reference r nan was not used to int erpret this result as normal/abnormal . [facility] HospitalAzzuijcTTUVJUGBMW5663-41-30 07:39:00 Test Item Value Reference Range Interpretation Comments Segs-Bands # (test code = Segs-Bands #) 7.4 1.5-8.1 N [facility] HospitalTfgqhoyDGSYIGNBHX8422-63-37 07:39:00 Test Item Value Reference Range Interpretation Comments Segs (test code = Segs) 92.3 45.0-75.0 H [facility] HospitalZoewxoqKUHHFZMOSF6640-67-31 07:39:00 Test Item Value Reference Range Interpretation Comments Lymphocytes (test code = Lymphocytes) 6.3 20.0-40.0 L [facility] HospitalByummtyKCIPFKILAP9941-92-40 07:39:00 Test Item Value Reference Range Interpretation Comments PTT (test code = PTT) 29.3 s 22.9-35.8 N [facility] HospitalKpkeslpTFWFLTIAOP0477-82-70 07:39:00 Test Item Value Reference Range Interpretation Comments PT (test code = PT) 14.7 s 12.0-14.7 N [facility] HospitalJxveregZRLVXVUXFD8734-47-48 07:39:00 Test Item Value Reference Range Interpretation Comments INR (test code = INR) 1.13 0.85-1.17 N [facility] HospitalCrzmrjrIYBSQOCQBO7499-87-13 07:39:00 Test Item Value Reference Range Interpretation Comments MCV (test code = MCV) 78.8 81.0-99.0 L [facility] HospitalSkjywxbWSLFSSGBUO0850-99-85 07:39:00 Test Item Value Reference Range Interpretation Comments MCH (test code = MCH) 25.4 pg 27.0-31.0 L [facility] HospitalSxwmylwJECHUXYTEL7129-53-49 07:39:00 Test Item Value Reference Range Interpretation Comments MCHC (test code = MCHC) 32.3 32.0-36.0 N [facility] HospitalKunzsaeFXBUOLWCZC1501-72-15 07:39:00 Test Item Value Reference Range Interpretation Comments RDW (test code = RDW) 15.7 11.5-14.5 H [facility] HospitalWozpaigAAVXDCIYZK1179-85-54 07:39:00 Test Item Value Reference Range Interpretation Comments Platelet (test code = Platelet) 288 133-450 N [facility] HospitalWmknkamKPBFPTRBMK1715-85-35 07:39:00 Test Item Value Reference Range Interpretation Comments MPV (test code = MPV) 9.4 7.4-10.4 N [facility] HospitalRybicsuVXFTZKYSSM8749-95-21 07:39:00 Test Item Value Reference Range Interpretation Comments Hct (test code = Hct) 33.0 36.0-48.0 L [facility] HospitalAhfbhkfHDWHFBSQIA6935-42-97 07:39:00 Test Item Value Reference Range Interpretation Comments WBC (test code = WBC) 8.0 3.7-10.4 N [facility] HospitalMkhxahlZXAKAVCQVJ1682-29-20 07:39:00 Test Item Value Reference Range Interpretation Comments RBC (test code = RBC) 4.19 4.20-5.40 L [facility] HospitalSnewgjiVKIBQDQEZU4629-92-23 07:39:00 Test Item Value Reference Range Interpretation Comments Hgb (test code = Hgb) 10.6 12.0-16.[address] [facility] GLUCOSE UHYOCIP5947-92-16 04:52:00 Test Item Value Reference Range Interpretation Comments Comment1 (test code = Comment1) Notify RN/ [facility] GLUCOSE ULAHRCJ1929-43-02 04:52:00 Test Item Value Reference Range Interpretation Comments Comment1 (test code = Comment1) Notify RN/ [facility] GLUCOSE WCFRRVU0205-07-61 04:52:00 Test Item Value Reference Range Interpretation Comments Comment1 (test code = Comment1) Notify RN/ [facility] GLUCOSE RDPITFU3880-39-07 04:52:00 Test Item Value Reference Range Interpretation Comments Comment1 (test code = Comment1) Notify RN/ [facility] GLUCOSE ZMZJBDX3467-44-92 00:39:00 Test Item Value Reference Range Interpretation Comments Comment1 (test code = Comment1) Notify RN/ [facility] GLUCOSE DTYYSBZ5270-72-59 00:39:00 Test Item Value Reference Range Interpretation Comments Comment1 (test code = Comment1) Notify RN/ [facility] GLUCOSE ORATYXX6783-35-15 00:39:00 Test Item Value Reference Range Interpretation Comments Comment1 (test code = Comment1) Notify RN/ [facility] GLUCOSE HFEBMZD1071-38-41 00:39:00 Test Item Value Reference Range Interpretation Comments Comment1 (test code = Comment1) [facility]DgmamdzPPNDLRYBC1220-96-29 13:59:00 Test Item Value Reference Range Interpretation Comments POC A Glu (test code = POC A Glu) 97 70-99 N [facility] CenterWqvphqiMWYLRUXFS3472-94-07 13:59:00 Test Item Value Reference Range Interpretation Comments POC A LA (test code = POC A LA) 0.6 0.5-2.2 N [facility] CenterCjmfoafZNAHRAFDF8218-33-79 13:59:00 Test Item Value Reference Range Interpretation Comments POC A HCO3 (test code = POC A HCO3) 28 22-26 H [facility] CenterKjeebzrHGJPPKYKC3070-04-48 13:59:00 Test Item Value Reference Range Interpretation Comments POC A PCO2 (test code = POC A PCO2) 40 35-45 N [facility] CenterKuxgisiWMASAAVYJ9518-19-27 13:59:00 Test Item Value Reference Range Interpretation Comments POC A O2 Sat (test code = POC A O2 Sat) 100.0 95.0-100.0 N [facility] CenterQazvagfDKWDNUEZZ4130-79-39 13:59:00 Test Item Value Reference Range Interpretation Comments POC A BE (test code = 4 See_Comment H [Auto mated message] The POC A BE) system which ge nerated this result transmit toño reference range : <=2. The reference range was not used to interpr et this result as alistair l/abnormal. [facility] CenterJhibmbgQSAZUOVBX1090-77-71 13:59:00 Test Item Value Reference Range Interpretation Comments POC A Ca Ion (test code = POC A Ca Ion) 1.08 1.16-1.30 L [facility] CenterSfbdfylHHWNAJXXG0032-86-71 13:59:00 Test Item Value Reference Range Interpretation Comments POC A K (test code = POC A K) 4.4 3.5-5.1 N [facility] CenterOvhzkmfMMMZYOWNT6829-92-10 13:59:00 Test Item Value Reference Range Interpretation Comments POC A Source (test code = POC A Source) ART [facility] CenterZhjlnjmJMQWUHNLV4343-83-14 13:59:00 Test Item Value Reference Range Interpretation Comments POC A Temp (test code = POC A Temp) 37.0 [facility] CenterZfgcfmlSMGPXKBYY4410-80-63 13:59:00 Test Item Value Reference Range Interpretation Comments POC A Na (test code = POC A Na) 134 135-145 L [facility] CenterYmnzpfjULMNBIYBE0275-26-15 13:59:00 Test Item Value Reference Range Interpretation Comments POC A Hct (test code = POC A Hct) 34.0 36.0-48.0 L [facility] CenterKlaztznJEOVMWIQD0972-45-04 13:59:00 Test Item Value Reference Range Interpretation Comments POC A PO2 (test code = POC A PO2) 317 80-100 [facility]UybpoerIEZKVXZMU9425-24-65 13:59:00 Test Item Value Reference Range Interpretation Comments POC A pH (test code = POC A pH) 7.45 7.35-7.45 N [facility] CenterUfgpjazHDNZXNEWS8928-39-46 13:59:00 Test Item Value Reference Range Interpretation Comments POC A Glu (test code = POC A Glu) 97 70-99 N [facility] CenterMccujwxHCVSBLNAJ1988-56-93 13:59:00 Test Item Value Reference Range Interpretation Comments POC A LA (test code = POC A LA) 0.6 0.5-2.2 N [facility] CenterChkgyepHUWLZPSZR7954-17-61 13:59:00 Test Item Value Reference Range Interpretation Comments POC A HCO3 (test code = POC A HCO3) 28 22-26 H [facility] CenterUyhfdtbKNTMMVQSW6073-29-80 13:59:00 Test Item Value Reference Range Interpretation Comments POC A PCO2 (test code = POC A PCO2) 40 35-45 N [facility] CenterUgziolpVVFHWICOV8398-02-86 13:59:00 Test Item Value Reference Range Interpretation Comments POC A O2 Sat (test code = POC A O2 Sat) 100.0 95.0-100.0 N [facility] CenterGfjjehbWQPHOGLRR6143-58-33 13:59:00 Test Item Value Reference Range Interpretation Comments POC A BE (test code = 4 See_Comment H [Auto mated message] The POC A BE) system which ge nerated this result transmit toño reference range : <=2. The reference range was not used to interpr et this result as alistair l/abnormal. [facility] CenterEacwdeyYEBBZRIDK0962-60-68 13:59:00 Test Item Value Reference Range Interpretation Comments POC A Ca Ion (test code = POC A Ca Ion) 1.08 1.16-1.30 L [facility] CenterDzabylqMPHTWQKIF4138-27-56 13:59:00 Test Item Value Reference Range Interpretation Comments POC A K (test code = POC A K) 4.4 3.5-5.1 N [facility] CenterCnagrorHADRAXAQI5191-89-86 13:59:00 Test Item Value Reference Range Interpretation Comments POC A Source (test code = POC A Source) ART [facility] CenterMmtxvziDMEDDMQWS9483-90-03 13:59:00 Test Item Value Reference Range Interpretation Comments POC A Temp (test code = POC A Temp) 37.0 [facility] CenterEzzdycoMGODLWORE0662-09-42 13:59:00 Test Item Value Reference Range Interpretation Comments POC A Na (test code = POC A Na) 134 135-145 L [facility] CenterCczcrsrYSNAFNKGT6164-46-27 13:59:00 Test Item Value Reference Range Interpretation Comments POC A Hct (test code = POC A Hct) 34.0 36.0-48.0 L [facility] CenterIjtgvrkSXTYQYTWG1225-97-37 13:59:00 Test Item Value Reference Range Interpretation Comments POC A PO2 (test code = POC A PO2) 317 80-100 H [facility] CenterQpqtvblUFNGJHWJH3129-84-57 13:59:00 Test Item Value Reference Range Interpretation Comments POC A pH (test code = POC A pH) 7.45 7.35-7.45 N [facility] CenterUrtypuiLUZNFZTWQ7665-43-68 13:59:00 Test Item Value Reference Range Interpretation Comments POC A Glu (test code = POC A Glu) 97 70-99 N [facility] CenterHxctjwxDMVTRIYNH1888-20-82 13:59:00 Test Item Value Reference Range Interpretation Comments POC A LA (test code = POC A LA) 0.6 0.5-2.2 N [facility] CenterWtlthpjEGZQPRMHT3382-99-78 13:59:00 Test Item Value Reference Range Interpretation Comments POC A HCO3 (test code = POC A HCO3) 28 22-26 H [facility] CenterZlyqxxjNXLAWQLWL8803-03-63 13:59:00 Test Item Value Reference Range Interpretation Comments POC A PCO2 (test code = POC A PCO2) 40 35-45 N [facility] CenterWbayktrDITGAXRPP0886-36-38 13:59:00 Test Item Value Reference Range Interpretation Comments POC A O2 Sat (test code = POC A O2 Sat) 100.0 95.0-100.0 N [facility] CenterYqujwatGRUDZTYWK9189-03-47 13:59:00 Test Item Value Reference Range Interpretation Comments POC A BE (test code = 4 See_Comment H [Auto mated message] The POC A BE) system which ge nerated this result transmit toño reference range : <=2. The reference range was not used to interpr et this result as alistair l/abnormal. [facility] CenterHoixoagDHCHIVQVE8311-29-17 13:59:00 Test Item Value Reference Range Interpretation Comments POC A Ca Ion (test code = POC A Ca Ion) 1.08 1.16-1.30 L [facility] CenterXjlnjsuZFWZQOATZ5877-70-78 13:59:00 Test Item Value Reference Range Interpretation Comments POC A K (test code = POC A K) 4.4 3.5-5.1 N [facility] CenterIpeixmeLTSJOFLXP6461-67-33 13:59:00 Test Item Value Reference Range Interpretation Comments POC A Source (test code = POC A Source) ART [facility] CenterIixeqebFYBFLDFYN7805-91-56 13:59:00 Test Item Value Reference Range Interpretation Comments POC A Temp (test code = POC A Temp) 37.0 [facility] CenterDdvbyzzYGRZXNAGP5674-21-24 13:59:00 Test Item Value Reference Range Interpretation Comments POC A Na (test code = POC A Na) 134 135-145 L [facility] CenterKrvnizgFFLAVIITZ3461-33-81 13:59:00 Test Item Value Reference Range Interpretation Comments POC A Hct (test code = POC A Hct) 34.0 36.0-48.0 L [facility] CenterYlttzgmTRKRWAVKN6687-36-05 13:59:00 Test Item Value Reference Range Interpretation Comments POC A PO2 (test code = POC A PO2) 317 80-100 H [facility] CenterXszkpejNCDRIPLAC0099-15-85 13:59:00 Test Item Value Reference Range Interpretation Comments POC A pH (test code = POC A pH) 7.45 7.35-7.45 N [facility] CenterWrzctnuZMWPRQBZP0871-62-26 13:59:00 Test Item Value Reference Range Interpretation Comments POC A Glu (test code = POC A Glu) 97 70-99 N [facility] CenterMhgarxzLDTGKKSLE7546-61-53 13:59:00 Test Item Value Reference Range Interpretation Comments POC A LA (test code = POC A LA) 0.6 0.5-2.2 N [facility] CenterYsmwfbeOLQZTSODZ6529-69-69 13:59:00 Test Item Value Reference Range Interpretation Comments POC A HCO3 (test code = POC A HCO3) 28 22-26 H [facility] CenterVbkdyntNVEOGQNXE9332-67-59 13:59:00 Test Item Value Reference Range Interpretation Comments POC A PCO2 (test code = POC A PCO2) 40 35-45 N [facility] CenterPtqfvljRPVYTQHMR2994-38-94 13:59:00 Test Item Value Reference Range Interpretation Comments POC A O2 Sat (test code = POC A O2 Sat) 100.0 95.0-100.0 N [facility] CenterRkjsfoaNDOHPVMTW3152-31-54 13:59:00 Test Item Value Reference Range Interpretation Comments POC A BE (test code = 4 See_Comment H [Auto mated message] The POC A BE) system which ge nerated this result transmit toño reference range : <=2. The reference range was not used to interpr et this result as alistair l/abnormal. [facility] CenterZoiymsoAUKBZOSIQ0146-96-56 13:59:00 Test Item Value Reference Range Interpretation Comments POC A Ca Ion (test code = POC A Ca Ion) 1.08 1.16-1.30 L [facility] CenterIymcerjLWTIJGNVI0797-74-88 13:59:00 Test Item Value Reference Range Interpretation Comments POC A K (test code = POC A K) 4.4 3.5-5.1 N [facility] CenterOfzefkaKXOOJDKJP5010-19-44 13:59:00 Test Item Value Reference Range Interpretation Comments POC A Source (test code = POC A Source) ART [facility] CenterPrubsxoHZQVBJCUP7746-02-49 13:59:00 Test Item Value Reference Range Interpretation Comments POC A Temp (test code = POC A Temp) 37.0 [facility] CenterXxtoeejXYACOLTSI3678-88-08 13:59:00 Test Item Value Reference Range Interpretation Comments POC A Na (test code = POC A Na) 134 135-145 L [facility] CenterAfhesotYQPKGZFHN3980-65-82 13:59:00 Test Item Value Reference Range Interpretation Comments POC A Hct (test code = POC A Hct) 34.0 36.0-48.0 L [facility] CenterYjihamjOCECOEWIE3693-32-27 13:59:00 Test Item Value Reference Range Interpretation Comments POC A PO2 (test code = POC A PO2) 317 80-100 H [facility] CenterJmftdujGKHJKOMAF6977-76-13 13:59:00 Test Item Value Reference Range Interpretation Comments POC A pH (test code = POC A pH) 7.45 7.35-7.45 N [facility] CMVEZUM8189-99-60 11:15:00 Test Item Value Reference Range Interpretation Comments Antibody Scrn (test Negative (03/27/2012 N code = Antibody Scrn) 06:15:00) [facility] LIGCGQK4650-93-64 11:15:00 Test Item Value Reference Range Interpretation Comments ABO/Rh (test code = ABO/Rh) A NEG [facility] IQCGEFM7075-18-76 11:15:00 Test Item Value Reference Range Interpretation Comments Antibody Scrn (test Negative (03/27/2012 N code = Antibody Scrn) 06:15:00) [facility] QBNVAAD6740-25-68 11:15:00 Test Item Value Reference Range Interpretation Comments ABO/Rh (test code = ABO/Rh) A NEG [facility] XYTZPST6304-04-60 11:15:00 Test Item Value Reference Range Interpretation Comments Antibody Scrn (test Negative (03/27/2012 N code = Antibody Scrn) 06:15:00) [facility] NXLQYSW6718-02-28 11:15:00 Test Item Value Reference Range Interpretation Comments ABO/Rh (test code = ABO/Rh) A NEG [facility] QIICYAM0554-43-65 11:15:00 Test Item Value Reference Range Interpretation Comments Antibody Scrn (test Negative (03/27/2012 N code = Antibody Scrn) 06:15:00) [facility] ZSLYROB4945-40-27 11:15:00 Test Item Value Reference Range Interpretation Comments ABO/Rh (test code = ABO/Rh) A [facility]EdyqcayPRBEJQYOO7576-32-43 10:39:00 Test Item Value Reference Range Interpretation Comments U Preg (test code = U Negative (03/27/2012 N Preg) 05:39:00) [facility]lakeUnnstnuVAJAUMBBC6473-60-27 10:39:00 Test Item Value Reference Range Interpretation Comments U Preg (test code = U Negative (03/27/2012 N Preg) 05:39:00) [facility] SiylfyvAWQGHEOGJ7904-03-49 10:39:00 Test Item Value Reference Range Interpretation Comments U Preg (test code = U Negative (03/27/2012 N Preg) 05:39:00) [facility] CenterMgpoauxJRTFWZTGY7469-27-49 10:39:00 Test Item Value Reference Range Interpretation Comments U Preg (test code = U Negative (03/27/2012 N Preg) 05:39:00) [facility] CenterZxcmaulKCBUPPRWL7539-71-93 19:55:00 Test Item Value Reference Range Interpretation Comments AGAP (test code = AGAP) 14.5 10.0-20.0 N [facility] CenterAqmbrjdHPLCKBZRF1530-49-13 19:55:00 Test Item Value Reference Range Interpretation Comments BUN (test code = BUN) 9 7-22 N [facility] CenterGfbufznTSNCCYTPH2679-02-52 19:55:00 Test Item Value Reference Range Interpretation Comments Glucose Lvl (test code = Glucose Lvl) 83 70-99 N [facility] CenterXtqazhjLRVWNCMRW4382-56-02 19:55:00 Test Item Value Reference Range Interpretation Comments Creatinine Lvl (test code = Creatinine 1.1 0.5-1.4 N Lvl) [facility] CenterCklszktNUHKPEICQ0598-40-64 19:55:00 Test Item Value Reference Range Interpretation Comments Potassium Lvl (test code = Potassium 4.5 3.5-5.1 N Lvl) [facility] CenterYcsmamyMKDQDXVFY2555-85-01 19:55:00 Test Item Value Reference Range Interpretation Comments Sodium Lvl (test code = Sodium Lvl) 143 135-145 N [facility] CenterVootxjlCFIRBVAAI2716-20-01 19:55:00 Test Item Value Reference Range Interpretation Comments Chloride Lvl (test code = Chloride Lvl) 104 95-109 N [facility] CenterAerexukCZSTOMKML5762-62-58 19:55:00 Test Item Value Reference Range Interpretation Comments Calcium Lvl (test code = Calcium Lvl) 9.2 8.5-10.5 N [facility] CenterQmrqainVXSFDHBTW6100-35-99 19:55:00 Test Item Value Reference Range Interpretation Comments CO2 (test code = CO2) 29 24-32 N [facility]SbjlavtVVJGBUHPFB6376-11-66 19:55:00 Test Item Value Reference Range Interpretation Comments Platelet (test code = Platelet) 286 133-450 N [facility] HospitalOcyeusiXQMDFVSRER3134-34-22 19:55:00 Test Item Value Reference Range Interpretation Comments MPV (test code = MPV) 8.9 7.4-10.4 N [facility] HospitalLtobuezIHGDJFHFTB9123-71-52 19:55:00 Test Item Value Reference Range Interpretation Comments MCHC (test code = MCHC) 31.3 32.0-36.0 L [facility] HospitalCimercaJBPCSFLTEQ1094-66-65 19:55:00 Test Item Value Reference Range Interpretation Comments MCH (test code = MCH) 24.8 pg 27.0-31.0 L [facility] HospitalEnuiunaUIFTDKJJCZ1290-66-15 19:55:00 Test Item Value Reference Range Interpretation Comments Hct (test code = Hct) 39.3 36.0-48.0 N [facility] HospitalGyjqdhcFMBTQMDPTB2721-16-07 19:55:00 Test Item Value Reference Range Interpretation Comments Hgb (test code = Hgb) 12.3 12.0-16.0 N [facility] HospitalIrprwjaNOELRJSXGH6842-58-81 19:55:00 Test Item Value Reference Range Interpretation Comments MCV (test code = MCV) 79.2 81.0-99.0 L [facility] HospitalNdwbhtfYLRXIYEYJS1041-90-59 19:55:00 Test Item Value Reference Range Interpretation Comments RDW (test code = RDW) 15.7 11.5-14.5 H [facility] HospitalLizajbkFOJZQLNWLK5692-78-71 19:55:00 Test Item Value Reference Range Interpretation Comments WBC (test code = WBC) 5.8 3.7-10.4 N [facility] HospitalDekqutbSDMBRRHBKU3712-50-64 19:55:00 Test Item Value Reference Range Interpretation Comments RBC (test code = RBC) 4.96 4.20-5.40 N [facility] HospitalCzljqeiONJVQQNIYI6763-83-60 19:55:00 Test Item Value Reference Range Interpretation Comments INR (test code = INR) 1.10 0.85-1.17 N [place] [address]-09-25 19:55:00 Test Item Value Reference Range Interpretation Comments PT (test code = PT) 14.4 s 12.0-14.7 N [facility] HospitalRxikqcuZVGLAEERGF1050-76-16 19:55:00 Test Item Value Reference Range Interpretation Comments PTT (test code = PTT) 32.3 s 22.9-35.8 N [facility] HospitalMrmvcheGRHWHSSGXY6985-09-12 19:55:00 Test Item Value Reference Range Interpretation Comments Segs-Bands # (test code = Segs-Bands #) 3.2 1.5-8.1 N [facility] HospitalDxwluzqQXIPZOFJZB5824-12-74 19:55:00 Test Item Value Reference Range Interpretation Comments Basophils (test code = 0.9 See_Comment N [Aut omated message] The Basophils) system which ge nerated this result tra nsmitted reference range : <=1.0. The reference r nan was not used to int erpret this result as normal/abnormal . [facility] HospitalDshbugoZHJSDVKVUS6624-38-86 19:55:00 Test Item Value Reference Range Interpretation Comments Eosinophils # (test code 0.3 See_Comment N [A utomated message] The = Eosinophils #) system whic h generated this result tra nsmitted reference range : <=0.5. The reference r nan was not used to int erpret this result as normal/abnormal . [facility] HospitalQsxzyrfLSDTAYWXYF0612-56-32 19:55:00 Test Item Value Reference Range Interpretation Comments Basophils # (test code 0.1 See_Comment N [Aut omated message] The = Basophils #) system which generated this result tra nsmitted reference range : <=0.2. The reference r nan was not used to int erpret this result as normal/abnormal . [facility] HospitalAdsquexNVKPOFEYXH6276-08-94 19:55:00 Test Item Value Reference Range Interpretation Comments Lymphocytes # (test code = Lymphocytes 1.8 1.0-5.5 N #) [facility] HospitalHscyyqqBXMXIFCLLI3223-21-94 19:55:00 Test Item Value Reference Range Interpretation Comments Monocytes # (test code 0.4 See_Comment N [Aut omated message] The = Monocytes #) system which generated this result tra nsmitted reference range : <=0.8. The reference r nan was not used to int erpret this result as normal/abnormal . [facility] HospitalHvxgeziYIPTBVTEON8574-56-65 19:55:00 Test Item Value Reference Range Interpretation Comments Segs (test code = Segs) 55.4 45.0-75.0 N [facility] HospitalGitzkwgOKQUOJBGKB9157-85-15 19:55:00 Test Item Value Reference Range Interpretation Comments Monocytes (test code = Monocytes) 7.2 2.0-12.0 N [facility] HospitalFtfalqfAMHEXPUJSY3239-53-72 19:55:00 Test Item Value Reference Range Interpretation Comments Lymphocytes (test code = Lymphocytes) 30.5 20.0-40.0 N [facility] HospitalKpjrvppZIBODDUJQC8793-19-74 19:55:00 Test Item Value Reference Range Interpretation Comments Eosinophils (test code = 6.0 See_Comment H [A utomated message] The Eosinophils) system which ge nerated this result tra nsmitted reference range : <=4.0. The reference r nan was not used to int erpret this result as normal/abnormal . [facility] CenterXnzslfvGFDTYRZGE3836-80-63 19:55:00 Test Item Value Reference Range Interpretation Comments AGAP (test code = AGAP) 14.5 10.0-20.0 N [facility] CenterYfbmdwiGUZEPZKGL6638-98-23 19:55:00 Test Item Value Reference Range Interpretation Comments BUN (test code = BUN) 9 7-22 N [facility] CenterWgzygddEAAWYEJJN7546-18-38 19:55:00 Test Item Value Reference Range Interpretation Comments Glucose Lvl (test code = Glucose Lvl) 83 70-99 N [facility] CenterJpjfhlkAPTSGBRHF0661-98-41 19:55:00 Test Item Value Reference Range Interpretation Comments Creatinine Lvl (test code = Creatinine 1.1 0.5-1.4 N Lvl) [facility] CenterVyydpqcWVPCVUHQU3370-50-89 19:55:00 Test Item Value Reference Range Interpretation Comments Potassium Lvl (test code = Potassium 4.5 3.5-5.1 N Lvl) [facility] CenterTramtdqFVQQDGKVS9217-07-15 19:55:00 Test Item Value Reference Range Interpretation Comments Sodium Lvl (test code = Sodium Lvl) 143 135-145 N [facility] CenterLvpngqsVMQKYGERS7201-98-01 19:55:00 Test Item Value Reference Range Interpretation Comments Chloride Lvl (test code = Chloride Lvl) 104 95-109 N [facility] CenterAzhltdsVBCALCIGQ8449-73-65 19:55:00 Test Item Value Reference Range Interpretation Comments Calcium Lvl (test code = Calcium Lvl) 9.2 8.5-10.5 N [facility] CenterNhtbnfuVNDUKNYOU0495-60-36 19:55:00 Test Item Value Reference Range Interpretation Comments CO2 (test code = CO2) 29 24-32 N [facility] HospitalEcjzaztQMQGXGYTOH6663-51-34 19:55:00 Test Item Value Reference Range Interpretation Comments Platelet (test code = Platelet) 286 133-450 N [facility] HospitalCieaqfjMMAXDQDSHV0964-37-72 19:55:00 Test Item Value Reference Range Interpretation Comments MPV (test code = MPV) 8.9 7.4-10.4 N [facility] HospitalGfvsmbxRMNJMCFSVH5978-01-52 19:55:00 Test Item Value Reference Range Interpretation Comments MCHC (test code = MCHC) 31.3 32.0-36.0 L [facility] HospitalDbhhqvoKEVOXXAOGJ1560-39-27 19:55:00 Test Item Value Reference Range Interpretation Comments MCH (test code = MCH) 24.8 pg 27.0-31.0 L [facility] HospitalYinldbhFJSBWOOVFV0719-71-92 19:55:00 Test Item Value Reference Range Interpretation Comments Hct (test code = Hct) 39.3 36.0-48.0 N [facility] HospitalTwsesspCDZTDSGXNN1011-24-05 19:55:00 Test Item Value Reference Range Interpretation Comments Hgb (test code = Hgb) 12.3 12.0-16.0 N [facility] HospitalGrkpcrpMCELRPNGCQ1511-58-36 19:55:00 Test Item Value Reference Range Interpretation Comments MCV (test code = MCV) 79.2 81.0-99.0 L [facility] HospitalFrgxtssLVYOLBDQWE3048-68-85 19:55:00 Test Item Value Reference Range Interpretation Comments RDW (test code = RDW) 15.7 11.5-14.5 H [facility] HospitalMzhcajdNWNZTYHMWH7766-82-50 19:55:00 Test Item Value Reference Range Interpretation Comments WBC (test code = WBC) 5.8 3.7-10.4 N [facility] HospitalTfvcnemNADQJOEMED0077-91-29 19:55:00 Test Item Value Reference Range Interpretation Comments RBC (test code = RBC) 4.96 4.20-5.40 N [facility] HospitalIlrvcwzCKDEKOHPYW4704-53-95 19:55:00 Test Item Value Reference Range Interpretation Comments INR (test code = INR) 1.10 0.85-1.17 N [facility] HospitalRqyjpxyUJXYYJSWWJ1994-61-46 19:55:00 Test Item Value Reference Range Interpretation Comments PT (test code = PT) 14.4 s 12.0-14.7 N [facility] HospitalZmffairYKOVPEWRSN2321-25-57 19:55:00 Test Item Value Reference Range Interpretation Comments PTT (test code = PTT) 32.3 s 22.9-35.8 N [place] [address]-09-25 19:55:00 Test Item Value Reference Range Interpretation Comments Segs-Bands # (test code = Segs-Bands #) 3.2 1.5-8.1 N [facility] HospitalPcbgsxoTZAFHCXNEU6734-28-77 19:55:00 Test Item Value Reference Range Interpretation Comments Basophils (test code = 0.9 See_Comment N [Aut omated message] The Basophils) system which ge nerated this result tra nsmitted reference range : <=1.0. The reference r nan was not used to int erpret this result as normal/abnormal . [facility] HospitalUdgmqsbVOMRKHSXYO1489-69-25 19:55:00 Test Item Value Reference Range Interpretation Comments Eosinophils # (test code 0.3 See_Comment N [A utomated message] The = Eosinophils #) system whic h generated this result tra nsmitted reference range : <=0.5. The reference r nan was not used to int erpret this result as normal/abnormal . [facility] HospitalPnfmexdNPEBGXUTGT5065-17-51 19:55:00 Test Item Value Reference Range Interpretation Comments Basophils # (test code 0.1 See_Comment N [Aut omated message] The = Basophils #) system which generated this result tra nsmitted reference range : <=0.2. The reference r nan was not used to int erpret this result as normal/abnormal . [facility] HospitalDzepmgoZXFLYNHEYB6732-51-57 19:55:00 Test Item Value Reference Range Interpretation Comments Lymphocytes # (test code = Lymphocytes 1.8 1.0-5.5 N #) [facility] HospitalOkosrcqMOWUPLHFCM5545-23-94 19:55:00 Test Item Value Reference Range Interpretation Comments Monocytes # (test code 0.4 See_Comment N [Aut omated message] The = Monocytes #) system which generated this result tra nsmitted reference range : <=0.8. The reference r nan was not used to int erpret this result as normal/abnormal . [facility] HospitalKptuciwYUYJCHGEHW0848-70-92 19:55:00 Test Item Value Reference Range Interpretation Comments Segs (test code = Segs) 55.4 45.0-75.0 N [facility] HospitalTkzqdigBPLRKYEPZJ2635-59-23 19:55:00 Test Item Value Reference Range Interpretation Comments Monocytes (test code = Monocytes) 7.2 2.0-12.0 N [facility] HospitalBoyuzfpCLUNWSNGUS1565-40-80 19:55:00 Test Item Value Reference Range Interpretation Comments Lymphocytes (test code = Lymphocytes) 30.5 20.0-40.0 N [facility] HospitalEflnhxvEZDDNAUZYC7220-27-41 19:55:00 Test Item Value Reference Range Interpretation Comments Eosinophils (test code = 6.0 See_Comment H [A utomated message] The Eosinophils) system which ge nerated this result tra nsmitted reference range : <=4.0. The reference r nan was not used to int erpret this result as normal/abnormal . [facility] CenterAbdybyjVUWSYSZRC4351-88-84 19:55:00 Test Item Value Reference Range Interpretation Comments AGAP (test code = AGAP) 14.5 10.0-20.0 N [facility] CenterLghjpjlHRGEAQONP9054-73-49 19:55:00 Test Item Value Reference Range Interpretation Comments BUN (test code = BUN) 9 7-22 N [facility] CenterFmnpcyfDOCECWYJE5547-77-05 19:55:00 Test Item Value Reference Range Interpretation Comments Glucose Lvl (test code = Glucose Lvl) 83 70-99 N [facility] CenterOinyncpDMNSVJWUG7085-03-13 19:55:00 Test Item Value Reference Range Interpretation Comments Creatinine Lvl (test code = Creatinine 1.1 0.5-1.4 N Lvl) [facility] CenterIzlbbvbPBSEYJPMU8434-10-46 19:55:00 Test Item Value Reference Range Interpretation Comments Potassium Lvl (test code = Potassium 4.5 3.5-5.1 N Lvl) [facility] CenterRyaeateABZVOOLFD0758-30-39 19:55:00 Test Item Value Reference Range Interpretation Comments Sodium Lvl (test code = Sodium Lvl) 143 135-145 N [facility] CenterOmxeelvTRLQTCHWC9936-30-03 19:55:00 Test Item Value Reference Range Interpretation Comments Chloride Lvl (test code = Chloride Lvl) 104 95-109 N [facility] CenterEdbzbduFPBYTRIIR2973-41-10 19:55:00 Test Item Value Reference Range Interpretation Comments Calcium Lvl (test code = Calcium Lvl) 9.2 8.5-10.5 N [facility] CenterOypdovfPQJZQFCXC0685-91-40 19:55:00 Test Item Value Reference Range Interpretation Comments CO2 (test code = CO2) 29 24-32 N [facility] HospitalRfqkhmxXREIFLIWOQ3319-46-92 19:55:00 Test Item Value Reference Range Interpretation Comments Platelet (test code = Platelet) 286 133-450 N [facility] HospitalN[id number] 19:55:00 Test Item Value Reference Range Interpretation Comments MPV (test code = MPV) 8.9 7.4-10.4 N [facility] HospitalFhjzugtOKIJAMSOOM6830-67-75 19:55:00 Test Item Value Reference Range Interpretation Comments MCHC (test code = MCHC) 31.3 32.0-36.0 L [facility] HospitalGrkpvkuJCIQTUSSJR3451-91-13 19:55:00 Test Item Value Reference Range Interpretation Comments MCH (test code = MCH) 24.8 pg 27.0-31.0 L [facility] HospitalMprzkilLRTBOYXECR1891-81-40 19:55:00 Test Item Value Reference Range Interpretation Comments Hct (test code = Hct) 39.3 36.0-48.0 N [facility] HospitalEpebuxuIBSMAJWTQJ6135-16-50 19:55:00 Test Item Value Reference Range Interpretation Comments Hgb (test code = Hgb) 12.3 12.0-16.0 N [facility] HospitalAtnsdzeDKIBILOJFG4047-23-96 19:55:00 Test Item Value Reference Range Interpretation Comments MCV (test code = MCV) 79.2 81.0-99.0 L [facility] HospitalYppymqcDWSAUDTJUA3317-14-60 19:55:00 Test Item Value Reference Range Interpretation Comments RDW (test code = RDW) 15.7 11.5-14.5 H [facility] HospitalXgklpmeTHJRXZTQMB7421-06-46 19:55:00 Test Item Value Reference Range Interpretation Comments WBC (test code = WBC) 5.8 3.7-10.4 N [facility] HospitalIscloikLOATDOPRYW0485-41-01 19:55:00 Test Item Value Reference Range Interpretation Comments RBC (test code = RBC) 4.96 4.20-5.40 N [facility] HospitalTuubylaJJBLPIKVHW3775-83-38 19:55:00 Test Item Value Reference Range Interpretation Comments INR (test code = INR) 1.10 0.85-1.17 N [facility] HospitalXozwguqQPGTZVREUH0993-53-13 19:55:00 Test Item Value Reference Range Interpretation Comments PT (test code = PT) 14.4 s 12.0-14.7 N [facility] HospitalIrailhnBVVXGYIPQN4353-40-38 19:55:00 Test Item Value Reference Range Interpretation Comments PTT (test code = PTT) 32.3 s 22.9-35.8 N [facility] HospitalUyjxudwVXXDEIIYGZ1392-25-97 19:55:00 Test Item Value Reference Range Interpretation Comments Segs-Bands # (test code = Segs-Bands #) 3.2 1.5-8.1 N [facility] HospitalRzwtruiKZEFNAALEF0604-31-44 19:55:00 Test Item Value Reference Range Interpretation Comments Basophils (test code = 0.9 See_Comment N [Aut omated message] The Basophils) system which ge nerated this result tra nsmitted reference range : <=1.0. The reference r nan was not used to int erpret this result as normal/abnormal . [facility] HospitalGpsdueyWCCMGDPXNK3691-01-08 19:55:00 Test Item Value Reference Range Interpretation Comments Eosinophils # (test code 0.3 See_Comment N [A utomated message] The = Eosinophils #) system whic h generated this result tra nsmitted reference range : <=0.5. The reference r nan was not used to int erpret this result as normal/abnormal . [facility] HospitalJoksfngMQOQZFVOYC2601-90-09 19:55:00 Test Item Value Reference Range Interpretation Comments Basophils # (test code 0.1 See_Comment N [Aut omated message] The = Basophils #) system which generated this result tra nsmitted reference range : <=0.2. The reference r nan was not used to int erpret this result as normal/abnormal . [facility] HospitalIpmkuoyBQYTMIOTKZ8072-64-14 19:55:00 Test Item Value Reference Range Interpretation Comments Lymphocytes # (test code = Lymphocytes 1.8 1.0-5.5 N #) [facility] HospitalYxfjkltIBXNVQCWOQ4354-59-36 19:55:00 Test Item Value Reference Range Interpretation Comments Monocytes # (test code 0.4 See_Comment N [Aut omated message] The = Monocytes #) system which generated this result tra nsmitted reference range : <=0.8. The reference r nan was not used to int erpret this result as normal/abnormal . [facility] HospitalGtuqjfoRAATVDZYCT8967-30-48 19:55:00 Test Item Value Reference Range Interpretation Comments Segs (test code = Segs) 55.4 45.0-75.0 N [facility] HospitalFujmgfiNDRQGKBCLF3024-31-55 19:55:00 Test Item Value Reference Range Interpretation Comments Monocytes (test code = Monocytes) 7.2 2.0-12.0 N [facility] HospitalAxmekjeOCWVUGURHQ5687-82-66 19:55:00 Test Item Value Reference Range Interpretation Comments Lymphocytes (test code = Lymphocytes) 30.5 20.0-40.0 N [facility] HospitalBzpeizgVWCTMMKMRX9008-61-66 19:55:00 Test Item Value Reference Range Interpretation Comments Eosinophils (test code = 6.0 See_Comment H [A utomated message] The Eosinophils) system which ge nerated this result tra nsmitted reference range : <=4.0. The reference r nan was not used to int erpret this result as normal/abnormal . [facility]QckszbbDARUTWZCO9349-24-57 19:55:00 Test Item Value Reference Range Interpretation Comments AGAP (test code = AGAP) 14.5 10.0-20.0 N [facility] CenterIenydsmJCXTSLYPY9797-96-82 19:55:00 Test Item Value Reference Range Interpretation Comments BUN (test code = BUN) 9 7-22 N [facility] CenterDwzdqicVJDAZOCPN6716-68-76 19:55:00 Test Item Value Reference Range Interpretation Comments Glucose Lvl (test code = Glucose Lvl) 83 70-99 N [facility] CenterNzhkzjfSZFNSAKPV3674-31-21 19:55:00 Test Item Value Reference Range Interpretation Comments Creatinine Lvl (test code = Creatinine 1.1 0.5-1.4 N Lvl) [facility] CenterSdkbakwFDDHVNGOS6682-39-39 19:55:00 Test Item Value Reference Range Interpretation Comments Potassium Lvl (test code = Potassium 4.5 3.5-5.1 N Lvl) [facility] CenterZxqsjnpCBBNRUYTK1051-98-09 19:55:00 Test Item Value Reference Range Interpretation Comments Sodium Lvl (test code = Sodium Lvl) 143 135-145 N [facility] CenterQhngexaVVRSCWMAM3336-03-00 19:55:00 Test Item Value Reference Range Interpretation Comments Chloride Lvl (test code = Chloride Lvl) 104 95-109 N [facility] CenterLlbpisdOXBEOCDKR6578-26-27 19:55:00 Test Item Value Reference Range Interpretation Comments Calcium Lvl (test code = Calcium Lvl) 9.2 8.5-10.5 N [facility] CenterRlibnecYFFAFGZYO9349-73-75 19:55:00 Test Item Value Reference Range Interpretation Comments CO2 (test code = CO2) 29 24-32 N [facility] HospitalLksfeozDABBEXQJBY6981-29-16 19:55:00 Test Item Value Reference Range Interpretation Comments Platelet (test code = Platelet) 286 133-450 N [facility] HospitalRafpcifHBGFLKDUJY5102-00-83 19:55:00 Test Item Value Reference Range Interpretation Comments MPV (test code = MPV) 8.9 7.4-10.4 N [facility] HospitalNsusdjyGWIRHJQXEO8518-53-06 19:55:00 Test Item Value Reference Range Interpretation Comments MCHC (test code = MCHC) 31.3 32.0-36.0 L [facility] HospitalKqaleicRWLPMLDQRZ7656-65-39 19:55:00 Test Item Value Reference Range Interpretation Comments MCH (test code = MCH) 24.8 pg 27.0-31.0 L [facility] HospitalNissbblISRJLZGUUF5325-79-47 19:55:00 Test Item Value Reference Range Interpretation Comments Hct (test code = Hct) 39.3 36.0-48.0 N [facility] HospitalOklgxdhTLJKYYQXPM1846-53-20 19:55:00 Test Item Value Reference Range Interpretation Comments Hgb (test code = Hgb) 12.3 12.0-16.0 N [facility] HospitalWqeiewhCOUOUYHWUE1541-55-12 19:55:00 Test Item Value Reference Range Interpretation Comments MCV (test code = MCV) 79.2 81.0-99.0 L [facility] HospitalFytwhjePIIYLDHZZT0230-33-99 19:55:00 Test Item Value Reference Range Interpretation Comments RDW (test code = RDW) 15.7 11.5-14.5 H [facility] HospitalIgfaoccJRBAPOAIFX3693-75-88 19:55:00 Test Item Value Reference Range Interpretation Comments WBC (test code = WBC) 5.8 3.7-10.4 N [facility] HospitalKolezzxLJDWGHOKQT2403-13-99 19:55:00 Test Item Value Reference Range Interpretation Comments RBC (test code = RBC) 4.96 4.20-5.40 N [facility] HospitalTcaxovoRVHVLNDZPP2665-89-02 19:55:00 Test Item Value Reference Range Interpretation Comments INR (test code = INR) 1.10 0.85-1.17 N [facility] HospitalKzrcplsKFNBOSAVWG0485-52-37 19:55:00 Test Item Value Reference Range Interpretation Comments PT (test code = PT) 14.4 s 12.0-14.7 N [facility] HospitalKlwkryeECCNBZRRZY6417-20-82 19:55:00 Test Item Value Reference Range Interpretation Comments PTT (test code = PTT) 32.3 s 22.9-35.8 N [facility] HospitalPuixltxTVXQPCURRD9038-20-81 19:55:00 Test Item Value Reference Range Interpretation Comments Segs-Bands # (test code = Segs-Bands #) 3.2 1.5-8.1 N [facility] HospitalCazegxoQYUWCEGHTG8830-07-54 19:55:00 Test Item Value Reference Range Interpretation Comments Basophils (test code = 0.9 See_Comment N [Aut omated message] The Basophils) system which ge nerated this result tra nsmitted reference range : <=1.0. The reference r nan was not used to int erpret this result as normal/abnormal . [facility] HospitalWtxzcqeJFYOHYSFTY7199-96-46 19:55:00 Test Item Value Reference Range Interpretation Comments Eosinophils # (test code 0.3 See_Comment N [A utomated message] The = Eosinophils #) system whic h generated this result tra nsmitted reference range : <=0.5. The reference r nan was not used to int erpret this result as normal/abnormal . [facility] HospitalWphvaptRQVLPSKVPP8024-22-82 19:55:00 Test Item Value Reference Range Interpretation Comments Basophils # (test code 0.1 See_Comment N [Aut omated message] The = Basophils #) system which generated this result tra nsmitted reference range : <=0.2. The reference r nan was not used to int erpret this result as normal/abnormal . [facility] HospitalLlopeenEYYLZFIAIN2094-84-84 19:55:00 Test Item Value Reference Range Interpretation Comments Lymphocytes # (test code = Lymphocytes 1.8 1.0-5.5 N #) [facility] HospitalMemmqkyWNKARRTQBK0598-20-64 19:55:00 Test Item Value Reference Range Interpretation Comments Monocytes # (test code 0.4 See_Comment N [Aut omated message] The = Monocytes #) system which generated this result tra nsmitted reference range : <=0.8. The reference r nan was not used to int erpret this result as normal/abnormal . [facility] HospitalUgbmboiBFCXYMPRXJ0161-23-86 19:55:00 Test Item Value Reference Range Interpretation Comments Segs (test code = Segs) 55.4 45.0-75.0 N [facility] HospitalLsnltgnRKRBGXTOAB8766-55-14 19:55:00 Test Item Value Reference Range Interpretation Comments Monocytes (test code = Monocytes) 7.2 2.0-12.0 N [facility] HospitalJnaqgzyVAGNYZDWEU5449-43-13 19:55:00 Test Item Value Reference Range Interpretation Comments Lymphocytes (test code = Lymphocytes) 30.5 20.0-40.0 N [facility] HospitalKamiezhRRGWJAKNCN0679-08-82 19:55:00 Test Item Value Reference Range Interpretation Comments Eosinophils (test code = 6.0 See_Comment H [A utomated message] The Eosinophils) system which ge nerated this result tra nsmitted reference range : <=4.0. The reference r nan was not used to int erpret this result as normal/abnormal . [facility]
[2022-07-02] MEDS ORDERED: ONDANSETRON 4 MG/2 ML VIAL ONE ×2 (21:14→23:43)
[2022-07-02] MEDS ORDERED: NA CHLORIDE 0.9% 1,000 ML ONE (21:14)
[2022-07-02] MEDS ORDERED: MORPHINE 4 MG/ML SYR ONE (21:14)
[2022-07-02 21:33] LABS: Urine Blood Negative (Negative); Urine Glucose Negative (Negative); Urine Protein Negative (Negative); Urine pH 5.5 (5.0-7.0)
[2022-07-02 21:49] LABS: Urine Bacteria None Seen /HPF (<20); Urine Mucus Slight /HPF (None Seen); Urine RBC <5 /HPF (None Seen)
[2022-07-02 21:52] LABS: Hematocrit 34.9 % (36.0-45.0); Lymphocytes % 27.7 % (15.3-44.8); MCV 72.1 fL (80-100); RBC Red Blood Cell Count 4.84 M/uL (3.86-4.86)
[2022-07-02 22:06] LABS: Albumin 3.3 g/dL (3.4-5.0); Bilirubin Total 0.3 mg/dL (0.2-1.0); Troponin High Sensitivity 7.7 pg/mL (<58.9)
[2022-07-02 22:07] LABS: Magnesium 1.8 mg/dL (1.6-2.4); Potassium 4.6 mmol/L (3.5-5.1)
--- NOTE | 2022-07-02 22:39 | RAD REPORT ---
EXAM DESCRIPTION: CT - Abdomen Pelvis W Contrast - 07/02/2022 10:31 pm CLINICAL HISTORY: Abdominal pain, acute, nonlocalized COMPARISON: <Comparisons> TECHNIQUE: Biphasic, helical CT imaging of the abdomen and pelvis was performed following 100 ml non -ionic IV contrast. Oral contrast: No. All CT scans are performed using dose optimization technique as appropriate and may include automated exposure control or mA/KV adjustment according to patient size. FINDINGS: No suspicious findings in the lung bases. The liver, spleen, and pancreas show no suspicious findings. Gallbladder and biliary tree are also wi thout suspicious finding. Symmetric renal function is seen with no hydronephrosis or suspicious renal mass. No pyelonephritis o r acute parenchymal process. No bladder abnormalities. No adrenal abnormalities. Multi fibroid uterus is present. No suspicious ovarian finding. No stomach or small bowel abnormality. No appendicitis. Mildly large stool volume throughout the colo n. There is a 4 centimeter long segment of the distal descending colon showing circumferential wall t hickening. There is mild stranding in the adjacent fat. Diverticulosis is minimal. No free air, free fluid or inflammatory stranding. No hernia, mass or bulky lymphadenopathy. No suspicious bony findings. IMPRESSION: Mild diverticulitis involving the distal portion of the descending colon. No abscess, extraluminal air or other complicating factor. Multi fibroid uterus.
[2022-07-02] MEDS ORDERED: HYDROMORPHONE HCL 1 MG/ML INJ ONE (23:00)
[2022-07-02] MEDS ORDERED: METRONIDAZOLE 500mg IVPB 500 MG/100 ML BAG IV ONE (23:19)
[2022-07-02] MEDS ORDERED: CEFTRIAXONE 1000 MG/VIAL ONE (23:19)
--- NOTE | 2022-07-03 00:27 | EDPHYS ---
Physician Documentation [facility] Name: Blaze Aragon Age: 41 yrs Sex: Female : 1980 Arrival Date: 07/02/2022 Time: 20:52 Bed 5 Private MD: ED Physician Marcella Cedeno HPI: 07/02 21:06 This 41 yrs old Black Female presents to ER via Wheelchair with complaints of Abdominal sd2 Cramping. 21:06 41-year-old female with a history of Crohn's disease presents with chief complaint of sd2 epigastric, left lower quadrant and left flank pain that initially started yesterday. She states it was initially just nagging and has progressively worsened throughout the day today. She did take some Advil at home yesterday with minimal relief. She denies any associated fevers, vomiting, diarrhea, constipation or urinary symptoms. She denies any chance of and has had a previous tubal ligation. She reports this does not feel like any of her previous Crohn's flares and she is not currently on any medication for her Crohn's disease.. 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 - Social history:: Smoking status: Patient denies any tobacco usage or history of. ROS: 21:06 Constitutional: Negative for fever, chills, and weight loss, Eyes: Negative for injury, sd2 pain, redness, and discharge, Cardiovascular: Negative for chest pain, palpitations, and edema, Respiratory: Negative for shortness of breath, cough, wheezing. 21:06 : Negative for dysuria, urinary frequency, hesitancy, urgency and hematuria. MS/Extremity: Negative for injury and deformity, Skin: Negative for injury, rash, and discoloration, Neuro: Negative for headache, numbness and tingling. 21:06 Abdomen/GI: Positive for abdominal pain, Negative for nausea, vomiting, and diarrhea, constipation. 21:06 Back: Positive for pain at rest, pain with movement, flank pain, Negative for injury or acute deformity. Exam: 21:06 Constitutional: This is a well developed, well nourished patient who is awake, alert, sd2 and in moderate distress 2/2 pain. Head/Face: Normocephalic, atraumatic. Eyes: EOMI, normal conjunctiva bilaterally Chest/axilla: Normal chest wall appearance and motion. Nontender with no deformity. Cardiovascular: Regular rate and rhythm with a normal S1 and S2. No gallops, murmurs, or rubs. 2+ distal pulses. Respiratory: Lungs have equal breath sounds bilaterally, clear to auscultation and percussion. No rales, rhonchi or wheezes noted. No increased work of breathing, no retractions or nasal flaring. Abdomen/GI: Soft, abdominal distention present with TTP in the epigastrum, LLQ and L flank area, no rebound or guarding Skin: Warm, dry with normal turgor. Normal color with no rashes, no lesions, and no evidence of cellulitis. MS/ Extremity: Pulses equal, no cyanosis. Neurovascular intact. Full, normal range of motion. Ambulatory without difficulty. Psych: Awake, alert, with orientation to person, place and time. Behavior, mood, and affect are within normal limits. 21:30 ECG was reviewed by the Attending Physician. NSR, rate 88, no STEMI criteria sd2 Vital Signs: 20:55 BP 131 / 90; Pulse 105; Resp 20; Temp 98.7; Pulse Ox 98% ; Weight 107.5 kg; Height 5 kb3 ft. 2 in. (157.48 cm); Pain 9/10; 21:36 BP 124 / 65; Pulse 94; Pulse Ox 97% on R/A; aa9 23:02 BP 125 / 74; Pulse 86; Resp 21 S; Pulse Ox 97% on R/A; aa9 23:28 BP 119 / 77; Pulse 94; Resp 19 S; Pulse Ox 95% ; aa9 07/03 00:23 BP 121 / 74; Pulse 83; Resp 19; Pulse Ox 98% ; kd3 07/02 20:55 Body Mass Index 43.35 (107.50 kg, 157.48 cm) kb3 MDM: 07/02 21:01 Patient medically screened. sd2 21:06 Differential diagnosis: Gastritis, cholecystitis, pancreatitis, SBO, diverticulitis, sd2 kidney stone, appendicitis, UTI, dehydration, electrolyte abnormality among others. Data reviewed: vital signs, nurses notes. 07/03 00:25 Data reviewed: lab test result(s), EKG, radiologic studies. Counseling: I had a sd2 detailed discussion with the patient and/or guardian regarding: the historical points, exam findings, and any diagnostic results supporting the discharge/admit diagnosis, lab results, radiology results, the need for outpatient follow up, to return to the emergency department if symptoms worsen or persist or if there are any questions or concerns that arise at home. ED course: Labs and imaging reviewed. Consistent with acute diverticulitis. Pain controlled. Pt to be discharged home with oral abx, pain and nausea medications and will follow up outpatient with GI and PCP. Verbalizes understanding of discharge plan and strict return precautions. . 07/02 21:06 Order name: CBC with Diff; Complete Time: 22:11 sd2 07/02 21:06 Order name: CMP; Complete Time: 22:11 sd2 07/02 21:06 Order name: Magnesium; Complete Time: 22:11 sd2 07/02 21:06 Order name: Troponin High Sensitivity; Complete Time: 22:11 sd2 07/02 21:06 Order name: Lipase; Complete Time: 22:11 sd2 07/02 21:06 Order name: Urine Microscopic Only; Complete Time: 22:11 sd2 07/02 21:06 Order name: CT Abd/Pelvis - IV Contrast Only; Complete Time: 22:41 sd2 07/02 21:33 Order name: Urine Dipstick-Ancillary; Complete Time: 22:11 EDMS 07/02 21:37 Order name: Urine --Ancillary (enter results); Complete Time: 22:11 wm 07/02 21:06 Order name: EKG - Nurse/Tech; Complete Time: 21:34 sd2 07/02 21:06 Order name: Urine Dipstick-Ancillary (obtain specimen); Complete Time: 21:33 sd2 07/02 21:06 Order name: Urine Test (obtain specimen); Complete Time: 21:33 sd2 Administered Medications: 07/02 21:33 Drug: NS 0.9% 1000 ml Route: IV; Rate: 1 bolus; Site: right antecubital; aa9 07/03 00:39 Follow up: IV Status: Completed infusion; IV Intake: 1000ml kd3 07/02 21:33 Drug: morphine 4 mg Route: IVP; Infused Over: 4 mins; Site: right antecubital; aa9 23:11 Follow up: Response: No adverse reaction; Pain is unchanged, physician notified aa9 21:33 Drug: Zofran (Ondansetron) 4 mg Route: IVP; Site: right antecubital; aa9 23:11 Follow up: Response: No adverse reaction aa9 23:01 Drug: Dilaudid (HYDROmorphone) 1 mg Route: IVP; Site: right antecubital; aa9 23:28 Follow up: Response: No adverse reaction; Pain is decreased aa9 23:20 Drug: Rocephin (cefTRIAXone) 1 grams Route: IV; Rate: bolus; Site: right antecubital; aa9 07/03 00:02 Follow up: Response: No adverse reaction; IV Status: Completed infusion; IV Intake: 29ndst2 07/02 23:27 Drug: Flagyl (metroNIDAZOLE) 500 mg Volume: 100 ml; Route: IVPB; Rate: 200 ml/hr; aa9 Infused Over: 30 mins; Site: right antecubital; 07/03 00:02 Follow up: Response: No adverse reaction; IV Status: Completed infusion; IV Intake: aa9 100ml 07/02 23:43 Drug: Zofran (Ondansetron) 4 mg Route: IVP; Site: right antecubital; aa9 07/03 00:03 Follow up: Response: No adverse reaction aa9 00:37 Drug: HYDROcodone-acetaminophen 5 mg-325 mg 1 tabs Route: PO; kd3 00:39 Follow up: Response: No adverse reaction kd3 Disposition Summary: 07/03/22 00:27 Discharge Ordered Location: Home sd2 Problem: new sd2 Symptoms: have improved sd2 Condition: Stable sd2 Diagnosis - Diverticulitis of intestine, part unspecified, without perforation or abscess sd2 without bleeding Followup: sd2 - With: Private Physician - When: 2 - 3 days - Reason: Recheck today's complaints, Continuance of care, Re-evaluation by your physician Discharge Instructions: - Discharge Summary Sheet sd2 - Diverticulitis sd2 Forms: - Medication Reconciliation Form sd2 - Thank You Letter sd2 - Antibiotic Education sd2 - Prescription Opioid Use sd2 Prescriptions: - Flagyl 500 mg Oral Tablet - take 1 tablet by ORAL route every 8 hours for 10 days; 30 tablet; Refills: 0, sd2 Product Selection Permitted - Zofran 4 mg Oral Tablet - take 1 tablet by ORAL route every 6 hours As needed; 15 tablet; Refills: 0, sd2 Product Selection Permitted - Cipro 500 mg Oral Tablet - take 1 tablet by ORAL route every 12 hours for 10 days; 20 tablet; Refills: 0, sd2 Product Selection Permitted - Tramadol 50 mg Oral Tablet - take 1 tablet by ORAL route every 6 hours As needed as needed; 12 tablet; sd2 Refills: 0, Product Selection Permitted Signatures: Dispatcher [employer] Talya Michele, RN RN kd3 Marcella Cedeno MD MD sd2 Christin Hernandez, RN RN aa9 Eda Montero RN RN kb3
--- NOTE | 2022-07-03 00:27 | ER ---
Nurse's Notes [facility] Name: Blaze Aragon Age: 41 yrs Sex: Female : 1980 Arrival Date: 07/02/2022 Time: 20:52 Bed 5 Private MD: Diagnosis: Diverticulitis of intestine, part unspecified, without perforation or abscess without bleeding Presentation: 07/02 20:55 Chief complaint: Patient states: upper abdominal pain and LLQ abdominal pain that kb3 radiates into left flank since this morning. Coronavirus screen: Vaccine status: Patient reports receiving the 2nd dose of the covid vaccine. Client denies travel out of the [place] in the last 14 days. Ebola Screen: Patient negative for fever greater than or equal to 101.5 degrees Fahrenheit, and additional compatible Ebola Virus Disease symptoms Patient denies exposure to infectious person. Patient denies travel to an Ebola-affected area in the 21 days before illness onset. Initial Sepsis Screen: Does the patient meet any 2 criteria? No. Patient's initial sepsis screen is negative. Does the patient have a suspected source of infection? No. Patient's initial sepsis screen is negative. Risk Assessment: Do you want to hurt yourself or someone else? Patient reports no desire to harm self or others. Onset of symptoms was July 02, 2022 at 07:00. 20:55 Method Of Arrival: Wheelchair kb3 20:55 Acuity: INDU 3 kb3 Triage Assessment: 20:57 General: Appears uncomfortable, Behavior is calm, cooperative. Pain: Complains of pain kb3 in epigastric area and left lower quadrant Pain radiates to left low back Pain currently is 9 out of 10 on a pain scale. GI: Patient currently denies constipation, diarrhea, nausea, vomiting. 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 - Social history:: Smoking status: Patient denies any tobacco usage or history of. Screenin:35 Abuse screen: Denies threats or abuse. Denies injuries from another. Nutritional aa9 screening: No deficits noted. Tuberculosis screening: No symptoms or risk factors identified. 07/03 00:38 [facility] ED Fall Risk Assessment (Adult) History of falling in the last 3 months, kd3 including since admission No falls in past 3 months (0 pts) Confusion or Disorientation No (0 pts) Intoxicated or Sedated No (0 pts) Impaired Gait No (0 pts) Mobility Assist Device Used No (0 pt) Altered Elimination No (0 pt) Score/Fall Risk Level 0 - 2 = Low Risk Maintained a safe environment. Assessment: 07/02 21:34 General: Appears uncomfortable, Behavior is cooperative, crying. Pain: Complains of aa9 pain in epigastric area and left lower quadrant Pain currently is 8 out of 10 on a pain scale. Noted to be crying, moaning, resistant to movement. Neuro: Level of Consciousness is awake, alert, obeys commands, Oriented to person, place, time, situation. Cardiovascular: Patient's skin is warm and dry. Respiratory: Airway is patent Respiratory effort is even, unlabored. GI: Patient currently denies nausea, vomiting. : No signs and/or symptoms were reported regarding the genitourinary system. Derm: Skin is intact, is healthy with good turgor. 23:33 General: Appears comfortable, Behavior is calm, cooperative. Respiratory: Airway is aa9 patent Respiratory effort is even, unlabored. GI: Reports nausea, notified provider. 07/03 00:38 GI: Bowel sounds present X 4 quads. Abd is soft X 4 quads. kd3 Vital Signs: 07/02 20:55 BP 131 / 90; Pulse 105; Resp 20; Temp 98.7; Pulse Ox 98% ; Weight 107.5 kg; Height 5 kb3 ft. 2 in. (157.48 cm); Pain 9/10; 21:36 BP 124 / 65; Pulse 94; Pulse Ox 97% on R/A; aa9 23:02 BP 125 / 74; Pulse 86; Resp 21 S; Pulse Ox 97% on R/A; aa9 23:28 BP 119 / 77; Pulse 94; Resp 19 S; Pulse Ox 95% ; aa9 07/03 00:23 BP 121 / 74; Pulse 83; Resp 19; Pulse Ox 98% ; kd3 07/02 20:55 Body Mass Index 43.35 (107.50 kg, 157.48 cm) kb3 ED Course: 07/02 20:52 Patient arrived in ED. as 20:57 Talya Trujillo, RN is Primary Nurse. kd3 20:57 Triage completed. kb3 20:57 Arm band placed on right wrist. kb3 21:01 Marcella Cedeno MD is Attending Physician. sd2 21:20 Inserted saline lock: 20 gauge in right antecubital area, using aseptic technique. aa9 Blood collected. 21:34 Troponin High Sensitivity Sent. aa9 21:34 Magnesium Sent. aa9 21:34 CMP Sent. aa9 21:34 Urine Microscopic Only Sent. aa9 21:34 CBC with Diff Sent. aa9 22:33 CT Abd/Pelvis - IV Contrast Only In Process Unspecified. EDMS 07/03 00:37 No provider procedures requiring assistance completed. IV discontinued, intact, kd3 bleeding controlled, No redness/swelling at site. Pressure dressing applied. 00:38 Patient has correct armband on for positive identification. Placed in gown. Bed in low kd3 position. Administered Medications: 07/02 21:33 Drug: NS 0.9% 1000 ml Route: IV; Rate: 1 bolus; Site: right antecubital; aa9 07/03 00:39 Follow up: IV Status: Completed infusion; IV Intake: 1000ml kd3 07/02 21:33 Drug: morphine 4 mg Route: IVP; Infused Over: 4 mins; Site: right antecubital; aa9 23:11 Follow up: Response: No adverse reaction; Pain is unchanged, physician notified aa9 21:33 Drug: Zofran (Ondansetron) 4 mg Route: IVP; Site: right antecubital; aa9 23:11 Follow up: Response: No adverse reaction aa9 23:01 Drug: Dilaudid (HYDROmorphone) 1 mg Route: IVP; Site: right antecubital; aa9 23:28 Follow up: Response: No adverse reaction; Pain is decreased aa9 23:20 Drug: Rocephin (cefTRIAXone) 1 grams Route: IV; Rate: bolus; Site: right antecubital; aa9 07/03 00:02 Follow up: Response: No adverse reaction; IV Status: Completed infusion; IV Intake: 13oikm0 07/02 23:27 Drug: Flagyl (metroNIDAZOLE) 500 mg Volume: 100 ml; Route: IVPB; Rate: 200 ml/hr; aa9 Infused Over: 30 mins; Site: right antecubital; 07/03 00:02 Follow up: Response: No adverse reaction; IV Status: Completed infusion; IV Intake: aa9 100ml 07/02 23:43 Drug: Zofran (Ondansetron) 4 mg Route: IVP; Site: right antecubital; aa9 07/03 00:03 Follow up: Response: No adverse reaction aa9 00:37 Drug: HYDROcodone-acetaminophen 5 mg-325 mg 1 tabs Route: PO; kd3 00:39 Follow up: Response: No adverse reaction kd3 Medication: 00:38 VIS not applicable for this client. kd3 Intake: 00:02 IV: 100ml; Total: 100ml. aa9 00:02 IV: 10ml; Total: 110ml. aa9 00:39 IV: 1000ml; Total: 1110ml. kd3 Outcome: 00:27 Discharge ordered by . sd2 00:38 Discharged to home ambulatory. kd3 00:38 Condition: stable 00:38 Discharge instructions given to patient, family, Instructed on discharge instructions, follow up and referral plans. medication usage, Demonstrated understanding of instructions, follow-up care, medications, Prescriptions given X 4. 00:39 Patient left the ED. kd3 Signatures: Dispatcher [employer] [place] Smith Kyli, RN RN kd3 Marcella Cedeno MD MD sd2 Christin Hernandez RN RN aa9 Eda Montero RN RN kb3
[2022-07-03] MEDS ORDERED: HYDROCODONE/APAP 5/325 MG TAB ONE (00:37)
[2022-07-03 02:05] VITALS: TEMP 98.7
[2022-07-03 02:10] VITALS: BP 121/74; O2SAT 98
--- NOTE | 2022-07-05 16:33 | EKG ---
Test Date: 2022-07-02 Test Time: 21:17:47 Campus Safety Officer: JACQUES MEASUREMENT RESULTS: Intervals: Rate: 88 NH: 138 QRSD: 74 QT: 332 QTc: 401 [place]: P: 50 NH: 138 QRS: 59 T: 41 INTERPRETIVE STATEMENTS: Normal sinus rhythm Normal ECG Compared to ECG 06/15/2022 09:39:56 Sinus tachycardia no longer present Ventricular premature complex(es) no longer present T-wave abnormality no longer present Electronically Signed On 07-05-22 16:28:47 WET PROCESS MILLER by De Slaughter
== END 2022-07-03 00:39 | disposition home or self-care (01) ==
LOC: ER 20:23
DX: K57.32 Diverticulitis of large intestine without perforation or abscess without bleeding (principal)
CPT/HCPCS: 96365; 96361; 93005; 85025; 36415; 83735; 81025; 84484; 83690; 80053; 74177; 96375; 99284; Q9967; J1170; J7030; J2405 ×2; 81003; 81015

== ENCOUNTER 2023-10-05 09:50 | Emergency (ER) | payer OTHER ==
[2023-10-05] MEDS ORDERED: ALBUTEROL 2.5 MG/3 ML NEB SOL ONE (10:59)
[2023-10-05] MEDS ORDERED: ONDANSETRON 4 MG/2 ML VIAL ONE (10:59)
[2023-10-05] MEDS ORDERED: MORPHINE 4 MG/ML SYR ONE (10:59)
[2023-10-05] MEDS ORDERED: NA CHLORIDE 0.9% 1,000 ML ONE (11:00)
--- NOTE | 2023-10-05 11:01 | RAD REPORT ---
EXAM DESCRIPTION: RAD - Chest Single View - 10/05/2023 10:52 am CLINICAL HISTORY: COUGH Chest pain. COMPARISON: Chest Single View dated 06/18/2022; Chest Single View dated 06/15/2022; CHEST SINGLE VIE W dated 06/13/2011; CHEST PA AND LAT 2 VIEW dated 06/12/2008 FINDINGS: Portable technique limits examination quality. The lungs are grossly clear. The heart is normal in size. No displaced fractures. IMPRESSION: No acute intrathoracic process suspected.
[2023-10-05 11:23] LABS: Absolute Basophils 0.1 K/uL (0-0.5); Absolute Eosinophils 0.7 K/uL (0-0.5); Absolute Lymphocytes (CBC) 1.1 K/uL (0.7-4.9); Absolute Monocytes 0.6 K/uL (0.1-1.3); Absolute Neutrophil 1.5 K/uL (1.8-8.0); Basophils % 1.6 % (0-1.3); Eosinophils % 17.2 % (0-4.4); Hemoglobin 10.7 g/dL (12.0-15.0); Lymphocytes % 29.2 % (15.3-44.8); MCH 20.9 pg (27.0-35.0); MCHC 30.7 g/dL (32.0-36.0); MPV 7.9 fL (7.6-11.3); Monocytes % 14.8 % (3.3-12.3); Neutrophils % 37.2 % (41.7-73.7); Nucleated Red Blood Cells % 0.1 % (0-0); Platelets 336 thou/uL (152-406); RBC Red Blood Cell Count 5.15 M/uL (3.86-4.86)
[2023-10-05 11:42] LABS: Albumin 3.5 g/dL (3.4-5.0); Albumin/Globulin Ratio 0.9 (1.1-1.8); Anion Gap 7.3 mEq/L (5.0-15.0); Bilirubin Total 0.3 mg/dL (0.2-1.0); Globulin 4.1 g/dL (2.3-3.5); Potassium 4.3 mEq/L (3.5-5.1); Protein, Total 7.6 g/dL (6.4-8.2)
--- NOTE | 2023-10-05 12:21 | RAD REPORT ---
EXAM DESCRIPTION: CTAbdomen Pelvis W Contrast - 10/05/2023 12:11 pm CLINICAL HISTORY: Abdominal pain. ABD PAIN COMPARISON: Abdomen Pelvis W Contrast dated 03/02/2023; Abdomen Pelvis W Contrast dated 07/02/2022 TECHNIQUE: Biphasic CT imaging of the abdomen and pelvis was performed with 100 ml non-ionic IV cont rast. All CT scans are performed using dose optimization technique as appropriate and may include automated exposure control or mA/KV adjustment according to patient size. FINDINGS: The lung bases are clear. The liver, spleen, pancreas, adrenal glands and kidneys are within normal limits. No bowel obstruction, free air, free fluid or abscess. Moderate stool is present throughout the colon with fecalization of terminal ileum noted. Scattered diverticulosis coli. The appendix is normal. Sm all fat containing umbilical hernia. No evidence of significant lymphadenopathy. No suspicious bony findings. Fundal uterine fibroid. IMPRESSION: No acute intra-abdominal or pelvic finding. Moderate stool retained throughout the colon with fecalization of terminal ileum, can be seen in func tional GI conditions. Small fat containing umbilical hernia. Scattered diverticulosis coli.
[2023-10-05 12:23] LABS: Anisocytosis 1+; Blood Morphology Comment NOTED (NOT SEEN); Platelet Estimate ADEQ; White Blood Cell Scan OK (OK)
[2023-10-05 12:55] LABS: Specific Gravity > 1.030 (1.005-1.030)
[2023-10-05 12:56] LABS: Specific Gravity > 1.030 (1.005-1.030); Urine Bacteria <20 /HPF (<20); Urine Bilirubin NEGATIVE (Negative); Urine Blood Negative (Negative); Urine Clarity Clear (Clear); Urine Color Colorless (Yellow); Urine Culture Reflex Order NOT NEEDED; Urine Glucose NEGATIVE (Negative); Urine Ketones NEGATIVE (Negative); Urine Microscopic Reflex YN ORDER UMIC; Urine Mucus Slight /HPF (None Seen); Urine Nitrite NEGATIVE (Negative); Urine Protein NEGATIVE (Negative); Urine RBC <5 /HPF (None Seen); Urine Urobilinogen Normal (Normal); Urine WBC None Seen /HPF (<5); Urine pH 5.5 (5.0-7.0)
--- NOTE | 2023-10-05 13:32 | ER ---
Nurse's Notes [facility] Name: Blaze Aragon Age: 42 yrs Sex: Female : 1980 Arrival Date: 10/05/2023 Time: 09:50 Bed 2 Private MD: Emily Segura C Diagnosis: Crohn's disease, unspecified, without complications;Unspecified asthma with (acute) exacerbation Presentation: 10/04 10:04 Chief complaint: Patient states: Abdominal pain and vomiting for about a week, had nj1 bloody stool this am, pain has gotten worse 2 days ago, had appointment with GI today but was advised to come to ED for evaluation and treatment. Coronavirus screen: Vaccine status: Patient reports receiving the 2nd dose of the covid vaccine. Ebola Screen: Patient denies travel to an Ebola-affected area in the 21 days before illness onset. Initial Sepsis Screen: Does the patient meet any 2 criteria? HR > 90 bpm. No. Patient's initial sepsis screen is negative. Does the patient have a suspected source of infection? No. Patient's initial sepsis screen is negative. Risk Assessment: Do you want to hurt yourself or someone else? Patient reports no desire to harm self or others. Onset of symptoms was September 2023. 10:04 Method Of Arrival: Ambulatory [facility] 10:04 Acuity: INDU 3 nj Historical: - Allergies: 10:08 No Known Allergies; nj1 - PMHx: 10:08 Crohn's Disease; Asthma; chiari malformation; connective tissue disorder; nj1 - PSHx: 10:08 section; Arnold Chiari Sx; nj 12:01 Ligation of fallopian tube; ph - Immunization history:: Client reports receiving the 2nd dose of the Covid vaccine. - Infectious Disease History:: Denies. - Social history:: Smoking status: Patient denies any tobacco usage or history of. Screenin:52 [facility] ED Fall Risk Assessment (Adult) History of falling in the last 3 months, ph including since admission No falls in past 3 months (0 pts) Confusion or Disorientation No (0 pts) Intoxicated or Sedated No (0 pts) Impaired Gait No (0 pts) Mobility Assist Device Used No (0 pt) Altered Elimination No (0 pt) Score/Fall Risk Level 0 - 2 = Low Risk Oriented to surroundings, Maintained a safe environment, Provided non-skid footwear, Hourly rounding (assess needs \T\ fall precautionary measures) done. Abuse screen: Denies threats or abuse. Denies injuries from another. Nutritional screening: No deficits noted. Tuberculosis screening: No symptoms or risk factors identified. Assessment: 11:15 General: Appears in no apparent distress. uncomfortable, Behavior is calm, cooperative, ph appropriate for age. Pain: Complains of pain in right upper quadrant and left upper quadrant. Neuro: Level of Consciousness is awake, alert, obeys commands, Oriented to person, place, time, situation. Cardiovascular: Capillary refill < 3 seconds in bilateral fingers Patient's skin is warm and dry. Respiratory: Airway is patent Respiratory effort is even, unlabored, Respiratory pattern is regular, symmetrical. GI: Abdomen is round non-distended, Reports upper abdominal pain. Derm: Skin is pink, warm \T\ dry. Musculoskeletal: Circulation, motion, and sensation intact. Range of motion: intact in all extremities. 12:15 Reassessment: Patient appears in no apparent distress at this time. Patient and/or ph family updated on plan of care and expected duration. Pain level reassessed. Patient is alert, oriented x 3, equal unlabored respirations, skin warm/dry/pink. 13:15 Reassessment: Patient appears in no apparent distress at this time. Patient and/or ph family updated on plan of care and expected duration. Pain level reassessed. Patient is alert, oriented x 3, equal unlabored respirations, skin warm/dry/pink. Vital Signs: 10:04 BP 138 / 94; Pulse 114; Resp 20; Temp 98.4(O); Pulse Ox 98% on R/A; Weight 108.86 kg; nj1 Height 5 ft. 2 in. ; Pain 9/10; 11:00 Temp 97.6(O); kc6 11:55 BP 119 / 80; Pulse 86; Resp 18; Pulse Ox 100% on R/A; ph 13:13 BP 121 / 70; Pulse 91; Resp 19 S; Pulse Ox 100% on R/A; kc6 10:04 Body Mass Index 43.90 (108.86 kg, 157.48 cm) nj1 10:04 Pain Scale: Adult [facility] ED Course: 09:51 Patient arrived in ED. rg4 09:51 Emily Segura MD is Private Physician. rg4 10:08 Triage completed. nj1 10:08 Arm band placed on right wrist. nj1 10:10 Precious Mcgee, RN is Primary Nurse. ph 10:11 Cindy Cuevas is Attending Physician. ci 10:54 XRAY Chest (1 view) In Process Unspecified. EDMS 11:52 Patient has correct armband on for positive identification. Placed in gown. Bed in low ph position. Call light in reach. Side rails up X2. Pulse ox on. NIBP on. Door closed. Noise minimized. Lights dimmed. Warm blanket given. 12:12 CT Abd/Pelvis - IV Contrast Only In Process Unspecified. EDMS 12:32 Test, Urine Sent. kc6 12:32 Urinalysis w/ reflexes Sent. kc6 13:36 No provider procedures requiring assistance completed. IV discontinued, intact, ld1 bleeding controlled, No redness/swelling at site. Administered Medications: 11:09 Drug: NS 0.9% IV 1000 ml IV at 1 bolus Per protocol; 1000 mL bolus Route: IV; Rate: 1 ph bolus; Site: right antecubital; 11:09 Drug: Ondansetron IVP 4 mg IVP once; over 2 minutes Route: IVP; Site: right antecubital;ph 11:09 Drug: morphine IVP or IV 4 mg IVP once over 4 mins Route: IVP; Infused Over: 4 mins; ph Site: right antecubital; 11:09 Drug: Albuterol Inhalation 2.5 mg Inhalation once Route: Inhalation; ph Medication: 11:52 VIS not applicable for this client. ph Outcome: 13:31 Discharge ordered by . ci 13:36 Discharged to home ambulatory, ld1 13:36 Condition: stable 13:36 Discharge instructions given to patient, Instructed on discharge instructions, follow up and referral plans. medication usage, Demonstrated understanding of instructions, follow-up care, medications, Prescriptions given X 2, 13:36 Patient left the ED. ld1 Signatures: Dispatcher [employer] EDIN Precious Mcgee RN RN ph Garcia, Rubi rg4 Johanne Mora RN RN ld1 Ciara Martinez RN RN kc6 Kirsten Gann RN RN nj1 Cindy Cuevas ci Corrections: (The following items were deleted from the chart) 10:08 10:04 Pulse 114bpm; Resp 20bpm; Pulse Ox 98% RA; Temp 98.4F Oral; 108.86 kg; Height 5 nj1 ft. 2 in.; BMI: 43.9; Pain 03/06, Adult; nj1
--- NOTE | 2023-10-05 13:33 | EDPHYS ---
Physician Documentation [facility] Name: Blaze Aragon Age: 42 yrs Sex: Female : 1980 Arrival Date: 10/05/2023 Time: 09:50 Bed 2 Private MD: Emily Segura C ED Physician Cindy Cuevas HPI: 10/04 10:41 This 42 yrs old Black Female presents to ER via Ambulatory with complaints of Bloody ci Stools, Abdominal Pain. 10:41 Patient is a 42-year female with PMH Crohn's disease, asthma, Chiari malformation who ci presents to the ED with chief complaint of generalized abdominal pain, nausea/vomiting that began a week ago. Reports she has had multiple episodes of vomiting bile acid. Had an episode of emesis on Tuesday where she aspirated. Has had a wet cough, wheezing since then. 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 Historical: - Allergies: 10:08 No Known Allergies; nj1 - PMHx: 10:08 Crohn's Disease; Asthma; chiari malformation; connective tissue disorder; nj1 - PSHx: 10:08 section; Arnold Chiari Sx; nj1 12:01 Ligation of fallopian tube; ph - Immunization history:: Client reports receiving the 2nd dose of the Covid vaccine. - Infectious Disease History:: Denies. - Social history:: Smoking status: Patient denies any tobacco usage or history of. ROS: 10:41 Constitutional: Negative for fever, chills, and weight loss, ci 10:41 Respiratory: Positive for cough, wheezing, expiratory, 10:41 Abdomen/GI: Positive for abdominal pain, nausea and vomiting, black/tarry stool, Exam: 10:41 Constitutional: This is a well developed, well nourished patient who is awake, alert, ci and in no acute distress. Head/Face: Normocephalic, atraumatic. Eyes: Pupils equal round and reactive to light, extra-ocular motions intact. Lids and lashes normal. Conjunctiva and sclera are non-icteric and not injected. Cornea within normal limits. Periorbital areas with no swelling, redness, or edema. ENT: Nares patent. No nasal discharge, no septal abnormalities noted. Tympanic membranes are normal and external auditory canals are clear. Oropharynx with no redness, swelling, or masses, exudates, or evidence of obstruction, uvula midline. Mucous membranes moist. Neck: Trachea midline, no thyromegaly or masses palpated, and no cervical lymphadenopathy. Supple, full range of motion without nuchal rigidity, or vertebral point tenderness. No Meningismus. Chest/axilla: Normal chest wall appearance and motion. Nontender with no deformity. No lesions are appreciated. Back: No spinal tenderness. No costovertebral tenderness. Full range of motion. Skin: Warm, dry with normal turgor. Normal color with no rashes, no lesions, and no evidence of cellulitis. MS/ Extremity: Pulses equal, no cyanosis. Neurovascular intact. Full, normal range of motion. Neuro: Awake and alert, GCS 15, oriented to person, place, time, and situation. Cranial nerves II-XII grossly intact. Motor strength 5/5 in all extremities. Sensory grossly intact. Cerebellar exam normal. Normal gait. Psych: Awake, alert, with orientation to person, place and time. Behavior, mood, and affect are within normal limits. 10:41 Cardiovascular: Rate: tachycardic, Rhythm: regular, 10:41 Respiratory: Breath sounds: wheezing: that is moderate, is scattered, 10:41 Abdomen/GI: Palpation: soft, severe abdominal tenderness, in all quadrants, voluntary guarding, is elicited in all quadrants, Vital Signs: 10:04 BP 138 / 94; Pulse 114; Resp 20; Temp 98.4(O); Pulse Ox 98% on R/A; Weight 108.86 kg; nj1 Height 5 ft. 2 in. ; Pain 9/10; 11:00 Temp 97.6(O); kc6 11:55 BP 119 / 80; Pulse 86; Resp 18; Pulse Ox 100% on R/A; ph 13:13 BP 121 / 70; Pulse 91; Resp 19 S; Pulse Ox 100% on R/A; kc6 10:04 Body Mass Index 43.90 (108.86 kg, 157.48 cm) [facility] 10:04 Pain Scale: Adult [facility] MDM: 10:11 Patient medically screened. ci 10:41 Differential Diagnosis Crohn's exacerbation, pancreatitis, perforated ulcer, ci cholecystitis, SBO. Data reviewed: vital signs, nurses notes. Care significantly affected by the following chronic conditions: Crohn's disease, asthma. ED course: Patient presents for evaluation of abdominal pain, nausea/vomiting with onset bloody stools. Possible Crohn's exacerbation. Will obtain labs, imaging. Patient noted to be wheezing on exam, history of asthma, will add chest x-ray, administer albuterol. Patient also tachycardic on arrival, possible dehydration, will obtain EKG to rule out arrhythmia. Final dispo is pending labs and imaging.. 13:30 ED course: Reassessed, pain significantly improved. Possible Crohn's exacerbation, will ci start on steroid burst and have a follow-up with GI. Scheduled to see GI today.. 10/04 10:34 Order name: CBC with Diff; Complete Time: 12:42 ci 10/04 11:45 Interpretation: Abnormal: HGB 10.7; WBC 3.90; MCV 68.0. ci 10/04 10:34 Order name: CMP; Complete Time: 11:45 ci 10/04 10:34 Order name: Lipase; Complete Time: 11:45 ci 10/04 10:34 Order name: Test, Urine; Complete Time: 13:01 ci 10/04 10:34 Order name: Urinalysis w/ reflexes; Complete Time: 13:01 ci 10/04 12:24 Order name: CBC Smear Scan; Complete Time: 12:42 EDMS 10/04 10:34 Order name: CT Abd/Pelvis - IV Contrast Only; Complete Time: 12:42 ci 10/04 12:43 Interpretation: Abnormal: Per Radiologist's finding(s): IMPRESSION: No acute ci intra-abdominal or pelvic finding. Moderate stool retained throughout the colon with fecalization of terminal ileum, can be seen in functional GI conditions. Small fat containing umbilical hernia. Scattered diverticulosis coli. 10/04 10:34 Order name: XRAY Chest (1 view); Complete Time: 11:04 ci 10/04 10:34 Order name: EKG; Complete Time: 10:35 ci 10/04 10:34 Order name: IV Saline Lock; Complete Time: 11:09 ci 10/04 10:34 Order name: Labs collected and sent; Complete Time: 11:09 ci 10/04 10:34 Order name: EKG - Nurse/Tech; Complete Time: 12:32 ci Administered Medications: 11:09 Drug: NS 0.9% IV 1000 ml IV at 1 bolus Per protocol; 1000 mL bolus Route: IV; Rate: 1 ph bolus; Site: right antecubital; 11:09 Drug: Ondansetron IVP 4 mg IVP once; over 2 minutes Route: IVP; Site: right antecubital;ph 11:09 Drug: morphine IVP or IV 4 mg IVP once over 4 mins Route: IVP; Infused Over: 4 mins; ph Site: right antecubital; 11:09 Drug: Albuterol Inhalation 2.5 mg Inhalation once Route: Inhalation; ph Disposition Summary: 10/05/23 13:31 Discharge Ordered Notes: Location: Home ci Condition: Stable ci Diagnosis - Crohn's disease, unspecified, without complications ci - Unspecified asthma with (acute) exacerbation ci Followup: ci - With: Private Physician - When: 2 - 3 days - Reason: Recheck today's complaints, Re-evaluation by your physician Discharge Instructions: - Discharge Summary Sheet ci - Asthma, Adult ci - Crohn's Disease ci Forms: - Medication Reconciliation Form ci - Thank You Letter ci - Antibiotic Education ci - Prescription Opioid Use ci - Patient Portal Instructions ci - Leadership Thank You Letter ci Prescriptions: - albuterol sulfate 90 mcg/actuation Inhalation HFA Aerosol Inhaler - inhale 2 inhalation INHALATION route every 6 hours as needed for shortness of ci breath or wheezing; 1 Each; Refills: 0, Product Selection Permitted - Prednisone 20 mg Oral Tablet - take 2 tablets ORAL route once daily for 5 days; 10 tablet; Refills: 0, Product ci Selection Permitted Signatures: Dispatcher [employer] EDPrecious Lake RN RN Kirsten Gann RN RN nj1 Cindy Cuevas ci Corrections: (The following items were deleted from the chart) 10:35 10:35 CBC+H.LAB.BRZ ordered. EDMS EDMS 10:35 10:35 COMPREHENSIVE METABOLIC PANEL+C.LAB.BRZ ordered. EDMS EDMS 10:35 10:35 LIPASE+C.LAB.BRZ ordered. EDMS EDMS 10:35 10:35 Test, Urine+UC.LAB.BRZ ordered. EDMS EDMS 10:35 10:35 Urinalysis+U.LAB.BRZ ordered. EDMS EDMS
[2023-10-05 15:07] VITALS: BP 121/70; TEMP 97.6; O2SAT 100
--- NOTE | 2023-10-06 17:49 | EKG ---
Test Date: 2023-10-05 Test Time: 10:56:53 Social Contact Worker: AYALA MEASUREMENT RESULTS: Intervals: Rate: 103 DC: 138 QRSD: 70 QT: 328 QTc: 429 [place]: P: 66 DC: 138 QRS: 61 T: 14 INTERPRETIVE STATEMENTS: Sinus tachycardia Otherwise normal ECG Compared to ECG 03/02/2023 20:04:23 Sinus rhythm no longer present Myocardial infarct finding no longer present Electronically Signed On 10-06-23 17:46:40 CDT by De Slaughter
== END 2023-10-05 13:36 | disposition home or self-care (01) ==
LOC: ER 09:50
DX: K50.90 Crohn's disease, unspecified, without complications (principal); J45.901 Unspecified asthma with (acute) exacerbation
CPT/HCPCS: 85025; 81001; 36415; 81025; 83690; 80053; 74177; 71045; Q9967; J7613; J2405; J7030; 93005

== ENCOUNTER 2024-06-25 14:55 | Inpatient (IN) | payer OTHER ==
[2024-06-25] MEDS ORDERED: IPRATROPIUM BROM 0.5MG/2.5ML ONE (16:08)
[2024-06-25] MEDS ORDERED: LEVALBUTEROL 1.25 MG/3 ML NEB ONE ×2 (16:09→17:19)
[2024-06-25] MEDS ORDERED: MAGNESIUM SULFATE 1 gm IVPB 1 GM/100 ML BAG IV ONE (16:09)
--- NOTE | 2024-06-25 16:27 | RAD REPORT ---
EXAM: Chest Single View HISTORY: DYSPNEA COMPARISON: 10/05/2023 FINDINGS: LUNGS/PLEURA: Low lung volumes with bronchial wall thickening. MEDIASTINUM: The mediastinal silhouette is within normal limits. CARDIAC: The cardiac silhouette is within normal limits. UPPER ABDOMEN: No significant abnormality. BONES: No acute abnormality. LINES/TUBES/OTHER: N/A IMPRESSION: Bronchial wall thickening could reflect a nonspecific bronchitis.
[2024-06-25 16:30] LABS: Absolute Basophils 0.1 K/uL (0-0.5); Absolute Eosinophils 0.1 K/uL (0-0.5); Absolute Lymphocytes (CBC) 0.2 K/uL (0.7-4.9); Absolute Monocytes 0.2 K/uL (0.1-1.3); Basophils % 0.9 % (0-1.3); Eosinophils % 2.3 % (0-4.4); Hematocrit 39.5 % (36.0-45.0); Hemoglobin 12.3 g/dL (12.0-15.0); Lymphocytes % 4.1 % (15.3-44.8); MCH 22.9 pg (27.0-35.0); MCHC 31.2 g/dL (32.0-36.0); MCV 73.4 fL (80-100); MPV 8.3 fL (7.6-11.3); Monocytes % 4.1 % (3.3-12.3); Neutrophils % 88.6 % (41.7-73.7); Platelets 251 thou/uL (152-406); RBC Red Blood Cell Count 5.38 M/uL (3.86-4.86); Red Cell Distribution Width 18.1 % (12.1-15.2)
[2024-06-25 16:33] LABS: Specific Gravity 1.013 (1.005-1.030); Urine Bacteria None Seen /HPF (<20); Urine Bilirubin NEGATIVE (Negative); Urine Blood Negative (Negative); Urine Clarity Turbid (Clear); Urine Color Light-Yellow (Yellow); Urine Culture Reflex Order NOT NEEDED; Urine Glucose NEGATIVE (Negative); Urine Ketones TRACE (Negative); Urine Microscopic Reflex YN ORDER UMIC; Urine Mucus Slight /HPF (None Seen); Urine Nitrite NEGATIVE (Negative); Urine Protein NEGATIVE (Negative); Urine RBC <5 /HPF (None Seen); Urine Urobilinogen Normal (Normal); Urine WBC <5 /HPF (<5); Urine WBC Clump Rare /HPF (None Seen)
[2024-06-25 16:36] LABS: PT Prothrombin Time 13.1 SECONDS (9.4-12.5); PTT, Activated Partial Thromb 33.5 SECONDS (24.3-36.9); Protime INR 1.18
[2024-06-25 16:46] LABS: Albumin 3.6 g/dL (3.4-5.0); Albumin/Globulin Ratio 0.8 (1.1-1.8); Anion Gap 11.9 mEq/L (5.0-15.0); Bilirubin Total 0.4 mg/dL (0.2-1.0); Globulin 4.4 g/dL (2.3-3.5); Potassium 3.9 mEq/L (3.5-5.1)
[2024-06-25] MEDS ORDERED: NA CHLORIDE 0.9% 250 ML ONE (17:19)
[2024-06-25] MEDS ORDERED: AZITHROMYCIN 500 MG INJ IVPB ONE (17:19)
--- NOTE | 2024-06-25 17:28 | EDPHYS ---
Physician Documentation [facility] Name: Blaze Aragon Age: 43 yrs Sex: Female : 1980 Arrival Date: 06/25/2024 Time: 14:55 Bed 17 Private MD: ED Physician Bossman Sumner HPI: 06/25 16:20 This 43 yrs old Black Female presents to ER via EMS with complaints of Shortness Of rn Breath. 16:20 The patient has shortness of breath at rest, with light activity. rn 16:21 Onset: The symptoms/episode began/occurred yesterday. Duration: The symptoms are rn continuous. The patient's shortness of breath is aggravated by coughing, exertion, light activity. Severity of symptoms: At their worst the symptoms were moderate in the emergency department the symptoms are unchanged. The patient has experienced similar episodes in the past. Patient reports 2 days of cough, congestion, subjective fever and chills with shortness of breath. Seen at urgent care today and 911 was called due to oxygen of 91% and respiratory distress. Given dexamethasone 10 mg prior to EMS arrival at urgent care. Patient reports has asthma. Increase in inhaler use recently with not much help.. Historical: - Allergies: 15:48 No Known Allergies; cm10 - PMHx: 15:48 Asthma; chiari malformation; connective tissue disorder; Crohn's Disease; cm10 - PSHx: 15:48 Arnold Chiari Sx; section; Ligation of fallopian tube; cm10 - Immunization history:: Adult Immunizations up to date. - Infectious Disease History:: Denies. - Social history:: Smoking status: unknown. - Family history:: not pertinent. - Hospitalizations: : No recent hospitalization is reported. ROS: 16:21 Constitutional: Negative for fever, chills, and weight loss, Cardiovascular: Negative rn for chest pain, palpitations, and edema, Respiratory: Positive for cough and shortness of breath Abdomen/GI: Negative for abdominal pain, diarrhea, and constipation, MS/Extremity: Negative for injury and deformity, Skin: Negative for injury, rash, and discoloration, Neuro: Positive for generalized weakness and malaise Exam: 16:21 Constitutional: This is a well developed, well nourished patient who is awake, alert, rn moderate tachypnea Head/Face: Normocephalic, atraumatic. Cardiovascular: Tachycardic, regular Respiratory: Moderate tachypnea with coarse bilateral breath sounds and expiratory wheezing, no retractions Abdomen/GI: Soft, non-tender MS/ Extremity: Pulses equal, no cyanosis. Neurovascular intact. Full, normal range of motion. Equal circumference. Neuro: Awake and alert, GCS 15 16:25 ECG was reviewed by the Attending Physician. rn Vital Signs: 15:41 BP 153 / 93; Pulse 119; Resp 22; Temp 98.9; Pulse Ox 97% on 4 lpm NC; Weight 104.33 kg; cm10 Height 5 ft. 2 in. ; Pain 7/10; 17:00 BP 132 / 85; Pulse 121; Resp 22; Temp 98.9(O); Pulse Ox 98% on 3 lpm NC; cm10 18:00 BP 102 / 67; Pulse 124; Resp 22; Pulse Ox 96% on R/A; cm10 18:15 BP 122 / 76; Pulse 120; Resp 21; Pulse Ox 96% on R/A; cm10 19:16 BP 122 / 69; Pulse 113; Resp 26; Temp 99.6; Pulse Ox 96% on R/A; Pain 6/10; mt4 06/26 06:55 BP 96 / 52; Pulse 101; Resp 20 S; Pulse Ox 91% on R/A; br2 06/25 15:41 Body Mass Index 42.07 (104.33 kg, 157.48 cm) cm10 06/25 15:41 Pain Scale: Adult cm10 19:16 Pain Scale: Adult mt4 MDM: 06/25 15:39 Medical Screening Exam initiated rn 17:26 Differential diagnosis: Anemia Bronchitis pneumonia, Pneumothorax pulmonary edema. Data rn reviewed: vital signs, nurses notes, lab test result(s), radiologic studies, plain films, and as a result, I will admit patient. Consideration of Admission/Observation Patient was admitted/placed on observation. Escalation of care including admission/observation considered. Counseling: I had a detailed discussion with the patient and/or guardian regarding the historical points, exam findings, and any diagnostic results supporting the discharge/admit diagnosis, lab results, radiology results, the need for further work-up and treatment in the hospital. Response to treatment: the patient's symptoms have mildly improved after treatment, and as a result, I will admit patient. ED course: Patient still tachypneic with mild wheezing, still tachycardic, does not appear to be responding as well as I would have liked to treatment. Will admit to Dr. Faye for further treatment. Chest x-ray images show bilateral interstitial infiltrate consistent with either bronchitis or atypical pneumonia. Zithromax ordered.. ED course: I personally spent 35 minutes engaged in work directly related to the individual patient's care. This does not include any time spent performing procedures. The patient has been deemed critically ill because of moderate to severe asthma exacerbation requiring multiple nebulizer treatments, IV steroids, IV magnesium and admission to the hospital.. 06/25 15:48 Order name: Blood Culture Adult (2) 06/25 15:48 Order name: CBC with Diff; Complete Time: 16:31 06/25 15:48 Order name: CMP; Complete Time: 17: 06/25 15:48 Order name: Lactate w/ 2H reflex if indic.; Complete Time: 17: 06/25 15:48 Order name: Protime (+inr); Complete Time: 17: 06/25 15:48 Order name: Ptt, Activated; Complete Time: 17: 06/25 15:49 Order name: Urinalysis w/ reflexes; Complete Time: 17: 06/25 15:42 Order name: XRAY Chest (1 view); Complete Time: 16:31 rn 30 20:08 Order name: CT EDCO 06/25 15:48 Order name: EKG; Complete Time: 15:49 rn 06/25 17:51 Order name: CONS Physician Consult [facility] 06/25 15:48 Order name: Cardiac monitoring; Complete Time: 16:31 rn 30 15:48 Order name: EKG - Nurse/Tech; Complete Time: 15:58 rn 06/25 15:48 Order name: IV Saline Lock - Large Bore; Complete Time: 16:31 rn 06/25 15:48 Order name: Labs collected and sent; Complete Time: 16:31 rn 06/25 15:48 Order name: O2 Per Protocol; Complete Time: 16:31 rn 06/25 15:48 Order name: O2 Sat Monitoring; Complete Time: 16:31 rn 06/25 15:48 Order name: Vital Signs; Complete Time: 16:31 rn EC:25 Rate is 112 beats/min. Rhythm is regular. QRS [place] is Normal. PA interval is normal. rn QRS interval is normal. QT interval is normal. No Q waves. T waves are Normal. No ST changes noted. Clinical impression: Sinus tachycardia. Reviewed by me. Administered Medications: 16:31 Drug: Levalbuterol Inhalation 1.25 mg Inhalation once Route: Inhalation; cm10 23:00 Follow up: Response: No adverse reaction br2 16:31 Drug: Magnesium Sulfate IVPB 1 grams IVPB once over 1 hrs Route: IVPB; Infused Over: 1 cm10 hrs; Site: right antecubital; 17:34 Follow up: Response: No adverse reaction; IV Status: Completed infusion; IV Intake: cm10 100ml 16:31 Drug: Ipratropium Inhalation Aerosol 0.5 mg Inhalation once Route: Inhalation; cm10 23:00 Follow up: Response: No adverse reaction br2 17:33 Drug: Levalbuterol Inhalation 1.25 mg Inhalation once Route: Inhalation; cm10 23:00 Follow up: Response: No adverse reaction br2 17:33 Drug: Zithromax IVPB 500 mg IVPB once over 1 hrs; mix in 250 mL NS Route: IVPB; Infused cm10 Over: 1 hrs; Site: left hand; 18:35 Follow up: Response: No adverse reaction; IV Status: Completed infusion; IV Intake: cm10 250ml Disposition: 17:28 Critical Care:. rn Disposition Summary: 06/25/24 17:28 Hospitalization Ordered Notes: Hospitalization Status: Inpatient Admission rn Provider: Emily Segura rn Condition: Stable rn Problem: new rn Symptoms: have improved rn Bed/Room Type: Standard rn Location: Telemetry/MedSurg (observation)(06/26/24 11:15) [facility] Room Assignment: 412(06/26/24 11:15) [facility] Diagnosis - Pneumonia, unspecified organism rn - Unspecified asthma with (acute) exacerbation rn Forms: - Medication Reconciliation Form rn - SBAR form rn - Leadership Thank You Letter returned telephone equipment appraiser time excluding procedures: 17:28 Critical care time: Bedside Care: 35 minutes. Total time: 35 minutes rn Signatures: Dispatcher [employer] EDCO Bossman Sumner MD MD rn [place], Vanessa RN RN 1 Katty Euceda [facility] Magy Gallagher, RN RN cm10 [place], Rhona RN br2 Corrections: (The following items were deleted from the chart) 15:42 15:42 Chest Single View+RAD.RAD.BRZ ordered. EDCO EDCO 15:49 15:49 Urinalysis+U.LAB.BRZ ordered. [facility] 17:28 17:26 ED course: I personally spent 35 minutes engaged in work directly related to the rn individual patient's care. This does not include any time spent performing procedures. The patient has been deemed critically ill because of moderate to severe asthma exacerbation requiring multiple nebulizer treatments, IV steroids, IV magnesium and admission to the hospital.. rn 22: 17:28 Telemetry/MedSurg (Inpatient) rn vc1 22:07 17:28 rn vc1 06/26 11:15 12 22:07 [facility] ER HOLD vc1 6 06/26 11:15 12 22:07 ERHOLD- vc1 bc6
--- NOTE | 2024-06-25 17:28 | ER ---
Nurse's Notes [facility] Name: Blaze Aragon Age: 43 yrs Sex: Female : 1980 Arrival Date: 06/25/2024 Time: 14:55 Bed 17 Private MD: Diagnosis: Pneumonia, unspecified organism;Unspecified asthma with (acute) exacerbation Presentation: 06/25 15:40 Chief complaint: EMS states: Called to urgent care due to patient having shortness of cm10 breath. Pt received Dexamethasone 10mg IM by urgent care and 1 breathing treatment by EMS. Coronavirus screen: Client denies travel out of the [place] in the last 14 days. Ebola Screen: Patient denies travel to an Ebola-affected area in the 21 days before illness onset. No symptoms or risks identified at this time. Initial Sepsis Screen: Does the patient meet any 2 criteria? HR > 90 bpm. Does the patient have a suspected source of infection? No. Patient's initial sepsis screen is negative. Risk Assessment: Do you want to hurt yourself or someone else? Patient reports no desire to harm self or others. Onset of symptoms was June 25, 2024. Care prior to arrival: Medication(s) given: Albuterol Neb x 1, Atrovent Neb x 1, IV initiated. 20 GA, in the left antecubital area, Med neb given. 15:40 Method Of Arrival: EMS: [facility] 15:40 Acuity: INDU 2 cm10 Triage Assessment: 15:48 General: Appears in no apparent distress. uncomfortable, Behavior is calm, cooperative. cm10 Pain: Complains of pain in back Pain currently is 7 out of 10 on a pain scale. Neuro: No deficits noted. Level of Consciousness is awake, alert, obeys commands, Oriented to person, place, time, situation, Appropriate for age. Cardiovascular: No deficits noted. Patient's skin is warm and dry. Respiratory: Reports shortness of breath Airway is patent Respiratory effort is labored, Respiratory pattern is tachypnea Breath sounds are diminished bilaterally. Onset: The symptoms/episode began/occurred gradually, the patient has moderate shortness of breath. Historical: - Allergies: 15:48 No Known Allergies; cm10 - PMHx: 15:48 Asthma; chiari malformation; connective tissue disorder; Crohn's Disease; cm10 - PSHx: 15:48 Arnmitch Devineari Sx; section; Ligation of fallopian tube; cm10 - Immunization history:: Adult Immunizations up to date. - Infectious Disease History:: Denies. - Social history:: Smoking status: unknown. - Family history:: not pertinent. - Hospitalizations: : No recent hospitalization is reported. Screenin:49 [facility] ED Fall Risk Assessment (Adult) History of falling in the last 3 months, cm10 including since admission No falls in past 3 months (0 pts) Confusion or Disorientation No (0 pts) Intoxicated or Sedated No (0 pts) Impaired Gait No (0 pts) Mobility Assist Device Used No (0 pt) Altered Elimination No (0 pt) Score/Fall Risk Level 0 - 2 = Low Risk Oriented to surroundings, Maintained a safe environment, Hourly rounding (assess needs \T\ fall precautionary measures) done. Abuse screen: Denies threats or abuse. Denies injuries from another. Nutritional screening: No deficits noted. Tuberculosis screening: No symptoms or risk factors identified. Assessment: 18:35 Reassessment: Patient appears in no apparent distress at this time. No changes from cm10 previously documented assessment. Patient and/or family updated on plan of care and expected duration. Pain level reassessed. Patient is alert, oriented x 3, equal unlabored respirations, skin warm/dry/pink. Vital Signs: 15:41 BP 153 / 93; Pulse 119; Resp 22; Temp 98.9; Pulse Ox 97% on 4 lpm NC; Weight 104.33 kg; cm10 Height 5 ft. 2 in. ; Pain 7/10; 17:00 BP 132 / 85; Pulse 121; Resp 22; Temp 98.9(O); Pulse Ox 98% on 3 lpm NC; cm10 18:00 BP 102 / 67; Pulse 124; Resp 22; Pulse Ox 96% on R/A; cm10 18:15 BP 122 / 76; Pulse 120; Resp 21; Pulse Ox 96% on R/A; cm10 19:16 BP 122 / 69; Pulse 113; Resp 26; Temp 99.6; Pulse Ox 96% on R/A; Pain 6/10; mt4 06/26 06:55 BP 96 / 52; Pulse 101; Resp 20 S; Pulse Ox 91% on R/A; br2 06/25 15:41 Body Mass Index 42.07 (104.33 kg, 157.48 cm) cm10 06/25 15:41 Pain Scale: Adult cm10 19:16 Pain Scale: Adult mt4 ED Course: 06/25 15:38 Patient arrived in ED. cm10 15:39 Bossman Sumner MD is Attending Physician. rn 15:42 Triage completed. cm10 15:48 Magy Gallagher, NAILA is Primary Nurse. cm10 15:49 Arm band placed on right wrist. Patient placed in an exam room, on a stretcher, on cm10 oxygen, on classroom monitor, on pulse oximetry. 15:50 Patient has correct armband on for positive identification. Bed in low position. Call cm10 light in reach. Side rails up X2. Provided Education on: ER process and procedures.. Client placed on continuous cardiac and pulse oximetry monitoring. NIBP monitoring applied. nuclear monitoring technician on. 16:14 XRAY Chest (1 view) In Process Unspecified. EDMS 17:09 Inserted saline lock: 22 gauge in left hand, using aseptic technique. Blood collected. cm10 Flushed with 10 mL NS Maintain EMS IV. Dressing intact. Good blood return noted. Site clean \T\ dry. Gauge \T\ site: 20g Left AC. Flushed with 10 mL NS. 17:27 Emily Segura MD is Hospitalizing Provider. rn 19:03 Report given to NAILA Urrutia. cm10 19:16 Ghada Holley RN is Primary Nurse. mt4 06/26 00:44 Primary Nurse role handed off by Ghada Holley RN br2 00:44 Rhona Amado RN is Primary Nurse. br2 Administered Medications: 06/25 16:31 Drug: Levalbuterol Inhalation 1.25 mg Inhalation once Route: Inhalation; cm10 23:00 Follow up: Response: No adverse reaction br2 16:31 Drug: Magnesium Sulfate IVPB 1 grams IVPB once over 1 hrs Route: IVPB; Infused Over: 1 cm10 hrs; Site: right antecubital; 17:34 Follow up: Response: No adverse reaction; IV Status: Completed infusion; IV Intake: cm10 100ml 16:31 Drug: Ipratropium Inhalation Aerosol 0.5 mg Inhalation once Route: Inhalation; cm10 23:00 Follow up: Response: No adverse reaction br2 17:33 Drug: Levalbuterol Inhalation 1.25 mg Inhalation once Route: Inhalation; cm10 23:00 Follow up: Response: No adverse reaction br2 17:33 Drug: Zithromax IVPB 500 mg IVPB once over 1 hrs; mix in 250 mL NS Route: IVPB; Infused cm10 Over: 1 hrs; Site: left hand; 18:35 Follow up: Response: No adverse reaction; IV Status: Completed infusion; IV Intake: cm10 250ml Medication: 15:49 VIS not applicable for this client. cm10 Intake: 17:34 IV: 100ml; Total: 100ml. cm10 18:35 IV: 250ml; Total: 350ml. cm10 Outcome: 17:28 Decision to Hospitalize by Provider. rn 06/26 12:29 Patient left the ED. ko1 Signatures: Dispatcher [employer] EDMS Bossman Sumner MD MD rn Oliver, Kathy, RN RN ko1 Magy Gallagher RN RN cm10 Ghada Holley RN NAILA mt4 Rhona Amado RN RN br2 Jaimee Vázquez am7 Corrections: (The following items were deleted from the chart) 06/25 15:48 15:41 BP 153 / 93; Pulse 119bpm; Pulse Ox 97%; Temp 98.9F; am7 cm10 15:49 15:41 BP 153 / 93; Pulse 119bpm; Pulse Ox 97% 4 lpm Nasal Cannula; Temp 98.9F; 104.33 cm10 kg; Height 5 ft. 2 in.; BMI: 42.0; Pain 7/10, Adult; cm10 15:50 15:48 Respiratory: Reports shortness of breath Airway is patent Respiratory effort is cm10 labored, Respiratory pattern is tachypnea Onset: The symptoms/episode began/occurred gradually, the patient has moderate shortness of breath cm10 17:11 17:10 BP 132 / 85; Pulse 121bpm; Resp 22bpm; Pulse Ox 98% 3 lpm Nasal Cannula; Temp cm10 98.9F Oral; cm10
[2024-06-25] MEDS: NA CHLORIDE 0.9% 1,000 ML IV SCH (19:27)
--- NOTE | 2024-06-25 19:28 | P.CNS ---
Date of Consult: 06/25/24 Reason for Consult: Respiratory distress Chief Complaint: Shortness of breath History of Present Illness: Patient is 43 years of age admitted with acute onset of shortness of breath hypoxemia she was bad last night by the bedside became progressively worse she was brought here by the ambulance also complaining of some chills has a history of asthma uses Breztri coughing up some productive sputum still very tachypneic despite bronchodilators Allergies No Known Allergies Allergy (Unverified 06/15/22 13:35) Home Medications: Duloxetine HCl [Cymbalta] 30 mg PO BID 06/16/22 Hydroxychloroquine [Plaquenil*] 200 mg PO BID 06/16/22 Hydroxyzine HCl [Atarax] 10 mg PO BEDTIME 06/16/22 Montelukast Sodium [Singulair] 10 mg PO DAILY 06/16/22 sulfaSALAzine [Azulfidine] 3 tab PO BID 06/16/22 Albuterol Neb [Proventil 0.083% Neb Soln] 1 vial IH Q8H PRN 30 Days #60 vial 06/18/22 Azithromycin 250 mg PO DAILY 4 Days #4 tab 06/18/22 Ipratropium Neb [Atrovent*] 1 vial IH Q8H PRN 30 Days #60 vial 06/18/22 Nebulizer [Truneb Nebulizer] 1 each MC DAILY PRN 90 Days #1 unit 06/18/22 predniSONE [Prednisone*] 20 mg PO SEECOM 7 Days #10 tab 06/18/22 - Past Medical/Surgical History Diabetic: No -: Asthma -: Chiari malformation. -: Connective tissue disease. -: Morbid obesity -: X2 -: fibroma -: decompression/ revision surgery - Social History Alcohol use: No CD- Drugs: No Caffeine use: Yes Review of Systems 10-point ROS is otherwise unremarkable General: Weakness Respiratory: Cough, Shortness of Breath Physical Examination General: Alert, Moderate distress Respiratory: Clear to auscultation bilaterally, Diminished Cardiovascular: No edema, Regular rate/rhythm, Normal S1 S2 Gastrointestinal: Normal bowel sounds, Soft and benign Musculoskeletal: No clubbing, No swelling Laboratory Data (last 24 hrs) 06/25/24 06/25/24 06/25/24 16:16 16:15 16:15 WBC 5.60 Hgb 12.3 Hct 39.5 Plt Count 251 PT 13.1 H INR 1.18 APTT 33.5 Sodium 134 L Potassium 3.9 BUN 5 L Creatinine 0.97 Glucose 127 H Total Bilirubin 0.4 AST 14 L ALT 23 Alkaline Phosphatase 85 - Problems (1) Respiratory distress Current Visit: Yes Status: Acute Plan: Patient is 73 years of age with a history of asthma usually well-controlled admitted with acute onset of dyspnea cough productive sputum chest x-ray is clear she continues to remain tachypneic despite breathing treatments agree with steroids bronchodilators antibiotics have also ordered CT pulmonary angiogram meanwhile anticoagulate until CT results are available continue with bronchodilators labs reviewed white count is normal chemistry is unremarkable apart from mild microcytosis
[2024-06-25 19:57] VITALS: BMI 42.0
[2024-06-25] MEDS: ENOXAPARIN 100 MG/ML SYR SQ ONE (20:00)
[2024-06-25] MEDS ORDERED: NA CHLORIDE 0.9% 1,000 ML ONE (20:03)
--- NOTE | 2024-06-25 20:08 | RAD REPORT ---
EXAMINATION: CTA CHEST PE CLINICAL INDICATION: Female, 43 years old. RO PE TECHNIQUE: This examination was performed according to an angiographic protocol with 3D post-processi ng. This involves 3D reconstructions, MIPs, volume rendered images and/or shaded surface rendering. One or more of the following dose reduction techniques were used: Automated exposure control, adjustm ent of the mA and/or kV according to patient size, and/or iterative reconstruction. Unless otherwise specified, incidental findings do not require dedicated imaging follow-up. [id number]. COMPARISON: Same day chest radiograph. FINDINGS: LOWER NECK: 2.6 cm low-density left thyroid nodule. This is been previously evaluated with ultrasound on 08/19/2015. LUNGS AND AIRWAYS: Mild bronchial wall thickening best seen in the lower lobes. Linear scarring versu s subsegmental atelectasis in the lingula and left lower lobe. No focal airspace disease otherwise identified.No suspicious and/or stable pulmonary nodules. PLEURA: No pleural effusion. No pneumothorax. Hemidiaphragms are normally positioned. MEDIASTINUM AND LYMPH NODES: No mediastinal mass or fluid collection. Normal size mediastinal, hilar, and axillary lymph nodes. THORACIC AORTA: No thoracic aortic aneurysm. PULMONARY ARTERIES: Caliber is within normal limits. No pulmonary emboli identified. HEART: Normal heart size. No coronary calcifications.No significant pericardial effusion. OSSEOUS STRUCTURES AND CHEST WALL: No fracture or suspicious osseous lesions. UPPER ABDOMEN: No acute findings.Hepatic steatosis. IMPRESSION: No evidence of pulmonary emboli to the subsegmental level. Nonspecific bronchial wall thickening in t he lower lungs. No focal airspace disease or pulmonary edema.
[2024-06-25] MEDS ORDERED: ACETAMINOPHEN 500 MG TAB ONE (20:37)
[2024-06-25] MEDS: ACETAMINOPHEN 500 MG TAB PO PRN (20:39)
[2024-06-25] MEDS: CEFTRIAXONE 1,000 MG in NA CHLORIDE 0.9% 50 ML IVPB SCH (20:41)
[2024-06-25] MEDS ORDERED: ACETAMINOPHEN 500 MG TAB PO PRN (20:41)
[2024-06-25] MEDS: METHYLPREDNISOLONE 40 MG INJ IV SCH (20:41)
[2024-06-25] MEDS ORDERED: ALBUTEROL 2.5 MG/3 ML NEB SOL NEB PRN (20:41)
[2024-06-25] MEDS: FUROSEMIDE 20 MG/ 2ML VIAL IV ONE (20:41)
[2024-06-25] MEDS: ENOXAPARIN 100 MG/ML SYR SQ SCH (21:00)
[2024-06-25] MEDS ORDERED: FUROSEMIDE 20 MG/ 2ML VIAL ONE (21:20)
[2024-06-25] MEDS ORDERED: CEFTRIAXONE 1000 MG/VIAL ONE (21:20)
[2024-06-25] MEDS ORDERED: METHYLPREDNISOLONE 40 MG INJ ONE (21:20)
[2024-06-25] MEDS ORDERED: NA CHLORIDE 0.9% 0 ML ONE ×2 (21:20→21:27)
[2024-06-25] MEDS ORDERED: ONDANSETRON 4 MG/2 ML VIAL ONE (21:38)
[2024-06-25] MEDS: ONDANSETRON 4 MG/2 ML VIAL IV PRN (21:39)
[2024-06-26] MEDS ORDERED: IPRATROPIUM BROM 0.5MG/2.5ML ONE (00:16)
--- NOTE | 2024-06-26 01:44 | HP ---
Date of Admission: 06/25/2024 Chief Complaint: Fever, chills, body ache, cough, congestion, and shortness of breath. History Of Present Illness: This is a 43-year-old pleasant female patient who was doing fine in her normal usual state of health until yesterday late evening she started to have some sore throat and then subsequently started to have fever, chills, body ache, and headache. After she woke up this morning, she started to have cough, chest congestion, coughing up some colored mucus, shortness of breath, and wheezing. With those symptoms, [facility] where she was evaluated and she was asked to come to emergency room, and she was brought in via ambulance. After she was evaluated in the emergency room, she was admitted to the hospital with acute exacerbation of asthma problem. After she has received initial treatment in emergency room, she has started to show some improvement. When I saw her this evening, she was still in the emergency room waiting for bed assignment, and her was with her at bedside. Review of Systems: Respiratory: As mentioned above. Constitutional: As mentioned above. All other systems reviewed and negative. Allergies: NO KNOWN ALLERGIES. Medications: Albuterol inhaler as needed, albuterol nebulizer treatment as needed, Breztri inhaler 2 puffs 2 times a day, fluticasone nasal spray 1 spray each nostril 2 times a day, montelukast 10 mg daily, gabapentin 300 mg 2 times a day, pantoprazole 40 mg daily, and Mounjaro 2.5 mg once a week. Past Medical History: Asthma, constipation, allergic rhinitis, sinus tachycardia, lumbar radiculopathy, iron-deficiency anemia, obstructive sleep apnea, type 2 diabetes mellitus. Past Surgical History: Surgery for Arnold-Chiari malformation in 2012, C- section, tubal ligation, hysterectomy. Family History: Mother has hypertension. Social History: Negative for smoking, alcohol use. Physical Examination: Vital Signs: Temperature 100.8, pulse 119, respiratory rate 22, blood pressure 101/64, oxygen saturation 95%. Height 5 feet 2 inches, weight 230 pounds. General: Awake, alert, oriented, not in distress. HEENT: Head atraumatic, normocephalic. Conjunctivae nonerythematous. Sclerae white. Mouth, no thrush or edema noted. Ears/Nose, no mass, lesion, discharge noted. Neck: Supple. No JVD, lymph nodes, bruit, thyromegaly noted. Lungs: Presence of some wheezing noted in lower lung arango. Not using accessory muscles of respiration at rest. Heart: Normal heart sounds, no murmur or gallop. Abdomen: Soft, bowel sounds normal. No guarding, rigidity, tenderness, mass, hepatosplenomegaly, distention, or bruit noted. Extremities: No leg edema. No calf tenderness. Skin: No rash, ulcer, cellulitis. Lymphatics: No lymph node enlargement in neck, supraclavicular, infraclavicular region. Neuro: No focal neurological deficit. Chest: Unremarkable. External Genitalia: Deferred. Rectal: Deferred. Laboratory Data: Chest x-ray showed some peribronchial wall thickening consistent with bronchitis. No evidence of pneumonia. WBC 5.6, hemoglobin 12.3, and platelet count 251. Sodium 134, potassium 3.9, chloride 101, bicarb 25, BUN 5, creatinine 0.97, glucose 127. Lactic acid 1. Liver function test unremarkable. The patient had negative influenza A and B, and COVID-19 test done at [facility]. Impression: 1. Acute exacerbation of mild persistent asthma. 2. Acute bronchitis. 3. Type 2 diabetes mellitus. 4. Chronic constipation. 5. Sinus tachycardia. 6. Iron-deficiency anemia. 7. Obstructive sleep apnea. Plan: We will go ahead and admit the patient to hospital for further evaluation and management of this problem. The patient is appropriate for inpatient and is expected to spend 2 midnights in hospital. We will treat her asthma exacerbation with steroid, nebulizer treatment, oxygen as needed. For acute bronchitis, we will go ahead and use antibiotic per order. For diabetes, she uses Mounjaro at home and no other medication, and while in the hospital no need for any further intervention for that. For sleep apnea, the patient should continue to use her CPAP machine and no need for any further intervention while in the hospital. Iron-deficiency anemia will not require any further intervention. DVT prophylaxis will be given, using Lovenox per order. Total time spent 80 minutes, including review of emergency room visit record, communication with the emergency room provider, review of last office visit record from 04/25/2024, and performing today's evaluation and management. I will see her tomorrow for followup. Details and plan of treatment discussed with the patient and the patient's who was at bedside. ISAURA/KIM Voice ID: [id number] MTDD
[2024-06-26] MEDS ORDERED: METHYLPREDNISOLONE 40 MG INJ ONE (06:38)
[2024-06-26] MEDS: IPRATROPIUM BROM 0.5MG/2.5ML NEB SCH ×2 (07:00→19:00)
[2024-06-26] MEDS ORDERED: FLU (Fluarix Triv) TS24-25(6MOS UP)/PF 45 MCG/0.5 ML Syringe IM ONE (08:00)
[2024-06-26] MEDS ORDERED: CEFTRIAXONE 1000 MG/VIAL ONE (10:06)
[2024-06-26] MEDS ORDERED: ONDANSETRON 4 MG/2 ML VIAL ONE (10:18)
--- NOTE | 2024-06-26 11:54 | PN ---
Date of Progress Note: 06/26/2024 Subjective: The patient was seen this morning for followup. No new complaints or problems reported by her except just feeling sore all over her body because she was still in the emergency room on the stretcher. Her cough, chest congestion, and wheezing are better compared to yesterday. Objective: Vital Signs: Reviewed. HEENT: Unremarkable. Lungs: Bilateral good equal air entry. Not using accessory muscles of respiration, but has scattere d wheezing in the lung arango. Heart: Sounds normal. Abdomen: Soft. Bowel sounds normal. No guarding, rigidity, tenderness, distention. Extremities: No leg edema. Impression: 1.Acute exacerbation of mild persistent asthma. 2.Type 2 diabetes mellitus. 3.Obstructive sleep apnea. Plan: We will go ahead and continue current antibiotic. Continue current steroid nebulizer treatmen t. Patient's chest CT scan per PE protocol which was done late yesterday was negative for pulmonary embolism. We will continue Lovenox for DVT prophylaxis and plan is to potentially discharge her to o home tomorrow depending on her condition. Today, I have encouraged her to get up and ambulate and also had asked emergency room nurse to see while waiting on the bed availability upstairs if we can a t least use the hospital bed for the patient to provide more comfort. ISAURA/MODL Voice ID: [id number] Report ID: [id number]
[2024-06-26] MEDS: ENOXAPARIN 40 MG/0.4 ML SQ SCH (12:42)
[2024-06-26] MEDS: GABAPENTIN 300 MG CAP PO SCH (13:21)
[2024-06-26] MEDS: PANTOPRAZOLE 40MG TABLET PO SCH (13:21)
[2024-06-26] MEDS: MONTELUKAST 10 MG TAB PO SCH (13:21)
[2024-06-26] MEDS: DULERA 100/5 (MOMETASONE/FORMOTEROL) INHALER IH SCH (14:35)
[2024-06-26] MEDS: ALBUTEROL 2.5 MG/3 ML NEB SOL NEB PRN (21:12)
[2024-06-27 05:03] VITALS: O2SAT 92
[2024-06-27] MEDS: GUAIFENESIN 600 MG SA TAB PO SCH (07:26)
[2024-06-27 08:54] VITALS: BP 105/50; TEMP 97.5
--- NOTE | 2024-06-27 10:23 | P.PN ---
Subjective Date of Service: 06/27/24 Chief Complaint: Asthma exacerbation He is doing much better shortness of breath has improved significantly new complaints exacerbation was 6 months ago was doing well on Breztri Review of Systems Unremarkable Physical Examination - Vital Signs Temperature: 97.5 F Blood Pressure: 105/50 Pulse: 90 Respirations: 16 Pulse Ox (%): 94 - Physical Exam General: Alert, Oriented x3 Respiratory: Clear to auscultation bilaterally Cardiovascular: No edema, Regular rate/rhythm Assessment And Plan - Current Problems (Diagnosis) (1) Asthma exacerbation Current Visit: No Status: Acute Plan: Patient is 43 years of age admitted with asthma exacerbation doing much better plan to discharge home on prednisone continue with Breztri history of sleep apnea was just recently prescribed CPAP by me follow-up in [address] angiogram no evidence of thromboembolism signs oxygenation satisfactory Qualifiers: Asthma severity: severe
--- NOTE | 2024-06-27 11:40 | DS ---
Date of Discharge: 06/27/2024 Disposition: Discharged to go home. Physical Examination: HEENT: Unremarkable. Lungs: Clear to auscultation. Heart: Sounds normal. Abdomen: Soft. Bowel sounds normal. No guarding, rigidity, tenderness, distention. Extremities: No leg edema. Discharge Medications And Instructions: 1.Continue all prior home medications. 2.Start following new medications: a.Cefuroxime 250 mg take 1 tablet by mouth 2 times a day with food for 1 week. b.Prednisone 10 mg, take 2 tablets by mouth 2 times a day for 4 days, then 2 tablets daily for 4 day s, then 1 tablet daily for 4 days, then half tablet daily for 4 days, take it with food. c.Dulera inhaler, take 2 puffs by mouth 2 times a day, rinse mouth with water after each use. d.Take kaji-hah-rmfagvh Mucinex 500 to 600 mg 2 times a day as needed for cough/congestion. 3.Follow up at office next week. 4.The patient was also instructed to take Metamucil fiber gummies, take 3 fiber gummies daily for ch ronic constipation. Hospital Course: This is a 43-year-old very pleasant female patient who was admitted to the hospital with complaints of fever, chills, body ache, cough, congestion, and shortness of breath. Please see dictated H and P for more information. After patient was evaluated in the emergency room, she was a dmitted to the hospital. The patient was admitted to the hospital with acute bronchitis and acute ex acerbation of her mild persistent asthma. She was started on IV steroid and IV antibiotic. Overall, her condition improved with this treatment provided along with nebulizer treatment and Pulmonary con sultation was requested from Dr. Lu who ordered CT scan of the chest per PE protocol, which cam e back negative for pulmonary embolism. The patient's condition has improved, and today, we will dis charge her to go home in stable condition. She reports having chronic constipation for many-many yea rs and that even started before she started Mounjaro, which was just started about 2 months ago and h er constipation has not gotten any worse or better since Mounjaro. She says sometimes she goes 5 to 7 days without having bowel movement and I have advised her to try this Metamucil fiber gummies on a daily basis and will also try Linzess 72 mcg daily. If her insurance covers it, she will picker operator thi s prescription and start it. Otherwise, she will at least try Metamucil fiber gummies on a daily bas is. She was advised to keep herself well hydrated. Final Diagnoses: 1.Acute exacerbation of mild persistent asthma. 2.Acute bronchitis. 3.Chronic constipation. 4.Type 2 diabetes mellitus. 5.Sinus tachycardia. 6.Iron-deficiency anemia. 7.Obstructive sleep apnea. Total time spent today 40 minutes. ISAURA/MODL Voice ID: [id number] Report ID: [id number]
--- NOTE | 2024-06-28 12:11 | EKG ---
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
== END 2024-06-27 11:55 | disposition home or self-care (01) | DRG 202 ==
LOC: ER 14:55 → ERHOLD 17:47 → 4TH 06-26 12:07
PROVIDERS: ADMIT Internal Medicine; ATTEND Internal Medicine
DX: J45.51 Severe persistent asthma with (acute) exacerbation (principal); Z68.41 Body mass index [BMI] 40.0-44.9, adult; E66.01 Morbid (severe) obesity due to excess calories; J20.9 Acute bronchitis, unspecified; E11.9 Type 2 diabetes mellitus without complications; K59.09 Other constipation; D50.9 Iron deficiency anemia, unspecified; G47.33 Obstructive sleep apnea (adult) (pediatric); R00.0 Tachycardia, unspecified; R06.03 Acute respiratory distress; Z79.52 Long term (current) use of systemic steroids; Z79.899 Other long term (current) drug therapy
CPT/HCPCS: 36415; 71045; 71275; 80053; 81001; 83605; 85025; 85610; 85730; 87040; 93005; 94640; 99285; J0696; J1650; J1940; J2405; J2919; J3475; J3535; J7030; J7050; J7613; J7614; J7644; Q9967